=== PATIENT | female | born 1945 | race African-American/Black ===

== ENCOUNTER 2016-07-22 12:26 | Inpatient (IN) | payer MEDICARE ==
[~2016-07-22] VITALS: Ht 160 cm; Wt 68.2 kg
[~2016-07-22 12:26] MED LIST: AMIO200T2 PO; ASPI-482 PO; CARV6.25 PO; CRESTOR10 MG PO; DIGO0.25 PO; FURO-68 PO; FURO80TA72 PO; GABA-585 PO; INSU100V13 SQ; LISI5TAB PO; LOPE1LIQ7 PO; METF10002 PO; POTA20TA84 PO; WARF6TAB PO
[2016-07-22] MEDS ORDERED: FUROSEMIDE 40 MG/4 ML VIAL IVP ONE (15:30)
[2016-07-22] MEDS ORDERED: 0.9 % SODIUM CHLORIDE 10 ML DISP.SYRIN. IV PRN (15:45)
[2016-07-22] MEDS ORDERED: DEXTROSE 50% 25 GM / 50ML DISP.SYRIN. IV PRN (15:45)
[2016-07-22 15:59] LABS: BASO % 1 % (0-3); EOS % 2 % (0-3); HEMATOCRIT 36.2 % (36.0-47.0); HEMOGLOBIN 11.4 g/dL (12.0-15.5); LYMPH % 18 % (24-48); MEAN CORPUSCULAR HEMOGLOBIN 25 pg (25-35); MEAN CORPUSCULAR HGB CONC 31 g/dL (31-37); MEAN CORPUSCULAR VOLUME 80 fL (79-100); MONO % 12 % (0-9); NEUT % 67 % (31-73); PLATELET COUNT 137 x10^3/uL (140-400); RED BLOOD COUNT 4.53 x10^6/uL (3.50-5.40); RED CELL DISTRIBUTION WIDTH 17.2 % (11.5-14.5); WHITE BLOOD COUNT 5.5 x10^3/uL (4.0-11.0)
[2016-07-22] MEDS ORDERED: METO5TAB55 PO (15:59)
[2016-07-22] MEDS ORDERED: COLE1TAB PO (15:59)
[2016-07-22] MEDS ORDERED: AMIO200T7 PO (15:59)
[2016-07-22] MEDS ORDERED: WARF5TAB7 PO (15:59)
[2016-07-22] MEDS ORDERED: INSU100I30 SQ ×2 (15:59→16:07)
[2016-07-22] MEDS ORDERED: ATOR40TA59 PO (15:59)
--- NOTE | 2016-07-22 16:03 | RAD ---
EXAM: Chest one view. HISTORY: Shortness of breath, lower extremity edema. COMPARISON: 06/05/2014. FINDINGS: A frontal view of the chest is obtained. A left-sided pacemaker/defibrillator has its leads in the right atrium, right ventricle and a left cardiac vein. A linear opacity in the left midlung may be mild atelectasis or scarring. A trace right pleural effusion may be present. There is no pneumothorax. The heart is moderately enlarged. IMPRESSION: 1. Moderate cardiomegaly. Possible small right pleural effusion.
[2016-07-22 16:07] LABS: CALCIUM 8.9 mg/dL (8.5-10.1); CREATININE 1.7 mg/dL (0.6-1.0); GFR 35.6; POTASSIUM 4.3 mmol/L (3.5-5.1)
[2016-07-22] MEDS ORDERED: METO10TA81 PO (16:07)
[2016-07-22] MEDS: IPRATRPIUM/ALBUTEROL 0.5/2.5MG 3 ML NEBU. NEB SCH ×2 (16:41→19:39)
[2016-07-22 16:56] VITALS: BP 108/66
[2016-07-22] MEDS ORDERED: METOCLOPRAMIDE 10 MG TABLET PO PRN (17:30)
[2016-07-22 18:14] LABS: PROTHROMBIN TIME PATIENT 40.8 SEC (11.7-14.0)
[2016-07-22 18:17] LABS: INR 4.6 (0.8-1.1)
[2016-07-22] MEDS: POTASSIUM CHLORIDE 20 MEQ TABLET.ER. PO SCH (18:41)
[2016-07-22] MEDS: METFORMIN 1,000 MG TABLET PO SCH (18:42)
[2016-07-22] MEDS: CARVEDILOL 6.25 MG TABLET PO SCH (18:42)
[2016-07-22 19:48] VITALS: BP 139/66
[2016-07-22] MEDS: GABAPENTIN 100 MG CAPSULE. PO SCH (20:48)
[2016-07-22] MEDS: COLESTIPOL HCL 1 GM TABLET PO SCH (20:48)
--- NOTE | 2016-07-22 21:27 | PDOC ---
Provider Note Provider Note Pt seen.H&P dictated. #[id number] AFSHAN SLADE MD Jul 22, 2016 21:27
[2016-07-22 23:00] VITALS: BP 139/66
--- NOTE | 2016-07-23 00:47 | HP ---
ADMIT DATE: 07/22/2016 PATIENT LOCATION: 268. ATTENDING PHYSICIAN: Dr. Garcia. REASON FOR ADMISSION TO THE HOSPITAL: Shortness of breath, swelling of the lower extremities, congestive heart failure, acute on chronic systolic heart failure. HISTORY OF PRESENT ILLNESS: The patient is a 71-year-old female patient known to me. She has a history of cardiomyopathy, dilated and she has an ejection fraction of 20%. She had an AICD and she was complaining of shortness of breath as well as swelling in lower extremities and was found to be in congestive heart failure notoriously worse in last 4-5 days and was admitted to the hospital for congestive heart failure. PAST MEDICAL HISTORY: History of hypertension, diabetes, congestive heart failure, cardiomyopathy, AICD. PAST SURGICAL HISTORY: Tubal , right tube removed, AICD, gallbladder surgery, cardiac catheterization in the past. FAMILY HISTORY: Hypertension, diabetes, heart disease in the family. SOCIAL HISTORY: Denies smoking, alcohol or drug abuse. 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 ALLERGIES: CONTRAST, IVP DYE. MEDICATIONS: She is on Coumadin 5 mg, digoxin 250 mg, Lasix 80 mg twice a day, gabapentin 100 mg 2 tablets 3 times daily, Reglan 5 mg 4 times daily, Levemir she cut down to less than 10 units daily, lisinopril 5 mg daily, Pacerone 200 mg daily, atorvastatin 40 mg daily, Coreg 6.25 twice a day, potassium 20 mEq twice a day, metformin 1000 mg twice a day and Imodium p.r.n. REVIEW OF SYSTEMS: CARDIAC: No chest pain, has some shortness of breath. GASTROINTESTINAL: No nausea or vomiting. NEUROLOGICAL: No weakness. EXTREMITIES: The patient has some swelling in lower extremities. PHYSICAL EXAMINATION: VITAL SIGNS: At the time of admission shows a temperature 98, pulse 63, respirations 16, blood pressure 108/66, 96% on room air. HEENT: Head is atraumatic. Pupils equal. Oral cavity: No congestion. NECK: Supple. Thyroid not enlarged. JVD is elevated. CHEST: Symmetrical, has a pacemaker, AICD, left-sided chest. CARDIOVASCULAR: S1, S2. LUNGS: Few crackles at the bases. ABDOMEN: Soft. No mass palpable. EXTERNAL GENITALIA: No [place]. RECTAL: Deferred. EXTREMITIES: 2+ edema of the dorsum of the feet, 1+ of the lower legs. NEUROLOGIC: Cranial nerves intact. Power 5/5 in all extremities. LABORATORY DATA: White count is 5.5, hemoglobin 11, platelets 137. Electrolytes: Sodium 141, potassium 4.3, chloride 104, bicarbonate 29, BUN 45, creatinine 1.7, glucose 87. BNP 22,673. INR is 4.6. Chest x-ray shows cardiomegaly with right pleural effusion. EKG done, report is pending. FINAL IMPRESSION: 1. Acute on chronic systolic heart failure. 2. Dilated cardiomyopathy. 3. An implantable cardioverter defibrillator present, ejection fraction 20%. 4. Diabetes type 2. 5. Hypertension. 6. Hyperlipidemia. 7. Diabetic gastroparesis. PLAN: At this time, was admitted to the hospital. The patient was admitted to the hospital. RONALDO Leahy. Cardiology consultation, echocardiogram. ADDENDUM: The patient had a pacemaker battery replaced last year at the [place] and we will have Cardiology see the patient. AFSHAN GARCIA MD DR: JALYN/david JOB#: [id number] / [id number]
[2016-07-23 02:30] VITALS: BP 127/57
[2016-07-23 04:50] LABS: BASO % 0 % (0-3); EOS % 4 % (0-3); HEMATOCRIT 33.8 % (36.0-47.0); HEMOGLOBIN 10.8 g/dL (12.0-15.5); LYMPH % 19 % (24-48); MEAN CORPUSCULAR HEMOGLOBIN 25 pg (25-35); MEAN CORPUSCULAR HGB CONC 32 g/dL (31-37); MEAN CORPUSCULAR VOLUME 78 fL (79-100); MONO % 12 % (0-9); NEUT % 66 % (31-73); PLATELET COUNT 128 x10^3/uL (140-400); RED BLOOD COUNT 4.32 x10^6/uL (3.50-5.40); RED CELL DISTRIBUTION WIDTH 17.1 % (11.5-14.5); WHITE BLOOD COUNT 5.3 x10^3/uL (4.0-11.0)
[2016-07-23 04:58] LABS: PROTHROMBIN TIME PATIENT 41.8 SEC (11.7-14.0)
[2016-07-23 05:10] LABS: ALBUMIN 3.2 g/dL (3.4-5.0); ALBUMIN/GLOBULIN RATIO 1.1 (1.0-1.7); CALCIUM 8.7 mg/dL (8.5-10.1); CREATININE 1.5 mg/dL (0.6-1.0); GFR 41.2; POTASSIUM 4.5 mmol/L (3.5-5.1); TOTAL BILIRUBIN 0.5 mg/dL (0.2-1.0); TOTAL PROTEIN 6.2 g/dL (6.4-8.2)
[2016-07-23 05:16] LABS: CHOLESTEROL 93 mg/dL (0-200); HDLC 25 mg/dL (40-60); TRIGLYCERIDES 140 mg/dL (0-150)
[2016-07-23 05:30] LABS: CHOLESTEROL/HDL RATIO 3.7
[2016-07-23 05:39] LABS: INR 4.7 (0.8-1.1)
[2016-07-23 07:00] VITALS: BP 142/40
[2016-07-23] MEDS: IPRATRPIUM/ALBUTEROL 0.5/2.5MG 3 ML NEBU. NEB SCH (07:23)
[2016-07-23] MEDS ORDERED: LISINOPRIL 5 MG TABLET. PO SCH (09:00)
[2016-07-23] MEDS ORDERED: DIGOXIN 250 MCG TABLET PO SCH (09:00)
[2016-07-23] MEDS ORDERED: FUROSEMIDE 40 MG/4 ML VIAL IVP SCH (09:00)
[2016-07-23] MEDS: COLESTIPOL HCL 1 GM TABLET PO SCH ×3 (09:14→20:58)
[2016-07-23] MEDS: CARVEDILOL 6.25 MG TABLET PO SCH ×2 (09:14→17:21)
[2016-07-23] MEDS: ASPIRIN ENTERIC COATED 81 MG TABLET.DR. PO SCH (09:14)
--- NOTE | 2016-07-23 09:14 | EKG ---
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
[2016-07-23] MEDS: METFORMIN 1,000 MG TABLET PO SCH ×2 (09:15→17:22)
[2016-07-23] MEDS: AMIODARONE HCL 200 MG TABLET PO SCH (09:16)
[2016-07-23] MEDS: GABAPENTIN 100 MG CAPSULE. PO SCH ×3 (09:16→20:58)
[2016-07-23] MEDS: FUROSEMIDE 40 MG/4 ML VIAL IVP SCH ×2 (09:17→20:59)
[2016-07-23] MEDS: POTASSIUM CHLORIDE 20 MEQ TABLET.ER. PO SCH ×2 (09:22→17:22)
[2016-07-23 11:00] VITALS: BP 148/70
--- NOTE | 2016-07-23 13:45 | PDOC2 ---
CONSULT Date of Consult Date of Consult DATE: 07/23/16 TIME: 13:38 Reason for Consult Reason for Consult: Acute on chronic systolic heart failure Referring Physician Referring Physician: Dr Garcia Identification/Chief Complaint Chief Complaint Swelling in lower extremities b/l, SOB History of Present Illness Reason for Visit: This is a pleasant 71 year old female who presented with complaints of swelling in lower extremities b/l and shortness of breath. She has a known history of CHF as well as dilated cardiomyopathy and a pacemaker. Swelling was worse at night but she also states that it did not improve much as she slept with her feet elevated. She states that she noticed swelling worsening over the last week , which had become painful, and was the cause for her to visit to Dr Garcia for examination, and he sent her to the hospital. She takes Lasix 80mg BID and denies having missed any doses. After admission, she was given Lasix IV and today she states that the swelling is greatly improved and that she has not felt shortness of breath today and has not done any breathing treatments. She has also received an echo this admission. Current Medications Current Medications Current Medications Furosemide (Lasix) 40 mg BID92 IVP ; Start 07/23/16 at 09:00; Stop 07/23/16 at 09: 00; Status DC Furosemide (Lasix) 40 mg 1X ONCE IVP Last administered on 07/22/16 15:30; Start 07/22/16 at 15:30; Stop 07/22/16 at 15:38; Status DC Albuterol/ Ipratropium (Duoneb) 3 ml RTQID NEB Last administered on 07/23/16 07 :23; Start 07/22/16 at 16:00; Stop 07/23/16 at 07:40; Status DC Albuterol Sulfate (Ventolin Neb Soln) 2.5 mg PRN Q4HRS PRN NEB SOA; Start at 15:45 Dextrose 12.5 gm PRN Q15MIN PRN IV SEE COMMENTS; Start 07/22/16 at 15:45 Sodium Chloride (Normal Saline Flush) 3 ml PRN DAILY PRN IV AFTER MEDS AND BLOOD DRAWS; Start 07/22/16 at 15:45 Amiodarone HCl (Cordarone) 200 mg DAILY PO Last administered on 07/23/16 09:16 ; Start 07/23/16 at 09:00 Aspirin (Ecotrin) 81 mg DAILY PO Last administered on 07/23/16 09:14; Start 07/23/16 at 09:00 Atorvastatin Calcium (Lipitor) 40 mg QHS PO ; Start 07/23/16 at 21:00 Carvedilol (Coreg) 6.25 mg BIDWMEALS PO Last administered on 07/23/16 09:14; Start 07/22/16 at 18:30 Colestipol HCl (Colestid) 1 gm TID PO Last administered on 07/23/16 09:14; Start 07/22/16 at 21:00 Gabapentin (Neurontin) 200 mg TID PO Last administered on 07/23/16 09:16; Start 07/22/16 at 21:00 Lisinopril (Prinivil) 5 mg DAILY PO Last administered on 07/23/16 09:15; Start 07/23/16 at 09:00 Metformin HCl (Glucophage) 1,000 mg BIDWMEALS PO Last administered on 07/23/16 09:15; Start 07/22/16 at 18:30 Metoclopramide HCl (Reglan) 5 mg PRN BID PRN PO NAUSEA; Start 07/22/16 at 17:30 Warfarin Sodium (Coumadin) 5 mg DAILY16 PO ; Start 07/24/16 at 16:00 Digoxin (Lanoxin) 250 mcg DAILY PO Last administered on 07/23/16 09:15; Start 07/23/16 at 09:00 Potassium Chloride (Klor-Con) 20 meq BIDWMEALS PO Last administered on 09:22; Start 07/22/16 at 18:30 Furosemide (Lasix) 80 mg Q12HR IVP Last administered on 07/23/16 09:17; Start 07/23/16 at 09:00 Warfarin Sodium (Coumadin Per Physician) 1 each PRN DAILY PRN MC SEE COMMENTS Last administered on 07/23/16 10:36; Start 07/22/16 at 18:30 Active Scripts Active Prinivil (Lisinopril) 5 Mg Tablet 5 Mg PO DAILY Reported Tresiba Flextouch U-100 (Insulin Degludec) 100 Unit/1 Ml Insuln.pen 100 Unit SQ PRN QHS PRN Reglan (Metoclopramide Hcl) 10 Mg Tablet 5 Mg PO PRN BID PRN Atorvastatin Calcium 40 Mg Tablet 1 Tab PO DAILY Colestid (Colestipol Hcl) 1 Gm Tablet 1 Gm PO TID Pacerone (Amiodarone Hcl) 200 Mg Tablet 200 Mg PO DAILY Warfarin Sodium 5 Mg Tablet 1 Tab PO DAILY Lasix (Furosemide) 80 Mg Tablet 1 Tab PO BID Digoxin 0.25 Mg/5 Ml Solution 0.25 Mg PO DAILY Gabapentin 100 Mg Capsule 2 Cap PO TID Aspir 81 (Aspirin) 81 Mg Tablet.dr 1 Tab PO DAILY Coreg (Carvedilol) 6.25 Mg Tablet 1 Tab PO BID Metformin Hcl 1,000 Mg Tablet 1,000 Mg PO BID K-Tab ER (Potassium Chloride) 20 Meq Tablet.er 20 Meq PO BID Allergies Allergies: Coded Allergies: Iodinated Contrast Media - Oral and (Verified Allergy, Intermediate, ) lactose (Unverified Allergy, Intermediate, 06/10/15) strawberry (Verified Allergy, Intermediate, 06/10/15) Physical Exam General: Alert, Cooperative, No acute distress Lungs: Clear to auscultation, Normal air movement Heart: Regular rate Extremities: Other (Trace edema in R LE) Vitals VITALS Vital Signs Date Time Temp Pulse Resp B/P Pulse Ox O2 Delivery O2 Flow Rate FiO2 07/23/16 11:00 98.0 61 16 148/70 97 Room Air 98.0 Labs Labs Laboratory Tests Test 07/22/16 15:50 07/22/16 17:50 07/22/16 22:57 07/23/16 04:25 White Blood Count 5.5x10^3/uL (4.0-11.0) 5.3x10^3/uL (4.0-11.0) Red Blood Count 4.53x10^6/uL (3.50-5.40) 4.32x10^6/uL (3.50-5.40) Hemoglobin 11.4g/dL (12.0-15.5) 10.8g/dL (12.0-15.5) Hematocrit 36.2% (36.0-47.0) 33.8% (36.0-47.0) Mean Corpuscular Volume 80fL (79-100) 78fL (79-100) Mean Corpuscular Hemoglobin 25pg (25-35) 25pg (25-35) Mean Corpuscular Hemoglobin Concent 31g/dL (31-37) 32g/dL (31-37) Red Cell Distribution Width 17.2% (11.5-14.5) 17.1% (11.5-14.5) Platelet Count 137x10^3/uL (140-400) 128x10^3/uL (140-400) Neutrophils (%) (Auto) 67% (31-73) 66% (31-73) Lymphocytes (%) (Auto) 18% (24-48) 19% (24-48) Monocytes (%) (Auto) 12% (0-9) 12% (0-9) Eosinophils (%) (Auto) 2% (0-3) 4% (0-3) Basophils (%) (Auto) 1% (0-3) 0% (0-3) Neutrophils # (Auto) 3.7x10^3uL (1.8-7.7) 3.5x10^3uL (1.8-7.7) Lymphocytes # (Auto) 1.0x10^3/uL (1.0-4.8) 1.0x10^3/uL (1.0-4.8) Monocytes # (Auto) 0.6x10^3/uL (0.0-1.1) 0.6x10^3/uL (0.0-1.1) Eosinophils # (Auto) 0.1x10^3/uL (0.0-0.7) 0.2x10^3/uL (0.0-0.7) Basophils # (Auto) 0.0x10^3/uL (0.0-0.2) 0.0x10^3/uL (0.0-0.2) Sodium Level 141mmol/L (136-145) 141mmol/L (136-145) Potassium Level 4.3mmol/L (3.5-5.1) 4.5mmol/L (3.5-5.1) Chloride Level 104mmol/L (98-107) 105mmol/L (98-107) Carbon Dioxide Level 29mmol/L (21-32) 26mmol/L (21-32) Anion Gap 8 (6-14) 10 (6-14) Blood Urea Nitrogen 45mg/dL (7-20) 45mg/dL (7-20) Creatinine 1.7mg/dL (0.6-1.0) 1.5mg/dL (0.6-1.0) Estimated GFR (Cockcroft-Gault) 35.6 41.2 Glucose Level 87mg/dL (70-99) 90mg/dL (70-99) Calcium Level 8.9mg/dL (8.5-10.1) 8.7mg/dL (8.5-10.1) VT-Uwr-N-Type Natriuretic Peptide 28576rr/mL (0-124) Prothrombin Time 40.8SEC (11.7-14.0) 41.8SEC (11.7-14.0) Prothromb Time International Ratio 4.6 (0.8-1.1) 4.7 (0.8-1.1) Glucose (Fingerstick) 97mg/dL (70-99) BUN/Creatinine Ratio 30 (6-20) Magnesium Level 1.7mg/dL (1.8-2.4) Total Bilirubin 0.5mg/dL (0.2-1.0) Aspartate Amino Transf (AST/SGOT) 16U/L (15-37) Alanine Aminotransferase (ALT/SGPT) 14U/L (14-59) Alkaline Phosphatase 122U/L (46-116) Total Protein 6.2g/dL (6.4-8.2) Albumin 3.2g/dL (3.4-5.0) Albumin/Globulin Ratio 1.1 (1.0-1.7) Triglycerides Level 140mg/dL (0-150) Cholesterol Level 93mg/dL (0-200) LDL Cholesterol, Calculated 40mg/dL (0-100) VLDL Cholesterol, Calculated 28mg/dL (0-40) HDL Cholesterol 25mg/dL (40-60) Cholesterol/HDL Ratio 3.7 Thyroid Stimulating Hormone (TSH) 2.525uIU/mL (0.358-3.74) Digoxin Level 3.1ng/mL (0.9-2.0) Digoxin Last Dose Date 07/22/16 Digoxin Last Dose Time 0900 Test 07/23/16 09:13 07/23/16 12:07 Glucose (Fingerstick) 91mg/dL (70-99) 116mg/dL (70-99) Laboratory Tests Test 07/22/16 15:50 07/22/16 17:50 07/22/16 22:57 07/23/16 04:25 White Blood Count 5.5x10^3/uL (4.0-11.0) 5.3x10^3/uL (4.0-11.0) Red Blood Count 4.53x10^6/uL (3.50-5.40) 4.32x10^6/uL (3.50-5.40) Hemoglobin 11.4g/dL (12.0-15.5) 10.8g/dL (12.0-15.5) Hematocrit 36.2% (36.0-47.0) 33.8% (36.0-47.0) Mean Corpuscular Volume 80fL (79-100) 78fL (79-100) Mean Corpuscular Hemoglobin 25pg (25-35) 25pg (25-35) Mean Corpuscular Hemoglobin Concent 31g/dL (31-37) 32g/dL (31-37) Red Cell Distribution Width 17.2% (11.5-14.5) 17.1% (11.5-14.5) Platelet Count 137x10^3/uL (140-400) 128x10^3/uL (140-400) Neutrophils (%) (Auto) 67% (31-73) 66% (31-73) Lymphocytes (%) (Auto) 18% (24-48) 19% (24-48) Monocytes (%) (Auto) 12% (0-9) 12% (0-9) Eosinophils (%) (Auto) 2% (0-3) 4% (0-3) Basophils (%) (Auto) 1% (0-3) 0% (0-3) Neutrophils # (Auto) 3.7x10^3uL (1.8-7.7) 3.5x10^3uL (1.8-7.7) Lymphocytes # (Auto) 1.0x10^3/uL (1.0-4.8) 1.0x10^3/uL (1.0-4.8) Monocytes # (Auto) 0.6x10^3/uL (0.0-1.1) 0.6x10^3/uL (0.0-1.1) Eosinophils # (Auto) 0.1x10^3/uL (0.0-0.7) 0.2x10^3/uL (0.0-0.7) Basophils # (Auto) 0.0x10^3/uL (0.0-0.2) 0.0x10^3/uL (0.0-0.2) Sodium Level 141mmol/L (136-145) 141mmol/L (136-145) Potassium Level 4.3mmol/L (3.5-5.1) 4.5mmol/L (3.5-5.1) Chloride Level 104mmol/L (98-107) 105mmol/L (98-107) Carbon Dioxide Level 29mmol/L (21-32) 26mmol/L (21-32) Anion Gap 8 (6-14) 10 (6-14) Blood Urea Nitrogen 45mg/dL (7-20) 45mg/dL (7-20) Creatinine 1.7mg/dL (0.6-1.0) 1.5mg/dL (0.6-1.0) Estimated GFR (Cockcroft-Gault) 35.6 41.2 Glucose Level 87mg/dL (70-99) 90mg/dL (70-99) Calcium Level 8.9mg/dL (8.5-10.1) 8.7mg/dL (8.5-10.1) AV-Foz-V-Type Natriuretic Peptide 68331ql/mL (0-124) Prothrombin Time 40.8SEC (11.7-14.0) 41.8SEC (11.7-14.0) Prothromb Time International Ratio 4.6 (0.8-1.1) 4.7 (0.8-1.1) Glucose (Fingerstick) 97mg/dL (70-99) BUN/Creatinine Ratio 30 (6-20) Magnesium Level 1.7mg/dL (1.8-2.4) Total Bilirubin 0.5mg/dL (0.2-1.0) Aspartate Amino Transf (AST/SGOT) 16U/L (15-37) Alanine Aminotransferase (ALT/SGPT) 14U/L (14-59) Alkaline Phosphatase 122U/L (46-116) Total Protein 6.2g/dL (6.4-8.2) Albumin 3.2g/dL (3.4-5.0) Albumin/Globulin Ratio 1.1 (1.0-1.7) Triglycerides Level 140mg/dL (0-150) Cholesterol Level 93mg/dL (0-200) LDL Cholesterol, Calculated 40mg/dL (0-100) VLDL Cholesterol, Calculated 28mg/dL (0-40) HDL Cholesterol 25mg/dL (40-60) Cholesterol/HDL Ratio 3.7 Thyroid Stimulating Hormone (TSH) 2.525uIU/mL (0.358-3.74) Digoxin Level 3.1ng/mL (0.9-2.0) Digoxin Last Dose Date 07/22/16 Digoxin Last Dose Time 0900 Test 07/23/16 09:13 07/23/16 12:07 Glucose (Fingerstick) 91mg/dL (70-99) 116mg/dL (70-99) Assessment/Plan Assessment/Plan Acute on chronic systolic heart failure Dilated cardiomyopathy with EF of 10% HTN Hyperlipidemia Recommend medical TX with cardiac rehab Discontinue Lisinopril Start Entresto PO daily Thank you very much for allowing me to participate in the care of this patient. HEATHER CHERRY MD Jul 23, 2016 13:45
[2016-07-23] MEDS ORDERED: MAGNESIUM SULFATE 2GM 50 ML IV ONE (14:00)
--- NOTE | 2016-07-23 14:09 | CARD ---
APPROVED REPORT EXAM: Two-dimensional and M-mode echocardiogram with Doppler and color Doppler. Other Information Quality : Average Rhythm : Pacemaker INDICATION Congestive Heart Failure 2D DIMENSIONS RVDd3.4 (2.9-3.5cm)Left Atrium(2D)4.5 (1.6-4.0cm) IVSd1.0 (0.7-1.1cm)Aortic Root(2D)2.7 (2.0-3.7cm) LVDd5.5 (3.9-5.9cm)LVOT Diameter1.9 (1.8-2.4cm) PWd1.0 (0.7-1.1cm)LVDs4.5 (2.5-4.0cm) SV54.5 mlLVEF(%)10.0 (>50%) Aortic Valve AoV Peak Geremias.148.7cm/sAoV VTI24.1cm AO Peak GR.8.8mmHgLVOT VTI 9.72cm AO Mean GR.4mmHg Mitral Valve MV E Uvtdvfje11.2cm/sMV E Peak Gr.82mmHg MV DECEL [id number] E Mean Gr.2mmHg MV [id number] (PHT)5.24cm2 Tricuspid Valve TR P. [id number] [id number] TR Peak Gr.[id number] LEFT VENTRICLE The left ventricle is dilated There is normal left ventricular wall thickness. Left ventricle systoli c function is severely impaired. The Ejection Fraction is 10%. There is global hypokinesis of the lef t ventricle. Apical motion consistent with pacemaker activation. RIGHT VENTRICLE The right ventricle is dilated The right ventricular systolic function is normal. There is a pacemake r lead seen in the RV/RA. ATRIA The left atrium is dilated. The right atrium size is normal. The interatrial septum is intact with no evidence for an atrial septal defect or patent foramen ovale as noted on 2-D or Doppler imaging. AORTIC VALVE The aortic valve is moderately sclerotic. The aortic valve is trileaflet. Doppler and Color Flow reve aled trace aortic regurgitation. There is no significant aortic valvular stenosis. MITRAL VALVE Mitral annular calcification is mild. The mitral valve leaflets are thickened. There is no mitral rosanna ve stenosis. Doppler and Color Flow revealed mild to moderate mitral regurgitation. TRICUSPID VALVE The tricuspid valve is normal in structure. Doppler and Color Flow revealed moderate tricuspid regurg itation. There is moderate pulmonary hypertension. The PA pressure was estimated at 51 mmHg. There is no tricuspid valve stenosis. PULMONIC VALVE The pulmonic valve is not well visualized. Doppler and Color Flow revealed mild pulmonic valvular reg urgitation. There is no pulmonic valvular stenosis. GREAT VESSELS The aortic root is normal in size. The IVC is normal in size and collapses <50% with inspiration. PERICARDIAL EFFUSION There is moderate left pleural effusion. There is no evidence of significant pericardial effusion. Critical Notification Critical Value: No <Conclusion> The left ventricle is dilated Left ventricle systolic function is severely impaired. The Ejection Fraction is 10%. The right ventricle is dilated The left atrium is dilated. The right atrium size is normal. Doppler and Color Flow revealed trace aortic regurgitation. The aortic valve is moderately sclerotic. The aortic valve is trileaflet. Doppler and Color Flow revealed mild to moderate mitral regurgitation. Doppler and Color Flow revealed moderate tricuspid regurgitation. There is moderate pulmonary hypertension. The PA pressure was estimated at 51 mmHg. The pulmonic valve is not well visualized. Doppler and Color Flow revealed mild pulmonic valvular regurgitation. There is no evidence of significant pericardial effusion. There is moderate left pleural effusion.
--- NOTE | 2016-07-23 14:48 | PDOC ---
PROGRESS NOTES Subjective Subjective feels better today, less sob and swelling Objective Objective Vital Signs Date Time Temp Pulse Resp B/P Pulse Ox O2 Delivery O2 Flow Rate FiO2 07/23/16 11:00 98.0 61 16 148/70 97 Room Air 98.0 Intake and Output 07/23/16 07:00 Intake Total 600 ml Output Total 1250 ml Balance -650 ml Intake Oral 600 ml Output Urine Total 1250 ml Physical Exam Abdomen: Normal bowel sounds Heart: Regular rate Extremities: No clubbing, Other (Trace edema in R LE) General: Alert, Cooperative, No acute distress Lungs: Clear to auscultation, Normal air movement MUSCULOSKELETAL: No deformity Skin: No breakdown Assessment Assessment FINAL IMPRESSION: 1. Acute on chronic systolic heart failure. 2. Dilated cardiomyopathy. 3. An implantable cardioverter defibrillator present, ejection fraction 10%. 4. Diabetes type 2. 5. Hypertension. 6. Hyperlipidemia. 7. Diabetic gastroparesis. PLAN: pacemaker check. iv lasix. monitor labs dig 3.0, hold for few days. inr 4.6 hold coumadin, At this time, was admitted to the hospital. The patient was admitted to the hospital. IV Lasix. Cardiology consultation, echocardiogram. ADDENDUM: The patient had a pacemaker battery replaced last year at the [facility] and we will have Cardiology see the patient. Problems: Comment Review of Relevant I have reviewed the following items marquise (where applicable) has been applied. Labs Laboratory Tests Test 07/22/16 15:50 07/22/16 17:50 07/22/16 22:57 07/23/16 04:25 White Blood Count 5.5x10^3/uL (4.0-11.0) 5.3x10^3/uL (4.0-11.0) Red Blood Count 4.53x10^6/uL (3.50-5.40) 4.32x10^6/uL (3.50-5.40) Hemoglobin 11.4g/dL (12.0-15.5) 10.8g/dL (12.0-15.5) Hematocrit 36.2% (36.0-47.0) 33.8% (36.0-47.0) Mean Corpuscular Volume 80fL (79-100) 78fL (79-100) Mean Corpuscular Hemoglobin 25pg (25-35) 25pg (25-35) Mean Corpuscular Hemoglobin Concent 31g/dL (31-37) 32g/dL (31-37) Red Cell Distribution Width 17.2% (11.5-14.5) 17.1% (11.5-14.5) Platelet Count 137x10^3/uL (140-400) 128x10^3/uL (140-400) Neutrophils (%) (Auto) 67% (31-73) 66% (31-73) Lymphocytes (%) (Auto) 18% (24-48) 19% (24-48) Monocytes (%) (Auto) 12% (0-9) 12% (0-9) Eosinophils (%) (Auto) 2% (0-3) 4% (0-3) Basophils (%) (Auto) 1% (0-3) 0% (0-3) Neutrophils # (Auto) 3.7x10^3uL (1.8-7.7) 3.5x10^3uL (1.8-7.7) Lymphocytes # (Auto) 1.0x10^3/uL (1.0-4.8) 1.0x10^3/uL (1.0-4.8) Monocytes # (Auto) 0.6x10^3/uL (0.0-1.1) 0.6x10^3/uL (0.0-1.1) Eosinophils # (Auto) 0.1x10^3/uL (0.0-0.7) 0.2x10^3/uL (0.0-0.7) Basophils # (Auto) 0.0x10^3/uL (0.0-0.2) 0.0x10^3/uL (0.0-0.2) Sodium Level 141mmol/L (136-145) 141mmol/L (136-145) Potassium Level 4.3mmol/L (3.5-5.1) 4.5mmol/L (3.5-5.1) Chloride Level 104mmol/L (98-107) 105mmol/L (98-107) Carbon Dioxide Level 29mmol/L (21-32) 26mmol/L (21-32) Anion Gap 8 (6-14) 10 (6-14) Blood Urea Nitrogen 45mg/dL (7-20) 45mg/dL (7-20) Creatinine 1.7mg/dL (0.6-1.0) 1.5mg/dL (0.6-1.0) Estimated GFR (Cockcroft-Gault) 35.6 41.2 Glucose Level 87mg/dL (70-99) 90mg/dL (70-99) Calcium Level 8.9mg/dL (8.5-10.1) 8.7mg/dL (8.5-10.1) FU-Otv-M-Type Natriuretic Peptide 14219zc/mL (0-124) Prothrombin Time 40.8SEC (11.7-14.0) 41.8SEC (11.7-14.0) Prothromb Time International Ratio 4.6 (0.8-1.1) 4.7 (0.8-1.1) Glucose (Fingerstick) 97mg/dL (70-99) BUN/Creatinine Ratio 30 (6-20) Magnesium Level 1.7mg/dL (1.8-2.4) Total Bilirubin 0.5mg/dL (0.2-1.0) Aspartate Amino Transf (AST/SGOT) 16U/L (15-37) Alanine Aminotransferase (ALT/SGPT) 14U/L (14-59) Alkaline Phosphatase 122U/L (46-116) Total Protein 6.2g/dL (6.4-8.2) Albumin 3.2g/dL (3.4-5.0) Albumin/Globulin Ratio 1.1 (1.0-1.7) Triglycerides Level 140mg/dL (0-150) Cholesterol Level 93mg/dL (0-200) LDL Cholesterol, Calculated 40mg/dL (0-100) VLDL Cholesterol, Calculated 28mg/dL (0-40) HDL Cholesterol 25mg/dL (40-60) Cholesterol/HDL Ratio 3.7 Thyroid Stimulating Hormone (TSH) 2.525uIU/mL (0.358-3.74) Digoxin Level 3.1ng/mL (0.9-2.0) Digoxin Last Dose Date 07/22/16 Digoxin Last Dose Time 0900 Test 07/23/16 09:13 07/23/16 12:07 Glucose (Fingerstick) 91mg/dL (70-99) 116mg/dL (70-99) Medications Current Medications Albuterol Sulfate (Ventolin Neb Soln) 2.5 mg PRN Q4HRS PRN NEB SOA; Start at 15:45 Albuterol/ Ipratropium (Duoneb) 3 ml RTQID NEB Last administered on 07/23/16 07 :23; Start 07/22/16 at 16:00; Stop 07/23/16 at 07:40; Status DC Amiodarone HCl (Cordarone) 200 mg DAILY PO Last administered on 07/23/16 09:16 ; Start 07/23/16 at 09:00 Aspirin (Ecotrin) 81 mg DAILY PO Last administered on 07/23/16 09:14; Start 07/23/16 at 09:00 Atorvastatin Calcium (Lipitor) 40 mg QHS PO ; Start 07/23/16 at 21:00 Carvedilol (Coreg) 6.25 mg BIDWMEALS PO Last administered on 07/23/16 09:14; Start 07/22/16 at 18:30 Colestipol HCl (Colestid) 1 gm TID PO Last administered on 07/23/16 14:16; Start 07/22/16 at 21:00 Dextrose 12.5 gm PRN Q15MIN PRN IV SEE COMMENTS; Start 07/22/16 at 15:45 Digoxin (Lanoxin) 250 mcg DAILY PO Last administered on 07/23/16 09:15; Start 07/23/16 at 09:00; Stop 07/23/16 at 14:44; Status DC Furosemide (Lasix) 40 mg 1X ONCE IVP Last administered on 07/22/16 15:30; Start 07/22/16 at 15:30; Stop 07/22/16 at 15:38; Status DC Furosemide (Lasix) 40 mg BID92 IVP ; Start 07/23/16 at 09:00; Stop 07/23/16 at 09: 00; Status DC Furosemide (Lasix) 80 mg Q12HR IVP Last administered on 07/23/16 09:17; Start 07/23/16 at 09:00 Gabapentin (Neurontin) 200 mg TID PO Last administered on 07/23/16 14:16; Start 07/22/16 at 21:00 Lisinopril (Prinivil) 5 mg DAILY PO Last administered on 07/23/16 09:15; Start 07/23/16 at 09:00; Stop 07/23/16 at 14:22; Status DC Magnesium Sulfate/ Dextrose (Magnesium Sulfate PREMIX 2GM) 50 ml @ 25 mls/hr 1X ONCE IV Last administered on 07/23/16 14:17; Start 07/23/16 at 14:00; Stop 07/23/16 at 15:59 Metformin HCl (Glucophage) 1,000 mg BIDWMEALS PO Last administered on 07/23/16 09:15; Start 07/22/16 at 18:30 Metoclopramide HCl (Reglan) 5 mg PRN BID PRN PO NAUSEA; Start 07/22/16 at 17:30 Potassium Chloride (Klor-Con) 20 meq BIDWMEALS PO Last administered on 09:22; Start 07/22/16 at 18:30 Sacubitril/ Valsartan (Entresto 24 Mg-26 Mg) 1 tab BID PO ; Start 07/23/16 at 21: 00 Sodium Chloride (Normal Saline Flush) 3 ml PRN DAILY PRN IV AFTER MEDS AND BLOOD DRAWS; Start 07/22/16 at 15:45 Warfarin Sodium (Coumadin) 5 mg DAILY16 PO ; Start 07/24/16 at 16:00; Stop 07/24 at 16:00; Status DC Warfarin Sodium 1 each 1 each PRN DAILY PRN MC SEE COMMENTS Last administered on 07/23/16 10:36; Start 07/22/16 at 18:30 Vitals/I & O Vital Sign - Last 24 Hours 07/22/16 07/22/16 07/22/16 07/22/16 16:42 16:56 18:42 19:40 Temp 98.6 98.6 Pulse 63 63 Resp 16 B/P 108/66 108/66 Pulse Ox 96 O2 Delivery Room Air Room Air Room Air 07/22/16 07/22/16 07/22/16 07/23/16 19:48 20:00 23:00 02:30 Temp 98.6 98.6 98.2 98.6 98.6 98.2 Pulse 67 67 60 Resp 22 20 18 B/P 139/66 139/66 127/57 Pulse Ox 100 100 95 O2 Delivery Room Air Room Air Room Air Room Air 07/23/16 07/23/16 07/23/16 07/23/16 07:00 07:23 08:00 09:14 Temp 98.2 98.2 Pulse 60 60 Resp 16 B/P 142/40 142/40 Pulse Ox 96 O2 Delivery Room Air Room Air Room Air 07/23/16 07/23/16 07/23/16 07/23/16 09:15 09:15 09:16 10:17 Pulse 60 60 60 B/P 142/40 142/40 142/40 O2 Delivery Room Air 07/23/16 11:00 Temp 98.0 98.0 Pulse 61 Resp 16 B/P 148/70 Pulse Ox 97 O2 Delivery Room Air Intake and Output 07/22/16 07/22/16 07/23/16 15:00 23:00 07:00 Intake Total 100 ml 500 ml Output Total 250 ml 1000 ml Balance -150 ml -500 ml AFSHAN SLADE MD Jul 23, 2016 14:48
[2016-07-23 15:00] VITALS: BP 129/64
[2016-07-23 19:35] VITALS: BP 128/51
[2016-07-23] MEDS: ATORVASTATIN CALCIUM 40 MG TABLET. PO SCH (20:58)
[2016-07-23 23:05] VITALS: BP 132/61
[2016-07-23] MEDS: ALBUTEROL SULFATE 2.5 MG/3 ML NEBU. NEB PRN (23:14)
[2016-07-24 03:20] VITALS: BP 111/63
[2016-07-24 05:25] LABS: CALCIUM 8.7 mg/dL (8.5-10.1); CREATININE 1.5 mg/dL (0.6-1.0); GFR 41.2; POTASSIUM 4.5 mmol/L (3.5-5.1)
[2016-07-24 07:00] VITALS: BP 110/68
[2016-07-24] MEDS: ALBUTEROL SULFATE 2.5 MG/3 ML NEBU. NEB PRN (07:07)
[2016-07-24] MEDS: POTASSIUM CHLORIDE 20 MEQ TABLET.ER. PO SCH ×2 (09:03→17:37)
[2016-07-24] MEDS: METFORMIN 1,000 MG TABLET PO SCH (09:03)
[2016-07-24] MEDS: ASPIRIN ENTERIC COATED 81 MG TABLET.DR. PO SCH (09:04)
[2016-07-24] MEDS: FUROSEMIDE 40 MG/4 ML VIAL IVP SCH (09:05)
[2016-07-24] MEDS: GABAPENTIN 100 MG CAPSULE. PO SCH ×3 (09:05→20:42)
[2016-07-24] MEDS: COLESTIPOL HCL 1 GM TABLET PO SCH ×3 (09:21→20:42)
[2016-07-24] MEDS: AMIODARONE HCL 200 MG TABLET PO SCH (09:21)
--- NOTE | 2016-07-24 10:39 | PDOC ---
PROGRESS NOTES Subjective Subjective feels better Objective Objective Vital Signs Date Time Temp Pulse Resp B/P Pulse Ox O2 Delivery O2 Flow Rate FiO2 07/24/16 09:21 60 110/68 07/24/16 07:08 97 Room Air 07/24/16 07:00 98.2 18 98.2 Intake and Output 07/24/16 07:00 Intake Total 1030 ml Output Total 2100 ml Balance -1070 ml Intake Oral 980 ml IV Total 50 ml Output Urine Total 2100 ml Physical Exam Abdomen: Normal bowel sounds Heart: Regular rate Extremities: No clubbing, Other (Trace edema in R LE) General: Alert, Cooperative, No acute distress Lungs: Clear to auscultation, Normal air movement MUSCULOSKELETAL: No deformity Skin: No breakdown Assessment Assessment FINAL IMPRESSION: 1. Acute on chronic systolic heart failure. 2. Dilated cardiomyopathy. 3. An implantable cardioverter defibrillator present, ejection fraction 10%. 4. Diabetes type 2. 5. Hypertension. 6. Hyperlipidemia. 7. Diabetic gastroparesis. PLAN: started on entresto pacemaker check done working ok. iv lasix.change to po today monitor labs dig 3.0, hold for few days.restart onlower dose inr 4.6 hold coumadin,restsrt onlower dose from wednesday. home over the weekend At this time, was admitted to the hospital. The patient was admitted to the hospital. IV Lasix. Cardiology consultation, echocardiogram. ADDENDUM: The patient had a pacemaker battery replaced last year at the [facility] and we will have Cardiology see the patient. Problems: Comment Review of Relevant I have reviewed the following items marquise (where applicable) has been applied. Labs Laboratory Tests Test 07/23/16 12:07 07/23/16 21:02 07/24/16 05:00 07/24/16 07:48 Glucose (Fingerstick) 116mg/dL (70-99) 156mg/dL (70-99) 95mg/dL (70-99) Sodium Level 138mmol/L (136-145) Potassium Level 4.5mmol/L (3.5-5.1) Chloride Level 101mmol/L (98-107) Carbon Dioxide Level 27mmol/L (21-32) Anion Gap 10 (6-14) Blood Urea Nitrogen 44mg/dL (7-20) Creatinine 1.5mg/dL (0.6-1.0) Estimated GFR (Cockcroft-Gault) 41.2 Glucose Level 88mg/dL (70-99) Calcium Level 8.7mg/dL (8.5-10.1) Medications Current Medications Atorvastatin Calcium (Lipitor) 40 mg QHS PO Last administered on 07/23/16 20:58 ; Start 07/23/16 at 21:00 Furosemide (Lasix) 80 mg BID92 PO ; Start 07/24/16 at 14:00 Magnesium Sulfate/ Dextrose (Magnesium Sulfate PREMIX 2GM) 50 ml @ 25 mls/hr 1X ONCE IV Last administered on 07/23/16 14:17; Start 07/23/16 at 14:00; Stop 07/23/16 at 15:59; Status DC Sacubitril/ Valsartan (Entresto 24 Mg-26 Mg) 1 tab BID PO ; Start 07/24/16 at 21 :00 Warfarin Sodium 5 mg 5 mg DAILY16 PO ; Start 07/24/16 at 16:00; Stop 07/24/16 at 16:00; Status DC Vitals/I & O Vital Sign - Last 24 Hours 07/23/16 07/23/16 07/23/16 07/23/16 11:00 15:00 17:21 19:35 Temp 98.0 97.5 97.9 98.0 97.5 97.9 Pulse 61 62 62 60 Resp 16 18 18 B/P 148/70 129/64 129/64 128/51 Pulse Ox 97 95 95 O2 Delivery Room Air Room Air Room Air 07/23/16 07/23/16 07/23/16 07/24/16 20:00 23:05 23:14 03:20 Temp 98.8 97.7 98.8 97.7 Pulse 61 59 Resp 18 16 B/P 132/61 111/63 Pulse Ox 94 94 O2 Delivery Room Air Room Air Room Air Room Air 07/24/16 07/24/16 07/24/16 07:00 07:08 09:21 Temp 98.2 98.2 Pulse 60 60 Resp 18 B/P 110/68 110/68 Pulse Ox 94 97 O2 Delivery Room Air Room Air Intake and Output 07/23/16 07/23/16 07/24/16 15:00 23:00 07:00 Intake Total 850 ml 180 ml Output Total 1000 ml 1100 ml Balance -150 ml -920 ml AFSHAN SLADE MD Jul 24, 2016 10:39
[2016-07-24 10:55] LABS: PROTHROMBIN TIME PATIENT 40.4 SEC (11.7-14.0)
[2016-07-24 11:00] VITALS: BP 113/66
[2016-07-24] MEDS: CARVEDILOL 6.25 MG TABLET PO SCH ×2 (11:01→17:38)
[2016-07-24 11:08] LABS: INR 4.5 (0.8-1.1)
--- NOTE | 2016-07-24 14:18 | PDOC ---
PROGRESS NOTES Subjective Subjective Patient s/e at bedside today, doing well. Reports that she felt short of breath and wheezy overnight and asked for breathing treatment, which resolved her symptoms. She has not had any SOB or wheezes today. She also states that after she was up at sink near bedside today for a sponge bath she felt that her feet and legs got some swelling. Denies any other cardiac complaints. Did not get Entresto yesterday, will start tonight. Objective Objective Vital Signs Date Time Temp Pulse Resp B/P Pulse Ox O2 Delivery O2 Flow Rate FiO2 07/24/16 11:01 113 66/60 07/24/16 11:00 98.4 18 95 Room Air 98.4 Intake and Output 07/24/16 07:00 Intake Total 1030 ml Output Total 2100 ml Balance -1070 ml Intake Oral 980 ml IV Total 50 ml Output Urine Total 2100 ml Physical Exam Physical Exam No significant cardiac changes Heart: Regular rate, Other (Murmur) Extremities: No cyanosis, Other (+1 edema b/l LE) General: Alert, Cooperative, No acute distress Lungs: Clear to auscultation, Normal air movement Assessment Assessment Acute on chronic systolic heart failure Dilated cardiomyopathy with EF of 10% HTN Hyperlipidemia Plan Plan of Care Need to start the Entresto that was ordered yesterday to see how the pt tolerates it. Comment Review of Relevant I have reviewed the following items marquise (where applicable) has been applied. Labs Laboratory Tests Test 07/22/16 15:50 07/22/16 17:50 07/22/16 22:57 07/23/16 04:25 White Blood Count 5.5x10^3/uL (4.0-11.0) 5.3x10^3/uL (4.0-11.0) Red Blood Count 4.53x10^6/uL (3.50-5.40) 4.32x10^6/uL (3.50-5.40) Hemoglobin 11.4g/dL (12.0-15.5) 10.8g/dL (12.0-15.5) Hematocrit 36.2% (36.0-47.0) 33.8% (36.0-47.0) Mean Corpuscular Volume 80fL (79-100) 78fL (79-100) Mean Corpuscular Hemoglobin 25pg (25-35) 25pg (25-35) Mean Corpuscular Hemoglobin Concent 31g/dL (31-37) 32g/dL (31-37) Red Cell Distribution Width 17.2% (11.5-14.5) 17.1% (11.5-14.5) Platelet Count 137x10^3/uL (140-400) 128x10^3/uL (140-400) Neutrophils (%) (Auto) 67% (31-73) 66% (31-73) Lymphocytes (%) (Auto) 18% (24-48) 19% (24-48) Monocytes (%) (Auto) 12% (0-9) 12% (0-9) Eosinophils (%) (Auto) 2% (0-3) 4% (0-3) Basophils (%) (Auto) 1% (0-3) 0% (0-3) Neutrophils # (Auto) 3.7x10^3uL (1.8-7.7) 3.5x10^3uL (1.8-7.7) Lymphocytes # (Auto) 1.0x10^3/uL (1.0-4.8) 1.0x10^3/uL (1.0-4.8) Monocytes # (Auto) 0.6x10^3/uL (0.0-1.1) 0.6x10^3/uL (0.0-1.1) Eosinophils # (Auto) 0.1x10^3/uL (0.0-0.7) 0.2x10^3/uL (0.0-0.7) Basophils # (Auto) 0.0x10^3/uL (0.0-0.2) 0.0x10^3/uL (0.0-0.2) Sodium Level 141mmol/L (136-145) 141mmol/L (136-145) Potassium Level 4.3mmol/L (3.5-5.1) 4.5mmol/L (3.5-5.1) Chloride Level 104mmol/L (98-107) 105mmol/L (98-107) Carbon Dioxide Level 29mmol/L (21-32) 26mmol/L (21-32) Anion Gap 8 (6-14) 10 (6-14) Blood Urea Nitrogen 45mg/dL (7-20) 45mg/dL (7-20) Creatinine 1.7mg/dL (0.6-1.0) 1.5mg/dL (0.6-1.0) Estimated GFR (Cockcroft-Gault) 35.6 41.2 Glucose Level 87mg/dL (70-99) 90mg/dL (70-99) Calcium Level 8.9mg/dL (8.5-10.1) 8.7mg/dL (8.5-10.1) AR-Uin-I-Type Natriuretic Peptide 02683nt/mL (0-124) Prothrombin Time 40.8SEC (11.7-14.0) 41.8SEC (11.7-14.0) Prothromb Time International Ratio 4.6 (0.8-1.1) 4.7 (0.8-1.1) Glucose (Fingerstick) 97mg/dL (70-99) BUN/Creatinine Ratio 30 (6-20) Hemoglobin A1c 5.9% (4.8-5.6) Magnesium Level 1.7mg/dL (1.8-2.4) Total Bilirubin 0.5mg/dL (0.2-1.0) Aspartate Amino Transf (AST/SGOT) 16U/L (15-37) Alanine Aminotransferase (ALT/SGPT) 14U/L (14-59) Alkaline Phosphatase 122U/L (46-116) Total Protein 6.2g/dL (6.4-8.2) Albumin 3.2g/dL (3.4-5.0) Albumin/Globulin Ratio 1.1 (1.0-1.7) Triglycerides Level 140mg/dL (0-150) Cholesterol Level 93mg/dL (0-200) LDL Cholesterol, Calculated 40mg/dL (0-100) VLDL Cholesterol, Calculated 28mg/dL (0-40) HDL Cholesterol 25mg/dL (40-60) Cholesterol/HDL Ratio 3.7 Thyroid Stimulating Hormone (TSH) 2.525uIU/mL (0.358-3.74) Digoxin Level 3.1ng/mL (0.9-2.0) Digoxin Last Dose Date 07/22/16 Digoxin Last Dose Time 0900 Test 07/23/16 09:13 07/23/16 12:07 07/23/16 21:02 07/24/16 05:00 Glucose (Fingerstick) 91mg/dL (70-99) 116mg/dL (70-99) 156mg/dL (70-99) Sodium Level 138mmol/L (136-145) Potassium Level 4.5mmol/L (3.5-5.1) Chloride Level 101mmol/L (98-107) Carbon Dioxide Level 27mmol/L (21-32) Anion Gap 10 (6-14) Blood Urea Nitrogen 44mg/dL (7-20) Creatinine 1.5mg/dL (0.6-1.0) Estimated GFR (Cockcroft-Gault) 41.2 Glucose Level 88mg/dL (70-99) Calcium Level 8.7mg/dL (8.5-10.1) Test 07/24/16 07:48 07/24/16 10:20 Glucose (Fingerstick) 95mg/dL (70-99) Prothrombin Time 40.4SEC (11.7-14.0) Prothromb Time International Ratio 4.5 (0.8-1.1) Laboratory Tests Test 07/23/16 21:02 07/24/16 05:00 07/24/16 07:48 07/24/16 10:20 Glucose (Fingerstick) 156mg/dL (70-99) 95mg/dL (70-99) Sodium Level 138mmol/L (136-145) Potassium Level 4.5mmol/L (3.5-5.1) Chloride Level 101mmol/L (98-107) Carbon Dioxide Level 27mmol/L (21-32) Anion Gap 10 (6-14) Blood Urea Nitrogen 44mg/dL (7-20) Creatinine 1.5mg/dL (0.6-1.0) Estimated GFR (Cockcroft-Gault) 41.2 Glucose Level 88mg/dL (70-99) Calcium Level 8.7mg/dL (8.5-10.1) Prothrombin Time 40.4SEC (11.7-14.0) Prothromb Time International Ratio 4.5 (0.8-1.1) Medications Current Medications Furosemide (Lasix) 40 mg BID92 IVP ; Start 07/23/16 at 09:00; Stop 07/23/16 at 09: 00; Status DC Furosemide (Lasix) 40 mg 1X ONCE IVP Last administered on 07/22/16 15:30; Start 07/22/16 at 15:30; Stop 07/22/16 at 15:38; Status DC Albuterol/ Ipratropium (Duoneb) 3 ml RTQID NEB Last administered on 07/23/16 07 :23; Start 07/22/16 at 16:00; Stop 07/23/16 at 07:40; Status DC Albuterol Sulfate (Ventolin Neb Soln) 2.5 mg PRN Q4HRS PRN NEB SOA Last administered on 07/24/16 07:07; Start 07/22/16 at 15:45 Dextrose 12.5 gm PRN Q15MIN PRN IV SEE COMMENTS; Start 07/22/16 at 15:45 Sodium Chloride (Normal Saline Flush) 3 ml PRN DAILY PRN IV AFTER MEDS AND BLOOD DRAWS; Start 07/22/16 at 15:45 Amiodarone HCl (Cordarone) 200 mg DAILY PO Last administered on 07/24/16 09:21 ; Start 07/23/16 at 09:00 Aspirin (Ecotrin) 81 mg DAILY PO Last administered on 07/24/16 09:04; Start at 09:00 Atorvastatin Calcium (Lipitor) 40 mg QHS PO Last administered on 07/23/16 20:58 ; Start 07/23/16 at 21:00 Carvedilol (Coreg) 6.25 mg BIDWMEALS PO Last administered on 07/24/16 11:01; Start 07/22/16 at 18:30 Colestipol HCl (Colestid) 1 gm TID PO Last administered on 07/24/16 09:21; Start 07/22/16 at 21:00 Gabapentin (Neurontin) 200 mg TID PO Last administered on 07/24/16 09:05; Start 07/22/16 at 21:00 Lisinopril (Prinivil) 5 mg DAILY PO Last administered on 07/23/16 09:15; Start 07/23/16 at 09:00; Stop 07/23/16 at 14:22; Status DC Metformin HCl (Glucophage) 1,000 mg BIDWMEALS PO Last administered on 09:03; Start 07/22/16 at 18:30; Stop 07/24/16 at 10:41; Status DC Metoclopramide HCl (Reglan) 5 mg PRN BID PRN PO NAUSEA Last administered on 09:08; Start 07/22/16 at 17:30 Warfarin Sodium (Coumadin) 5 mg DAILY16 PO ; Start 07/24/16 at 16:00; Stop 07/24 at 16:00; Status DC Digoxin (Lanoxin) 250 mcg DAILY PO Last administered on 07/23/16 09:15; Start 07/23/16 at 09:00; Stop 07/23/16 at 14:44; Status DC Potassium Chloride (Klor-Con) 20 meq BIDWMEALS PO Last administered on 09:03; Start 07/22/16 at 18:30 Furosemide (Lasix) 80 mg Q12HR IVP Last administered on 07/24/16 09:05; Start 07/23/16 at 09:00; Stop 07/24/16 at 09:57; Status DC Warfarin Sodium 1 each 1 each PRN DAILY PRN MC SEE COMMENTS Last administered on 07/24/16 12:40; Start 07/22/16 at 18:30 Magnesium Sulfate/ Dextrose (Magnesium Sulfate PREMIX 2GM) 50 ml @ 25 mls/hr 1X ONCE IV Last administered on 07/23/16 14:17; Start 07/23/16 at 14:00; Stop 07/23/16 at 15:59; Status DC Sacubitril/ Valsartan (Entresto 24 Mg-26 Mg) 1 tab BID PO ; Start 07/24/16 at 21 :00 Furosemide (Lasix) 80 mg BID92 PO ; Start 07/24/16 at 14:00 Warfarin Sodium (Coumadin - No Dose Today) 1 each 1X WARF ONCE MC ; Start 07/24 at 16:00; Stop 07/24/16 at 16:01 Warfarin Sodium (Coumadin - No Dose Today) 1 each 1X WARF ONCE MC ; Start 07/25 at 16:00; Stop 07/25/16 at 16:01 Warfarin Sodium (Coumadin - No Dose Today) 1 each 1X WARF ONCE MC ; Start 07/26 at 16:00; Stop 07/26/16 at 16:01 Warfarin Sodium (Coumadin) 2.5 mg DAILY16 PO ; Start 07/27/16 at 16:00 Active Scripts Active Prinivil (Lisinopril) 5 Mg Tablet 5 Mg PO DAILY Reported Tresiba Flextouch U-100 (Insulin Degludec) 100 Unit/1 Ml Insuln.pen 100 Unit SQ PRN QHS PRN Reglan (Metoclopramide Hcl) 10 Mg Tablet 5 Mg PO PRN BID PRN Atorvastatin Calcium 40 Mg Tablet 1 Tab PO DAILY Colestid (Colestipol Hcl) 1 Gm Tablet 1 Gm PO TID Pacerone (Amiodarone Hcl) 200 Mg Tablet 200 Mg PO DAILY Warfarin Sodium 5 Mg Tablet 1 Tab PO DAILY Lasix (Furosemide) 80 Mg Tablet 1 Tab PO BID Digoxin 0.25 Mg/5 Ml Solution 0.25 Mg PO DAILY Gabapentin 100 Mg Capsule 2 Cap PO TID Aspir 81 (Aspirin) 81 Mg Tablet.dr 1 Tab PO DAILY Coreg (Carvedilol) 6.25 Mg Tablet 1 Tab PO BID Metformin Hcl 1,000 Mg Tablet 1,000 Mg PO BID K-Tab ER (Potassium Chloride) 20 Meq Tablet.er 20 Meq PO BID Vitals/I & O Vital Sign - Last 24 Hours 07/23/16 07/23/16 07/23/16 07/23/16 15:00 17:21 19:35 20:00 Temp 97.5 97.9 97.5 97.9 Pulse 62 62 60 Resp 18 18 B/P 129/64 129/64 128/51 Pulse Ox 95 95 O2 Delivery Room Air Room Air Room Air 07/23/16 07/23/16 07/24/16 07/24/16 23:05 23:14 03:20 07:00 Temp 98.8 97.7 98.2 98.8 97.7 98.2 Pulse 61 59 60 Resp 18 16 18 B/P 132/61 111/63 110/68 Pulse Ox 94 94 94 O2 Delivery Room Air Room Air Room Air Room Air 07/24/16 07/24/16 07/24/16 07/24/16 07:08 07:45 09:21 11:00 Temp 98.4 98.4 Pulse 60 60 Resp 18 B/P 110/68 113/66 Pulse Ox 97 95 O2 Delivery Room Air Room Air Room Air 07/24/16 11:01 Pulse 113 B/P 66/60 Intake and Output 07/23/16 07/23/16 07/24/16 15:00 23:00 07:00 Intake Total 850 ml 180 ml Output Total 1000 ml 1100 ml Balance -150 ml -920 ml HEATHER CHERRY MD Jul 24, 2016 14:18
[2016-07-24 15:00] VITALS: BP 113/55
[2016-07-24] MEDS: FUROSEMIDE 80 MG TABLET PO SCH (15:02)
[2016-07-24] MEDS ORDERED: WARFARIN 5 MG TABLET. PO SCH (16:00)
[2016-07-24 19:38] VITALS: BP 113/71
[2016-07-24] MEDS: ATORVASTATIN CALCIUM 40 MG TABLET. PO SCH (20:42)
[2016-07-24] MEDS: SACUBITRIL/VALSARTAN 24/26MG TABLET. PO SCH (20:42)
[2016-07-24 23:32] VITALS: BP 115/69
[2016-07-25 03:21] VITALS: BP 115/67
[2016-07-25 06:17] LABS: CALCIUM 8.7 mg/dL (8.5-10.1); CREATININE 1.6 mg/dL (0.6-1.0); GFR 38.2; POTASSIUM 4.9 mmol/L (3.5-5.1)
--- NOTE | 2016-07-25 07:08 | PDOC ---
LAWSON MONTILLA STEP FINISHER 07/25/16 0708: IM PROGRESS NOTES- Subjective Subjective breathing okay Objective Objective alert appropriate Vitals Vital Signs Date Time Temp Pulse Resp B/P Pulse Ox O2 Delivery O2 Flow Rate FiO2 07/25/16 03:21 98.1 60 18 115/67 95 Room Air 98.1 Input & Output Intake and Output 07/25/16 07:00 Intake Total 1000 ml Output Total 2250 ml Balance -1250 ml Intake Oral 1000 ml Output Urine Total 2250 ml Physical Exam Physical Exam General appearance - alert, chronically ill appearing, and in no distress Mental Status - alert, oriented to person, place, and time, affect appropriate to mood Head - normal Chest - clear to auscultation, no wheezes, rales or rhonchi, symmetric air entry Heart - S1 and S2 normal Abdomen - soft, nontender, nondistended, no masses or organomegaly Neurological - no acute focal neurological deficits Musculoskeletal - no muscular tenderness noted Extremities - no pedal edema Skin - warm and dry Labs Laboratory Tests Test 07/23/16 09:13 07/23/16 12:07 07/23/16 21:02 07/24/16 05:00 Glucose (Fingerstick) 91mg/dL (70-99) 116mg/dL (70-99) 156mg/dL (70-99) Sodium Level 138mmol/L (136-145) Potassium Level 4.5mmol/L (3.5-5.1) Chloride Level 101mmol/L (98-107) Carbon Dioxide Level 27mmol/L (21-32) Anion Gap 10 (6-14) Blood Urea Nitrogen 44mg/dL (7-20) Creatinine 1.5mg/dL (0.6-1.0) Estimated GFR (Cockcroft-Gault) 41.2 Glucose Level 88mg/dL (70-99) Calcium Level 8.7mg/dL (8.5-10.1) Test 07/24/16 07:48 07/24/16 10:20 07/24/16 16:57 07/24/16 20:34 Glucose (Fingerstick) 95mg/dL (70-99) 101mg/dL (70-99) 148mg/dL (70-99) Prothrombin Time 40.4SEC (11.7-14.0) Prothromb Time International Ratio 4.5 (0.8-1.1) Test 07/25/16 05:00 Sodium Level 138mmol/L (136-145) Potassium Level 4.9mmol/L (3.5-5.1) Chloride Level 102mmol/L (98-107) Carbon Dioxide Level 29mmol/L (21-32) Anion Gap 7 (6-14) Blood Urea Nitrogen 48mg/dL (7-20) Creatinine 1.6mg/dL (0.6-1.0) Estimated GFR (Cockcroft-Gault) 38.2 Glucose Level 104mg/dL (70-99) Calcium Level 8.7mg/dL (8.5-10.1) Laboratory Tests Test 07/24/16 07:48 07/24/16 10:20 07/24/16 16:57 07/24/16 20:34 Glucose (Fingerstick) 95mg/dL (70-99) 101mg/dL (70-99) 148mg/dL (70-99) Prothrombin Time 40.4SEC (11.7-14.0) Prothromb Time International Ratio 4.5 (0.8-1.1) Test 07/25/16 05:00 Sodium Level 138mmol/L (136-145) Potassium Level 4.9mmol/L (3.5-5.1) Chloride Level 102mmol/L (98-107) Carbon Dioxide Level 29mmol/L (21-32) Anion Gap 7 (6-14) Blood Urea Nitrogen 48mg/dL (7-20) Creatinine 1.6mg/dL (0.6-1.0) Estimated GFR (Cockcroft-Gault) 38.2 Glucose Level 104mg/dL (70-99) Calcium Level 8.7mg/dL (8.5-10.1) Meds Current Medications Furosemide (Lasix) 80 mg BID92 PO Last administered on 07/24/16 15:02; Start 07/24/16 at 14:00 Sacubitril/ Valsartan (Entresto 24 Mg-26 Mg) 1 tab BID PO Last administered on 07/24/16 20:42; Start 07/24/16 at 21:00 Warfarin Sodium (Coumadin - No Dose Today) 1 each 1X WARF ONCE MC ; Start 07/24 at 16:00; Stop 07/24/16 at 16:01; Status DC Warfarin Sodium (Coumadin - No Dose Today) 1 each 1X WARF ONCE MC ; Start 07/25 at 16:00; Stop 07/25/16 at 16:01 Warfarin Sodium (Coumadin - No Dose Today) 1 each 1X WARF ONCE MC ; Start 07/26 at 16:00; Stop 07/26/16 at 16:01 Warfarin Sodium (Coumadin) 2.5 mg DAILY16 PO ; Start 07/27/16 at 16:00 Warfarin Sodium (Coumadin) 5 mg DAILY16 PO ; Start 07/24/16 at 16:00; Stop 07/24 at 16:00; Status DC Assessment Assessment FINAL IMPRESSION: 1. Acute on chronic systolic heart failure. 2. Dilated cardiomyopathy. 3. An implantable cardioverter defibrillator present, ejection fraction 10%. 4. Diabetes type 2. 5. Hypertension. 6. Hyperlipidemia. 7. Diabetic gastroparesis. PLAN: ICM systolic CHF-stable coagulopathy - INR 4.7 07/24 4.5 07/25 continue to hold coumadin CKD III BUN 48 Cr1.6 stable DM BS 88-148 Discharge initiated. Entresto samples provided for discharge PLAN: started on entresto pacemaker check done working ok. iv lasix.change to po today monitor labs dig 3.0, hold for few days.restart onlower dose inr 4.6 hold coumadin,restsrt onlower dose from wednesday. home over the weekend At this time, was admitted to the hospital. The patient was admitted to the hospital. IV Lasix. Cardiology consultation, echocardiogram. ADDENDUM: The patient had a pacemaker battery replaced last year at the [facility] and we will have Cardiology see the patient. Plan Plan For more details regarding further plans, please refer to the orders. MERON DELATORRE MD 07/25/16 1134: PROGRESS NOTES- Assessment Assessment INR 4.5.Hold coumadin.check Digoxin level- had Digoxin toxicity. The patient was seen and examined by me. Chart reviewed and plan of care formulated. Discussed with, reviewed and agree with GUIDE CHANGER's notes, plan of care and orders with modifications as necessary. For more details regarding further plans, please refer to the orders. LAWSON MONTILLA APRN Jul 25, 2016 07:08 MERON DELATORRE MD Jul 25, 2016 11:34
--- NOTE | 2016-07-25 07:09 | DISCH ---
DISCHARGE CONDITION ON DISCHARGE: Stable HOME HEALTH: Yes PT. HAS FUNCTIONAL LIMITATIONS: Yes FACE TO FACE ENCOUNTER: Yes POST DISCHARGE ORDERS ACTIVITY ORDERS: Activity as tolerated WEIGHT BEARING STATUS: Full weight bearing DIET AFTER DISCHARGE: Cardiac CHECKS AFTER DISCHARGE CHECKS AFTER DISCHARGE: Check blood sugar, ac/hs, Weigh Yourself Daily FOLLOW-UP PHYSICIAN FOLLOW-UP: Dr. Garcia per his instruction LAWSON MONTILLA APRN Jul 25, 2016 07:09
[2016-07-25] MEDS ORDERED: WARF2.5T PO (07:12)
[2016-07-25] MEDS ORDERED: SACU1TAB PO (07:13)
--- NOTE | 2016-07-25 07:16 | DISCH ---
DISCHARGE WITH HOME HEALTH DISCHARGE INFORMATION: Condition on Discharge: Stable HOME HEALTH: Face to Face: I certify this patient is under my care and that I, or a nurse practitioner or physician's library clerical assistant working with me, had a face to face encounter that meets the physician face to face encounter requirements with this patient on 07/25/16. Medical Condition(s): CHF Prison For: Assess/Skilled Observatio Physical Therapy For: Evalulation/Treatment Occupational Therapy For: Evaluation/Treatment Patient meets Homebound Statu: Limited distance walking FOLLOW-UP: Follow up with: Dr. Garcia per his instruction Follow Up With: Dr. Finnegan per his instructions TREATMENT/EQUIPMENT ORDERS Adaptive Equipment Issued: None CERTIFICATION STATEMENT: Certification Statement: Certification Statement: Based on the above finding, I certify that this patient is confined to the home and needs intermittent jail care, physical therapy and/or speech therapy, or continues to need occupational therapy.~ This patient is under my care, and I have initiated the establishment of the plan of care.~ This patient will be followed by myself or a community physician who will periodically review the plan of care. LAWSON MONTILLA APRN Jul 25, 2016 07:16
[2016-07-25 07:46] VITALS: BP 120/69
[2016-07-25] MEDS: GABAPENTIN 100 MG CAPSULE. PO SCH ×3 (09:08→21:20)
[2016-07-25] MEDS: ASPIRIN ENTERIC COATED 81 MG TABLET.DR. PO SCH (09:08)
[2016-07-25] MEDS: FUROSEMIDE 80 MG TABLET PO SCH ×2 (09:08→14:34)
[2016-07-25] MEDS: SACUBITRIL/VALSARTAN 24/26MG TABLET. PO SCH ×2 (09:08→21:21)
[2016-07-25] MEDS: POTASSIUM CHLORIDE 20 MEQ TABLET.ER. PO SCH ×2 (09:09→17:36)
[2016-07-25] MEDS: AMIODARONE HCL 200 MG TABLET PO SCH (09:09)
[2016-07-25] MEDS: CARVEDILOL 6.25 MG TABLET PO SCH ×2 (09:09→17:38)
[2016-07-25] MEDS: COLESTIPOL HCL 1 GM TABLET PO SCH ×3 (10:41→21:20)
[2016-07-25] MEDS ORDERED: BISACODYL 10 MG SUPP.RECT PR PRN (11:00)
[2016-07-25 11:23] VITALS: BP 112/66
[2016-07-25 12:29] LABS: INR 3.3 (0.8-1.1)
--- NOTE | 2016-07-25 13:41 | PDOC ---
PROGRESS NOTES Subjective Subjective No new cardiac complaints. She feels better and no shortness of breath at this time. Objective Objective Vital Signs Date Time Temp Pulse Resp B/P Pulse Ox O2 Delivery O2 Flow Rate FiO2 07/25/16 11:23 97.9 61 19 112/66 91 Room Air 97.9 Intake and Output 07/25/16 07:00 Intake Total 1000 ml Output Total 2250 ml Balance -1250 ml Intake Oral 1000 ml Output Urine Total 2250 ml Physical Exam Physical Exam Neck 1 cm JVD. Lungs moving air better no Rales. Heart no changes. Extremities less edema. Assessment Assessment The patient's CHF seems to be improving. The pacemaker is functioning normally. She started on the Entresto yesterday and seems to be doing okay with that. If she is stable she may be able to go home in the morning. I would like to see her in the office in about 2 weeks. Comment Review of Relevant I have reviewed the following items marquise (where applicable) has been applied. Labs Laboratory Tests Test 07/23/16 21:02 07/24/16 05:00 07/24/16 07:48 07/24/16 10:20 Glucose (Fingerstick) 156mg/dL (70-99) 95mg/dL (70-99) Sodium Level 138mmol/L (136-145) Potassium Level 4.5mmol/L (3.5-5.1) Chloride Level 101mmol/L (98-107) Carbon Dioxide Level 27mmol/L (21-32) Anion Gap 10 (6-14) Blood Urea Nitrogen 44mg/dL (7-20) Creatinine 1.5mg/dL (0.6-1.0) Estimated GFR (Cockcroft-Gault) 41.2 Glucose Level 88mg/dL (70-99) Calcium Level 8.7mg/dL (8.5-10.1) Prothrombin Time 40.4SEC (11.7-14.0) Prothromb Time International Ratio 4.5 (0.8-1.1) Test 07/24/16 11:19 07/24/16 16:57 07/24/16 20:34 07/25/16 05:00 Glucose (Fingerstick) 115mg/dL (70-99) 101mg/dL (70-99) 148mg/dL (70-99) Sodium Level 138mmol/L (136-145) Potassium Level 4.9mmol/L (3.5-5.1) Chloride Level 102mmol/L (98-107) Carbon Dioxide Level 29mmol/L (21-32) Anion Gap 7 (6-14) Blood Urea Nitrogen 48mg/dL (7-20) Creatinine 1.6mg/dL (0.6-1.0) Estimated GFR (Cockcroft-Gault) 38.2 Glucose Level 104mg/dL (70-99) Calcium Level 8.7mg/dL (8.5-10.1) Test 07/25/16 07:50 07/25/16 11:54 07/25/16 11:56 Glucose (Fingerstick) 87mg/dL (70-99) 119mg/dL (70-99) Prothrombin Time 32.0SEC (11.7-14.0) Prothromb Time International Ratio 3.3 (0.8-1.1) Laboratory Tests Test 07/24/16 16:57 07/24/16 20:34 07/25/16 05:00 07/25/16 07:50 Glucose (Fingerstick) 101mg/dL (70-99) 148mg/dL (70-99) 87mg/dL (70-99) Sodium Level 138mmol/L (136-145) Potassium Level 4.9mmol/L (3.5-5.1) Chloride Level 102mmol/L (98-107) Carbon Dioxide Level 29mmol/L (21-32) Anion Gap 7 (6-14) Blood Urea Nitrogen 48mg/dL (7-20) Creatinine 1.6mg/dL (0.6-1.0) Estimated GFR (Cockcroft-Gault) 38.2 Glucose Level 104mg/dL (70-99) Calcium Level 8.7mg/dL (8.5-10.1) Test 07/25/16 11:54 07/25/16 11:56 Glucose (Fingerstick) 119mg/dL (70-99) Prothrombin Time 32.0SEC (11.7-14.0) Prothromb Time International Ratio 3.3 (0.8-1.1) Medications Current Medications Furosemide (Lasix) 40 mg BID92 IVP ; Start 07/23/16 at 09:00; Stop 07/23/16 at 09: 00; Status DC Furosemide (Lasix) 40 mg 1X ONCE IVP Last administered on 07/22/16 15:30; Start 07/22/16 at 15:30; Stop 07/22/16 at 15:38; Status DC Albuterol/ Ipratropium (Duoneb) 3 ml RTQID NEB Last administered on 07/23/16 07 :23; Start 07/22/16 at 16:00; Stop 07/23/16 at 07:40; Status DC Albuterol Sulfate (Ventolin Neb Soln) 2.5 mg PRN Q4HRS PRN NEB SOA Last administered on 07/24/16 07:07; Start 07/22/16 at 15:45 Dextrose 12.5 gm PRN Q15MIN PRN IV SEE COMMENTS; Start 07/22/16 at 15:45 Sodium Chloride (Normal Saline Flush) 3 ml PRN DAILY PRN IV AFTER MEDS AND BLOOD DRAWS; Start 07/22/16 at 15:45 Amiodarone HCl (Cordarone) 200 mg DAILY PO Last administered on 07/25/16 09:09 ; Start 07/23/16 at 09:00 Aspirin (Ecotrin) 81 mg DAILY PO Last administered on 07/25/16 09:08; Start at 09:00 Atorvastatin Calcium (Lipitor) 40 mg QHS PO Last administered on 07/24/16 20: 42; Start 07/23/16 at 21:00 Carvedilol (Coreg) 6.25 mg BIDWMEALS PO Last administered on 07/25/16 09:09; Start 07/22/16 at 18:30 Colestipol HCl (Colestid) 1 gm TID PO Last administered on 07/25/16 10:41; Start 07/22/16 at 21:00 Gabapentin (Neurontin) 200 mg TID PO Last administered on 07/25/16 09:08; Start 07/22/16 at 21:00 Lisinopril (Prinivil) 5 mg DAILY PO Last administered on 07/23/16 09:15; Start 07/23/16 at 09:00; Stop 07/23/16 at 14:22; Status DC Metformin HCl (Glucophage) 1,000 mg BIDWMEALS PO Last administered on 09:03; Start 07/22/16 at 18:30; Stop 07/24/16 at 10:41; Status DC Metoclopramide HCl (Reglan) 5 mg PRN BID PRN PO NAUSEA Last administered on 09:08; Start 07/22/16 at 17:30 Warfarin Sodium (Coumadin) 5 mg DAILY16 PO ; Start 07/24/16 at 16:00; Stop 07/24 at 16:00; Status DC Digoxin (Lanoxin) 250 mcg DAILY PO Last administered on 07/23/16 09:15; Start 07/23/16 at 09:00; Stop 07/23/16 at 14:44; Status DC Potassium Chloride (Klor-Con) 20 meq BIDWMEALS PO Last administered on 09:09; Start 07/22/16 at 18:30 Furosemide (Lasix) 80 mg Q12HR IVP Last administered on 07/24/16 09:05; Start 07/23/16 at 09:00; Stop 07/24/16 at 09:57; Status DC Warfarin Sodium 1 each 1 each PRN DAILY PRN MC SEE COMMENTS Last administered on 07/25/16 12:31; Start 07/22/16 at 18:30 Magnesium Sulfate/ Dextrose (Magnesium Sulfate PREMIX 2GM) 50 ml @ 25 mls/hr 1X ONCE IV Last administered on 07/23/16 14:17; Start 07/23/16 at 14:00; Stop 07/23/16 at 15:59; Status DC Sacubitril/ Valsartan (Entresto 24 Mg-26 Mg) 1 tab BID PO Last administered on 07/25/16 09:08; Start 07/24/16 at 21:00 Furosemide (Lasix) 80 mg BID92 PO Last administered on 07/25/16 09:08; Start 07/24/16 at 14:00 Warfarin Sodium (Coumadin - No Dose Today) 1 each 1X WARF ONCE MC ; Start 07/24 at 16:00; Stop 07/24/16 at 16:01; Status DC Warfarin Sodium (Coumadin - No Dose Today) 1 each 1X WARF ONCE MC ; Start 07/25 at 16:00; Stop 07/25/16 at 16:01 Warfarin Sodium (Coumadin - No Dose Today) 1 each 1X WARF ONCE MC ; Start 07/26 at 16:00; Stop 07/26/16 at 16:01 Warfarin Sodium (Coumadin) 2.5 mg DAILY16 PO ; Start 07/27/16 at 16:00 Bisacodyl (Dulcolax Supp) 10 mg PRN DAILY PRN AL CONSTIPATION; Start 07/25/16 at 11:00 Active Scripts Active Entresto 24 mg-26 mg Tablet (Sacubitril/Valsartan) 1 Each Tablet 1 Tab PO BID Coumadin (Warfarin Sodium) 2.5 Mg Tablet 2.5 Mg PO DAILY16 Reported Reglan (Metoclopramide Hcl) 10 Mg Tablet 5 Mg PO PRN BID PRN Atorvastatin Calcium 40 Mg Tablet 1 Tab PO DAILY Colestid (Colestipol Hcl) 1 Gm Tablet 1 Gm PO TID Pacerone (Amiodarone Hcl) 200 Mg Tablet 200 Mg PO DAILY Lasix (Furosemide) 80 Mg Tablet 1 Tab PO BID Gabapentin 100 Mg Capsule 2 Cap PO TID Aspir 81 (Aspirin) 81 Mg Tablet.dr 1 Tab PO DAILY Coreg (Carvedilol) 6.25 Mg Tablet 1 Tab PO BID K-Tab ER (Potassium Chloride) 20 Meq Tablet.er 20 Meq PO BID Vitals/I & O Vital Sign - Last 24 Hours 07/24/16 07/24/16 07/24/16 07/24/16 15:00 17:38 19:38 20:00 Temp 98.0 98.4 98.0 98.4 Pulse 63 63 59 Resp 18 18 B/P 113/55 113/55 113/71 Pulse Ox 95 95 O2 Delivery Room Air Room Air Room Air 07/24/16 07/24/16 07/25/16 07/25/16 20:42 23:32 03:21 07:46 Temp 98.7 98.1 97.9 98.7 98.1 97.9 Pulse 63 60 60 60 Resp 20 18 18 B/P 113/55 115/69 115/67 120/69 Pulse Ox 95 95 91 O2 Delivery Room Air Room Air Room Air 07/25/16 07/25/16 07/25/16 07/25/16 08:00 09:08 09:09 09:09 Pulse 60 60 60 B/P 120/69 120/69 120/65 O2 Delivery Room Air 07/25/16 11:23 Temp 97.9 97.9 Pulse 61 Resp 19 B/P 112/66 Pulse Ox 91 O2 Delivery Room Air Intake and Output 07/24/16 07/24/16 07/25/16 15:00 23:00 07:00 Intake Total 500 ml 500 ml Output Total 1400 ml 850 ml Balance -900 ml -350 ml HEATHER CHERRY MD Jul 25, 2016 13:40
[2016-07-25 14:18] VITALS: BP 111/67
[2016-07-25] MEDS: ALBUTEROL SULFATE 2.5 MG/3 ML NEBU. NEB PRN (14:39)
[2016-07-25 19:20] VITALS: BP 108/64
[2016-07-25] MEDS: ATORVASTATIN CALCIUM 40 MG TABLET. PO SCH (21:20)
[2016-07-25 23:20] VITALS: BP 99/62
[2016-07-26 03:48] VITALS: BP 107/61
[2016-07-26 06:43] LABS: BASO % 1 % (0-3); EOS % 4 % (0-3); HEMATOCRIT 33.6 % (36.0-47.0); HEMOGLOBIN 10.6 g/dL (12.0-15.5); LYMPH # 1.3 x10^3/uL (1.0-4.8); LYMPH % 23 % (24-48); MEAN CORPUSCULAR HEMOGLOBIN 25 pg (25-35); MEAN CORPUSCULAR HGB CONC 32 g/dL (31-37); MEAN CORPUSCULAR VOLUME 79 fL (79-100); MONO % 13 % (0-9); NEUT % 61 % (31-73); PLATELET COUNT 129 x10^3/uL (140-400); RED BLOOD COUNT 4.27 x10^6/uL (3.50-5.40); RED CELL DISTRIBUTION WIDTH 17.4 % (11.5-14.5); WHITE BLOOD COUNT 5.8 x10^3/uL (4.0-11.0)
[2016-07-26 06:47] LABS: CALCIUM 8.6 mg/dL (8.5-10.1); CREATININE 1.7 mg/dL (0.6-1.0); GFR 35.6; MAGNESIUM 2.2 mg/dL (1.8-2.4); POTASSIUM 4.7 mmol/L (3.5-5.1)
[2016-07-26 07:55] VITALS: BP 116/64
[2016-07-26] MEDS: FUROSEMIDE 80 MG TABLET PO SCH ×2 (08:22→14:30)
[2016-07-26] MEDS: AMIODARONE HCL 200 MG TABLET PO SCH (08:22)
[2016-07-26] MEDS: CARVEDILOL 6.25 MG TABLET PO SCH (08:22)
[2016-07-26] MEDS: GABAPENTIN 100 MG CAPSULE. PO SCH ×2 (08:23→14:30)
[2016-07-26] MEDS: ASPIRIN ENTERIC COATED 81 MG TABLET.DR. PO SCH (08:23)
[2016-07-26] MEDS: SACUBITRIL/VALSARTAN 24/26MG TABLET. PO SCH (08:23)
[2016-07-26] MEDS: POTASSIUM CHLORIDE 20 MEQ TABLET.ER. PO SCH (08:23)
[2016-07-26 09:45] LABS: INR 2.1 (0.8-1.1)
[2016-07-26] MEDS: COLESTIPOL HCL 1 GM TABLET PO SCH ×2 (09:46→14:30)
--- NOTE | 2016-07-26 11:11 | PDOC ---
IM PROGRESS NOTES- Subjective Subjective breathing okay Objective Objective alert appropriate Vitals Vital Signs Date Time Temp Pulse Resp B/P Pulse Ox O2 Delivery O2 Flow Rate FiO2 07/26/16 08:23 60 116/64 07/26/16 08:00 Room Air 2.0 07/26/16 07:55 98.0 18 99 98.0 Input & Output Intake and Output 07/26/16 07:00 Intake Total 1610 ml Output Total 2350 ml Balance -740 ml Intake Oral 1610 ml Output Urine Total 2350 ml # Voids 2 Physical Exam Physical Exam General appearance - alert, chronically ill appearing, and in no distress Mental Status - alert, oriented to person, place, and time, affect appropriate to mood Head - normal Chest - clear to auscultation, no wheezes, rales or rhonchi, symmetric air entry Heart - S1 and S2 normal Abdomen - soft, nontender, nondistended, no masses or organomegaly Neurological - no acute focal neurological deficits Musculoskeletal - no muscular tenderness noted Extremities - no pedal edema Skin - warm and dry Labs Laboratory Tests Test 07/24/16 11:19 07/24/16 16:57 07/24/16 20:34 07/25/16 05:00 Glucose (Fingerstick) 115mg/dL (70-99) 101mg/dL (70-99) 148mg/dL (70-99) Sodium Level 138mmol/L (136-145) Potassium Level 4.9mmol/L (3.5-5.1) Chloride Level 102mmol/L (98-107) Carbon Dioxide Level 29mmol/L (21-32) Anion Gap 7 (6-14) Blood Urea Nitrogen 48mg/dL (7-20) Creatinine 1.6mg/dL (0.6-1.0) Estimated GFR (Cockcroft-Gault) 38.2 Glucose Level 104mg/dL (70-99) Calcium Level 8.7mg/dL (8.5-10.1) Test 07/25/16 07:50 07/25/16 11:54 07/25/16 11:56 07/25/16 16:27 Glucose (Fingerstick) 87mg/dL (70-99) 119mg/dL (70-99) 130mg/dL (70-99) Prothrombin Time 32.0SEC (11.7-14.0) Prothromb Time International Ratio 3.3 (0.8-1.1) Test 07/25/16 20:58 07/26/16 05:00 07/26/16 07:58 07/26/16 08:01 Glucose (Fingerstick) 144mg/dL (70-99) 103mg/dL (70-99) White Blood Count 5.8x10^3/uL (4.0-11.0) Red Blood Count 4.27x10^6/uL (3.50-5.40) Hemoglobin 10.6g/dL (12.0-15.5) Hematocrit 33.6% (36.0-47.0) Mean Corpuscular Volume 79fL (79-100) Mean Corpuscular Hemoglobin 25pg (25-35) Mean Corpuscular Hemoglobin Concent 32g/dL (31-37) Red Cell Distribution Width 17.4% (11.5-14.5) Platelet Count 129x10^3/uL (140-400) Neutrophils (%) (Auto) 61% (31-73) Lymphocytes (%) (Auto) 23% (24-48) Monocytes (%) (Auto) 13% (0-9) Eosinophils (%) (Auto) 4% (0-3) Basophils (%) (Auto) 1% (0-3) Neutrophils # (Auto) 3.5x10^3uL (1.8-7.7) Lymphocytes # (Auto) 1.3x10^3/uL (1.0-4.8) Monocytes # (Auto) 0.7x10^3/uL (0.0-1.1) Eosinophils # (Auto) 0.2x10^3/uL (0.0-0.7) Basophils # (Auto) 0.0x10^3/uL (0.0-0.2) Sodium Level 138mmol/L (136-145) Potassium Level 4.7mmol/L (3.5-5.1) Chloride Level 102mmol/L (98-107) Carbon Dioxide Level 30mmol/L (21-32) Anion Gap 6 (6-14) Blood Urea Nitrogen 50mg/dL (7-20) Creatinine 1.7mg/dL (0.6-1.0) Estimated GFR (Cockcroft-Gault) 35.6 Glucose Level 103mg/dL (70-99) Calcium Level 8.6mg/dL (8.5-10.1) Magnesium Level 2.2mg/dL (1.8-2.4) Digoxin Level 2.2ng/mL (0.9-2.0) Digoxin Last Dose Date Unknown Digoxin Last Dose Time Unknown Prothrombin Time 22.0SEC (11.7-14.0) Prothromb Time International Ratio 2.1 (0.8-1.1) Laboratory Tests Test 07/25/16 11:54 07/25/16 11:56 07/25/16 16:27 07/25/16 20:58 Glucose (Fingerstick) 119mg/dL (70-99) 130mg/dL (70-99) 144mg/dL (70-99) Prothrombin Time 32.0SEC (11.7-14.0) Prothromb Time International Ratio 3.3 (0.8-1.1) Test 07/26/16 05:00 07/26/16 07:58 07/26/16 08:01 White Blood Count 5.8x10^3/uL (4.0-11.0) Red Blood Count 4.27x10^6/uL (3.50-5.40) Hemoglobin 10.6g/dL (12.0-15.5) Hematocrit 33.6% (36.0-47.0) Mean Corpuscular Volume 79fL (79-100) Mean Corpuscular Hemoglobin 25pg (25-35) Mean Corpuscular Hemoglobin Concent 32g/dL (31-37) Red Cell Distribution Width 17.4% (11.5-14.5) Platelet Count 129x10^3/uL (140-400) Neutrophils (%) (Auto) 61% (31-73) Lymphocytes (%) (Auto) 23% (24-48) Monocytes (%) (Auto) 13% (0-9) Eosinophils (%) (Auto) 4% (0-3) Basophils (%) (Auto) 1% (0-3) Neutrophils # (Auto) 3.5x10^3uL (1.8-7.7) Lymphocytes # (Auto) 1.3x10^3/uL (1.0-4.8) Monocytes # (Auto) 0.7x10^3/uL (0.0-1.1) Eosinophils # (Auto) 0.2x10^3/uL (0.0-0.7) Basophils # (Auto) 0.0x10^3/uL (0.0-0.2) Sodium Level 138mmol/L (136-145) Potassium Level 4.7mmol/L (3.5-5.1) Chloride Level 102mmol/L (98-107) Carbon Dioxide Level 30mmol/L (21-32) Anion Gap 6 (6-14) Blood Urea Nitrogen 50mg/dL (7-20) Creatinine 1.7mg/dL (0.6-1.0) Estimated GFR (Cockcroft-Gault) 35.6 Glucose Level 103mg/dL (70-99) Calcium Level 8.6mg/dL (8.5-10.1) Magnesium Level 2.2mg/dL (1.8-2.4) Digoxin Level 2.2ng/mL (0.9-2.0) Digoxin Last Dose Date Unknown Digoxin Last Dose Time Unknown Glucose (Fingerstick) 103mg/dL (70-99) Prothrombin Time 22.0SEC (11.7-14.0) Prothromb Time International Ratio 2.1 (0.8-1.1) Meds Current Medications Warfarin Sodium (Coumadin - No Dose Today) 1 each 1X WARF ONCE MC Last administered on 07/25/16t 16:00; Start 07/25/16 at 16:00; Stop 07/25/16 at 16:01 ; Status DC Warfarin Sodium (Coumadin - No Dose Today) 1 each 1X WARF ONCE MC ; Start 07/26 at 16:00; Stop 07/26/16 at 16:01 Warfarin Sodium (Coumadin) 2.5 mg DAILY16 PO ; Start 07/27/16 at 16:00 Assessment Assessment INR 2.1.Restart coumadin at 2.5 mg daily. check Digoxin level- had Digoxin toxicity.Digoxin level is 2.1.Hold Digoxin. Doing better.Ok to discharge if ok with cardiology. see in 3 days on Wednesday. Discharge Management - 35 minutes. For more details regarding further plans, please refer to the orders. Plan Plan For more details regarding further plans, please refer to the orders. MERON DELATORRE MD Jul 26, 2016 11:10
[2016-07-26 11:43] VITALS: BP 96/58
[2016-07-26 14:32] VITALS: BP 116/65
[2016-07-26] MEDS ORDERED: WARFARIN 2.5 MG TABLET. PO SCH (16:00)
--- NOTE | 2016-07-26 21:38 | PDOC ---
Provider Note Provider Note Discharge summary dictated. #[id number] AFSHAN SLADE MD Jul 26, 2016 21:38
--- NOTE | 2016-07-27 00:41 | DS ---
DATE OF DISCHARGE: 07/26/2016 REASON FOR ADMISSION TO THE HOSPITAL: Congestive heart failure, [id number] systolic heart failure. CONSULTATIONS: Dr. Barajas. PROCEDURES DONE: 1. Echocardiogram. 2. Pacemaker check. COMPLICATIONS NOTED: None. HOSPITAL COURSE: The patient is a 71-year-old female, who was having shortness of breath and swelling in lower extremities and was found to be in congestive heart failure. The patient has dilated cardiomyopathy, ejection fraction 20%, and AICD in the past. She had her AICD battery changed last year. AICD was placed around 8 years ago, and at this time, she was having shortness of breath and was found to have acute congestive heart failure. Echocardiogram showed ejection fraction only 10% and severely dilated ventricles. The patient was seen by Cardiology, and a pacemaker check was done that was functioning well, AICD was functioning well. The patient was started on Entresto for congestive heart failure to see if that will help her. The patient had a routine laboratory data. INR was high at 4.6, Coumadin was on hold and decreased to 3 mg; INR was 2.1 at the time of discharge. Her digoxin was high at 3.2. Digoxin was held and recommended to continue half the dose every day, and check levels periodically. On the whole, the patient's condition improved, was given IV Lasix, changed to oral Lasix, and she was discharged. FINAL DIAGNOSES: 1. Congestive heart failure, [id number] systolic heart failure. 2. Chronic dilated cardiomyopathy, severe; left ventricular dysfunction, ejection fraction 10%. 3. Chronic atrial fibrillation, on Coumadin. 4. Diabetes. 5. Hypertension. 6. Mild renal insufficiency. 7. Protein-calorie malnutrition. 8. Hyperlipidemia. 9.The patient has automatic implantable cardioverter-defibrillator. 10. Increased digoxin levels in toxic range. 10. Coagulopathy secondary to Coumadin. See MRAD for discharge medications. AFSHAN SLADE MD DR: JLAYN/david JOB#: [id number] / [id number] BARTOLO
--- NOTE | 2016-07-27 21:51 | PDOC ---
Provider Note Provider Note Covering for Dr. Barajas. I was called on the morning of 07/26 to inform me that the digoxin level was 2.2 ng/mL. This was despite not taking any digoxin for the last 3 days. Previously it was 3.1 ng/mm. Dr. Campbell wanted this addressed. I went over her chart. She is also on amiodarone. The amiodarone would decrease the clearance of digoxin and thus the higher level. She has been monitored for the last few days and has had no arrhythmias even with a higher level of digoxin. She could thus be discharged and follow-up with Dr. Price . JESUS VILLAFANA MD Jul 27, 2016 21:51
== END 2016-07-26 16:30 | disposition home or self-care (01) | DRG 291 ==
LOC: CVICU 13:31
PROVIDERS: ADMIT Internal Medicine; ATTEND Internal Medicine
DX: I13.0 Hypertensive heart and chronic kidney disease with heart failure and stage 1 through stage 4 chronic kidney disease, or unspecified chronic kidney disease (principal); I50.23 Acute on chronic systolic (congestive) heart failure; E46 Unspecified protein-calorie malnutrition; I42.0 Dilated cardiomyopathy; Z68.26 Body mass index [BMI] 26.0-26.9, adult; E78.5 Hyperlipidemia, unspecified; I48.2 Chronic atrial fibrillation; K31.84 Gastroparesis; E11.43 Type 2 diabetes mellitus with diabetic autonomic (poly)neuropathy; N28.9 Disorder of kidney and ureter, unspecified; R79.1 Abnormal coagulation profile; T45.515A Adverse effect of anticoagulants, initial encounter; Z79.01 Long term (current) use of anticoagulants; Z82.49 Family history of ischemic heart disease and other diseases of the circulatory system; Z83.3 Family history of diabetes mellitus; Z91.041 Radiographic dye allergy status; Z91.011 Allergy to milk products; Z91.018 Allergy to other foods; Z95.810 Presence of automatic (implantable) cardiac defibrillator; Z79.82 Long term (current) use of aspirin; N18.3 Chronic kidney disease, stage 3 (moderate)
CPT/HCPCS: 36415; 71010; 80048; 80053; 80061; 80162; 82947; 83036; 83735; 83880; 84443; 85027; 85610; 93005; 93306; 94250; 94640; 94760; J1940; J7060; J7620; J8597

== ENCOUNTER 2016-08-14 14:40 | Inpatient (IN) | payer MEDICARE ==
[~2016-08-14] VITALS: Ht 160 cm; Wt 82.1 kg
[~2016-08-14 14:40] MED LIST changes: +AMIO200T7 PO; +ATOR40TA59 PO; +COLE1TAB PO; +INSU100I30 SQ; +METF-620 PO; -METF10002 PO; +METO10TA81 PO; +METO5TAB55 PO; +SACU1TAB PO; +WARF2.5T83 PO; +WARF5TAB7 PO; -WARF6TAB PO; +WARF6TAB49 PO
[2016-08-14 16:40] VITALS: BP 108/61
[2016-08-14] MEDS ORDERED: METOCLOPRAMIDE 10 MG TABLET. PO PRN (16:45)
[2016-08-14] MEDS ORDERED: DEXTROSE 50% 25 GM / 50ML DISP.SYRIN. IV PRN (16:45)
--- NOTE | 2016-08-14 17:21 | EKG ---
[facility] [address] [place] [address] Test Date: 2016-08-14 Test Time: 16:13:32 Pat Name: CLAUDIO CORRAL Department: Room: 256 1 Gender: M [employer] Reporter: : 1945 Requested By: AFSHAN SLADE Order Number: [id number] Reading MD: Romulo Cloud Measurements Intervals [place] Rate: 60 P: 180 PA: 0 QRS: -31 QRSD: 124 T: 84 QT: 550 QTc: 550 Interpretive Statements SUSPECT V-PACING RHYTHM Electronically Signed On 09-07-2016 8:52:40 CDT by Romulo Cloud
[2016-08-14] MEDS ORDERED: IV NORMAL SALINE 1000ML BAG 1,000 ML IV SCH (17:30)
[2016-08-14] MEDS: INSULIN ASPART 300 UNITS/3 ML INSULN.PEN SQ SCH (17:30)
[2016-08-14 17:51] LABS: INR 1.5 (0.8-1.1); PROTHROMBIN TIME PATIENT 17.3 SEC (11.7-14.0)
[2016-08-14 17:53] LABS: BASO % 1 % (0-3); EOS % 1 % (0-3); HEMATOCRIT 34.9 % (39.0-53.0); HEMOGLOBIN 10.7 g/dL (13.0-17.5); LYMPH # 0.7 x10^3/uL (1.0-4.8); LYMPH % 15 % (24-48); MEAN CORPUSCULAR HEMOGLOBIN 25 pg (25-35); MEAN CORPUSCULAR HGB CONC 31 g/dL (31-37); MEAN CORPUSCULAR VOLUME 81 fL (79-100); MONO % 10 % (0-9); NEUT % 74 % (31-73); PLATELET COUNT 132 x10^3/uL (140-400); RED CELL DISTRIBUTION WIDTH 19.8 % (11.5-14.5); WHITE BLOOD COUNT 4.6 x10^3/uL (4.0-11.0)
[2016-08-14] MEDS ORDERED: WARFARIN 2.5 MG TABLET. PO SCH (18:00)
[2016-08-14 18:10] LABS: ALBUMIN 3.4 g/dL (3.4-5.0); ALBUMIN/GLOBULIN RATIO 0.9 (1.0-1.7); CALCIUM 9.2 mg/dL (8.5-10.1); CREATININE 3.8 mg/dL (0.7-1.3); TOTAL BILIRUBIN 0.5 mg/dL (0.2-1.0); TOTAL PROTEIN 7.3 g/dL (6.4-8.2)
[2016-08-14 18:13] LABS: POTASSIUM 6.6 mmol/L (3.5-5.1)
[2016-08-14] MEDS ORDERED: SODIUM POLYSTYRENE SULFONATE 15 GM/60 ML ORAL.SUSP. PO ONE (18:30)
[2016-08-14] MEDS: CARVEDILOL 6.25 MG TABLET. PO SCH (18:50)
[2016-08-14 19:26] VITALS: BP 105/44
[2016-08-14] MEDS: SACUBITRIL/VALSARTAN 24/26MG TABLET. PO SCH (21:00)
[2016-08-14] MEDS: ATORVASTATIN CALCIUM 40 MG TABLET. PO SCH (21:12)
[2016-08-14] MEDS: COLESTIPOL HCL 1 GM TABLET PO SCH (21:12)
[2016-08-14 22:37] VITALS: BP 92/54
[2016-08-15] VITALS (15 sets, daily range): BP systolic 85–119; BP diastolic 51–70
[2016-08-15 05:53] LABS: BASO % 1 % (0-3); EOS % 3 % (0-3); HEMATOCRIT 33.5 % (39.0-53.0); HEMOGLOBIN 10.6 g/dL (13.0-17.5); LYMPH # 0.8 x10^3/uL (1.0-4.8); LYMPH % 16 % (24-48); MEAN CORPUSCULAR HEMOGLOBIN 25 pg (25-35); MEAN CORPUSCULAR HGB CONC 32 g/dL (31-37); MEAN CORPUSCULAR VOLUME 79 fL (79-100); MONO % 14 % (0-9); NEUT % 66 % (31-73); PLATELET COUNT 139 x10^3/uL (140-400); RED BLOOD COUNT 4.24 x10^6/uL (4.30-5.70); RED CELL DISTRIBUTION WIDTH 19.5 % (11.5-14.5); WHITE BLOOD COUNT 4.8 x10^3/uL (4.0-11.0)
[2016-08-15 06:12] LABS: CALCIUM 8.9 mg/dL (8.5-10.1); CREATININE 3.6 mg/dL (0.7-1.3); GFR 20.2; POTASSIUM 5.2 mmol/L (3.5-5.1)
[2016-08-15] MEDS: INSULIN ASPART 300 UNITS/3 ML INSULN.PEN SQ SCH ×3 (08:00→17:00)
--- NOTE | 2016-08-15 08:03 | RAD ---
EXAM: Chest, 2 views. HISTORY: Congestion. COMPARISON: 07/22/2016. FINDINGS: Frontal and lateral views of the chest are obtained. There is stable diffuse interstitial prominence likely due to trace congestion. There is no effusion or pneumothorax. There is stable cardiomegaly. There is a cardiac pacemaker defibrillator with leads in expected position. IMPRESSION: Stable suspected trace congestion and stable cardiomegaly.
--- NOTE | 2016-08-15 08:15 | RAD ---
EXAM: Renal sonogram. HISTORY: Renal failure. TECHNIQUE: Graphic imaging of the kidneys and bladder was performed. COMPARISON: 02/16/2010. FINDINGS: The right kidney measures 11.6 cm [id number] and the left kidney measures 9.4 cm [id number]. There are bilateral renal cysts, measuring 1.9 cm within the lateral right mid zone, 3.5 cm within the lateral left mid zone and 1.0 cm within the anterior left mid zone. No solid renal lesion is seen. There is no hydronephrosis. There are elevated renal resistive indices, measuring 0.81 on the right and 0.87 on the left. The bladder is unremarkable. The ureteral jets are not seen to the exam. IMPRESSION: 1. Elevated renal resistive indices, a finding which can be seen with intrinsic renal disease. 2. Bilateral renal cysts, the largest of which measures 3.5 cm on the left. This largest cyst appears simple and is slightly increased compared to the prior study. The smaller left renal cyst is not seen on the prior study and may contain debris. The right renal cyst is not significant changed.
[2016-08-15] MEDS: COLESTIPOL HCL 1 GM TABLET PO SCH ×3 (09:27→20:24)
[2016-08-15] MEDS: AMIODARONE HCL 200 MG TABLET. PO SCH (09:32)
[2016-08-15] MEDS: ASPIRIN ENTERIC COATED 81 MG TABLET.DR. PO SCH (09:33)
[2016-08-15] MEDS: SACUBITRIL/VALSARTAN 24/26MG TABLET. PO SCH ×2 (09:34→20:24)
[2016-08-15] MEDS: CARVEDILOL 6.25 MG TABLET. PO SCH ×2 (09:34→16:33)
--- NOTE | 2016-08-15 10:21 | PDOC1 ---
LAWSON MONTILLA SEEDLING PULLER 08/15/16 1021: HISTORY AND PHYSICAL Chief Complaint Chief Complaint This 71 year old Amercian female has been admitted with a chief complaint of acute renal failure and acute on chronic systolic CHF. She was sent to [facility] from the office. Lab from visit 08/05/16 BUN 110 and K 6.0. Lab after admission: Na 133, K 6.6, BUN 142 and Cr 3.8. Kayexalate was given for the elevated K. IVF NS 40cc/hr. CXR mild acute on chronic CHF. She is on warfarin and INR was 1.2. She has been admitted to the [facility]. Problem List Problems Medical Problems: (1) Acute on chronic renal failure Status: Acute Past Medical History Cardiovascular: CHF (EF 10% ICM, AICD ), HTN, Valve insufficiency (Mild to mod MR), Pulmonary hypertension (mod) Renal/: Chronic renal insuff (CKD IIf2 ) Endocrine: Diabetes (Type II diet control) Past Surgical History Past Surgical History: Pacemaker (AICD ), Cholecystectomy, Other (tubal with one tube removed) Past Family History Family History: Heart Disease, Hypertension Past Social History PSH no h/o ETOH, tobacco, or illicit drug Review of Symptoms Review of Symptoms A 14 point ROS was completed with the following noted as positive: feeling weak , mental clarity decreased Other systems reviewed and negative. Medications Medications reviewed and reconciled Allergy Allergies Coded Allergies Type Severity Reaction Last Updated Verified Iodinated Contrast Media - Oral and Allergy Intermediate 06/10/15 Yes lactose Allergy Intermediate 07/24/16 Yes strawberry Allergy Intermediate 06/10/15 Yes Physical Exam Physical Exam General appearance - alert, chronically appearing, and in no distress Mental Status - alert, oriented to person, place, and time, affect appropriate to mood Head - normal Chest - clear to auscultation, no wheezes, rales or rhonchi, symmetric air entry Heart - S1 and S2 normal Abdomen - soft, nontender, nondistended, no masses or organomegaly Neurological - no acute focal neurological deficits noted Musculoskeletal - no muscular tenderness noted Extremities - +1 pedal edema Skin - warm and dry VTE Prophylaxis Ordered VTE Prophylaxis Devices: Yes VTE Pharmacological Prophylaxi: No Assessment Labs Laboratory Tests Test 08/14/16 17:15 08/14/16 18:09 08/14/16 20:31 08/15/16 05:00 White Blood Count 4.6x10^3/uL (4.0-11.0) 4.8x10^3/uL (4.0-11.0) Red Blood Count 4.30x10^6/uL (4.30-5.70) 4.24x10^6/uL (4.30-5.70) Hemoglobin 10.7g/dL (13.0-17.5) 10.6g/dL (13.0-17.5) Hematocrit 34.9% (39.0-53.0) 33.5% (39.0-53.0) Mean Corpuscular Volume 81fL (79-100) 79fL (79-100) Mean Corpuscular Hemoglobin 25pg (25-35) 25pg (25-35) Mean Corpuscular Hemoglobin Concent 31g/dL (31-37) 32g/dL (31-37) Red Cell Distribution Width 19.8% (11.5-14.5) 19.5% (11.5-14.5) Platelet Count 132x10^3/uL (140-400) 139x10^3/uL (140-400) Neutrophils (%) (Auto) 74% (31-73) 66% (31-73) Lymphocytes (%) (Auto) 15% (24-48) 16% (24-48) Monocytes (%) (Auto) 10% (0-9) 14% (0-9) Eosinophils (%) (Auto) 1% (0-3) 3% (0-3) Basophils (%) (Auto) 1% (0-3) 1% (0-3) Neutrophils # (Auto) 3.4x10^3uL (1.8-7.7) 3.2x10^3uL (1.8-7.7) Lymphocytes # (Auto) 0.7x10^3/uL (1.0-4.8) 0.8x10^3/uL (1.0-4.8) Monocytes # (Auto) 0.4x10^3/uL (0.0-1.1) 0.7x10^3/uL (0.0-1.1) Eosinophils # (Auto) 0.0x10^3/uL (0.0-0.7) 0.1x10^3/uL (0.0-0.7) Basophils # (Auto) 0.0x10^3/uL (0.0-0.2) 0.0x10^3/uL (0.0-0.2) Prothrombin Time 17.3SEC (11.7-14.0) Prothromb Time International Ratio 1.5 (0.8-1.1) Sodium Level 133mmol/L (136-145) 137mmol/L (136-145) Potassium Level 6.6mmol/L (3.5-5.1) 5.2mmol/L (3.5-5.1) Chloride Level 101mmol/L (98-107) 103mmol/L (98-107) Carbon Dioxide Level 16mmol/L (21-32) 18mmol/L (21-32) Anion Gap 16 (6-14) 16 (6-14) Blood Urea Nitrogen 142mg/dL (8-26) 141mg/dL (8-26) Creatinine 3.8mg/dL (0.7-1.3) 3.6mg/dL (0.7-1.3) Estimated GFR (Cockcroft-Gault) 19.0 20.2 BUN/Creatinine Ratio 37 (6-20) Glucose Level 136mg/dL (70-99) 123mg/dL (70-99) Calcium Level 9.2mg/dL (8.5-10.1) 8.9mg/dL (8.5-10.1) Total Bilirubin 0.5mg/dL (0.2-1.0) Aspartate Amino Transf (AST/SGOT) 52U/L (15-37) Alanine Aminotransferase (ALT/SGPT) 55U/L (16-63) Alkaline Phosphatase 111U/L (46-116) Total Protein 7.3g/dL (6.4-8.2) Albumin 3.4g/dL (3.4-5.0) Albumin/Globulin Ratio 0.9 (1.0-1.7) Glucose (Fingerstick) 119mg/dL (70-99) 123mg/dL (70-99) Test 08/15/16 07:53 Glucose (Fingerstick) 135mg/dL (70-99) Laboratory Tests Test 3/31/17 17:15 08/14/16 18:09 08/14/16 20:31 08/15/16 05:00 White Blood Count 4.6x10^3/uL (4.0-11.0) 4.8x10^3/uL (4.0-11.0) Red Blood Count 4.30x10^6/uL (4.30-5.70) 4.24x10^6/uL (4.30-5.70) Hemoglobin 10.7g/dL (13.0-17.5) 10.6g/dL (13.0-17.5) Hematocrit 34.9% (39.0-53.0) 33.5% (39.0-53.0) Mean Corpuscular Volume 81fL (79-100) 79fL (79-100) Mean Corpuscular Hemoglobin 25pg (25-35) 25pg (25-35) Mean Corpuscular Hemoglobin Concent 31g/dL (31-37) 32g/dL (31-37) Red Cell Distribution Width 19.8% (11.5-14.5) 19.5% (11.5-14.5) Platelet Count 132x10^3/uL (140-400) 139x10^3/uL (140-400) Neutrophils (%) (Auto) 74% (31-73) 66% (31-73) Lymphocytes (%) (Auto) 15% (24-48) 16% (24-48) Monocytes (%) (Auto) 10% (0-9) 14% (0-9) Eosinophils (%) (Auto) 1% (0-3) 3% (0-3) Basophils (%) (Auto) 1% (0-3) 1% (0-3) Neutrophils # (Auto) 3.4x10^3uL (1.8-7.7) 3.2x10^3uL (1.8-7.7) Lymphocytes # (Auto) 0.7x10^3/uL (1.0-4.8) 0.8x10^3/uL (1.0-4.8) Monocytes # (Auto) 0.4x10^3/uL (0.0-1.1) 0.7x10^3/uL (0.0-1.1) Eosinophils # (Auto) 0.0x10^3/uL (0.0-0.7) 0.1x10^3/uL (0.0-0.7) Basophils # (Auto) 0.0x10^3/uL (0.0-0.2) 0.0x10^3/uL (0.0-0.2) Prothrombin Time 17.3SEC (11.7-14.0) Prothromb Time International Ratio 1.5 (0.8-1.1) Sodium Level 133mmol/L (136-145) 137mmol/L (136-145) Potassium Level 6.6mmol/L (3.5-5.1) 5.2mmol/L (3.5-5.1) Chloride Level 101mmol/L (98-107) 103mmol/L (98-107) Carbon Dioxide Level 16mmol/L (21-32) 18mmol/L (21-32) Anion Gap 16 (6-14) 16 (6-14) Blood Urea Nitrogen 142mg/dL (8-26) 141mg/dL (8-26) Creatinine 3.8mg/dL (0.7-1.3) 3.6mg/dL (0.7-1.3) Estimated GFR (Cockcroft-Gault) 19.0 20.2 BUN/Creatinine Ratio 37 (6-20) Glucose Level 136mg/dL (70-99) 123mg/dL (70-99) Calcium Level 9.2mg/dL (8.5-10.1) 8.9mg/dL (8.5-10.1) Total Bilirubin 0.5mg/dL (0.2-1.0) Aspartate Amino Transf (AST/SGOT) 52U/L (15-37) Alanine Aminotransferase (ALT/SGPT) 55U/L (16-63) Alkaline Phosphatase 111U/L (46-116) Total Protein 7.3g/dL (6.4-8.2) Albumin 3.4g/dL (3.4-5.0) Albumin/Globulin Ratio 0.9 (1.0-1.7) Glucose (Fingerstick) 119mg/dL (70-99) 123mg/dL (70-99) Test 08/15/16 07:53 Glucose (Fingerstick) 135mg/dL (70-99) Plan Plan 1. ARF with CKD II ATN SONA 2. a/c systolic CHF ICM EF 10% AICD 3. HTN 4. DM II with CKD II diet control 5. hyperlipidemia 6. mild to mod MR 7. moderate pulmonary HTN 8. severe weakness and debility 9. metabolic encephalopathy POA 10. moderate chronic PCL malnutrition PLAN CHF cardiology consult continue enestro Stop lasix/kcl Weight last discharge 150.37 Admit wt 157.5 ARF with CKD renal consult IV NS 40cc/hr lasix and kcl stopped Kayexalate given-K decrease to 5.2 DM II FSBS/low intensity SSI DVT/GI prophylaxis SCD/Yeison warfarin per pharmacy pepcid For more details regarding further plans, please refer to the orders. MERON DELATORRE MD 08/15/16 1045: HISTORY AND PHYSICAL Plan Plan Hyperkalemia- improving. D/w multiple family members. The patient was seen and examined by me. Chart reviewed and plan of care formulated. Discussed with, reviewed and agree with [employer]'s notes, plan of care and orders with modifications as necessary. For more details regarding further plans, please refer to the orders. LAWSON MONTILLA APRN Aug 15, 2016 10:21 MERON DELATORRE MD Aug 15, 2016 10:45
[2016-08-15 11:20] LABS: BILIRUBIN,URINE NEGATIVE (NEG); GLUCOSE,URINE NEGATIVE (NEG); NITRITE,URINE NEGATIVE (NEG); PROTEIN,URINE NEGATIVE (NEG-TRACE); UROBILINOGEN,URINE 0.2 mg/dL (0.2 mg/dL)
[2016-08-15] MEDS: PANTOPRAZOLE 40 MG TABLET.DR. PO SCH (11:38)
[2016-08-15 11:42] LABS: BACTERIA,URINE MANY /HPF (0-FEW); RBC,URINE FOBS /HPF (0-2); SQUAMOUS EPITHELIAL CELL,UR MOD /LPF; WBC,URINE TNTC /HPF (0-4)
[2016-08-15] MEDS ORDERED: ALBUMIN HUMAN 25% 100 ML IV ONE (14:00)
--- NOTE | 2016-08-15 14:33 | PDOC2 ---
CONSULT Date of Consult Date of Consult DATE: 08/15/16 TIME: 14:26 Reason for Consult Reason for Consult: Cardiomyopathy Referring Physician Referring Physician: Dr Garcia Identification/Chief Complaint Chief Complaint Acute renal failure and hyperkalemia History of Present Illness Reason for Visit: This patient is a 71-year-old lady with a known history of an advanced cardiomyopathy that has a global left ventricular ejection fraction of 10% and chronic CHF. She went to see her primary care physician and was then referred for a direct admission. I saw her about 3 weeks ago and from the time that I saw HER-2 now there has been a significant difference in that she now has leg edema and an increased abdominal girth with possible ascites this was not present when I saw her in the office. The patient was found to have an elevated BUN/creatinine and creatinine as well as a potassium level of 6. At this time she denies having any chest pains, no palpitations, no significant dyspnea at rest. She has a known history of hypertension, chronic CHF, diabetes and her level of activity has been dramatically decreasing. Past Medical History Cardiovascular: CHF (EF 10% ICM, AICD ), HTN, Valve insufficiency (Mild to mod MR), Pulmonary hypertension (mod) Renal/: Chronic renal insuff (CKD IIf2 ) Endocrine: Diabetes (Type II diet control) Past Surgical History Past Surgical History: Pacemaker (AICD ), Cholecystectomy, Other (tubal with one tube removed) Family History Family History: Heart Disease, Hypertension Current Problem List Problem List Problems Medical Problems: (1) Acute on chronic renal failure Status: Acute Current Medications Current Medications Current Medications Insulin Aspart (Novolog) 0-5 UNITS TIDWMEALS SQ ; Start 08/14/16 at 17:30 Dextrose 12.5 gm 12.5 gm PRN Q15MIN PRN IV SEE COMMENTS; Start 08/14/16 at 16: 45 Sodium Chloride (Iv Sodium Chloride 0.9% 1000ml Bag) 1,000 ml @ 100 mls/hr Q10H IV Last administered on 08/14/16 18:53; Start 08/14/16 at 17:30; Stop 08/15/16 at 03:29; Status DC Amiodarone HCl (Cordarone) 200 mg DAILY PO Last administered on 08/15/16 09:32 ; Start 08/15/16 at 09:00 Aspirin (Ecotrin) 81 mg DAILY PO Last administered on 08/15/16 09:33; Start 08/15/16 at 09:00 Atorvastatin Calcium (Lipitor) 40 mg QHS PO Last administered on 08/14/16 21: 12; Start 08/14/16 at 21:00 Carvedilol (Coreg) 6.25 mg BIDWMEALS PO Last administered on 08/15/16 09:34; Start 08/14/16 at 17:30 Colestipol HCl (Colestid) 1 gm TID PO Last administered on 08/15/16 09:27; Start 08/14/16 at 21:00 Metoclopramide HCl (Reglan) 5 mg PRN BID PRN PO NAUSEA; Start 08/14/16 at 16:45 Sacubitril/ Valsartan (Entresto 24 Mg-26 Mg) 1 tab BID PO Last administered on 08/15/16 09:34; Start 08/14/16 at 21:00 Warfarin Sodium (Coumadin) 2.5 mg DAILY16 PO Last administered on 08/14/16 18: 50; Start 08/14/16 at 18:00; Stop 08/15/16 at 14:13; Status DC Warfarin Sodium (Coumadin Per Physician) 1 each PRN DAILY PRN MC SEE COMMENTS; Start 08/14/16 at 17:15; Stop 08/15/16 at 09:54; Status DC Sodium Polystyrene Sulfonate (Kayexalate) 60 gm 1X ONCE PO Last administered on 08/14/16 18:51; Start 08/14/16 at 18:30; Stop 08/14/16 at 18:31; Status DC Warfarin Sodium (Coumadin Per Pharmacy) 1 each PRN DAILY PRN MC SEE COMMENTS Last administered on 08/15/16 14:10; Start 08/15/16 at 10:00 Pantoprazole Sodium 40 mg 40 mg DAILYAC PO Last administered on 08/15/16 11:38 ; Start 08/15/16 at 11:30 Dobutamine HCl/ Dextrose 250 ml @ 0 mls/hr CONT PRN IV ; Start 08/15/16 at 14:00 Albumin Human (Albuminar) 100 ml @ 100 mls/hr 1X ONCE IV ; Start 08/15/16 at 14 :00; Stop 4/1/17 at 14:59 Furosemide 40 mg 40 mg 1X ONCE IVP ; Start 08/15/16 at 15:00; Stop 08/15/16 at 15 :01 Albumin Human (Albuminar) 100 ml @ 100 mls/hr 1X ONCE IV ; Start 08/16/16 at 09 :00; Stop 08/16/16 at 09:59 Furosemide (Lasix) 40 mg 1X ONCE IVP ; Start 08/16/16 at 10:00; Stop 08/16/16 at 10:01 Warfarin Sodium (Coumadin) 4 mg 1X WARF ONCE PO ; Start 08/15/16 at 16:00; Stop 08/15/16 at 16:01 Active Scripts Active Entresto 24 mg-26 mg Tablet (Sacubitril/Valsartan) 1 Each Tablet 1 Tab PO BID Coumadin (Warfarin Sodium) 2.5 Mg Tablet 2.5 Mg PO DAILY16 Reported Reglan (Metoclopramide Hcl) 10 Mg Tablet 5 Mg PO PRN BID PRN Atorvastatin Calcium 40 Mg Tablet 1 Tab PO DAILY Colestid (Colestipol Hcl) 1 Gm Tablet 1 Gm PO TID Pacerone (Amiodarone Hcl) 200 Mg Tablet 200 Mg PO DAILY Lasix (Furosemide) 80 Mg Tablet 1 Tab PO BID Gabapentin 100 Mg Capsule 1 Cap PO TID Aspir 81 (Aspirin) 81 Mg Tablet.dr 1 Tab PO DAILY Coreg (Carvedilol) 6.25 Mg Tablet 1 Tab PO BID K-Tab ER (Potassium Chloride) 20 Meq Tablet.er 20 Meq PO BID Allergies Allergies: Coded Allergies: Iodinated Contrast Media - Oral and (Verified Allergy, Intermediate, ) lactose (Verified Allergy, Intermediate, 07/24/16) strawberry (Verified Allergy, Intermediate, 06/10/15) Physical Exam Physical Exam H EENT pupils are reactive, oral mucosa well-hydrated. Neck is supple 2 cm JVD. Lungs breath sounds are decreased, no wheezing, basal rales. Heart regular rate and rhythm S1-S2 1 to 2/6 systolic murmur. Abdomen is distended and there appears to be ascites present. Extremities 2+ pitting edema. Neurological exam is unchanged from 3 weeks ago. Vitals VITALS Vital Signs Date Time Temp Pulse Resp B/P Pulse Ox O2 Delivery O2 Flow Rate FiO2 08/15/16 11:10 98.5 64 18 113/67 88 Room Air 98.5 Labs Labs Laboratory Tests Test 3/31/17 17:15 08/14/16 18:09 08/14/16 20:31 08/15/16 05:00 White Blood Count 4.6x10^3/uL (4.0-11.0) 4.8x10^3/uL (4.0-11.0) Red Blood Count 4.30x10^6/uL (4.30-5.70) 4.24x10^6/uL (4.30-5.70) Hemoglobin 10.7g/dL (13.0-17.5) 10.6g/dL (13.0-17.5) Hematocrit 34.9% (39.0-53.0) 33.5% (39.0-53.0) Mean Corpuscular Volume 81fL (79-100) 79fL (79-100) Mean Corpuscular Hemoglobin 25pg (25-35) 25pg (25-35) Mean Corpuscular Hemoglobin Concent 31g/dL (31-37) 32g/dL (31-37) Red Cell Distribution Width 19.8% (11.5-14.5) 19.5% (11.5-14.5) Platelet Count 132x10^3/uL (140-400) 139x10^3/uL (140-400) Neutrophils (%) (Auto) 74% (31-73) 66% (31-73) Lymphocytes (%) (Auto) 15% (24-48) 16% (24-48) Monocytes (%) (Auto) 10% (0-9) 14% (0-9) Eosinophils (%) (Auto) 1% (0-3) 3% (0-3) Basophils (%) (Auto) 1% (0-3) 1% (0-3) Neutrophils # (Auto) 3.4x10^3uL (1.8-7.7) 3.2x10^3uL (1.8-7.7) Lymphocytes # (Auto) 0.7x10^3/uL (1.0-4.8) 0.8x10^3/uL (1.0-4.8) Monocytes # (Auto) 0.4x10^3/uL (0.0-1.1) 0.7x10^3/uL (0.0-1.1) Eosinophils # (Auto) 0.0x10^3/uL (0.0-0.7) 0.1x10^3/uL (0.0-0.7) Basophils # (Auto) 0.0x10^3/uL (0.0-0.2) 0.0x10^3/uL (0.0-0.2) Prothrombin Time 17.3SEC (11.7-14.0) Prothromb Time International Ratio 1.5 (0.8-1.1) Sodium Level 133mmol/L (136-145) 137mmol/L (136-145) Potassium Level 6.6mmol/L (3.5-5.1) 5.2mmol/L (3.5-5.1) Chloride Level 101mmol/L (98-107) 103mmol/L (98-107) Carbon Dioxide Level 16mmol/L (21-32) 18mmol/L (21-32) Anion Gap 16 (6-14) 16 (6-14) Blood Urea Nitrogen 142mg/dL (8-26) 141mg/dL (8-26) Creatinine 3.8mg/dL (0.7-1.3) 3.6mg/dL (0.7-1.3) Estimated GFR (Cockcroft-Gault) 19.0 20.2 BUN/Creatinine Ratio 37 (6-20) Glucose Level 136mg/dL (70-99) 123mg/dL (70-99) Calcium Level 9.2mg/dL (8.5-10.1) 8.9mg/dL (8.5-10.1) Total Bilirubin 0.5mg/dL (0.2-1.0) Aspartate Amino Transf (AST/SGOT) 52U/L (15-37) Alanine Aminotransferase (ALT/SGPT) 55U/L (16-63) Alkaline Phosphatase 111U/L (46-116) Total Protein 7.3g/dL (6.4-8.2) Albumin 3.4g/dL (3.4-5.0) Albumin/Globulin Ratio 0.9 (1.0-1.7) Glucose (Fingerstick) 119mg/dL (70-99) 123mg/dL (70-99) Test 08/15/16 07:53 08/15/16 11:00 08/15/16 12:18 Glucose (Fingerstick) 135mg/dL (70-99) 128mg/dL (70-99) Urine Collection Type Unknown Urine Color Yellow Urine Clarity Cloudy Urine pH 5.0 Urine Specific [place] 1.015 Urine Protein Negativemg/dL (NEG-TRACE) Urine Glucose (UA) Negativemg/dL (NEG) Urine Ketones (Stick) Negativemg/dL (NEG) Urine Blood Trace (NEG) Urine Nitrite Negative (NEG) Urine Bilirubin Negative (NEG) Urine Urobilinogen Dipstick 0.2mg/dL (0.2 mg/dL) Urine Leukocyte Esterase Large (NEG) Urine RBC Fobs/HPF (0-2) Urine WBC Tntc/HPF (0-4) Urine Squamous Epithelial Cells Mod/LPF Urine Bacteria Many/HPF (0-FEW) Urine Mucus Mod/LPF Laboratory Tests Test 08/14/16 17:15 08/14/16 18:09 08/14/16 20:31 08/15/16 05:00 White Blood Count 4.6x10^3/uL (4.0-11.0) 4.8x10^3/uL (4.0-11.0) Red Blood Count 4.30x10^6/uL (4.30-5.70) 4.24x10^6/uL (4.30-5.70) Hemoglobin 10.7g/dL (13.0-17.5) 10.6g/dL (13.0-17.5) Hematocrit 34.9% (39.0-53.0) 33.5% (39.0-53.0) Mean Corpuscular Volume 81fL (79-100) 79fL (79-100) Mean Corpuscular Hemoglobin 25pg (25-35) 25pg (25-35) Mean Corpuscular Hemoglobin Concent 31g/dL (31-37) 32g/dL (31-37) Red Cell Distribution Width 19.8% (11.5-14.5) 19.5% (11.5-14.5) Platelet Count 132x10^3/uL (140-400) 139x10^3/uL (140-400) Neutrophils (%) (Auto) 74% (31-73) 66% (31-73) Lymphocytes (%) (Auto) 15% (24-48) 16% (24-48) Monocytes (%) (Auto) 10% (0-9) 14% (0-9) Eosinophils (%) (Auto) 1% (0-3) 3% (0-3) Basophils (%) (Auto) 1% (0-3) 1% (0-3) Neutrophils # (Auto) 3.4x10^3uL (1.8-7.7) 3.2x10^3uL (1.8-7.7) Lymphocytes # (Auto) 0.7x10^3/uL (1.0-4.8) 0.8x10^3/uL (1.0-4.8) Monocytes # (Auto) 0.4x10^3/uL (0.0-1.1) 0.7x10^3/uL (0.0-1.1) Eosinophils # (Auto) 0.0x10^3/uL (0.0-0.7) 0.1x10^3/uL (0.0-0.7) Basophils # (Auto) 0.0x10^3/uL (0.0-0.2) 0.0x10^3/uL (0.0-0.2) Prothrombin Time 17.3SEC (11.7-14.0) Prothromb Time International Ratio 1.5 (0.8-1.1) Sodium Level 133mmol/L (136-145) 137mmol/L (136-145) Potassium Level 6.6mmol/L (3.5-5.1) 5.2mmol/L (3.5-5.1) Chloride Level 101mmol/L (98-107) 103mmol/L (98-107) Carbon Dioxide Level 16mmol/L (21-32) 18mmol/L (21-32) Anion Gap 16 (6-14) 16 (6-14) Blood Urea Nitrogen 142mg/dL (8-26) 141mg/dL (8-26) Creatinine 3.8mg/dL (0.7-1.3) 3.6mg/dL (0.7-1.3) Estimated GFR (Cockcroft-Gault) 19.0 20.2 BUN/Creatinine Ratio 37 (6-20) Glucose Level 136mg/dL (70-99) 123mg/dL (70-99) Calcium Level 9.2mg/dL (8.5-10.1) 8.9mg/dL (8.5-10.1) Total Bilirubin 0.5mg/dL (0.2-1.0) Aspartate Amino Transf (AST/SGOT) 52U/L (15-37) Alanine Aminotransferase (ALT/SGPT) 55U/L (16-63) Alkaline Phosphatase 111U/L (46-116) Total Protein 7.3g/dL (6.4-8.2) Albumin 3.4g/dL (3.4-5.0) Albumin/Globulin Ratio 0.9 (1.0-1.7) Glucose (Fingerstick) 119mg/dL (70-99) 123mg/dL (70-99) Test 08/15/16 07:53 08/15/16 11:00 08/15/16 12:18 Glucose (Fingerstick) 135mg/dL (70-99) 128mg/dL (70-99) Urine Collection Type Unknown Urine Color Yellow Urine Clarity Cloudy Urine pH 5.0 Urine Specific [place] 1.015 Urine Protein Negativemg/dL (NEG-TRACE) Urine Glucose (UA) Negativemg/dL (NEG) Urine Ketones (Stick) Negativemg/dL (NEG) Urine Blood Trace (NEG) Urine Nitrite Negative (NEG) Urine Bilirubin Negative (NEG) Urine Urobilinogen Dipstick 0.2mg/dL (0.2 mg/dL) Urine Leukocyte Esterase Large (NEG) Urine RBC Fobs/HPF (0-2) Urine WBC Tntc/HPF (0-4) Urine Squamous Epithelial Cells Mod/LPF Urine Bacteria Many/HPF (0-FEW) Urine Mucus Mod/LPF Assessment/Plan Assessment/Plan This patient comes in with acute on chronic renal failure and hyperkalemia. She has chronic CHF with an end-stage dilated cardiomyopathy and an ejection fraction of 10%. From a cardiac standpoint I would recommend for this patient to be started on a dobutamine drip and in view of the ascites I would like to do some albumin and Lasix this should help with the hyperkalemia as well and I agree with the Kayexalate. Thank you very much for asking me to participate in the care of this patient. HEATHER CHERRY MD Aug 15, 2016 14:33
[2016-08-15] MEDS ORDERED: FUROSEMIDE 40 MG/4 ML VIAL. IVP ONE (15:00)
--- NOTE | 2016-08-15 15:23 | PDOC2 ---
CONSULT Date of Consult Date of Consult DATE: 08/15/16 TIME: 15:15 Reason for Consult Reason for Consult: SONA/ ^K Referring Physician Referring Physician: Dr Garcia Identification/Chief Complaint Chief Complaint SONA on labs Problems: Source Source: Chart review, Patient History of Present Illness Reason for Visit: as dictated Past Medical History Cardiovascular: CHF (EF 10% ICM, AICD ), HTN, Valve insufficiency (Mild to mod MR), Pulmonary hypertension (mod) Renal/: Chronic renal insuff (CKD IIf2 ) Endocrine: Diabetes (Type II diet control) Past Surgical History Past Surgical History: Pacemaker (AICD ), Cholecystectomy, Other (tubal with one tube removed) Family History Family History: Heart Disease, Hypertension Social History No ALCOHOL: none Drugs: None Lives: with Family Current Problem List Problem List Problems Medical Problems: (1) Acute on chronic renal failure Status: Acute Current Medications Current Medications Current Medications Insulin Aspart (Novolog) 0-5 UNITS TIDWMEALS SQ ; Start 08/14/16 at 17:30 Dextrose 12.5 gm 12.5 gm PRN Q15MIN PRN IV SEE COMMENTS; Start 08/14/16 at 16: 45 Sodium Chloride (Iv Sodium Chloride 0.9% 1000ml Bag) 1,000 ml @ 100 mls/hr Q10H IV Last administered on 08/14/16 18:53; Start 08/14/16 at 17:30; Stop 08/15/16 at 03:29; Status DC Amiodarone HCl (Cordarone) 200 mg DAILY PO Last administered on 08/15/16 09:32 ; Start 08/15/16 at 09:00 Aspirin (Ecotrin) 81 mg DAILY PO Last administered on 08/15/16 09:33; Start 08/15/16 at 09:00 Atorvastatin Calcium (Lipitor) 40 mg QHS PO Last administered on 08/14/16 21: 12; Start 08/14/16 at 21:00 Carvedilol (Coreg) 6.25 mg BIDWMEALS PO Last administered on 08/15/16 09:34; Start 08/14/16 at 17:30 Colestipol HCl (Colestid) 1 gm TID PO Last administered on 08/15/16 14:59; Start 08/14/16 at 21:00 Metoclopramide HCl (Reglan) 5 mg PRN BID PRN PO NAUSEA; Start 08/14/16 at 16:45 Sacubitril/ Valsartan (Entresto 24 Mg-26 Mg) 1 tab BID PO Last administered on 08/15/16 09:34; Start 08/14/16 at 21:00 Warfarin Sodium (Coumadin) 2.5 mg DAILY16 PO Last administered on 08/14/16 18: 50; Start 08/14/16 at 18:00; Stop 08/15/16 at 14:13; Status DC Warfarin Sodium (Coumadin Per Physician) 1 each PRN DAILY PRN MC SEE COMMENTS; Start 08/14/16 at 17:15; Stop 08/15/16 at 09:54; Status DC Sodium Polystyrene Sulfonate (Kayexalate) 60 gm 1X ONCE PO Last administered on 08/14/16 18:51; Start 08/14/16 at 18:30; Stop 08/14/16 at 18:31; Status DC Warfarin Sodium (Coumadin Per Pharmacy) 1 each PRN DAILY PRN MC SEE COMMENTS Last administered on 08/15/16 14:10; Start 08/15/16 at 10:00 Pantoprazole Sodium 40 mg 40 mg DAILYAC PO Last administered on 08/15/16 11:38 ; Start 08/15/16 at 11:30 Dobutamine HCl/ Dextrose 250 ml @ 0 mls/hr CONT PRN IV ; Start 08/15/16 at 14:00 ; Stop 08/15/16 at 14:53; Status DC Albumin Human (Albuminar) 100 ml @ 100 mls/hr 1X ONCE IV ; Start 08/15/16 at 14 :00; Stop 08/15/16 at 14:59; Status DC Furosemide 40 mg 40 mg 1X ONCE IVP ; Start 08/15/16 at 15:00; Stop 08/15/16 at 15 :01; Status DC Albumin Human (Albuminar) 100 ml @ 100 mls/hr 1X ONCE IV ; Start 08/16/16 at 09 :00; Stop 08/16/16 at 09:59 Furosemide (Lasix) 40 mg 1X ONCE IVP ; Start 08/16/16 at 10:00; Stop 08/16/16 at 10:01 Warfarin Sodium 4 mg 4 mg 1X WARF ONCE PO ; Start 08/15/16 at 16:00; Stop at 16:01 Dobutamine HCl/ Dextrose 250 ml @ 0 mls/hr CONT PRN PRN IV SEE I/O RECORD Last administered on 08/15/16t 14:59; Start 08/15/16 at 14:53 Active Scripts Active Entresto 24 mg-26 mg Tablet (Sacubitril/Valsartan) 1 Each Tablet 1 Tab PO BID Coumadin (Warfarin Sodium) 2.5 Mg Tablet 2.5 Mg PO DAILY16 Reported Reglan (Metoclopramide Hcl) 10 Mg Tablet 5 Mg PO PRN BID PRN Atorvastatin Calcium 40 Mg Tablet 1 Tab PO DAILY Colestid (Colestipol Hcl) 1 Gm Tablet 1 Gm PO TID Pacerone (Amiodarone Hcl) 200 Mg Tablet 200 Mg PO DAILY Lasix (Furosemide) 80 Mg Tablet 1 Tab PO BID Gabapentin 100 Mg Capsule 1 Cap PO TID Aspir 81 (Aspirin) 81 Mg Tablet.dr 1 Tab PO DAILY Coreg (Carvedilol) 6.25 Mg Tablet 1 Tab PO BID K-Tab ER (Potassium Chloride) 20 Meq Tablet.er 20 Meq PO BID Allergies Allergies: Coded Allergies: Iodinated Contrast Media - Oral and (Verified Allergy, Intermediate, ) lactose (Verified Allergy, Intermediate, 07/24/16) strawberry (Verified Allergy, Intermediate, 06/10/15) ROS Review of System GEN: no Fevers no Chills Weakness and Fatigue EYES: no Visual Complaints ENT: no EN Drainage no Hearing deficiets CVS: no Orthopnea no CP RESP: no SOB no SEGOVIA GI: no Nausea no Vomiting : no Dysuria no Urgency Dec Uo and Dark HEME: no easy bruising no Palp Ly Nodes NEURO no Focal Weakness no Sz PSYCH: no Suicidal Ideation no Depression SKIN: no Rashes ENDO: no Polyuria or Polydipsia no Hot/Cold Intolerance MU SK: occ Arthraigia no Myalgia Physical Exam Physical Exam General Appearance: Awake Alert Oriented x 3 In no Distress Eyes: VIsion Unchanged Conjunctiva Normal EN: No EN Drainage Mucous Memb. moist Neck: no JVD + JVP Supple no Thyromegaly CVS: S1 S2 + Murmur No Gallop No Rub tr Edema Resp: no Rales no Rhonchi no Acc. Muscle use GI: BAS +ve NO Bruit Non Tender Non Distended : no CVA tenderness; no Suprapubic Tenderness SKIN: no Rashes Breast Exam deferred Mu.Sk: Adequate ROM no Muscle Atrophy Heme: Unable to palpate Obvious LAD no palp Splenomegaly NEURO: Good Strength and Tone Cranial Nerves II - XII grossly intact Psych: not Depressed no Active hallucination Vital Signs Vital Signs Date Time Temp Pulse Resp B/P Pulse Ox O2 Delivery O2 Flow Rate FiO2 08/15/16 11:10 98.5 64 18 113/67 88 Room Air 98.5 Assessment & Plan ARF: Current FLuid and E-lyte status does not necessitate emergent need for Dialysis. Will re-evaluate for Dialysis in am; creat is improving. May need HD on Wednesday if no further improvemnt Anemia: check Iron, may need Epogen Transfuse as needed. HTN: Current BP meds reviewed. See orders for changes. Met Acidosis WAGMA - IV BIcarb ^K - IV BICarb Vol dpeeltion - unable to use aggressive IVF due to Sev Bi V CHF BiV Dil Cmyoaphty - ? End stage cardiomyopahty - ? Need for Continuous Dobutamin gtt as OP. Discussed Plan of Care and prognosis etc. at length with family. Labs Labs Laboratory Tests Test 08/14/16 17:15 08/14/16 18:09 08/14/16 20:31 08/15/16 05:00 White Blood Count 4.6x10^3/uL (4.0-11.0) 4.8x10^3/uL (4.0-11.0) Red Blood Count 4.30x10^6/uL (4.30-5.70) 4.24x10^6/uL (4.30-5.70) Hemoglobin 10.7g/dL (13.0-17.5) 10.6g/dL (13.0-17.5) Hematocrit 34.9% (39.0-53.0) 33.5% (39.0-53.0) Mean Corpuscular Volume 81fL (79-100) 79fL (79-100) Mean Corpuscular Hemoglobin 25pg (25-35) 25pg (25-35) Mean Corpuscular Hemoglobin Concent 31g/dL (31-37) 32g/dL (31-37) Red Cell Distribution Width 19.8% (11.5-14.5) 19.5% (11.5-14.5) Platelet Count 132x10^3/uL (140-400) 139x10^3/uL (140-400) Neutrophils (%) (Auto) 74% (31-73) 66% (31-73) Lymphocytes (%) (Auto) 15% (24-48) 16% (24-48) Monocytes (%) (Auto) 10% (0-9) 14% (0-9) Eosinophils (%) (Auto) 1% (0-3) 3% (0-3) Basophils (%) (Auto) 1% (0-3) 1% (0-3) Neutrophils # (Auto) 3.4x10^3uL (1.8-7.7) 3.2x10^3uL (1.8-7.7) Lymphocytes # (Auto) 0.7x10^3/uL (1.0-4.8) 0.8x10^3/uL (1.0-4.8) Monocytes # (Auto) 0.4x10^3/uL (0.0-1.1) 0.7x10^3/uL (0.0-1.1) Eosinophils # (Auto) 0.0x10^3/uL (0.0-0.7) 0.1x10^3/uL (0.0-0.7) Basophils # (Auto) 0.0x10^3/uL (0.0-0.2) 0.0x10^3/uL (0.0-0.2) Prothrombin Time 17.3SEC (11.7-14.0) Prothromb Time International Ratio 1.5 (0.8-1.1) Sodium Level 133mmol/L (136-145) 137mmol/L (136-145) Potassium Level 6.6mmol/L (3.5-5.1) 5.2mmol/L (3.5-5.1) Chloride Level 101mmol/L (98-107) 103mmol/L (98-107) Carbon Dioxide Level 16mmol/L (21-32) 18mmol/L (21-32) Anion Gap 16 (6-14) 16 (6-14) Blood Urea Nitrogen 142mg/dL (8-26) 141mg/dL (8-26) Creatinine 3.8mg/dL (0.7-1.3) 3.6mg/dL (0.7-1.3) Estimated GFR (Cockcroft-Gault) 19.0 20.2 BUN/Creatinine Ratio 37 (6-20) Glucose Level 136mg/dL (70-99) 123mg/dL (70-99) Calcium Level 9.2mg/dL (8.5-10.1) 8.9mg/dL (8.5-10.1) Total Bilirubin 0.5mg/dL (0.2-1.0) Aspartate Amino Transf (AST/SGOT) 52U/L (15-37) Alanine Aminotransferase (ALT/SGPT) 55U/L (16-63) Alkaline Phosphatase 111U/L (46-116) Total Protein 7.3g/dL (6.4-8.2) Albumin 3.4g/dL (3.4-5.0) Albumin/Globulin Ratio 0.9 (1.0-1.7) Glucose (Fingerstick) 119mg/dL (70-99) 123mg/dL (70-99) Test 08/15/16 07:53 08/15/16 11:00 08/15/16 12:18 Glucose (Fingerstick) 135mg/dL (70-99) 128mg/dL (70-99) Urine Collection Type Unknown Urine Color Yellow Urine Clarity Cloudy Urine pH 5.0 Urine Specific [place] 1.015 Urine Protein Negativemg/dL (NEG-TRACE) Urine Glucose (UA) Negativemg/dL (NEG) Urine Ketones (Stick) Negativemg/dL (NEG) Urine Blood Trace (NEG) Urine Nitrite Negative (NEG) Urine Bilirubin Negative (NEG) Urine Urobilinogen Dipstick 0.2mg/dL (0.2 mg/dL) Urine Leukocyte Esterase Large (NEG) Urine RBC Fobs/HPF (0-2) Urine WBC Tntc/HPF (0-4) Urine Squamous Epithelial Cells Mod/LPF Urine Bacteria Many/HPF (0-FEW) Urine Mucus Mod/LPF Laboratory Tests Test 08/14/16 17:15 08/14/16 18:09 08/14/16 20:31 08/15/16 05:00 White Blood Count 4.6x10^3/uL (4.0-11.0) 4.8x10^3/uL (4.0-11.0) Red Blood Count 4.30x10^6/uL (4.30-5.70) 4.24x10^6/uL (4.30-5.70) Hemoglobin 10.7g/dL (13.0-17.5) 10.6g/dL (13.0-17.5) Hematocrit 34.9% (39.0-53.0) 33.5% (39.0-53.0) Mean Corpuscular Volume 81fL (79-100) 79fL (79-100) Mean Corpuscular Hemoglobin 25pg (25-35) 25pg (25-35) Mean Corpuscular Hemoglobin Concent 31g/dL (31-37) 32g/dL (31-37) Red Cell Distribution Width 19.8% (11.5-14.5) 19.5% (11.5-14.5) Platelet Count 132x10^3/uL (140-400) 139x10^3/uL (140-400) Neutrophils (%) (Auto) 74% (31-73) 66% (31-73) Lymphocytes (%) (Auto) 15% (24-48) 16% (24-48) Monocytes (%) (Auto) 10% (0-9) 14% (0-9) Eosinophils (%) (Auto) 1% (0-3) 3% (0-3) Basophils (%) (Auto) 1% (0-3) 1% (0-3) Neutrophils # (Auto) 3.4x10^3uL (1.8-7.7) 3.2x10^3uL (1.8-7.7) Lymphocytes # (Auto) 0.7x10^3/uL (1.0-4.8) 0.8x10^3/uL (1.0-4.8) Monocytes # (Auto) 0.4x10^3/uL (0.0-1.1) 0.7x10^3/uL (0.0-1.1) Eosinophils # (Auto) 0.0x10^3/uL (0.0-0.7) 0.1x10^3/uL (0.0-0.7) Basophils # (Auto) 0.0x10^3/uL (0.0-0.2) 0.0x10^3/uL (0.0-0.2) Prothrombin Time 17.3SEC (11.7-14.0) Prothromb Time International Ratio 1.5 (0.8-1.1) Sodium Level 133mmol/L (136-145) 137mmol/L (136-145) Potassium Level 6.6mmol/L (3.5-5.1) 5.2mmol/L (3.5-5.1) Chloride Level 101mmol/L (98-107) 103mmol/L (98-107) Carbon Dioxide Level 16mmol/L (21-32) 18mmol/L (21-32) Anion Gap 16 (6-14) 16 (6-14) Blood Urea Nitrogen 142mg/dL (8-26) 141mg/dL (8-26) Creatinine 3.8mg/dL (0.7-1.3) 3.6mg/dL (0.7-1.3) Estimated GFR (Cockcroft-Gault) 19.0 20.2 BUN/Creatinine Ratio 37 (6-20) Glucose Level 136mg/dL (70-99) 123mg/dL (70-99) Calcium Level 9.2mg/dL (8.5-10.1) 8.9mg/dL (8.5-10.1) Total Bilirubin 0.5mg/dL (0.2-1.0) Aspartate Amino Transf (AST/SGOT) 52U/L (15-37) Alanine Aminotransferase (ALT/SGPT) 55U/L (16-63) Alkaline Phosphatase 111U/L (46-116) Total Protein 7.3g/dL (6.4-8.2) Albumin 3.4g/dL (3.4-5.0) Albumin/Globulin Ratio 0.9 (1.0-1.7) Glucose (Fingerstick) 119mg/dL (70-99) 123mg/dL (70-99) Test 08/15/16 07:53 08/15/16 11:00 08/15/16 12:18 Glucose (Fingerstick) 135mg/dL (70-99) 128mg/dL (70-99) Urine Collection Type Unknown Urine Color Yellow Urine Clarity Cloudy Urine pH 5.0 Urine Specific [place] 1.015 Urine Protein Negativemg/dL (NEG-TRACE) Urine Glucose (UA) Negativemg/dL (NEG) Urine Ketones (Stick) Negativemg/dL (NEG) Urine Blood Trace (NEG) Urine Nitrite Negative (NEG) Urine Bilirubin Negative (NEG) Urine Urobilinogen Dipstick 0.2mg/dL (0.2 mg/dL) Urine Leukocyte Esterase Large (NEG) Urine RBC Fobs/HPF (0-2) Urine WBC Tntc/HPF (0-4) Urine Squamous Epithelial Cells Mod/LPF Urine Bacteria Many/HPF (0-FEW) Urine Mucus Mod/LPF Images Images 1. Elevated renal resistive indices, a finding which can be seen with intrinsic renal disease. 2. Bilateral renal cysts, the largest of which measures 3.5 cm on the left. This largest cyst appears simple and is slightly increased compared to the prior study. The smaller left renal cyst is not seen on the prior study and may contain debris. The right renal cyst is not significant changed. ALLI SELBY MD Aug 15, 2016 15:23
[2016-08-15] MEDS ORDERED: MAGNESIUM SULFATE 2GM 50 ML IV PRN (15:30)
[2016-08-15] MEDS ORDERED: WARFARIN 4 MG TABLET. PO ONE (16:00)
[2016-08-15] MEDS: SODIUM BICARB ADULT 8.4% 50 MEQ/50 ML DISP.SYRIN. IV SCH ×2 (16:22→18:20)
[2016-08-15] MEDS: ATORVASTATIN CALCIUM 40 MG TABLET. PO SCH (20:24)
[2016-08-16] VITALS (7 sets, daily range): BP systolic 89–115; BP diastolic 54–65
--- NOTE | 2016-08-16 00:39 | CONS ---
DATE OF CONSULTATION: HISTORY OF PRESENT ILLNESS: The patient is a pleasant 71-year-old female somewhat dark skinned is known to have severe dilated biventricular failure with mild to moderate mitral regurg and a PA pressure of 51. She had blood work done for Dr. Garcia at his office, she was noted to be hyperkalemic. She was noted to be in renal failure and she was made a direct admit to the hospital thereafter. Her potassium was noted to be 6.6 on the and on presentation here, her labs were not available at the time when I was consulted. Standing Kayexalate orders were given. BUN is 142, creatinine 3.8. She denies lack of appetite, nausea, vomiting, etc. at this time and is not feeling too bad. She noticed that about a week ago, her urine had turned dark, she was not peeing as much. She has minimal orthostasis otherwise has been feeling okay. In this setting, she was admitted to the hospital. She denies diarrhea. For rest of the details, see electronic records. ALLI SELBY MD DR: BIBI/david JOB#: [id number] / [id number]
--- NOTE | 2016-08-16 07:16 | PDOC ---
SUBJECTIVE ROS SONA doign and feeling ok on gtt CVS: no Orthopnea, no CP RESP: no SOB, no SEGOVIA GI: no Nausea, no Vomiting : no Dysuria, no Urgency OBJECTIVE Vital Signs Vital Signs Date Time Temp Pulse Resp B/P Pulse Ox O2 Delivery O2 Flow Rate FiO2 08/16/16 03:14 74 115/65 98 Nasal Cannula 2.0 08/15/16 23:31 98.2 18 98.2 I & 0 Intake and Output 08/16/16 07:00 Intake Total 2149.7 ml Output Total 1250 ml Balance 899.7 ml Intake Oral 1600 ml IV Total 549.7 ml Output Urine Total 1250 ml PHYSICAL EXAM Physical Exam General Appearance: Awake Alert Oriented x 3 In no Distress Eyes: VIsion Unchanged Conjunctiva Normal EN: No EN Drainage Mucous Memb. moist Neck: no JVD + JVP Supple no Thyromegaly CVS: S1 S2 + Murmur No Gallop No Rub tr Edema Resp: no Rales no Rhonchi no Acc. Muscle use GI: BAS +ve NO Bruit Non Tender Non Distended : no CVA tenderness; no Suprapubic Tenderness Assessment & Plan ARF: Current FLuid and E-lyte status does not necessitate emergent need for Dialysis. Will re-evaluate for Dialysis in am; creat is improving. May need HD on Wednesday if no further improvement. Await labs Anemia: check Iron, may need Epogen Transfuse as needed. HTN: Current BP meds reviewed. See orders for changes. Met Acidosis WAGMA - IV BIcarb done. await labs ^K - IV BICarb Vol dpeeltion - unable to use aggressive IVF due to Sev Bi V CHF, Uo is acceptable BiV Dil Cmyoaphty - ? End stage cardiomyopathy - ? Need for Continuous Dobutamine gtt as OP. Discussed Plan of Care and prognosis etc. at length withpt. COMMENT/RELEVANT DATA Meds Current Medications Medications (Trade) Dose Ordered Sig/Fernando Start Time Stop Time Status Last Admin Dose Admin Albumin Human (Albuminar) 100 ml @ 100 mls/hr 1X ONCE 08/16/16 09:00 08/16/16 09:59 Amiodarone HCl (Cordarone) 200 mg DAILY 08/15/16 09:00 08/15/16 09:32 200 MG Aspirin (Ecotrin) 81 mg DAILY 08/15/16 09:00 08/15/16 09:33 81 MG Atorvastatin Calcium (Lipitor) 40 mg QHS 08/14/16 21:00 08/15/16 20:24 40 MG Carvedilol (Coreg) 6.25 mg BIDWMEALS 08/14/16 17:30 08/15/16 16:33 6.25 MG Colestipol HCl (Colestid) 1 gm TID 08/14/16 21:00 08/15/16 20:24 1 GM Dextrose 12.5 gm 12.5 gm PRN Q15MIN PRN 08/14/16 16:45 Dobutamine HCl/ Dextrose 250 ml @ 0 mls/hr CONT PRN PRN 08/15/16 14:53 08/15/16 14:59 10.7 MLS/HR Furosemide (Lasix) 40 mg 1X ONCE 08/16/16 10:00 08/16/16 10:01 Furosemide 40 mg 40 mg 1X ONCE 08/15/16 15:00 08/15/16 15:01 DC 08/15/16 16:22 40 MG Insulin Aspart (Novolog) 0-5 UNITS TIDWMEALS 08/14/16 17:30 Magnesium Sulfate/ Dextrose (Magnesium Sulfate PREMIX 2GM) 50 ml @ 25 mls/hr PRN DAILY PRN 08/15/16 15:30 Metoclopramide HCl (Reglan) 5 mg PRN BID PRN 08/14/16 16:45 Pantoprazole Sodium (Protonix) 40 mg DAILYAC 08/15/16 11:30 08/15/16 11:38 40 MG Sacubitril/ Valsartan (Entresto 24 Mg-26 Mg) 1 tab BID 08/14/16 21:00 08/15/16 20:24 1 TAB Sodium Bicarbonate 50 meq 50 meq Q2HR 08/15/16 16:00 08/15/16 18:30 DC 08/15/16 18:20 50 MEQ Sodium Polystyrene Sulfonate (Kayexalate) 60 gm 1X ONCE 08/14/16 18:30 08/14/16 18:31 DC 08/14/16 18:51 60 GM Sodium Chloride (Iv Sodium Chloride 0.9% 1000ml Bag) 1,000 ml @ 100 mls/hr Q10H 08/14/16 17:30 08/15/16 03:29 DC 08/14/16 18:53 100 MLS/HR Warfarin Sodium (Coumadin Per Pharmacy) 1 each PRN DAILY PRN 08/15/16 10:00 08/15/16 14:10 1 EACH Warfarin Sodium (Coumadin Per Physician) 1 each PRN DAILY PRN 08/14/16 17:15 08/15/16 09:54 DC Warfarin Sodium (Coumadin) 2.5 mg DAILY16 08/14/16 18:00 08/15/16 14:13 DC 08/14/16 18:50 2.5 MG Warfarin Sodium 4 mg 4 mg 1X WARF ONCE 08/15/16 16:00 08/15/16 16:01 DC 08/15/16 16:33 4 MG Lab Laboratory Tests Test 08/15/16 07:53 08/15/16 11:00 08/15/16 12:18 08/15/16 17:01 Glucose (Fingerstick) 135mg/dL (70-99) 128mg/dL (70-99) 115mg/dL (70-99) Urine Collection Type Unknown Urine Color Yellow Urine Clarity Cloudy Urine pH 5.0 Urine Specific [place] 1.015 Urine Protein Negativemg/dL (NEG-TRACE) Urine Glucose (UA) Negativemg/dL (NEG) Urine Ketones (Stick) Negativemg/dL (NEG) Urine Blood Trace (NEG) Urine Nitrite Negative (NEG) Urine Bilirubin Negative (NEG) Urine Urobilinogen Dipstick 0.2mg/dL (0.2 mg/dL) Urine Leukocyte Esterase Large (NEG) Urine RBC Fobs/HPF (0-2) Urine WBC Tntc/HPF (0-4) Urine Squamous Epithelial Cells Mod/LPF Urine Bacteria Many/HPF (0-FEW) Urine Mucus Mod/LPF ALLI SELBY MD Aug 16, 2016 07:16
[2016-08-16] MEDS: INSULIN ASPART 300 UNITS/3 ML INSULN.PEN SQ SCH ×3 (07:35→17:00)
[2016-08-16] MEDS: CARVEDILOL 6.25 MG TABLET. PO SCH ×2 (07:45→17:28)
[2016-08-16] MEDS: PANTOPRAZOLE 40 MG TABLET.DR. PO SCH (07:45)
[2016-08-16] MEDS: ASPIRIN ENTERIC COATED 81 MG TABLET.DR. PO SCH (08:49)
[2016-08-16] MEDS: COLESTIPOL HCL 1 GM TABLET PO SCH ×3 (08:50→20:49)
[2016-08-16] MEDS: AMIODARONE HCL 200 MG TABLET. PO SCH (08:50)
[2016-08-16] MEDS: SACUBITRIL/VALSARTAN 24/26MG TABLET. PO SCH ×2 (08:50→20:49)
[2016-08-16] MEDS ORDERED: ALBUMIN HUMAN 25% 100 ML IV ONE (09:00)
[2016-08-16] MEDS ORDERED: FUROSEMIDE 40 MG/4 ML VIAL. IVP ONE (10:00)
[2016-08-16 10:14] LABS: BASO % 1 % (0-3); EOS % 3 % (0-3); HEMATOCRIT 30.1 % (39.0-53.0); HEMOGLOBIN 9.6 g/dL (13.0-17.5); LYMPH # 0.7 x10^3/uL (1.0-4.8); LYMPH % 12 % (24-48); MEAN CORPUSCULAR HEMOGLOBIN 25 pg (25-35); MEAN CORPUSCULAR HGB CONC 32 g/dL (31-37); MEAN CORPUSCULAR VOLUME 78 fL (79-100); MONO % 11 % (0-9); NEUT % 74 % (31-73); PLATELET COUNT 115 x10^3/uL (140-400); RED BLOOD COUNT 3.86 x10^6/uL (4.30-5.70); RED CELL DISTRIBUTION WIDTH 18.8 % (11.5-14.5); WHITE BLOOD COUNT 5.4 x10^3/uL (4.0-11.0)
[2016-08-16 10:22] LABS: INR 1.6 (0.8-1.1); PROTHROMBIN TIME PATIENT 18.5 SEC (11.7-14.0)
--- NOTE | 2016-08-16 10:24 | PDOC ---
IM PROGRESS NOTES- Subjective Subjective no dyspnea,chest pain.Feels shaky,weak. Objective Vitals Vital Signs Date Time Temp Pulse Resp B/P Pulse Ox O2 Delivery O2 Flow Rate FiO2 08/16/16 08:50 73 110/64 08/16/16 08:05 Nasal Cannula 2.0 08/16/16 07:06 18 95 08/15/16 23:31 98.2 98.2 Input & Output Intake and Output 08/16/16 06:59 Intake Total 2149.7 ml Output Total 1250 ml Balance 899.7 ml Intake Oral 1600 ml IV Total 549.7 ml Output Urine Total 1250 ml Physical Exam Physical Exam General appearance - alert,well appearing, and in no distress and oriented to person, place, and time Mental Status - alert, oriented to person, place, and time, affect appropriate to mood Head - normal Chest - clear to auscultation, no wheezes, rales or rhonchi, symmetric air entry Heart - S1 and S2 normal Abdomen - soft, nontender, nondistended, no masses or organomegaly Neurological - alert and oriented,tremors+ Musculoskeletal - no muscular tenderness noted Extremities - no pedal edema Skin - warm and dry Labs Laboratory Tests Test 08/14/16 17:15 08/14/16 18:09 08/14/16 20:31 08/15/16 05:00 White Blood Count 4.6x10^3/uL (4.0-11.0) 4.8x10^3/uL (4.0-11.0) Red Blood Count 4.30x10^6/uL (4.30-5.70) 4.24x10^6/uL (4.30-5.70) Hemoglobin 10.7g/dL (13.0-17.5) 10.6g/dL (13.0-17.5) Hematocrit 34.9% (39.0-53.0) 33.5% (39.0-53.0) Mean Corpuscular Volume 81fL (79-100) 79fL (79-100) Mean Corpuscular Hemoglobin 25pg (25-35) 25pg (25-35) Mean Corpuscular Hemoglobin Concent 31g/dL (31-37) 32g/dL (31-37) Red Cell Distribution Width 19.8% (11.5-14.5) 19.5% (11.5-14.5) Platelet Count 132x10^3/uL (140-400) 139x10^3/uL (140-400) Neutrophils (%) (Auto) 74% (31-73) 66% (31-73) Lymphocytes (%) (Auto) 15% (24-48) 16% (24-48) Monocytes (%) (Auto) 10% (0-9) 14% (0-9) Eosinophils (%) (Auto) 1% (0-3) 3% (0-3) Basophils (%) (Auto) 1% (0-3) 1% (0-3) Neutrophils # (Auto) 3.4x10^3uL (1.8-7.7) 3.2x10^3uL (1.8-7.7) Lymphocytes # (Auto) 0.7x10^3/uL (1.0-4.8) 0.8x10^3/uL (1.0-4.8) Monocytes # (Auto) 0.4x10^3/uL (0.0-1.1) 0.7x10^3/uL (0.0-1.1) Eosinophils # (Auto) 0.0x10^3/uL (0.0-0.7) 0.1x10^3/uL (0.0-0.7) Basophils # (Auto) 0.0x10^3/uL (0.0-0.2) 0.0x10^3/uL (0.0-0.2) Prothrombin Time 17.3SEC (11.7-14.0) Prothromb Time International Ratio 1.5 (0.8-1.1) Sodium Level 133mmol/L (136-145) 137mmol/L (136-145) Potassium Level 6.6mmol/L (3.5-5.1) 5.2mmol/L (3.5-5.1) Chloride Level 101mmol/L (98-107) 103mmol/L (98-107) Carbon Dioxide Level 16mmol/L (21-32) 18mmol/L (21-32) Anion Gap 16 (6-14) 16 (6-14) Blood Urea Nitrogen 142mg/dL (8-26) 141mg/dL (8-26) Creatinine 3.8mg/dL (0.7-1.3) 3.6mg/dL (0.7-1.3) Estimated GFR (Cockcroft-Gault) 19.0 20.2 BUN/Creatinine Ratio 37 (6-20) Glucose Level 136mg/dL (70-99) 123mg/dL (70-99) Calcium Level 9.2mg/dL (8.5-10.1) 8.9mg/dL (8.5-10.1) Total Bilirubin 0.5mg/dL (0.2-1.0) Aspartate Amino Transf (AST/SGOT) 52U/L (15-37) Alanine Aminotransferase (ALT/SGPT) 55U/L (16-63) Alkaline Phosphatase 111U/L (46-116) Total Protein 7.3g/dL (6.4-8.2) Albumin 3.4g/dL (3.4-5.0) Albumin/Globulin Ratio 0.9 (1.0-1.7) Glucose (Fingerstick) 119mg/dL (70-99) 123mg/dL (70-99) Test 08/15/16 07:53 08/15/16 11:00 08/15/16 12:18 08/15/16 17:01 Glucose (Fingerstick) 135mg/dL (70-99) 128mg/dL (70-99) 115mg/dL (70-99) Urine Collection Type Unknown Urine Color Yellow Urine Clarity Cloudy Urine pH 5.0 Urine Specific [place] 1.015 Urine Protein Negativemg/dL (NEG-TRACE) Urine Glucose (UA) Negativemg/dL (NEG) Urine Ketones (Stick) Negativemg/dL (NEG) Urine Blood Trace (NEG) Urine Nitrite Negative (NEG) Urine Bilirubin Negative (NEG) Urine Urobilinogen Dipstick 0.2mg/dL (0.2 mg/dL) Urine Leukocyte Esterase Large (NEG) Urine RBC Fobs/HPF (0-2) Urine WBC Tntc/HPF (0-4) Urine Squamous Epithelial Cells Mod/LPF Urine Bacteria Many/HPF (0-FEW) Urine Mucus Mod/LPF Test 08/16/16 07:18 08/16/16 10:00 Glucose (Fingerstick) 86mg/dL (70-99) White Blood Count 5.4x10^3/uL (4.0-11.0) Red Blood Count 3.86x10^6/uL (4.30-5.70) Hemoglobin 9.6g/dL (13.0-17.5) Hematocrit 30.1% (39.0-53.0) Mean Corpuscular Volume 78fL (79-100) Mean Corpuscular Hemoglobin 25pg (25-35) Mean Corpuscular Hemoglobin Concent 32g/dL (31-37) Red Cell Distribution Width 18.8% (11.5-14.5) Platelet Count 115x10^3/uL (140-400) Neutrophils (%) (Auto) 74% (31-73) Lymphocytes (%) (Auto) 12% (24-48) Monocytes (%) (Auto) 11% (0-9) Eosinophils (%) (Auto) 3% (0-3) Basophils (%) (Auto) 1% (0-3) Neutrophils # (Auto) 3.9x10^3uL (1.8-7.7) Lymphocytes # (Auto) 0.7x10^3/uL (1.0-4.8) Monocytes # (Auto) 0.6x10^3/uL (0.0-1.1) Eosinophils # (Auto) 0.1x10^3/uL (0.0-0.7) Basophils # (Auto) 0.0x10^3/uL (0.0-0.2) Laboratory Tests Test 08/15/16 11:00 08/15/16 12:18 08/15/16 17:01 08/16/16 07:18 Urine Collection Type Unknown Urine Color Yellow Urine Clarity Cloudy Urine pH 5.0 Urine Specific [place] 1.015 Urine Protein Negativemg/dL (NEG-TRACE) Urine Glucose (UA) Negativemg/dL (NEG) Urine Ketones (Stick) Negativemg/dL (NEG) Urine Blood Trace (NEG) Urine Nitrite Negative (NEG) Urine Bilirubin Negative (NEG) Urine Urobilinogen Dipstick 0.2mg/dL (0.2 mg/dL) Urine Leukocyte Esterase Large (NEG) Urine RBC Fobs/HPF (0-2) Urine WBC Tntc/HPF (0-4) Urine Squamous Epithelial Cells Mod/LPF Urine Bacteria Many/HPF (0-FEW) Urine Mucus Mod/LPF Glucose (Fingerstick) 128mg/dL (70-99) 115mg/dL (70-99) 86mg/dL (70-99) Test 08/16/16 10:00 White Blood Count 5.4x10^3/uL (4.0-11.0) Red Blood Count 3.86x10^6/uL (4.30-5.70) Hemoglobin 9.6g/dL (13.0-17.5) Hematocrit 30.1% (39.0-53.0) Mean Corpuscular Volume 78fL (79-100) Mean Corpuscular Hemoglobin 25pg (25-35) Mean Corpuscular Hemoglobin Concent 32g/dL (31-37) Red Cell Distribution Width 18.8% (11.5-14.5) Platelet Count 115x10^3/uL (140-400) Neutrophils (%) (Auto) 74% (31-73) Lymphocytes (%) (Auto) 12% (24-48) Monocytes (%) (Auto) 11% (0-9) Eosinophils (%) (Auto) 3% (0-3) Basophils (%) (Auto) 1% (0-3) Neutrophils # (Auto) 3.9x10^3uL (1.8-7.7) Lymphocytes # (Auto) 0.7x10^3/uL (1.0-4.8) Monocytes # (Auto) 0.6x10^3/uL (0.0-1.1) Eosinophils # (Auto) 0.1x10^3/uL (0.0-0.7) Basophils # (Auto) 0.0x10^3/uL (0.0-0.2) Meds Current Medications Albumin Human (Albuminar) 100 ml @ 100 mls/hr 1X ONCE IV Last administered on 08/15/16 15:25; Start 08/15/16 at 14:00; Stop 08/15/16 at 14:59; Status DC Albumin Human (Albuminar) 100 ml @ 100 mls/hr 1X ONCE IV Last administered on 08/16/16 08:41; Start 08/16/16 at 09:00; Stop 08/16/16 at 09:59; Status DC Dobutamine HCl/ Dextrose 250 ml @ 0 mls/hr CONT PRN IV ; Start 08/15/16 at 14:00 ; Stop 08/15/16 at 14:53; Status DC Dobutamine HCl/ Dextrose 250 ml @ 0 mls/hr CONT PRN PRN IV SEE I/O RECORD Last administered on 08/15/16 14:59; Start 08/15/16 at 14:53 Furosemide (Lasix) 40 mg 1X ONCE IVP Last administered on 08/16/16 09:45; Start 08/16/16 at 10:00; Stop 08/16/16 at 10:01; Status DC Furosemide 40 mg 40 mg 1X ONCE IVP Last administered on 08/15/16 16:22; Start 08/15/16 at 15:00; Stop 08/15/16 at 15:01; Status DC Magnesium Sulfate/ Dextrose (Magnesium Sulfate PREMIX 2GM) 50 ml @ 25 mls/hr PRN DAILY PRN IV for Mag < 1.7 on am labs; Start 08/15/16 at 15:30 Pantoprazole Sodium 40 mg 40 mg DAILYAC PO Last administered on 08/16/16 07:45 ; Start 08/15/16 at 11:30 Sodium Bicarbonate 50 meq 50 meq Q2HR IV Last administered on 08/15/16 18:20; Start 08/15/16 at 16:00; Stop 08/15/16 at 18:30; Status DC Warfarin Sodium 4 mg 4 mg 1X WARF ONCE PO Last administered on 08/15/16 16:33 ; Start 08/15/16 at 16:00; Stop 08/15/16 at 16:01; Status DC Assessment Assessment 1. ARF with CKD II ATN SONA 2. a/c systolic CHF ICM EF 10% AICD 3. HTN 4. DM II with CKD II diet control 5. hyperlipidemia 6. mild to mod MR 7. moderate pulmonary HTN 8. severe weakness and debility 9. metabolic encephalopathy POA 10. moderate chronic PCL malnutrition PLAN CHF cardiology consult continue enestro On IV Dobutamine. Weight last discharge 150.37 Admit wt 157.5 ARF with CKD renal consult lasix as needed Labs pending. DM II FSBS/low intensity SSI DVT/GI prophylaxis SCD/Yeison warfarin per pharmacy pepcid Anemia- hb decresed to 9.6. Tremors- off Gabapentin.? due to ARF,CKD. Weakness- PT/OT. Plan Plan Hyperkalemia- improving. D/w multiple family members. The patient was seen and examined by me. Chart reviewed and plan of care formulated. Discussed with, reviewed and agree with WE[employer] OPERATOR's notes, plan of care and orders with modifications as necessary. For more details regarding further plans, please refer to the orders. MERON DELATORRE MD Aug 16, 2016 10:24
[2016-08-16 10:32] LABS: ALBUMIN 3.5 g/dL (3.4-5.0); ALBUMIN/GLOBULIN RATIO 1.1 (1.0-1.7); CALCIUM 8.4 mg/dL (8.5-10.1); CREATININE 3.3 mg/dL (0.7-1.3); GFR 22.3; PHOSPHORUS 5.1 mg/dL (2.6-4.7); POTASSIUM 3.7 mmol/L (3.5-5.1); TOTAL BILIRUBIN 0.7 mg/dL (0.2-1.0); TOTAL PROTEIN 6.7 g/dL (6.4-8.2)
--- NOTE | 2016-08-16 14:55 | PDOC ---
PROGRESS NOTES Subjective Subjective Patient feels better today. Labs slightly better. Objective Objective Vital Signs Date Time Temp Pulse Resp B/P Pulse Ox O2 Delivery O2 Flow Rate FiO2 08/16/16 10:30 98.4 73 16 106/65 98 Nasal Cannula 2.0 98.4 Intake and Output 08/16/16 06:59 Intake Total 2149.7 ml Output Total 1250 ml Balance 899.7 ml Intake Oral 1600 ml IV Total 549.7 ml Output Urine Total 1250 ml Physical Exam Physical Exam Moving air better. Abdomen seems to have calmed down some and is softer, apparently less ascites today. Extremities no edema Assessment Assessment The patient seems to have improved a little. She has an end-stage dilated cardiomyopathy with an ejection fraction of 10% and I think that she may need to continue with dobutamine drip infusions as an outpatient at least twice a week. But before deciding on that we'll need to see how she does as well as what's going to happen with her renal disease. Presently she is tracking sinus rhythm and pacing in the ventricle. The patient appears to be functioning normally. Problems Medical Problems: (1) Acute on chronic renal failure Status: Acute Comment Review of Relevant I have reviewed the following items marquise (where applicable) has been applied. Labs Laboratory Tests Test 08/14/16 17:15 08/14/16 18:09 08/14/16 20:31 08/15/16 05:00 White Blood Count 4.6x10^3/uL (4.0-11.0) 4.8x10^3/uL (4.0-11.0) Red Blood Count 4.30x10^6/uL (4.30-5.70) 4.24x10^6/uL (4.30-5.70) Hemoglobin 10.7g/dL (13.0-17.5) 10.6g/dL (13.0-17.5) Hematocrit 34.9% (39.0-53.0) 33.5% (39.0-53.0) Mean Corpuscular Volume 81fL (79-100) 79fL (79-100) Mean Corpuscular Hemoglobin 25pg (25-35) 25pg (25-35) Mean Corpuscular Hemoglobin Concent 31g/dL (31-37) 32g/dL (31-37) Red Cell Distribution Width 19.8% (11.5-14.5) 19.5% (11.5-14.5) Platelet Count 132x10^3/uL (140-400) 139x10^3/uL (140-400) Neutrophils (%) (Auto) 74% (31-73) 66% (31-73) Lymphocytes (%) (Auto) 15% (24-48) 16% (24-48) Monocytes (%) (Auto) 10% (0-9) 14% (0-9) Eosinophils (%) (Auto) 1% (0-3) 3% (0-3) Basophils (%) (Auto) 1% (0-3) 1% (0-3) Neutrophils # (Auto) 3.4x10^3uL (1.8-7.7) 3.2x10^3uL (1.8-7.7) Lymphocytes # (Auto) 0.7x10^3/uL (1.0-4.8) 0.8x10^3/uL (1.0-4.8) Monocytes # (Auto) 0.4x10^3/uL (0.0-1.1) 0.7x10^3/uL (0.0-1.1) Eosinophils # (Auto) 0.0x10^3/uL (0.0-0.7) 0.1x10^3/uL (0.0-0.7) Basophils # (Auto) 0.0x10^3/uL (0.0-0.2) 0.0x10^3/uL (0.0-0.2) Prothrombin Time 17.3SEC (11.7-14.0) Prothromb Time International Ratio 1.5 (0.8-1.1) Sodium Level 133mmol/L (136-145) 137mmol/L (136-145) Potassium Level 6.6mmol/L (3.5-5.1) 5.2mmol/L (3.5-5.1) Chloride Level 101mmol/L (98-107) 103mmol/L (98-107) Carbon Dioxide Level 16mmol/L (21-32) 18mmol/L (21-32) Anion Gap 16 (6-14) 16 (6-14) Blood Urea Nitrogen 142mg/dL (8-26) 141mg/dL (8-26) Creatinine 3.8mg/dL (0.7-1.3) 3.6mg/dL (0.7-1.3) Estimated GFR (Cockcroft-Gault) 19.0 20.2 BUN/Creatinine Ratio 37 (6-20) Glucose Level 136mg/dL (70-99) 123mg/dL (70-99) Calcium Level 9.2mg/dL (8.5-10.1) 8.9mg/dL (8.5-10.1) Total Bilirubin 0.5mg/dL (0.2-1.0) Aspartate Amino Transf (AST/SGOT) 52U/L (15-37) Alanine Aminotransferase (ALT/SGPT) 55U/L (16-63) Alkaline Phosphatase 111U/L (46-116) Total Protein 7.3g/dL (6.4-8.2) Albumin 3.4g/dL (3.4-5.0) Albumin/Globulin Ratio 0.9 (1.0-1.7) Glucose (Fingerstick) 119mg/dL (70-99) 123mg/dL (70-99) Test 08/15/16 07:53 08/15/16 11:00 08/15/16 12:18 08/15/16 17:01 Glucose (Fingerstick) 135mg/dL (70-99) 128mg/dL (70-99) 115mg/dL (70-99) Urine Collection Type Unknown Urine Color Yellow Urine Clarity Cloudy Urine pH 5.0 Urine Specific [place] 1.015 Urine Protein Negativemg/dL (NEG-TRACE) Urine Glucose (UA) Negativemg/dL (NEG) Urine Ketones (Stick) Negativemg/dL (NEG) Urine Blood Trace (NEG) Urine Nitrite Negative (NEG) Urine Bilirubin Negative (NEG) Urine Urobilinogen Dipstick 0.2mg/dL (0.2 mg/dL) Urine Leukocyte Esterase Large (NEG) Urine RBC Fobs/HPF (0-2) Urine WBC Tntc/HPF (0-4) Urine Squamous Epithelial Cells Mod/LPF Urine Bacteria Many/HPF (0-FEW) Urine Mucus Mod/LPF Test 08/16/16 07:18 08/16/16 10:00 08/16/16 11:49 Glucose (Fingerstick) 86mg/dL (70-99) 127mg/dL (70-99) White Blood Count 5.4x10^3/uL (4.0-11.0) Red Blood Count 3.86x10^6/uL (4.30-5.70) Hemoglobin 9.6g/dL (13.0-17.5) Hematocrit 30.1% (39.0-53.0) Mean Corpuscular Volume 78fL (79-100) Mean Corpuscular Hemoglobin 25pg (25-35) Mean Corpuscular Hemoglobin Concent 32g/dL (31-37) Red Cell Distribution Width 18.8% (11.5-14.5) Platelet Count 115x10^3/uL (140-400) Neutrophils (%) (Auto) 74% (31-73) Lymphocytes (%) (Auto) 12% (24-48) Monocytes (%) (Auto) 11% (0-9) Eosinophils (%) (Auto) 3% (0-3) Basophils (%) (Auto) 1% (0-3) Neutrophils # (Auto) 3.9x10^3uL (1.8-7.7) Lymphocytes # (Auto) 0.7x10^3/uL (1.0-4.8) Monocytes # (Auto) 0.6x10^3/uL (0.0-1.1) Eosinophils # (Auto) 0.1x10^3/uL (0.0-0.7) Basophils # (Auto) 0.0x10^3/uL (0.0-0.2) Prothrombin Time 18.5SEC (11.7-14.0) Prothromb Time International Ratio 1.6 (0.8-1.1) Sodium Level 139mmol/L (136-145) Potassium Level 3.7mmol/L (3.5-5.1) Chloride Level 104mmol/L (98-107) Carbon Dioxide Level 22mmol/L (21-32) Anion Gap 13 (6-14) Blood Urea Nitrogen 127mg/dL (8-26) Creatinine 3.3mg/dL (0.7-1.3) Estimated GFR (Cockcroft-Gault) 22.3 BUN/Creatinine Ratio 38 (6-20) Glucose Level 104mg/dL (70-99) Calcium Level 8.4mg/dL (8.5-10.1) Phosphorus Level 5.1mg/dL (2.6-4.7) Magnesium Level 2.2mg/dL (1.8-2.4) Total Bilirubin 0.7mg/dL (0.2-1.0) Aspartate Amino Transf (AST/SGOT) 36U/L (15-37) Alanine Aminotransferase (ALT/SGPT) 43U/L (16-63) Alkaline Phosphatase 88U/L (46-116) Total Protein 6.7g/dL (6.4-8.2) Albumin 3.5g/dL (3.4-5.0) Albumin/Globulin Ratio 1.1 (1.0-1.7) Laboratory Tests Test 08/15/16 17:01 08/16/16 07:18 08/16/16 10:00 08/16/16 11:49 Glucose (Fingerstick) 115mg/dL (70-99) 86mg/dL (70-99) 127mg/dL (70-99) White Blood Count 5.4x10^3/uL (4.0-11.0) Red Blood Count 3.86x10^6/uL (4.30-5.70) Hemoglobin 9.6g/dL (13.0-17.5) Hematocrit 30.1% (39.0-53.0) Mean Corpuscular Volume 78fL (79-100) Mean Corpuscular Hemoglobin 25pg (25-35) Mean Corpuscular Hemoglobin Concent 32g/dL (31-37) Red Cell Distribution Width 18.8% (11.5-14.5) Platelet Count 115x10^3/uL (140-400) Neutrophils (%) (Auto) 74% (31-73) Lymphocytes (%) (Auto) 12% (24-48) Monocytes (%) (Auto) 11% (0-9) Eosinophils (%) (Auto) 3% (0-3) Basophils (%) (Auto) 1% (0-3) Neutrophils # (Auto) 3.9x10^3uL (1.8-7.7) Lymphocytes # (Auto) 0.7x10^3/uL (1.0-4.8) Monocytes # (Auto) 0.6x10^3/uL (0.0-1.1) Eosinophils # (Auto) 0.1x10^3/uL (0.0-0.7) Basophils # (Auto) 0.0x10^3/uL (0.0-0.2) Prothrombin Time 18.5SEC (11.7-14.0) Prothromb Time International Ratio 1.6 (0.8-1.1) Sodium Level 139mmol/L (136-145) Potassium Level 3.7mmol/L (3.5-5.1) Chloride Level 104mmol/L (98-107) Carbon Dioxide Level 22mmol/L (21-32) Anion Gap 13 (6-14) Blood Urea Nitrogen 127mg/dL (8-26) Creatinine 3.3mg/dL (0.7-1.3) Estimated GFR (Cockcroft-Gault) 22.3 BUN/Creatinine Ratio 38 (6-20) Glucose Level 104mg/dL (70-99) Calcium Level 8.4mg/dL (8.5-10.1) Phosphorus Level 5.1mg/dL (2.6-4.7) Magnesium Level 2.2mg/dL (1.8-2.4) Total Bilirubin 0.7mg/dL (0.2-1.0) Aspartate Amino Transf (AST/SGOT) 36U/L (15-37) Alanine Aminotransferase (ALT/SGPT) 43U/L (16-63) Alkaline Phosphatase 88U/L (46-116) Total Protein 6.7g/dL (6.4-8.2) Albumin 3.5g/dL (3.4-5.0) Albumin/Globulin Ratio 1.1 (1.0-1.7) Microbiology 08/15/16 Urine Culture - Preliminary, Resulted 08/15/16 Urine Culture Result 1 (JV) - Preliminary, Resulted 08/15/16 Urine Culture Result 2 (JV) - Preliminary, Resulted Medications Current Medications Insulin Aspart (Novolog) 0-5 UNITS TIDWMEALS SQ ; Start 08/14/16 at 17:30 Dextrose 12.5 gm 12.5 gm PRN Q15MIN PRN IV SEE COMMENTS; Start 08/14/16 at 16: 45 Sodium Chloride (Iv Sodium Chloride 0.9% 1000ml Bag) 1,000 ml @ 100 mls/hr Q10H IV Last administered on 08/14/16 18:53; Start 08/14/16 at 17:30; Stop 08/15/16 at 03:29; Status DC Amiodarone HCl (Cordarone) 200 mg DAILY PO Last administered on 08/16/16 08:50 ; Start 08/15/16 at 09:00 Aspirin (Ecotrin) 81 mg DAILY PO Last administered on 08/16/16 08:49; Start 08/15/16 at 09:00 Atorvastatin Calcium (Lipitor) 40 mg QHS PO Last administered on 08/15/16 20:24 ; Start 08/14/16 at 21:00 Carvedilol (Coreg) 6.25 mg BIDWMEALS PO Last administered on 08/16/16 07:45; Start 08/14/16 at 17:30 Colestipol HCl (Colestid) 1 gm TID PO Last administered on 08/16/16 14:10; Start 08/14/16 at 21:00 Metoclopramide HCl (Reglan) 5 mg PRN BID PRN PO NAUSEA; Start 08/14/16 at 16:45 ; Stop 08/16/16 at 10:25; Status DC Sacubitril/ Valsartan (Entresto 24 Mg-26 Mg) 1 tab BID PO Last administered on 08/16/16 08:50; Start 08/14/16 at 21:00 Warfarin Sodium (Coumadin) 2.5 mg DAILY16 PO Last administered on 08/14/16 18: 50; Start 08/14/16 at 18:00; Stop 08/15/16 at 14:13; Status DC Warfarin Sodium (Coumadin Per Physician) 1 each PRN DAILY PRN MC SEE COMMENTS; Start 08/14/16 at 17:15; Stop 08/15/16 at 09:54; Status DC Sodium Polystyrene Sulfonate (Kayexalate) 60 gm 1X ONCE PO Last administered on 08/14/16 18:51; Start 08/14/16 at 18:30; Stop 08/14/16 at 18:31; Status DC Warfarin Sodium (Coumadin Per Pharmacy) 1 each PRN DAILY PRN MC SEE COMMENTS Last administered on 08/16/16 12:03; Start 08/15/16 at 10:00 Pantoprazole Sodium 40 mg 40 mg DAILYAC PO Last administered on 08/16/16 07:45 ; Start 08/15/16 at 11:30 Dobutamine HCl/ Dextrose 250 ml @ 0 mls/hr CONT PRN IV ; Start 08/15/16 at 14:00 ; Stop 08/15/16 at 14:53; Status DC Albumin Human (Albuminar) 100 ml @ 100 mls/hr 1X ONCE IV Last administered on 08/15/16 15:25; Start 08/15/16 at 14:00; Stop 08/15/16 at 14:59; Status DC Furosemide 40 mg 40 mg 1X ONCE IVP Last administered on 08/15/16 16:22; Start 08/15/16 at 15:00; Stop 08/15/16 at 15:01; Status DC Albumin Human (Albuminar) 100 ml @ 100 mls/hr 1X ONCE IV Last administered on 08/16/16 08:41; Start 08/16/16 at 09:00; Stop 08/16/16 at 09:59; Status DC Furosemide (Lasix) 40 mg 1X ONCE IVP Last administered on 08/16/16 09:45; Start 08/16/16 at 10:00; Stop 08/16/16 at 10:01; Status DC Warfarin Sodium 4 mg 4 mg 1X WARF ONCE PO Last administered on 08/15/16 16:33 ; Start 08/15/16 at 16:00; Stop 08/15/16 at 16:01; Status DC Dobutamine HCl/ Dextrose 250 ml @ 0 mls/hr CONT PRN PRN IV SEE I/O RECORD Last administered on 08/15/16 14:59; Start 08/15/16 at 14:53 Sodium Bicarbonate 50 meq 50 meq Q2HR IV Last administered on 08/15/16 18:20; Start 08/15/16 at 16:00; Stop 08/15/16 at 18:30; Status DC Magnesium Sulfate/ Dextrose (Magnesium Sulfate PREMIX 2GM) 50 ml @ 25 mls/hr PRN DAILY PRN IV for Mag < 1.7 on am labs; Start 08/15/16 at 15:30 Warfarin Sodium (Coumadin) 4 mg 1X WARF ONCE PO ; Start 08/16/16 at 16:00; Stop 08/16/16 at 16:01 Active Scripts Active Entresto 24 mg-26 mg Tablet (Sacubitril/Valsartan) 1 Each Tablet 1 Tab PO BID Coumadin (Warfarin Sodium) 2.5 Mg Tablet 2.5 Mg PO DAILY16 Reported Reglan (Metoclopramide Hcl) 10 Mg Tablet 5 Mg PO PRN BID PRN Atorvastatin Calcium 40 Mg Tablet 1 Tab PO DAILY Colestid (Colestipol Hcl) 1 Gm Tablet 1 Gm PO TID Pacerone (Amiodarone Hcl) 200 Mg Tablet 200 Mg PO DAILY Lasix (Furosemide) 80 Mg Tablet 1 Tab PO BID Gabapentin 100 Mg Capsule 1 Cap PO TID Aspir 81 (Aspirin) 81 Mg Tablet.dr 1 Tab PO DAILY Coreg (Carvedilol) 6.25 Mg Tablet 1 Tab PO BID K-Tab ER (Potassium Chloride) 20 Meq Tablet.er 20 Meq PO BID Vitals/I & O Vital Sign - Last 24 Hours 08/15/16 08/15/16 08/15/16 08/15/16 15:30 15:59 16:00 16:30 Temp 98.5 98.5 Pulse 74 Resp 20 B/P 114/60 115/66 113/66 109/60 Pulse Ox 98 O2 Delivery Nasal Cannula O2 Flow Rate 2.0 08/15/16 08/15/16 08/15/16 08/15/16 16:33 17:00 17:30 18:00 Pulse 62 B/P 109/60 115/66 112/70 105/64 08/15/16 08/15/16 08/15/16 08/15/16 18:30 18:55 20:00 20:24 Temp 97.5 97.5 Pulse 68 Resp 17 B/P 119/65 115/62 113/65 Pulse Ox 92 O2 Delivery Nasal Cannula Room Air O2 Flow Rate 2.0 2.0 08/15/16 08/16/16 08/16/16 08/16/16 23:31 03:14 07:06 07:45 Temp 98.2 98.2 Pulse 73 74 72 72 Resp 18 18 B/P 114/67 115/65 110/64 110/64 Pulse Ox 97 98 95 O2 Delivery Nasal Cannula Nasal Cannula Nasal Cannula O2 Flow Rate 2.0 2.0 2.0 08/16/16 08/16/16 08/16/16 08/16/16 08:05 08:50 08:50 10:30 Temp 98.4 98.4 Pulse 74 73 73 Resp 16 B/P 110/64 110/64 106/65 Pulse Ox 98 O2 Delivery Nasal Cannula Nasal Cannula O2 Flow Rate 2.0 2.0 Intake and Output 08/15/16 08/15/16 08/16/16 14:59 22:59 06:59 Intake Total 280 ml 738.7 ml 1131 ml Output Total 600 ml 650 ml Balance 280 ml 138.7 ml 481 ml HEATHER CHERRY MD Aug 16, 2016 14:55
[2016-08-16] MEDS ORDERED: WARFARIN 4 MG TABLET. PO ONE (16:00)
[2016-08-16] MEDS: ONDANSETRON PF 4 MG/2 ML VIAL. IV PRN (20:49)
[2016-08-16] MEDS: ATORVASTATIN CALCIUM 40 MG TABLET. PO SCH (20:49)
[2016-08-17 03:00] VITALS: BP 101/55
[2016-08-17 04:32] LABS: BASO % 1 % (0-3); EOS % 3 % (0-3); HEMATOCRIT 30.4 % (39.0-53.0); HEMOGLOBIN 9.5 g/dL (13.0-17.5); LYMPH # 0.8 x10^3/uL (1.0-4.8); LYMPH % 15 % (24-48); MEAN CORPUSCULAR HEMOGLOBIN 25 pg (25-35); MEAN CORPUSCULAR HGB CONC 31 g/dL (31-37); MEAN CORPUSCULAR VOLUME 80 fL (79-100); MONO % 12 % (0-9); NEUT % 69 % (31-73); PLATELET COUNT 118 x10^3/uL (140-400); RED BLOOD COUNT 3.81 x10^6/uL (4.30-5.70); RED CELL DISTRIBUTION WIDTH 18.8 % (11.5-14.5); WHITE BLOOD COUNT 5.1 x10^3/uL (4.0-11.0)
[2016-08-17 04:42] LABS: INR 1.6 (0.8-1.1)
[2016-08-17 04:43] LABS: ALBUMIN 3.1 g/dL (3.4-5.0); CALCIUM 8.3 mg/dL (8.5-10.1); CREATININE 3.1 mg/dL (0.7-1.3); PHOSPHORUS 5.2 mg/dL (2.6-4.7); POTASSIUM 3.5 mmol/L (3.5-5.1)
[2016-08-17 07:00] VITALS: BP 102/65
[2016-08-17] MEDS: INSULIN ASPART 300 UNITS/3 ML INSULN.PEN SQ SCH ×3 (08:00→17:00)
[2016-08-17] MEDS: COLESTIPOL HCL 1 GM TABLET PO SCH ×3 (09:12→20:55)
[2016-08-17] MEDS: PANTOPRAZOLE 40 MG TABLET.DR. PO SCH (09:12)
[2016-08-17] MEDS: CARVEDILOL 6.25 MG TABLET. PO SCH ×2 (09:12→17:18)
[2016-08-17] MEDS: AMIODARONE HCL 200 MG TABLET. PO SCH (09:13)
[2016-08-17] MEDS: ASPIRIN ENTERIC COATED 81 MG TABLET.DR. PO SCH (09:13)
[2016-08-17] MEDS: SACUBITRIL/VALSARTAN 24/26MG TABLET. PO SCH (09:14)
--- NOTE | 2016-08-17 09:32 | PDOC ---
SUBJECTIVE ROS SONA Doign and feeling better today, Has more strenght in her lower ext CVS: no Orthopnea, no CP RESP: no SOB, no SEGOVIA GI: no Nausea, no Vomiting : no Dysuria, no Urgency OBJECTIVE Vital Signs Vital Signs Date Time Temp Pulse Resp B/P Pulse Ox O2 Delivery O2 Flow Rate FiO2 08/17/16 09:14 65 102/65 08/17/16 07:00 98.4 18 91 Nasal Cannula 1.0 98.4 I & 0 Intake and Output 08/17/16 07:00 Intake Total 1357 ml Output Total 1725 ml Balance -368 ml Intake Oral 1150 ml IV Total 207 ml Output Urine Total 1525 ml Emesis 200 ml PHYSICAL EXAM Physical Exam General Appearance: Awake Alert Oriented x 3 In no Distress Eyes: VIsion Unchanged Conjunctiva Normal EN: No EN Drainage Mucous Memb. moist Neck: no JVD + JVP Supple no Thyromegaly CVS: S1 S2 + Murmur No Gallop No Rub tr Edema Resp: no Rales no Rhonchi no Acc. Muscle use GI: BS +ve NO Bruit Non Tender Non Distended, obese with multiple Sking folds : no CVA tenderness; no Suprapubic Tenderness Assessment & Plan ARF: Current FLuid and E-lyte status does not necessitate emergent need for Dialysis. Will re-evaluate for Dialysis in am; creat is improving on Dobutamine gtt. May need HD if Uremic s/s ensue. I feel that she will continue to improve her Renal function as long as adequate Perfusion can be ensured. CKD III with Creat 1.5ish is probably her baseline (based on previous trend) Anemia: check Iron, may need Epogen Transfuse as needed. HTN: Current BP meds reviewed. Ct Entresto for now Vol dpeeltion - presumably resolved; Uo is acceptable BiV Dil Cmyoaphty - End stage dilated cardiomyopathy - Need for Continuous Dobutamine gtt as OP. ? Need for Rrbuz-c-ulec vs Groshong? Discussed Plan of Care and prognosis etc. at length withpt. COMMENT/RELEVANT DATA Meds Current Medications Medications (Trade) Dose Ordered Sig/Fernando Start Time Stop Time Status Last Admin Dose Admin Albumin Human (Albuminar) 100 ml @ 100 mls/hr 1X ONCE 08/16/16 09:00 08/16/16 09:59 DC 08/16/16 08:41 100 MLS/HR Amiodarone HCl (Cordarone) 200 mg DAILY 08/15/16 09:00 08/17/16 09:13 200 MG Aspirin (Ecotrin) 81 mg DAILY 08/15/16 09:00 08/17/16 09:13 81 MG Atorvastatin Calcium (Lipitor) 40 mg QHS 08/14/16 21:00 08/16/16 20:49 40 MG Carvedilol (Coreg) 6.25 mg BIDWMEALS 08/14/16 17:30 08/17/16 09:12 6.25 MG Ceftriaxone Sodium/Sodium Chloride (Rocephin/Iv Sodium Chloride 0.9% 50ml) 50 ml @ 100 mls/hr Q24H 08/17/16 10:00 Colestipol HCl (Colestid) 1 gm TID 08/14/16 21:00 08/17/16 09:12 1 GM Dextrose 12.5 gm 12.5 gm PRN Q15MIN PRN 08/14/16 16:45 Dobutamine HCl/ Dextrose 250 ml @ 0 mls/hr CONT PRN PRN 08/15/16 14:53 08/16/16 18:16 10.7 MLS/HR Furosemide (Lasix) 40 mg 1X ONCE 08/16/16 10:00 08/16/16 10:01 DC 08/16/16 09:45 40 MG Furosemide 40 mg 40 mg 1X ONCE 08/15/16 15:00 08/15/16 15:01 DC 08/15/16 16:22 40 MG Insulin Aspart (Novolog) 0-5 UNITS TIDWMEALS 08/14/16 17:30 Magnesium Sulfate/ Dextrose (Magnesium Sulfate PREMIX 2GM) 50 ml @ 25 mls/hr PRN DAILY PRN 08/15/16 15:30 Metoclopramide HCl (Reglan) 5 mg PRN BID PRN 08/14/16 16:45 08/16/16 10:25 DC Ondansetron HCl 4 mg 4 mg PRN Q6HRS PRN 08/16/16 20:30 08/16/16 20:49 4 MG Pantoprazole Sodium (Protonix) 40 mg DAILYAC 08/15/16 11:30 08/17/16 09:12 40 MG Sacubitril/ Valsartan (Entresto 24 Mg-26 Mg) 1 tab BID 08/14/16 21:00 08/17/16 09:14 1 TAB Sodium Bicarbonate 50 meq 50 meq Q2HR 08/15/16 16:00 08/15/16 18:30 DC 08/15/16 18:20 50 MEQ Sodium Polystyrene Sulfonate (Kayexalate) 60 gm 1X ONCE 08/14/16 18:30 08/14/16 18:31 DC 08/14/16 18:51 60 GM Sodium Chloride (Iv Sodium Chloride 0.9% 1000ml Bag) 1,000 ml @ 100 mls/hr Q10H 08/14/16 17:30 08/15/16 03:29 DC 08/14/16 18:53 100 MLS/HR Warfarin Sodium (Coumadin Per Pharmacy) 1 each PRN DAILY PRN 08/15/16 10:00 08/16/16 12:03 1 EACH Warfarin Sodium (Coumadin Per Physician) 1 each PRN DAILY PRN 08/14/16 17:15 08/15/16 09:54 DC Warfarin Sodium (Coumadin) 4 mg 1X WARF ONCE 08/16/16 16:00 08/16/16 16:01 DC 08/16/16 17:28 4 MG Warfarin Sodium 4 mg 4 mg 1X WARF ONCE 08/15/16 16:00 08/15/16 16:01 DC 08/15/16 16:33 4 MG Lab Laboratory Tests Test 08/16/16 10:00 08/16/16 11:49 08/16/16 17:27 08/16/16 20:48 White Blood Count 5.4x10^3/uL (4.0-11.0) Red Blood Count 3.86x10^6/uL (4.30-5.70) Hemoglobin 9.6g/dL (13.0-17.5) Hematocrit 30.1% (39.0-53.0) Mean Corpuscular Volume 78fL (79-100) Mean Corpuscular Hemoglobin 25pg (25-35) Mean Corpuscular Hemoglobin Concent 32g/dL (31-37) Red Cell Distribution Width 18.8% (11.5-14.5) Platelet Count 115x10^3/uL (140-400) Neutrophils (%) (Auto) 74% (31-73) Lymphocytes (%) (Auto) 12% (24-48) Monocytes (%) (Auto) 11% (0-9) Eosinophils (%) (Auto) 3% (0-3) Basophils (%) (Auto) 1% (0-3) Neutrophils # (Auto) 3.9x10^3uL (1.8-7.7) Lymphocytes # (Auto) 0.7x10^3/uL (1.0-4.8) Monocytes # (Auto) 0.6x10^3/uL (0.0-1.1) Eosinophils # (Auto) 0.1x10^3/uL (0.0-0.7) Basophils # (Auto) 0.0x10^3/uL (0.0-0.2) Prothrombin Time 18.5SEC (11.7-14.0) Prothromb Time International Ratio 1.6 (0.8-1.1) Sodium Level 139mmol/L (136-145) Potassium Level 3.7mmol/L (3.5-5.1) Chloride Level 104mmol/L (98-107) Carbon Dioxide Level 22mmol/L (21-32) Anion Gap 13 (6-14) Blood Urea Nitrogen 127mg/dL (8-26) Creatinine 3.3mg/dL (0.7-1.3) Estimated GFR (Cockcroft-Gault) 22.3 BUN/Creatinine Ratio 38 (6-20) Glucose Level 104mg/dL (70-99) Calcium Level 8.4mg/dL (8.5-10.1) Phosphorus Level 5.1mg/dL (2.6-4.7) Magnesium Level 2.2mg/dL (1.8-2.4) Total Bilirubin 0.7mg/dL (0.2-1.0) Aspartate Amino Transf (AST/SGOT) 36U/L (15-37) Alanine Aminotransferase (ALT/SGPT) 43U/L (16-63) Alkaline Phosphatase 88U/L (46-116) Total Protein 6.7g/dL (6.4-8.2) Albumin 3.5g/dL (3.4-5.0) Albumin/Globulin Ratio 1.1 (1.0-1.7) Glucose (Fingerstick) 127mg/dL (70-99) 137mg/dL (70-99) 125mg/dL (70-99) Test 08/17/16 03:50 08/17/16 08:05 White Blood Count 5.1x10^3/uL (4.0-11.0) Red Blood Count 3.81x10^6/uL (4.30-5.70) Hemoglobin 9.5g/dL (13.0-17.5) Hematocrit 30.4% (39.0-53.0) Mean Corpuscular Volume 80fL (79-100) Mean Corpuscular Hemoglobin 25pg (25-35) Mean Corpuscular Hemoglobin Concent 31g/dL (31-37) Red Cell Distribution Width 18.8% (11.5-14.5) Platelet Count 118x10^3/uL (140-400) Neutrophils (%) (Auto) 69% (31-73) Lymphocytes (%) (Auto) 15% (24-48) Monocytes (%) (Auto) 12% (0-9) Eosinophils (%) (Auto) 3% (0-3) Basophils (%) (Auto) 1% (0-3) Neutrophils # (Auto) 3.5x10^3uL (1.8-7.7) Lymphocytes # (Auto) 0.8x10^3/uL (1.0-4.8) Monocytes # (Auto) 0.6x10^3/uL (0.0-1.1) Eosinophils # (Auto) 0.1x10^3/uL (0.0-0.7) Basophils # (Auto) 0.0x10^3/uL (0.0-0.2) Prothrombin Time 18.0SEC (11.7-14.0) Prothromb Time International Ratio 1.6 (0.8-1.1) Sodium Level 138mmol/L (136-145) Potassium Level 3.5mmol/L (3.5-5.1) Chloride Level 103mmol/L (98-107) Carbon Dioxide Level 20mmol/L (21-32) Anion Gap 15 (6-14) Blood Urea Nitrogen 120mg/dL (8-26) Creatinine 3.1mg/dL (0.7-1.3) Estimated GFR (Cockcroft-Gault) 24.0 Glucose Level 96mg/dL (70-99) Calcium Level 8.3mg/dL (8.5-10.1) Phosphorus Level 5.2mg/dL (2.6-4.7) Albumin 3.1g/dL (3.4-5.0) Glucose (Fingerstick) 95mg/dL (70-99) Other 1. Elevated renal resistive indices, a finding which can be seen with intrinsic renal disease. 2. Bilateral renal cysts, the largest of which measures 3.5 cm on the left. This largest cyst appears simple and is slightly increased compared to the prior study. The smaller left renal cyst is not seen on the prior study and may contain debris. The right renal cyst is not significant changed. ALLI SELBY MD Aug 17, 2016 09:32
[2016-08-17 10:01] LABS: % SAT IRON 5 % (15-34); IRON,SERUM 15 ug/dL (65-175)
--- NOTE | 2016-08-17 10:16 | PDOC ---
PROGRESS NOTES Subjective Subjective feels week Objective Objective Vital Signs Date Time Temp Pulse Resp B/P Pulse Ox O2 Delivery O2 Flow Rate FiO2 08/17/16 09:14 65 102/65 08/17/16 07:00 98.4 18 91 Nasal Cannula 1.0 98.4 Intake and Output 08/17/16 07:00 Intake Total 1357 ml Output Total 1725 ml Balance -368 ml Intake Oral 1150 ml IV Total 207 ml Output Urine Total 1525 ml Emesis 200 ml Physical Exam Abdomen: Normal bowel sounds, Soft Heart: Regular rate, Normal S1 Extremities: No clubbing General: Alert HEENT: Atraumatic Lungs: Clear to auscultation MUSCULOSKELETAL: No deformity Neck: Supple Neuro: Normal speech Psych/Mental Status: Mood NL COMMENT billy present Diagnosis Problem List Problems Medical Problems: (1) Acute on chronic renal failure Status: Acute Assessment Assessment 1. ARF with CKD II ATN SONA 2. a/c systolic CHF ICM EF 10% AICD 3. HTN 4. DM II with CKD II diet control 5. hyperlipidemia 6. mild to mod MR 7. moderate pulmonary HTN 8. severe weakness and debility 9. metabolic encephalopathy POA 10. moderate chronic PCL malnutrition PLAN: cautious hydrate with IV fluids, monitor kidney function. CHF on dobutamine cardiology consult d/c enestro On IV Dobutamine. Weight last discharge 150.37 Admit wt 157.5 ARF with CKD renal consult lasix as needed Labs pending. DM II FSBS/low intensity SSI DVT/GI prophylaxis SCD/Yeison warfarin per pharmacy pepcid Anemia- hb decresed to 9.6. Tremors- off Gabapentin.? due to ARF,CKD. Weakness- PT/OT. Problems: Plan Plan of Care Problems Medical Problems: (1) Acute on chronic renal failure Status: Acute Comment Review of Relevant I have reviewed the following items marquise (where applicable) has been applied. Labs Laboratory Tests Test 08/16/16 11:49 08/16/16 17:27 08/16/16 20:48 08/17/16 03:50 Glucose (Fingerstick) 127mg/dL (70-99) 137mg/dL (70-99) 125mg/dL (70-99) White Blood Count 5.1x10^3/uL (4.0-11.0) Red Blood Count 3.81x10^6/uL (4.30-5.70) Hemoglobin 9.5g/dL (13.0-17.5) Hematocrit 30.4% (39.0-53.0) Mean Corpuscular Volume 80fL (79-100) Mean Corpuscular Hemoglobin 25pg (25-35) Mean Corpuscular Hemoglobin Concent 31g/dL (31-37) Red Cell Distribution Width 18.8% (11.5-14.5) Platelet Count 118x10^3/uL (140-400) Neutrophils (%) (Auto) 69% (31-73) Lymphocytes (%) (Auto) 15% (24-48) Monocytes (%) (Auto) 12% (0-9) Eosinophils (%) (Auto) 3% (0-3) Basophils (%) (Auto) 1% (0-3) Neutrophils # (Auto) 3.5x10^3uL (1.8-7.7) Lymphocytes # (Auto) 0.8x10^3/uL (1.0-4.8) Monocytes # (Auto) 0.6x10^3/uL (0.0-1.1) Eosinophils # (Auto) 0.1x10^3/uL (0.0-0.7) Basophils # (Auto) 0.0x10^3/uL (0.0-0.2) Reticulocyte Count (auto) 1.1% (0.5-2.5) Prothrombin Time 18.0SEC (11.7-14.0) Prothromb Time International Ratio 1.6 (0.8-1.1) Sodium Level 138mmol/L (136-145) Potassium Level 3.5mmol/L (3.5-5.1) Chloride Level 103mmol/L (98-107) Carbon Dioxide Level 20mmol/L (21-32) Anion Gap 15 (6-14) Blood Urea Nitrogen 120mg/dL (8-26) Creatinine 3.1mg/dL (0.7-1.3) Estimated GFR (Cockcroft-Gault) 24.0 Glucose Level 96mg/dL (70-99) Calcium Level 8.3mg/dL (8.5-10.1) Phosphorus Level 5.2mg/dL (2.6-4.7) Iron Level 15ug/dL (65-175) Total Iron Binding Capacity 295ug/dL (250-450) Iron Saturation 5% (15-34) Albumin 3.1g/dL (3.4-5.0) Test 08/17/16 08:05 Glucose (Fingerstick) 95mg/dL (70-99) Microbiology 08/15/16 Urine Culture - Preliminary, Resulted 08/15/16 Urine Culture Result 1 (JV) - Preliminary, Resulted 08/15/16 Urine Culture Result 2 (JV) - Preliminary, Resulted Medications Current Medications Ceftriaxone Sodium/Sodium Chloride (Rocephin/Iv Sodium Chloride 0.9% 50ml) 50 ml @ 100 mls/hr Q24H IV ; Start 08/17/16 at 10:00 Ondansetron HCl 4 mg 4 mg PRN Q6HRS PRN IV nausea Last administered on 20:49; Start 08/16/16 at 20:30 Warfarin Sodium (Coumadin) 4 mg 1X WARF ONCE PO Last administered on 08/16/16 17:28; Start 08/16/16 at 16:00; Stop 08/16/16 at 16:01; Status DC Vitals/I & O Vital Sign - Last 24 Hours 08/16/16 08/16/16 08/16/16 08/16/16 10:30 15:30 15:43 17:28 Temp 98.4 98.1 98.4 98.1 Pulse 73 67 67 Resp 16 16 B/P 106/65 89/54 112/58 113/66 Pulse Ox 98 96 O2 Delivery Nasal Cannula Nasal Cannula O2 Flow Rate 2.0 1.0 08/16/16 08/16/16 08/16/16 08/16/16 19:00 20:00 20:49 23:10 Temp 97.7 98.1 97.7 98.1 Pulse 66 65 64 Resp 20 18 B/P 107/59 102/55 Pulse Ox 95 91 O2 Delivery Nasal Cannula Nasal Cannula Nasal Cannula O2 Flow Rate 1.0 1.0 1.0 08/17/16 08/17/16 08/17/16 08/17/16 03:00 07:00 09:12 09:13 Temp 98.2 98.4 98.2 98.4 Pulse 65 65 65 Resp 22 18 B/P 101/55 102/65 102/65 102/65 Pulse Ox 92 91 O2 Delivery Nasal Cannula Nasal Cannula O2 Flow Rate 1.0 1.0 08/17/16 09:14 Pulse 65 B/P 102/65 Intake and Output 08/16/16 08/16/16 08/17/16 15:00 23:00 07:00 Intake Total 100 ml 1007 ml 250 ml Output Total 1050 ml 675 ml Balance 100 ml -43 ml -425 ml AFSHAN SLADE MD Aug 17, 2016 10:16
[2016-08-17] MEDS: IV NORMAL SALINE 1000ML BAG 1,000 ML IV SCH ×2 (11:02→23:42)
[2016-08-17 11:21] VITALS: BP 102/51
--- NOTE | 2016-08-17 13:25 | PDOC ---
PROGRESS NOTES Subjective Subjective Overnight, patient experienced nausea and vomited one time. Pt denies seeing any blood or dark tinged in the vomit. She reports it looked just like food. Pt denies having any chest pain or SOB. Pt reports feeling she is getting enough air in when she is breathing. Objective Objective Vital Signs Date Time Temp Pulse Resp B/P Pulse Ox O2 Delivery O2 Flow Rate FiO2 08/17/16 11:21 98.5 70 22 102/51 91 Nasal Cannula 2.0 98.5 Intake and Output 08/17/16 07:00 Intake Total 1357 ml Output Total 1725 ml Balance -368 ml Intake Oral 1150 ml IV Total 207 ml Output Urine Total 1525 ml Emesis 200 ml Physical Exam Abdomen: No tenderness, Other (Pt is still distended but soft. ) Heart: Regular rate, Normal S1, Normal S2, Other (2/6 systolic murmur) Extremities: Other (+2 pitting edema) General: Alert, Oriented X3, Cooperative, No acute distress HEENT: Atraumatic, PERRLA Lungs: Clear to auscultation, Normal air movement MUSCULOSKELETAL: No joint tenderness, No deformity, No muscular tenderness noted Neck: Supple Neuro: Normal speech, Normal tone, Sensation intact Psych/Mental Status: Mental status NL, Mood NL Skin: No rashes, No significant lesion Assessment Assessment Problems Medical Problems: (1) Acute on chronic renal failure Status: Acute 1. End-stage dilated cardiomyopathy with ejection fraction of 10%; systolic CHF ICM with AICD placed 2. ARF with CKD II ATN SONA 3. HTN 4. DM II with CKD II diet control 5. hyperlipidemia 6. mild to mod MR 7. moderate pulmonary HTN 8. severe weakness and debility 9. metabolic encephalopathy POA 10. moderate chronic PCL malnutrition Plan Plan of Care 1. Consult IR for insertion of port for dobutamine infusions 2. Recommend patient to receive dobutamine infusions twice a week for the remainder of her lifetime for the CHF. Comment Review of Relevant I have reviewed the following items marquise (where applicable) has been applied. Labs Laboratory Tests Test 08/15/16 17:01 08/16/16 07:18 08/16/16 10:00 08/16/16 11:49 Glucose (Fingerstick) 115mg/dL (70-99) 86mg/dL (70-99) 127mg/dL (70-99) White Blood Count 5.4x10^3/uL (4.0-11.0) Red Blood Count 3.86x10^6/uL (4.30-5.70) Hemoglobin 9.6g/dL (13.0-17.5) Hematocrit 30.1% (39.0-53.0) Mean Corpuscular Volume 78fL (79-100) Mean Corpuscular Hemoglobin 25pg (25-35) Mean Corpuscular Hemoglobin Concent 32g/dL (31-37) Red Cell Distribution Width 18.8% (11.5-14.5) Platelet Count 115x10^3/uL (140-400) Neutrophils (%) (Auto) 74% (31-73) Lymphocytes (%) (Auto) 12% (24-48) Monocytes (%) (Auto) 11% (0-9) Eosinophils (%) (Auto) 3% (0-3) Basophils (%) (Auto) 1% (0-3) Neutrophils # (Auto) 3.9x10^3uL (1.8-7.7) Lymphocytes # (Auto) 0.7x10^3/uL (1.0-4.8) Monocytes # (Auto) 0.6x10^3/uL (0.0-1.1) Eosinophils # (Auto) 0.1x10^3/uL (0.0-0.7) Basophils # (Auto) 0.0x10^3/uL (0.0-0.2) Prothrombin Time 18.5SEC (11.7-14.0) Prothromb Time International Ratio 1.6 (0.8-1.1) Sodium Level 139mmol/L (136-145) Potassium Level 3.7mmol/L (3.5-5.1) Chloride Level 104mmol/L (98-107) Carbon Dioxide Level 22mmol/L (21-32) Anion Gap 13 (6-14) Blood Urea Nitrogen 127mg/dL (8-26) Creatinine 3.3mg/dL (0.7-1.3) Estimated GFR (Cockcroft-Gault) 22.3 BUN/Creatinine Ratio 38 (6-20) Glucose Level 104mg/dL (70-99) Calcium Level 8.4mg/dL (8.5-10.1) Phosphorus Level 5.1mg/dL (2.6-4.7) Magnesium Level 2.2mg/dL (1.8-2.4) Total Bilirubin 0.7mg/dL (0.2-1.0) Aspartate Amino Transf (AST/SGOT) 36U/L (15-37) Alanine Aminotransferase (ALT/SGPT) 43U/L (16-63) Alkaline Phosphatase 88U/L (46-116) Total Protein 6.7g/dL (6.4-8.2) Albumin 3.5g/dL (3.4-5.0) Albumin/Globulin Ratio 1.1 (1.0-1.7) Test 08/16/16 17:27 08/16/16 20:48 08/17/16 03:50 08/17/16 08:05 Glucose (Fingerstick) 137mg/dL (70-99) 125mg/dL (70-99) 95mg/dL (70-99) White Blood Count 5.1x10^3/uL (4.0-11.0) Red Blood Count 3.81x10^6/uL (4.30-5.70) Hemoglobin 9.5g/dL (13.0-17.5) Hematocrit 30.4% (39.0-53.0) Mean Corpuscular Volume 80fL (79-100) Mean Corpuscular Hemoglobin 25pg (25-35) Mean Corpuscular Hemoglobin Concent 31g/dL (31-37) Red Cell Distribution Width 18.8% (11.5-14.5) Platelet Count 118x10^3/uL (140-400) Neutrophils (%) (Auto) 69% (31-73) Lymphocytes (%) (Auto) 15% (24-48) Monocytes (%) (Auto) 12% (0-9) Eosinophils (%) (Auto) 3% (0-3) Basophils (%) (Auto) 1% (0-3) Neutrophils # (Auto) 3.5x10^3uL (1.8-7.7) Lymphocytes # (Auto) 0.8x10^3/uL (1.0-4.8) Monocytes # (Auto) 0.6x10^3/uL (0.0-1.1) Eosinophils # (Auto) 0.1x10^3/uL (0.0-0.7) Basophils # (Auto) 0.0x10^3/uL (0.0-0.2) Reticulocyte Count (auto) 1.1% (0.5-2.5) Prothrombin Time 18.0SEC (11.7-14.0) Prothromb Time International Ratio 1.6 (0.8-1.1) Sodium Level 138mmol/L (136-145) Potassium Level 3.5mmol/L (3.5-5.1) Chloride Level 103mmol/L (98-107) Carbon Dioxide Level 20mmol/L (21-32) Anion Gap 15 (6-14) Blood Urea Nitrogen 120mg/dL (8-26) Creatinine 3.1mg/dL (0.7-1.3) Estimated GFR (Cockcroft-Gault) 24.0 Glucose Level 96mg/dL (70-99) Calcium Level 8.3mg/dL (8.5-10.1) Phosphorus Level 5.2mg/dL (2.6-4.7) Iron Level 15ug/dL (65-175) Total Iron Binding Capacity 295ug/dL (250-450) Iron Saturation 5% (15-34) Ferritin 77ng/mL (26-388) Albumin 3.1g/dL (3.4-5.0) Test 08/17/16 11:34 Glucose (Fingerstick) 104mg/dL (70-99) Laboratory Tests Test 08/16/16 17:27 08/16/16 20:48 08/17/16 03:50 08/17/16 08:05 Glucose (Fingerstick) 137mg/dL (70-99) 125mg/dL (70-99) 95mg/dL (70-99) White Blood Count 5.1x10^3/uL (4.0-11.0) Red Blood Count 3.81x10^6/uL (4.30-5.70) Hemoglobin 9.5g/dL (13.0-17.5) Hematocrit 30.4% (39.0-53.0) Mean Corpuscular Volume 80fL (79-100) Mean Corpuscular Hemoglobin 25pg (25-35) Mean Corpuscular Hemoglobin Concent 31g/dL (31-37) Red Cell Distribution Width 18.8% (11.5-14.5) Platelet Count 118x10^3/uL (140-400) Neutrophils (%) (Auto) 69% (31-73) Lymphocytes (%) (Auto) 15% (24-48) Monocytes (%) (Auto) 12% (0-9) Eosinophils (%) (Auto) 3% (0-3) Basophils (%) (Auto) 1% (0-3) Neutrophils # (Auto) 3.5x10^3uL (1.8-7.7) Lymphocytes # (Auto) 0.8x10^3/uL (1.0-4.8) Monocytes # (Auto) 0.6x10^3/uL (0.0-1.1) Eosinophils # (Auto) 0.1x10^3/uL (0.0-0.7) Basophils # (Auto) 0.0x10^3/uL (0.0-0.2) Reticulocyte Count (auto) 1.1% (0.5-2.5) Prothrombin Time 18.0SEC (11.7-14.0) Prothromb Time International Ratio 1.6 (0.8-1.1) Sodium Level 138mmol/L (136-145) Potassium Level 3.5mmol/L (3.5-5.1) Chloride Level 103mmol/L (98-107) Carbon Dioxide Level 20mmol/L (21-32) Anion Gap 15 (6-14) Blood Urea Nitrogen 120mg/dL (8-26) Creatinine 3.1mg/dL (0.7-1.3) Estimated GFR (Cockcroft-Gault) 24.0 Glucose Level 96mg/dL (70-99) Calcium Level 8.3mg/dL (8.5-10.1) Phosphorus Level 5.2mg/dL (2.6-4.7) Iron Level 15ug/dL (65-175) Total Iron Binding Capacity 295ug/dL (250-450) Iron Saturation 5% (15-34) Ferritin 77ng/mL (26-388) Albumin 3.1g/dL (3.4-5.0) Test 08/17/16 11:34 Glucose (Fingerstick) 104mg/dL (70-99) Microbiology 08/15/16 Urine Culture - Preliminary, Resulted 08/15/16 Urine Culture Result 1 (JV) - Preliminary, Resulted 08/15/16 Urine Culture Result 2 (JV) - Preliminary, Resulted Medications Current Medications Insulin Aspart (Novolog) 0-5 UNITS TIDWMEALS SQ ; Start 08/14/16 at 17:30 Dextrose 12.5 gm 12.5 gm PRN Q15MIN PRN IV SEE COMMENTS; Start 08/14/16 at 16: 45 Sodium Chloride (Iv Sodium Chloride 0.9% 1000ml Bag) 1,000 ml @ 100 mls/hr Q10H IV Last administered on 08/14/16 18:53; Start 08/14/16 at 17:30; Stop 08/15/16 at 03:29; Status DC Amiodarone HCl (Cordarone) 200 mg DAILY PO Last administered on 08/17/16 09:13 ; Start 08/15/16 at 09:00 Aspirin (Ecotrin) 81 mg DAILY PO Last administered on 08/17/16 09:13; Start 08/15/16 at 09:00 Atorvastatin Calcium (Lipitor) 40 mg QHS PO Last administered on 08/16/16 20:49 ; Start 08/14/16 at 21:00 Carvedilol (Coreg) 6.25 mg BIDWMEALS PO Last administered on 08/17/16 09:12; Start 08/14/16 at 17:30 Colestipol HCl (Colestid) 1 gm TID PO Last administered on 08/17/16 09:12; Start 08/14/16 at 21:00 Metoclopramide HCl (Reglan) 5 mg PRN BID PRN PO NAUSEA; Start 08/14/16 at 16:45 ; Stop 08/16/16 at 10:25; Status DC Sacubitril/ Valsartan (Entresto 24 Mg-26 Mg) 1 tab BID PO Last administered on 08/17/16 09:14; Start 08/14/16 at 21:00; Stop 08/17/16 at 10:16; Status DC Warfarin Sodium (Coumadin) 2.5 mg DAILY16 PO Last administered on 08/14/16 18: 50; Start 08/14/16 at 18:00; Stop 08/15/16 at 14:13; Status DC Warfarin Sodium (Coumadin Per Physician) 1 each PRN DAILY PRN MC SEE COMMENTS; Start 08/14/16 at 17:15; Stop 08/15/16 at 09:54; Status DC Sodium Polystyrene Sulfonate (Kayexalate) 60 gm 1X ONCE PO Last administered on 08/14/16 18:51; Start 08/14/16 at 18:30; Stop 08/14/16 at 18:31; Status DC Warfarin Sodium (Coumadin Per Pharmacy) 1 each PRN DAILY PRN MC SEE COMMENTS Last administered on 08/16/16 12:03; Start 08/15/16 at 10:00 Pantoprazole Sodium 40 mg 40 mg DAILYAC PO Last administered on 08/17/16 09:12 ; Start 08/15/16 at 11:30 Dobutamine HCl/ Dextrose 250 ml @ 0 mls/hr CONT PRN IV ; Start 08/15/16 at 14:00 ; Stop 08/15/16 at 14:53; Status DC Albumin Human (Albuminar) 100 ml @ 100 mls/hr 1X ONCE IV Last administered on 08/15/16 15:25; Start 08/15/16 at 14:00; Stop 08/15/16 at 14:59; Status DC Furosemide 40 mg 40 mg 1X ONCE IVP Last administered on 08/15/16 16:22; Start 08/15/16 at 15:00; Stop 08/15/16 at 15:01; Status DC Albumin Human (Albuminar) 100 ml @ 100 mls/hr 1X ONCE IV Last administered on 08/16/16 08:41; Start 08/16/16 at 09:00; Stop 08/16/16 at 09:59; Status DC Furosemide (Lasix) 40 mg 1X ONCE IVP Last administered on 08/16/16 09:45; Start 08/16/16 at 10:00; Stop 08/16/16 at 10:01; Status DC Warfarin Sodium 4 mg 4 mg 1X WARF ONCE PO Last administered on 08/15/16 16:33 ; Start 08/15/16 at 16:00; Stop 08/15/16 at 16:01; Status DC Dobutamine HCl/ Dextrose 250 ml @ 0 mls/hr CONT PRN PRN IV SEE I/O RECORD Last administered on 08/16/16 18:16; Start 08/15/16 at 14:53 Sodium Bicarbonate 50 meq 50 meq Q2HR IV Last administered on 08/15/16 18:20; Start 08/15/16 at 16:00; Stop 08/15/16 at 18:30; Status DC Magnesium Sulfate/ Dextrose (Magnesium Sulfate PREMIX 2GM) 50 ml @ 25 mls/hr PRN DAILY PRN IV for Mag < 1.7 on am labs; Start 08/15/16 at 15:30 Warfarin Sodium (Coumadin) 4 mg 1X WARF ONCE PO Last administered on 08/16/16 17:28; Start 08/16/16 at 16:00; Stop 08/16/16 at 16:01; Status DC Ondansetron HCl 4 mg 4 mg PRN Q6HRS PRN IV nausea Last administered on 20:49; Start 08/16/16 at 20:30 Ceftriaxone Sodium 1 gm/ Sodium Chloride 50 ml @ 100 mls/hr Q24H IV Last administered on 08/17/16 11:02; Start 08/17/16 at 10:00 Sodium Chloride (Iv Sodium Chloride 0.9% 1000ml Bag) 1,000 ml @ 75 mls/hr [id number] IV Last administered on 08/17/16 11:02; Start 08/17/16 at 10:15 Active Scripts Active Entresto 24 mg-26 mg Tablet (Sacubitril/Valsartan) 1 Each Tablet 1 Tab PO BID Coumadin (Warfarin Sodium) 2.5 Mg Tablet 2.5 Mg PO DAILY16 Reported Reglan (Metoclopramide Hcl) 10 Mg Tablet 5 Mg PO PRN BID PRN Atorvastatin Calcium 40 Mg Tablet 1 Tab PO DAILY Colestid (Colestipol Hcl) 1 Gm Tablet 1 Gm PO TID Pacerone (Amiodarone Hcl) 200 Mg Tablet 200 Mg PO DAILY Lasix (Furosemide) 80 Mg Tablet 1 Tab PO BID Gabapentin 100 Mg Capsule 1 Cap PO TID Aspir 81 (Aspirin) 81 Mg Tablet.dr 1 Tab PO DAILY Coreg (Carvedilol) 6.25 Mg Tablet 1 Tab PO BID K-Tab ER (Potassium Chloride) 20 Meq Tablet.er 20 Meq PO BID Vitals/I & O Vital Sign - Last 24 Hours 08/16/16 08/16/16 08/16/16 08/16/16 15:30 15:43 17:28 19:00 Temp 98.1 97.7 98.1 97.7 Pulse 67 67 66 Resp 16 20 B/P 89/54 112/58 113/66 107/59 Pulse Ox 96 95 O2 Delivery Nasal Cannula Nasal Cannula O2 Flow Rate 1.0 1.0 08/16/16 08/16/16 08/16/16 08/17/16 20:00 20:49 23:10 03:00 Temp 98.1 98.2 98.1 98.2 Pulse 65 64 65 Resp 18 22 B/P 102/55 101/55 Pulse Ox 91 92 O2 Delivery Nasal Cannula Nasal Cannula Nasal Cannula O2 Flow Rate 1.0 1.0 1.0 08/17/16 08/17/16 08/17/16 08/17/16 07:00 08:00 09:12 09:13 Temp 98.4 98.4 Pulse 65 65 Resp 18 B/P 102/65 102/65 102/65 Pulse Ox 91 O2 Delivery Nasal Cannula Nasal Cannula O2 Flow Rate 1.0 1.0 08/17/16 08/17/16 09:14 11:21 Temp 98.5 98.5 Pulse 65 70 Resp 22 B/P 102/65 102/51 Pulse Ox 91 O2 Delivery Nasal Cannula O2 Flow Rate 2.0 Intake and Output 08/16/16 08/16/16 08/17/16 15:00 23:00 07:00 Intake Total 100 ml 1007 ml 250 ml Output Total 1050 ml 675 ml Balance 100 ml -43 ml -425 ml HEATHER CHERRY MD Aug 17, 2016 13:25
[2016-08-17 15:04] VITALS: BP 104/56
[2016-08-17] MEDS ORDERED: WARFARIN 5 MG TABLET. PO ONE (16:00)
[2016-08-17] MEDS: ONDANSETRON PF 4 MG/2 ML VIAL. IV PRN (17:19)
[2016-08-17 19:00] VITALS: BP 104/57
[2016-08-17] MEDS: ATORVASTATIN CALCIUM 40 MG TABLET. PO SCH (20:55)
[2016-08-17 23:04] VITALS: BP 108/61
[2016-08-18] VITALS (17 sets, daily range): BP systolic 93–112; BP diastolic 50–69
[2016-08-18 04:30] LABS: BASO % 0 % (0-3); EOS % 1 % (0-3); HEMATOCRIT 31.4 % (39.0-53.0); HEMOGLOBIN 9.8 g/dL (13.0-17.5); LYMPH # 0.7 x10^3/uL (1.0-4.8); LYMPH % 12 % (24-48); MEAN CORPUSCULAR HEMOGLOBIN 25 pg (25-35); MEAN CORPUSCULAR HGB CONC 31 g/dL (31-37); MEAN CORPUSCULAR VOLUME 80 fL (79-100); MONO % 11 % (0-9); NEUT % 75 % (31-73); PLATELET COUNT 103 x10^3/uL (140-400); RED BLOOD COUNT 3.94 x10^6/uL (4.30-5.70); RED CELL DISTRIBUTION WIDTH 19.4 % (11.5-14.5)
[2016-08-18 04:38] LABS: ALBUMIN 2.9 g/dL (3.4-5.0); CALCIUM 8.5 mg/dL (8.5-10.1); CREATININE 2.8 mg/dL (0.7-1.3); PHOSPHORUS 5.1 mg/dL (2.6-4.7); POTASSIUM 3.7 mmol/L (3.5-5.1)
[2016-08-18 04:51] LABS: INR 1.9 (0.8-1.1)
[2016-08-18] MEDS: INSULIN ASPART 300 UNITS/3 ML INSULN.PEN SQ SCH ×3 (08:00→17:00)
[2016-08-18] MEDS ORDERED: HEPARIN PF 500 UNIT/5 ML DISP.SYRIN. IV ONE ×2 (09:29→11:30)
[2016-08-18] MEDS ORDERED: VANCOMYCIN 1GM IVPB FOR OMNI 250 ML ONE (09:29)
[2016-08-18] MEDS ORDERED: LIDOCAINE 2%/EPI 1:100,000 20 ML VIAL. ONE (09:29)
[2016-08-18] MEDS: PANTOPRAZOLE 40 MG TABLET.DR. PO SCH (09:44)
[2016-08-18] MEDS: ONDANSETRON PF 4 MG/2 ML VIAL. IV PRN (09:44)
[2016-08-18] MEDS: ASPIRIN ENTERIC COATED 81 MG TABLET.DR. PO SCH (09:46)
[2016-08-18] MEDS: CARVEDILOL 6.25 MG TABLET. PO SCH ×2 (09:46→17:56)
[2016-08-18] MEDS: AMIODARONE HCL 200 MG TABLET. PO SCH (09:46)
--- NOTE | 2016-08-18 10:09 | PDOC ---
PROGRESS NOTES Subjective Subjective feels week in legs Objective Objective Vital Signs Date Time Temp Pulse Resp B/P Pulse Ox O2 Delivery O2 Flow Rate FiO2 08/18/16 09:46 71 110/61 08/18/16 07:00 98.6 16 Nasal Cannula 1.0 98.6 08/18/16 03:25 96 Intake and Output 08/18/16 07:00 Intake Total 1208 ml Output Total 1075 ml Balance 133 ml Intake Oral 580 ml IV Total 628 ml Output Urine Total 1075 ml Physical Exam Abdomen: Normal bowel sounds, Soft Heart: Regular rate, Normal S1 Extremities: No clubbing General: Alert HEENT: Atraumatic Lungs: Clear to auscultation MUSCULOSKELETAL: No joint tenderness, No deformity, No muscular tenderness noted Neck: Supple Neuro: Normal speech Psych/Mental Status: Mood NL Skin: No rashes, No significant lesion COMMENT billy present Diagnosis Problem List Problems Medical Problems: (1) Acute on chronic renal failure Status: Acute Assessment Assessment 1. ARF with CKD II ATN SONA 2. a/c systolic CHF ICM EF 10% AICD 3. HTN 4. DM II with CKD II diet control 5. hyperlipidemia 6. mild to mod MR 7. moderate pulmonary HTN 8. severe weakness and debility 9. metabolic encephalopathy POA 10. moderate chronic PCL malnutrition PLAN: Rocephin for UTI,E Coli olive cath placement today. cautious hydrate with IV fluids, monitor kidney function.cr 2.9 down from 3.9 CHF on dobutamine cardiology consult appreciated d/c enestro On IV Dobutamine. Weight last discharge 150.37 Admit wt 157.5 ARF with CKD renal consult lasix as needed Labs pending. DM II FSBS/low intensity SSI DVT/GI prophylaxis SCD/Yeison warfarin per pharmacy pepcid Anemia- hb decresed to 9.6. Tremors- off Gabapentin.? due to ARF,CKD. Weakness- PT/OT. Problems: Plan Plan of Care Problems Medical Problems: (1) Acute on chronic renal failure Status: Acute Comment Review of Relevant I have reviewed the following items marquise (where applicable) has been applied. Labs Laboratory Tests Test 08/17/16 11:34 08/17/16 17:13 08/18/16 03:00 08/18/16 09:13 Glucose (Fingerstick) 104mg/dL (70-99) 123mg/dL (70-99) 93mg/dL (70-99) White Blood Count 6.0x10^3/uL (4.0-11.0) Red Blood Count 3.94x10^6/uL (4.30-5.70) Hemoglobin 9.8g/dL (13.0-17.5) Hematocrit 31.4% (39.0-53.0) Mean Corpuscular Volume 80fL (79-100) Mean Corpuscular Hemoglobin 25pg (25-35) Mean Corpuscular Hemoglobin Concent 31g/dL (31-37) Red Cell Distribution Width 19.4% (11.5-14.5) Platelet Count 103x10^3/uL (140-400) Neutrophils (%) (Auto) 75% (31-73) Lymphocytes (%) (Auto) 12% (24-48) Monocytes (%) (Auto) 11% (0-9) Eosinophils (%) (Auto) 1% (0-3) Basophils (%) (Auto) 0% (0-3) Neutrophils # (Auto) 4.5x10^3uL (1.8-7.7) Lymphocytes # (Auto) 0.7x10^3/uL (1.0-4.8) Monocytes # (Auto) 0.7x10^3/uL (0.0-1.1) Eosinophils # (Auto) 0.1x10^3/uL (0.0-0.7) Basophils # (Auto) 0.0x10^3/uL (0.0-0.2) Prothrombin Time 21.0SEC (11.7-14.0) Prothromb Time International Ratio 1.9 (0.8-1.1) Sodium Level 138mmol/L (136-145) Potassium Level 3.7mmol/L (3.5-5.1) Chloride Level 105mmol/L (98-107) Carbon Dioxide Level 20mmol/L (21-32) Anion Gap 13 (6-14) Blood Urea Nitrogen 110mg/dL (8-26) Creatinine 2.8mg/dL (0.7-1.3) Estimated GFR (Cockcroft-Gault) 27.0 Glucose Level 102mg/dL (70-99) Calcium Level 8.5mg/dL (8.5-10.1) Phosphorus Level 5.1mg/dL (2.6-4.7) Albumin 2.9g/dL (3.4-5.0) Microbiology 08/15/16 Urine Culture - Final, Complete 08/15/16 Urine Culture Result 1 (JV) - Final, Complete 08/15/16 Urine Culture Result 2 (JV) - Final, Complete 08/15/16 Antimicrobic Susceptibility - Final, Complete Medications Current Medications Sodium Chloride (Iv Sodium Chloride 0.9% 1000ml Bag) 1,000 ml @ 75 mls/hr [id number] IV Last administered on 08/17/16t 23:42; Start 08/17/16 at 10:15 Warfarin Sodium (Coumadin) 5 mg 1X WARF ONCE PO ; Start 08/17/16 at 16:00; Stop 08/17/16 at 16:01; Status DC Vitals/I & O Vital Sign - Last 24 Hours 08/17/16 08/17/16 08/17/16 08/17/16 11:21 15:04 17:18 19:00 Temp 98.5 98.1 97.6 98.5 98.1 97.6 Pulse 70 72 72 66 Resp 22 16 22 B/P 102/51 104/56 104/56 104/57 Pulse Ox 91 95 93 O2 Delivery Nasal Cannula Nasal Cannula Nasal Cannula O2 Flow Rate 2.0 1.0 1.0 08/17/16 08/17/16 08/18/16 08/18/16 20:10 23:04 03:25 07:00 Temp 97.9 98.1 98.6 97.9 98.1 98.6 Pulse 65 68 71 Resp 16 18 16 B/P 108/61 112/56 110/61 Pulse Ox 94 96 O2 Delivery Nasal Cannula Nasal Cannula Nasal Cannula Nasal Cannula O2 Flow Rate 1.0 1.0 1.0 1.0 08/18/16 08/18/16 09:46 09:46 Pulse 71 71 B/P 110/61 110/61 Intake and Output 08/17/16 08/17/16 08/18/16 15:00 23:00 07:00 Intake Total 200 ml 1008 ml 0 ml Output Total 425 ml 650 ml Balance 200 ml 583 ml -650 ml AFSHAN SLADE MD Aug 18, 2016 10:09
[2016-08-18] MEDS ORDERED: fentaNYL PF VIAL 100 MCG/2 ML VIAL ONE (10:29)
[2016-08-18] MEDS ORDERED: MIDAZOLAM HCL/PF 2 MG/2 ML VIAL. ONE (10:30)
[2016-08-18] MEDS ORDERED: VANCOMYCIN 1GM IVPB FOR OMNI 250 ML IRR ONE (11:30)
[2016-08-18] MEDS ORDERED: LIDOCAINE 2%/EPI 1:100,000 20 ML VIAL. IJ ONE (11:30)
[2016-08-18] MEDS ORDERED: fentaNYL PF VIAL 100 MCG/2 ML VIAL IV ONE (11:30)
[2016-08-18] MEDS ORDERED: MIDAZOLAM HCL/PF 2 MG/2 ML VIAL. IV ONE (11:30)
--- NOTE | 2016-08-18 11:40 | PDOC ---
MODERATE SEDATION ASSESSMENT RISKS/ALTERNATIVES Risks/Alternatives Risks and alternatives of this type of sedation and procedure discussed with: RISK/ALTERNATIVES: Patient H & P ON CHART H & P H & P on chart and reviewed for co-morbid conditions and appropriate labs. H&P ON CHART: Yes STATUS PREG STATUS ASSESSED: N/A MEDS/ALLERGIES REVIEWED Meds/Allergies Reviewed Medications and Allergies including time and route of recently administered narcotics and sedatives. MEDS/ALLERGIES REVIEWED: Yes ASA RATING ASA RATING: II AIRWAY ASSESSMENT Airway Assessment Airway patency, oral function limitations, presence of caps, crowns, dentures, partials, and ability to extend neck assessed. AIRWAY ASSESSMENT: Yes MALLAMPATI SCORE MALLAMPATI SCORE: II PRE-SEDATION ASSESSMENT PRE-SEDATION ASSESSMENT: Yes MORE LIPSCOMB MD Aug 18, 2016 11:40
--- NOTE | 2016-08-18 11:43 | PDOC ---
Exam Professor Of Communication Arts Professor Of Communication Arts Tim Staff Physical Therapist Staff Physical Therapist Cathy Royal Pre-Procedure Diagnosis Pre-Procedure Diagnosis 71 YO female with CHF---End stage dilated cardiomyopathy---Port requested for frequent dobutamine infusions. Post-Procedure Diagnosis Post-Procedure Diagnosis Same Procedure Performed Procedure Performed Sono/fluoro guided Power Port insertion Type of Anesthesia Type of Anesthesia Local + Mod sedation Estimated Blood Loss EBL: Minimal Drain/Tubes Drains/Tubes Rt IJ 8F tunneled Power Port Condition of Patient Condition of Patient Stable. No apparent complication. Disposition Disposition From IR to 256 for recovery. F/u with Dr Barajas. OK to use Power Port. Full report to follow. MORE LIPSCOMB MD Aug 18, 2016 11:43
--- NOTE | 2016-08-18 11:59 | PDOC ---
SUBJECTIVE ROS SONA/ ? ATN Just back from IR after infusaport placment CVS: no Orthopnea, no CP RESP: no SOB, no SEGOVIA GI: min Nausea, no Vomiting : no Dysuria, no Urgency OBJECTIVE Vital Signs Vital Signs Date Time Temp Pulse Resp B/P Pulse Ox O2 Delivery O2 Flow Rate FiO2 08/18/16 11:47 77 14 97 Nasal Cannula 2.0 08/18/16 09:46 110/61 08/18/16 07:00 98.6 98.6 I & 0 Intake and Output 08/18/16 07:00 Intake Total 1208 ml Output Total 1075 ml Balance 133 ml Intake Oral 580 ml IV Total 628 ml Output Urine Total 1075 ml PHYSICAL EXAM Physical Exam General Appearance: Awake Alert Oriented x 3 In no Distress Eyes: VIsion Unchanged Conjunctiva Normal EN: No EN Drainage Mucous Memb. moist Neck: no JVD + JVP Supple no Thyromegaly CVS: S1 S2 + Murmur No Gallop No Rub tr Edema Resp: no Rales no Rhonchi no Acc. Muscle use GI: BS +ve NO Bruit Non Tender Non Distended, obese with multiple Skin folds : no CVA tenderness; no Suprapubic Tenderness Assessment & Plan ARF: Current FLuid and E-lyte status does not necessitate emergent need for Dialysis. Will re-evaluate for Dialysis in am; creat is improving on Dobutamine gtt. May need HD if Uremic s/s ensue. I feel that she will continue to improve her Renal function as long as adequate Perfusion can be ensured. Mild Met Acidosis - watch trend. Do not want to use NaHCo3 currently due to sev CHF CKD III with Creat 1.5ish is probably her baseline (based on previous trend) Anemia:(Fe def) IV Iron, may need Epogen Transfuse as needed. HTN: Current BP meds reviewed. Ct Entresto for now BiV Dil Cmyoaphty - End stage dilated cardiomyopathy - Needs Dobutamine gtt as OPas discussed with Dr Queen Discussed Plan of Care and prognosis etc. at length withpt. COMMENT/RELEVANT DATA Meds Current Medications Medications (Trade) Dose Ordered Sig/Fernando Start Time Stop Time Status Last Admin Dose Admin Albumin Human (Albuminar) 100 ml @ 100 mls/hr 1X ONCE 08/16/16 09:00 08/16/16 09:59 DC 08/16/16 08:41 100 MLS/HR Amiodarone HCl (Cordarone) 200 mg DAILY 08/15/16 09:00 08/18/16 09:46 200 MG Aspirin (Ecotrin) 81 mg DAILY 08/15/16 09:00 08/18/16 09:46 81 MG Atorvastatin Calcium (Lipitor) 40 mg QHS 08/14/16 21:00 08/17/16 20:55 40 MG Carvedilol (Coreg) 6.25 mg BIDWMEALS 08/14/16 17:30 08/18/16 09:46 6.25 MG Ceftriaxone Sodium 1 gm/ Sodium Chloride 50 ml @ 100 mls/hr Q24H 08/17/16 10:00 08/18/16 09:47 100 MLS/HR Colestipol HCl (Colestid) 1 gm TID 08/14/16 21:00 08/18/16 10:08 DC 08/17/16 20:55 1 GM Dextrose (Dextrose 50%-Water Syringe) 12.5 gm PRN Q15MIN PRN 08/14/16 16:45 Dobutamine HCl/ Dextrose 250 ml @ 0 mls/hr CONT PRN PRN 08/15/16 14:53 08/17/16 23:42 0 MLS/HR Fentanyl Citrate (Fentanyl 2ml Vial) 100 mcg STK-MED ONCE 08/18/16 10:29 08/18/16 11:43 DC Furosemide (Lasix) 40 mg 1X ONCE 08/16/16 10:00 08/16/16 10:01 DC 08/16/16 09:45 40 MG Furosemide 40 mg 40 mg 1X ONCE 08/15/16 15:00 08/15/16 15:01 DC 08/15/16 16:22 40 MG Heparin Sodium (Porcine) (Hep Lock Adult) 500 unit STK-MED ONCE 08/18/16 09:29 08/18/16 11:42 DC Heparin Sodium/ Sodium Chloride 500 ml @ As Directed STK-MED ONCE 08/18/16 09:29 08/18/16 11:42 DC Insulin Aspart (Novolog) 0-5 UNITS TIDWMEALS 08/14/16 17:30 Lidocaine/ Epinephrine (Xylocaine 2%-Epi 1:100,000) 15 ml 1X ONCE 08/18/16 11:30 4/4/17 11:31 DC 08/18/16 11:44 15 ML Lidocaine/ Epinephrine 20 ml 20 ml STK-MED ONCE 08/18/16 09:29 08/18/16 11:42 DC Magnesium Sulfate/ Dextrose (Magnesium Sulfate PREMIX 2GM) 50 ml @ 25 mls/hr PRN DAILY PRN 08/15/16 15:30 Metoclopramide HCl (Reglan) 5 mg PRN BID PRN 08/14/16 16:45 08/16/16 10:25 DC Midazolam HCl (Versed) 2 mg STK-MED ONCE 08/18/16 10:30 08/18/16 11:43 DC Ondansetron HCl 4 mg 4 mg PRN Q6HRS PRN 08/16/16 20:30 08/18/16 09:44 4 MG Pantoprazole Sodium (Protonix) 40 mg DAILYAC 08/15/16 11:30 08/18/16 09:44 40 MG Sacubitril/ Valsartan (Entresto 24 Mg-26 Mg) 1 tab BID 08/14/16 21:00 08/17/16 10:16 DC 08/17/16 09:14 1 TAB Sodium Bicarbonate 50 meq 50 meq Q2HR 08/15/16 16:00 08/15/16 18:30 DC 08/15/16 18:20 50 MEQ Sodium Polystyrene Sulfonate (Kayexalate) 60 gm 1X ONCE 08/14/16 18:30 08/14/16 18:31 DC 08/14/16 18:51 60 GM Sodium Chloride (Iv Sodium Chloride 0.9% 1000ml Bag) 1,000 ml @ 75 mls/hr [id number] 08/17/16 10:15 08/17/16 23:42 75 MLS/HR Vancomycin HCl 250 ml @ As Directed STK-MED ONCE 08/18/16 09:29 08/18/16 11:42 DC Warfarin Sodium (Coumadin Per Pharmacy) 1 each PRN DAILY PRN 08/15/16 10:00 08/17/16 14:00 1 EACH Warfarin Sodium (Coumadin Per Physician) 1 each PRN DAILY PRN 08/14/16 17:15 08/15/16 09:54 DC Warfarin Sodium (Coumadin) 5 mg 1X WARF ONCE 08/17/16 16:00 08/17/16 16:01 DC Warfarin Sodium 4 mg 4 mg 1X WARF ONCE 08/15/16 16:00 08/15/16 16:01 DC 08/15/16 16:33 4 MG Lab Laboratory Tests Test 08/17/16 17:13 08/18/16 03:00 08/18/16 09:13 Glucose (Fingerstick) 123mg/dL (70-99) 93mg/dL (70-99) White Blood Count 6.0x10^3/uL (4.0-11.0) Red Blood Count 3.94x10^6/uL (4.30-5.70) Hemoglobin 9.8g/dL (13.0-17.5) Hematocrit 31.4% (39.0-53.0) Mean Corpuscular Volume 80fL (79-100) Mean Corpuscular Hemoglobin 25pg (25-35) Mean Corpuscular Hemoglobin Concent 31g/dL (31-37) Red Cell Distribution Width 19.4% (11.5-14.5) Platelet Count 103x10^3/uL (140-400) Neutrophils (%) (Auto) 75% (31-73) Lymphocytes (%) (Auto) 12% (24-48) Monocytes (%) (Auto) 11% (0-9) Eosinophils (%) (Auto) 1% (0-3) Basophils (%) (Auto) 0% (0-3) Neutrophils # (Auto) 4.5x10^3uL (1.8-7.7) Lymphocytes # (Auto) 0.7x10^3/uL (1.0-4.8) Monocytes # (Auto) 0.7x10^3/uL (0.0-1.1) Eosinophils # (Auto) 0.1x10^3/uL (0.0-0.7) Basophils # (Auto) 0.0x10^3/uL (0.0-0.2) Prothrombin Time 21.0SEC (11.7-14.0) Prothromb Time International Ratio 1.9 (0.8-1.1) Sodium Level 138mmol/L (136-145) Potassium Level 3.7mmol/L (3.5-5.1) Chloride Level 105mmol/L (98-107) Carbon Dioxide Level 20mmol/L (21-32) Anion Gap 13 (6-14) Blood Urea Nitrogen 110mg/dL (8-26) Creatinine 2.8mg/dL (0.7-1.3) Estimated GFR (Cockcroft-Gault) 27.0 Glucose Level 102mg/dL (70-99) Calcium Level 8.5mg/dL (8.5-10.1) Phosphorus Level 5.1mg/dL (2.6-4.7) Albumin 2.9g/dL (3.4-5.0) ALLI SELBY MD Aug 18, 2016 11:59
--- NOTE | 2016-08-18 13:41 | PDOC ---
PROGRESS NOTES Subjective Subjective Patient had catheter placed this morning and tolerated procedure well. She still complains of some nausea but no vomiting today. Also reports that she still feels very weak in the legs and has not walked, but otherwise denies any chest pain or shortness of breath. Objective Objective Vital Signs Date Time Temp Pulse Resp B/P Pulse Ox O2 Delivery O2 Flow Rate FiO2 08/18/16 11:47 77 14 97 Nasal Cannula 2.0 08/18/16 11:00 98.0 105/57 98.0 Intake and Output 08/18/16 07:00 Intake Total 1208 ml Output Total 1075 ml Balance 133 ml Intake Oral 580 ml IV Total 628 ml Output Urine Total 1075 ml Physical Exam Physical Exam GENERAL: resting comfortably in bed, no acute distress HEART: regular rate, systolic murmur noted CHEST: dressing on catheter place c/d/i Assessment Assessment No active symptoms at this time besides weakness and nausea. Problems Medical Problems: (1) Acute on chronic renal failure Status: Acute Plan Plan of Care Continue dobutamine drip for at least 24 hrs more. Will follow up with clinical social work therapist to set up at home infusions. Comment Review of Relevant I have reviewed the following items marquise (where applicable) has been applied. Labs Laboratory Tests Test 08/16/16 17:27 08/16/16 20:48 08/17/16 03:50 08/17/16 08:05 Glucose (Fingerstick) 137mg/dL (70-99) 125mg/dL (70-99) 95mg/dL (70-99) White Blood Count 5.1x10^3/uL (4.0-11.0) Red Blood Count 3.81x10^6/uL (4.30-5.70) Hemoglobin 9.5g/dL (13.0-17.5) Hematocrit 30.4% (39.0-53.0) Mean Corpuscular Volume 80fL (79-100) Mean Corpuscular Hemoglobin 25pg (25-35) Mean Corpuscular Hemoglobin Concent 31g/dL (31-37) Red Cell Distribution Width 18.8% (11.5-14.5) Platelet Count 118x10^3/uL (140-400) Neutrophils (%) (Auto) 69% (31-73) Lymphocytes (%) (Auto) 15% (24-48) Monocytes (%) (Auto) 12% (0-9) Eosinophils (%) (Auto) 3% (0-3) Basophils (%) (Auto) 1% (0-3) Neutrophils # (Auto) 3.5x10^3uL (1.8-7.7) Lymphocytes # (Auto) 0.8x10^3/uL (1.0-4.8) Monocytes # (Auto) 0.6x10^3/uL (0.0-1.1) Eosinophils # (Auto) 0.1x10^3/uL (0.0-0.7) Basophils # (Auto) 0.0x10^3/uL (0.0-0.2) Reticulocyte Count (auto) 1.1% (0.5-2.5) Prothrombin Time 18.0SEC (11.7-14.0) Prothromb Time International Ratio 1.6 (0.8-1.1) Sodium Level 138mmol/L (136-145) Potassium Level 3.5mmol/L (3.5-5.1) Chloride Level 103mmol/L (98-107) Carbon Dioxide Level 20mmol/L (21-32) Anion Gap 15 (6-14) Blood Urea Nitrogen 120mg/dL (8-26) Creatinine 3.1mg/dL (0.7-1.3) Estimated GFR (Cockcroft-Gault) 24.0 Glucose Level 96mg/dL (70-99) Calcium Level 8.3mg/dL (8.5-10.1) Phosphorus Level 5.2mg/dL (2.6-4.7) Iron Level 15ug/dL (65-175) Total Iron Binding Capacity 295ug/dL (250-450) Iron Saturation 5% (15-34) Ferritin 77ng/mL (26-388) Albumin 3.1g/dL (3.4-5.0) Test 08/17/16 11:34 08/17/16 17:13 08/18/16 03:00 08/18/16 09:13 Glucose (Fingerstick) 104mg/dL (70-99) 123mg/dL (70-99) 93mg/dL (70-99) White Blood Count 6.0x10^3/uL (4.0-11.0) Red Blood Count 3.94x10^6/uL (4.30-5.70) Hemoglobin 9.8g/dL (13.0-17.5) Hematocrit 31.4% (39.0-53.0) Mean Corpuscular Volume 80fL (79-100) Mean Corpuscular Hemoglobin 25pg (25-35) Mean Corpuscular Hemoglobin Concent 31g/dL (31-37) Red Cell Distribution Width 19.4% (11.5-14.5) Platelet Count 103x10^3/uL (140-400) Neutrophils (%) (Auto) 75% (31-73) Lymphocytes (%) (Auto) 12% (24-48) Monocytes (%) (Auto) 11% (0-9) Eosinophils (%) (Auto) 1% (0-3) Basophils (%) (Auto) 0% (0-3) Neutrophils # (Auto) 4.5x10^3uL (1.8-7.7) Lymphocytes # (Auto) 0.7x10^3/uL (1.0-4.8) Monocytes # (Auto) 0.7x10^3/uL (0.0-1.1) Eosinophils # (Auto) 0.1x10^3/uL (0.0-0.7) Basophils # (Auto) 0.0x10^3/uL (0.0-0.2) Prothrombin Time 21.0SEC (11.7-14.0) Prothromb Time International Ratio 1.9 (0.8-1.1) Sodium Level 138mmol/L (136-145) Potassium Level 3.7mmol/L (3.5-5.1) Chloride Level 105mmol/L (98-107) Carbon Dioxide Level 20mmol/L (21-32) Anion Gap 13 (6-14) Blood Urea Nitrogen 110mg/dL (8-26) Creatinine 2.8mg/dL (0.7-1.3) Estimated GFR (Cockcroft-Gault) 27.0 Glucose Level 102mg/dL (70-99) Calcium Level 8.5mg/dL (8.5-10.1) Phosphorus Level 5.1mg/dL (2.6-4.7) Albumin 2.9g/dL (3.4-5.0) Test 08/18/16 11:58 Glucose (Fingerstick) 101mg/dL (70-99) Laboratory Tests Test 08/17/16 17:13 08/18/16 03:00 08/18/16 09:13 08/18/16 11:58 Glucose (Fingerstick) 123mg/dL (70-99) 93mg/dL (70-99) 101mg/dL (70-99) White Blood Count 6.0x10^3/uL (4.0-11.0) Red Blood Count 3.94x10^6/uL (4.30-5.70) Hemoglobin 9.8g/dL (13.0-17.5) Hematocrit 31.4% (39.0-53.0) Mean Corpuscular Volume 80fL (79-100) Mean Corpuscular Hemoglobin 25pg (25-35) Mean Corpuscular Hemoglobin Concent 31g/dL (31-37) Red Cell Distribution Width 19.4% (11.5-14.5) Platelet Count 103x10^3/uL (140-400) Neutrophils (%) (Auto) 75% (31-73) Lymphocytes (%) (Auto) 12% (24-48) Monocytes (%) (Auto) 11% (0-9) Eosinophils (%) (Auto) 1% (0-3) Basophils (%) (Auto) 0% (0-3) Neutrophils # (Auto) 4.5x10^3uL (1.8-7.7) Lymphocytes # (Auto) 0.7x10^3/uL (1.0-4.8) Monocytes # (Auto) 0.7x10^3/uL (0.0-1.1) Eosinophils # (Auto) 0.1x10^3/uL (0.0-0.7) Basophils # (Auto) 0.0x10^3/uL (0.0-0.2) Prothrombin Time 21.0SEC (11.7-14.0) Prothromb Time International Ratio 1.9 (0.8-1.1) Sodium Level 138mmol/L (136-145) Potassium Level 3.7mmol/L (3.5-5.1) Chloride Level 105mmol/L (98-107) Carbon Dioxide Level 20mmol/L (21-32) Anion Gap 13 (6-14) Blood Urea Nitrogen 110mg/dL (8-26) Creatinine 2.8mg/dL (0.7-1.3) Estimated GFR (Cockcroft-Gault) 27.0 Glucose Level 102mg/dL (70-99) Calcium Level 8.5mg/dL (8.5-10.1) Phosphorus Level 5.1mg/dL (2.6-4.7) Albumin 2.9g/dL (3.4-5.0) Microbiology 08/15/16 Urine Culture - Final, Complete 08/15/16 Urine Culture Result 1 (JV) - Final, Complete 08/15/16 Urine Culture Result 2 (JV) - Final, Complete 08/15/16 Antimicrobic Susceptibility - Final, Complete Medications Current Medications Insulin Aspart (Novolog) 0-5 UNITS TIDWMEALS SQ ; Start 08/14/16 at 17:30 Dextrose 12.5 gm 12.5 gm PRN Q15MIN PRN IV SEE COMMENTS; Start 08/14/16 at 16: 45 Sodium Chloride (Iv Sodium Chloride 0.9% 1000ml Bag) 1,000 ml @ 100 mls/hr Q10H IV Last administered on 08/14/16 18:53; Start 08/14/16 at 17:30; Stop 08/15/16 at 03:29; Status DC Amiodarone HCl (Cordarone) 200 mg DAILY PO Last administered on 08/18/16 09:46 ; Start 08/15/16 at 09:00 Aspirin (Ecotrin) 81 mg DAILY PO Last administered on 08/18/16 09:46; Start 08/15/16 at 09:00 Atorvastatin Calcium (Lipitor) 40 mg QHS PO Last administered on 08/17/16 20:55 ; Start 08/14/16 at 21:00 Carvedilol (Coreg) 6.25 mg BIDWMEALS PO Last administered on 08/18/16 09:46; Start 08/14/16 at 17:30 Colestipol HCl (Colestid) 1 gm TID PO Last administered on 08/17/16 20:55; Start 08/14/16 at 21:00; Stop 08/18/16 at 10:08; Status DC Metoclopramide HCl (Reglan) 5 mg PRN BID PRN PO NAUSEA; Start 08/14/16 at 16:45 ; Stop 08/16/16 at 10:25; Status DC Sacubitril/ Valsartan (Entresto 24 Mg-26 Mg) 1 tab BID PO Last administered on 08/17/16 09:14; Start 08/14/16 at 21:00; Stop 08/17/16 at 10:16; Status DC Warfarin Sodium (Coumadin) 2.5 mg DAILY16 PO Last administered on 08/14/16 18: 50; Start 08/14/16 at 18:00; Stop 08/15/16 at 14:13; Status DC Warfarin Sodium (Coumadin Per Physician) 1 each PRN DAILY PRN MC SEE COMMENTS; Start 08/14/16 at 17:15; Stop 08/15/16 at 09:54; Status DC Sodium Polystyrene Sulfonate (Kayexalate) 60 gm 1X ONCE PO Last administered on 08/14/16 18:51; Start 08/14/16 at 18:30; Stop 08/14/16 at 18:31; Status DC Warfarin Sodium (Coumadin Per Pharmacy) 1 each PRN DAILY PRN MC SEE COMMENTS Last administered on 08/17/16 14:00; Start 08/15/16 at 10:00 Pantoprazole Sodium 40 mg 40 mg DAILYAC PO Last administered on 08/18/16 09:44 ; Start 08/15/16 at 11:30 Dobutamine HCl/ Dextrose 250 ml @ 0 mls/hr CONT PRN IV ; Start 08/15/16 at 14:00 ; Stop 08/15/16 at 14:53; Status DC Albumin Human (Albuminar) 100 ml @ 100 mls/hr 1X ONCE IV Last administered on 08/15/16 15:25; Start 08/15/16 at 14:00; Stop 08/15/16 at 14:59; Status DC Furosemide 40 mg 40 mg 1X ONCE IVP Last administered on 08/15/16 16:22; Start 08/15/16 at 15:00; Stop 08/15/16 at 15:01; Status DC Albumin Human (Albuminar) 100 ml @ 100 mls/hr 1X ONCE IV Last administered on 08/16/16 08:41; Start 08/16/16 at 09:00; Stop 08/16/16 at 09:59; Status DC Furosemide (Lasix) 40 mg 1X ONCE IVP Last administered on 08/16/16 09:45; Start 08/16/16 at 10:00; Stop 08/16/16 at 10:01; Status DC Warfarin Sodium 4 mg 4 mg 1X WARF ONCE PO Last administered on 08/15/16 16:33 ; Start 08/15/16 at 16:00; Stop 08/15/16 at 16:01; Status DC Dobutamine HCl/ Dextrose 250 ml @ 0 mls/hr CONT PRN PRN IV SEE I/O RECORD Last administered on 08/17/16 23:42; Start 08/15/16 at 14:53 Sodium Bicarbonate 50 meq 50 meq Q2HR IV Last administered on 08/15/16 18:20; Start 08/15/16 at 16:00; Stop 08/15/16 at 18:30; Status DC Magnesium Sulfate/ Dextrose (Magnesium Sulfate PREMIX 2GM) 50 ml @ 25 mls/hr PRN DAILY PRN IV for Mag < 1.7 on am labs; Start 08/15/16 at 15:30 Warfarin Sodium (Coumadin) 4 mg 1X WARF ONCE PO Last administered on 08/16/16 17:28; Start 08/16/16 at 16:00; Stop 08/16/16 at 16:01; Status DC Ondansetron HCl 4 mg 4 mg PRN Q6HRS PRN IV nausea Last administered on 09:44; Start 08/16/16 at 20:30 Ceftriaxone Sodium 1 gm/ Sodium Chloride 50 ml @ 100 mls/hr Q24H IV Last administered on 08/18/16 09:47; Start 08/17/16 at 10:00 Sodium Chloride (Iv Sodium Chloride 0.9% 1000ml Bag) 1,000 ml @ 75 mls/hr [id number] IV Last administered on 08/17/16 23:42; Start 08/17/16 at 10:15 Warfarin Sodium (Coumadin) 5 mg 1X WARF ONCE PO ; Start 08/17/16 at 16:00; Stop 08/17/16 at 16:01; Status DC Heparin Sodium/ Sodium Chloride 1,000 unit 1X ONCE IART Last administered on 11:45; Start 08/18/16 at 11:30; Stop 08/18/16 at 11:31; Status DC Midazolam HCl (Versed) 2 mg 1X ONCE IV Last administered on 08/18/16 11:46; Start 08/18/16 at 11:30; Stop 08/18/16 at 11:31; Status DC Fentanyl Citrate (Fentanyl 2ml Vial) 100 mcg 1X ONCE IV Last administered on 11:47; Start 08/18/16 at 11:30; Stop 08/18/16 at 11:31; Status DC Lidocaine/ Epinephrine 15 ml 15 ml 1X ONCE IJ Last administered on 08/18/16 11 :44; Start 08/18/16 at 11:30; Stop 08/18/16 at 11:31; Status DC Vancomycin HCl 250 ml @ 250 mls/hr 1X ONCE IRR Last administered on 08/18/16 11:45; Start 08/18/16 at 11:30; Stop 08/18/16 at 12:29; Status DC Heparin Sodium (Porcine) (Hep Lock Adult) 500 unit 1X ONCE IV Last administered on 08/18/16 11:46; Start 08/18/16 at 11:30; Stop 08/18/16 at 11:31; Status DC Heparin Sodium (Porcine) (Hep Lock Adult) 500 unit STK-MED ONCE IV ; Start at 09:29; Stop 08/18/16 at 11:42; Status DC Lidocaine/ Epinephrine 20 ml 20 ml STK-MED ONCE .ROUTE ; Start 08/18/16 at 09:29 ; Stop 08/18/16 at 11:42; Status DC Heparin Sodium/ Sodium Chloride 500 ml @ As Directed STK-MED ONCE .ROUTE ; Start 08/18/16 at 09:29; Stop 08/18/16 at 11:42; Status DC Vancomycin HCl 250 ml @ As Directed STK-MED ONCE .ROUTE ; Start 08/18/16 at 09: 29; Stop 08/18/16 at 11:42; Status DC Fentanyl Citrate (Fentanyl 2ml Vial) 100 mcg STK-MED ONCE .ROUTE ; Start at 10:29; Stop 08/18/16 at 11:43; Status DC Midazolam HCl 2 mg 2 mg STK-MED ONCE .ROUTE ; Start 08/18/16 at 10:30; Stop at 11:43; Status DC Iron Sucrose/ Sodium Chloride (Venofer/Iv Sodium Chloride 0.9% 100ml) 110 ml @ 55 mls/hr 3X/WEEK IV ; Start 08/19/16 at 09:00; Stop 08/28/16 at 10:59 Active Scripts Active Entresto 24 mg-26 mg Tablet (Sacubitril/Valsartan) 1 Each Tablet 1 Tab PO BID Coumadin (Warfarin Sodium) 2.5 Mg Tablet 2.5 Mg PO DAILY16 Reported Reglan (Metoclopramide Hcl) 10 Mg Tablet 5 Mg PO PRN BID PRN Atorvastatin Calcium 40 Mg Tablet 1 Tab PO DAILY Colestid (Colestipol Hcl) 1 Gm Tablet 1 Gm PO TID Pacerone (Amiodarone Hcl) 200 Mg Tablet 200 Mg PO DAILY Lasix (Furosemide) 80 Mg Tablet 1 Tab PO BID Gabapentin 100 Mg Capsule 1 Cap PO TID Aspir 81 (Aspirin) 81 Mg Tablet.dr 1 Tab PO DAILY Coreg (Carvedilol) 6.25 Mg Tablet 1 Tab PO BID K-Tab ER (Potassium Chloride) 20 Meq Tablet.er 20 Meq PO BID Vitals/I & O Vital Sign - Last 24 Hours 08/17/16 08/17/16 08/17/16 08/17/16 15:04 17:18 19:00 20:10 Temp 98.1 97.6 98.1 97.6 Pulse 72 72 66 Resp 16 22 B/P 104/56 104/56 104/57 Pulse Ox 95 93 O2 Delivery Nasal Cannula Nasal Cannula Nasal Cannula O2 Flow Rate 1.0 1.0 1.0 08/17/16 08/18/16 08/18/16 08/18/16 23:04 03:25 07:00 08:00 Temp 97.9 98.1 98.6 97.9 98.1 98.6 Pulse 65 68 71 Resp 16 18 16 B/P 108/61 112/56 110/61 Pulse Ox 94 96 O2 Delivery Nasal Cannula Nasal Cannula Nasal Cannula Nasal Cannula O2 Flow Rate 1.0 1.0 1.0 1.0 08/18/16 08/18/16 08/18/16 08/18/16 09:46 09:46 11:00 11:47 Temp 98.0 98.0 Pulse 71 71 70 Resp 16 14 B/P 110/61 110/61 105/57 Pulse Ox 88 99 O2 Delivery Nasal Cannula O2 Flow Rate 2.0 08/18/16 11:47 Pulse 77 Resp 14 Pulse Ox 97 O2 Delivery Nasal Cannula O2 Flow Rate 2.0 Intake and Output 08/17/16 08/17/16 08/18/16 15:00 23:00 07:00 Intake Total 200 ml 1008 ml 0 ml Output Total 425 ml 650 ml Balance 200 ml 583 ml -650 ml HEATHER CHERRY MD Aug 18, 2016 13:41
[2016-08-18] MEDS: IV NORMAL SALINE 1000ML BAG 1,000 ML IV SCH (13:56)
[2016-08-18] MEDS ORDERED: WARFARIN 5 MG TABLET. PO ONE (16:00)
[2016-08-18] MEDS: ATORVASTATIN CALCIUM 40 MG TABLET. PO SCH (21:35)
[2016-08-19] MEDS: IV NORMAL SALINE 1000ML BAG 1,000 ML IV SCH ×2 (01:06→16:58)
[2016-08-19 03:26] VITALS: BP 106/56
[2016-08-19 05:10] LABS: BASO % 0 % (0-3); EOS % 2 % (0-3); HEMOGLOBIN 9.4 g/dL (13.0-17.5); LYMPH # 0.6 x10^3/uL (1.0-4.8); LYMPH % 9 % (24-48); MEAN CORPUSCULAR HEMOGLOBIN 25 pg (25-35); MEAN CORPUSCULAR HGB CONC 31 g/dL (31-37); MEAN CORPUSCULAR VOLUME 80 fL (79-100); MONO % 10 % (0-9); NEUT % 80 % (31-73); PLATELET COUNT 111 x10^3/uL (140-400); RED BLOOD COUNT 3.77 x10^6/uL (4.30-5.70); RED CELL DISTRIBUTION WIDTH 19.5 % (11.5-14.5); WHITE BLOOD COUNT 6.7 x10^3/uL (4.0-11.0)
[2016-08-19 05:21] LABS: INR 2.5 (0.8-1.1); PROTHROMBIN TIME PATIENT 25.9 SEC (11.7-14.0)
[2016-08-19 05:24] LABS: ALBUMIN 2.6 g/dL (3.4-5.0); CALCIUM 8.3 mg/dL (8.5-10.1); CREATININE 2.8 mg/dL (0.7-1.3); POTASSIUM 3.9 mmol/L (3.5-5.1)
[2016-08-19 06:58] VITALS: BP 100/59
--- NOTE | 2016-08-19 07:30 | RAD ---
Ultrasound and fluoroscopy guided right IJ power port insertion Indication: 71-year-old female with congestive heart failure with end-stage dilated cardiomyopathy. Power port insertion has been requested by cardiology frequent dobutamine infusions. Fluoroscopy time: 1.3 minutes Kerma-area product: 3 Gycm2 Moderate sedation: 55 minutes moderate sedation was provided utilizing a total of 2 mg Versed and 100 mcg fentanyl, IV. The patient was appropriately monitored by a qualified independent observer throughout the course of moderate sedation. Antibiotic: The patient was receiving scheduled Rocephin at the procedure start time. No additional prophylactic antibiotic was considered indicated. Consent: The procedure was explained in its entirety to the patient and/or the patient's designated abrasives sales representative by a member of the treatment team. This included a discussion of risks and benefits and commonly accepted alternatives to the procedure, as well as expected consequences of no treatment at all. Discussion of risks included, but was not limited to, those that are most frequent and those that are rare, but possibly severe or life-threatening, as well as the possibility of unforeseen complications. Sterility: All elements of maximal sterile barrier technique, including the use of a cap, mask, sterile gown, sterile gloves, large sterile sheet, appropriate hand hygiene, and 2% chlorhexidine for cutaneous antisepsis (or acceptable alternative antiseptic per current guidelines) were utilized. Procedure: Informed consent was obtained from the patient. He was placed supine on the angiography table. Preliminary ultrasound examination of right neck revealed wide patency of right internal jugular vein, which was documented with a single hard copy ultrasound image. Right neck and upper chest were then prepped and draped in the usual sterile fashion, utilizing all elements of maximal sterile barrier technique, as described above. Moderate sedation was provided with IV Versed and fentanyl. 1 g Ancef was given IV, prophylactically. Using aseptic technique and local anesthesia, a small skin incision was made lateral to right internal jugular vein, just above clavicle. Using aseptic technique, local anesthesia, direct ultrasound guidance, and the micropuncture system, successful percutaneous entry was achieved into right internal jugular vein. The right IJ venostomy tract was then dilated and the 8 [place] catheter from a [employer] power port system was easily advanced centrally through an 8.5 [place] peel-away sheath, and was positioned with this tip at the level of upper right atrium utilizing fluoroscopic guidance. A skin site suitable for placement of the power port body was then selected and marked along upper anterior aspect of right chest, overlying anterior aspect of right second rib. Using aseptic technique and local anesthesia, a horizontally oriented skin incision was made in this location. A subcutaneous chest wall pocket was then created and was packed with vancomycin soaked gauze. A subcutaneous tunnel was then fashioned between the chest wall pocket and the initial supraclavicular incision. The 8 [place] power port catheter was then pulled through the subcutaneous tunnel from superior to inferior, utilizing the tunneling device provided. The catheter was then trimmed to an appropriate length and was connected to the power port body, which had been previously flushed with, and soaked in, vancomycin solution. The vancomycin soaked gauze was then removed from the chest wall pocket, which was then copiously irrigated with vancomycin solution. The power port body was then easily introduced into the chest wall pocket and was secured in place utilizing two 2-0 Vicryl sutures. The power port was then accessed utilizing a Wills needle, was documented to flush and aspirate normally, and was packed with heparinized saline. The chest incision was then closed with 2-0 Vicryl, 4-0 Vicryl, Steri-Strips, and sterile dressing. The small supraclavicular incision was closed with 4-0 Vicryl, Steri-Strips, and sterile dressing. Patient tolerated the procedure well without apparent complication. Satisfactory position of the power port was confirmed with a single fluoroscopic spot image. Impression: Successful, uneventful ultrasound and fluoroscopy guided placement of right IJ 8 [place] tunneled power port, as described.
[2016-08-19] MEDS: INSULIN ASPART 300 UNITS/3 ML INSULN.PEN SQ SCH ×3 (08:00→17:00)
[2016-08-19] MEDS: CARVEDILOL 6.25 MG TABLET. PO SCH ×2 (08:15→17:00)
[2016-08-19] MEDS: PANTOPRAZOLE 40 MG TABLET.DR. PO SCH (08:15)
[2016-08-19] MEDS: ASPIRIN ENTERIC COATED 81 MG TABLET.DR. PO SCH (08:15)
[2016-08-19] MEDS: AMIODARONE HCL 200 MG TABLET. PO SCH (08:15)
[2016-08-19] MEDS: IRON SUCROSE COMPLEX 200 MG in IV NORMAL SALINE 100ML 100 ML IV SCH ×2 (08:16→14:35)
[2016-08-19] MEDS: ONDANSETRON PF 4 MG/2 ML VIAL. IV PRN (08:25)
--- NOTE | 2016-08-19 08:53 | CONS ---
DATE OF CONSULTATION: 08/18/2016 ATTENDING PHYSICIAN: Dr. Garcia. The patient was seen at the request of Dr. Garcia for rehab evaluation. HISTORY OF PRESENT ILLNESS: This is a 71-year-old right-handed female patient, who was admitted on 08/15/2016 with acute renal failure and qucyt-hc-[id number] systolic congestive heart failure. She was sent to the hospital from office, labs were done on 08/05/2016 revealed BUN of 110 and creatinine 6. Labs after admission, sodium 133, potassium 6.6, BUN 142, creatinine 3.8. The patient was given Kayexalate for elevated potassium, started on IV fluids. She is on Coumadin and her INR is 1.2. Chest x-ray revealed mild [id number] congestive heart failure. The patient since admission is being treated for acute renal failure superimposed on a chronic renal insufficiency, chronic kidney disease stage ____, also history of congestive heart failure with ejection fraction of 10%. ICM with AICD placement, hypertension, valve insufficiency, [id number] mitral regurgitation, moderate pulmonary hypertension, diabetes mellitus type 2, diet control, status post permanent pacemaker placement, cholecystectomy, also had tubal with 1 tube removed. FAMILY HISTORY: Heart disease and hypertension. SOCIAL HISTORY: The patient lives with her grandson, who had cerebral palsy, in [facility] and she had 1 step entry. Prior to the present hospitalization, she is not using an assistive devices, she had a quad cane in her car, but does not use it. She also had a roller walker at home, but does not use it. The patient admits hip area pain. The patient is being followed by Physical Therapy and Occupational therapies. She did walk for about 40 feet using a roller walker with physical therapy this afternoon. PHYSICAL EXAMINATION: Today revealed an elderly female, she is alert, oriented to time, place, person and circumstance and follows commands appropriately, moves all 4 extremities voluntarily where she had generalized muscle weakness, more so up hand intrinsic muscles. Deep tendon reflexes are decreased overall with absent ankle jerks. She had equal perception of touch and pinprick sensation bilaterally. She had crepitus on range of motion of both knee joints without any obvious knee joint effusion. She had limitation of right hip joint external rotation. No tenderness to palpation over lumbar spine area or trochanteric bursa area noted. She requires help with bed mobility. I have not tested her transfers or ambulation skills at present time. ASSESSMENT: An elderly female with 1. Igdod-ia-xyckzoo congestive heart failure. 2. Acute kidney failure superimposed on chronic kidney disease, stage ____. 3. Diabetes mellitus with peripheral neuropathy. 4. Hypertension. 5. Valve insufficiency. 6. Pulmonary hypertension. 7. Cardiac ejection fraction of only 10%. 8. Ischemic cardiomyopathy and AICD placement in the past. 9. Degenerative joint disease of right hip. 10. Degenerative joint disease of both knee joints without any pain in her knee joints. RECOMMENDATION: To obtain x-rays of her pelvis and right hip to determine the extents of her degenerative changes in the hip. Agree with the plan for a physical therapy and occupational therapy to consider transfer to rehab or [facility] care unit for continued care if needed when she is medically stable. Dr. Garcia, I appreciate asking me to participate in the care of this interesting patient. I will be glad to follow her with you as needed for her rehabilitation. MADDIE AMBROSE MD DR: SHANIQUA/david JOB#: [id number] / [id number]
--- NOTE | 2016-08-19 10:36 | PDOC ---
PROGRESS NOTES Subjective Subjective Olive cath placed yesterday. Objective Objective Vital Signs Date Time Temp Pulse Resp B/P Pulse Ox O2 Delivery O2 Flow Rate FiO2 08/19/16 08:15 67 100/59 08/19/16 06:58 98.1 18 92 Room Air 98.1 08/18/16 19:21 2.0 Intake and Output 08/19/16 07:00 Intake Total 1300 ml Output Total 450 ml Balance 850 ml Intake Oral 650 ml IV Total 650 ml Output Urine Total 450 ml Physical Exam Abdomen: Normal bowel sounds, Soft Heart: Regular rate, Normal S1 Extremities: No clubbing General: Alert HEENT: Atraumatic Lungs: Clear to auscultation MUSCULOSKELETAL: No joint tenderness, No deformity, No muscular tenderness noted Neck: Supple Neuro: Normal speech Psych/Mental Status: Mood NL Skin: No rashes, No significant lesion COMMENT cervantes removed Diagnosis Problem List Problems Medical Problems: (1) Acute on chronic renal failure Status: Acute Assessment Assessment 1. ARF with CKD II ATN SONA ,cr 2.8 no change from yesterday 2. a/c systolic CHF ICM EF 10% AICD 3. HTN 4. DM II with CKD II diet control 5. hyperlipidemia 6. mild to mod MR 7. moderate pulmonary HTN 8. severe weakness and debility 9. metabolic encephalopathy POA 10. moderate chronic PCL malnutrition PLAN: Home or SNU next 1-2 days spoke with cardiology today. Rocephin for UTI,E Coli olive cath placement yesterday cautious hydrate with IV fluids, monitor kidney function.cr 2.9 down from 3.9 CHF on dobutamine cardiology consult appreciated d/c enestro On IV Dobutamine. Weight last discharge 150.37 Admit wt 157.5 ARF with CKD renal consult lasix as needed Labs pending. DM II FSBS/low intensity SSI DVT/GI prophylaxis SCD/Yeison warfarin per pharmacy pepcid Anemia- hb decresed to 9.6. Tremors- off Gabapentin.? due to ARF,CKD. Weakness- PT/OT. Problems: Plan Plan of Care Problems Medical Problems: (1) Acute on chronic renal failure Status: Acute Comment Review of Relevant I have reviewed the following items marquise (where applicable) has been applied. Labs Laboratory Tests Test 08/18/16 11:58 08/18/16 16:31 08/18/16 21:02 08/19/16 05:00 Glucose (Fingerstick) 101mg/dL (70-99) 126mg/dL (70-99) 141mg/dL (70-99) White Blood Count 6.7x10^3/uL (4.0-11.0) Red Blood Count 3.77x10^6/uL (4.30-5.70) Hemoglobin 9.4g/dL (13.0-17.5) Hematocrit 30.0% (39.0-53.0) Mean Corpuscular Volume 80fL (79-100) Mean Corpuscular Hemoglobin 25pg (25-35) Mean Corpuscular Hemoglobin Concent 31g/dL (31-37) Red Cell Distribution Width 19.5% (11.5-14.5) Platelet Count 111x10^3/uL (140-400) Neutrophils (%) (Auto) 80% (31-73) Lymphocytes (%) (Auto) 9% (24-48) Monocytes (%) (Auto) 10% (0-9) Eosinophils (%) (Auto) 2% (0-3) Basophils (%) (Auto) 0% (0-3) Neutrophils # (Auto) 5.4x10^3uL (1.8-7.7) Lymphocytes # (Auto) 0.6x10^3/uL (1.0-4.8) Monocytes # (Auto) 0.6x10^3/uL (0.0-1.1) Eosinophils # (Auto) 0.1x10^3/uL (0.0-0.7) Basophils # (Auto) 0.0x10^3/uL (0.0-0.2) Prothrombin Time 25.9SEC (11.7-14.0) Prothromb Time International Ratio 2.5 (0.8-1.1) Sodium Level 137mmol/L (136-145) Potassium Level 3.9mmol/L (3.5-5.1) Chloride Level 103mmol/L (98-107) Carbon Dioxide Level 20mmol/L (21-32) Anion Gap 14 (6-14) Blood Urea Nitrogen 105mg/dL (8-26) Creatinine 2.8mg/dL (0.7-1.3) Estimated GFR (Cockcroft-Gault) 27.0 Glucose Level 103mg/dL (70-99) Calcium Level 8.3mg/dL (8.5-10.1) Phosphorus Level 5.0mg/dL (2.6-4.7) Albumin 2.6g/dL (3.4-5.0) Microbiology 08/15/16 Urine Culture - Final, Complete 08/15/16 Urine Culture Result 1 (JV) - Final, Complete 08/15/16 Urine Culture Result 2 (JV) - Final, Complete 08/15/16 Antimicrobic Susceptibility - Final, Complete Medications Current Medications Fentanyl Citrate (Fentanyl 2ml Vial) 100 mcg 1X ONCE IV Last administered on 11:47; Start 08/18/16 at 11:30; Stop 08/18/16 at 11:31; Status DC Heparin Sodium (Porcine) 500 unit 500 unit 1X ONCE IV Last administered on 08/18 11:46; Start 08/18/16 at 11:30; Stop 08/18/16 at 11:31; Status DC Heparin Sodium/ Sodium Chloride 1,000 unit 1X ONCE IART Last administered on 11:45; Start 08/18/16 at 11:30; Stop 08/18/16 at 11:31; Status DC Iron Sucrose/ Sodium Chloride (Venofer/Iv Sodium Chloride 0.9% 100ml) 110 ml @ 55 mls/hr 3X/WEEK IV ; Start 08/19/16 at 09:00; Stop 08/28/16 at 10:59 Lidocaine/ Epinephrine 15 ml 15 ml 1X ONCE IJ Last administered on 08/18/16 11 :44; Start 08/18/16 at 11:30; Stop 08/18/16 at 11:31; Status DC Midazolam HCl (Versed) 2 mg 1X ONCE IV Last administered on 08/18/16 11:46; Start 08/18/16 at 11:30; Stop 08/18/16 at 11:31; Status DC Vancomycin HCl 250 ml @ 250 mls/hr 1X ONCE IRR Last administered on 08/18/16 11:45; Start 08/18/16 at 11:30; Stop 08/18/16 at 12:29; Status DC Warfarin Sodium (Coumadin) 5 mg 1X WARF ONCE PO Last administered on 08/18/16 17:56; Start 08/18/16 at 16:00; Stop 08/18/16 at 16:01; Status DC Vitals/I & O Vital Sign - Last 24 Hours 08/18/16 08/18/16 08/18/16 08/18/16 11:00 11:47 11:47 12:00 Temp 98.0 98.0 Pulse 70 77 65 Resp 16 14 14 B/P 105/57 105/57 Pulse Ox 88 99 97 O2 Delivery Nasal Cannula Nasal Cannula O2 Flow Rate 2.0 2.0 08/18/16 08/18/16 08/18/16 08/18/16 12:15 12:30 12:45 13:00 Pulse 66 59 71 66 B/P 106/58 104/59 97/59 106/60 08/18/16 08/18/16 08/18/16 08/18/16 13:30 14:00 15:00 15:06 Temp 97.7 97.7 Pulse 77 68 66 69 Resp 20 B/P 111/56 111/64 105/58 104/59 Pulse Ox 90 O2 Delivery Room Air 08/18/16 08/18/16 08/18/16 08/18/16 16:00 17:00 17:56 19:20 Temp 97.5 97.5 Pulse 74 64 69 64 Resp 16 B/P 99/50 93/53 104/59 100/60 Pulse Ox 96 O2 Delivery Room Air 08/18/16 08/18/16 08/19/16 08/19/16 19:21 23:03 03:26 06:58 Temp 97.9 97.6 98.1 97.9 97.6 98.1 Pulse 61 65 67 Resp 18 18 18 B/P 97/50 106/56 100/59 Pulse Ox 94 94 92 O2 Delivery Nasal Cannula Room Air Room Air Room Air O2 Flow Rate 2.0 08/19/16 08/19/16 08:15 08:15 Pulse 67 67 B/P 100/59 100/59 Intake and Output 08/18/16 08/18/16 08/19/16 15:00 23:00 07:00 Intake Total 650 ml 650 ml Output Total 350 ml 100 ml Balance 300 ml 550 ml AFSHAN SLADE MD Aug 19, 2016 10:36
[2016-08-19 11:00] VITALS: BP 87/53
--- NOTE | 2016-08-19 11:17 | PDOC ---
SUBJECTIVE ROS SONA/ ? CKD III Feeling OK, feels stronger on her feet but does not think she is ready to go home yet CVS: no Orthopnea, no CP RESP: no SOB, no SEGOVIA GI: no Nausea, n Vomiting : on Dysuria, no Urgency OBJECTIVE Vital Signs Vital Signs Date Time Temp Pulse Resp B/P Pulse Ox O2 Delivery O2 Flow Rate FiO2 08/19/16 08:15 67 100/59 08/19/16 06:58 98.1 18 92 Room Air 98.1 08/18/16 19:21 2.0 I & 0 Intake and Output 08/19/16 07:00 Intake Total 1300 ml Output Total 450 ml Balance 850 ml Intake Oral 650 ml IV Total 650 ml Output Urine Total 450 ml PHYSICAL EXAM Physical Exam General Appearance: Awake Alert Oriented x 3 In no Distress Eyes: VIsion Unchanged Conjunctiva Normal EN: No EN Drainage Mucous Memb. moist Neck: no JVD + JVP Supple no Thyromegaly CVS: S1 S2 + Murmur No Gallop No Rub tr Edema Resp: no Rales no Rhonchi no Acc. Muscle use GI: BS +ve NO Bruit Non Tender Non Distended, obese with multiple Skin folds : no CVA tenderness; no Suprapubic Tenderness Assessment & Plan ARF: VMN from ES CMyoapathy. Element of ATN cannot be ruled out. Current FLuid and E-lyte status does not necessitate emergent need for Dialysis. Will re- evaluate for Dialysis in am; creat is improving on Dobutamine gtt. I feel that she will continue to improve her Renal function as long as adequate Perfusion can be ensured, with Ionotropic support. Not sure that she will do great on HD either UO is poor - billy was d/jeromy - Bl Scan later today. Laxative regimen and reval. Ct Dobutamine and IVF for now. may need small IVF Boluses if she remains oliguric, resp status is acceptable. Mild Met Acidosis - watch trend. Do not want to use NaHCo3 currently due to sev Cmyopahty CKD III with Creat 1.5ish or worse (after CHF) is probably her baseline (based on previous trend) Anemia:(Fe def) IV Iron, may need Epogen Transfuse as needed. HTN: Current BP meds reviewed. Ct Entresto as long as BP can tolerate BiV Dil Cmyoaphty - End stage dilated cardiomyopathy - felt to Need Dobutamine gtt as OP as discussed with Dr Barajas Discussed Plan of Care and prognosis etc. at length with pt. Prognosis is highly guarded COMMENT/RELEVANT DATA Meds Current Medications Medications (Trade) Dose Ordered Sig/Fernando Start Time Stop Time Status Last Admin Dose Admin Albumin Human (Albuminar) 100 ml @ 100 mls/hr 1X ONCE 08/16/16 09:00 08/16/16 09:59 DC 08/16/16 08:41 100 MLS/HR Amiodarone HCl (Cordarone) 200 mg DAILY 08/15/16 09:00 08/19/16 08:15 200 MG Aspirin (Ecotrin) 81 mg DAILY 08/15/16 09:00 08/19/16 08:15 81 MG Atorvastatin Calcium (Lipitor) 40 mg QHS 08/14/16 21:00 08/18/16 21:35 40 MG Carvedilol (Coreg) 6.25 mg BIDWMEALS 08/14/16 17:30 08/19/16 08:15 6.25 MG Ceftriaxone Sodium 1 gm/ Sodium Chloride 50 ml @ 100 mls/hr Q24H 08/17/16 10:00 08/18/16 09:47 100 MLS/HR Colestipol HCl (Colestid) 1 gm TID 08/14/16 21:00 08/18/16 10:08 DC 08/17/16 20:55 1 GM Dextrose (Dextrose 50%-Water Syringe) 12.5 gm PRN Q15MIN PRN 08/14/16 16:45 Dobutamine HCl/ Dextrose 250 ml @ 0 mls/hr CONT PRN PRN 08/15/16 14:53 08/19/16 08:29 10.7 MLS/HR Fentanyl Citrate (Fentanyl 2ml Vial) 100 mcg STK-MED ONCE 08/18/16 10:29 08/18/16 11:43 DC Furosemide (Lasix) 40 mg 1X ONCE 08/16/16 10:00 08/16/16 10:01 DC 08/16/16 09:45 40 MG Furosemide 40 mg 40 mg 1X ONCE 08/15/16 15:00 08/15/16 15:01 DC 08/15/16 16:22 40 MG Heparin Sodium (Porcine) (Hep Lock Adult) 500 unit STK-MED ONCE 08/18/16 09:29 08/18/16 11:42 DC Heparin Sodium/ Sodium Chloride 500 ml @ As Directed STK-MED ONCE 08/18/16 09:29 08/18/16 11:42 DC Insulin Aspart (Novolog) 0-5 UNITS TIDWMEALS 08/14/16 17:30 Iron Sucrose/ Sodium Chloride (Venofer/Iv Sodium Chloride 0.9% 100ml) 110 ml @ 55 mls/hr 3X/WEEK 08/19/16 09:00 08/28/16 10:59 Lidocaine/ Epinephrine (Xylocaine 2%-Epi 1:100,000) 15 ml 1X ONCE 08/18/16 11:30 08/18/16 11:31 DC 08/18/16 11:44 15 ML Lidocaine/ Epinephrine 20 ml 20 ml STK-MED ONCE 08/18/16 09:29 08/18/16 11:42 DC Magnesium Sulfate/ Dextrose (Magnesium Sulfate PREMIX 2GM) 50 ml @ 25 mls/hr PRN DAILY PRN 08/15/16 15:30 Metoclopramide HCl (Reglan) 5 mg PRN BID PRN 08/14/16 16:45 08/16/16 10:25 DC Midazolam HCl (Versed) 2 mg 1X ONCE 08/18/16 11:30 08/18/16 11:31 DC 08/18/16 11:46 2 MG Midazolam HCl 2 mg 2 mg STK-MED ONCE 08/18/16 10:30 08/18/16 11:43 DC Ondansetron HCl 4 mg 4 mg PRN Q6HRS PRN 08/16/16 20:30 08/19/16 08:25 4 MG Pantoprazole Sodium (Protonix) 40 mg DAILYAC 08/15/16 11:30 08/19/16 08:15 40 MG Sacubitril/ Valsartan (Entresto 24 Mg-26 Mg) 1 tab BID 08/14/16 21:00 08/17/16 10:16 DC 08/17/16 09:14 1 TAB Sodium Bicarbonate 50 meq 50 meq Q2HR 08/15/16 16:00 08/15/16 18:30 DC 08/15/16 18:20 50 MEQ Sodium Polystyrene Sulfonate (Kayexalate) 60 gm 1X ONCE 08/14/16 18:30 08/14/16 18:31 DC 08/14/16 18:51 60 GM Sodium Chloride (Iv Sodium Chloride 0.9% 1000ml Bag) 1,000 ml @ 75 mls/hr [id number] 08/17/16 10:15 08/19/16 01:06 75 MLS/HR Vancomycin HCl 250 ml @ As Directed STK-MED ONCE 08/18/16 09:29 08/18/16 11:42 DC Warfarin Sodium (Coumadin Per Pharmacy) 1 each PRN DAILY PRN 08/15/16 10:00 08/18/16 15:31 1 EACH Warfarin Sodium (Coumadin Per Physician) 1 each PRN DAILY PRN 08/14/16 17:15 08/15/16 09:54 DC Warfarin Sodium (Coumadin) 5 mg 1X WARF ONCE 08/18/16 16:00 08/18/16 16:01 DC 08/18/16 17:56 5 MG Warfarin Sodium 4 mg 4 mg 1X WARF ONCE 08/15/16 16:00 08/15/16 16:01 DC 08/15/16 16:33 4 MG Lab Laboratory Tests Test 08/18/16 11:58 08/18/16 16:31 08/18/16 21:02 08/19/16 05:00 Glucose (Fingerstick) 101mg/dL (70-99) 126mg/dL (70-99) 141mg/dL (70-99) White Blood Count 6.7x10^3/uL (4.0-11.0) Red Blood Count 3.77x10^6/uL (4.30-5.70) Hemoglobin 9.4g/dL (13.0-17.5) Hematocrit 30.0% (39.0-53.0) Mean Corpuscular Volume 80fL (79-100) Mean Corpuscular Hemoglobin 25pg (25-35) Mean Corpuscular Hemoglobin Concent 31g/dL (31-37) Red Cell Distribution Width 19.5% (11.5-14.5) Platelet Count 111x10^3/uL (140-400) Neutrophils (%) (Auto) 80% (31-73) Lymphocytes (%) (Auto) 9% (24-48) Monocytes (%) (Auto) 10% (0-9) Eosinophils (%) (Auto) 2% (0-3) Basophils (%) (Auto) 0% (0-3) Neutrophils # (Auto) 5.4x10^3uL (1.8-7.7) Lymphocytes # (Auto) 0.6x10^3/uL (1.0-4.8) Monocytes # (Auto) 0.6x10^3/uL (0.0-1.1) Eosinophils # (Auto) 0.1x10^3/uL (0.0-0.7) Basophils # (Auto) 0.0x10^3/uL (0.0-0.2) Prothrombin Time 25.9SEC (11.7-14.0) Prothromb Time International Ratio 2.5 (0.8-1.1) Sodium Level 137mmol/L (136-145) Potassium Level 3.9mmol/L (3.5-5.1) Chloride Level 103mmol/L (98-107) Carbon Dioxide Level 20mmol/L (21-32) Anion Gap 14 (6-14) Blood Urea Nitrogen 105mg/dL (8-26) Creatinine 2.8mg/dL (0.7-1.3) Estimated GFR (Cockcroft-Gault) 27.0 Glucose Level 103mg/dL (70-99) Calcium Level 8.3mg/dL (8.5-10.1) Phosphorus Level 5.0mg/dL (2.6-4.7) Albumin 2.6g/dL (3.4-5.0) ALLI SELBY MD Aug 19, 2016 11:17
[2016-08-19] MEDS ORDERED: IV NORMAL SALINE 500ML BAG 250 ML IV ONE (13:45)
--- NOTE | 2016-08-19 14:17 | PDOC ---
PROGRESS NOTES Subjective Subjective Per nurse, the patient's BP's started to dip into the 70/40s. Pt was sitting up in her chair today in no acute distress. Pt reports feeling better today and not as weak as she was. Objective Objective Vital Signs Date Time Temp Pulse Resp B/P Pulse Ox O2 Delivery O2 Flow Rate FiO2 08/19/16 11:00 97.3 64 16 87/53 91 Room Air 97.3 08/18/16 19:21 2.0 Intake and Output 08/19/16 06:59 Intake Total 1300 ml Output Total 450 ml Balance 850 ml Intake Oral 650 ml IV Total 650 ml Output Urine Total 450 ml Physical Exam Abdomen: Normal bowel sounds, Soft, No tenderness Heart: Regular rate, Normal S1, Normal S2, Other (Systolic Murmur) Extremities: No clubbing, No cyanosis, No edema General: Alert, Oriented X3, Cooperative, No acute distress HEENT: Atraumatic, PERRLA Lungs: Clear to auscultation Neck: Other (RIJ placed with dressing over it. Dressing was c/d/i) Assessment Assessment Problems Medical Problems: (1) Acute on chronic renal failure Status: Acute Assessment - Acute on chronic systolic CHF ICM EF 10% AICD - ARF with CKD II, ATN, SONA - HTN - Severe weakness and debility - moderate pulmonary HTN - mild to mod MR - HLD - DM II Plan Plan of Care - Since patient had multiple low systolic blood pressures in the 70's, will start to wean the dobutamine drip. Will lower the dose to 2.5 mcg. - Will follow up on setting up home health for the dobutamine infusions twice a weak - Neuro consulted for patient's new weakness. Recommendations are appreciated. - Possible discharge this weekend from a cardiology standpoint if the patient is able to stand and ambulate alone to take care of herself. Comment Review of Relevant I have reviewed the following items marquise (where applicable) has been applied. Labs Laboratory Tests Test 08/17/16 17:13 08/18/16 03:00 08/18/16 09:13 08/18/16 11:58 Glucose (Fingerstick) 123mg/dL (70-99) 93mg/dL (70-99) 101mg/dL (70-99) White Blood Count 6.0x10^3/uL (4.0-11.0) Red Blood Count 3.94x10^6/uL (4.30-5.70) Hemoglobin 9.8g/dL (13.0-17.5) Hematocrit 31.4% (39.0-53.0) Mean Corpuscular Volume 80fL (79-100) Mean Corpuscular Hemoglobin 25pg (25-35) Mean Corpuscular Hemoglobin Concent 31g/dL (31-37) Red Cell Distribution Width 19.4% (11.5-14.5) Platelet Count 103x10^3/uL (140-400) Neutrophils (%) (Auto) 75% (31-73) Lymphocytes (%) (Auto) 12% (24-48) Monocytes (%) (Auto) 11% (0-9) Eosinophils (%) (Auto) 1% (0-3) Basophils (%) (Auto) 0% (0-3) Neutrophils # (Auto) 4.5x10^3uL (1.8-7.7) Lymphocytes # (Auto) 0.7x10^3/uL (1.0-4.8) Monocytes # (Auto) 0.7x10^3/uL (0.0-1.1) Eosinophils # (Auto) 0.1x10^3/uL (0.0-0.7) Basophils # (Auto) 0.0x10^3/uL (0.0-0.2) Prothrombin Time 21.0SEC (11.7-14.0) Prothromb Time International Ratio 1.9 (0.8-1.1) Sodium Level 138mmol/L (136-145) Potassium Level 3.7mmol/L (3.5-5.1) Chloride Level 105mmol/L (98-107) Carbon Dioxide Level 20mmol/L (21-32) Anion Gap 13 (6-14) Blood Urea Nitrogen 110mg/dL (8-26) Creatinine 2.8mg/dL (0.7-1.3) Estimated GFR (Cockcroft-Gault) 27.0 Glucose Level 102mg/dL (70-99) Calcium Level 8.5mg/dL (8.5-10.1) Phosphorus Level 5.1mg/dL (2.6-4.7) Albumin 2.9g/dL (3.4-5.0) Test 08/18/16 16:31 08/18/16 21:02 08/19/16 05:00 08/19/16 12:29 Glucose (Fingerstick) 126mg/dL (70-99) 141mg/dL (70-99) 134mg/dL (70-99) White Blood Count 6.7x10^3/uL (4.0-11.0) Red Blood Count 3.77x10^6/uL (4.30-5.70) Hemoglobin 9.4g/dL (13.0-17.5) Hematocrit 30.0% (39.0-53.0) Mean Corpuscular Volume 80fL (79-100) Mean Corpuscular Hemoglobin 25pg (25-35) Mean Corpuscular Hemoglobin Concent 31g/dL (31-37) Red Cell Distribution Width 19.5% (11.5-14.5) Platelet Count 111x10^3/uL (140-400) Neutrophils (%) (Auto) 80% (31-73) Lymphocytes (%) (Auto) 9% (24-48) Monocytes (%) (Auto) 10% (0-9) Eosinophils (%) (Auto) 2% (0-3) Basophils (%) (Auto) 0% (0-3) Neutrophils # (Auto) 5.4x10^3uL (1.8-7.7) Lymphocytes # (Auto) 0.6x10^3/uL (1.0-4.8) Monocytes # (Auto) 0.6x10^3/uL (0.0-1.1) Eosinophils # (Auto) 0.1x10^3/uL (0.0-0.7) Basophils # (Auto) 0.0x10^3/uL (0.0-0.2) Prothrombin Time 25.9SEC (11.7-14.0) Prothromb Time International Ratio 2.5 (0.8-1.1) Sodium Level 137mmol/L (136-145) Potassium Level 3.9mmol/L (3.5-5.1) Chloride Level 103mmol/L (98-107) Carbon Dioxide Level 20mmol/L (21-32) Anion Gap 14 (6-14) Blood Urea Nitrogen 105mg/dL (8-26) Creatinine 2.8mg/dL (0.7-1.3) Estimated GFR (Cockcroft-Gault) 27.0 Glucose Level 103mg/dL (70-99) Calcium Level 8.3mg/dL (8.5-10.1) Phosphorus Level 5.0mg/dL (2.6-4.7) Albumin 2.6g/dL (3.4-5.0) Laboratory Tests Test 08/18/16 16:31 08/18/16 21:02 08/19/16 05:00 08/19/16 12:29 Glucose (Fingerstick) 126mg/dL (70-99) 141mg/dL (70-99) 134mg/dL (70-99) White Blood Count 6.7x10^3/uL (4.0-11.0) Red Blood Count 3.77x10^6/uL (4.30-5.70) Hemoglobin 9.4g/dL (13.0-17.5) Hematocrit 30.0% (39.0-53.0) Mean Corpuscular Volume 80fL (79-100) Mean Corpuscular Hemoglobin 25pg (25-35) Mean Corpuscular Hemoglobin Concent 31g/dL (31-37) Red Cell Distribution Width 19.5% (11.5-14.5) Platelet Count 111x10^3/uL (140-400) Neutrophils (%) (Auto) 80% (31-73) Lymphocytes (%) (Auto) 9% (24-48) Monocytes (%) (Auto) 10% (0-9) Eosinophils (%) (Auto) 2% (0-3) Basophils (%) (Auto) 0% (0-3) Neutrophils # (Auto) 5.4x10^3uL (1.8-7.7) Lymphocytes # (Auto) 0.6x10^3/uL (1.0-4.8) Monocytes # (Auto) 0.6x10^3/uL (0.0-1.1) Eosinophils # (Auto) 0.1x10^3/uL (0.0-0.7) Basophils # (Auto) 0.0x10^3/uL (0.0-0.2) Prothrombin Time 25.9SEC (11.7-14.0) Prothromb Time International Ratio 2.5 (0.8-1.1) Sodium Level 137mmol/L (136-145) Potassium Level 3.9mmol/L (3.5-5.1) Chloride Level 103mmol/L (98-107) Carbon Dioxide Level 20mmol/L (21-32) Anion Gap 14 (6-14) Blood Urea Nitrogen 105mg/dL (8-26) Creatinine 2.8mg/dL (0.7-1.3) Estimated GFR (Cockcroft-Gault) 27.0 Glucose Level 103mg/dL (70-99) Calcium Level 8.3mg/dL (8.5-10.1) Phosphorus Level 5.0mg/dL (2.6-4.7) Albumin 2.6g/dL (3.4-5.0) Microbiology 08/15/16 Urine Culture - Final, Complete 08/15/16 Urine Culture Result 1 (JV) - Final, Complete 08/15/16 Urine Culture Result 2 (JV) - Final, Complete 08/15/16 Antimicrobic Susceptibility - Final, Complete Medications Current Medications Insulin Aspart (Novolog) 0-5 UNITS TIDWMEALS SQ ; Start 08/14/16 at 17:30 Dextrose 12.5 gm 12.5 gm PRN Q15MIN PRN IV SEE COMMENTS; Start 08/14/16 at 16: 45 Sodium Chloride (Iv Sodium Chloride 0.9% 1000ml Bag) 1,000 ml @ 100 mls/hr Q10H IV Last administered on 08/14/16 18:53; Start 08/14/16 at 17:30; Stop 08/15/16 at 03:29; Status DC Amiodarone HCl (Cordarone) 200 mg DAILY PO Last administered on 08/19/16 08:15 ; Start 08/15/16 at 09:00 Aspirin (Ecotrin) 81 mg DAILY PO Last administered on 08/19/16 08:15; Start 08/15/16 at 09:00 Atorvastatin Calcium (Lipitor) 40 mg QHS PO Last administered on 08/18/16 21:35 ; Start 08/14/16 at 21:00 Carvedilol (Coreg) 6.25 mg BIDWMEALS PO Last administered on 08/19/16 08:15; Start 08/14/16 at 17:30 Colestipol HCl (Colestid) 1 gm TID PO Last administered on 08/17/16 20:55; Start 08/14/16 at 21:00; Stop 08/18/16 at 10:08; Status DC Metoclopramide HCl (Reglan) 5 mg PRN BID PRN PO NAUSEA; Start 08/14/16 at 16:45 ; Stop 08/16/16 at 10:25; Status DC Sacubitril/ Valsartan (Entresto 24 Mg-26 Mg) 1 tab BID PO Last administered on 08/17/16 09:14; Start 08/14/16 at 21:00; Stop 08/17/16 at 10:16; Status DC Warfarin Sodium (Coumadin) 2.5 mg DAILY16 PO Last administered on 08/14/16 18: 50; Start 08/14/16 at 18:00; Stop 08/15/16 at 14:13; Status DC Warfarin Sodium (Coumadin Per Physician) 1 each PRN DAILY PRN MC SEE COMMENTS; Start 08/14/16 at 17:15; Stop 08/15/16 at 09:54; Status DC Sodium Polystyrene Sulfonate (Kayexalate) 60 gm 1X ONCE PO Last administered on 08/14/16 18:51; Start 08/14/16 at 18:30; Stop 08/14/16 at 18:31; Status DC Warfarin Sodium (Coumadin Per Pharmacy) 1 each PRN DAILY PRN MC SEE COMMENTS Last administered on 08/19/16 13:01; Start 08/15/16 at 10:00 Pantoprazole Sodium 40 mg 40 mg DAILYAC PO Last administered on 08/19/16 08:15 ; Start 08/15/16 at 11:30 Dobutamine HCl/ Dextrose 250 ml @ 0 mls/hr CONT PRN IV ; Start 08/15/16 at 14:00 ; Stop 08/15/16 at 14:53; Status DC Albumin Human (Albuminar) 100 ml @ 100 mls/hr 1X ONCE IV Last administered on 08/15/16 15:25; Start 08/15/16 at 14:00; Stop 08/15/16 at 14:59; Status DC Furosemide 40 mg 40 mg 1X ONCE IVP Last administered on 08/15/16 16:22; Start 08/15/16 at 15:00; Stop 08/15/16 at 15:01; Status DC Albumin Human (Albuminar) 100 ml @ 100 mls/hr 1X ONCE IV Last administered on 08/16/16 08:41; Start 08/16/16 at 09:00; Stop 08/16/16 at 09:59; Status DC Furosemide (Lasix) 40 mg 1X ONCE IVP Last administered on 08/16/16 09:45; Start 08/16/16 at 10:00; Stop 08/16/16 at 10:01; Status DC Warfarin Sodium 4 mg 4 mg 1X WARF ONCE PO Last administered on 08/15/16 16:33 ; Start 08/15/16 at 16:00; Stop 08/15/16 at 16:01; Status DC Dobutamine HCl/ Dextrose 250 ml @ 0 mls/hr CONT PRN PRN IV SEE I/O RECORD Last administered on 08/19/16 08:29; Start 08/15/16 at 14:53 Sodium Bicarbonate 50 meq 50 meq Q2HR IV Last administered on 08/15/16 18:20; Start 08/15/16 at 16:00; Stop 08/15/16 at 18:30; Status DC Magnesium Sulfate/ Dextrose (Magnesium Sulfate PREMIX 2GM) 50 ml @ 25 mls/hr PRN DAILY PRN IV for Mag < 1.7 on am labs; Start 08/15/16 at 15:30 Warfarin Sodium (Coumadin) 4 mg 1X WARF ONCE PO Last administered on 08/16/16 17:28; Start 08/16/16 at 16:00; Stop 08/16/16 at 16:01; Status DC Ondansetron HCl 4 mg 4 mg PRN Q6HRS PRN IV nausea Last administered on 08:25; Start 08/16/16 at 20:30 Ceftriaxone Sodium 1 gm/ Sodium Chloride 50 ml @ 100 mls/hr Q24H IV Last administered on 08/18/16 09:47; Start 08/17/16 at 10:00; Stop 08/19/16 at 12:56; Status DC Sodium Chloride (Iv Sodium Chloride 0.9% 1000ml Bag) 1,000 ml @ 75 mls/hr [id number] IV Last administered on 08/19/16 01:06; Start 08/17/16 at 10:15 Warfarin Sodium (Coumadin) 5 mg 1X WARF ONCE PO ; Start 08/17/16 at 16:00; Stop 08/17/16 at 16:01; Status DC Heparin Sodium/ Sodium Chloride 1,000 unit 1X ONCE IART Last administered on 11:45; Start 08/18/16 at 11:30; Stop 08/18/16 at 11:31; Status DC Midazolam HCl (Versed) 2 mg 1X ONCE IV Last administered on 08/18/16 11:46; Start 08/18/16 at 11:30; Stop 08/18/16 at 11:31; Status DC Fentanyl Citrate (Fentanyl 2ml Vial) 100 mcg 1X ONCE IV Last administered on 11:47; Start 08/18/16 at 11:30; Stop 08/18/16 at 11:31; Status DC Lidocaine/ Epinephrine 15 ml 15 ml 1X ONCE IJ Last administered on 08/18/16 11 :44; Start 08/18/16 at 11:30; Stop 08/18/16 at 11:31; Status DC Vancomycin HCl 250 ml @ 250 mls/hr 1X ONCE IRR Last administered on 08/18/16 11:45; Start 08/18/16 at 11:30; Stop 08/18/16 at 12:29; Status DC Heparin Sodium (Porcine) (Hep Lock Adult) 500 unit 1X ONCE IV Last administered on 08/18/16 11:46; Start 08/18/16 at 11:30; Stop 08/18/16 at 11:31; Status DC Heparin Sodium (Porcine) (Hep Lock Adult) 500 unit STK-MED ONCE IV ; Start at 09:29; Stop 08/18/16 at 11:42; Status DC Lidocaine/ Epinephrine 20 ml 20 ml STK-MED ONCE .ROUTE ; Start 08/18/16 at 09:29 ; Stop 08/18/16 at 11:42; Status DC Heparin Sodium/ Sodium Chloride 500 ml @ As Directed STK-MED ONCE .ROUTE ; Start 08/18/16 at 09:29; Stop 08/18/16 at 11:42; Status DC Vancomycin HCl 250 ml @ As Directed STK-MED ONCE .ROUTE ; Start 08/18/16 at 09: 29; Stop 08/18/16 at 11:42; Status DC Fentanyl Citrate (Fentanyl 2ml Vial) 100 mcg STK-MED ONCE .ROUTE ; Start at 10:29; Stop 08/18/16 at 11:43; Status DC Midazolam HCl 2 mg 2 mg STK-MED ONCE .ROUTE ; Start 08/18/16 at 10:30; Stop at 11:43; Status DC Iron Sucrose/ Sodium Chloride (Venofer/Iv Sodium Chloride 0.9% 100ml) 110 ml @ 55 mls/hr 3X/WEEK IV ; Start 08/19/16 at 09:00; Stop 08/28/16 at 10:59 Warfarin Sodium (Coumadin) 5 mg 1X WARF ONCE PO Last administered on 08/18/16t 17:56; Start 08/18/16 at 16:00; Stop 08/18/16 at 16:01; Status DC Warfarin Sodium (Coumadin) 3 mg 1X WARF ONCE PO ; Start 08/19/16 at 16:00; Stop 08/19/16 at 16:01; Status Cancel Cefpodoxime Proxetil (Vantin) 100 mg BID PO ; Start 08/19/16 at 21:00 Warfarin Sodium (Coumadin) 2.5 mg 1X WARF ONCE PO ; Start 08/19/16 at 16:00; Stop 08/19/16 at 16:01 Senna/Docusate Sodium 1 tab 1 tab PRN BID PRN PO CONSTIPATION; Start 08/19/16 at 13:30 Sodium Chloride 250 ml @ 0 mls/hr 1X ONCE IV ; Start 08/19/16 at 13:45; Stop 08/19/16 at 13:53; Status DC Sodium Chloride (Iv Sodium Chloride 0.9% 500ml Bag) 500 ml @ 0 mls/hr 1X ONCE IV ; Start 08/19/16 at 16:00; Stop 08/19/16 at 16:01 Active Scripts Active Entresto 24 mg-26 mg Tablet (Sacubitril/Valsartan) 1 Each Tablet 1 Tab PO BID Coumadin (Warfarin Sodium) 2.5 Mg Tablet 2.5 Mg PO DAILY16 Reported Reglan (Metoclopramide Hcl) 10 Mg Tablet 5 Mg PO PRN BID PRN Atorvastatin Calcium 40 Mg Tablet 1 Tab PO DAILY Colestid (Colestipol Hcl) 1 Gm Tablet 1 Gm PO TID Pacerone (Amiodarone Hcl) 200 Mg Tablet 200 Mg PO DAILY Lasix (Furosemide) 80 Mg Tablet 1 Tab PO BID Gabapentin 100 Mg Capsule 1 Cap PO TID Aspir 81 (Aspirin) 81 Mg Tablet.dr 1 Tab PO DAILY Coreg (Carvedilol) 6.25 Mg Tablet 1 Tab PO BID K-Tab ER (Potassium Chloride) 20 Meq Tablet.er 20 Meq PO BID Vitals/I & O Vital Sign - Last 24 Hours 08/18/16 08/18/16 08/18/16 08/18/16 15:00 15:06 16:00 17:00 Temp 97.7 97.7 Pulse 66 69 74 64 Resp 20 B/P 105/58 104/59 99/50 93/53 Pulse Ox 90 O2 Delivery Room Air 08/18/16 08/18/16 08/18/16 08/18/16 17:56 19:20 19:21 23:03 Temp 97.5 97.9 97.5 97.9 Pulse 69 64 61 Resp 16 18 B/P 104/59 100/60 97/50 Pulse Ox 96 94 O2 Delivery Room Air Nasal Cannula Room Air O2 Flow Rate 2.0 08/19/16 08/19/16 08/19/16 08/19/16 03:26 06:58 08:00 08:15 Temp 97.6 98.1 97.6 98.1 Pulse 65 67 67 Resp 18 18 B/P 106/56 100/59 100/59 Pulse Ox 94 92 O2 Delivery Room Air Room Air Nasal Cannula 08/19/16 08/19/16 08:15 11:00 Temp 97.3 97.3 Pulse 67 64 Resp 16 B/P 100/59 87/53 Pulse Ox 91 O2 Delivery Room Air Intake and Output 08/18/16 08/18/16 08/19/16 14:59 22:59 06:59 Intake Total 650 ml 650 ml Output Total 350 ml 100 ml Balance 300 ml 550 ml HEATHER CHERRY MD Aug 19, 2016 14:17
[2016-08-19 15:00] VITALS: BP 111/64
--- NOTE | 2016-08-19 15:42 | RAD ---
Pelvis with right hip, 3 views, 08/19/2016: History: Pain and stiffness in both hips No fracture or dislocation is identified. There is severe narrowing of the right hip joint with marginal spurring. There is mild spurring at the left hip joint. Extensive arterial calcifications are present bilaterally. There are coarse pelvic calcifications, compatible with uterine fibroids. Degenerative changes are noted in the lower lumbar spine. IMPRESSION: 1. Moderately severe right osteoarthritis. 2. Mild spurring at the left hip joint. 3. Calcified uterine fibroids.
[2016-08-19] MEDS ORDERED: IV NORMAL SALINE 500ML BAG 500 ML IV ONE (16:00)
[2016-08-19] MEDS ORDERED: WARFARIN 2.5 MG TABLET. PO ONE (16:00)
[2016-08-19] MEDS ORDERED: WARFARIN 3 MG TABLET. PO ONE (16:00)
--- NOTE | 2016-08-19 18:22 | PDOC ---
PROGRESS NOTES Subjective Subjective She c/o continued hip pain and also pain in her heels. 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 Assessment Assessment Problems Medical Problems: (1) Acute on chronic renal failure Status: Acute Plan Plan of Care To get her PRAFO boots to keep pressure off heels and to ask wound care nurse to se her and to consider hip joint injection under flouroscopy when medically stable to help ease her hip pain. Comment Review of Relevant I have reviewed the following items marquise (where applicable) has been applied. Labs Laboratory Tests Test 08/18/16 03:00 08/18/16 09:13 08/18/16 11:58 08/18/16 16:31 White Blood Count 6.0x10^3/uL (4.0-11.0) Red Blood Count 3.94x10^6/uL (4.30-5.70) Hemoglobin 9.8g/dL (13.0-17.5) Hematocrit 31.4% (39.0-53.0) Mean Corpuscular Volume 80fL (79-100) Mean Corpuscular Hemoglobin 25pg (25-35) Mean Corpuscular Hemoglobin Concent 31g/dL (31-37) Red Cell Distribution Width 19.4% (11.5-14.5) Platelet Count 103x10^3/uL (140-400) Neutrophils (%) (Auto) 75% (31-73) Lymphocytes (%) (Auto) 12% (24-48) Monocytes (%) (Auto) 11% (0-9) Eosinophils (%) (Auto) 1% (0-3) Basophils (%) (Auto) 0% (0-3) Neutrophils # (Auto) 4.5x10^3uL (1.8-7.7) Lymphocytes # (Auto) 0.7x10^3/uL (1.0-4.8) Monocytes # (Auto) 0.7x10^3/uL (0.0-1.1) Eosinophils # (Auto) 0.1x10^3/uL (0.0-0.7) Basophils # (Auto) 0.0x10^3/uL (0.0-0.2) Prothrombin Time 21.0SEC (11.7-14.0) Prothromb Time International Ratio 1.9 (0.8-1.1) Sodium Level 138mmol/L (136-145) Potassium Level 3.7mmol/L (3.5-5.1) Chloride Level 105mmol/L (98-107) Carbon Dioxide Level 20mmol/L (21-32) Anion Gap 13 (6-14) Blood Urea Nitrogen 110mg/dL (8-26) Creatinine 2.8mg/dL (0.7-1.3) Estimated GFR (Cockcroft-Gault) 27.0 Glucose Level 102mg/dL (70-99) Calcium Level 8.5mg/dL (8.5-10.1) Phosphorus Level 5.1mg/dL (2.6-4.7) Albumin 2.9g/dL (3.4-5.0) Glucose (Fingerstick) 93mg/dL (70-99) 101mg/dL (70-99) 126mg/dL (70-99) Test 08/18/16 21:02 08/19/16 05:00 08/19/16 12:29 08/19/16 17:49 Glucose (Fingerstick) 141mg/dL (70-99) 134mg/dL (70-99) 104mg/dL (70-99) White Blood Count 6.7x10^3/uL (4.0-11.0) Red Blood Count 3.77x10^6/uL (4.30-5.70) Hemoglobin 9.4g/dL (13.0-17.5) Hematocrit 30.0% (39.0-53.0) Mean Corpuscular Volume 80fL (79-100) Mean Corpuscular Hemoglobin 25pg (25-35) Mean Corpuscular Hemoglobin Concent 31g/dL (31-37) Red Cell Distribution Width 19.5% (11.5-14.5) Platelet Count 111x10^3/uL (140-400) Neutrophils (%) (Auto) 80% (31-73) Lymphocytes (%) (Auto) 9% (24-48) Monocytes (%) (Auto) 10% (0-9) Eosinophils (%) (Auto) 2% (0-3) Basophils (%) (Auto) 0% (0-3) Neutrophils # (Auto) 5.4x10^3uL (1.8-7.7) Lymphocytes # (Auto) 0.6x10^3/uL (1.0-4.8) Monocytes # (Auto) 0.6x10^3/uL (0.0-1.1) Eosinophils # (Auto) 0.1x10^3/uL (0.0-0.7) Basophils # (Auto) 0.0x10^3/uL (0.0-0.2) Prothrombin Time 25.9SEC (11.7-14.0) Prothromb Time International Ratio 2.5 (0.8-1.1) Sodium Level 137mmol/L (136-145) Potassium Level 3.9mmol/L (3.5-5.1) Chloride Level 103mmol/L (98-107) Carbon Dioxide Level 20mmol/L (21-32) Anion Gap 14 (6-14) Blood Urea Nitrogen 105mg/dL (8-26) Creatinine 2.8mg/dL (0.7-1.3) Estimated GFR (Cockcroft-Gault) 27.0 Glucose Level 103mg/dL (70-99) Calcium Level 8.3mg/dL (8.5-10.1) Phosphorus Level 5.0mg/dL (2.6-4.7) Albumin 2.6g/dL (3.4-5.0) Laboratory Tests Test 08/18/16 21:02 08/19/16 05:00 08/19/16 12:29 08/19/16 17:49 Glucose (Fingerstick) 141mg/dL (70-99) 134mg/dL (70-99) 104mg/dL (70-99) White Blood Count 6.7x10^3/uL (4.0-11.0) Red Blood Count 3.77x10^6/uL (4.30-5.70) Hemoglobin 9.4g/dL (13.0-17.5) Hematocrit 30.0% (39.0-53.0) Mean Corpuscular Volume 80fL (79-100) Mean Corpuscular Hemoglobin 25pg (25-35) Mean Corpuscular Hemoglobin Concent 31g/dL (31-37) Red Cell Distribution Width 19.5% (11.5-14.5) Platelet Count 111x10^3/uL (140-400) Neutrophils (%) (Auto) 80% (31-73) Lymphocytes (%) (Auto) 9% (24-48) Monocytes (%) (Auto) 10% (0-9) Eosinophils (%) (Auto) 2% (0-3) Basophils (%) (Auto) 0% (0-3) Neutrophils # (Auto) 5.4x10^3uL (1.8-7.7) Lymphocytes # (Auto) 0.6x10^3/uL (1.0-4.8) Monocytes # (Auto) 0.6x10^3/uL (0.0-1.1) Eosinophils # (Auto) 0.1x10^3/uL (0.0-0.7) Basophils # (Auto) 0.0x10^3/uL (0.0-0.2) Prothrombin Time 25.9SEC (11.7-14.0) Prothromb Time International Ratio 2.5 (0.8-1.1) Sodium Level 137mmol/L (136-145) Potassium Level 3.9mmol/L (3.5-5.1) Chloride Level 103mmol/L (98-107) Carbon Dioxide Level 20mmol/L (21-32) Anion Gap 14 (6-14) Blood Urea Nitrogen 105mg/dL (8-26) Creatinine 2.8mg/dL (0.7-1.3) Estimated GFR (Cockcroft-Gault) 27.0 Glucose Level 103mg/dL (70-99) Calcium Level 8.3mg/dL (8.5-10.1) Phosphorus Level 5.0mg/dL (2.6-4.7) Albumin 2.6g/dL (3.4-5.0) Microbiology 08/15/16 Urine Culture - Final, Complete 08/15/16 Urine Culture Result 1 (JV) - Final, Complete 08/15/16 Urine Culture Result 2 (JV) - Final, Complete 08/15/16 Antimicrobic Susceptibility - Final, Complete Medications Current Medications Insulin Aspart (Novolog) 0-5 UNITS TIDWMEALS SQ ; Start 08/14/16 at 17:30 Dextrose 12.5 gm 12.5 gm PRN Q15MIN PRN IV SEE COMMENTS; Start 08/14/16 at 16: 45 Sodium Chloride (Iv Sodium Chloride 0.9% 1000ml Bag) 1,000 ml @ 100 mls/hr Q10H IV Last administered on 08/14/16 18:53; Start 08/14/16 at 17:30; Stop 08/15/16 at 03:29; Status DC Amiodarone HCl (Cordarone) 200 mg DAILY PO Last administered on 08/19/16 08:15 ; Start 08/15/16 at 09:00 Aspirin (Ecotrin) 81 mg DAILY PO Last administered on 08/19/16 08:15; Start 08/15/16 at 09:00 Atorvastatin Calcium (Lipitor) 40 mg QHS PO Last administered on 08/18/16 21:35 ; Start 08/14/16 at 21:00 Carvedilol (Coreg) 6.25 mg BIDWMEALS PO Last administered on 08/19/16 17:00; Start 08/14/16 at 17:30 Colestipol HCl (Colestid) 1 gm TID PO Last administered on 08/17/16 20:55; Start 08/14/16 at 21:00; Stop 08/18/16 at 10:08; Status DC Metoclopramide HCl (Reglan) 5 mg PRN BID PRN PO NAUSEA; Start 08/14/16 at 16:45 ; Stop 08/16/16 at 10:25; Status DC Sacubitril/ Valsartan (Entresto 24 Mg-26 Mg) 1 tab BID PO Last administered on 08/17/16 09:14; Start 08/14/16 at 21:00; Stop 08/17/16 at 10:16; Status DC Warfarin Sodium (Coumadin) 2.5 mg DAILY16 PO Last administered on 08/14/16 18: 50; Start 08/14/16 at 18:00; Stop 08/15/16 at 14:13; Status DC Warfarin Sodium (Coumadin Per Physician) 1 each PRN DAILY PRN MC SEE COMMENTS; Start 08/14/16 at 17:15; Stop 08/15/16 at 09:54; Status DC Sodium Polystyrene Sulfonate (Kayexalate) 60 gm 1X ONCE PO Last administered on 08/14/16 18:51; Start 08/14/16 at 18:30; Stop 08/14/16 at 18:31; Status DC Warfarin Sodium (Coumadin Per Pharmacy) 1 each PRN DAILY PRN MC SEE COMMENTS Last administered on 08/19/16 13:01; Start 08/15/16 at 10:00 Pantoprazole Sodium 40 mg 40 mg DAILYAC PO Last administered on 08/19/16 08:15 ; Start 08/15/16 at 11:30 Dobutamine HCl/ Dextrose 250 ml @ 0 mls/hr CONT PRN IV ; Start 08/15/16 at 14:00 ; Stop 08/15/16 at 14:53; Status DC Albumin Human (Albuminar) 100 ml @ 100 mls/hr 1X ONCE IV Last administered on 08/15/16 15:25; Start 08/15/16 at 14:00; Stop 08/15/16 at 14:59; Status DC Furosemide 40 mg 40 mg 1X ONCE IVP Last administered on 08/15/16 16:22; Start 08/15/16 at 15:00; Stop 08/15/16 at 15:01; Status DC Albumin Human (Albuminar) 100 ml @ 100 mls/hr 1X ONCE IV Last administered on 08/16/16 08:41; Start 08/16/16 at 09:00; Stop 08/16/16 at 09:59; Status DC Furosemide (Lasix) 40 mg 1X ONCE IVP Last administered on 08/16/16 09:45; Start 08/16/16 at 10:00; Stop 08/16/16 at 10:01; Status DC Warfarin Sodium 4 mg 4 mg 1X WARF ONCE PO Last administered on 08/15/16 16:33 ; Start 08/15/16 at 16:00; Stop 08/15/16 at 16:01; Status DC Dobutamine HCl/ Dextrose 250 ml @ 0 mls/hr CONT PRN PRN IV SEE I/O RECORD Last administered on 08/19/16 08:29; Start 08/15/16 at 14:53 Sodium Bicarbonate 50 meq 50 meq Q2HR IV Last administered on 08/15/16 18:20; Start 08/15/16 at 16:00; Stop 08/15/16 at 18:30; Status DC Magnesium Sulfate/ Dextrose (Magnesium Sulfate PREMIX 2GM) 50 ml @ 25 mls/hr PRN DAILY PRN IV for Mag < 1.7 on am labs; Start 08/15/16 at 15:30 Warfarin Sodium (Coumadin) 4 mg 1X WARF ONCE PO Last administered on 08/16/16 17:28; Start 08/16/16 at 16:00; Stop 08/16/16 at 16:01; Status DC Ondansetron HCl 4 mg 4 mg PRN Q6HRS PRN IV nausea Last administered on 08:25; Start 08/16/16 at 20:30 Ceftriaxone Sodium 1 gm/ Sodium Chloride 50 ml @ 100 mls/hr Q24H IV Last administered on 08/19/16 10:00; Start 08/17/16 at 10:00; Stop 08/19/16 at 12:56; Status DC Sodium Chloride (Iv Sodium Chloride 0.9% 1000ml Bag) 1,000 ml @ 75 mls/hr [id number] IV Last administered on 08/19/16 16:58; Start 08/17/16 at 10:15 Warfarin Sodium (Coumadin) 5 mg 1X WARF ONCE PO ; Start 08/17/16 at 16:00; Stop 08/17/16 at 16:01; Status DC Heparin Sodium/ Sodium Chloride 1,000 unit 1X ONCE IART Last administered on 11:45; Start 08/18/16 at 11:30; Stop 08/18/16 at 11:31; Status DC Midazolam HCl (Versed) 2 mg 1X ONCE IV Last administered on 08/18/16 11:46; Start 08/18/16 at 11:30; Stop 08/18/16 at 11:31; Status DC Fentanyl Citrate (Fentanyl 2ml Vial) 100 mcg 1X ONCE IV Last administered on 11:47; Start 08/18/16 at 11:30; Stop 08/18/16 at 11:31; Status DC Lidocaine/ Epinephrine 15 ml 15 ml 1X ONCE IJ Last administered on 08/18/16 11 :44; Start 08/18/16 at 11:30; Stop 08/18/16 at 11:31; Status DC Vancomycin HCl 250 ml @ 250 mls/hr 1X ONCE IRR Last administered on 08/18/16 11:45; Start 08/18/16 at 11:30; Stop 08/18/16 at 12:29; Status DC Heparin Sodium (Porcine) (Hep Lock Adult) 500 unit 1X ONCE IV Last administered on 08/18/16 11:46; Start 08/18/16 at 11:30; Stop 08/18/16 at 11:31; Status DC Heparin Sodium (Porcine) (Hep Lock Adult) 500 unit STK-MED ONCE IV ; Start at 09:29; Stop 08/18/16 at 11:42; Status DC Lidocaine/ Epinephrine 20 ml 20 ml STK-MED ONCE .ROUTE ; Start 08/18/16 at 09:29 ; Stop 08/18/16 at 11:42; Status DC Heparin Sodium/ Sodium Chloride 500 ml @ As Directed STK-MED ONCE .ROUTE ; Start 08/18/16 at 09:29; Stop 08/18/16 at 11:42; Status DC Vancomycin HCl 250 ml @ As Directed STK-MED ONCE .ROUTE ; Start 08/18/16 at 09: 29; Stop 08/18/16 at 11:42; Status DC Fentanyl Citrate (Fentanyl 2ml Vial) 100 mcg STK-MED ONCE .ROUTE ; Start at 10:29; Stop 08/18/16 at 11:43; Status DC Midazolam HCl 2 mg 2 mg STK-MED ONCE .ROUTE ; Start 08/18/16 at 10:30; Stop at 11:43; Status DC Iron Sucrose/ Sodium Chloride (Venofer/Iv Sodium Chloride 0.9% 100ml) 110 ml @ 55 mls/hr 3X/WEEK IV Last administered on 08/19/16 14:35; Start 08/19/16 at 09: 00; Stop 08/28/16 at 10:59 Warfarin Sodium (Coumadin) 5 mg 1X WARF ONCE PO Last administered on 08/18/16 17:56; Start 08/18/16 at 16:00; Stop 08/18/16 at 16:01; Status DC Warfarin Sodium (Coumadin) 3 mg 1X WARF ONCE PO ; Start 08/19/16 at 16:00; Stop 08/19/16 at 16:01; Status Cancel Cefpodoxime Proxetil (Vantin) 100 mg BID PO ; Start 08/19/16 at 21:00 Warfarin Sodium (Coumadin) 2.5 mg 1X WARF ONCE PO Last administered on 16:59; Start 08/19/16 at 16:00; Stop 08/19/16 at 16:01; Status DC Senna/Docusate Sodium 1 tab 1 tab PRN BID PRN PO CONSTIPATION; Start 08/19/16 at 13:30 Sodium Chloride 250 ml @ 0 mls/hr 1X ONCE IV Last administered on 08/19/16 14: 33; Start 08/19/16 at 13:45; Stop 08/19/16 at 13:53; Status DC Sodium Chloride (Iv Sodium Chloride 0.9% 500ml Bag) 500 ml @ 0 mls/hr 1X ONCE IV Last administered on 08/19/16 16:58; Start 08/19/16 at 16:00; Stop 08/19/16 at 16:01; Status DC Active Scripts Active Entresto 24 mg-26 mg Tablet (Sacubitril/Valsartan) 1 Each Tablet 1 Tab PO BID Coumadin (Warfarin Sodium) 2.5 Mg Tablet 2.5 Mg PO DAILY16 Reported Reglan (Metoclopramide Hcl) 10 Mg Tablet 5 Mg PO PRN BID PRN Atorvastatin Calcium 40 Mg Tablet 1 Tab PO DAILY Colestid (Colestipol Hcl) 1 Gm Tablet 1 Gm PO TID Pacerone (Amiodarone Hcl) 200 Mg Tablet 200 Mg PO DAILY Lasix (Furosemide) 80 Mg Tablet 1 Tab PO BID Gabapentin 100 Mg Capsule 1 Cap PO TID Aspir 81 (Aspirin) 81 Mg Tablet.dr 1 Tab PO DAILY Coreg (Carvedilol) 6.25 Mg Tablet 1 Tab PO BID K-Tab ER (Potassium Chloride) 20 Meq Tablet.er 20 Meq PO BID Vitals/I & O Vital Sign - Last 24 Hours 08/18/16 08/18/16 08/18/1617 19:20 19:21 23:03 03:26 Temp 97.5 97.9 97.6 97.5 97.9 97.6 Pulse 64 61 65 Resp 16 18 18 B/P 100/60 97/50 106/56 Pulse Ox 96 94 94 O2 Delivery Room Air Nasal Cannula Room Air Room Air O2 Flow Rate 2.0 08/19/16 08/19/16 08/19/16 08/19/16 06:58 08:00 08:15 08:15 Temp 98.1 98.1 Pulse 67 67 67 Resp 18 B/P 100/59 100/59 100/59 Pulse Ox 92 O2 Delivery Room Air Nasal Cannula 08/19/16 08/19/16 08/19/16 11:00 15:00 17:00 Temp 97.3 97.3 Pulse 64 60 61 Resp 16 14 B/P 87/53 111/64 111/64 Pulse Ox 91 91 O2 Delivery Room Air Room Air Intake and Output 08/18/16 08/18/16 08/19/16 15:00 23:00 07:00 Intake Total 650 ml 650 ml Output Total 350 ml 100 ml Balance 300 ml 550 ml MADDIE AMBROSE MD Aug 19, 2016 18:22
[2016-08-19 19:25] VITALS: BP 84/52
[2016-08-19] MEDS: SENNOSIDES/DOCUSATE 8.6/50MG TABLET. PO PRN (21:19)
[2016-08-19] MEDS: CEFPODOXIME PROXETIL 100 MG TABLET. PO SCH (21:20)
[2016-08-19] MEDS: ATORVASTATIN CALCIUM 40 MG TABLET. PO SCH (21:20)
[2016-08-19 23:20] VITALS: BP 97/55
[2016-08-20] MEDS: ONDANSETRON PF 4 MG/2 ML VIAL. IV PRN (02:33)
[2016-08-20 03:25] VITALS: BP 99/54
[2016-08-20 03:54] LABS: BASO % 1 % (0-3); EOS % 1 % (0-3); HEMATOCRIT 30.2 % (39.0-53.0); HEMOGLOBIN 9.5 g/dL (13.0-17.5); LYMPH # 0.6 x10^3/uL (1.0-4.8); LYMPH % 11 % (24-48); MEAN CORPUSCULAR HEMOGLOBIN 25 pg (25-35); MEAN CORPUSCULAR HGB CONC 32 g/dL (31-37); MEAN CORPUSCULAR VOLUME 80 fL (79-100); MONO % 10 % (0-9); NEUT % 78 % (31-73); PLATELET COUNT 100 x10^3/uL (140-400); RED BLOOD COUNT 3.78 x10^6/uL (4.30-5.70); RED CELL DISTRIBUTION WIDTH 19.7 % (11.5-14.5); WHITE BLOOD COUNT 6.1 x10^3/uL (4.0-11.0)
[2016-08-20 04:03] LABS: INR 2.9 (0.8-1.1); PROTHROMBIN TIME PATIENT 28.8 SEC (11.7-14.0)
[2016-08-20 04:23] LABS: ALBUMIN 2.7 g/dL (3.4-5.0); GFR 24.9; POTASSIUM 4.1 mmol/L (3.5-5.1)
[2016-08-20] MEDS: IV NORMAL SALINE 1000ML BAG 1,000 ML IV SCH (04:55)
[2016-08-20 07:00] VITALS: BP 97/56
[2016-08-20] MEDS: INSULIN ASPART 300 UNITS/3 ML INSULN.PEN SQ SCH ×3 (08:00→16:50)
[2016-08-20] MEDS: CEFPODOXIME PROXETIL 100 MG TABLET. PO SCH ×2 (09:24→20:36)
[2016-08-20] MEDS: ASPIRIN ENTERIC COATED 81 MG TABLET.DR. PO SCH (09:25)
[2016-08-20] MEDS: PANTOPRAZOLE 40 MG TABLET.DR. PO SCH (09:25)
--- NOTE | 2016-08-20 10:00 | PDOC ---
SUBJECTIVE ROS SONA working with PT on ambulation; needed cervantes placed back and got 650ccs CVS: no Orthopnea, no CP RESP: no SOB, no SEGOVIA GI: no Nausea, no Vomiting : no Dysuria, no Urgency OBJECTIVE Vital Signs Vital Signs Date Time Temp Pulse Resp B/P Pulse Ox O2 Delivery O2 Flow Rate FiO2 08/20/16 08:33 Nasal Cannula 08/20/16 07:00 98.0 62 19 97/56 91 98.0 I & 0 Intake and Output 08/20/16 07:00 Intake Total 1704 ml Output Total 1000 ml Balance 704 ml Intake Oral 1154 ml IV Total 550 ml Output Urine Total 1000 ml PHYSICAL EXAM Physical Exam General Appearance: Awake Alert Oriented x 3 In no Distress Eyes: VIsion Unchanged Conjunctiva Normal EN: No EN Drainage Mucous Memb. moist Neck: no JVD + JVP Supple no Thyromegaly CVS: S1 S2 + Murmur No Gallop No Rub tr Edema Resp: no Rales no Rhonchi no Acc. 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 Element of ATN cannot be ruled out. Current FLuid and E-lyte status does not necessitate emergent need for Dialysis. Will re-evaluate for Dialysis in am; creat was improving on Dobutamine gtt. watch trend of Creat now that improvement has stalled. Not sure that she will do great on HD either but she wants us to do everything to keep her going. UO is poor - cervantes was d/jeromy - Bl Scan revealed significant Urinary retention. try Laxative regimen and reval ability to void. Ct Dobutamine for now.watch off of IVF Mild Met Acidosis - watch trend. Do not want to use NaHCo3 currently due to sev Cmyopahty CKD III with Creat 1.5ish or worse (after CHF) is probably her baseline (based on previous trend) Anemia:(Fe def) IV Iron, may need Epogen Transfuse as needed. HTN: Current BP meds reviewed. Ct Entresto as long as BP can tolerate BiV Dil Cmyoaphty - End stage dilated cardiomyopathy - felt to Need Dobutamine gtt as OP as discussed with Dr Barajas Discussed Plan of Care and prognosis etc. at length with pt. Prognosis is highly guarded; Dw Dr Garcia at length COMMENT/RELEVANT DATA Meds Current Medications Medications (Trade) Dose Ordered Sig/Fernando Start Time Stop Time Status Last Admin Dose Admin Albumin Human (Albuminar) 100 ml @ 100 mls/hr 1X ONCE 08/16/16 09:00 08/16/16 09:59 DC 08/16/16 08:41 100 MLS/HR Amiodarone HCl (Cordarone) 200 mg DAILY 08/15/16 09:00 08/19/16 08:15 200 MG Aspirin (Ecotrin) 81 mg DAILY 08/15/16 09:00 08/20/16 09:25 81 MG Atorvastatin Calcium (Lipitor) 40 mg QHS 08/14/16 21:00 08/19/16 21:20 40 MG Carvedilol (Coreg) 6.25 mg BIDWMEALS 08/14/16 17:30 08/19/16 17:00 6.25 MG Cefpodoxime Proxetil (Vantin) 100 mg BID 08/19/16 21:00 08/20/16 09:24 100 MG Ceftriaxone Sodium 1 gm/ Sodium Chloride 50 ml @ 100 mls/hr Q24H 08/17/16 10:00 08/19/16 12:56 DC 08/19/16 10:00 100 MLS/HR Colestipol HCl (Colestid) 1 gm TID 08/14/16 21:00 08/18/16 10:08 DC 08/17/16 20:55 1 GM Dextrose (Dextrose 50%-Water Syringe) 12.5 gm PRN Q15MIN PRN 08/14/16 16:45 Dobutamine HCl/ Dextrose 250 ml @ 0 mls/hr CONT PRN PRN 08/15/16 14:53 08/19/16 08:29 10.7 MLS/HR Fentanyl Citrate (Fentanyl 2ml Vial) 100 mcg STK-MED ONCE 08/18/16 10:29 08/18/16 11:43 DC Furosemide (Lasix) 40 mg 1X ONCE 08/16/16 10:00 08/16/16 10:01 DC 08/16/16 09:45 40 MG Furosemide 40 mg 40 mg 1X ONCE 08/15/16 15:00 08/15/16 15:01 DC 08/15/16 16:22 40 MG Heparin Sodium (Porcine) (Hep Lock Adult) 500 unit STK-MED ONCE 08/18/16 09:29 08/18/16 11:42 DC Heparin Sodium/ Sodium Chloride 500 ml @ As Directed STK-MED ONCE 08/18/16 09:29 08/18/16 11:42 DC Insulin Aspart (Novolog) 0-5 UNITS TIDWMEALS 08/14/16 17:30 Iron Sucrose/ Sodium Chloride (Venofer/Iv Sodium Chloride 0.9% 100ml) 110 ml @ 55 mls/hr 3X/WEEK 08/19/16 09:00 08/28/16 10:59 08/19/16 14:35 55 MLS/HR Lidocaine/ Epinephrine (Xylocaine 2%-Epi 1:100,000) 15 ml 1X ONCE 08/18/16 11:30 08/18/16 11:31 DC 08/18/16 11:44 15 ML Lidocaine/ Epinephrine 20 ml 20 ml STK-MED ONCE 08/18/16 09:29 08/18/16 11:42 DC Magnesium Sulfate/ Dextrose (Magnesium Sulfate PREMIX 2GM) 50 ml @ 25 mls/hr PRN DAILY PRN 08/15/16 15:30 Metoclopramide HCl (Reglan) 5 mg PRN BID PRN 08/14/16 16:45 08/16/16 10:25 DC Midazolam HCl (Versed) 2 mg 1X ONCE 08/18/16 11:30 08/18/16 11:31 DC 08/18/16 11:46 2 MG Midazolam HCl 2 mg 2 mg STK-MED ONCE 08/18/16 10:30 08/18/16 11:43 DC Ondansetron HCl 4 mg 4 mg PRN Q6HRS PRN 08/16/16 20:30 08/20/16 02:33 4 MG Pantoprazole Sodium (Protonix) 40 mg DAILYAC 08/15/16 11:30 08/20/16 09:25 40 MG Sacubitril/ Valsartan (Entresto 24 Mg-26 Mg) 1 tab BID 08/14/16 21:00 08/17/16 10:16 DC 08/17/16 09:14 1 TAB Senna/Docusate Sodium 1 tab 1 tab PRN BID PRN 08/19/16 13:30 08/19/16 21:19 1 TAB Sodium Bicarbonate 50 meq 50 meq Q2HR 08/15/16 16:00 08/15/16 18:30 DC 08/15/16 18:20 50 MEQ Sodium Polystyrene Sulfonate (Kayexalate) 60 gm 1X ONCE 08/14/16 18:30 08/14/16 18:31 DC 08/14/16 18:51 60 GM Sodium Chloride (Iv Sodium Chloride 0.9% 500ml Bag) 500 ml @ 0 mls/hr 1X ONCE 08/19/16 16:00 08/19/16 16:01 DC 08/19/16 16:58 999 MLS/HR Sodium Chloride (Iv Sodium Chloride 0.9% 1000ml Bag) 1,000 ml @ 75 mls/hr [id number] 08/17/16 10:15 08/20/16 09:27 DC 08/19/16 16:58 75 MLS/HR Vancomycin HCl 250 ml @ As Directed STK-MED ONCE 08/18/16 09:29 08/18/16 11:42 DC Warfarin Sodium (Coumadin Per Pharmacy) 1 each PRN DAILY PRN 08/15/16 10:00 08/19/16 13:01 1 EACH Warfarin Sodium (Coumadin Per Physician) 1 each PRN DAILY PRN 08/14/16 17:15 08/15/16 09:54 DC Warfarin Sodium (Coumadin) 2.5 mg 1X WARF ONCE 08/19/16 16:00 08/19/16 16:01 DC 08/19/16 16:59 2.5 MG Warfarin Sodium 4 mg 4 mg 1X WARF ONCE 08/15/16 16:00 08/15/16 16:01 DC 08/15/16 16:33 4 MG Lab Laboratory Tests Test 08/19/16 12:29 08/19/16 17:49 08/19/16 19:42 08/20/16 03:45 Glucose (Fingerstick) 134mg/dL (70-99) 104mg/dL (70-99) 104mg/dL (70-99) White Blood Count 6.1x10^3/uL (4.0-11.0) Red Blood Count 3.78x10^6/uL (4.30-5.70) Hemoglobin 9.5g/dL (13.0-17.5) Hematocrit 30.2% (39.0-53.0) Mean Corpuscular Volume 80fL (79-100) Mean Corpuscular Hemoglobin 25pg (25-35) Mean Corpuscular Hemoglobin Concent 32g/dL (31-37) Red Cell Distribution Width 19.7% (11.5-14.5) Platelet Count 100x10^3/uL (140-400) Neutrophils (%) (Auto) 78% (31-73) Lymphocytes (%) (Auto) 11% (24-48) Monocytes (%) (Auto) 10% (0-9) Eosinophils (%) (Auto) 1% (0-3) Basophils (%) (Auto) 1% (0-3) Neutrophils # (Auto) 4.7x10^3uL (1.8-7.7) Lymphocytes # (Auto) 0.6x10^3/uL (1.0-4.8) Monocytes # (Auto) 0.6x10^3/uL (0.0-1.1) Eosinophils # (Auto) 0.0x10^3/uL (0.0-0.7) Basophils # (Auto) 0.0x10^3/uL (0.0-0.2) Prothrombin Time 28.8SEC (11.7-14.0) Prothromb Time International Ratio 2.9 (0.8-1.1) Sodium Level 135mmol/L (136-145) Potassium Level 4.1mmol/L (3.5-5.1) Chloride Level 104mmol/L (98-107) Carbon Dioxide Level 20mmol/L (21-32) Anion Gap 11 (6-14) Blood Urea Nitrogen 104mg/dL (8-26) Creatinine 3.0mg/dL (0.7-1.3) Estimated GFR (Cockcroft-Gault) 24.9 Glucose Level 105mg/dL (70-99) Calcium Level 8.0mg/dL (8.5-10.1) Phosphorus Level 5.0mg/dL (2.6-4.7) Albumin 2.7g/dL (3.4-5.0) Test 08/20/16 07:40 Glucose (Fingerstick) 92mg/dL (70-99) ALLI SELBY MD Aug 20, 2016 10:00
--- NOTE | 2016-08-20 10:04 | PDOC ---
PROGRESS NOTES Subjective Subjective had hard time urinating,cervantes placed Objective Objective Vital Signs Date Time Temp Pulse Resp B/P Pulse Ox O2 Delivery O2 Flow Rate FiO2 08/20/16 08:33 Nasal Cannula 08/20/16 07:00 98.0 62 19 97/56 91 98.0 Intake and Output 08/20/16 07:00 Intake Total 1704 ml Output Total 1000 ml Balance 704 ml Intake Oral 1154 ml IV Total 550 ml Output Urine Total 1000 ml Physical Exam Abdomen: Normal bowel sounds, Soft, No tenderness Heart: Regular rate, Normal S1, Normal S2, Other (Systolic Murmur) Extremities: No clubbing, No cyanosis, No edema General: Alert, Oriented X3, Cooperative, No acute distress HEENT: Atraumatic, PERRLA Lungs: Clear to auscultation MUSCULOSKELETAL: No joint tenderness, No deformity, No muscular tenderness noted Neck: Other (RIJ placed with dressing over it. Dressing was c/d/i) Neuro: Normal speech Psych/Mental Status: Mood NL Skin: No rashes, No significant lesion COMMENT cervantes placed Diagnosis Problem List Problems Medical Problems: (1) Acute on chronic renal failure Status: Acute Assessment Assessment urinary retention 1. ARF with CKD II ATN SONA ,cr 2.8 no change from yesterday 2. a/c systolic CHF ICM EF 10% AICD 3. HTN 4. DM II with CKD II diet control 5. hyperlipidemia 6. mild to mod MR 7. moderate pulmonary HTN 8. severe weakness and debility 9. metabolic encephalopathy POA 10. moderate chronic PCL malnutrition PLAN: cervantes placed for bladder retention. pt may need dialysis, cr 3.0 spoke with renal. Home with home health or SNU next week spoke with rehab today. Kiran for UTI,E Coli olive cath placement yesterday d/c iv fluids ,no improvement CHF on dobutamine cardiology consult appreciated d/c enestro On IV Dobutamine. dec pulses on feet ,arterial doppler Problems: Plan Plan of Care Problems Medical Problems: (1) Acute on chronic renal failure Status: Acute Comment Review of Relevant I have reviewed the following items marquise (where applicable) has been applied. Labs Laboratory Tests Test 08/19/16 12:29 08/19/16 17:49 08/19/16 19:42 08/20/16 03:45 Glucose (Fingerstick) 134mg/dL (70-99) 104mg/dL (70-99) 104mg/dL (70-99) White Blood Count 6.1x10^3/uL (4.0-11.0) Red Blood Count 3.78x10^6/uL (4.30-5.70) Hemoglobin 9.5g/dL (13.0-17.5) Hematocrit 30.2% (39.0-53.0) Mean Corpuscular Volume 80fL (79-100) Mean Corpuscular Hemoglobin 25pg (25-35) Mean Corpuscular Hemoglobin Concent 32g/dL (31-37) Red Cell Distribution Width 19.7% (11.5-14.5) Platelet Count 100x10^3/uL (140-400) Neutrophils (%) (Auto) 78% (31-73) Lymphocytes (%) (Auto) 11% (24-48) Monocytes (%) (Auto) 10% (0-9) Eosinophils (%) (Auto) 1% (0-3) Basophils (%) (Auto) 1% (0-3) Neutrophils # (Auto) 4.7x10^3uL (1.8-7.7) Lymphocytes # (Auto) 0.6x10^3/uL (1.0-4.8) Monocytes # (Auto) 0.6x10^3/uL (0.0-1.1) Eosinophils # (Auto) 0.0x10^3/uL (0.0-0.7) Basophils # (Auto) 0.0x10^3/uL (0.0-0.2) Prothrombin Time 28.8SEC (11.7-14.0) Prothromb Time International Ratio 2.9 (0.8-1.1) Sodium Level 135mmol/L (136-145) Potassium Level 4.1mmol/L (3.5-5.1) Chloride Level 104mmol/L (98-107) Carbon Dioxide Level 20mmol/L (21-32) Anion Gap 11 (6-14) Blood Urea Nitrogen 104mg/dL (8-26) Creatinine 3.0mg/dL (0.7-1.3) Estimated GFR (Cockcroft-Gault) 24.9 Glucose Level 105mg/dL (70-99) Calcium Level 8.0mg/dL (8.5-10.1) Phosphorus Level 5.0mg/dL (2.6-4.7) Albumin 2.7g/dL (3.4-5.0) Test 08/20/16 07:40 Glucose (Fingerstick) 92mg/dL (70-99) Microbiology 08/15/16 Urine Culture - Final, Complete 08/15/16 Urine Culture Result 1 (JV) - Final, Complete 08/15/16 Urine Culture Result 2 (JV) - Final, Complete 08/15/16 Antimicrobic Susceptibility - Final, Complete Medications Current Medications Cefpodoxime Proxetil (Vantin) 100 mg BID PO Last administered on 08/20/16 09:24 ; Start 08/19/16 at 21:00 Senna/Docusate Sodium 1 tab 1 tab PRN BID PRN PO CONSTIPATION Last administered on 08/19/16 21:19; Start 08/19/16 at 13:30 Sodium Chloride 250 ml @ 0 mls/hr 1X ONCE IV Last administered on 08/19/16 14: 33; Start 08/19/16 at 13:45; Stop 08/19/16 at 13:53; Status DC Sodium Chloride (Iv Sodium Chloride 0.9% 500ml Bag) 500 ml @ 0 mls/hr 1X ONCE IV Last administered on 08/19/16 16:58; Start 08/19/16 at 16:00; Stop 08/19/16 at 16:01; Status DC Warfarin Sodium (Coumadin) 2.5 mg 1X WARF ONCE PO Last administered on 16:59; Start 08/19/16 at 16:00; Stop 08/19/16 at 16:01; Status DC Warfarin Sodium (Coumadin) 3 mg 1X WARF ONCE PO ; Start 08/19/16 at 16:00; Stop 08/19/16 at 16:01; Status Cancel Vitals/I & O Vital Sign - Last 24 Hours 08/19/16 08/19/16 08/19/16 08/19/16 11:00 15:00 17:00 19:25 Temp 97.3 98.5 97.3 98.5 Pulse 64 60 61 59 Resp 16 14 20 B/P 87/53 111/64 111/64 84/52 Pulse Ox 91 91 100 O2 Delivery Room Air Room Air Room Air 08/19/16 08/19/16 08/20/16 08/20/16 20:00 23:20 03:25 07:00 Temp 98.4 97.9 98.0 98.4 97.9 98.0 Pulse 61 64 62 Resp 20 18 19 B/P 97/55 99/54 97/56 Pulse Ox 98 96 91 O2 Delivery Nasal Cannula Room Air Room Air Room Air 08/20/16 08:33 O2 Delivery Nasal Cannula Intake and Output 08/19/16 08/19/16 08/20/16 15:00 23:00 07:00 Intake Total 536 ml 868 ml 300 ml Output Total 0 ml 1000 ml Balance 536 ml 868 ml -700 ml AFSHAN SLADE MD Aug 20, 2016 10:04
--- NOTE | 2016-08-20 10:19 | PDOC ---
PROGRESS NOTES Subjective Subjective No new complaints. Objective Objective Vital Signs Date Time Temp Pulse Resp B/P Pulse Ox O2 Delivery O2 Flow Rate FiO2 08/20/16 08:33 Nasal Cannula 08/20/16 07:00 98.0 62 19 97/56 91 98.0 08/18/16 19:21 2.0 Intake and Output 08/20/16 07:00 Intake Total 1704 ml Output Total 1000 ml Balance 704 ml Intake Oral 1154 ml IV Total 550 ml Output Urine Total 1000 ml Physical Exam Physical Exam She is supine in bed and continues with painfully limited right hip external rotation and blister right heel. Assessment Assessment Problems Medical Problems: (1) Acute on chronic renal failure Status: Acute Plan Plan of Care To continue present physical and occupational therapy follow up as tolerated. Comment Review of Relevant I have reviewed the following items marquise (where applicable) has been applied. Labs Laboratory Tests Test 08/18/16 11:58 08/18/16 16:31 08/18/16 21:02 08/19/16 05:00 Glucose (Fingerstick) 101mg/dL (70-99) 126mg/dL (70-99) 141mg/dL (70-99) White Blood Count 6.7x10^3/uL (4.0-11.0) Red Blood Count 3.77x10^6/uL (4.30-5.70) Hemoglobin 9.4g/dL (13.0-17.5) Hematocrit 30.0% (39.0-53.0) Mean Corpuscular Volume 80fL (79-100) Mean Corpuscular Hemoglobin 25pg (25-35) Mean Corpuscular Hemoglobin Concent 31g/dL (31-37) Red Cell Distribution Width 19.5% (11.5-14.5) Platelet Count 111x10^3/uL (140-400) Neutrophils (%) (Auto) 80% (31-73) Lymphocytes (%) (Auto) 9% (24-48) Monocytes (%) (Auto) 10% (0-9) Eosinophils (%) (Auto) 2% (0-3) Basophils (%) (Auto) 0% (0-3) Neutrophils # (Auto) 5.4x10^3uL (1.8-7.7) Lymphocytes # (Auto) 0.6x10^3/uL (1.0-4.8) Monocytes # (Auto) 0.6x10^3/uL (0.0-1.1) Eosinophils # (Auto) 0.1x10^3/uL (0.0-0.7) Basophils # (Auto) 0.0x10^3/uL (0.0-0.2) Prothrombin Time 25.9SEC (11.7-14.0) Prothromb Time International Ratio 2.5 (0.8-1.1) Sodium Level 137mmol/L (136-145) Potassium Level 3.9mmol/L (3.5-5.1) Chloride Level 103mmol/L (98-107) Carbon Dioxide Level 20mmol/L (21-32) Anion Gap 14 (6-14) Blood Urea Nitrogen 105mg/dL (8-26) Creatinine 2.8mg/dL (0.7-1.3) Estimated GFR (Cockcroft-Gault) 27.0 Glucose Level 103mg/dL (70-99) Calcium Level 8.3mg/dL (8.5-10.1) Phosphorus Level 5.0mg/dL (2.6-4.7) Albumin 2.6g/dL (3.4-5.0) Test 08/19/16 12:29 08/19/16 17:49 08/19/16 19:42 08/20/16 03:45 Glucose (Fingerstick) 134mg/dL (70-99) 104mg/dL (70-99) 104mg/dL (70-99) White Blood Count 6.1x10^3/uL (4.0-11.0) Red Blood Count 3.78x10^6/uL (4.30-5.70) Hemoglobin 9.5g/dL (13.0-17.5) Hematocrit 30.2% (39.0-53.0) Mean Corpuscular Volume 80fL (79-100) Mean Corpuscular Hemoglobin 25pg (25-35) Mean Corpuscular Hemoglobin Concent 32g/dL (31-37) Red Cell Distribution Width 19.7% (11.5-14.5) Platelet Count 100x10^3/uL (140-400) Neutrophils (%) (Auto) 78% (31-73) Lymphocytes (%) (Auto) 11% (24-48) Monocytes (%) (Auto) 10% (0-9) Eosinophils (%) (Auto) 1% (0-3) Basophils (%) (Auto) 1% (0-3) Neutrophils # (Auto) 4.7x10^3uL (1.8-7.7) Lymphocytes # (Auto) 0.6x10^3/uL (1.0-4.8) Monocytes # (Auto) 0.6x10^3/uL (0.0-1.1) Eosinophils # (Auto) 0.0x10^3/uL (0.0-0.7) Basophils # (Auto) 0.0x10^3/uL (0.0-0.2) Prothrombin Time 28.8SEC (11.7-14.0) Prothromb Time International Ratio 2.9 (0.8-1.1) Sodium Level 135mmol/L (136-145) Potassium Level 4.1mmol/L (3.5-5.1) Chloride Level 104mmol/L (98-107) Carbon Dioxide Level 20mmol/L (21-32) Anion Gap 11 (6-14) Blood Urea Nitrogen 104mg/dL (8-26) Creatinine 3.0mg/dL (0.7-1.3) Estimated GFR (Cockcroft-Gault) 24.9 Glucose Level 105mg/dL (70-99) Calcium Level 8.0mg/dL (8.5-10.1) Phosphorus Level 5.0mg/dL (2.6-4.7) Albumin 2.7g/dL (3.4-5.0) Test 08/20/16 07:40 Glucose (Fingerstick) 92mg/dL (70-99) Laboratory Tests Test 08/19/16 12:29 08/19/16 17:49 08/19/16 19:42 08/20/16 03:45 Glucose (Fingerstick) 134mg/dL (70-99) 104mg/dL (70-99) 104mg/dL (70-99) White Blood Count 6.1x10^3/uL (4.0-11.0) Red Blood Count 3.78x10^6/uL (4.30-5.70) Hemoglobin 9.5g/dL (13.0-17.5) Hematocrit 30.2% (39.0-53.0) Mean Corpuscular Volume 80fL (79-100) Mean Corpuscular Hemoglobin 25pg (25-35) Mean Corpuscular Hemoglobin Concent 32g/dL (31-37) Red Cell Distribution Width 19.7% (11.5-14.5) Platelet Count 100x10^3/uL (140-400) Neutrophils (%) (Auto) 78% (31-73) Lymphocytes (%) (Auto) 11% (24-48) Monocytes (%) (Auto) 10% (0-9) Eosinophils (%) (Auto) 1% (0-3) Basophils (%) (Auto) 1% (0-3) Neutrophils # (Auto) 4.7x10^3uL (1.8-7.7) Lymphocytes # (Auto) 0.6x10^3/uL (1.0-4.8) Monocytes # (Auto) 0.6x10^3/uL (0.0-1.1) Eosinophils # (Auto) 0.0x10^3/uL (0.0-0.7) Basophils # (Auto) 0.0x10^3/uL (0.0-0.2) Prothrombin Time 28.8SEC (11.7-14.0) Prothromb Time International Ratio 2.9 (0.8-1.1) Sodium Level 135mmol/L (136-145) Potassium Level 4.1mmol/L (3.5-5.1) Chloride Level 104mmol/L (98-107) Carbon Dioxide Level 20mmol/L (21-32) Anion Gap 11 (6-14) Blood Urea Nitrogen 104mg/dL (8-26) Creatinine 3.0mg/dL (0.7-1.3) Estimated GFR (Cockcroft-Gault) 24.9 Glucose Level 105mg/dL (70-99) Calcium Level 8.0mg/dL (8.5-10.1) Phosphorus Level 5.0mg/dL (2.6-4.7) Albumin 2.7g/dL (3.4-5.0) Test 08/20/16 07:40 Glucose (Fingerstick) 92mg/dL (70-99) Microbiology 08/15/16 Urine Culture - Final, Complete 08/15/16 Urine Culture Result 1 (JV) - Final, Complete 08/15/16 Urine Culture Result 2 (JV) - Final, Complete 08/15/16 Antimicrobic Susceptibility - Final, Complete Medications Current Medications Insulin Aspart (Novolog) 0-5 UNITS TIDWMEALS SQ ; Start 08/14/16 at 17:30 Dextrose 12.5 gm 12.5 gm PRN Q15MIN PRN IV SEE COMMENTS; Start 08/14/16 at 16: 45 Sodium Chloride (Iv Sodium Chloride 0.9% 1000ml Bag) 1,000 ml @ 100 mls/hr Q10H IV Last administered on 08/14/16 18:53; Start 08/14/16 at 17:30; Stop 08/15/16 at 03:29; Status DC Amiodarone HCl (Cordarone) 200 mg DAILY PO Last administered on 08/19/16 08:15 ; Start 08/15/16 at 09:00 Aspirin (Ecotrin) 81 mg DAILY PO Last administered on 08/20/16 09:25; Start 08/15/16 at 09:00 Atorvastatin Calcium (Lipitor) 40 mg QHS PO Last administered on 08/19/16 21:20 ; Start 08/14/16 at 21:00 Carvedilol (Coreg) 6.25 mg BIDWMEALS PO Last administered on 08/19/16 17:00; Start 08/14/16 at 17:30 Colestipol HCl (Colestid) 1 gm TID PO Last administered on 08/17/16 20:55; Start 08/14/16 at 21:00; Stop 08/18/16 at 10:08; Status DC Metoclopramide HCl (Reglan) 5 mg PRN BID PRN PO NAUSEA; Start 08/14/16 at 16:45 ; Stop 08/16/16 at 10:25; Status DC Sacubitril/ Valsartan (Entresto 24 Mg-26 Mg) 1 tab BID PO Last administered on 08/17/16 09:14; Start 08/14/16 at 21:00; Stop 08/17/16 at 10:16; Status DC Warfarin Sodium (Coumadin) 2.5 mg DAILY16 PO Last administered on 08/14/16 18: 50; Start 08/14/16 at 18:00; Stop 08/15/16 at 14:13; Status DC Warfarin Sodium (Coumadin Per Physician) 1 each PRN DAILY PRN MC SEE COMMENTS; Start 08/14/16 at 17:15; Stop 08/15/16 at 09:54; Status DC Sodium Polystyrene Sulfonate (Kayexalate) 60 gm 1X ONCE PO Last administered on 08/14/16 18:51; Start 08/14/16 at 18:30; Stop 08/14/16 at 18:31; Status DC Warfarin Sodium (Coumadin Per Pharmacy) 1 each PRN DAILY PRN MC SEE COMMENTS Last administered on 08/19/16 13:01; Start 08/15/16 at 10:00 Pantoprazole Sodium 40 mg 40 mg DAILYAC PO Last administered on 08/20/16 09:25 ; Start 08/15/16 at 11:30 Dobutamine HCl/ Dextrose 250 ml @ 0 mls/hr CONT PRN IV ; Start 08/15/16 at 14:00 ; Stop 08/15/16 at 14:53; Status DC Albumin Human (Albuminar) 100 ml @ 100 mls/hr 1X ONCE IV Last administered on 08/15/16 15:25; Start 08/15/16 at 14:00; Stop 08/15/16 at 14:59; Status DC Furosemide 40 mg 40 mg 1X ONCE IVP Last administered on 08/15/16 16:22; Start 08/15/16 at 15:00; Stop 08/15/16 at 15:01; Status DC Albumin Human (Albuminar) 100 ml @ 100 mls/hr 1X ONCE IV Last administered on 08/16/16 08:41; Start 08/16/16 at 09:00; Stop 08/16/16 at 09:59; Status DC Furosemide (Lasix) 40 mg 1X ONCE IVP Last administered on 08/16/16 09:45; Start 08/16/16 at 10:00; Stop 08/16/16 at 10:01; Status DC Warfarin Sodium 4 mg 4 mg 1X WARF ONCE PO Last administered on 08/15/16 16:33 ; Start 08/15/16 at 16:00; Stop 08/15/16 at 16:01; Status DC Dobutamine HCl/ Dextrose 250 ml @ 0 mls/hr CONT PRN PRN IV SEE I/O RECORD Last administered on 08/19/16 08:29; Start 08/15/16 at 14:53 Sodium Bicarbonate 50 meq 50 meq Q2HR IV Last administered on 08/15/16 18:20; Start 08/15/16 at 16:00; Stop 08/15/16 at 18:30; Status DC Magnesium Sulfate/ Dextrose (Magnesium Sulfate PREMIX 2GM) 50 ml @ 25 mls/hr PRN DAILY PRN IV for Mag < 1.7 on am labs; Start 08/15/16 at 15:30 Warfarin Sodium (Coumadin) 4 mg 1X WARF ONCE PO Last administered on 08/16/16 17:28; Start 08/16/16 at 16:00; Stop 08/16/16 at 16:01; Status DC Ondansetron HCl 4 mg 4 mg PRN Q6HRS PRN IV nausea Last administered on 02:33; Start 08/16/16 at 20:30 Ceftriaxone Sodium 1 gm/ Sodium Chloride 50 ml @ 100 mls/hr Q24H IV Last administered on 08/19/16 10:00; Start 08/17/16 at 10:00; Stop 08/19/16 at 12:56; Status DC Sodium Chloride (Iv Sodium Chloride 0.9% 1000ml Bag) 1,000 ml @ 75 mls/hr [id number] IV Last administered on 08/19/16 16:58; Start 08/17/16 at 10:15; Stop at 09:27; Status DC Warfarin Sodium (Coumadin) 5 mg 1X WARF ONCE PO ; Start 08/17/16 at 16:00; Stop 08/17/16 at 16:01; Status DC Heparin Sodium/ Sodium Chloride 1,000 unit 1X ONCE IART Last administered on 11:45; Start 08/18/16 at 11:30; Stop 08/18/16 at 11:31; Status DC Midazolam HCl (Versed) 2 mg 1X ONCE IV Last administered on 08/18/16 11:46; Start 08/18/16 at 11:30; Stop 08/18/16 at 11:31; Status DC Fentanyl Citrate (Fentanyl 2ml Vial) 100 mcg 1X ONCE IV Last administered on 11:47; Start 08/18/16 at 11:30; Stop 08/18/16 at 11:31; Status DC Lidocaine/ Epinephrine 15 ml 15 ml 1X ONCE IJ Last administered on 08/18/16 11 :44; Start 08/18/16 at 11:30; Stop 08/18/16 at 11:31; Status DC Vancomycin HCl 250 ml @ 250 mls/hr 1X ONCE IRR Last administered on 08/18/16 11:45; Start 08/18/16 at 11:30; Stop 08/18/16 at 12:29; Status DC Heparin Sodium (Porcine) (Hep Lock Adult) 500 unit 1X ONCE IV Last administered on 08/18/16 11:46; Start 08/18/16 at 11:30; Stop 08/18/16 at 11:31; Status DC Heparin Sodium (Porcine) (Hep Lock Adult) 500 unit STK-MED ONCE IV ; Start at 09:29; Stop 08/18/16 at 11:42; Status DC Lidocaine/ Epinephrine 20 ml 20 ml STK-MED ONCE .ROUTE ; Start 08/18/16 at 09:29 ; Stop 08/18/16 at 11:42; Status DC Heparin Sodium/ Sodium Chloride 500 ml @ As Directed STK-MED ONCE .ROUTE ; Start 08/18/16 at 09:29; Stop 08/18/16 at 11:42; Status DC Vancomycin HCl 250 ml @ As Directed STK-MED ONCE .ROUTE ; Start 08/18/16 at 09: 29; Stop 08/18/16 at 11:42; Status DC Fentanyl Citrate (Fentanyl 2ml Vial) 100 mcg STK-MED ONCE .ROUTE ; Start at 10:29; Stop 08/18/16 at 11:43; Status DC Midazolam HCl 2 mg 2 mg STK-MED ONCE .ROUTE ; Start 08/18/16 at 10:30; Stop at 11:43; Status DC Iron Sucrose/ Sodium Chloride (Venofer/Iv Sodium Chloride 0.9% 100ml) 110 ml @ 55 mls/hr 3X/WEEK IV Last administered on 08/19/16 14:35; Start 08/19/16 at 09: 00; Stop 08/28/16 at 10:59 Warfarin Sodium (Coumadin) 5 mg 1X WARF ONCE PO Last administered on 08/18/16 17:56; Start 08/18/16 at 16:00; Stop 08/18/16 at 16:01; Status DC Warfarin Sodium (Coumadin) 3 mg 1X WARF ONCE PO ; Start 08/19/16 at 16:00; Stop 08/19/16 at 16:01; Status Cancel Cefpodoxime Proxetil (Vantin) 100 mg BID PO Last administered on 08/20/16 09:24 ; Start 08/19/16 at 21:00 Warfarin Sodium (Coumadin) 2.5 mg 1X WARF ONCE PO Last administered on 16:59; Start 08/19/16 at 16:00; Stop 08/19/16 at 16:01; Status DC Senna/Docusate Sodium 1 tab 1 tab PRN BID PRN PO CONSTIPATION Last administered on 08/19/16 21:19; Start 08/19/16 at 13:30 Sodium Chloride 250 ml @ 0 mls/hr 1X ONCE IV Last administered on 08/19/16 14: 33; Start 08/19/16 at 13:45; Stop 08/19/16 at 13:53; Status DC Sodium Chloride (Iv Sodium Chloride 0.9% 500ml Bag) 500 ml @ 0 mls/hr 1X ONCE IV Last administered on 08/19/16 16:58; Start 08/19/16 at 16:00; Stop 08/19/16 at 16:01; Status DC Senna/Docusate Sodium (Senna Plus) 1 tab PRN BID PRN PO CONSTIPATION; Start 08/20/16 at 10:00 Active Scripts Active Entresto 24 mg-26 mg Tablet (Sacubitril/Valsartan) 1 Each Tablet 1 Tab PO BID Coumadin (Warfarin Sodium) 2.5 Mg Tablet 2.5 Mg PO DAILY16 Reported Reglan (Metoclopramide Hcl) 10 Mg Tablet 5 Mg PO PRN BID PRN Atorvastatin Calcium 40 Mg Tablet 1 Tab PO DAILY Colestid (Colestipol Hcl) 1 Gm Tablet 1 Gm PO TID Pacerone (Amiodarone Hcl) 200 Mg Tablet 200 Mg PO DAILY Lasix (Furosemide) 80 Mg Tablet 1 Tab PO BID Gabapentin 100 Mg Capsule 1 Cap PO TID Aspir 81 (Aspirin) 81 Mg Tablet.dr 1 Tab PO DAILY Coreg (Carvedilol) 6.25 Mg Tablet 1 Tab PO BID K-Tab ER (Potassium Chloride) 20 Meq Tablet.er 20 Meq PO BID Vitals/I & O Vital Sign - Last 24 Hours 08/19/16 08/19/16 08/19/16 08/19/16 11:00 15:00 17:00 19:25 Temp 97.3 98.5 97.3 98.5 Pulse 64 60 61 59 Resp 16 14 20 B/P 87/53 111/64 111/64 84/52 Pulse Ox 91 91 100 O2 Delivery Room Air Room Air Room Air 08/19/16 08/19/16 08/20/16 08/20/16 20:00 23:20 03:25 07:00 Temp 98.4 97.9 98.0 98.4 97.9 98.0 Pulse 61 64 62 Resp 20 18 19 B/P 97/55 99/54 97/56 Pulse Ox 98 96 91 O2 Delivery Nasal Cannula Room Air Room Air Room Air 08/20/16 08:33 O2 Delivery Nasal Cannula Intake and Output 08/19/16 08/19/16 08/20/16 15:00 23:00 07:00 Intake Total 536 ml 868 ml 300 ml Output Total 0 ml 1000 ml Balance 536 ml 868 ml -700 ml MADDIE AMBROSE MD Aug 20, 2016 10:19
[2016-08-20] MEDS ORDERED: BISACODYL 10 MG SUPP.RECT. PR ONE ×2 (11:00→14:30)
[2016-08-20 11:11] VITALS: BP 96/52
[2016-08-20] MEDS: CARVEDILOL 6.25 MG TABLET. PO SCH ×2 (12:05→16:49)
[2016-08-20] MEDS: AMIODARONE HCL 200 MG TABLET. PO SCH (12:06)
[2016-08-20] MEDS: SENNOSIDES/DOCUSATE 8.6/50MG TABLET. PO PRN (14:18)
[2016-08-20 14:44] VITALS: BP 101/58
[2016-08-20] MEDS ORDERED: WARFARIN 2 MG TABLET. PO ONE (16:00)
--- NOTE | 2016-08-20 16:41 | PDOC ---
PROGRESS NOTES Subjective Subjective Pt complains of constipation and some nausea No cardiac complaints Objective Objective Vital Signs Date Time Temp Pulse Resp B/P Pulse Ox O2 Delivery O2 Flow Rate FiO2 08/20/16 14:44 98.0 63 18 101/58 93 Room Air 98.0 08/18/16 19:21 2.0 Intake and Output 08/20/16 07:00 Intake Total 1704 ml Output Total 1000 ml Balance 704 ml Intake Oral 1154 ml IV Total 550 ml Output Urine Total 1000 ml Physical Exam Physical Exam Neck 1cm JVD Lungs moving air better Heart no changes Assessment Assessment Pt having problems with constipation and urinary retention. I agree with present plan. Continue dobutamine drip. Problems Medical Problems: (1) Acute on chronic renal failure Status: Acute Comment Review of Relevant I have reviewed the following items marquise (where applicable) has been applied. Labs Laboratory Tests Test 08/18/16 21:02 08/19/16 05:00 08/19/16 12:29 08/19/16 17:49 Glucose (Fingerstick) 141mg/dL (70-99) 134mg/dL (70-99) 104mg/dL (70-99) White Blood Count 6.7x10^3/uL (4.0-11.0) Red Blood Count 3.77x10^6/uL (4.30-5.70) Hemoglobin 9.4g/dL (13.0-17.5) Hematocrit 30.0% (39.0-53.0) Mean Corpuscular Volume 80fL (79-100) Mean Corpuscular Hemoglobin 25pg (25-35) Mean Corpuscular Hemoglobin Concent 31g/dL (31-37) Red Cell Distribution Width 19.5% (11.5-14.5) Platelet Count 111x10^3/uL (140-400) Neutrophils (%) (Auto) 80% (31-73) Lymphocytes (%) (Auto) 9% (24-48) Monocytes (%) (Auto) 10% (0-9) Eosinophils (%) (Auto) 2% (0-3) Basophils (%) (Auto) 0% (0-3) Neutrophils # (Auto) 5.4x10^3uL (1.8-7.7) Lymphocytes # (Auto) 0.6x10^3/uL (1.0-4.8) Monocytes # (Auto) 0.6x10^3/uL (0.0-1.1) Eosinophils # (Auto) 0.1x10^3/uL (0.0-0.7) Basophils # (Auto) 0.0x10^3/uL (0.0-0.2) Prothrombin Time 25.9SEC (11.7-14.0) Prothromb Time International Ratio 2.5 (0.8-1.1) Sodium Level 137mmol/L (136-145) Potassium Level 3.9mmol/L (3.5-5.1) Chloride Level 103mmol/L (98-107) Carbon Dioxide Level 20mmol/L (21-32) Anion Gap 14 (6-14) Blood Urea Nitrogen 105mg/dL (8-26) Creatinine 2.8mg/dL (0.7-1.3) Estimated GFR (Cockcroft-Gault) 27.0 Glucose Level 103mg/dL (70-99) Calcium Level 8.3mg/dL (8.5-10.1) Phosphorus Level 5.0mg/dL (2.6-4.7) Albumin 2.6g/dL (3.4-5.0) Test 08/19/16 19:42 08/20/16 03:45 08/20/16 07:40 08/20/16 10:58 Glucose (Fingerstick) 104mg/dL (70-99) 92mg/dL (70-99) 111mg/dL (70-99) White Blood Count 6.1x10^3/uL (4.0-11.0) Red Blood Count 3.78x10^6/uL (4.30-5.70) Hemoglobin 9.5g/dL (13.0-17.5) Hematocrit 30.2% (39.0-53.0) Mean Corpuscular Volume 80fL (79-100) Mean Corpuscular Hemoglobin 25pg (25-35) Mean Corpuscular Hemoglobin Concent 32g/dL (31-37) Red Cell Distribution Width 19.7% (11.5-14.5) Platelet Count 100x10^3/uL (140-400) Neutrophils (%) (Auto) 78% (31-73) Lymphocytes (%) (Auto) 11% (24-48) Monocytes (%) (Auto) 10% (0-9) Eosinophils (%) (Auto) 1% (0-3) Basophils (%) (Auto) 1% (0-3) Neutrophils # (Auto) 4.7x10^3uL (1.8-7.7) Lymphocytes # (Auto) 0.6x10^3/uL (1.0-4.8) Monocytes # (Auto) 0.6x10^3/uL (0.0-1.1) Eosinophils # (Auto) 0.0x10^3/uL (0.0-0.7) Basophils # (Auto) 0.0x10^3/uL (0.0-0.2) Prothrombin Time 28.8SEC (11.7-14.0) Prothromb Time International Ratio 2.9 (0.8-1.1) Sodium Level 135mmol/L (136-145) Potassium Level 4.1mmol/L (3.5-5.1) Chloride Level 104mmol/L (98-107) Carbon Dioxide Level 20mmol/L (21-32) Anion Gap 11 (6-14) Blood Urea Nitrogen 104mg/dL (8-26) Creatinine 3.0mg/dL (0.7-1.3) Estimated GFR (Cockcroft-Gault) 24.9 Glucose Level 105mg/dL (70-99) Calcium Level 8.0mg/dL (8.5-10.1) Phosphorus Level 5.0mg/dL (2.6-4.7) Albumin 2.7g/dL (3.4-5.0) Laboratory Tests Test 08/19/16 17:49 08/19/16 19:42 08/20/16 03:45 08/20/16 07:40 Glucose (Fingerstick) 104mg/dL (70-99) 104mg/dL (70-99) 92mg/dL (70-99) White Blood Count 6.1x10^3/uL (4.0-11.0) Red Blood Count 3.78x10^6/uL (4.30-5.70) Hemoglobin 9.5g/dL (13.0-17.5) Hematocrit 30.2% (39.0-53.0) Mean Corpuscular Volume 80fL (79-100) Mean Corpuscular Hemoglobin 25pg (25-35) Mean Corpuscular Hemoglobin Concent 32g/dL (31-37) Red Cell Distribution Width 19.7% (11.5-14.5) Platelet Count 100x10^3/uL (140-400) Neutrophils (%) (Auto) 78% (31-73) Lymphocytes (%) (Auto) 11% (24-48) Monocytes (%) (Auto) 10% (0-9) Eosinophils (%) (Auto) 1% (0-3) Basophils (%) (Auto) 1% (0-3) Neutrophils # (Auto) 4.7x10^3uL (1.8-7.7) Lymphocytes # (Auto) 0.6x10^3/uL (1.0-4.8) Monocytes # (Auto) 0.6x10^3/uL (0.0-1.1) Eosinophils # (Auto) 0.0x10^3/uL (0.0-0.7) Basophils # (Auto) 0.0x10^3/uL (0.0-0.2) Prothrombin Time 28.8SEC (11.7-14.0) Prothromb Time International Ratio 2.9 (0.8-1.1) Sodium Level 135mmol/L (136-145) Potassium Level 4.1mmol/L (3.5-5.1) Chloride Level 104mmol/L (98-107) Carbon Dioxide Level 20mmol/L (21-32) Anion Gap 11 (6-14) Blood Urea Nitrogen 104mg/dL (8-26) Creatinine 3.0mg/dL (0.7-1.3) Estimated GFR (Cockcroft-Gault) 24.9 Glucose Level 105mg/dL (70-99) Calcium Level 8.0mg/dL (8.5-10.1) Phosphorus Level 5.0mg/dL (2.6-4.7) Albumin 2.7g/dL (3.4-5.0) Test 08/20/16 10:58 Glucose (Fingerstick) 111mg/dL (70-99) Microbiology 08/15/16 Urine Culture - Final, Complete 08/15/16 Urine Culture Result 1 (JV) - Final, Complete 08/15/16 Urine Culture Result 2 (JV) - Final, Complete 08/15/16 Antimicrobic Susceptibility - Final, Complete Medications Current Medications Insulin Aspart (Novolog) 0-5 UNITS TIDWMEALS SQ ; Start 08/14/16 at 17:30 Dextrose 12.5 gm 12.5 gm PRN Q15MIN PRN IV SEE COMMENTS; Start 08/14/16 at 16: 45 Sodium Chloride (Iv Sodium Chloride 0.9% 1000ml Bag) 1,000 ml @ 100 mls/hr Q10H IV Last administered on 08/14/16 18:53; Start 08/14/16 at 17:30; Stop 08/15/16 at 03:29; Status DC Amiodarone HCl (Cordarone) 200 mg DAILY PO Last administered on 08/20/16 12:06 ; Start 08/15/16 at 09:00 Aspirin (Ecotrin) 81 mg DAILY PO Last administered on 08/20/16 09:25; Start 08/15/16 at 09:00 Atorvastatin Calcium (Lipitor) 40 mg QHS PO Last administered on 08/19/16 21:20 ; Start 08/14/16 at 21:00 Carvedilol (Coreg) 6.25 mg BIDWMEALS PO Last administered on 08/20/16 12:05; Start 08/14/16 at 17:30 Colestipol HCl (Colestid) 1 gm TID PO Last administered on 08/17/16 20:55; Start 08/14/16 at 21:00; Stop 08/18/16 at 10:08; Status DC Metoclopramide HCl (Reglan) 5 mg PRN BID PRN PO NAUSEA; Start 08/14/16 at 16:45 ; Stop 08/16/16 at 10:25; Status DC Sacubitril/ Valsartan (Entresto 24 Mg-26 Mg) 1 tab BID PO Last administered on 08/17/16 09:14; Start 08/14/16 at 21:00; Stop 08/17/16 at 10:16; Status DC Warfarin Sodium (Coumadin) 2.5 mg DAILY16 PO Last administered on 08/14/16 18: 50; Start 08/14/16 at 18:00; Stop 08/15/16 at 14:13; Status DC Warfarin Sodium (Coumadin Per Physician) 1 each PRN DAILY PRN MC SEE COMMENTS; Start 08/14/16 at 17:15; Stop 08/15/16 at 09:54; Status DC Sodium Polystyrene Sulfonate (Kayexalate) 60 gm 1X ONCE PO Last administered on 08/14/16 18:51; Start 08/14/16 at 18:30; Stop 08/14/16 at 18:31; Status DC Warfarin Sodium (Coumadin Per Pharmacy) 1 each PRN DAILY PRN MC SEE COMMENTS Last administered on 08/20/16 14:44; Start 08/15/16 at 10:00 Pantoprazole Sodium 40 mg 40 mg DAILYAC PO Last administered on 08/20/16 09:25 ; Start 08/15/16 at 11:30 Dobutamine HCl/ Dextrose 250 ml @ 0 mls/hr CONT PRN IV ; Start 08/15/16 at 14:00 ; Stop 08/15/16 at 14:53; Status DC Albumin Human (Albuminar) 100 ml @ 100 mls/hr 1X ONCE IV Last administered on 08/15/16 15:25; Start 08/15/16 at 14:00; Stop 08/15/16 at 14:59; Status DC Furosemide 40 mg 40 mg 1X ONCE IVP Last administered on 08/15/16 16:22; Start 08/15/16 at 15:00; Stop 08/15/16 at 15:01; Status DC Albumin Human (Albuminar) 100 ml @ 100 mls/hr 1X ONCE IV Last administered on 08/16/16 08:41; Start 08/16/16 at 09:00; Stop 08/16/16 at 09:59; Status DC Furosemide (Lasix) 40 mg 1X ONCE IVP Last administered on 08/16/16 09:45; Start 08/16/16 at 10:00; Stop 08/16/16 at 10:01; Status DC Warfarin Sodium 4 mg 4 mg 1X WARF ONCE PO Last administered on 08/15/16 16:33 ; Start 08/15/16 at 16:00; Stop 08/15/16 at 16:01; Status DC Dobutamine HCl/ Dextrose 250 ml @ 0 mls/hr CONT PRN PRN IV SEE I/O RECORD Last administered on 08/19/16 08:29; Start 08/15/16 at 14:53 Sodium Bicarbonate 50 meq 50 meq Q2HR IV Last administered on 08/15/16 18:20; Start 08/15/16 at 16:00; Stop 08/15/16 at 18:30; Status DC Magnesium Sulfate/ Dextrose (Magnesium Sulfate PREMIX 2GM) 50 ml @ 25 mls/hr PRN DAILY PRN IV for Mag < 1.7 on am labs; Start 08/15/16 at 15:30 Warfarin Sodium (Coumadin) 4 mg 1X WARF ONCE PO Last administered on 08/16/16 17:28; Start 08/16/16 at 16:00; Stop 08/16/16 at 16:01; Status DC Ondansetron HCl 4 mg 4 mg PRN Q6HRS PRN IV nausea Last administered on 02:33; Start 08/16/16 at 20:30 Ceftriaxone Sodium 1 gm/ Sodium Chloride 50 ml @ 100 mls/hr Q24H IV Last administered on 08/19/16 10:00; Start 08/17/16 at 10:00; Stop 08/19/16 at 12:56; Status DC Sodium Chloride (Iv Sodium Chloride 0.9% 1000ml Bag) 1,000 ml @ 75 mls/hr [id number] IV Last administered on 08/19/16 16:58; Start 08/17/16 at 10:15; Stop at 09:27; Status DC Warfarin Sodium (Coumadin) 5 mg 1X WARF ONCE PO ; Start 08/17/16 at 16:00; Stop 08/17/16 at 16:01; Status DC Heparin Sodium/ Sodium Chloride 1,000 unit 1X ONCE IART Last administered on 11:45; Start 08/18/16 at 11:30; Stop 08/18/16 at 11:31; Status DC Midazolam HCl (Versed) 2 mg 1X ONCE IV Last administered on 08/18/16 11:46; Start 08/18/16 at 11:30; Stop 08/18/16 at 11:31; Status DC Fentanyl Citrate (Fentanyl 2ml Vial) 100 mcg 1X ONCE IV Last administered on 11:47; Start 08/18/16 at 11:30; Stop 08/18/16 at 11:31; Status DC Lidocaine/ Epinephrine 15 ml 15 ml 1X ONCE IJ Last administered on 08/18/16 11 :44; Start 08/18/16 at 11:30; Stop 08/18/16 at 11:31; Status DC Vancomycin HCl 250 ml @ 250 mls/hr 1X ONCE IRR Last administered on 08/18/16 11:45; Start 08/18/16 at 11:30; Stop 08/18/16 at 12:29; Status DC Heparin Sodium (Porcine) (Hep Lock Adult) 500 unit 1X ONCE IV Last administered on 08/18/16 11:46; Start 08/18/16 at 11:30; Stop 08/18/16 at 11:31; Status DC Heparin Sodium (Porcine) (Hep Lock Adult) 500 unit STK-MED ONCE IV ; Start at 09:29; Stop 08/18/16 at 11:42; Status DC Lidocaine/ Epinephrine 20 ml 20 ml STK-MED ONCE .ROUTE ; Start 08/18/16 at 09:29 ; Stop 08/18/16 at 11:42; Status DC Heparin Sodium/ Sodium Chloride 500 ml @ As Directed STK-MED ONCE .ROUTE ; Start 08/18/16 at 09:29; Stop 08/18/16 at 11:42; Status DC Vancomycin HCl 250 ml @ As Directed STK-MED ONCE .ROUTE ; Start 08/18/16 at 09: 29; Stop 08/18/16 at 11:42; Status DC Fentanyl Citrate (Fentanyl 2ml Vial) 100 mcg STK-MED ONCE .ROUTE ; Start at 10:29; Stop 08/18/16 at 11:43; Status DC Midazolam HCl 2 mg 2 mg STK-MED ONCE .ROUTE ; Start 08/18/16 at 10:30; Stop at 11:43; Status DC Iron Sucrose/ Sodium Chloride (Venofer/Iv Sodium Chloride 0.9% 100ml) 110 ml @ 55 mls/hr 3X/WEEK IV Last administered on 08/19/16 14:35; Start 08/19/16 at 09: 00; Stop 08/28/16 at 10:59 Warfarin Sodium (Coumadin) 5 mg 1X WARF ONCE PO Last administered on 08/18/16 17:56; Start 08/18/16 at 16:00; Stop 08/18/16 at 16:01; Status DC Warfarin Sodium (Coumadin) 3 mg 1X WARF ONCE PO ; Start 08/19/16 at 16:00; Stop 08/19/16 at 16:01; Status Cancel Cefpodoxime Proxetil (Vantin) 100 mg BID PO Last administered on 08/20/16 09:24 ; Start 08/19/16 at 21:00 Warfarin Sodium (Coumadin) 2.5 mg 1X WARF ONCE PO Last administered on 16:59; Start 08/19/16 at 16:00; Stop 08/19/16 at 16:01; Status DC Senna/Docusate Sodium 1 tab 1 tab PRN BID PRN PO CONSTIPATION Last administered on 08/20/16 14:18; Start 08/19/16 at 13:30; Stop 08/20/16 at 14:43; Status DC Sodium Chloride 250 ml @ 0 mls/hr 1X ONCE IV Last administered on 08/19/16 14: 33; Start 08/19/16 at 13:45; Stop 08/19/16 at 13:53; Status DC Sodium Chloride (Iv Sodium Chloride 0.9% 500ml Bag) 500 ml @ 0 mls/hr 1X ONCE IV Last administered on 08/19/16 16:58; Start 08/19/16 at 16:00; Stop 08/19/16 at 16:01; Status DC Senna/Docusate Sodium (Senna Plus) 1 tab PRN BID PRN PO CONSTIPATION; Start 08/20/16 at 10:00 Bisacodyl (Dulcolax Supp) 10 mg 1X ONCE [place] ; Start 08/20/16 at 11:00; Stop at 11:00; Status DC Bisacodyl (Dulcolax Supp) 10 mg 1X ONCE [place] ; Start 08/20/16 at 14:30; Stop at 14:31; Status DC Warfarin Sodium (Coumadin) 2 mg 1X WARF ONCE PO ; Start 08/20/16 at 16:00; Stop 08/20/16 at 16:01; Status DC Active Scripts Active Entresto 24 mg-26 mg Tablet (Sacubitril/Valsartan) 1 Each Tablet 1 Tab PO BID Coumadin (Warfarin Sodium) 2.5 Mg Tablet 2.5 Mg PO DAILY16 Reported Reglan (Metoclopramide Hcl) 10 Mg Tablet 5 Mg PO PRN BID PRN Atorvastatin Calcium 40 Mg Tablet 1 Tab PO DAILY Colestid (Colestipol Hcl) 1 Gm Tablet 1 Gm PO TID Pacerone (Amiodarone Hcl) 200 Mg Tablet 200 Mg PO DAILY Lasix (Furosemide) 80 Mg Tablet 1 Tab PO BID Gabapentin 100 Mg Capsule 1 Cap PO TID Aspir 81 (Aspirin) 81 Mg Tablet.dr 1 Tab PO DAILY Coreg (Carvedilol) 6.25 Mg Tablet 1 Tab PO BID K-Tab ER (Potassium Chloride) 20 Meq Tablet.er 20 Meq PO BID Vitals/I & O Vital Sign - Last 24 Hours 08/19/16 08/19/16 08/19/16 08/19/16 17:00 19:25 20:00 23:20 Temp 98.5 98.4 98.5 98.4 Pulse 61 59 61 Resp 20 20 B/P 111/64 84/52 97/55 Pulse Ox 100 98 O2 Delivery Room Air Nasal Cannula Room Air 08/20/16 08/20/16 08/20/16 08/20/16 03:25 07:00 08:33 11:11 Temp 97.9 98.0 98.1 97.9 98.0 98.1 Pulse 64 62 62 Resp 18 19 18 B/P 99/54 97/56 96/52 Pulse Ox 96 91 97 O2 Delivery Room Air Room Air Nasal Cannula Room Air 08/20/16 08/20/16 08/20/16 12:05 12:06 14:44 Temp 98.0 98.0 Pulse 62 62 63 Resp 18 B/P 96/52 96/52 101/58 Pulse Ox 93 O2 Delivery Room Air Intake and Output 08/19/16 08/19/16 08/20/16 15:00 23:00 07:00 Intake Total 536 ml 868 ml 300 ml Output Total 0 ml 1000 ml Balance 536 ml 868 ml -700 ml HEATHER CHERRY MD Aug 20, 2016 16:41
--- NOTE | 2016-08-20 16:46 | RAD ---
Bilateral lower extremity arterial ultrasound, 09/19/2016: History: Peripheral vascular disease, diabetes There are moderate arterial calcific plaquing bilaterally. The left common femoral artery demonstrates a triphasic Doppler waveform. The profunda femoris Doppler waveform is monophasic. The Doppler waveforms become monophasic in the left superficial femoral and popliteal arteries. No significant focal velocity elevation is seen to suggest high-grade focal stenosis. Patent posterior tibial, peroneal and anterior tibial arteries are identified in the left lower leg demonstrating monophasic Doppler waveforms. Blood flow could not be identified in the left dorsalis pedis artery. On the right, the common femoral Doppler waveform is monophasic. The profunda femoris waveform is triphasic. The right superficial femoral and popliteal Doppler waveforms are monophasic. A mild velocity elevation was identified in the right popliteal artery up to 115 cm/s. A patent posterior tibial artery was evident proximally in the right lower leg demonstrating a monophasic Doppler waveform. A patent posterior tibial artery could not be delineated at the ankle level. Patent peroneal and anterior tibial arteries could not be visualized in the right lower leg. No significant blood flow is evident in the right dorsalis pedis artery. IMPRESSION: 1. Moderate calcific plaquing in both lower extremities. 2. Degradation of the Doppler waveforms at and distal to the superficial femoral artery levels bilaterally. 3. Probable occlusions of the peroneal, anterior tibial, distal posterior tibial and dorsalis pedis arteries on the right. 4. Occlusion of the left dorsalis pedis artery.
[2016-08-20 19:25] VITALS: BP_SYST 108; BP_SYST 95; BP_DIAS 56; BP_DIAS 65
[2016-08-20] MEDS: ATORVASTATIN CALCIUM 40 MG TABLET. PO SCH (20:36)
[2016-08-20 23:30] VITALS: BP 82/40
[2016-08-21] MEDS: ONDANSETRON PF 4 MG/2 ML VIAL. IV PRN ×3 (01:27→17:21)
[2016-08-21 03:30] VITALS: BP 103/55
[2016-08-21 06:53] LABS: BASO % 1 % (0-3); EOS % 1 % (0-3); HEMATOCRIT 28.9 % (39.0-53.0); LYMPH # 0.6 x10^3/uL (1.0-4.8); LYMPH % 11 % (24-48); MEAN CORPUSCULAR HEMOGLOBIN 25 pg (25-35); MEAN CORPUSCULAR HGB CONC 31 g/dL (31-37); MEAN CORPUSCULAR VOLUME 80 fL (79-100); MONO % 9 % (0-9); NEUT % 79 % (31-73); PLATELET COUNT 100 x10^3/uL (140-400); RED BLOOD COUNT 3.61 x10^6/uL (4.30-5.70); RED CELL DISTRIBUTION WIDTH 19.7 % (11.5-14.5)
[2016-08-21 07:00] VITALS: BP 104/58
[2016-08-21 07:02] LABS: PROTHROMBIN TIME PATIENT 21.6 SEC (11.7-14.0)
[2016-08-21 07:07] LABS: ALBUMIN 2.5 g/dL (3.4-5.0); CALCIUM 8.1 mg/dL (8.5-10.1); CREATININE 2.9 mg/dL (0.7-1.3); GFR 25.9; PHOSPHORUS 4.9 mg/dL (2.6-4.7); POTASSIUM 3.7 mmol/L (3.5-5.1)
--- NOTE | 2016-08-21 07:57 | CONS ---
DATE OF CONSULTATION: 08/20/2016 CHIEF COMPLAINT: Urinary retention, acute renal failure. HISTORY OF PRESENT ILLNESS: This is a 71-year-old female that was admitted to the hospital due to acute renal failure on top of chronic kidney disease. At the time of admission, her potassium was 6.0, her BUN is 142 and her creatinine is 3.8. The patient underwent a bladder scan and was found to have greater than 500 mL of urine in the bladder. A Whiteside catheter was placed and they received 600 mL of urine. The patient states that she had no symptoms, she did not feel full, the bladder did not hurt. The patient has a history of chronic kidney disease, but her elevated creatinine and BUN much greater than what she normally experiences. PAST MEDICAL HISTORY: The patient is a type 2 diabetic, history of chronic kidney disease, congestive heart failure, hypertension, pulmonary hypertension. PAST SURGICAL HISTORY: The patient has had a cholecystectomy, pacemaker placed. She states that she is 4, para 3 and had 3 vaginal deliveries. REVIEW OF SYSTEMS: A 14-point review of systems performed, most significant was her chief complaint. ALLERGIES: THE PATIENT IS ALLERGIC TO IV CONTRAST, STRAWBERRIES. PHYSICAL EXAMINATION: GENERAL DESCRIPTION: A 71-year-old female, moderately obese, resting comfortably in bed. She denies any acute pain or discomfort. She is alert and oriented. ABDOMEN: Moderately obese. She denies flank pain to palpation. There are no palpable abdominal masses. She denies suprapubic tenderness. GENITALIA: The patient has an indwelling Whiteside catheter draining desiree-colored urine. EXTREMITIES: Negative for cyanosis, mild edema. LABORATORY STUDIES: The patient's hemoglobin is 9.5, hematocrit is 30.2, platelet count 100,000. Chemistries: The patient's potassium now is 4.1. Her current BUN is 104, creatinine is 3.0, which is improved after Whiteside catheter drainage. X-RAY STUDIES: Ultrasound of the abdomen and renal system performed. She has bilateral renal cysts. There is no evidence of hydronephrosis, no evidence of kidney stones or obstruction. IMPRESSION: 1. Urinary retention (600 mL). 2. 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 3. Acute renal failure on top of chronic kidney disease. 4. Diabetes. PLANS: 1. I will continue Whiteside catheter until the patient reaches her baseline creatinine level. 2. Start Flomax 1 tablet p.o. at bedtime prior to discontinuing her Whiteside catheter. 3. Follow her postvoid residual urine volumes with bladder scan after the catheter has been removed. 4. The patient may need cystoscopy in the future. 5. If she does have a hypotonic flaccid bladder, then it may be necessary to teach herself intermittent catheterization. Thank you for the opportunity to participate in evaluation of this patient. MARLON HU DO DR: ARIA/david JOB#: [id number] / [id number]
[2016-08-21] MEDS: INSULIN ASPART 300 UNITS/3 ML INSULN.PEN SQ SCH ×3 (08:00→17:00)
--- NOTE | 2016-08-21 09:42 | PDOC ---
PROGRESS NOTES Subjective Subjective She admits continued hip pain. Objective Objective Vital Signs Date Time Temp Pulse Resp B/P Pulse Ox O2 Delivery O2 Flow Rate FiO2 08/21/16 08:33 Nasal Cannula 1.0 08/21/16 07:00 98.2 62 19 104/58 92 98.2 Intake and Output 08/21/16 07:00 Intake Total 1996.15 ml Output Total 1100 ml Balance 896.15 ml Intake Oral 1040 ml IV Total 956.15 ml Output Urine Total 1100 ml Physical Exam Physical Exam She is sitting up in bedside chair and seems comfortable.She had peripheral vascular disease of bot lower extremities,right >left.I am not sure she is a candidate for surgery but will ask for vascular surgical advise. Assessment Assessment Problems Medical Problems: (1) Acute on chronic renal failure Status: Acute Plan Plan of Care To ask for radiology to inject painful right hip joint under flouroscopy. Comment Review of Relevant I have reviewed the following items marquise (where applicable) has been applied. Labs Laboratory Tests Test 08/19/16 12:29 08/19/16 17:49 08/19/16 19:42 08/20/16 03:45 Glucose (Fingerstick) 134mg/dL (70-99) 104mg/dL (70-99) 104mg/dL (70-99) White Blood Count 6.1x10^3/uL (4.0-11.0) Red Blood Count 3.78x10^6/uL (4.30-5.70) Hemoglobin 9.5g/dL (13.0-17.5) Hematocrit 30.2% (39.0-53.0) Mean Corpuscular Volume 80fL (79-100) Mean Corpuscular Hemoglobin 25pg (25-35) Mean Corpuscular Hemoglobin Concent 32g/dL (31-37) Red Cell Distribution Width 19.7% (11.5-14.5) Platelet Count 100x10^3/uL (140-400) Neutrophils (%) (Auto) 78% (31-73) Lymphocytes (%) (Auto) 11% (24-48) Monocytes (%) (Auto) 10% (0-9) Eosinophils (%) (Auto) 1% (0-3) Basophils (%) (Auto) 1% (0-3) Neutrophils # (Auto) 4.7x10^3uL (1.8-7.7) Lymphocytes # (Auto) 0.6x10^3/uL (1.0-4.8) Monocytes # (Auto) 0.6x10^3/uL (0.0-1.1) Eosinophils # (Auto) 0.0x10^3/uL (0.0-0.7) Basophils # (Auto) 0.0x10^3/uL (0.0-0.2) Prothrombin Time 28.8SEC (11.7-14.0) Prothromb Time International Ratio 2.9 (0.8-1.1) Sodium Level 135mmol/L (136-145) Potassium Level 4.1mmol/L (3.5-5.1) Chloride Level 104mmol/L (98-107) Carbon Dioxide Level 20mmol/L (21-32) Anion Gap 11 (6-14) Blood Urea Nitrogen 104mg/dL (8-26) Creatinine 3.0mg/dL (0.7-1.3) Estimated GFR (Cockcroft-Gault) 24.9 Glucose Level 105mg/dL (70-99) Calcium Level 8.0mg/dL (8.5-10.1) Phosphorus Level 5.0mg/dL (2.6-4.7) Albumin 2.7g/dL (3.4-5.0) Test 08/20/16 07:40 08/20/16 10:58 08/20/16 16:23 08/20/16 20:35 Glucose (Fingerstick) 92mg/dL (70-99) 111mg/dL (70-99) 102mg/dL (70-99) 99mg/dL (70-99) Test 08/21/16 06:20 08/21/16 07:41 White Blood Count 6.0x10^3/uL (4.0-11.0) Red Blood Count 3.61x10^6/uL (4.30-5.70) Hemoglobin 9.0g/dL (13.0-17.5) Hematocrit 28.9% (39.0-53.0) Mean Corpuscular Volume 80fL (79-100) Mean Corpuscular Hemoglobin 25pg (25-35) Mean Corpuscular Hemoglobin Concent 31g/dL (31-37) Red Cell Distribution Width 19.7% (11.5-14.5) Platelet Count 100x10^3/uL (140-400) Neutrophils (%) (Auto) 79% (31-73) Lymphocytes (%) (Auto) 11% (24-48) Monocytes (%) (Auto) 9% (0-9) Eosinophils (%) (Auto) 1% (0-3) Basophils (%) (Auto) 1% (0-3) Neutrophils # (Auto) 4.8x10^3uL (1.8-7.7) Lymphocytes # (Auto) 0.6x10^3/uL (1.0-4.8) Monocytes # (Auto) 0.6x10^3/uL (0.0-1.1) Eosinophils # (Auto) 0.0x10^3/uL (0.0-0.7) Basophils # (Auto) 0.0x10^3/uL (0.0-0.2) Prothrombin Time 21.6SEC (11.7-14.0) Prothromb Time International Ratio 2.0 (0.8-1.1) Sodium Level 132mmol/L (136-145) Potassium Level 3.7mmol/L (3.5-5.1) Chloride Level 101mmol/L (98-107) Carbon Dioxide Level 18mmol/L (21-32) Anion Gap 13 (6-14) Blood Urea Nitrogen 101mg/dL (8-26) Creatinine 2.9mg/dL (0.7-1.3) Estimated GFR (Cockcroft-Gault) 25.9 Glucose Level 220mg/dL (70-99) Calcium Level 8.1mg/dL (8.5-10.1) Phosphorus Level 4.9mg/dL (2.6-4.7) Albumin 2.5g/dL (3.4-5.0) Glucose (Fingerstick) 98mg/dL (70-99) Laboratory Tests Test 08/20/16 10:58 08/20/16 16:23 08/20/16 20:35 08/21/16 06:20 Glucose (Fingerstick) 111mg/dL (70-99) 102mg/dL (70-99) 99mg/dL (70-99) White Blood Count 6.0x10^3/uL (4.0-11.0) Red Blood Count 3.61x10^6/uL (4.30-5.70) Hemoglobin 9.0g/dL (13.0-17.5) Hematocrit 28.9% (39.0-53.0) Mean Corpuscular Volume 80fL (79-100) Mean Corpuscular Hemoglobin 25pg (25-35) Mean Corpuscular Hemoglobin Concent 31g/dL (31-37) Red Cell Distribution Width 19.7% (11.5-14.5) Platelet Count 100x10^3/uL (140-400) Neutrophils (%) (Auto) 79% (31-73) Lymphocytes (%) (Auto) 11% (24-48) Monocytes (%) (Auto) 9% (0-9) Eosinophils (%) (Auto) 1% (0-3) Basophils (%) (Auto) 1% (0-3) Neutrophils # (Auto) 4.8x10^3uL (1.8-7.7) Lymphocytes # (Auto) 0.6x10^3/uL (1.0-4.8) Monocytes # (Auto) 0.6x10^3/uL (0.0-1.1) Eosinophils # (Auto) 0.0x10^3/uL (0.0-0.7) Basophils # (Auto) 0.0x10^3/uL (0.0-0.2) Prothrombin Time 21.6SEC (11.7-14.0) Prothromb Time International Ratio 2.0 (0.8-1.1) Sodium Level 132mmol/L (136-145) Potassium Level 3.7mmol/L (3.5-5.1) Chloride Level 101mmol/L (98-107) Carbon Dioxide Level 18mmol/L (21-32) Anion Gap 13 (6-14) Blood Urea Nitrogen 101mg/dL (8-26) Creatinine 2.9mg/dL (0.7-1.3) Estimated GFR (Cockcroft-Gault) 25.9 Glucose Level 220mg/dL (70-99) Calcium Level 8.1mg/dL (8.5-10.1) Phosphorus Level 4.9mg/dL (2.6-4.7) Albumin 2.5g/dL (3.4-5.0) Test 08/21/16 07:41 Glucose (Fingerstick) 98mg/dL (70-99) Microbiology 08/15/16 Urine Culture - Final, Complete 08/15/16 Urine Culture Result 1 (JV) - Final, Complete 08/15/16 Urine Culture Result 2 (JV) - Final, Complete 08/15/16 Antimicrobic Susceptibility - Final, Complete Medications Current Medications Insulin Aspart (Novolog) 0-5 UNITS TIDWMEALS SQ ; Start 08/14/16 at 17:30 Dextrose 12.5 gm 12.5 gm PRN Q15MIN PRN IV SEE COMMENTS; Start 08/14/16 at 16: 45 Sodium Chloride (Iv Sodium Chloride 0.9% 1000ml Bag) 1,000 ml @ 100 mls/hr Q10H IV Last administered on 08/14/16 18:53; Start 08/14/16 at 17:30; Stop 08/15/16 at 03:29; Status DC Amiodarone HCl (Cordarone) 200 mg DAILY PO Last administered on 08/20/16 12:06 ; Start 08/15/16 at 09:00 Aspirin (Ecotrin) 81 mg DAILY PO Last administered on 08/20/16 09:25; Start 08/15/16 at 09:00 Atorvastatin Calcium (Lipitor) 40 mg QHS PO Last administered on 08/20/16 20:36 ; Start 08/14/16 at 21:00 Carvedilol (Coreg) 6.25 mg BIDWMEALS PO Last administered on 08/20/16 16:49; Start 08/14/16 at 17:30 Colestipol HCl (Colestid) 1 gm TID PO Last administered on 08/17/16 20:55; Start 08/14/16 at 21:00; Stop 08/18/16 at 10:08; Status DC Metoclopramide HCl (Reglan) 5 mg PRN BID PRN PO NAUSEA; Start 08/14/16 at 16:45 ; Stop 08/16/16 at 10:25; Status DC Sacubitril/ Valsartan (Entresto 24 Mg-26 Mg) 1 tab BID PO Last administered on 08/17/16 09:14; Start 08/14/16 at 21:00; Stop 08/17/16 at 10:16; Status DC Warfarin Sodium (Coumadin) 2.5 mg DAILY16 PO Last administered on 08/14/16 18: 50; Start 08/14/16 at 18:00; Stop 08/15/16 at 14:13; Status DC Warfarin Sodium (Coumadin Per Physician) 1 each PRN DAILY PRN MC SEE COMMENTS; Start 08/14/16 at 17:15; Stop 08/15/16 at 09:54; Status DC Sodium Polystyrene Sulfonate (Kayexalate) 60 gm 1X ONCE PO Last administered on 08/14/16 18:51; Start 08/14/16 at 18:30; Stop 08/14/16 at 18:31; Status DC Warfarin Sodium (Coumadin Per Pharmacy) 1 each PRN DAILY PRN MC SEE COMMENTS Last administered on 08/20/16 14:44; Start 08/15/16 at 10:00 Pantoprazole Sodium 40 mg 40 mg DAILYAC PO Last administered on 08/20/16 09:25 ; Start 08/15/16 at 11:30 Dobutamine HCl/ Dextrose 250 ml @ 0 mls/hr CONT PRN IV ; Start 08/15/16 at 14:00 ; Stop 08/15/16 at 14:53; Status DC Albumin Human (Albuminar) 100 ml @ 100 mls/hr 1X ONCE IV Last administered on 08/15/16 15:25; Start 08/15/16 at 14:00; Stop 08/15/16 at 14:59; Status DC Furosemide 40 mg 40 mg 1X ONCE IVP Last administered on 08/15/16 16:22; Start 08/15/16 at 15:00; Stop 08/15/16 at 15:01; Status DC Albumin Human (Albuminar) 100 ml @ 100 mls/hr 1X ONCE IV Last administered on 08/16/16 08:41; Start 08/16/16 at 09:00; Stop 08/16/16 at 09:59; Status DC Furosemide (Lasix) 40 mg 1X ONCE IVP Last administered on 08/16/16 09:45; Start 08/16/16 at 10:00; Stop 08/16/16 at 10:01; Status DC Warfarin Sodium 4 mg 4 mg 1X WARF ONCE PO Last administered on 08/15/16 16:33 ; Start 08/15/16 at 16:00; Stop 08/15/16 at 16:01; Status DC Dobutamine HCl/ Dextrose 250 ml @ 0 mls/hr CONT PRN PRN IV SEE I/O RECORD Last administered on 08/19/16 08:29; Start 08/15/16 at 14:53 Sodium Bicarbonate 50 meq 50 meq Q2HR IV Last administered on 08/15/16 18:20; Start 08/15/16 at 16:00; Stop 08/15/16 at 18:30; Status DC Magnesium Sulfate/ Dextrose (Magnesium Sulfate PREMIX 2GM) 50 ml @ 25 mls/hr PRN DAILY PRN IV for Mag < 1.7 on am labs; Start 08/15/16 at 15:30 Warfarin Sodium (Coumadin) 4 mg 1X WARF ONCE PO Last administered on 08/16/16 17:28; Start 08/16/16 at 16:00; Stop 08/16/16 at 16:01; Status DC Ondansetron HCl 4 mg 4 mg PRN Q6HRS PRN IV nausea Last administered on 01:27; Start 08/16/16 at 20:30 Ceftriaxone Sodium 1 gm/ Sodium Chloride 50 ml @ 100 mls/hr Q24H IV Last administered on 08/19/16 10:00; Start 08/17/16 at 10:00; Stop 08/19/16 at 12:56; Status DC Sodium Chloride (Iv Sodium Chloride 0.9% 1000ml Bag) 1,000 ml @ 75 mls/hr [id number] IV Last administered on 08/19/16 16:58; Start 08/17/16 at 10:15; Stop at 09:27; Status DC Warfarin Sodium (Coumadin) 5 mg 1X WARF ONCE PO ; Start 08/17/16 at 16:00; Stop 08/17/16 at 16:01; Status DC Heparin Sodium/ Sodium Chloride 1,000 unit 1X ONCE IART Last administered on 11:45; Start 08/18/16 at 11:30; Stop 08/18/16 at 11:31; Status DC Midazolam HCl (Versed) 2 mg 1X ONCE IV Last administered on 08/18/16 11:46; Start 08/18/16 at 11:30; Stop 08/18/16 at 11:31; Status DC Fentanyl Citrate (Fentanyl 2ml Vial) 100 mcg 1X ONCE IV Last administered on 11:47; Start 08/18/16 at 11:30; Stop 08/18/16 at 11:31; Status DC Lidocaine/ Epinephrine 15 ml 15 ml 1X ONCE IJ Last administered on 08/18/16 11 :44; Start 08/18/16 at 11:30; Stop 08/18/16 at 11:31; Status DC Vancomycin HCl 250 ml @ 250 mls/hr 1X ONCE IRR Last administered on 08/18/16 11:45; Start 08/18/16 at 11:30; Stop 08/18/16 at 12:29; Status DC Heparin Sodium (Porcine) (Hep Lock Adult) 500 unit 1X ONCE IV Last administered on 08/18/16 11:46; Start 08/18/16 at 11:30; Stop 08/18/16 at 11:31; Status DC Heparin Sodium (Porcine) (Hep Lock Adult) 500 unit STK-MED ONCE IV ; Start at 09:29; Stop 08/18/16 at 11:42; Status DC Lidocaine/ Epinephrine 20 ml 20 ml STK-MED ONCE .ROUTE ; Start 08/18/16 at 09:29 ; Stop 08/18/16 at 11:42; Status DC Heparin Sodium/ Sodium Chloride 500 ml @ As Directed STK-MED ONCE .ROUTE ; Start 08/18/16 at 09:29; Stop 08/18/16 at 11:42; Status DC Vancomycin HCl 250 ml @ As Directed STK-MED ONCE .ROUTE ; Start 08/18/16 at 09: 29; Stop 08/18/16 at 11:42; Status DC Fentanyl Citrate (Fentanyl 2ml Vial) 100 mcg STK-MED ONCE .ROUTE ; Start at 10:29; Stop 08/18/16 at 11:43; Status DC Midazolam HCl 2 mg 2 mg STK-MED ONCE .ROUTE ; Start 08/18/16 at 10:30; Stop at 11:43; Status DC Iron Sucrose/ Sodium Chloride (Venofer/Iv Sodium Chloride 0.9% 100ml) 110 ml @ 55 mls/hr 3X/WEEK IV Last administered on 08/19/16 14:35; Start 08/19/16 at 09: 00; Stop 08/28/16 at 10:59 Warfarin Sodium (Coumadin) 5 mg 1X WARF ONCE PO Last administered on 08/18/16 17:56; Start 08/18/16 at 16:00; Stop 08/18/16 at 16:01; Status DC Warfarin Sodium (Coumadin) 3 mg 1X WARF ONCE PO ; Start 08/19/16 at 16:00; Stop 08/19/16 at 16:01; Status Cancel Cefpodoxime Proxetil (Vantin) 100 mg BID PO Last administered on 08/20/16 20:36 ; Start 08/19/16 at 21:00 Warfarin Sodium (Coumadin) 2.5 mg 1X WARF ONCE PO Last administered on 16:59; Start 08/19/16 at 16:00; Stop 08/19/16 at 16:01; Status DC Senna/Docusate Sodium 1 tab 1 tab PRN BID PRN PO CONSTIPATION Last administered on 08/20/16 14:18; Start 08/19/16 at 13:30; Stop 08/20/16 at 14:43; Status DC Sodium Chloride 250 ml @ 0 mls/hr 1X ONCE IV Last administered on 08/19/16 14: 33; Start 08/19/16 at 13:45; Stop 08/19/16 at 13:53; Status DC Sodium Chloride (Iv Sodium Chloride 0.9% 500ml Bag) 500 ml @ 0 mls/hr 1X ONCE IV Last administered on 08/19/16 16:58; Start 08/19/16 at 16:00; Stop 08/19/16 at 16:01; Status DC Senna/Docusate Sodium (Senna Plus) 1 tab PRN BID PRN PO CONSTIPATION; Start 08/20/16 at 10:00 Bisacodyl (Dulcolax Supp) 10 mg 1X ONCE VA ; Start 08/20/16 at 11:00; Stop at 11:00; Status DC Bisacodyl (Dulcolax Supp) 10 mg 1X ONCE VA Last administered on 08/20/16 16:49 ; Start 08/20/16 at 14:30; Stop 08/20/16 at 14:31; Status DC Warfarin Sodium (Coumadin) 2 mg 1X WARF ONCE PO Last administered on 08/20/16t 16:48; Start 08/20/16 at 16:00; Stop 08/20/16 at 16:01; Status DC Active Scripts Active Entresto 24 mg-26 mg Tablet (Sacubitril/Valsartan) 1 Each Tablet 1 Tab PO BID Coumadin (Warfarin Sodium) 2.5 Mg Tablet 2.5 Mg PO DAILY16 Reported Reglan (Metoclopramide Hcl) 10 Mg Tablet 5 Mg PO PRN BID PRN Atorvastatin Calcium 40 Mg Tablet 1 Tab PO DAILY Colestid (Colestipol Hcl) 1 Gm Tablet 1 Gm PO TID Pacerone (Amiodarone Hcl) 200 Mg Tablet 200 Mg PO DAILY Lasix (Furosemide) 80 Mg Tablet 1 Tab PO BID Gabapentin 100 Mg Capsule 1 Cap PO TID Aspir 81 (Aspirin) 81 Mg Tablet.dr 1 Tab PO DAILY Coreg (Carvedilol) 6.25 Mg Tablet 1 Tab PO BID K-Tab ER (Potassium Chloride) 20 Meq Tablet.er 20 Meq PO BID Vitals/I & O Vital Sign - Last 24 Hours 08/20/16 08/20/16 08/20/16 08/20/16 11:11 12:05 12:06 14:44 Temp 98.1 98.0 98.1 98.0 Pulse 62 62 62 63 Resp 18 18 B/P 96/52 96/52 96/52 101/58 Pulse Ox 97 93 O2 Delivery Room Air Room Air 08/20/16 08/20/16 08/20/16 08/20/16 16:49 19:25 20:30 23:30 Temp 97.7 97.4 97.7 97.4 Pulse 63 65 59 Resp 18 18 B/P 101/58 95/56 82/40 Pulse Ox 98 98 O2 Delivery Room Air Nasal Cannula O2 Flow Rate 1.0 08/21/16 08/21/16 08/21/16 03:30 07:00 08:33 Temp 98.4 98.2 98.4 98.2 Pulse 60 62 Resp 16 19 B/P 103/55 104/58 Pulse Ox 97 92 O2 Delivery Room Air Room Air Nasal Cannula O2 Flow Rate 1.0 Intake and Output 08/20/16 08/20/16 08/21/16 15:00 23:00 07:00 Intake Total 1071 ml 565.15 ml 360 ml Output Total 500 ml 600 ml Balance 1071 ml 65.15 ml -240 ml MADDIE AMBROSE MD Aug 21, 2016 09:42
[2016-08-21] MEDS: AMIODARONE HCL 200 MG TABLET. PO SCH (10:27)
[2016-08-21] MEDS: ASPIRIN ENTERIC COATED 81 MG TABLET.DR. PO SCH (10:27)
[2016-08-21] MEDS: PANTOPRAZOLE 40 MG TABLET.DR. PO SCH (10:27)
[2016-08-21] MEDS: CEFPODOXIME PROXETIL 100 MG TABLET. PO SCH ×2 (10:27→20:49)
[2016-08-21] MEDS: CARVEDILOL 6.25 MG TABLET. PO SCH ×2 (10:27→16:17)
[2016-08-21] MEDS: IRON SUCROSE COMPLEX 200 MG in IV NORMAL SALINE 100ML 100 ML IV SCH (10:28)
[2016-08-21 11:30] VITALS: BP 103/56
--- NOTE | 2016-08-21 12:03 | PDOC ---
PROGRESS NOTES Subjective Subjective Pt reports she had 1 episode of emesis yesterday. Pt reports still feeling nauseous. Pt denies having a BM yesterday. Pt reports still feeling bloated. Pt denies any abdominal pain. Per nurse, pt received 2 doses of senna and a suppository to help alleviate the constipation. Reports the pt is able to pass gas and has the urge to go but has not had a BM yet. Objective Objective Vital Signs Date Time Temp Pulse Resp B/P Pulse Ox O2 Delivery O2 Flow Rate FiO2 08/21/16 11:30 98.0 68 20 103/56 91 Room Air 98.0 08/21/16 08:33 1.0 Intake and Output 08/21/16 07:00 Intake Total 1996.15 ml Output Total 1100 ml Balance 896.15 ml Intake Oral 1040 ml IV Total 956.15 ml Output Urine Total 1100 ml Physical Exam Abdomen: Soft, No tenderness Heart: Regular rate, Normal S1, Normal S2 Extremities: No clubbing, No edema General: Alert, Oriented X3, Cooperative HEENT: Atraumatic, PERRLA Lungs: Clear to auscultation Neck: Supple, Other (Right IJ cath placed. dressing is c/d/i) Assessment Assessment Problems Medical Problems: (1) Acute on chronic renal failure Status: Acute - Acute on chronic systolic CHF ICM EF 10% AICD - New onset of constipation. Now BM since 08/15/16 - ARF with CKD II, ATN, SONA - HTN - Severe weakness and debility - moderate pulmonary HTN - mild to mod MR - HLD - DM II Plan Plan of Care - Constipation- - Order 2 oz of mineral oil to be given now - Order 2 more ounces to be given 2 hours after 1st dose - Order a fleet enema to be done 2-3 hours after last mineral oil dose - Continue on current dobutamine drip - Continue to monitor her - SW has been able to set up for her dobutamine infusions once she is discharged. Thank you for your consultation. Comment Review of Relevant I have reviewed the following items marquise (where applicable) has been applied. Labs Laboratory Tests Test 08/19/16 12:29 08/19/16 17:49 08/19/16 19:42 08/20/16 03:45 Glucose (Fingerstick) 134mg/dL (70-99) 104mg/dL (70-99) 104mg/dL (70-99) White Blood Count 6.1x10^3/uL (4.0-11.0) Red Blood Count 3.78x10^6/uL (4.30-5.70) Hemoglobin 9.5g/dL (13.0-17.5) Hematocrit 30.2% (39.0-53.0) Mean Corpuscular Volume 80fL (79-100) Mean Corpuscular Hemoglobin 25pg (25-35) Mean Corpuscular Hemoglobin Concent 32g/dL (31-37) Red Cell Distribution Width 19.7% (11.5-14.5) Platelet Count 100x10^3/uL (140-400) Neutrophils (%) (Auto) 78% (31-73) Lymphocytes (%) (Auto) 11% (24-48) Monocytes (%) (Auto) 10% (0-9) Eosinophils (%) (Auto) 1% (0-3) Basophils (%) (Auto) 1% (0-3) Neutrophils # (Auto) 4.7x10^3uL (1.8-7.7) Lymphocytes # (Auto) 0.6x10^3/uL (1.0-4.8) Monocytes # (Auto) 0.6x10^3/uL (0.0-1.1) Eosinophils # (Auto) 0.0x10^3/uL (0.0-0.7) Basophils # (Auto) 0.0x10^3/uL (0.0-0.2) Prothrombin Time 28.8SEC (11.7-14.0) Prothromb Time International Ratio 2.9 (0.8-1.1) Sodium Level 135mmol/L (136-145) Potassium Level 4.1mmol/L (3.5-5.1) Chloride Level 104mmol/L (98-107) Carbon Dioxide Level 20mmol/L (21-32) Anion Gap 11 (6-14) Blood Urea Nitrogen 104mg/dL (8-26) Creatinine 3.0mg/dL (0.7-1.3) Estimated GFR (Cockcroft-Gault) 24.9 Glucose Level 105mg/dL (70-99) Calcium Level 8.0mg/dL (8.5-10.1) Phosphorus Level 5.0mg/dL (2.6-4.7) Albumin 2.7g/dL (3.4-5.0) Test 08/20/16 07:40 08/20/16 10:58 08/20/16 16:23 08/20/16 20:35 Glucose (Fingerstick) 92mg/dL (70-99) 111mg/dL (70-99) 102mg/dL (70-99) 99mg/dL (70-99) Test 08/21/16 06:20 08/21/16 07:41 08/21/16 11:19 White Blood Count 6.0x10^3/uL (4.0-11.0) Red Blood Count 3.61x10^6/uL (4.30-5.70) Hemoglobin 9.0g/dL (13.0-17.5) Hematocrit 28.9% (39.0-53.0) Mean Corpuscular Volume 80fL (79-100) Mean Corpuscular Hemoglobin 25pg (25-35) Mean Corpuscular Hemoglobin Concent 31g/dL (31-37) Red Cell Distribution Width 19.7% (11.5-14.5) Platelet Count 100x10^3/uL (140-400) Neutrophils (%) (Auto) 79% (31-73) Lymphocytes (%) (Auto) 11% (24-48) Monocytes (%) (Auto) 9% (0-9) Eosinophils (%) (Auto) 1% (0-3) Basophils (%) (Auto) 1% (0-3) Neutrophils # (Auto) 4.8x10^3uL (1.8-7.7) Lymphocytes # (Auto) 0.6x10^3/uL (1.0-4.8) Monocytes # (Auto) 0.6x10^3/uL (0.0-1.1) Eosinophils # (Auto) 0.0x10^3/uL (0.0-0.7) Basophils # (Auto) 0.0x10^3/uL (0.0-0.2) Prothrombin Time 21.6SEC (11.7-14.0) Prothromb Time International Ratio 2.0 (0.8-1.1) Sodium Level 132mmol/L (136-145) Potassium Level 3.7mmol/L (3.5-5.1) Chloride Level 101mmol/L (98-107) Carbon Dioxide Level 18mmol/L (21-32) Anion Gap 13 (6-14) Blood Urea Nitrogen 101mg/dL (8-26) Creatinine 2.9mg/dL (0.7-1.3) Estimated GFR (Cockcroft-Gault) 25.9 Glucose Level 220mg/dL (70-99) Calcium Level 8.1mg/dL (8.5-10.1) Phosphorus Level 4.9mg/dL (2.6-4.7) Albumin 2.5g/dL (3.4-5.0) Glucose (Fingerstick) 98mg/dL (70-99) 107mg/dL (70-99) Laboratory Tests Test 08/20/16 16:23 08/20/16 20:35 08/21/16 06:20 08/21/16 07:41 Glucose (Fingerstick) 102mg/dL (70-99) 99mg/dL (70-99) 98mg/dL (70-99) White Blood Count 6.0x10^3/uL (4.0-11.0) Red Blood Count 3.61x10^6/uL (4.30-5.70) Hemoglobin 9.0g/dL (13.0-17.5) Hematocrit 28.9% (39.0-53.0) Mean Corpuscular Volume 80fL (79-100) Mean Corpuscular Hemoglobin 25pg (25-35) Mean Corpuscular Hemoglobin Concent 31g/dL (31-37) Red Cell Distribution Width 19.7% (11.5-14.5) Platelet Count 100x10^3/uL (140-400) Neutrophils (%) (Auto) 79% (31-73) Lymphocytes (%) (Auto) 11% (24-48) Monocytes (%) (Auto) 9% (0-9) Eosinophils (%) (Auto) 1% (0-3) Basophils (%) (Auto) 1% (0-3) Neutrophils # (Auto) 4.8x10^3uL (1.8-7.7) Lymphocytes # (Auto) 0.6x10^3/uL (1.0-4.8) Monocytes # (Auto) 0.6x10^3/uL (0.0-1.1) Eosinophils # (Auto) 0.0x10^3/uL (0.0-0.7) Basophils # (Auto) 0.0x10^3/uL (0.0-0.2) Prothrombin Time 21.6SEC (11.7-14.0) Prothromb Time International Ratio 2.0 (0.8-1.1) Sodium Level 132mmol/L (136-145) Potassium Level 3.7mmol/L (3.5-5.1) Chloride Level 101mmol/L (98-107) Carbon Dioxide Level 18mmol/L (21-32) Anion Gap 13 (6-14) Blood Urea Nitrogen 101mg/dL (8-26) Creatinine 2.9mg/dL (0.7-1.3) Estimated GFR (Cockcroft-Gault) 25.9 Glucose Level 220mg/dL (70-99) Calcium Level 8.1mg/dL (8.5-10.1) Phosphorus Level 4.9mg/dL (2.6-4.7) Albumin 2.5g/dL (3.4-5.0) Test 08/21/16 11:19 Glucose (Fingerstick) 107mg/dL (70-99) Microbiology 08/15/16 Urine Culture - Final, Complete 08/15/16 Urine Culture Result 1 (JV) - Final, Complete 08/15/16 Urine Culture Result 2 (JV) - Final, Complete 08/15/16 Antimicrobic Susceptibility - Final, Complete Medications Current Medications Insulin Aspart (Novolog) 0-5 UNITS TIDWMEALS SQ ; Start 08/14/16 at 17:30 Dextrose 12.5 gm 12.5 gm PRN Q15MIN PRN IV SEE COMMENTS; Start 08/14/16 at 16: 45 Sodium Chloride (Iv Sodium Chloride 0.9% 1000ml Bag) 1,000 ml @ 100 mls/hr Q10H IV Last administered on 08/14/16t 18:53; Start 08/14/16 at 17:30; Stop 08/15/16 at 03:29; Status DC Amiodarone HCl (Cordarone) 200 mg DAILY PO Last administered on 08/21/16 10:27 ; Start 08/15/16 at 09:00 Aspirin (Ecotrin) 81 mg DAILY PO Last administered on 08/21/16 10:27; Start 08/15/16 at 09:00 Atorvastatin Calcium (Lipitor) 40 mg QHS PO Last administered on 08/20/16 20:36 ; Start 08/14/16 at 21:00 Carvedilol (Coreg) 6.25 mg BIDWMEALS PO Last administered on 08/21/16 10:27; Start 08/14/16 at 17:30 Colestipol HCl (Colestid) 1 gm TID PO Last administered on 08/17/16 20:55; Start 08/14/16 at 21:00; Stop 08/18/16 at 10:08; Status DC Metoclopramide HCl (Reglan) 5 mg PRN BID PRN PO NAUSEA; Start 08/14/16 at 16:45 ; Stop 08/16/16 at 10:25; Status DC Sacubitril/ Valsartan (Entresto 24 Mg-26 Mg) 1 tab BID PO Last administered on 08/17/16 09:14; Start 08/14/16 at 21:00; Stop 08/17/16 at 10:16; Status DC Warfarin Sodium (Coumadin) 2.5 mg DAILY16 PO Last administered on 08/14/16 18: 50; Start 08/14/16 at 18:00; Stop 08/15/16 at 14:13; Status DC Warfarin Sodium (Coumadin Per Physician) 1 each PRN DAILY PRN MC SEE COMMENTS; Start 08/14/16 at 17:15; Stop 08/15/16 at 09:54; Status DC Sodium Polystyrene Sulfonate (Kayexalate) 60 gm 1X ONCE PO Last administered on 08/14/16 18:51; Start 08/14/16 at 18:30; Stop 08/14/16 at 18:31; Status DC Warfarin Sodium (Coumadin Per Pharmacy) 1 each PRN DAILY PRN MC SEE COMMENTS Last administered on 08/20/16 14:44; Start 08/15/16 at 10:00 Pantoprazole Sodium 40 mg 40 mg DAILYAC PO Last administered on 08/21/16 10:27 ; Start 08/15/16 at 11:30 Dobutamine HCl/ Dextrose 250 ml @ 0 mls/hr CONT PRN IV ; Start 08/15/16 at 14:00 ; Stop 08/15/16 at 14:53; Status DC Albumin Human (Albuminar) 100 ml @ 100 mls/hr 1X ONCE IV Last administered on 08/15/16 15:25; Start 08/15/16 at 14:00; Stop 08/15/16 at 14:59; Status DC Furosemide 40 mg 40 mg 1X ONCE IVP Last administered on 08/15/16 16:22; Start 08/15/16 at 15:00; Stop 08/15/16 at 15:01; Status DC Albumin Human (Albuminar) 100 ml @ 100 mls/hr 1X ONCE IV Last administered on 08/16/16 08:41; Start 08/16/16 at 09:00; Stop 08/16/16 at 09:59; Status DC Furosemide (Lasix) 40 mg 1X ONCE IVP Last administered on 08/16/16 09:45; Start 08/16/16 at 10:00; Stop 08/16/16 at 10:01; Status DC Warfarin Sodium 4 mg 4 mg 1X WARF ONCE PO Last administered on 08/15/16 16:33 ; Start 08/15/16 at 16:00; Stop 08/15/16 at 16:01; Status DC Dobutamine HCl/ Dextrose 250 ml @ 0 mls/hr CONT PRN PRN IV SEE I/O RECORD Last administered on 08/19/16 08:29; Start 08/15/16 at 14:53 Sodium Bicarbonate 50 meq 50 meq Q2HR IV Last administered on 08/15/16 18:20; Start 08/15/16 at 16:00; Stop 08/15/16 at 18:30; Status DC Magnesium Sulfate/ Dextrose (Magnesium Sulfate PREMIX 2GM) 50 ml @ 25 mls/hr PRN DAILY PRN IV for Mag < 1.7 on am labs; Start 08/15/16 at 15:30 Warfarin Sodium (Coumadin) 4 mg 1X WARF ONCE PO Last administered on 08/16/16 17:28; Start 08/16/16 at 16:00; Stop 08/16/16 at 16:01; Status DC Ondansetron HCl 4 mg 4 mg PRN Q6HRS PRN IV nausea Last administered on 10:40; Start 08/16/16 at 20:30 Ceftriaxone Sodium 1 gm/ Sodium Chloride 50 ml @ 100 mls/hr Q24H IV Last administered on 08/19/16 10:00; Start 08/17/16 at 10:00; Stop 08/19/16 at 12:56; Status DC Sodium Chloride (Iv Sodium Chloride 0.9% 1000ml Bag) 1,000 ml @ 75 mls/hr [id number] IV Last administered on 08/19/16 16:58; Start 08/17/16 at 10:15; Stop at 09:27; Status DC Warfarin Sodium (Coumadin) 5 mg 1X WARF ONCE PO ; Start 08/17/16 at 16:00; Stop 08/17/16 at 16:01; Status DC Heparin Sodium/ Sodium Chloride 1,000 unit 1X ONCE IART Last administered on 11:45; Start 08/18/16 at 11:30; Stop 08/18/16 at 11:31; Status DC Midazolam HCl (Versed) 2 mg 1X ONCE IV Last administered on 08/18/16 11:46; Start 08/18/16 at 11:30; Stop 08/18/16 at 11:31; Status DC Fentanyl Citrate (Fentanyl 2ml Vial) 100 mcg 1X ONCE IV Last administered on 11:47; Start 08/18/16 at 11:30; Stop 08/18/16 at 11:31; Status DC Lidocaine/ Epinephrine 15 ml 15 ml 1X ONCE IJ Last administered on 08/18/16 11 :44; Start 08/18/16 at 11:30; Stop 08/18/16 at 11:31; Status DC Vancomycin HCl 250 ml @ 250 mls/hr 1X ONCE IRR Last administered on 08/18/16 11:45; Start 08/18/16 at 11:30; Stop 08/18/16 at 12:29; Status DC Heparin Sodium (Porcine) (Hep Lock Adult) 500 unit 1X ONCE IV Last administered on 08/18/16 11:46; Start 08/18/16 at 11:30; Stop 08/18/16 at 11:31; Status DC Heparin Sodium (Porcine) (Hep Lock Adult) 500 unit STK-MED ONCE IV ; Start at 09:29; Stop 08/18/16 at 11:42; Status DC Lidocaine/ Epinephrine 20 ml 20 ml STK-MED ONCE .ROUTE ; Start 08/18/16 at 09:29 ; Stop 08/18/16 at 11:42; Status DC Heparin Sodium/ Sodium Chloride 500 ml @ As Directed STK-MED ONCE .ROUTE ; Start 08/18/16 at 09:29; Stop 08/18/16 at 11:42; Status DC Vancomycin HCl 250 ml @ As Directed STK-MED ONCE .ROUTE ; Start 08/18/16 at 09: 29; Stop 08/18/16 at 11:42; Status DC Fentanyl Citrate (Fentanyl 2ml Vial) 100 mcg STK-MED ONCE .ROUTE ; Start at 10:29; Stop 08/18/16 at 11:43; Status DC Midazolam HCl 2 mg 2 mg STK-MED ONCE .ROUTE ; Start 08/18/16 at 10:30; Stop at 11:43; Status DC Iron Sucrose/ Sodium Chloride (Venofer/Iv Sodium Chloride 0.9% 100ml) 110 ml @ 55 mls/hr 3X/WEEK IV Last administered on 08/21/16 10:28; Start 08/19/16 at 09: 00; Stop 08/28/16 at 10:59 Warfarin Sodium (Coumadin) 5 mg 1X WARF ONCE PO Last administered on 08/18/16 17:56; Start 08/18/16 at 16:00; Stop 08/18/16 at 16:01; Status DC Warfarin Sodium (Coumadin) 3 mg 1X WARF ONCE PO ; Start 08/19/16 at 16:00; Stop 08/19/16 at 16:01; Status Cancel Cefpodoxime Proxetil (Vantin) 100 mg BID PO Last administered on 08/21/16 10:27 ; Start 08/19/16 at 21:00 Warfarin Sodium (Coumadin) 2.5 mg 1X WARF ONCE PO Last administered on 16:59; Start 08/19/16 at 16:00; Stop 08/19/16 at 16:01; Status DC Senna/Docusate Sodium 1 tab 1 tab PRN BID PRN PO CONSTIPATION Last administered on 08/20/16 14:18; Start 08/19/16 at 13:30; Stop 08/20/16 at 14:43; Status DC Sodium Chloride 250 ml @ 0 mls/hr 1X ONCE IV Last administered on 08/19/16 14: 33; Start 08/19/16 at 13:45; Stop 08/19/16 at 13:53; Status DC Sodium Chloride (Iv Sodium Chloride 0.9% 500ml Bag) 500 ml @ 0 mls/hr 1X ONCE IV Last administered on 08/19/16 16:58; Start 08/19/16 at 16:00; Stop 08/19/16 at 16:01; Status DC Senna/Docusate Sodium (Senna Plus) 1 tab PRN BID PRN PO CONSTIPATION; Start 08/20/16 at 10:00 Bisacodyl (Dulcolax Supp) 10 mg 1X ONCE MN ; Start 08/20/16 at 11:00; Stop at 11:00; Status DC Bisacodyl (Dulcolax Supp) 10 mg 1X ONCE MN Last administered on 08/20/16 16:49 ; Start 08/20/16 at 14:30; Stop 08/20/16 at 14:31; Status DC Warfarin Sodium (Coumadin) 2 mg 1X WARF ONCE PO Last administered on 08/20/16 16:48; Start 08/20/16 at 16:00; Stop 08/20/16 at 16:01; Status DC Mineral Oil (Fleet Mineral Oil) 133 ml 1X ONCE MN ; Start 08/21/16 at 20:00; Stop 08/21/16 at 20:01 Non-Formulary Medication 1 ea Q4H PO ; Start 08/21/16 at 12:00; Stop 08/21/16 at 16:01 Active Scripts Active Entresto 24 mg-26 mg Tablet (Sacubitril/Valsartan) 1 Each Tablet 1 Tab PO BID Coumadin (Warfarin Sodium) 2.5 Mg Tablet 2.5 Mg PO DAILY16 Reported Reglan (Metoclopramide Hcl) 10 Mg Tablet 5 Mg PO PRN BID PRN Atorvastatin Calcium 40 Mg Tablet 1 Tab PO DAILY Colestid (Colestipol Hcl) 1 Gm Tablet 1 Gm PO TID Pacerone (Amiodarone Hcl) 200 Mg Tablet 200 Mg PO DAILY Lasix (Furosemide) 80 Mg Tablet 1 Tab PO BID Gabapentin 100 Mg Capsule 1 Cap PO TID Aspir 81 (Aspirin) 81 Mg Tablet. 1 Tab PO DAILY Coreg (Carvedilol) 6.25 Mg Tablet 1 Tab PO BID K-Tab ER (Potassium Chloride) 20 Meq Tablet.er 20 Meq PO BID Vitals/I & O Vital Sign - Last 24 Hours 08/20/16 08/20/16 08/20/16 08/20/16 12:05 12:06 14:44 16:49 Temp 98.0 98.0 Pulse 62 62 63 63 Resp 18 B/P 96/52 96/52 101/58 101/58 Pulse Ox 93 O2 Delivery Room Air 08/20/16 08/20/16 08/20/16 08/21/16 19:25 20:30 23:30 03:30 Temp 97.7 97.4 98.4 97.7 97.4 98.4 Pulse 65 59 60 Resp 18 18 16 B/P 95/56 82/40 103/55 Pulse Ox 98 98 97 O2 Delivery Room Air Nasal Cannula Room Air O2 Flow Rate 1.0 08/21/16 08/21/16 08/21/16 08/21/16 07:00 08:33 10:27 10:27 Temp 98.2 98.2 Pulse 62 62 62 Resp 19 B/P 104/58 104/58 104/58 Pulse Ox 92 O2 Delivery Room Air Nasal Cannula O2 Flow Rate 1.0 08/21/16 11:30 Temp 98.0 98.0 Pulse 68 Resp 20 B/P 103/56 Pulse Ox 91 O2 Delivery Room Air Intake and Output 08/20/16 08/20/16 08/21/16 15:00 23:00 07:00 Intake Total 1071 ml 565.15 ml 360 ml Output Total 500 ml 600 ml Balance 1071 ml 65.15 ml -240 ml HEATHER CHERRY MD Aug 21, 2016 12:03
[2016-08-21] MEDS: NON FORMULARY ITEM PO SCH ×2 (12:43→16:18)
--- NOTE | 2016-08-21 13:37 | PDOC ---
SUBJECTIVE ROS SONA/ ?ATN in ES CHF doing and feeling oK overall CVS: no Orthopnea, no CP RESP: no SOB, no SEGOVIA GI: + Nausea, + Vomiting x 1 yest : no Dysuria, no Urgency OBJECTIVE Vital Signs Vital Signs Date Time Temp Pulse Resp B/P Pulse Ox O2 Delivery O2 Flow Rate FiO2 08/21/16 11:30 98.0 68 20 103/56 91 Room Air 98.0 08/21/16 08:33 1.0 I & 0 Intake and Output 08/21/16 07:00 Intake Total 1996.15 ml Output Total 1100 ml Balance 896.15 ml Intake Oral 1040 ml IV Total 956.15 ml Output Urine Total 1100 ml PHYSICAL EXAM Physical Exam General Appearance: Awake Alert Oriented x 3 In no Distress Eyes: VIsion Unchanged Conjunctiva Normal EN: No EN Drainage Mucous Memb. moist Neck: no JVD + JVP Supple no Thyromegaly CVS: S1 S2 + Murmur No Gallop No Rub tr Edema Resp: no Rales no Rhonchi no Acc. 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 Element of ATN cannot be ruled out. Current FLuid and E-lyte status does not necessitate emergent need for Dialysis. Will re-evaluate for Dialysis in am; Not sure that she will do great on HD either but she wants us to do everything to keep her going. Watch off of entresto UO is picking up after cervantes was replaced - Bl Scan revealed significant Urinary retention for wchihc she has been seen by Dr Butterfield. Mild Met Acidosis - IV NaHCo3 x 2 amps CKD III with Creat 1.5ish or worse (after CHF) is probably her baseline (based on previous trend) - not sure taht she can get back to that level Anemia:(Fe def) IV Iron, may need Epogen Transfuse as needed. HTN: Current BP meds reviewed. BiV Dil Cmyoaphty - End stage dilated cardiomyopathy - felt to Need Dobutamine gtt as OP Discussed Plan of Care and prognosis etc. at length with pt. Prognosis is highly guarded; Dw Dr Garcia COMMENT/RELEVANT DATA Meds Current Medications Medications (Trade) Dose Ordered Sig/Fernando Start Time Stop Time Status Last Admin Dose Admin Albumin Human (Albuminar) 100 ml @ 100 mls/hr 1X ONCE 08/16/16 09:00 08/16/16 09:59 DC 08/16/16 08:41 100 MLS/HR Amiodarone HCl (Cordarone) 200 mg DAILY 08/15/16 09:00 08/21/16 10:27 200 MG Aspirin (Ecotrin) 81 mg DAILY 08/15/16 09:00 08/21/16 10:27 81 MG Atorvastatin Calcium (Lipitor) 40 mg QHS 08/14/16 21:00 08/20/16 20:36 40 MG Bisacodyl (Dulcolax Supp) 10 mg 1X ONCE 08/20/16 14:30 08/20/16 14:31 DC 08/20/16 16:49 10 MG Carvedilol (Coreg) 6.25 mg BIDWMEALS 08/14/16 17:30 08/21/16 10:27 6.25 MG Cefpodoxime Proxetil (Vantin) 100 mg BID 08/19/16 21:00 08/21/16 10:27 100 MG Ceftriaxone Sodium 1 gm/ Sodium Chloride 50 ml @ 100 mls/hr Q24H 08/17/16 10:00 08/19/16 12:56 DC 08/19/16 10:00 100 MLS/HR Colestipol HCl (Colestid) 1 gm TID 08/14/16 21:00 08/18/16 10:08 DC 08/17/16 20:55 1 GM Dextrose (Dextrose 50%-Water Syringe) 12.5 gm PRN Q15MIN PRN 08/14/16 16:45 Dobutamine HCl/ Dextrose 250 ml @ 0 mls/hr CONT PRN PRN 08/15/16 14:53 08/19/16 08:29 10.7 MLS/HR Fentanyl Citrate (Fentanyl 2ml Vial) 100 mcg STK-MED ONCE 08/18/16 10:29 08/18/16 11:43 DC Furosemide (Lasix) 40 mg 1X ONCE 08/16/16 10:00 08/16/16 10:01 DC 08/16/16 09:45 40 MG Furosemide 40 mg 40 mg 1X ONCE 08/15/16 15:00 08/15/16 15:01 DC 08/15/16 16:22 40 MG Heparin Sodium (Porcine) (Hep Lock Adult) 500 unit STK-MED ONCE 08/18/16 09:29 08/18/16 11:42 DC Heparin Sodium/ Sodium Chloride 500 ml @ As Directed STK-MED ONCE 08/18/16 09:29 08/18/16 11:42 DC Insulin Aspart (Novolog) 0-5 UNITS TIDWMEALS 08/14/16 17:30 Iron Sucrose/ Sodium Chloride (Venofer/Iv Sodium Chloride 0.9% 100ml) 110 ml @ 55 mls/hr 3X/WEEK 08/19/16 09:00 08/28/16 10:59 08/21/16 10:28 55 MLS/HR Lidocaine/ Epinephrine (Xylocaine 2%-Epi 1:100,000) 15 ml 1X ONCE 08/18/16 11:30 08/18/16 11:31 DC 08/18/16 11:44 15 ML Lidocaine/ Epinephrine 20 ml 20 ml STK-MED ONCE 08/18/16 09:29 08/18/16 11:42 DC Magnesium Sulfate/ Dextrose (Magnesium Sulfate PREMIX 2GM) 50 ml @ 25 mls/hr PRN DAILY PRN 08/15/16 15:30 Metoclopramide HCl (Reglan) 5 mg PRN BID PRN 08/14/16 16:45 08/16/16 10:25 DC Midazolam HCl (Versed) 2 mg 1X ONCE 08/18/16 11:30 08/18/16 11:31 DC 08/18/16 11:46 2 MG Midazolam HCl 2 mg 2 mg STK-MED ONCE 08/18/16 10:30 08/18/16 11:43 DC Mineral Oil (Fleet Mineral Oil) 133 ml 1X ONCE 08/21/16 20:00 08/21/16 20:01 Non-Formulary Medication 1 ea Q4H 08/21/16 12:00 08/21/16 16:01 08/21/16 12:43 1 EA Ondansetron HCl 4 mg 4 mg PRN Q6HRS PRN 08/16/16 20:30 08/21/16 10:40 4 MG Pantoprazole Sodium (Protonix) 40 mg DAILYAC 08/15/16 11:30 08/21/16 10:27 40 MG Sacubitril/ Valsartan (Entresto 24 Mg-26 Mg) 1 tab BID 08/14/16 21:00 08/17/16 10:16 DC 08/17/16 09:14 1 TAB Senna/Docusate Sodium (Senna Plus) 1 tab PRN BID PRN 08/20/16 10:00 Senna/Docusate Sodium 1 tab 1 tab PRN BID PRN 08/19/16 13:30 08/20/16 14:43 DC 08/20/16 14:18 1 TAB Sodium Bicarbonate 50 meq 50 meq Q2HR 08/15/16 16:00 08/15/16 18:30 DC 08/15/16 18:20 50 MEQ Sodium Polystyrene Sulfonate (Kayexalate) 60 gm 1X ONCE 08/14/16 18:30 08/14/16 18:31 DC 08/14/16 18:51 60 GM Sodium Chloride (Iv Sodium Chloride 0.9% 500ml Bag) 500 ml @ 0 mls/hr 1X ONCE 08/19/16 16:00 08/19/16 16:01 DC 08/19/16 16:58 999 MLS/HR Sodium Chloride (Iv Sodium Chloride 0.9% 1000ml Bag) 1,000 ml @ 75 mls/hr [id number] 08/17/16 10:15 08/20/16 09:27 DC 08/19/16 16:58 75 MLS/HR Vancomycin HCl 250 ml @ As Directed STK-MED ONCE 08/18/16 09:29 08/18/16 11:42 DC Warfarin Sodium (Coumadin Per Pharmacy) 1 each PRN DAILY PRN 08/15/16 10:00 08/20/16 14:44 1 EACH Warfarin Sodium (Coumadin Per Physician) 1 each PRN DAILY PRN 08/14/16 17:15 08/15/16 09:54 DC Warfarin Sodium (Coumadin) 2 mg 1X WARF ONCE 08/20/16 16:00 08/20/16 16:01 DC 08/20/16 16:48 2 MG Warfarin Sodium 4 mg 4 mg 1X WARF ONCE 08/15/16 16:00 08/15/16 16:01 DC 08/15/16 16:33 4 MG Lab Laboratory Tests Test 08/20/16 16:23 08/20/16 20:35 08/21/16 06:20 08/21/16 07:41 Glucose (Fingerstick) 102mg/dL (70-99) 99mg/dL (70-99) 98mg/dL (70-99) White Blood Count 6.0x10^3/uL (4.0-11.0) Red Blood Count 3.61x10^6/uL (4.30-5.70) Hemoglobin 9.0g/dL (13.0-17.5) Hematocrit 28.9% (39.0-53.0) Mean Corpuscular Volume 80fL (79-100) Mean Corpuscular Hemoglobin 25pg (25-35) Mean Corpuscular Hemoglobin Concent 31g/dL (31-37) Red Cell Distribution Width 19.7% (11.5-14.5) Platelet Count 100x10^3/uL (140-400) Neutrophils (%) (Auto) 79% (31-73) Lymphocytes (%) (Auto) 11% (24-48) Monocytes (%) (Auto) 9% (0-9) Eosinophils (%) (Auto) 1% (0-3) Basophils (%) (Auto) 1% (0-3) Neutrophils # (Auto) 4.8x10^3uL (1.8-7.7) Lymphocytes # (Auto) 0.6x10^3/uL (1.0-4.8) Monocytes # (Auto) 0.6x10^3/uL (0.0-1.1) Eosinophils # (Auto) 0.0x10^3/uL (0.0-0.7) Basophils # (Auto) 0.0x10^3/uL (0.0-0.2) Prothrombin Time 21.6SEC (11.7-14.0) Prothromb Time International Ratio 2.0 (0.8-1.1) Sodium Level 132mmol/L (136-145) Potassium Level 3.7mmol/L (3.5-5.1) Chloride Level 101mmol/L (98-107) Carbon Dioxide Level 18mmol/L (21-32) Anion Gap 13 (6-14) Blood Urea Nitrogen 101mg/dL (8-26) Creatinine 2.9mg/dL (0.7-1.3) Estimated GFR (Cockcroft-Gault) 25.9 Glucose Level 220mg/dL (70-99) Calcium Level 8.1mg/dL (8.5-10.1) Phosphorus Level 4.9mg/dL (2.6-4.7) Albumin 2.5g/dL (3.4-5.0) Test 08/21/16 11:19 Glucose (Fingerstick) 107mg/dL (70-99) ALLI SELBY MD Aug 21, 2016 13:37
[2016-08-21] MEDS: SODIUM BICARB ADULT 8.4% 50 MEQ/50 ML DISP.SYRIN. IV SCH ×2 (14:47→20:16)
[2016-08-21 14:56] VITALS: BP 116/58
--- NOTE | 2016-08-21 15:50 | PDOC ---
PROGRESS NOTES Subjective Subjective no improvement in kidney function Objective Objective Vital Signs Date Time Temp Pulse Resp B/P Pulse Ox O2 Delivery O2 Flow Rate FiO2 08/21/16 14:56 98.5 63 18 116/58 90 Room Air 98.5 08/21/16 08:33 1.0 Intake and Output 08/21/16 07:00 Intake Total 1996.15 ml Output Total 1100 ml Balance 896.15 ml Intake Oral 1040 ml IV Total 956.15 ml Output Urine Total 1100 ml Physical Exam Abdomen: Soft, No tenderness Heart: Regular rate, Normal S1, Normal S2 Extremities: No clubbing, No edema General: Alert, Oriented X3, Cooperative HEENT: Atraumatic, PERRLA Lungs: Clear to auscultation MUSCULOSKELETAL: No joint tenderness, No deformity, No muscular tenderness noted Neck: Supple, Other (Right IJ cath placed. dressing is c/d/i) Neuro: Normal speech Psych/Mental Status: Mood NL Skin: No rashes, No significant lesion COMMENT cervantes placed Diagnosis Problem List Problems Medical Problems: (1) Acute on chronic renal failure Status: Acute Assessment Assessment * urinary retention 1. ARF with CKD II ATN SONA ,cr 2.8 no change from yesterday 2. a/c systolic CHF ICM EF 10% AICD 3. HTN 4. DM II with CKD II diet control 5. hyperlipidemia 6. mild to mod MR 7. moderate pulmonary HTN 8. severe weakness and debility 9. metabolic encephalopathy POA 10. moderate chronic PCL malnutrition PLAN: vascular consult, dec circulation to feet both side worse on rt side cervantes placed for bladder retention. pt may need dialysis, cr 3.0 spoke with renal. Home with home health or SNU next week spoke with renal+rehab today today. Kiran for UTI,E Coli olive cath placement . d/c iv fluids ,no improvement CHF on dobutamine cardiology consult appreciated d/c enestro On IV Dobutamine. dec pulses on feet ,arterial doppler Problems: Plan Plan of Care Problems Medical Problems: (1) Acute on chronic renal failure Status: Acute Comment Review of Relevant I have reviewed the following items marquise (where applicable) has been applied. Labs Laboratory Tests Test 08/20/16 16:23 08/20/16 20:35 08/21/16 06:20 08/21/16 07:41 Glucose (Fingerstick) 102mg/dL (70-99) 99mg/dL (70-99) 98mg/dL (70-99) White Blood Count 6.0x10^3/uL (4.0-11.0) Red Blood Count 3.61x10^6/uL (4.30-5.70) Hemoglobin 9.0g/dL (13.0-17.5) Hematocrit 28.9% (39.0-53.0) Mean Corpuscular Volume 80fL (79-100) Mean Corpuscular Hemoglobin 25pg (25-35) Mean Corpuscular Hemoglobin Concent 31g/dL (31-37) Red Cell Distribution Width 19.7% (11.5-14.5) Platelet Count 100x10^3/uL (140-400) Neutrophils (%) (Auto) 79% (31-73) Lymphocytes (%) (Auto) 11% (24-48) Monocytes (%) (Auto) 9% (0-9) Eosinophils (%) (Auto) 1% (0-3) Basophils (%) (Auto) 1% (0-3) Neutrophils # (Auto) 4.8x10^3uL (1.8-7.7) Lymphocytes # (Auto) 0.6x10^3/uL (1.0-4.8) Monocytes # (Auto) 0.6x10^3/uL (0.0-1.1) Eosinophils # (Auto) 0.0x10^3/uL (0.0-0.7) Basophils # (Auto) 0.0x10^3/uL (0.0-0.2) Prothrombin Time 21.6SEC (11.7-14.0) Prothromb Time International Ratio 2.0 (0.8-1.1) Sodium Level 132mmol/L (136-145) Potassium Level 3.7mmol/L (3.5-5.1) Chloride Level 101mmol/L (98-107) Carbon Dioxide Level 18mmol/L (21-32) Anion Gap 13 (6-14) Blood Urea Nitrogen 101mg/dL (8-26) Creatinine 2.9mg/dL (0.7-1.3) Estimated GFR (Cockcroft-Gault) 25.9 Glucose Level 220mg/dL (70-99) Calcium Level 8.1mg/dL (8.5-10.1) Phosphorus Level 4.9mg/dL (2.6-4.7) Albumin 2.5g/dL (3.4-5.0) Test 08/21/16 11:19 Glucose (Fingerstick) 107mg/dL (70-99) Microbiology 08/15/16 Urine Culture - Final, Complete 08/15/16 Urine Culture Result 1 (VJ) - Final, Complete 08/15/16 Urine Culture Result 2 (JV) - Final, Complete 08/15/16 Antimicrobic Susceptibility - Final, Complete Medications Current Medications Mineral Oil (Fleet Mineral Oil) 133 ml 1X ONCE RI ; Start 08/21/16 at 20:00; Stop 08/21/16 at 20:01 Non-Formulary Medication 1 ea Q4H PO Last administered on 08/21/16 12:43; Start 08/21/16 at 12:00; Stop 08/21/16 at 16:01 Sodium Bicarbonate 50 meq Q6H IV Last administered on 08/21/16 14:47; Start 08/21/16 at 14:00; Stop 08/21/16 at 20:01 Warfarin Sodium (Coumadin) 2 mg 1X WARF ONCE PO Last administered on 08/20/16 16:48; Start 08/20/16 at 16:00; Stop 08/20/16 at 16:01; Status DC Vitals/I & O Vital Sign - Last 24 Hours 08/20/16 08/20/16 08/20/16 08/20/16 16:49 19:25 20:30 23:30 Temp 97.7 97.4 97.7 97.4 Pulse 63 65 59 Resp 18 18 B/P 101/58 95/56 82/40 Pulse Ox 98 98 O2 Delivery Room Air Nasal Cannula O2 Flow Rate 1.0 08/21/16 08/21/16 08/21/16 08/21/16 03:30 07:00 08:33 10:27 Temp 98.4 98.2 98.4 98.2 Pulse 60 62 62 Resp 16 19 B/P 103/55 104/58 104/58 Pulse Ox 97 92 O2 Delivery Room Air Room Air Nasal Cannula O2 Flow Rate 1.0 4/7/17 4/7/17 4/7/17 10:27 11:30 14:56 Temp 98.0 98.5 98.0 98.5 Pulse 62 68 63 Resp 20 18 B/P 104/58 103/56 116/58 Pulse Ox 91 90 O2 Delivery Room Air Room Air Intake and Output 08/20/16 08/20/16 08/21/16 15:00 23:00 07:00 Intake Total 1071 ml 565.15 ml 360 ml Output Total 500 ml 600 ml Balance 1071 ml 65.15 ml -240 ml AFSHAN SLADE MD Aug 21, 2016 15:50
[2016-08-21] MEDS ORDERED: WARFARIN 3 MG TABLET. PO ONE (16:00)
--- NOTE | 2016-08-21 18:17 | PDOC ---
Provider Note Provider Note Vascular Consult dictated Imp; Ischemic rt heel ulcer, pressure type Severe distal daibetic PVD ( occluded all 3 tibial vessels by U/S 0 Severe renal insufficiency Plan: Will eventually need an angiogram , probably a CO2 with a limited amt. of dye in lower rt. leg. Will order early next week if creat. improves PIERRE MENDES MD Aug 21, 2016 18:17
[2016-08-21 19:22] VITALS: BP 98/50
[2016-08-21] MEDS ORDERED: MINERAL OIL 133 ML ENEMA. PR ONE (20:00)
[2016-08-21] MEDS: ATORVASTATIN CALCIUM 40 MG TABLET. PO SCH (20:50)
[2016-08-21 23:05] VITALS: BP 93/50
[2016-08-22 03:27] VITALS: BP 97/56
[2016-08-22 07:03] LABS: ALBUMIN 2.6 g/dL (3.4-5.0); CALCIUM 8.3 mg/dL (8.5-10.1); GFR 24.9; PHOSPHORUS 4.4 mg/dL (2.6-4.7); POTASSIUM 3.6 mmol/L (3.5-5.1)
[2016-08-22 07:33] LABS: INR 2.4 (0.8-1.1); PROTHROMBIN TIME PATIENT 24.4 SEC (11.7-14.0)
[2016-08-22 07:44] VITALS: BP 103/55
[2016-08-22] MEDS: INSULIN ASPART 300 UNITS/3 ML INSULN.PEN SQ SCH ×3 (08:00→17:00)
[2016-08-22 10:01] VITALS: BP 98/59
[2016-08-22] MEDS: PANTOPRAZOLE 40 MG TABLET.DR. PO SCH (10:01)
[2016-08-22] MEDS: SENNOSIDES/DOCUSATE 8.6/50MG TABLET. PO PRN (10:01)
[2016-08-22] MEDS: AMIODARONE HCL 200 MG TABLET. PO SCH (10:01)
[2016-08-22] MEDS: CEFPODOXIME PROXETIL 100 MG TABLET. PO SCH ×2 (10:01→21:06)
[2016-08-22] MEDS: CARVEDILOL 6.25 MG TABLET. PO SCH ×2 (10:02→17:00)
[2016-08-22] MEDS: ASPIRIN ENTERIC COATED 81 MG TABLET.DR. PO SCH (10:02)
--- NOTE | 2016-08-22 11:51 | PDOC ---
PROGRESS NOTES Subjective Subjective No new complaints. Objective Objective Vital Signs Date Time Temp Pulse Resp B/P Pulse Ox O2 Delivery O2 Flow Rate FiO2 08/22/16 10:02 68 98/59 08/22/16 10:01 97.6 20 96 Room Air 97.6 08/21/16 20:00 1.0 Intake and Output 08/22/16 07:00 Intake Total 558.75 ml Output Total 550 ml Balance 8.75 ml Intake Oral 420 ml IV Total 138.75 ml Output Urine Total 550 ml Physical Exam Physical Exam She is comfortable supine in bed and had PRAFO boots in place to both ankles.I spoke to her daughter at bedside and she plans to take her to [place] to her home when medically stable. Assessment Assessment Problems Medical Problems: (1) Acute on chronic renal failure Status: Acute Plan Plan of Care Agree with plans. Comment Review of Relevant I have reviewed the following items marquise (where applicable) has been applied. Labs Laboratory Tests Test 08/20/16 16:23 08/20/16 20:35 08/21/16 06:20 08/21/16 07:41 Glucose (Fingerstick) 102mg/dL (70-99) 99mg/dL (70-99) 98mg/dL (70-99) White Blood Count 6.0x10^3/uL (4.0-11.0) Red Blood Count 3.61x10^6/uL (4.30-5.70) Hemoglobin 9.0g/dL (13.0-17.5) Hematocrit 28.9% (39.0-53.0) Mean Corpuscular Volume 80fL (79-100) Mean Corpuscular Hemoglobin 25pg (25-35) Mean Corpuscular Hemoglobin Concent 31g/dL (31-37) Red Cell Distribution Width 19.7% (11.5-14.5) Platelet Count 100x10^3/uL (140-400) Neutrophils (%) (Auto) 79% (31-73) Lymphocytes (%) (Auto) 11% (24-48) Monocytes (%) (Auto) 9% (0-9) Eosinophils (%) (Auto) 1% (0-3) Basophils (%) (Auto) 1% (0-3) Neutrophils # (Auto) 4.8x10^3uL (1.8-7.7) Lymphocytes # (Auto) 0.6x10^3/uL (1.0-4.8) Monocytes # (Auto) 0.6x10^3/uL (0.0-1.1) Eosinophils # (Auto) 0.0x10^3/uL (0.0-0.7) Basophils # (Auto) 0.0x10^3/uL (0.0-0.2) Prothrombin Time 21.6SEC (11.7-14.0) Prothromb Time International Ratio 2.0 (0.8-1.1) Sodium Level 132mmol/L (136-145) Potassium Level 3.7mmol/L (3.5-5.1) Chloride Level 101mmol/L (98-107) Carbon Dioxide Level 18mmol/L (21-32) Anion Gap 13 (6-14) Blood Urea Nitrogen 101mg/dL (8-26) Creatinine 2.9mg/dL (0.7-1.3) Estimated GFR (Cockcroft-Gault) 25.9 Glucose Level 220mg/dL (70-99) Calcium Level 8.1mg/dL (8.5-10.1) Phosphorus Level 4.9mg/dL (2.6-4.7) Albumin 2.5g/dL (3.4-5.0) Test 08/21/16 11:19 08/21/16 17:23 08/21/16 20:35 08/22/16 06:35 Glucose (Fingerstick) 107mg/dL (70-99) 114mg/dL (70-99) 108mg/dL (70-99) Prothrombin Time 24.4SEC (11.7-14.0) Prothromb Time International Ratio 2.4 (0.8-1.1) Sodium Level 133mmol/L (136-145) Potassium Level 3.6mmol/L (3.5-5.1) Chloride Level 101mmol/L (98-107) Carbon Dioxide Level 20mmol/L (21-32) Anion Gap 12 (6-14) Blood Urea Nitrogen 105mg/dL (8-26) Creatinine 3.0mg/dL (0.7-1.3) Estimated GFR (Cockcroft-Gault) 24.9 Glucose Level 146mg/dL (70-99) Calcium Level 8.3mg/dL (8.5-10.1) Phosphorus Level 4.4mg/dL (2.6-4.7) Albumin 2.6g/dL (3.4-5.0) Test 08/22/16 08:09 08/22/16 11:10 Glucose (Fingerstick) 90mg/dL (70-99) 104mg/dL (70-99) Laboratory Tests Test 08/21/16 17:23 08/21/16 20:35 08/22/16 06:35 08/22/16 08:09 Glucose (Fingerstick) 114mg/dL (70-99) 108mg/dL (70-99) 90mg/dL (70-99) Prothrombin Time 24.4SEC (11.7-14.0) Prothromb Time International Ratio 2.4 (0.8-1.1) Sodium Level 133mmol/L (136-145) Potassium Level 3.6mmol/L (3.5-5.1) Chloride Level 101mmol/L (98-107) Carbon Dioxide Level 20mmol/L (21-32) Anion Gap 12 (6-14) Blood Urea Nitrogen 105mg/dL (8-26) Creatinine 3.0mg/dL (0.7-1.3) Estimated GFR (Cockcroft-Gault) 24.9 Glucose Level 146mg/dL (70-99) Calcium Level 8.3mg/dL (8.5-10.1) Phosphorus Level 4.4mg/dL (2.6-4.7) Albumin 2.6g/dL (3.4-5.0) Test 08/22/16 11:10 Glucose (Fingerstick) 104mg/dL (70-99) Microbiology 08/15/16 Urine Culture - Final, Complete 08/15/16 Urine Culture Result 1 (JV) - Final, Complete 08/15/16 Urine Culture Result 2 (JV) - Final, Complete 08/15/16 Antimicrobic Susceptibility - Final, Complete Medications Current Medications Insulin Aspart (Novolog) 0-5 UNITS TIDWMEALS SQ ; Start 08/14/16 at 17:30 Dextrose 12.5 gm 12.5 gm PRN Q15MIN PRN IV SEE COMMENTS; Start 08/14/16 at 16: 45 Sodium Chloride (Iv Sodium Chloride 0.9% 1000ml Bag) 1,000 ml @ 100 mls/hr Q10H IV Last administered on 08/14/16 18:53; Start 08/14/16 at 17:30; Stop 08/15/16 at 03:29; Status DC Amiodarone HCl (Cordarone) 200 mg DAILY PO Last administered on 08/22/16 10:01 ; Start 08/15/16 at 09:00 Aspirin (Ecotrin) 81 mg DAILY PO Last administered on 08/22/16 10:02; Start 08/15/16 at 09:00 Atorvastatin Calcium (Lipitor) 40 mg QHS PO Last administered on 08/21/16 20:50 ; Start 08/14/16 at 21:00 Carvedilol (Coreg) 6.25 mg BIDWMEALS PO Last administered on 08/22/16 10:02; Start 08/14/16 at 17:30 Colestipol HCl (Colestid) 1 gm TID PO Last administered on 08/17/16 20:55; Start 08/14/16 at 21:00; Stop 08/18/16 at 10:08; Status DC Metoclopramide HCl (Reglan) 5 mg PRN BID PRN PO NAUSEA; Start 08/14/16 at 16:45 ; Stop 08/16/16 at 10:25; Status DC Sacubitril/ Valsartan (Entresto 24 Mg-26 Mg) 1 tab BID PO Last administered on 08/17/16 09:14; Start 08/14/16 at 21:00; Stop 08/17/16 at 10:16; Status DC Warfarin Sodium (Coumadin) 2.5 mg DAILY16 PO Last administered on 08/14/16 18: 50; Start 08/14/16 at 18:00; Stop 08/15/16 at 14:13; Status DC Warfarin Sodium (Coumadin Per Physician) 1 each PRN DAILY PRN MC SEE COMMENTS; Start 08/14/16 at 17:15; Stop 08/15/16 at 09:54; Status DC Sodium Polystyrene Sulfonate (Kayexalate) 60 gm 1X ONCE PO Last administered on 08/14/16 18:51; Start 08/14/16 at 18:30; Stop 08/14/16 at 18:31; Status DC Warfarin Sodium (Coumadin Per Pharmacy) 1 each PRN DAILY PRN MC SEE COMMENTS Last administered on 08/21/16 15:48; Start 08/15/16 at 10:00 Pantoprazole Sodium 40 mg 40 mg DAILYAC PO Last administered on 08/22/16 10:01 ; Start 08/15/16 at 11:30 Dobutamine HCl/ Dextrose 250 ml @ 0 mls/hr CONT PRN IV ; Start 08/15/16 at 14:00 ; Stop 08/15/16 at 14:53; Status DC Albumin Human (Albuminar) 100 ml @ 100 mls/hr 1X ONCE IV Last administered on 08/15/16 15:25; Start 08/15/16 at 14:00; Stop 08/15/16 at 14:59; Status DC Furosemide 40 mg 40 mg 1X ONCE IVP Last administered on 08/15/16 16:22; Start 08/15/16 at 15:00; Stop 08/15/16 at 15:01; Status DC Albumin Human (Albuminar) 100 ml @ 100 mls/hr 1X ONCE IV Last administered on 08/16/16 08:41; Start 08/16/16 at 09:00; Stop 08/16/16 at 09:59; Status DC Furosemide (Lasix) 40 mg 1X ONCE IVP Last administered on 08/16/16 09:45; Start 08/16/16 at 10:00; Stop 08/16/16 at 10:01; Status DC Warfarin Sodium 4 mg 4 mg 1X WARF ONCE PO Last administered on 08/15/16 16:33 ; Start 08/15/16 at 16:00; Stop 08/15/16 at 16:01; Status DC Dobutamine HCl/ Dextrose 250 ml @ 0 mls/hr CONT PRN PRN IV SEE I/O RECORD Last administered on 08/21/16 14:47; Start 08/15/16 at 14:53 Sodium Bicarbonate 50 meq 50 meq Q2HR IV Last administered on 08/15/16 18:20; Start 08/15/16 at 16:00; Stop 08/15/16 at 18:30; Status DC Magnesium Sulfate/ Dextrose (Magnesium Sulfate PREMIX 2GM) 50 ml @ 25 mls/hr PRN DAILY PRN IV for Mag < 1.7 on am labs; Start 08/15/16 at 15:30 Warfarin Sodium (Coumadin) 4 mg 1X WARF ONCE PO Last administered on 08/16/16 17:28; Start 08/16/16 at 16:00; Stop 08/16/16 at 16:01; Status DC Ondansetron HCl 4 mg 4 mg PRN Q6HRS PRN IV nausea Last administered on 17:21; Start 08/16/16 at 20:30 Ceftriaxone Sodium 1 gm/ Sodium Chloride 50 ml @ 100 mls/hr Q24H IV Last administered on 08/19/16 10:00; Start 08/17/16 at 10:00; Stop 08/19/16 at 12:56; Status DC Sodium Chloride (Iv Sodium Chloride 0.9% 1000ml Bag) 1,000 ml @ 75 mls/hr [id number] IV Last administered on 08/19/16 16:58; Start 08/17/16 at 10:15; Stop at 09:27; Status DC Warfarin Sodium (Coumadin) 5 mg 1X WARF ONCE PO ; Start 08/17/16 at 16:00; Stop 08/17/16 at 16:01; Status DC Heparin Sodium/ Sodium Chloride 1,000 unit 1X ONCE IART Last administered on 11:45; Start 08/18/16 at 11:30; Stop 08/18/16 at 11:31; Status DC Midazolam HCl (Versed) 2 mg 1X ONCE IV Last administered on 08/18/16 11:46; Start 08/18/16 at 11:30; Stop 08/18/16 at 11:31; Status DC Fentanyl Citrate (Fentanyl 2ml Vial) 100 mcg 1X ONCE IV Last administered on 11:47; Start 08/18/16 at 11:30; Stop 08/18/16 at 11:31; Status DC Lidocaine/ Epinephrine 15 ml 15 ml 1X ONCE IJ Last administered on 08/18/16 11 :44; Start 08/18/16 at 11:30; Stop 08/18/16 at 11:31; Status DC Vancomycin HCl 250 ml @ 250 mls/hr 1X ONCE IRR Last administered on 08/18/16 11:45; Start 08/18/16 at 11:30; Stop 08/18/16 at 12:29; Status DC Heparin Sodium (Porcine) (Hep Lock Adult) 500 unit 1X ONCE IV Last administered on 08/18/16 11:46; Start 08/18/16 at 11:30; Stop 08/18/16 at 11:31; Status DC Heparin Sodium (Porcine) (Hep Lock Adult) 500 unit STK-MED ONCE IV ; Start at 09:29; Stop 08/18/16 at 11:42; Status DC Lidocaine/ Epinephrine 20 ml 20 ml STK-MED ONCE .ROUTE ; Start 08/18/16 at 09:29 ; Stop 08/18/16 at 11:42; Status DC Heparin Sodium/ Sodium Chloride 500 ml @ As Directed STK-MED ONCE .ROUTE ; Start 08/18/16 at 09:29; Stop 08/18/16 at 11:42; Status DC Vancomycin HCl 250 ml @ As Directed STK-MED ONCE .ROUTE ; Start 08/18/16 at 09: 29; Stop 08/18/16 at 11:42; Status DC Fentanyl Citrate (Fentanyl 2ml Vial) 100 mcg STK-MED ONCE .ROUTE ; Start at 10:29; Stop 08/18/16 at 11:43; Status DC Midazolam HCl 2 mg 2 mg STK-MED ONCE .ROUTE ; Start 08/18/16 at 10:30; Stop at 11:43; Status DC Iron Sucrose/ Sodium Chloride (Venofer/Iv Sodium Chloride 0.9% 100ml) 110 ml @ 55 mls/hr 3X/WEEK IV Last administered on 08/21/16 10:28; Start 08/19/16 at 09: 00; Stop 08/28/16 at 10:59 Warfarin Sodium (Coumadin) 5 mg 1X WARF ONCE PO Last administered on 08/18/16 17:56; Start 08/18/16 at 16:00; Stop 08/18/16 at 16:01; Status DC Warfarin Sodium (Coumadin) 3 mg 1X WARF ONCE PO ; Start 08/19/16 at 16:00; Stop 08/19/16 at 16:01; Status Cancel Cefpodoxime Proxetil (Vantin) 100 mg BID PO Last administered on 08/22/16 10:01 ; Start 08/19/16 at 21:00 Warfarin Sodium (Coumadin) 2.5 mg 1X WARF ONCE PO Last administered on 16:59; Start 08/19/16 at 16:00; Stop 08/19/16 at 16:01; Status DC Senna/Docusate Sodium 1 tab 1 tab PRN BID PRN PO CONSTIPATION Last administered on 08/20/16 14:18; Start 08/19/16 at 13:30; Stop 08/20/16 at 14:43; Status DC Sodium Chloride 250 ml @ 0 mls/hr 1X ONCE IV Last administered on 08/19/16 14: 33; Start 08/19/16 at 13:45; Stop 08/19/16 at 13:53; Status DC Sodium Chloride (Iv Sodium Chloride 0.9% 500ml Bag) 500 ml @ 0 mls/hr 1X ONCE IV Last administered on 08/19/16 16:58; Start 08/19/16 at 16:00; Stop 08/19/16 at 16:01; Status DC Senna/Docusate Sodium (Senna Plus) 1 tab PRN BID PRN PO CONSTIPATION Last administered on 08/22/16 10:01; Start 08/20/16 at 10:00 Bisacodyl (Dulcolax Supp) 10 mg 1X ONCE OK ; Start 08/20/16 at 11:00; Stop at 11:00; Status DC Bisacodyl (Dulcolax Supp) 10 mg 1X ONCE OK Last administered on 08/20/16 16:49 ; Start 08/20/16 at 14:30; Stop 08/20/16 at 14:31; Status DC Warfarin Sodium (Coumadin) 2 mg 1X WARF ONCE PO Last administered on 08/20/16 16:48; Start 08/20/16 at 16:00; Stop 08/20/16 at 16:01; Status DC Mineral Oil (Fleet Mineral Oil) 133 ml 1X ONCE OK ; Start 08/21/16 at 20:00; Stop 08/21/16 at 20:00; Status DC Non-Formulary Medication 1 ea Q4H PO Last administered on 08/21/16 16:18; Start 08/21/16 at 12:00; Stop 08/21/16 at 16:01; Status DC Sodium Bicarbonate 50 meq Q6H IV Last administered on 08/21/16 20:16; Start 08/21/16 at 14:00; Stop 08/21/16 at 20:01; Status DC Warfarin Sodium (Coumadin) 3 mg 1X WARF ONCE PO Last administered on 08/21/16 16:16; Start 08/21/16 at 16:00; Stop 08/21/16 at 16:01; Status DC Active Scripts Active Entresto 24 mg-26 mg Tablet (Sacubitril/Valsartan) 1 Each Tablet 1 Tab PO BID Coumadin (Warfarin Sodium) 2.5 Mg Tablet 2.5 Mg PO DAILY16 Reported Reglan (Metoclopramide Hcl) 10 Mg Tablet 5 Mg PO PRN BID PRN Atorvastatin Calcium 40 Mg Tablet 1 Tab PO DAILY Colestid (Colestipol Hcl) 1 Gm Tablet 1 Gm PO TID Pacerone (Amiodarone Hcl) 200 Mg Tablet 200 Mg PO DAILY Lasix (Furosemide) 80 Mg Tablet 1 Tab PO BID Gabapentin 100 Mg Capsule 1 Cap PO TID Aspir 81 (Aspirin) 81 Mg Tablet.dr 1 Tab PO DAILY Coreg (Carvedilol) 6.25 Mg Tablet 1 Tab PO BID K-Tab ER (Potassium Chloride) 20 Meq Tablet.er 20 Meq PO BID Vitals/I & O Vital Sign - Last 24 Hours 08/21/16 08/21/16 08/21/16 08/21/16 14:56 16:17 19:22 20:00 Temp 98.5 98.6 98.5 98.6 Pulse 63 63 64 Resp 18 20 B/P 116/58 116/58 98/50 Pulse Ox 90 92 O2 Delivery Room Air Room Air Nasal Cannula O2 Flow Rate 1.0 08/21/16 08/22/16 08/22/16 08/22/16 23:05 03:27 07:44 10:01 Temp 98.0 97.4 97.9 98.0 97.4 97.9 Pulse 63 64 65 65 Resp 18 18 18 B/P 93/50 97/56 103/55 103/55 Pulse Ox 94 96 95 O2 Delivery Room Air Room Air Room Air 08/22/16 08/22/16 10:01 10:02 Temp 97.6 97.6 Pulse 68 68 Resp 20 B/P 98/59 98/59 Pulse Ox 96 O2 Delivery Room Air Intake and Output 08/21/16 08/21/16 08/22/16 15:00 23:00 07:00 Intake Total 220 ml 38.75 ml 300 ml Output Total 300 ml 250 ml Balance 220 ml -261.25 ml 50 ml MADDIE AMBROSE MD Aug 22, 2016 11:51
--- NOTE | 2016-08-22 12:16 | PDOC ---
PROGRESS NOTES Subjective Subjective feels week Objective Objective Vital Signs Date Time Temp Pulse Resp B/P Pulse Ox O2 Delivery O2 Flow Rate FiO2 08/22/16 10:02 68 98/59 08/22/16 10:01 97.6 20 96 Room Air 97.6 08/21/16 20:00 1.0 Intake and Output 08/22/16 07:00 Intake Total 558.75 ml Output Total 550 ml Balance 8.75 ml Intake Oral 420 ml IV Total 138.75 ml Output Urine Total 550 ml Physical Exam Abdomen: Soft, No tenderness Heart: Regular rate, Normal S1, Normal S2 Extremities: No clubbing, No edema General: Alert, Oriented X3, Cooperative HEENT: Atraumatic, PERRLA Lungs: Clear to auscultation MUSCULOSKELETAL: No joint tenderness, No deformity, No muscular tenderness noted Neck: Supple, Other (Right IJ cath placed. dressing is c/d/i) Neuro: Normal speech Psych/Mental Status: Mood NL Skin: No rashes, No significant lesion COMMENT cervantes placed Diagnosis Problem List Problems Medical Problems: (1) Acute on chronic renal failure Status: Acute Assessment Assessment * urinary retention 1. ARF with CKD II ATN SONA ,cr 2.9 no change from yesterday 2. a/c systolic CHF ICM EF 10% AICD 3. HTN 4. DM II with CKD II diet control 5. hyperlipidemia 6. mild to mod MR 7. moderate pulmonary HTN 8. severe weakness and debility 9. metabolic encephalopathy POA 10. moderate chronic PCL malnutrition PLAN: spoke with pt+daughter. want DNR , proceed with dialysis. want to take to [place] to stay with daughter. ? hospice down the road. vascular consult, dec circulation to feet both side worse on rt side cervantes placed for bladder retention. pt may need dialysis, cr 3.0 spoke with renal. Home with home health or SNU next week spoke with renal+rehab today today. Vantin for UTI,E Coli olive cath placement . d/c iv fluids ,no improvement CHF on dobutamine cardiology consult appreciated d/c enestro On IV Dobutamine. dec pulses on feet ,arterial doppler Problems: Plan Plan of Care Problems Medical Problems: (1) Acute on chronic renal failure Status: Acute Comment Review of Relevant I have reviewed the following items marquise (where applicable) has been applied. Labs Laboratory Tests Test 08/21/16 17:23 08/21/16 20:35 08/22/16 06:35 08/22/16 08:09 Glucose (Fingerstick) 114mg/dL (70-99) 108mg/dL (70-99) 90mg/dL (70-99) Prothrombin Time 24.4SEC (11.7-14.0) Prothromb Time International Ratio 2.4 (0.8-1.1) Sodium Level 133mmol/L (136-145) Potassium Level 3.6mmol/L (3.5-5.1) Chloride Level 101mmol/L (98-107) Carbon Dioxide Level 20mmol/L (21-32) Anion Gap 12 (6-14) Blood Urea Nitrogen 105mg/dL (8-26) Creatinine 3.0mg/dL (0.7-1.3) Estimated GFR (Cockcroft-Gault) 24.9 Glucose Level 146mg/dL (70-99) Calcium Level 8.3mg/dL (8.5-10.1) Phosphorus Level 4.4mg/dL (2.6-4.7) Albumin 2.6g/dL (3.4-5.0) Test 08/22/16 11:10 Glucose (Fingerstick) 104mg/dL (70-99) Microbiology 08/15/16 Urine Culture - Final, Complete 08/15/16 Urine Culture Result 1 (JV) - Final, Complete 08/15/16 Urine Culture Result 2 (JV) - Final, Complete 08/15/16 Antimicrobic Susceptibility - Final, Complete Medications Current Medications Mineral Oil (Fleet Mineral Oil) 133 ml 1X ONCE CO ; Start 08/21/16 at 20:00; Stop 08/21/16 at 20:00; Status DC Sodium Bicarbonate 50 meq Q6H IV Last administered on 08/21/16 20:16; Start 08/21/16 at 14:00; Stop 08/21/16 at 20:01; Status DC Warfarin Sodium (Coumadin) 3 mg 1X WARF ONCE PO Last administered on 08/21/16 16:16; Start 08/21/16 at 16:00; Stop 08/21/16 at 16:01; Status DC Vitals/I & O Vital Sign - Last 24 Hours 08/21/16 08/21/16 08/21/16 08/21/16 14:56 16:17 19:22 20:00 Temp 98.5 98.6 98.5 98.6 Pulse 63 63 64 Resp 18 20 B/P 116/58 116/58 98/50 Pulse Ox 90 92 O2 Delivery Room Air Room Air Nasal Cannula O2 Flow Rate 1.0 08/21/16 08/22/16 08/22/16 08/22/16 23:05 03:27 07:44 10:01 Temp 98.0 97.4 97.9 98.0 97.4 97.9 Pulse 63 64 65 65 Resp 18 18 B/P 93/50 97/56 103/55 103/55 Pulse Ox 94 96 95 O2 Delivery Room Air Room Air Room Air 08/22/16 08/22/16 10:01 10:02 Temp 97.6 97.6 Pulse 68 68 Resp 20 B/P 98/59 98/59 Pulse Ox 96 O2 Delivery Room Air Intake and Output 08/21/16 08/21/16 08/22/16 15:00 23:00 07:00 Intake Total 220 ml 38.75 ml 300 ml Output Total 300 ml 250 ml Balance 220 ml -261.25 ml 50 ml AFSHAN SLADE MD Aug 22, 2016 12:16
--- NOTE | 2016-08-22 12:39 | PDOC ---
PROGRESS NOTES Subjective Subjective No new complaints. No dyspnea at rest. She states that she had a BM. Objective Objective Vital Signs Date Time Temp Pulse Resp B/P Pulse Ox O2 Delivery O2 Flow Rate FiO2 08/22/16 10:02 68 98/59 08/22/16 10:01 97.6 20 96 Room Air 97.6 08/21/16 20:00 1.0 Intake and Output 08/22/16 07:00 Intake Total 558.75 ml Output Total 550 ml Balance 8.75 ml Intake Oral 420 ml IV Total 138.75 ml Output Urine Total 550 ml Physical Exam Physical Exam No significant changes in cardiac exam Assessment Assessment Patient seems to be doing better today. I agree with present plan and to continue the drip. Problems Medical Problems: (1) Acute on chronic renal failure Status: Acute Comment Review of Relevant I have reviewed the following items marquise (where applicable) has been applied. Labs Laboratory Tests Test 08/20/16 16:23 08/20/16 20:35 08/21/16 06:20 08/21/16 07:41 Glucose (Fingerstick) 102mg/dL (70-99) 99mg/dL (70-99) 98mg/dL (70-99) White Blood Count 6.0x10^3/uL (4.0-11.0) Red Blood Count 3.61x10^6/uL (4.30-5.70) Hemoglobin 9.0g/dL (13.0-17.5) Hematocrit 28.9% (39.0-53.0) Mean Corpuscular Volume 80fL (79-100) Mean Corpuscular Hemoglobin 25pg (25-35) Mean Corpuscular Hemoglobin Concent 31g/dL (31-37) Red Cell Distribution Width 19.7% (11.5-14.5) Platelet Count 100x10^3/uL (140-400) Neutrophils (%) (Auto) 79% (31-73) Lymphocytes (%) (Auto) 11% (24-48) Monocytes (%) (Auto) 9% (0-9) Eosinophils (%) (Auto) 1% (0-3) Basophils (%) (Auto) 1% (0-3) Neutrophils # (Auto) 4.8x10^3uL (1.8-7.7) Lymphocytes # (Auto) 0.6x10^3/uL (1.0-4.8) Monocytes # (Auto) 0.6x10^3/uL (0.0-1.1) Eosinophils # (Auto) 0.0x10^3/uL (0.0-0.7) Basophils # (Auto) 0.0x10^3/uL (0.0-0.2) Prothrombin Time 21.6SEC (11.7-14.0) Prothromb Time International Ratio 2.0 (0.8-1.1) Sodium Level 132mmol/L (136-145) Potassium Level 3.7mmol/L (3.5-5.1) Chloride Level 101mmol/L (98-107) Carbon Dioxide Level 18mmol/L (21-32) Anion Gap 13 (6-14) Blood Urea Nitrogen 101mg/dL (8-26) Creatinine 2.9mg/dL (0.7-1.3) Estimated GFR (Cockcroft-Gault) 25.9 Glucose Level 220mg/dL (70-99) Calcium Level 8.1mg/dL (8.5-10.1) Phosphorus Level 4.9mg/dL (2.6-4.7) Albumin 2.5g/dL (3.4-5.0) Test 08/21/16 11:19 08/21/16 17:23 08/21/16 20:35 08/22/16 06:35 Glucose (Fingerstick) 107mg/dL (70-99) 114mg/dL (70-99) 108mg/dL (70-99) Prothrombin Time 24.4SEC (11.7-14.0) Prothromb Time International Ratio 2.4 (0.8-1.1) Sodium Level 133mmol/L (136-145) Potassium Level 3.6mmol/L (3.5-5.1) Chloride Level 101mmol/L (98-107) Carbon Dioxide Level 20mmol/L (21-32) Anion Gap 12 (6-14) Blood Urea Nitrogen 105mg/dL (8-26) Creatinine 3.0mg/dL (0.7-1.3) Estimated GFR (Cockcroft-Gault) 24.9 Glucose Level 146mg/dL (70-99) Calcium Level 8.3mg/dL (8.5-10.1) Phosphorus Level 4.4mg/dL (2.6-4.7) Albumin 2.6g/dL (3.4-5.0) Test 08/22/16 08:09 08/22/16 11:10 Glucose (Fingerstick) 90mg/dL (70-99) 104mg/dL (70-99) Laboratory Tests Test 08/21/16 17:23 08/21/16 20:35 08/22/16 06:35 08/22/16 08:09 Glucose (Fingerstick) 114mg/dL (70-99) 108mg/dL (70-99) 90mg/dL (70-99) Prothrombin Time 24.4SEC (11.7-14.0) Prothromb Time International Ratio 2.4 (0.8-1.1) Sodium Level 133mmol/L (136-145) Potassium Level 3.6mmol/L (3.5-5.1) Chloride Level 101mmol/L (98-107) Carbon Dioxide Level 20mmol/L (21-32) Anion Gap 12 (6-14) Blood Urea Nitrogen 105mg/dL (8-26) Creatinine 3.0mg/dL (0.7-1.3) Estimated GFR (Cockcroft-Gault) 24.9 Glucose Level 146mg/dL (70-99) Calcium Level 8.3mg/dL (8.5-10.1) Phosphorus Level 4.4mg/dL (2.6-4.7) Albumin 2.6g/dL (3.4-5.0) Test 08/22/16 11:10 Glucose (Fingerstick) 104mg/dL (70-99) Microbiology 08/15/16 Urine Culture - Final, Complete 08/15/16 Urine Culture Result 1 (JV) - Final, Complete 08/15/16 Urine Culture Result 2 (JV) - Final, Complete 08/15/16 Antimicrobic Susceptibility - Final, Complete Medications Current Medications Insulin Aspart (Novolog) 0-5 UNITS TIDWMEALS SQ ; Start 08/14/16 at 17:30 Dextrose 12.5 gm 12.5 gm PRN Q15MIN PRN IV SEE COMMENTS; Start 08/14/16 at 16: 45 Sodium Chloride (Iv Sodium Chloride 0.9% 1000ml Bag) 1,000 ml @ 100 mls/hr Q10H IV Last administered on 08/14/16 18:53; Start 08/14/16 at 17:30; Stop 08/15/16 at 03:29; Status DC Amiodarone HCl (Cordarone) 200 mg DAILY PO Last administered on 08/22/16 10:01 ; Start 08/15/16 at 09:00 Aspirin (Ecotrin) 81 mg DAILY PO Last administered on 08/22/16 10:02; Start 08/15/16 at 09:00 Atorvastatin Calcium (Lipitor) 40 mg QHS PO Last administered on 08/21/16 20:50 ; Start 08/14/16 at 21:00 Carvedilol (Coreg) 6.25 mg BIDWMEALS PO Last administered on 08/22/16 10:02; Start 08/14/16 at 17:30 Colestipol HCl (Colestid) 1 gm TID PO Last administered on 08/17/16 20:55; Start 08/14/16 at 21:00; Stop 08/18/16 at 10:08; Status DC Metoclopramide HCl (Reglan) 5 mg PRN BID PRN PO NAUSEA; Start 08/14/16 at 16:45 ; Stop 08/16/16 at 10:25; Status DC Sacubitril/ Valsartan (Entresto 24 Mg-26 Mg) 1 tab BID PO Last administered on 08/17/16 09:14; Start 08/14/16 at 21:00; Stop 08/17/16 at 10:16; Status DC Warfarin Sodium (Coumadin) 2.5 mg DAILY16 PO Last administered on 08/14/16 18: 50; Start 08/14/16 at 18:00; Stop 08/15/16 at 14:13; Status DC Warfarin Sodium (Coumadin Per Physician) 1 each PRN DAILY PRN MC SEE COMMENTS; Start 08/14/16 at 17:15; Stop 08/15/16 at 09:54; Status DC Sodium Polystyrene Sulfonate (Kayexalate) 60 gm 1X ONCE PO Last administered on 08/14/16 18:51; Start 08/14/16 at 18:30; Stop 08/14/16 at 18:31; Status DC Warfarin Sodium (Coumadin Per Pharmacy) 1 each PRN DAILY PRN MC SEE COMMENTS Last administered on 08/21/16 15:48; Start 08/15/16 at 10:00 Pantoprazole Sodium 40 mg 40 mg DAILYAC PO Last administered on 08/22/16 10:01 ; Start 08/15/16 at 11:30 Dobutamine HCl/ Dextrose 250 ml @ 0 mls/hr CONT PRN IV ; Start 08/15/16 at 14:00 ; Stop 08/15/16 at 14:53; Status DC Albumin Human (Albuminar) 100 ml @ 100 mls/hr 1X ONCE IV Last administered on 08/15/16 15:25; Start 08/15/16 at 14:00; Stop 08/15/16 at 14:59; Status DC Furosemide 40 mg 40 mg 1X ONCE IVP Last administered on 08/15/16 16:22; Start 08/15/16 at 15:00; Stop 08/15/16 at 15:01; Status DC Albumin Human (Albuminar) 100 ml @ 100 mls/hr 1X ONCE IV Last administered on 08/16/16 08:41; Start 08/16/16 at 09:00; Stop 08/16/16 at 09:59; Status DC Furosemide (Lasix) 40 mg 1X ONCE IVP Last administered on 08/16/16 09:45; Start 08/16/16 at 10:00; Stop 08/16/16 at 10:01; Status DC Warfarin Sodium 4 mg 4 mg 1X WARF ONCE PO Last administered on 08/15/16 16:33 ; Start 08/15/16 at 16:00; Stop 08/15/16 at 16:01; Status DC Dobutamine HCl/ Dextrose 250 ml @ 0 mls/hr CONT PRN PRN IV SEE I/O RECORD Last administered on 08/21/16 14:47; Start 08/15/16 at 14:53 Sodium Bicarbonate 50 meq 50 meq Q2HR IV Last administered on 08/15/16 18:20; Start 08/15/16 at 16:00; Stop 08/15/16 at 18:30; Status DC Magnesium Sulfate/ Dextrose (Magnesium Sulfate PREMIX 2GM) 50 ml @ 25 mls/hr PRN DAILY PRN IV for Mag < 1.7 on am labs; Start 08/15/16 at 15:30 Warfarin Sodium (Coumadin) 4 mg 1X WARF ONCE PO Last administered on 08/16/16 17:28; Start 08/16/16 at 16:00; Stop 08/16/16 at 16:01; Status DC Ondansetron HCl 4 mg 4 mg PRN Q6HRS PRN IV nausea Last administered on 17:21; Start 08/16/16 at 20:30 Ceftriaxone Sodium 1 gm/ Sodium Chloride 50 ml @ 100 mls/hr Q24H IV Last administered on 08/19/16 10:00; Start 08/17/16 at 10:00; Stop 08/19/16 at 12:56; Status DC Sodium Chloride (Iv Sodium Chloride 0.9% 1000ml Bag) 1,000 ml @ 75 mls/hr [id number] IV Last administered on 08/19/16 16:58; Start 08/17/16 at 10:15; Stop at 09:27; Status DC Warfarin Sodium (Coumadin) 5 mg 1X WARF ONCE PO ; Start 08/17/16 at 16:00; Stop 08/17/16 at 16:01; Status DC Heparin Sodium/ Sodium Chloride 1,000 unit 1X ONCE IART Last administered on 11:45; Start 08/18/16 at 11:30; Stop 08/18/16 at 11:31; Status DC Midazolam HCl (Versed) 2 mg 1X ONCE IV Last administered on 08/18/16 11:46; Start 08/18/16 at 11:30; Stop 08/18/16 at 11:31; Status DC Fentanyl Citrate (Fentanyl 2ml Vial) 100 mcg 1X ONCE IV Last administered on 11:47; Start 08/18/16 at 11:30; Stop 08/18/16 at 11:31; Status DC Lidocaine/ Epinephrine 15 ml 15 ml 1X ONCE IJ Last administered on 08/18/16 11 :44; Start 08/18/16 at 11:30; Stop 08/18/16 at 11:31; Status DC Vancomycin HCl 250 ml @ 250 mls/hr 1X ONCE IRR Last administered on 08/18/16 11:45; Start 08/18/16 at 11:30; Stop 08/18/16 at 12:29; Status DC Heparin Sodium (Porcine) (Hep Lock Adult) 500 unit 1X ONCE IV Last administered on 08/18/16 11:46; Start 08/18/16 at 11:30; Stop 08/18/16 at 11:31; Status DC Heparin Sodium (Porcine) (Hep Lock Adult) 500 unit STK-MED ONCE IV ; Start at 09:29; Stop 08/18/16 at 11:42; Status DC Lidocaine/ Epinephrine 20 ml 20 ml STK-MED ONCE .ROUTE ; Start 08/18/16 at 09:29 ; Stop 08/18/16 at 11:42; Status DC Heparin Sodium/ Sodium Chloride 500 ml @ As Directed STK-MED ONCE .ROUTE ; Start 08/18/16 at 09:29; Stop 08/18/16 at 11:42; Status DC Vancomycin HCl 250 ml @ As Directed STK-MED ONCE .ROUTE ; Start 08/18/16 at 09: 29; Stop 08/18/16 at 11:42; Status DC Fentanyl Citrate (Fentanyl 2ml Vial) 100 mcg STK-MED ONCE .ROUTE ; Start at 10:29; Stop 08/18/16 at 11:43; Status DC Midazolam HCl 2 mg 2 mg STK-MED ONCE .ROUTE ; Start 08/18/16 at 10:30; Stop at 11:43; Status DC Iron Sucrose/ Sodium Chloride (Venofer/Iv Sodium Chloride 0.9% 100ml) 110 ml @ 55 mls/hr 3X/WEEK IV Last administered on 08/21/16 10:28; Start 08/19/16 at 09: 00; Stop 08/28/16 at 10:59 Warfarin Sodium (Coumadin) 5 mg 1X WARF ONCE PO Last administered on 08/18/16 17:56; Start 08/18/16 at 16:00; Stop 08/18/16 at 16:01; Status DC Warfarin Sodium (Coumadin) 3 mg 1X WARF ONCE PO ; Start 08/19/16 at 16:00; Stop 08/19/16 at 16:01; Status Cancel Cefpodoxime Proxetil (Vantin) 100 mg BID PO Last administered on 08/22/16 10:01 ; Start 08/19/16 at 21:00 Warfarin Sodium (Coumadin) 2.5 mg 1X WARF ONCE PO Last administered on 16:59; Start 08/19/16 at 16:00; Stop 08/19/16 at 16:01; Status DC Senna/Docusate Sodium 1 tab 1 tab PRN BID PRN PO CONSTIPATION Last administered on 08/20/16 14:18; Start 08/19/16 at 13:30; Stop 08/20/16 at 14:43; Status DC Sodium Chloride 250 ml @ 0 mls/hr 1X ONCE IV Last administered on 08/19/16 14: 33; Start 08/19/16 at 13:45; Stop 08/19/16 at 13:53; Status DC Sodium Chloride (Iv Sodium Chloride 0.9% 500ml Bag) 500 ml @ 0 mls/hr 1X ONCE IV Last administered on 08/19/16 16:58; Start 08/19/16 at 16:00; Stop 08/19/16 at 16:01; Status DC Senna/Docusate Sodium (Senna Plus) 1 tab PRN BID PRN PO CONSTIPATION Last administered on 08/22/16 10:01; Start 08/20/16 at 10:00 Bisacodyl (Dulcolax Supp) 10 mg 1X ONCE VT ; Start 08/20/16 at 11:00; Stop at 11:00; Status DC Bisacodyl (Dulcolax Supp) 10 mg 1X ONCE VT Last administered on 08/20/16 16:49 ; Start 08/20/16 at 14:30; Stop 08/20/16 at 14:31; Status DC Warfarin Sodium (Coumadin) 2 mg 1X WARF ONCE PO Last administered on 08/20/16 16:48; Start 08/20/16 at 16:00; Stop 08/20/16 at 16:01; Status DC Mineral Oil (Fleet Mineral Oil) 133 ml 1X ONCE VT ; Start 08/21/16 at 20:00; Stop 08/21/16 at 20:00; Status DC Non-Formulary Medication 1 ea Q4H PO Last administered on 08/21/16 16:18; Start 08/21/16 at 12:00; Stop 08/21/16 at 16:01; Status DC Sodium Bicarbonate 50 meq Q6H IV Last administered on 08/21/16 20:16; Start 08/21/16 at 14:00; Stop 08/21/16 at 20:01; Status DC Warfarin Sodium (Coumadin) 3 mg 1X WARF ONCE PO Last administered on 08/21/16 16:16; Start 08/21/16 at 16:00; Stop 08/21/16 at 16:01; Status DC Active Scripts Active Entresto 24 mg-26 mg Tablet (Sacubitril/Valsartan) 1 Each Tablet 1 Tab PO BID Coumadin (Warfarin Sodium) 2.5 Mg Tablet 2.5 Mg PO DAILY16 Reported Reglan (Metoclopramide Hcl) 10 Mg Tablet 5 Mg PO PRN BID PRN Atorvastatin Calcium 40 Mg Tablet 1 Tab PO DAILY Colestid (Colestipol Hcl) 1 Gm Tablet 1 Gm PO TID Pacerone (Amiodarone Hcl) 200 Mg Tablet 200 Mg PO DAILY Lasix (Furosemide) 80 Mg Tablet 1 Tab PO BID Gabapentin 100 Mg Capsule 1 Cap PO TID Aspir 81 (Aspirin) 81 Mg Tablet.dr 1 Tab PO DAILY Coreg (Carvedilol) 6.25 Mg Tablet 1 Tab PO BID K-Tab ER (Potassium Chloride) 20 Meq Tablet.er 20 Meq PO BID Vitals/I & O Vital Sign - Last 24 Hours 08/21/16 08/21/16 08/21/16 08/21/16 14:56 16:17 19:22 20:00 Temp 98.5 98.6 98.5 98.6 Pulse 63 63 64 Resp 18 20 B/P 116/58 116/58 98/50 Pulse Ox 90 92 O2 Delivery Room Air Room Air Nasal Cannula O2 Flow Rate 1.0 08/21/16 08/22/16 08/22/16 08/22/16 23:05 03:27 07:44 10:01 Temp 98.0 97.4 97.9 98.0 97.4 97.9 Pulse 63 64 65 65 Resp 18 18 18 B/P 93/50 97/56 103/55 103/55 Pulse Ox 94 96 95 O2 Delivery Room Air Room Air Room Air 08/22/16 08/22/16 10:01 10:02 Temp 97.6 97.6 Pulse 68 68 Resp 20 B/P 98/59 98/59 Pulse Ox 96 O2 Delivery Room Air Intake and Output 08/21/16 08/21/16 08/22/16 15:00 23:00 07:00 Intake Total 220 ml 38.75 ml 300 ml Output Total 300 ml 250 ml Balance 220 ml -261.25 ml 50 ml HEATHER CHERRY MD Aug 22, 2016 12:39
[2016-08-22 14:34] VITALS: BP 93/59
[2016-08-22] MEDS ORDERED: WARFARIN 2.5 MG TABLET. PO ONE (16:00)
--- NOTE | 2016-08-22 16:02 | PDOC ---
Provider Note Provider Note RENAL F/U : ADIEL S : Feels OK. No new c/o No active CP or SOA. O : VSSAFberile. Alert. Neck ; Supple Lungs : Non labored. Decreased bases. CVS : RRR + S3 Abd : Porlty, sl distended. No masses. Non tender. Ext : Trace/stabl;e edema. Neuro ; Grossly intact. Labs, meds and I/Os : Reviewed. ARF/ATN. CKD / ESRD HTN w CKD CHF. ANEMIA of CKD. Labs stable. CPM. Start HD MOn. Pt moving to [place] w daughter. GABRIEL CHUN MD Aug 22, 2016 16:02
[2016-08-22 19:00] VITALS: BP 94/53
[2016-08-22] MEDS: ATORVASTATIN CALCIUM 40 MG TABLET. PO SCH (21:06)
[2016-08-22 23:00] VITALS: BP 91/57
[2016-08-23 03:00] VITALS: BP 97/60
[2016-08-23 07:07] LABS: INR 2.4 (0.8-1.1); PROTHROMBIN TIME PATIENT 24.6 SEC (11.7-14.0)
[2016-08-23 07:31] VITALS: BP 107/53
[2016-08-23] MEDS: INSULIN ASPART 300 UNITS/3 ML INSULN.PEN SQ SCH ×3 (08:00→17:00)
[2016-08-23] MEDS: AMIODARONE HCL 200 MG TABLET. PO SCH (09:00)
[2016-08-23 10:26] VITALS: BP 94/55
[2016-08-23] MEDS: ASPIRIN ENTERIC COATED 81 MG TABLET.DR. PO SCH (11:01)
[2016-08-23] MEDS: PANTOPRAZOLE 40 MG TABLET.DR. PO SCH (11:01)
[2016-08-23] MEDS: CEFPODOXIME PROXETIL 100 MG TABLET. PO SCH ×2 (11:01→21:24)
[2016-08-23] MEDS: SENNOSIDES/DOCUSATE 8.6/50MG TABLET. PO PRN (11:01)
[2016-08-23] MEDS: CARVEDILOL 6.25 MG TABLET. PO SCH ×2 (11:02→18:27)
--- NOTE | 2016-08-23 11:18 | PDOC ---
PROGRESS NOTES Subjective Subjective no new complaints Objective Objective Vital Signs Date Time Temp Pulse Resp B/P Pulse Ox O2 Delivery O2 Flow Rate FiO2 08/23/16 11:02 63 94/55 08/23/16 10:26 97.9 18 94 Room Air 97.9 08/23/16 07:31 2.0 Intake and Output 08/23/16 07:00 Intake Total 50 ml Output Total 810 ml Balance -760 ml Intake Oral 50 ml Output Urine Total 810 ml Physical Exam Abdomen: Soft, No tenderness Heart: Regular rate, Normal S1, Normal S2 Extremities: No clubbing, No edema General: Alert, Oriented X3, Cooperative HEENT: Atraumatic, PERRLA Lungs: Clear to auscultation MUSCULOSKELETAL: No joint tenderness, No deformity, No muscular tenderness noted Neck: Supple, Other (Right IJ cath placed. dressing is c/d/i) Neuro: Normal speech Psych/Mental Status: Mood NL Skin: No rashes, No significant lesion COMMENT cervantes placed Diagnosis Problem List Problems Medical Problems: (1) Acute on chronic renal failure Status: Acute Assessment Assessment * urinary retention. ac on crf. possible ATN 1. ARF with CKD II ATN SONA ,cr 2.9 no change from yesterday 2. a/c systolic CHF ICM EF 10% AICD 3. HTN 4. DM II with CKD II diet control 5. hyperlipidemia 6. mild to mod MR 7. moderate pulmonary HTN 8. severe weakness and debility 9. metabolic encephalopathy POA 10. moderate chronic PCL malnutrition PLAN:will check labs in am. renal going to make decision about dialysis tomorrow spoke with pt+daughter. want DNR , proceed with dialysis. want to take to [place] to stay with daughter. ? hospice down the road. vascular consult, dec circulation to feet both side worse on rt side cervantes placed for bladder retention. pt may need dialysis, cr 3.0 spoke with renal. Home with home health or SNU next week spoke with renal+rehab today today. Vantin for UTI,E Coli olive cath placement . d/c iv fluids ,no improvement CHF on dobutamine cardiology consult appreciated d/c enestro On IV Dobutamine. dec pulses on feet ,arterial doppler Problems: Plan Plan of Care Problems Medical Problems: (1) Acute on chronic renal failure Status: Acute Comment Review of Relevant I have reviewed the following items marquise (where applicable) has been applied. Labs Laboratory Tests Test 08/22/16 17:07 08/22/16 21:15 08/23/16 06:20 08/23/16 08:08 Glucose (Fingerstick) 127mg/dL (70-99) 155mg/dL (70-99) 106mg/dL (70-99) Prothrombin Time 24.6SEC (11.7-14.0) Prothromb Time International Ratio 2.4 (0.8-1.1) Microbiology 08/15/16 Urine Culture - Final, Complete 08/15/16 Urine Culture Result 1 (JV) - Final, Complete 08/15/16 Urine Culture Result 2 (JV) - Final, Complete 08/15/16 Antimicrobic Susceptibility - Final, Complete Medications Current Medications Warfarin Sodium (Coumadin) 2.5 mg 1X WARF ONCE PO Last administered on t 16:00; Start 08/22/16 at 16:00; Stop 08/22/16 at 16:01; Status DC Vitals/I & O Vital Sign - Last 24 Hours 08/22/16 08/22/16 08/22/16 08/22/16 14:34 17:00 19:00 20:00 Temp 97.9 98.4 97.9 98.4 Pulse 63 63 63 Resp 18 16 B/P 93/59 93/59 94/53 Pulse Ox 94 97 O2 Delivery Room Air Room Air Room Air 08/22/16 08/23/16 08/23/16 08/23/16 23:00 03:00 07:31 09:00 Temp 98.2 97.9 98.0 98.2 97.9 98.0 Pulse 62 63 60 63 Resp 16 16 18 B/P 91/57 97/60 107/53 94/55 Pulse Ox 99 97 O2 Delivery Room Air Nasal Cannula Nasal Cannula O2 Flow Rate 2.0 2.0 08/23/16 08/23/16 10:26 11:02 Temp 97.9 97.9 Pulse 63 63 Resp 18 B/P 94/55 94/55 Pulse Ox 94 O2 Delivery Room Air Intake and Output 08/22/16 08/22/16 08/23/16 15:00 23:00 07:00 Intake Total 50 ml Output Total 60 ml 750 ml Balance -10 ml -750 ml AFSHAN SLADE MD Aug 23, 2016 11:18
[2016-08-23 14:57] VITALS: BP 102/60
[2016-08-23] MEDS ORDERED: WARFARIN 3 MG TABLET. PO ONE (16:00)
--- NOTE | 2016-08-23 17:17 | PDOC ---
Provider Note Provider Note RENAL F/U : ADIEL S : Feels OK. No new c/o No active CP or SOA. O : VSSAFberile. Alert. Neck ; Supple Lungs : Non labored. Decreased bases. CVS : RRR + S3 Abd : Porlty, sl distended. No masses. Non tender. Ext : Trace/stabl;e edema. Neuro ; Grossly intact. Labs, meds and I/Os : Reviewed. ARF/ATN. CKD / ESRD HTN w CKD CHF. ANEMIA of CKD. Labs stable. CPM. Start HD in am. GABRIEL CHUN MD, HUSSAIN MD Aug 23, 2016 17:17
[2016-08-23 19:30] VITALS: BP 84/48
[2016-08-23] MEDS: ATORVASTATIN CALCIUM 40 MG TABLET. PO SCH (21:24)
[2016-08-23 23:52] VITALS: BP 101/53
[2016-08-24 03:40] VITALS: BP 97/46
[2016-08-24 04:51] LABS: BASO % 1 % (0-3); EOS % 2 % (0-3); HEMATOCRIT 29.9 % (39.0-53.0); HEMOGLOBIN 9.5 g/dL (13.0-17.5); LYMPH # 0.5 x10^3/uL (1.0-4.8); LYMPH % 10 % (24-48); MEAN CORPUSCULAR HEMOGLOBIN 25 pg (25-35); MEAN CORPUSCULAR HGB CONC 32 g/dL (31-37); MEAN CORPUSCULAR VOLUME 80 fL (79-100); MONO % 11 % (0-9); NEUT % 77 % (31-73); PLATELET COUNT 125 x10^3/uL (140-400); RED BLOOD COUNT 3.76 x10^6/uL (4.30-5.70); RED CELL DISTRIBUTION WIDTH 19.9 % (11.5-14.5); WHITE BLOOD COUNT 5.5 x10^3/uL (4.0-11.0)
[2016-08-24 04:57] LABS: INR 1.9 (0.8-1.1)
[2016-08-24 05:06] LABS: GFR 24.9
[2016-08-24 07:52] VITALS: BP 90/54
[2016-08-24] MEDS: INSULIN ASPART 300 UNITS/3 ML INSULN.PEN SQ SCH ×3 (08:00→17:00)
[2016-08-24] MEDS: ONDANSETRON PF 4 MG/2 ML VIAL. IV PRN ×2 (09:18→18:09)
[2016-08-24] MEDS: PANTOPRAZOLE 40 MG TABLET.DR. PO SCH (09:23)
[2016-08-24] MEDS: ASPIRIN ENTERIC COATED 81 MG TABLET.DR. PO SCH (09:23)
[2016-08-24] MEDS: AMIODARONE HCL 200 MG TABLET. PO SCH (09:24)
[2016-08-24] MEDS: CEFPODOXIME PROXETIL 100 MG TABLET. PO SCH ×2 (09:24→20:59)
[2016-08-24] MEDS: CARVEDILOL 6.25 MG TABLET. PO SCH ×2 (09:25→18:08)
--- NOTE | 2016-08-24 09:54 | PDOC ---
PROGRESS NOTES Subjective Subjective pt wanted DNR Objective Objective Vital Signs Date Time Temp Pulse Resp B/P Pulse Ox O2 Delivery O2 Flow Rate FiO2 08/24/16 09:25 90/54 08/24/16 09:24 65 08/24/16 07:52 97.3 20 94 Room Air 97.3 08/23/16 20:15 1.0 Intake and Output 08/24/16 07:00 Intake Total 250 ml Output Total 400 ml Balance -150 ml Intake Oral 250 ml Output Urine Total 400 ml # Bowel Movements 1 Physical Exam Abdomen: Soft, No tenderness Heart: Regular rate, Normal S1, Normal S2 Extremities: No clubbing, No edema General: Alert, Oriented X3, Cooperative HEENT: Atraumatic, PERRLA Lungs: Clear to auscultation MUSCULOSKELETAL: No joint tenderness, No deformity, No muscular tenderness noted Neck: Supple, Other (Right IJ cath placed. dressing is c/d/i) Neuro: Normal speech Psych/Mental Status: Mood NL Skin: No rashes, No significant lesion COMMENT cervantes present Diagnosis Problem List Problems Medical Problems: (1) Acute on chronic renal failure Status: Acute Assessment Assessment * urinary retention. ac on crf. possible ATN 1. ARF with CKD II ATN SONA ,cr 2.9 no change from yesterday 2. a/c systolic CHF ICM EF 10% AICD 3. HTN 4. DM II with CKD II diet control 5. hyperlipidemia 6. mild to mod MR 7. moderate pulmonary HTN 8. severe weakness and debility 9. metabolic encephalopathy POA 10. moderate chronic PCL malnutrition PLAN:spoke with renal, plans to place temp dialysis catheter today and start dialysis today DNR ordered signed, as requested by the pt. 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 want DNR , proceed with dialysis. want to take to [place] to stay with daughter. ? hospice down the road. vascular consult, dec circulation to feet both side worse on rt side cervantes placed for bladder retention. pt may need dialysis, cr 3.0 Home with home health or SNU next week spoke with renal+rehab today today. Vantin for UTI,E Coli olive cath placement . d/c iv fluids ,no improvement CHF on dobutamine cardiology consult appreciated d/c enestro poor long term acute care registered nurse prognosis. do not want anything done for leg circulation at this time dec pulses on feet ,arterial doppler Problems: Plan Plan of Care Problems Medical Problems: (1) Acute on chronic renal failure Status: Acute Comment Review of Relevant I have reviewed the following items marquise (where applicable) has been applied. Labs Laboratory Tests Test 08/23/16 11:17 08/23/16 20:44 08/24/16 03:30 08/24/16 07:58 Glucose (Fingerstick) 132mg/dL (70-99) 125mg/dL (70-99) 140mg/dL (70-99) White Blood Count 5.5x10^3/uL (4.0-11.0) Red Blood Count 3.76x10^6/uL (4.30-5.70) Hemoglobin 9.5g/dL (13.0-17.5) Hematocrit 29.9% (39.0-53.0) Mean Corpuscular Volume 80fL (79-100) Mean Corpuscular Hemoglobin 25pg (25-35) Mean Corpuscular Hemoglobin Concent 32g/dL (31-37) Red Cell Distribution Width 19.9% (11.5-14.5) Platelet Count 125x10^3/uL (140-400) Neutrophils (%) (Auto) 77% (31-73) Lymphocytes (%) (Auto) 10% (24-48) Monocytes (%) (Auto) 11% (0-9) Eosinophils (%) (Auto) 2% (0-3) Basophils (%) (Auto) 1% (0-3) Neutrophils # (Auto) 4.2x10^3uL (1.8-7.7) Lymphocytes # (Auto) 0.5x10^3/uL (1.0-4.8) Monocytes # (Auto) 0.6x10^3/uL (0.0-1.1) Eosinophils # (Auto) 0.1x10^3/uL (0.0-0.7) Basophils # (Auto) 0.0x10^3/uL (0.0-0.2) Prothrombin Time 21.0SEC (11.7-14.0) Prothromb Time International Ratio 1.9 (0.8-1.1) Sodium Level 135mmol/L (136-145) Potassium Level 4.0mmol/L (3.5-5.1) Chloride Level 101mmol/L (98-107) Carbon Dioxide Level 22mmol/L (21-32) Anion Gap 12 (6-14) Blood Urea Nitrogen 104mg/dL (8-26) Creatinine 3.0mg/dL (0.7-1.3) Estimated GFR (Cockcroft-Gault) 24.9 Glucose Level 141mg/dL (70-99) Calcium Level 8.0mg/dL (8.5-10.1) Microbiology 08/15/16 Urine Culture - Final, Complete 08/15/16 Urine Culture Result 1 (JV) - Final, Complete 08/15/16 Urine Culture Result 2 (JV) - Final, Complete 08/15/16 Antimicrobic Susceptibility - Final, Complete Medications Current Medications Warfarin Sodium (Coumadin) 3 mg 1X WARF ONCE PO Last administered on 08/23/16t 18:28; Start 08/23/16 at 16:00; Stop 08/23/16 at 16:01; Status DC Vitals/I & O Vital Sign - Last 24 Hours 08/23/16 08/23/16 08/23/16 08/23/16 10:26 11:02 14:57 18:27 Temp 97.9 98.0 97.9 98.0 Pulse 63 63 60 60 Resp 18 20 B/P 94/55 94/55 102/60 102/60 Pulse Ox 94 91 O2 Delivery Room Air Room Air 08/23/16 08/23/16 08/23/16 08/24/16 19:30 20:15 23:52 03:40 Temp 97.9 97.9 98.1 97.9 97.9 98.1 Pulse 60 61 63 Resp 20 20 18 B/P 84/48 101/53 97/46 Pulse Ox 92 100 96 O2 Delivery Room Air Nasal Cannula Room Air Room Air O2 Flow Rate 1.0 08/24/16 08/24/16 08/24/16 07:52 09:24 09:25 Temp 97.3 97.3 Pulse 63 65 Resp 20 B/P 90/54 90/54 Pulse Ox 94 O2 Delivery Room Air Intake and Output 08/23/16 08/23/16 08/24/16 15:00 23:00 07:00 Intake Total 0 ml 250 ml Output Total 200 ml 200 ml Balance -200 ml 50 ml AFSHAN SLADE MD Aug 24, 2016 09:54
--- NOTE | 2016-08-24 10:09 | CONS ---
DATE OF CONSULTATION: 08/21/2016 REASON FOR CONSULTATION: Right heel ulcer with vascular disease. HISTORY OF PRESENT ILLNESS: This is a 71-year-old female who was admitted with renal failure straight from Dr. Campbell's office. Her creatinine I think on admission was like 3.8. She is on Coumadin anticoagulation as well and her INR was low. We were asked to see her after that she developed a right heel ulcer. Her arterial Doppler showed occlusion of all tibial vessels in the right lower extremity. An occlusion of the dorsalis pedis on the left side. She has had no prior arterial interventions. PAST MEDICAL HISTORY: She has a pacemaker. Only other operation was tubal and then a cholecystectomy remotely. Illnesses, include her diabetes, renal insufficiency and congestive heart failure with ejection fraction of 10%. ALLERGIES: IODINE. MEDICATIONS: Include Coumadin and aspirin 81 mg daily. PHYSICAL EXAMINATION: GENERAL: Pleasant female, in no severe distress. NECK: 2+ carotids, 2+ brachial pulses. CARDIOVASCULAR: Heart rate is regular. LUNGS: Nonlabored respirations. ABDOMEN: She got palpable femoral pulses, but I could not palpate popliteal or pedal pulses on either side. EXTREMITIES: Her both lower legs are in Curtis splints and left mainly for protection to present on heel ulcer of the right, because she does have a heel ulcer and this looks like it is a stage I or stage 2 heel, kind of boggy without severe eschar at this point in time. IMPRESSION: Limb threatening ischemia of right lower extremity with a pressure ulcer and very poor arterial circulation. PLAN: Continue Curtis splint for protection, she eventually would need angiographic evaluation to see if something to be done to improve her circulation, but her creatinine is so bad, we could not it at the present time. However, we might have Dr. Dumont do a carbon dioxide arteriogram with limited dye down the right leg if her creatinine improves as a little bit. We will keep an eye on the protime as well. We will recheck her over the weekend. Thank you for allowing us to see her. PIERRE MENDES MD DR: RUBI/david JOB#: [id number] / [id number]
--- NOTE | 2016-08-24 10:47 | PDOC ---
PROGRESS NOTES Subjective Subjective No new complaints. Objective Objective Vital Signs Date Time Temp Pulse Resp B/P Pulse Ox O2 Delivery O2 Flow Rate FiO2 08/24/16 09:25 90/54 08/24/16 09:24 65 08/24/16 07:52 97.3 20 94 Room Air 97.3 08/23/16 20:15 1.0 Intake and Output 08/24/16 07:00 Intake Total 250 ml Output Total 400 ml Balance -150 ml Intake Oral 250 ml Output Urine Total 400 ml # Bowel Movements 1 Physical Exam Physical Exam She is comfortable supine in bed and waiting for dialysis to be started. Assessment Assessment Problems Medical Problems: (1) Acute on chronic renal failure Status: Acute Plan Plan of Care Agree with plans. Comment Review of Relevant I have reviewed the following items marquise (where applicable) has been applied. Labs Laboratory Tests Test 08/22/16 11:10 08/22/16 17:07 08/22/16 21:15 08/23/16 06:20 Glucose (Fingerstick) 104mg/dL (70-99) 127mg/dL (70-99) 155mg/dL (70-99) Prothrombin Time 24.6SEC (11.7-14.0) Prothromb Time International Ratio 2.4 (0.8-1.1) Test 08/23/16 08:08 08/23/16 11:17 08/23/16 20:44 08/24/16 03:30 Glucose (Fingerstick) 106mg/dL (70-99) 132mg/dL (70-99) 125mg/dL (70-99) White Blood Count 5.5x10^3/uL (4.0-11.0) Red Blood Count 3.76x10^6/uL (4.30-5.70) Hemoglobin 9.5g/dL (13.0-17.5) Hematocrit 29.9% (39.0-53.0) Mean Corpuscular Volume 80fL (79-100) Mean Corpuscular Hemoglobin 25pg (25-35) Mean Corpuscular Hemoglobin Concent 32g/dL (31-37) Red Cell Distribution Width 19.9% (11.5-14.5) Platelet Count 125x10^3/uL (140-400) Neutrophils (%) (Auto) 77% (31-73) Lymphocytes (%) (Auto) 10% (24-48) Monocytes (%) (Auto) 11% (0-9) Eosinophils (%) (Auto) 2% (0-3) Basophils (%) (Auto) 1% (0-3) Neutrophils # (Auto) 4.2x10^3uL (1.8-7.7) Lymphocytes # (Auto) 0.5x10^3/uL (1.0-4.8) Monocytes # (Auto) 0.6x10^3/uL (0.0-1.1) Eosinophils # (Auto) 0.1x10^3/uL (0.0-0.7) Basophils # (Auto) 0.0x10^3/uL (0.0-0.2) Prothrombin Time 21.0SEC (11.7-14.0) Prothromb Time International Ratio 1.9 (0.8-1.1) Sodium Level 135mmol/L (136-145) Potassium Level 4.0mmol/L (3.5-5.1) Chloride Level 101mmol/L (98-107) Carbon Dioxide Level 22mmol/L (21-32) Anion Gap 12 (6-14) Blood Urea Nitrogen 104mg/dL (8-26) Creatinine 3.0mg/dL (0.7-1.3) Estimated GFR (Cockcroft-Gault) 24.9 Glucose Level 141mg/dL (70-99) Calcium Level 8.0mg/dL (8.5-10.1) Test 08/24/16 07:58 Glucose (Fingerstick) 140mg/dL (70-99) Laboratory Tests Test 08/23/16 11:17 08/23/16 20:44 08/24/16 03:30 08/24/16 07:58 Glucose (Fingerstick) 132mg/dL (70-99) 125mg/dL (70-99) 140mg/dL (70-99) White Blood Count 5.5x10^3/uL (4.0-11.0) Red Blood Count 3.76x10^6/uL (4.30-5.70) Hemoglobin 9.5g/dL (13.0-17.5) Hematocrit 29.9% (39.0-53.0) Mean Corpuscular Volume 80fL (79-100) Mean Corpuscular Hemoglobin 25pg (25-35) Mean Corpuscular Hemoglobin Concent 32g/dL (31-37) Red Cell Distribution Width 19.9% (11.5-14.5) Platelet Count 125x10^3/uL (140-400) Neutrophils (%) (Auto) 77% (31-73) Lymphocytes (%) (Auto) 10% (24-48) Monocytes (%) (Auto) 11% (0-9) Eosinophils (%) (Auto) 2% (0-3) Basophils (%) (Auto) 1% (0-3) Neutrophils # (Auto) 4.2x10^3uL (1.8-7.7) Lymphocytes # (Auto) 0.5x10^3/uL (1.0-4.8) Monocytes # (Auto) 0.6x10^3/uL (0.0-1.1) Eosinophils # (Auto) 0.1x10^3/uL (0.0-0.7) Basophils # (Auto) 0.0x10^3/uL (0.0-0.2) Prothrombin Time 21.0SEC (11.7-14.0) Prothromb Time International Ratio 1.9 (0.8-1.1) Sodium Level 135mmol/L (136-145) Potassium Level 4.0mmol/L (3.5-5.1) Chloride Level 101mmol/L (98-107) Carbon Dioxide Level 22mmol/L (21-32) Anion Gap 12 (6-14) Blood Urea Nitrogen 104mg/dL (8-26) Creatinine 3.0mg/dL (0.7-1.3) Estimated GFR (Cockcroft-Gault) 24.9 Glucose Level 141mg/dL (70-99) Calcium Level 8.0mg/dL (8.5-10.1) Microbiology 08/15/16 Urine Culture - Final, Complete 08/15/16 Urine Culture Result 1 (JV) - Final, Complete 08/15/16 Urine Culture Result 2 (JV) - Final, Complete 08/15/16 Antimicrobic Susceptibility - Final, Complete Medications Current Medications Insulin Aspart (Novolog) 0-5 UNITS TIDWMEALS SQ ; Start 08/14/16 at 17:30 Dextrose 12.5 gm 12.5 gm PRN Q15MIN PRN IV SEE COMMENTS; Start 08/14/16 at 16: 45 Sodium Chloride (Iv Sodium Chloride 0.9% 1000ml Bag) 1,000 ml @ 100 mls/hr Q10H IV Last administered on 08/14/16 18:53; Start 08/14/16 at 17:30; Stop 08/15/16 at 03:29; Status DC Amiodarone HCl (Cordarone) 200 mg DAILY PO Last administered on 08/24/16 09:24 ; Start 08/15/16 at 09:00 Aspirin (Ecotrin) 81 mg DAILY PO Last administered on 08/24/16 09:23; Start at 09:00 Atorvastatin Calcium (Lipitor) 40 mg QHS PO Last administered on 08/23/16 21:24 ; Start 08/14/16 at 21:00 Carvedilol (Coreg) 6.25 mg BIDWMEALS PO Last administered on 08/24/16 09:25; Start 08/14/16 at 17:30 Colestipol HCl (Colestid) 1 gm TID PO Last administered on 08/17/16 20:55; Start 08/14/16 at 21:00; Stop 08/18/16 at 10:08; Status DC Metoclopramide HCl (Reglan) 5 mg PRN BID PRN PO NAUSEA; Start 08/14/16 at 16:45 ; Stop 08/16/16 at 10:25; Status DC Sacubitril/ Valsartan (Entresto 24 Mg-26 Mg) 1 tab BID PO Last administered on 08/17/16 09:14; Start 08/14/16 at 21:00; Stop 08/17/16 at 10:16; Status DC Warfarin Sodium (Coumadin) 2.5 mg DAILY16 PO Last administered on 08/14/16 18: 50; Start 08/14/16 at 18:00; Stop 08/15/16 at 14:13; Status DC Warfarin Sodium (Coumadin Per Physician) 1 each PRN DAILY PRN MC SEE COMMENTS; Start 08/14/16 at 17:15; Stop 08/15/16 at 09:54; Status DC Sodium Polystyrene Sulfonate (Kayexalate) 60 gm 1X ONCE PO Last administered on 08/14/16 18:51; Start 08/14/16 at 18:30; Stop 08/14/16 at 18:31; Status DC Warfarin Sodium (Coumadin Per Pharmacy) 1 each PRN DAILY PRN MC SEE COMMENTS Last administered on 08/23/16 14:18; Start 08/15/16 at 10:00 Pantoprazole Sodium 40 mg 40 mg DAILYAC PO Last administered on 08/24/16 09:23 ; Start 08/15/16 at 11:30 Dobutamine HCl/ Dextrose 250 ml @ 0 mls/hr CONT PRN IV ; Start 08/15/16 at 14:00 ; Stop 08/15/16 at 14:53; Status DC Albumin Human (Albuminar) 100 ml @ 100 mls/hr 1X ONCE IV Last administered on 08/15/16 15:25; Start 08/15/16 at 14:00; Stop 08/15/16 at 14:59; Status DC Furosemide 40 mg 40 mg 1X ONCE IVP Last administered on 08/15/16 16:22; Start 08/15/16 at 15:00; Stop 08/15/16 at 15:01; Status DC Albumin Human (Albuminar) 100 ml @ 100 mls/hr 1X ONCE IV Last administered on 08/16/16 08:41; Start 08/16/16 at 09:00; Stop 08/16/16 at 09:59; Status DC Furosemide (Lasix) 40 mg 1X ONCE IVP Last administered on 08/16/16 09:45; Start 08/16/16 at 10:00; Stop 08/16/16 at 10:01; Status DC Warfarin Sodium 4 mg 4 mg 1X WARF ONCE PO Last administered on 08/15/16 16:33 ; Start 08/15/16 at 16:00; Stop 08/15/16 at 16:01; Status DC Dobutamine HCl/ Dextrose 250 ml @ 0 mls/hr CONT PRN PRN IV SEE I/O RECORD Last administered on 08/23/16 11:01; Start 08/15/16 at 14:53 Sodium Bicarbonate 50 meq 50 meq Q2HR IV Last administered on 08/15/16 18:20; Start 08/15/16 at 16:00; Stop 08/15/16 at 18:30; Status DC Magnesium Sulfate/ Dextrose (Magnesium Sulfate PREMIX 2GM) 50 ml @ 25 mls/hr PRN DAILY PRN IV for Mag < 1.7 on am labs; Start 08/15/16 at 15:30 Warfarin Sodium (Coumadin) 4 mg 1X WARF ONCE PO Last administered on 08/16/16 17:28; Start 08/16/16 at 16:00; Stop 08/16/16 at 16:01; Status DC Ondansetron HCl 4 mg 4 mg PRN Q6HRS PRN IV nausea Last administered on 09:18; Start 08/16/16 at 20:30 Ceftriaxone Sodium 1 gm/ Sodium Chloride 50 ml @ 100 mls/hr Q24H IV Last administered on 08/19/16 10:00; Start 08/17/16 at 10:00; Stop 08/19/16 at 12:56; Status DC Sodium Chloride (Iv Sodium Chloride 0.9% 1000ml Bag) 1,000 ml @ 75 mls/hr [id number] IV Last administered on 08/19/16 16:58; Start 08/17/16 at 10:15; Stop at 09:27; Status DC Warfarin Sodium (Coumadin) 5 mg 1X WARF ONCE PO ; Start 08/17/16 at 16:00; Stop 08/17/16 at 16:01; Status DC Heparin Sodium/ Sodium Chloride 1,000 unit 1X ONCE IART Last administered on 11:45; Start 08/18/16 at 11:30; Stop 08/18/16 at 11:31; Status DC Midazolam HCl (Versed) 2 mg 1X ONCE IV Last administered on 08/18/16 11:46; Start 08/18/16 at 11:30; Stop 08/18/16 at 11:31; Status DC Fentanyl Citrate (Fentanyl 2ml Vial) 100 mcg 1X ONCE IV Last administered on 11:47; Start 08/18/16 at 11:30; Stop 08/18/16 at 11:31; Status DC Lidocaine/ Epinephrine 15 ml 15 ml 1X ONCE IJ Last administered on 08/18/16 11 :44; Start 08/18/16 at 11:30; Stop 08/18/16 at 11:31; Status DC Vancomycin HCl 250 ml @ 250 mls/hr 1X ONCE IRR Last administered on 08/18/16 11:45; Start 08/18/16 at 11:30; Stop 08/18/16 at 12:29; Status DC Heparin Sodium (Porcine) (Hep Lock Adult) 500 unit 1X ONCE IV Last administered on 08/18/16 11:46; Start 08/18/16 at 11:30; Stop 08/18/16 at 11:31; Status DC Heparin Sodium (Porcine) (Hep Lock Adult) 500 unit STK-MED ONCE IV ; Start at 09:29; Stop 08/18/16 at 11:42; Status DC Lidocaine/ Epinephrine 20 ml 20 ml STK-MED ONCE .ROUTE ; Start 08/18/16 at 09:29 ; Stop 08/18/16 at 11:42; Status DC Heparin Sodium/ Sodium Chloride 500 ml @ As Directed STK-MED ONCE .ROUTE ; Start 08/18/16 at 09:29; Stop 08/18/16 at 11:42; Status DC Vancomycin HCl 250 ml @ As Directed STK-MED ONCE .ROUTE ; Start 08/18/16 at 09: 29; Stop 08/18/16 at 11:42; Status DC Fentanyl Citrate (Fentanyl 2ml Vial) 100 mcg STK-MED ONCE .ROUTE ; Start at 10:29; Stop 08/18/16 at 11:43; Status DC Midazolam HCl 2 mg 2 mg STK-MED ONCE .ROUTE ; Start 08/18/16 at 10:30; Stop at 11:43; Status DC Iron Sucrose/ Sodium Chloride (Venofer/Iv Sodium Chloride 0.9% 100ml) 110 ml @ 55 mls/hr 3X/WEEK IV Last administered on 08/21/16 10:28; Start 08/19/16 at 09: 00; Stop 08/28/16 at 10:59 Warfarin Sodium (Coumadin) 5 mg 1X WARF ONCE PO Last administered on 08/18/16 17:56; Start 08/18/16 at 16:00; Stop 08/18/16 at 16:01; Status DC Warfarin Sodium (Coumadin) 3 mg 1X WARF ONCE PO ; Start 08/19/16 at 16:00; Stop 08/19/16 at 16:01; Status Cancel Cefpodoxime Proxetil (Vantin) 100 mg BID PO Last administered on 08/24/16 09: 24; Start 08/19/16 at 21:00 Warfarin Sodium (Coumadin) 2.5 mg 1X WARF ONCE PO Last administered on 16:59; Start 08/19/16 at 16:00; Stop 08/19/16 at 16:01; Status DC Senna/Docusate Sodium 1 tab 1 tab PRN BID PRN PO CONSTIPATION Last administered on 08/20/16 14:18; Start 08/19/16 at 13:30; Stop 08/20/16 at 14:43; Status DC Sodium Chloride 250 ml @ 0 mls/hr 1X ONCE IV Last administered on 08/19/16 14: 33; Start 08/19/16 at 13:45; Stop 08/19/16 at 13:53; Status DC Sodium Chloride (Iv Sodium Chloride 0.9% 500ml Bag) 500 ml @ 0 mls/hr 1X ONCE IV Last administered on 08/19/16 16:58; Start 08/19/16 at 16:00; Stop 08/19/16 at 16:01; Status DC Senna/Docusate Sodium (Senna Plus) 1 tab PRN BID PRN PO CONSTIPATION Last administered on 08/23/16 11:01; Start 08/20/16 at 10:00 Bisacodyl (Dulcolax Supp) 10 mg 1X ONCE DE ; Start 08/20/16 at 11:00; Stop at 11:00; Status DC Bisacodyl (Dulcolax Supp) 10 mg 1X ONCE DE Last administered on 08/20/16 16:49 ; Start 08/20/16 at 14:30; Stop 08/20/16 at 14:31; Status DC Warfarin Sodium (Coumadin) 2 mg 1X WARF ONCE PO Last administered on 08/20/16 16:48; Start 08/20/16 at 16:00; Stop 08/20/16 at 16:01; Status DC Mineral Oil (Fleet Mineral Oil) 133 ml 1X ONCE DE ; Start 08/21/16 at 20:00; Stop 08/21/16 at 20:00; Status DC Non-Formulary Medication 1 ea Q4H PO Last administered on 08/21/16 16:18; Start 08/21/16 at 12:00; Stop 08/21/16 at 16:01; Status DC Sodium Bicarbonate 50 meq Q6H IV Last administered on 08/21/16 20:16; Start 08/21/16 at 14:00; Stop 08/21/16 at 20:01; Status DC Warfarin Sodium (Coumadin) 3 mg 1X WARF ONCE PO Last administered on 08/21/16 16:16; Start 08/21/16 at 16:00; Stop 08/21/16 at 16:01; Status DC Warfarin Sodium (Coumadin) 2.5 mg 1X WARF ONCE PO Last administered on 16:00; Start 08/22/16 at 16:00; Stop 08/22/16 at 16:01; Status DC Warfarin Sodium (Coumadin) 3 mg 1X WARF ONCE PO Last administered on 08/23/16 18:28; Start 08/23/16 at 16:00; Stop 08/23/16 at 16:01; Status DC Active Scripts Active Entresto 24 mg-26 mg Tablet (Sacubitril/Valsartan) 1 Each Tablet 1 Tab PO BID Coumadin (Warfarin Sodium) 2.5 Mg Tablet 2.5 Mg PO DAILY16 Reported Reglan (Metoclopramide Hcl) 10 Mg Tablet 5 Mg PO PRN BID PRN Atorvastatin Calcium 40 Mg Tablet 1 Tab PO DAILY Colestid (Colestipol Hcl) 1 Gm Tablet 1 Gm PO TID Pacerone (Amiodarone Hcl) 200 Mg Tablet 200 Mg PO DAILY Lasix (Furosemide) 80 Mg Tablet 1 Tab PO BID Gabapentin 100 Mg Capsule 1 Cap PO TID Aspir 81 (Aspirin) 81 Mg Tablet.dr 1 Tab PO DAILY Coreg (Carvedilol) 6.25 Mg Tablet 1 Tab PO BID K-Tab ER (Potassium Chloride) 20 Meq Tablet.er 20 Meq PO BID Vitals/I & O Vital Sign - Last 24 Hours 08/23/16 08/23/16 08/23/16 08/23/16 11:02 14:57 18:27 19:30 Temp 98.0 97.9 98.0 97.9 Pulse 63 60 60 60 Resp 20 20 B/P 94/55 102/60 102/60 84/48 Pulse Ox 91 92 O2 Delivery Room Air Room Air 08/23/16 08/23/16 08/24/16 08/24/16 20:15 23:52 03:40 07:52 Temp 97.9 98.1 97.3 97.9 98.1 97.3 Pulse 61 63 63 Resp 20 18 20 B/P 101/53 97/46 90/54 Pulse Ox 100 96 94 O2 Delivery Nasal Cannula Room Air Room Air Room Air O2 Flow Rate 1.0 08/24/16 08/24/16 09:24 09:25 Pulse 65 B/P 90/54 Intake and Output 08/23/16 08/23/16 08/24/16 15:00 23:00 07:00 Intake Total 0 ml 250 ml Output Total 200 ml 200 ml Balance -200 ml 50 ml MADDIE AMBROSE MD Aug 24, 2016 10:47
[2016-08-24] MEDS ORDERED: LIDOCAINE 2%/EPI 1:100,000 20 ML VIAL. ONE (10:54)
[2016-08-24] MEDS ORDERED: HEPARIN for IV BOLUS 10,000 UNIT/10 ML VIAL. ONE (10:54)
--- NOTE | 2016-08-24 10:56 | PDOC ---
Renal-Progress Notes Subjective Notes Notes NONE History of Present Illness Hx of present illness NO CHANGE Vitals Vitals Vital Signs Date Time Temp Pulse Resp B/P Pulse Ox O2 Delivery O2 Flow Rate FiO2 08/24/16 09:25 90/54 08/24/16 09:24 65 08/24/16 07:52 97.3 20 94 Room Air 97.3 08/23/16 20:15 1.0 Weight Weight [ ] I.O. Intake and Output Intake and Output 08/24/16 07:00 Intake Total 250 ml Output Total 400 ml Balance -150 ml Intake Oral 250 ml Output Urine Total 400 ml # Bowel Movements 1 Labs Labs Laboratory Tests Test 08/23/16 11:17 08/23/16 20:44 08/24/16 03:30 08/24/16 07:58 Glucose (Fingerstick) 132mg/dL (70-99) 125mg/dL (70-99) 140mg/dL (70-99) White Blood Count 5.5x10^3/uL (4.0-11.0) Red Blood Count 3.76x10^6/uL (4.30-5.70) Hemoglobin 9.5g/dL (13.0-17.5) Hematocrit 29.9% (39.0-53.0) Mean Corpuscular Volume 80fL (79-100) Mean Corpuscular Hemoglobin 25pg (25-35) Mean Corpuscular Hemoglobin Concent 32g/dL (31-37) Red Cell Distribution Width 19.9% (11.5-14.5) Platelet Count 125x10^3/uL (140-400) Neutrophils (%) (Auto) 77% (31-73) Lymphocytes (%) (Auto) 10% (24-48) Monocytes (%) (Auto) 11% (0-9) Eosinophils (%) (Auto) 2% (0-3) Basophils (%) (Auto) 1% (0-3) Neutrophils # (Auto) 4.2x10^3uL (1.8-7.7) Lymphocytes # (Auto) 0.5x10^3/uL (1.0-4.8) Monocytes # (Auto) 0.6x10^3/uL (0.0-1.1) Eosinophils # (Auto) 0.1x10^3/uL (0.0-0.7) Basophils # (Auto) 0.0x10^3/uL (0.0-0.2) Prothrombin Time 21.0SEC (11.7-14.0) Prothromb Time International Ratio 1.9 (0.8-1.1) Sodium Level 135mmol/L (136-145) Potassium Level 4.0mmol/L (3.5-5.1) Chloride Level 101mmol/L (98-107) Carbon Dioxide Level 22mmol/L (21-32) Anion Gap 12 (6-14) Blood Urea Nitrogen 104mg/dL (8-26) Creatinine 3.0mg/dL (0.7-1.3) Estimated GFR (Cockcroft-Gault) 24.9 Glucose Level 141mg/dL (70-99) Calcium Level 8.0mg/dL (8.5-10.1) Micro Micro Microbiology 08/15/16 Urine Culture - Final, Complete 08/15/16 Urine Culture Result 1 (JV) - Final, Complete 08/15/16 Urine Culture Result 2 (JV) - Final, Complete 08/15/16 Antimicrobic Susceptibility - Final, Complete Review of Systems Constitutional: yes: alert, oriented, weakness Ears/Nose/Throat: Yes: no symptom reported Eyes: Yes: no symptom reported Pulmonary: Yes no symptom reported Gastrointestional: Yes: no symptom reported Genitourinary: Yes: retention Musculoskeletal: Yes: no symptom reported Skin: Yes no symptom reported Physical Exam General Appearance: no apparent distress Skin: warm Respiratory: bilateral CTA Heart: S1S2, no thrills Abdomen: GT edema Extremities: pulses present, no edema Neurology: alert Assessment Assessment IMP ESRD ANEMIA URINARY RETENTION HYPOTONIC BLADDER PLAN CONT RASHI WILL HAVE IR PLACE TDC TODAY FIRST HD TOMORROW CHECK HEP PANEL MAINTAIN VALDEZ PT WANTS TO MOVE TO [place] HAVE D/W CM TO SET UP OP HD IN [place] D/W ROSSANA PENDLETON MD Aug 24, 2016 10:56
[2016-08-24] MEDS ORDERED: fentaNYL PF VIAL 100 MCG/2 ML VIAL ONE ×2 (11:26→11:58)
[2016-08-24] MEDS ORDERED: MIDAZOLAM HCL/PF 2 MG/2 ML VIAL. ONE ×2 (11:26→11:58)
[2016-08-24] MEDS ORDERED: LIDOCAINE 2%/EPI 1:100,000 20 ML VIAL. IJ ONE (11:45)
[2016-08-24] MEDS ORDERED: HEPARIN for IV BOLUS 10,000 UNIT/10 ML VIAL. IV ONE (12:15)
[2016-08-24] MEDS ORDERED: MIDAZOLAM HCL/PF 2 MG/2 ML VIAL. IV ONE (12:30)
[2016-08-24] MEDS ORDERED: fentaNYL PF VIAL 100 MCG/2 ML VIAL IV ONE (12:30)
--- NOTE | 2016-08-24 12:31 | PDOC ---
MODERATE SEDATION ASSESSMENT RISKS/ALTERNATIVES Risks/Alternatives Risks and alternatives of this type of sedation and procedure discussed with: RISK/ALTERNATIVES: Patient H & P ON CHART H & P H & P on chart and reviewed for co-morbid conditions and appropriate labs. H&P ON CHART: Yes STATUS PREG STATUS ASSESSED: N/A MEDS/ALLERGIES REVIEWED Meds/Allergies Reviewed Medications and Allergies including time and route of recently administered narcotics and sedatives. MEDS/ALLERGIES REVIEWED: Yes ASA RATING ASA RATING: III AIRWAY ASSESSMENT Airway Assessment Airway patency, oral function limitations, presence of caps, crowns, dentures, partials, and ability to extend neck assessed. AIRWAY ASSESSMENT: Yes MALLAMPATI SCORE MALLAMPATI SCORE: II PRE-SEDATION ASSESSMENT PRE-SEDATION ASSESSMENT: Yes MORE LIPSCOMB MD Aug 24, 2016 12:31
--- NOTE | 2016-08-24 12:34 | PDOC ---
Exam Dobby Loom Weaver Dobby Loom Weaver [employer] Worker Cathy Royal Pre-Procedure Diagnosis Pre-Procedure Diagnosis New ESRD. Tunneled HDC insertion requested by Renal Post-Procedure Diagnosis Post-Procedure Diagnosis Same Procedure Performed Procedure Performed Sono/fluoro guided tunneled HDC insertion. Type of Anesthesia Type of Anesthesia Local + Mod sedation Estimated Blood Loss EBL: Minimal Drain/Tubes Drains/Tubes Right IJ 15.5F 28cm DuraMax tunneled HDC Condition of Patient Condition of Patient Stable. No apparent complication. Disposition Disposition From IR return to 256 for recovery. F/U with Dr Garcia, Renal, and Cardiology. OK to use tunneled HDC Full report to follow. MORE LIPSCOMB MD Aug 24, 2016 12:34
--- NOTE | 2016-08-24 12:34 | PDOC ---
PROGRESS NOTES Subjective Subjective Pt reports she hasn't had any bowel movements lately. She reports feeling nauseous and having an "uncomfortable" feeling in her abdomen. Denies any actual pain. Per nurse, pt's last bowel movement was on 08/20. Objective Objective Vital Signs Date Time Temp Pulse Resp B/P Pulse Ox O2 Delivery O2 Flow Rate FiO2 08/24/16 09:25 90/54 08/24/16 09:24 65 08/24/16 07:52 97.3 20 94 Room Air 97.3 08/23/16 20:15 1.0 Intake and Output 08/24/16 06:59 Intake Total 250 ml Output Total 400 ml Balance -150 ml Intake Oral 250 ml Output Urine Total 400 ml # Bowel Movements 1 Physical Exam Abdomen: Soft, No tenderness Heart: Regular rate, Normal S1, Normal S2, Other (1-2/6 systolic murmur) Extremities: Other (+2 edema bilateral extremities) General: Alert, Oriented X3, Cooperative HEENT: Atraumatic Lungs: Clear to auscultation Neck: Supple, Other (Right port is placed) Assessment Assessment - Acute on chronic systolic CHF ICM EF 10% AICD - New onset of constipation. Now BM since 08/15/16 - ARF with CKD II, ATN, SONA - HTN - Severe weakness and debility - moderate pulmonary HTN - mild to mod MR - HLD - DM II Problems Medical Problems: (1) Acute on chronic renal failure Status: Acute Plan Plan of Care - Constipation- will order 2oz of mineral oil a day. - Pt is having a dialysis catheter placed today. - Continue on current dobutamine drip - Continue to monitor her - SW has been able to set up for her dobutamine infusions once she is discharged. Thank you for your consultation! Comment Review of Relevant I have reviewed the following items marquise (where applicable) has been applied. Labs Laboratory Tests Test 08/22/16 17:07 08/22/16 21:15 08/23/16 06:20 08/23/16 08:08 Glucose (Fingerstick) 127mg/dL (70-99) 155mg/dL (70-99) 106mg/dL (70-99) Prothrombin Time 24.6SEC (11.7-14.0) Prothromb Time International Ratio 2.4 (0.8-1.1) Test 08/23/16 11:17 08/23/16 20:44 08/24/16 03:30 08/24/16 07:58 Glucose (Fingerstick) 132mg/dL (70-99) 125mg/dL (70-99) 140mg/dL (70-99) White Blood Count 5.5x10^3/uL (4.0-11.0) Red Blood Count 3.76x10^6/uL (4.30-5.70) Hemoglobin 9.5g/dL (13.0-17.5) Hematocrit 29.9% (39.0-53.0) Mean Corpuscular Volume 80fL (79-100) Mean Corpuscular Hemoglobin 25pg (25-35) Mean Corpuscular Hemoglobin Concent 32g/dL (31-37) Red Cell Distribution Width 19.9% (11.5-14.5) Platelet Count 125x10^3/uL (140-400) Neutrophils (%) (Auto) 77% (31-73) Lymphocytes (%) (Auto) 10% (24-48) Monocytes (%) (Auto) 11% (0-9) Eosinophils (%) (Auto) 2% (0-3) Basophils (%) (Auto) 1% (0-3) Neutrophils # (Auto) 4.2x10^3uL (1.8-7.7) Lymphocytes # (Auto) 0.5x10^3/uL (1.0-4.8) Monocytes # (Auto) 0.6x10^3/uL (0.0-1.1) Eosinophils # (Auto) 0.1x10^3/uL (0.0-0.7) Basophils # (Auto) 0.0x10^3/uL (0.0-0.2) Prothrombin Time 21.0SEC (11.7-14.0) Prothromb Time International Ratio 1.9 (0.8-1.1) Sodium Level 135mmol/L (136-145) Potassium Level 4.0mmol/L (3.5-5.1) Chloride Level 101mmol/L (98-107) Carbon Dioxide Level 22mmol/L (21-32) Anion Gap 12 (6-14) Blood Urea Nitrogen 104mg/dL (8-26) Creatinine 3.0mg/dL (0.7-1.3) Estimated GFR (Cockcroft-Gault) 24.9 Glucose Level 141mg/dL (70-99) Calcium Level 8.0mg/dL (8.5-10.1) Laboratory Tests Test 08/23/16 20:44 08/24/16 03:30 08/24/16 07:58 Glucose (Fingerstick) 125mg/dL (70-99) 140mg/dL (70-99) White Blood Count 5.5x10^3/uL (4.0-11.0) Red Blood Count 3.76x10^6/uL (4.30-5.70) Hemoglobin 9.5g/dL (13.0-17.5) Hematocrit 29.9% (39.0-53.0) Mean Corpuscular Volume 80fL (79-100) Mean Corpuscular Hemoglobin 25pg (25-35) Mean Corpuscular Hemoglobin Concent 32g/dL (31-37) Red Cell Distribution Width 19.9% (11.5-14.5) Platelet Count 125x10^3/uL (140-400) Neutrophils (%) (Auto) 77% (31-73) Lymphocytes (%) (Auto) 10% (24-48) Monocytes (%) (Auto) 11% (0-9) Eosinophils (%) (Auto) 2% (0-3) Basophils (%) (Auto) 1% (0-3) Neutrophils # (Auto) 4.2x10^3uL (1.8-7.7) Lymphocytes # (Auto) 0.5x10^3/uL (1.0-4.8) Monocytes # (Auto) 0.6x10^3/uL (0.0-1.1) Eosinophils # (Auto) 0.1x10^3/uL (0.0-0.7) Basophils # (Auto) 0.0x10^3/uL (0.0-0.2) Prothrombin Time 21.0SEC (11.7-14.0) Prothromb Time International Ratio 1.9 (0.8-1.1) Sodium Level 135mmol/L (136-145) Potassium Level 4.0mmol/L (3.5-5.1) Chloride Level 101mmol/L (98-107) Carbon Dioxide Level 22mmol/L (21-32) Anion Gap 12 (6-14) Blood Urea Nitrogen 104mg/dL (8-26) Creatinine 3.0mg/dL (0.7-1.3) Estimated GFR (Cockcroft-Gault) 24.9 Glucose Level 141mg/dL (70-99) Calcium Level 8.0mg/dL (8.5-10.1) Microbiology 08/15/16 Urine Culture - Final, Complete 08/15/16 Urine Culture Result 1 (JV) - Final, Complete 08/15/16 Urine Culture Result 2 (JV) - Final, Complete 08/15/16 Antimicrobic Susceptibility - Final, Complete Medications Current Medications Insulin Aspart (Novolog) 0-5 UNITS TIDWMEALS SQ ; Start 08/14/16 at 17:30 Dextrose 12.5 gm 12.5 gm PRN Q15MIN PRN IV SEE COMMENTS; Start 08/14/16 at 16: 45 Sodium Chloride (Iv Sodium Chloride 0.9% 1000ml Bag) 1,000 ml @ 100 mls/hr Q10H IV Last administered on 08/14/16 18:53; Start 08/14/16 at 17:30; Stop 08/15/16 at 03:29; Status DC Amiodarone HCl (Cordarone) 200 mg DAILY PO Last administered on 08/24/16 09:24 ; Start 08/15/16 at 09:00 Aspirin (Ecotrin) 81 mg DAILY PO Last administered on 08/24/16 09:23; Start at 09:00 Atorvastatin Calcium (Lipitor) 40 mg QHS PO Last administered on 08/23/16 21:24 ; Start 08/14/16 at 21:00 Carvedilol (Coreg) 6.25 mg BIDWMEALS PO Last administered on 08/24/16 09:25; Start 08/14/16 at 17:30 Colestipol HCl (Colestid) 1 gm TID PO Last administered on 08/17/16 20:55; Start 08/14/16 at 21:00; Stop 08/18/16 at 10:08; Status DC Metoclopramide HCl (Reglan) 5 mg PRN BID PRN PO NAUSEA; Start 08/14/16 at 16:45 ; Stop 08/16/16 at 10:25; Status DC Sacubitril/ Valsartan (Entresto 24 Mg-26 Mg) 1 tab BID PO Last administered on 08/17/16 09:14; Start 08/14/16 at 21:00; Stop 08/17/16 at 10:16; Status DC Warfarin Sodium (Coumadin) 2.5 mg DAILY16 PO Last administered on 08/14/16 18: 50; Start 08/14/16 at 18:00; Stop 08/15/16 at 14:13; Status DC Warfarin Sodium (Coumadin Per Physician) 1 each PRN DAILY PRN MC SEE COMMENTS; Start 08/14/16 at 17:15; Stop 08/15/16 at 09:54; Status DC Sodium Polystyrene Sulfonate (Kayexalate) 60 gm 1X ONCE PO Last administered on 08/14/16 18:51; Start 08/14/16 at 18:30; Stop 08/14/16 at 18:31; Status DC Warfarin Sodium (Coumadin Per Pharmacy) 1 each PRN DAILY PRN MC SEE COMMENTS Last administered on 08/23/16 14:18; Start 08/15/16 at 10:00 Pantoprazole Sodium 40 mg 40 mg DAILYAC PO Last administered on 08/24/16 09:23 ; Start 08/15/16 at 11:30 Dobutamine HCl/ Dextrose 250 ml @ 0 mls/hr CONT PRN IV ; Start 08/15/16 at 14:00 ; Stop 08/15/16 at 14:53; Status DC Albumin Human (Albuminar) 100 ml @ 100 mls/hr 1X ONCE IV Last administered on 08/15/16 15:25; Start 08/15/16 at 14:00; Stop 08/15/16 at 14:59; Status DC Furosemide 40 mg 40 mg 1X ONCE IVP Last administered on 08/15/16 16:22; Start 08/15/16 at 15:00; Stop 08/15/16 at 15:01; Status DC Albumin Human (Albuminar) 100 ml @ 100 mls/hr 1X ONCE IV Last administered on 08/16/16 08:41; Start 08/16/16 at 09:00; Stop 08/16/16 at 09:59; Status DC Furosemide (Lasix) 40 mg 1X ONCE IVP Last administered on 08/16/16 09:45; Start 08/16/16 at 10:00; Stop 08/16/16 at 10:01; Status DC Warfarin Sodium 4 mg 4 mg 1X WARF ONCE PO Last administered on 08/15/16 16:33 ; Start 08/15/16 at 16:00; Stop 08/15/16 at 16:01; Status DC Dobutamine HCl/ Dextrose 250 ml @ 0 mls/hr CONT PRN PRN IV SEE I/O RECORD Last administered on 08/23/16 11:01; Start 08/15/16 at 14:53 Sodium Bicarbonate 50 meq 50 meq Q2HR IV Last administered on 08/15/16 18:20; Start 08/15/16 at 16:00; Stop 08/15/16 at 18:30; Status DC Magnesium Sulfate/ Dextrose (Magnesium Sulfate PREMIX 2GM) 50 ml @ 25 mls/hr PRN DAILY PRN IV for Mag < 1.7 on am labs; Start 08/15/16 at 15:30 Warfarin Sodium (Coumadin) 4 mg 1X WARF ONCE PO Last administered on 08/16/16 17:28; Start 08/16/16 at 16:00; Stop 08/16/16 at 16:01; Status DC Ondansetron HCl 4 mg 4 mg PRN Q6HRS PRN IV nausea Last administered on 09:18; Start 08/16/16 at 20:30 Ceftriaxone Sodium 1 gm/ Sodium Chloride 50 ml @ 100 mls/hr Q24H IV Last administered on 08/19/16 10:00; Start 08/17/16 at 10:00; Stop 08/19/16 at 12:56; Status DC Sodium Chloride (Iv Sodium Chloride 0.9% 1000ml Bag) 1,000 ml @ 75 mls/hr [id number] IV Last administered on 08/19/16 16:58; Start 08/17/16 at 10:15; Stop at 09:27; Status DC Warfarin Sodium (Coumadin) 5 mg 1X WARF ONCE PO ; Start 08/17/16 at 16:00; Stop 08/17/16 at 16:01; Status DC Heparin Sodium/ Sodium Chloride 1,000 unit 1X ONCE IART Last administered on 11:45; Start 08/18/16 at 11:30; Stop 08/18/16 at 11:31; Status DC Midazolam HCl (Versed) 2 mg 1X ONCE IV Last administered on 08/18/16 11:46; Start 08/18/16 at 11:30; Stop 08/18/16 at 11:31; Status DC Fentanyl Citrate (Fentanyl 2ml Vial) 100 mcg 1X ONCE IV Last administered on 11:47; Start 08/18/16 at 11:30; Stop 08/18/16 at 11:31; Status DC Lidocaine/ Epinephrine 15 ml 15 ml 1X ONCE IJ Last administered on 08/18/16 11 :44; Start 08/18/16 at 11:30; Stop 08/18/16 at 11:31; Status DC Vancomycin HCl 250 ml @ 250 mls/hr 1X ONCE IRR Last administered on 08/18/16 11:45; Start 08/18/16 at 11:30; Stop 08/18/16 at 12:29; Status DC Heparin Sodium (Porcine) (Hep Lock Adult) 500 unit 1X ONCE IV Last administered on 08/18/16 11:46; Start 08/18/16 at 11:30; Stop 08/18/16 at 11:31; Status DC Heparin Sodium (Porcine) (Hep Lock Adult) 500 unit STK-MED ONCE IV ; Start at 09:29; Stop 08/18/16 at 11:42; Status DC Lidocaine/ Epinephrine 20 ml 20 ml STK-MED ONCE .ROUTE ; Start 08/18/16 at 09:29 ; Stop 08/18/16 at 11:42; Status DC Heparin Sodium/ Sodium Chloride 500 ml @ As Directed STK-MED ONCE .ROUTE ; Start 08/18/16 at 09:29; Stop 08/18/16 at 11:42; Status DC Vancomycin HCl 250 ml @ As Directed STK-MED ONCE .ROUTE ; Start 08/18/16 at 09: 29; Stop 08/18/16 at 11:42; Status DC Fentanyl Citrate (Fentanyl 2ml Vial) 100 mcg STK-MED ONCE .ROUTE ; Start at 10:29; Stop 08/18/16 at 11:43; Status DC Midazolam HCl 2 mg 2 mg STK-MED ONCE .ROUTE ; Start 08/18/16 at 10:30; Stop at 11:43; Status DC Iron Sucrose/ Sodium Chloride (Venofer/Iv Sodium Chloride 0.9% 100ml) 110 ml @ 55 mls/hr 3X/WEEK IV Last administered on 08/21/16 10:28; Start 08/19/16 at 09: 00; Stop 08/28/16 at 10:59 Warfarin Sodium (Coumadin) 5 mg 1X WARF ONCE PO Last administered on 08/18/16 17:56; Start 08/18/16 at 16:00; Stop 08/18/16 at 16:01; Status DC Warfarin Sodium (Coumadin) 3 mg 1X WARF ONCE PO ; Start 08/19/16 at 16:00; Stop 08/19/16 at 16:01; Status Cancel Cefpodoxime Proxetil (Vantin) 100 mg BID PO Last administered on 08/24/16 09: 24; Start 08/19/16 at 21:00 Warfarin Sodium (Coumadin) 2.5 mg 1X WARF ONCE PO Last administered on 16:59; Start 08/19/16 at 16:00; Stop 08/19/16 at 16:01; Status DC Senna/Docusate Sodium 1 tab 1 tab PRN BID PRN PO CONSTIPATION Last administered on 08/20/16 14:18; Start 08/19/16 at 13:30; Stop 08/20/16 at 14:43; Status DC Sodium Chloride 250 ml @ 0 mls/hr 1X ONCE IV Last administered on 08/19/16 14: 33; Start 08/19/16 at 13:45; Stop 08/19/16 at 13:53; Status DC Sodium Chloride (Iv Sodium Chloride 0.9% 500ml Bag) 500 ml @ 0 mls/hr 1X ONCE IV Last administered on 08/19/16 16:58; Start 08/19/16 at 16:00; Stop 08/19/16 at 16:01; Status DC Senna/Docusate Sodium (Senna Plus) 1 tab PRN BID PRN PO CONSTIPATION Last administered on 08/23/16 11:01; Start 08/20/16 at 10:00 Bisacodyl (Dulcolax Supp) 10 mg 1X ONCE TN ; Start 08/20/16 at 11:00; Stop at 11:00; Status DC Bisacodyl (Dulcolax Supp) 10 mg 1X ONCE TN Last administered on 08/20/16 16:49 ; Start 08/20/16 at 14:30; Stop 08/20/16 at 14:31; Status DC Warfarin Sodium (Coumadin) 2 mg 1X WARF ONCE PO Last administered on 08/20/16 16:48; Start 08/20/16 at 16:00; Stop 08/20/16 at 16:01; Status DC Mineral Oil (Fleet Mineral Oil) 133 ml 1X ONCE TN ; Start 08/21/16 at 20:00; Stop 08/21/16 at 20:00; Status DC Non-Formulary Medication 1 ea Q4H PO Last administered on 08/21/16 16:18; Start 08/21/16 at 12:00; Stop 08/21/16 at 16:01; Status DC Sodium Bicarbonate 50 meq Q6H IV Last administered on 08/21/16 20:16; Start 08/21/16 at 14:00; Stop 08/21/16 at 20:01; Status DC Warfarin Sodium (Coumadin) 3 mg 1X WARF ONCE PO Last administered on 08/21/16 16:16; Start 08/21/16 at 16:00; Stop 08/21/16 at 16:01; Status DC Warfarin Sodium (Coumadin) 2.5 mg 1X WARF ONCE PO Last administered on 16:00; Start 08/22/16 at 16:00; Stop 08/22/16 at 16:01; Status DC Warfarin Sodium (Coumadin) 3 mg 1X WARF ONCE PO Last administered on 08/23/16 18:28; Start 08/23/16 at 16:00; Stop 08/23/16 at 16:01; Status DC Lidocaine/ Epinephrine (Xylocaine 2%-Epi 1:100,000) 20 ml STK-MED ONCE .ROUTE ; Start 08/24/16 at 10:54; Stop 08/24/16 at 10:55; Status DC Heparin Sodium (Porcine) 48648 unit 10,000 unit STK-MED ONCE .ROUTE ; Start 03/02 at 10:54; Stop 08/24/16 at 10:55; Status DC Heparin Sodium/ Sodium Chloride 500 ml @ As Directed STK-MED ONCE .ROUTE ; Start 08/24/16 at 10:54; Stop 08/24/16 at 10:55; Status DC Darbepoetin Dino (Aranesp) 60 mcg WEEKLYHS SQ ; Start 08/24/16 at 21:00 Fentanyl Citrate (Fentanyl 2ml Vial) 100 mcg STK-MED ONCE .ROUTE ; Start at 11:26; Stop 08/24/16 at 11:27; Status DC Midazolam HCl 2 mg 2 mg STK-MED ONCE .ROUTE ; Start 08/24/16 at 11:26; Stop 03/02 at 11:27; Status DC Cefazolin Sodium (Ancef 1gm Ivpb For Omni) 0 ml @ As Directed STK-MED ONCE IV ; Start 08/24/16 at 11:26; Stop 08/24/16 at 11:27; Status DC Heparin Sodium/ Sodium Chloride 1,000 unit 1X ONCE IART Last administered on t 12:23; Start 08/24/16 at 11:45; Stop 08/24/16 at 11:46; Status DC Lidocaine/ Epinephrine (Xylocaine 2%-Epi 1:100,000) 20 ml 1X ONCE IJ Last administered on 08/24/16t 12:23; Start 08/24/16 at 11:45; Stop 08/24/16 at 11:46 ; Status DC Fentanyl Citrate (Fentanyl 2ml Vial) 100 mcg STK-MED ONCE .ROUTE ; Start at 11:58; Stop 08/24/16 at 11:59; Status DC Midazolam HCl (Versed) 2 mg STK-MED ONCE .ROUTE ; Start 08/24/16 at 11:58; Stop 08/24/16 at 11:59; Status DC Heparin Sodium (Porcine) (Heparin Sodium) 4,300 unit 1X ONCE IV Last administered on 08/24/16t 12:15; Start 08/24/16 at 12:15; Stop 08/24/16 at 12:21 ; Status DC Midazolam HCl (Versed) 2 mg 1X ONCE IV ; Start 08/24/16 at 12:30; Stop at 12:31; Status UNV Fentanyl Citrate 100 mcg 100 mcg 1X ONCE IV ; Start 08/24/16 at 12:30; Stop 03/02 at 12:31; Status UNV Cefazolin Sodium (Ancef 1gm Ivpb For Omni) 50 ml @ 100 mls/hr 1X ONCE IV ; Start 08/24/16 at 12:30; Stop 08/24/16 at 12:59; Status UNV Active Scripts Active Entresto 24 mg-26 mg Tablet (Sacubitril/Valsartan) 1 Each Tablet 1 Tab PO BID Coumadin (Warfarin Sodium) 2.5 Mg Tablet 2.5 Mg PO DAILY16 Reported Reglan (Metoclopramide Hcl) 10 Mg Tablet 5 Mg PO PRN BID PRN Atorvastatin Calcium 40 Mg Tablet 1 Tab PO DAILY Colestid (Colestipol Hcl) 1 Gm Tablet 1 Gm PO TID Pacerone (Amiodarone Hcl) 200 Mg Tablet 200 Mg PO DAILY Lasix (Furosemide) 80 Mg Tablet 1 Tab PO BID Gabapentin 100 Mg Capsule 1 Cap PO TID Aspir 81 (Aspirin) 81 Mg Tablet.dr 1 Tab PO DAILY Coreg (Carvedilol) 6.25 Mg Tablet 1 Tab PO BID K-Tab ER (Potassium Chloride) 20 Meq Tablet.er 20 Meq PO BID Vitals/I & O Vital Sign - Last 24 Hours 08/23/16 08/23/16 08/23/16 08/23/16 14:57 18:27 19:30 20:15 Temp 98.0 97.9 98.0 97.9 Pulse 60 60 60 Resp 20 20 B/P 102/60 102/60 84/48 Pulse Ox 91 92 O2 Delivery Room Air Room Air Nasal Cannula O2 Flow Rate 1.0 08/23/16 08/24/16 08/24/16 08/24/16 23:52 03:40 07:52 09:24 Temp 97.9 98.1 97.3 97.9 98.1 97.3 Pulse 61 63 63 65 Resp 20 18 20 B/P 101/53 97/46 90/54 Pulse Ox 100 96 94 O2 Delivery Room Air Room Air Room Air 08/24/16 09:25 B/P 90/54 Intake and Output 08/23/16 08/23/16 08/24/16 14:59 22:59 06:59 Intake Total 0 ml 250 ml Output Total 200 ml 200 ml Balance -200 ml 50 ml HEATHER CHERRY MD Aug 24, 2016 12:34
[2016-08-24 12:40] VITALS: BP 99/65
[2016-08-24] MEDS: IRON SUCROSE COMPLEX 200 MG in IV NORMAL SALINE 100ML 100 ML IV SCH (14:40)
[2016-08-24 14:46] VITALS: BP 101/58
--- NOTE | 2016-08-24 15:43 | RAD ---
Ultrasound and fluoro guided placement of right IJ tunneled hemodialysis catheter Indication: 71-year-old female with new end-stage renal disease. Tunneled hemodialysis catheter insertion has been requested by renal. Fluoro time: 1.1 minutes Kerma-Area Product: 3 Gycm2 Moderate sedation: 35 minutes moderate sedation was provided utilizing a total of 1.5 mg Versed and 75 mcg fentanyl, IV. The patient was appropriately monitored by a qualified independent observer throughout the time of moderate sedation. Antibiotic: A single dose of Ancef was administered within 1 hour of the procedure start time. Sterility: All elements of maximal sterile barrier technique, including the use of a cap, mask, sterile gown, sterile gloves, large sterile sheet, appropriate hand hygiene, and 2% chlorhexidine for cutaneous antisepsis (or acceptable alternative antiseptic per current guidelines) were utilized. Procedure: Informed consent was obtained from the patient. She was placed supine on the angiography table. Preliminary ultrasound examination of right neck revealed continued patency of right internal jugular vein, which was documented with a hard copy ultrasound image. Right neck and upper chest were then prepped and draped in the usual sterile fashion, utilizing all elements of maximal sterile barrier technique, as described above. Moderate sedation was provided with IV Versed and Fentanyl. 1 gram Ancef was given IV, prophylactically. Using aseptic technique and local anesthesia, a small skin incision was made lateral to right internal jugular vein, just above clavicle. Using aseptic technique, local anesthesia, and direct ultrasound guidance, a micropuncture needle was successfully introduced into right internal jugular vein, taking care to avoid the indwelling right IJ power port catheter. The micropuncture needle was then exchanged over a microguidewire for a micropuncture sheath, through which an Amplatz wire was advanced into IVC, under fluoroscopic control. A second small skin incision was then made along upper anterior aspect of right chest. A subcutaneous tunnel was then fashioned between the right chest and supraclavicular incisions. A 15.5 F 28 cm Dura Max dialysis catheter was pulled through the subcutaneous tunnel from inferior to superior, utilizing the tunneling device provided. The right IJ venostomy tract was then sequentially dilated and the 15.5 [place] dialysis catheter was easily advanced centrally through a 16 Cambodian peel-away sheath, and was positioned with its tip at the level of upper right atrium utilizing fluoroscopic guidance. This catheter was demonstrated to flush and aspirate normally, was packed, and was secured at the right chest exit site utilizing 2-0 Prolene and sterile dressing. The small supraclavicular incision was closed with 4-0 Vicryl, Steri-Strips, and sterile dressing. Patient tolerated the procedure well without apparent complication. Satisfactory position of the dialysis catheter was confirmed with a single fluoroscopic spot image. Impression: Successful, uneventful ultrasound and fluoro guided placement of right IJ 15.5 F 28 cm Dura Max tunneled hemodialysis catheter, as described.
[2016-08-24] MEDS ORDERED: WARFARIN 4 MG TABLET. PO ONE (16:00)
[2016-08-24 19:20] VITALS: BP 103/58
[2016-08-24] MEDS ORDERED: MINERAL OIL 133 ML ENEMA. PR PRN (19:30)
[2016-08-24] MEDS: ATORVASTATIN CALCIUM 40 MG TABLET. PO SCH (20:59)
[2016-08-24] MEDS: DARBEPOETIN ALFA 60 MCG/0.3 ML DISP.SYRIN. SQ SCH (20:59)
[2016-08-24 22:49] VITALS: BP 116/59
[2016-08-25] VITALS (8 sets, daily range): BP systolic 95–108; BP diastolic 53–62
[2016-08-25 05:01] LABS: HEMATOCRIT 29.6 % (39.0-53.0); HEMOGLOBIN 9.4 g/dL (13.0-17.5); RED BLOOD COUNT 3.73 x10^6/uL (4.30-5.70); RED CELL DISTRIBUTION WIDTH 20.2 % (11.5-14.5); WHITE BLOOD COUNT 5.2 x10^3/uL (4.0-11.0)
[2016-08-25 05:11] LABS: INR 2.1 (0.8-1.1); PROTHROMBIN TIME PATIENT 22.5 SEC (11.7-14.0)
[2016-08-25 05:35] LABS: ALBUMIN 2.7 g/dL (3.4-5.0); CALCIUM 7.8 mg/dL (8.5-10.1); CREATININE 2.8 mg/dL (0.7-1.3); DIRECT BILIRUBIN 0.3 mg/dL (0.0-0.2); POTASSIUM 3.7 mmol/L (3.5-5.1); TOTAL BILIRUBIN 0.5 mg/dL (0.2-1.0); TOTAL PROTEIN 5.6 g/dL (6.4-8.2)
[2016-08-25] MEDS: PANTOPRAZOLE 40 MG TABLET.DR. PO SCH (05:58)
[2016-08-25] MEDS: INSULIN ASPART 300 UNITS/3 ML INSULN.PEN SQ SCH ×3 (08:00→17:00)
--- NOTE | 2016-08-25 09:30 | PDOC ---
PROGRESS NOTES Subjective Subjective No new complaints. Objective Objective Vital Signs Date Time Temp Pulse Resp B/P Pulse Ox O2 Delivery O2 Flow Rate FiO2 08/25/16 07:45 97.7 60 18 108/59 93 Room Air 97.7 08/23/16 20:15 1.0 Intake and Output 08/25/16 07:00 Intake Total 310 ml Output Total 750 ml Balance -440 ml Intake Oral 310 ml Output Urine Total 750 ml # Bowel Movements 1 Physical Exam Physical Exam She is alert,supine in bed and comfortable and dressing in place to right heel blister. Assessment Assessment Problems Medical Problems: (1) Acute on chronic renal failure Status: Acute Plan Plan of Care To continue present physical and occupational therapy follow up as tolerated. Comment Review of Relevant I have reviewed the following items marquise (where applicable) has been applied. Labs Laboratory Tests Test 08/23/16 11:17 08/23/16 20:44 08/24/16 03:30 08/24/16 07:58 Glucose (Fingerstick) 132mg/dL (70-99) 125mg/dL (70-99) 140mg/dL (70-99) White Blood Count 5.5x10^3/uL (4.0-11.0) Red Blood Count 3.76x10^6/uL (4.30-5.70) Hemoglobin 9.5g/dL (13.0-17.5) Hematocrit 29.9% (39.0-53.0) Mean Corpuscular Volume 80fL (79-100) Mean Corpuscular Hemoglobin 25pg (25-35) Mean Corpuscular Hemoglobin Concent 32g/dL (31-37) Red Cell Distribution Width 19.9% (11.5-14.5) Platelet Count 125x10^3/uL (140-400) Neutrophils (%) (Auto) 77% (31-73) Lymphocytes (%) (Auto) 10% (24-48) Monocytes (%) (Auto) 11% (0-9) Eosinophils (%) (Auto) 2% (0-3) Basophils (%) (Auto) 1% (0-3) Neutrophils # (Auto) 4.2x10^3uL (1.8-7.7) Lymphocytes # (Auto) 0.5x10^3/uL (1.0-4.8) Monocytes # (Auto) 0.6x10^3/uL (0.0-1.1) Eosinophils # (Auto) 0.1x10^3/uL (0.0-0.7) Basophils # (Auto) 0.0x10^3/uL (0.0-0.2) Prothrombin Time 21.0SEC (11.7-14.0) Prothromb Time International Ratio 1.9 (0.8-1.1) Sodium Level 135mmol/L (136-145) Potassium Level 4.0mmol/L (3.5-5.1) Chloride Level 101mmol/L (98-107) Carbon Dioxide Level 22mmol/L (21-32) Anion Gap 12 (6-14) Blood Urea Nitrogen 104mg/dL (8-26) Creatinine 3.0mg/dL (0.7-1.3) Estimated GFR (Cockcroft-Gault) 24.9 Glucose Level 141mg/dL (70-99) Calcium Level 8.0mg/dL (8.5-10.1) Hepatitis B Core Total Antibody Negative (Negative) Test 08/24/16 13:38 08/24/16 17:12 08/24/16 20:58 08/25/16 04:55 Glucose (Fingerstick) 123mg/dL (70-99) 103mg/dL (70-99) 110mg/dL (70-99) White Blood Count 5.2x10^3/uL (4.0-11.0) Red Blood Count 3.73x10^6/uL (4.30-5.70) Hemoglobin 9.4g/dL (13.0-17.5) Hematocrit 29.6% (39.0-53.0) Mean Corpuscular Volume 79fL (79-100) Mean Corpuscular Hemoglobin 25pg (25-35) Mean Corpuscular Hemoglobin Concent 32g/dL (31-37) Red Cell Distribution Width 20.2% (11.5-14.5) Platelet Count 126x10^3/uL (140-400) Prothrombin Time 22.5SEC (11.7-14.0) Prothromb Time International Ratio 2.1 (0.8-1.1) Sodium Level 135mmol/L (136-145) Potassium Level 3.7mmol/L (3.5-5.1) Chloride Level 101mmol/L (98-107) Carbon Dioxide Level 21mmol/L (21-32) Anion Gap 13 (6-14) Blood Urea Nitrogen 103mg/dL (8-26) Creatinine 2.8mg/dL (0.7-1.3) Estimated GFR (Cockcroft-Gault) 27.0 Glucose Level 126mg/dL (70-99) Calcium Level 7.8mg/dL (8.5-10.1) Total Bilirubin 0.5mg/dL (0.2-1.0) Direct Bilirubin 0.3mg/dL (0.0-0.2) Aspartate Amino Transf (AST/SGOT) 17U/L (15-37) Alanine Aminotransferase (ALT/SGPT) 19U/L (16-63) Alkaline Phosphatase 75U/L (46-116) Total Protein 5.6g/dL (6.4-8.2) Albumin 2.7g/dL (3.4-5.0) Test 08/25/16 08:10 Glucose (Fingerstick) 107mg/dL (70-99) Laboratory Tests Test 08/24/16 13:38 08/24/16 17:12 08/24/16 20:58 08/25/16 04:55 Glucose (Fingerstick) 123mg/dL (70-99) 103mg/dL (70-99) 110mg/dL (70-99) White Blood Count 5.2x10^3/uL (4.0-11.0) Red Blood Count 3.73x10^6/uL (4.30-5.70) Hemoglobin 9.4g/dL (13.0-17.5) Hematocrit 29.6% (39.0-53.0) Mean Corpuscular Volume 79fL (79-100) Mean Corpuscular Hemoglobin 25pg (25-35) Mean Corpuscular Hemoglobin Concent 32g/dL (31-37) Red Cell Distribution Width 20.2% (11.5-14.5) Platelet Count 126x10^3/uL (140-400) Prothrombin Time 22.5SEC (11.7-14.0) Prothromb Time International Ratio 2.1 (0.8-1.1) Sodium Level 135mmol/L (136-145) Potassium Level 3.7mmol/L (3.5-5.1) Chloride Level 101mmol/L (98-107) Carbon Dioxide Level 21mmol/L (21-32) Anion Gap 13 (6-14) Blood Urea Nitrogen 103mg/dL (8-26) Creatinine 2.8mg/dL (0.7-1.3) Estimated GFR (Cockcroft-Gault) 27.0 Glucose Level 126mg/dL (70-99) Calcium Level 7.8mg/dL (8.5-10.1) Total Bilirubin 0.5mg/dL (0.2-1.0) Direct Bilirubin 0.3mg/dL (0.0-0.2) Aspartate Amino Transf (AST/SGOT) 17U/L (15-37) Alanine Aminotransferase (ALT/SGPT) 19U/L (16-63) Alkaline Phosphatase 75U/L (46-116) Total Protein 5.6g/dL (6.4-8.2) Albumin 2.7g/dL (3.4-5.0) Test 08/25/16 08:10 Glucose (Fingerstick) 107mg/dL (70-99) Microbiology 08/15/16 Urine Culture - Final, Complete 08/15/16 Urine Culture Result 1 (JV) - Final, Complete 08/15/16 Urine Culture Result 2 (JV) - Final, Complete 08/15/16 Antimicrobic Susceptibility - Final, Complete Medications Current Medications Insulin Aspart (Novolog) 0-5 UNITS TIDWMEALS SQ ; Start 08/14/16 at 17:30 Dextrose 12.5 gm 12.5 gm PRN Q15MIN PRN IV SEE COMMENTS; Start 08/14/16 at 16: 45 Sodium Chloride (Iv Sodium Chloride 0.9% 1000ml Bag) 1,000 ml @ 100 mls/hr Q10H IV Last administered on 08/14/16 18:53; Start 08/14/16 at 17:30; Stop 08/15/16 at 03:29; Status DC Amiodarone HCl (Cordarone) 200 mg DAILY PO Last administered on 08/24/16 09:24 ; Start 08/15/16 at 09:00 Aspirin (Ecotrin) 81 mg DAILY PO Last administered on 08/24/16 09:23; Start at 09:00 Atorvastatin Calcium (Lipitor) 40 mg QHS PO Last administered on 08/24/16 20: 59; Start 08/14/16 at 21:00 Carvedilol (Coreg) 6.25 mg BIDWMEALS PO Last administered on 08/24/16 18:08; Start 08/14/16 at 17:30 Colestipol HCl (Colestid) 1 gm TID PO Last administered on 08/17/16 20:55; Start 08/14/16 at 21:00; Stop 08/18/16 at 10:08; Status DC Metoclopramide HCl (Reglan) 5 mg PRN BID PRN PO NAUSEA; Start 08/14/16 at 16:45 ; Stop 08/16/16 at 10:25; Status DC Sacubitril/ Valsartan (Entresto 24 Mg-26 Mg) 1 tab BID PO Last administered on 08/17/16 09:14; Start 08/14/16 at 21:00; Stop 08/17/16 at 10:16; Status DC Warfarin Sodium (Coumadin) 2.5 mg DAILY16 PO Last administered on 08/14/16 18: 50; Start 08/14/16 at 18:00; Stop 08/15/16 at 14:13; Status DC Warfarin Sodium (Coumadin Per Physician) 1 each PRN DAILY PRN MC SEE COMMENTS; Start 08/14/16 at 17:15; Stop 08/15/16 at 09:54; Status DC Sodium Polystyrene Sulfonate (Kayexalate) 60 gm 1X ONCE PO Last administered on 08/14/16 18:51; Start 08/14/16 at 18:30; Stop 08/14/16 at 18:31; Status DC Warfarin Sodium (Coumadin Per Pharmacy) 1 each PRN DAILY PRN MC SEE COMMENTS Last administered on 08/24/16 12:37; Start 08/15/16 at 10:00 Pantoprazole Sodium 40 mg 40 mg DAILYAC PO Last administered on 08/25/16 05:58 ; Start 08/15/16 at 11:30 Dobutamine HCl/ Dextrose 250 ml @ 0 mls/hr CONT PRN IV ; Start 08/15/16 at 14:00 ; Stop 08/15/16 at 14:53; Status DC Albumin Human (Albuminar) 100 ml @ 100 mls/hr 1X ONCE IV Last administered on 08/15/16 15:25; Start 08/15/16 at 14:00; Stop 08/15/16 at 14:59; Status DC Furosemide 40 mg 40 mg 1X ONCE IVP Last administered on 08/15/16 16:22; Start 08/15/16 at 15:00; Stop 08/15/16 at 15:01; Status DC Albumin Human (Albuminar) 100 ml @ 100 mls/hr 1X ONCE IV Last administered on 08/16/16 08:41; Start 08/16/16 at 09:00; Stop 08/16/16 at 09:59; Status DC Furosemide (Lasix) 40 mg 1X ONCE IVP Last administered on 08/16/16 09:45; Start 08/16/16 at 10:00; Stop 08/16/16 at 10:01; Status DC Warfarin Sodium 4 mg 4 mg 1X WARF ONCE PO Last administered on 08/15/16 16:33 ; Start 08/15/16 at 16:00; Stop 08/15/16 at 16:01; Status DC Dobutamine HCl/ Dextrose 250 ml @ 0 mls/hr CONT PRN PRN IV SEE I/O RECORD Last administered on 08/23/16 11:01; Start 08/15/16 at 14:53 Sodium Bicarbonate 50 meq 50 meq Q2HR IV Last administered on 08/15/16 18:20; Start 08/15/16 at 16:00; Stop 08/15/16 at 18:30; Status DC Magnesium Sulfate/ Dextrose (Magnesium Sulfate PREMIX 2GM) 50 ml @ 25 mls/hr PRN DAILY PRN IV for Mag < 1.7 on am labs; Start 08/15/16 at 15:30 Warfarin Sodium (Coumadin) 4 mg 1X WARF ONCE PO Last administered on 08/16/16 17:28; Start 08/16/16 at 16:00; Stop 08/16/16 at 16:01; Status DC Ondansetron HCl 4 mg 4 mg PRN Q6HRS PRN IV nausea Last administered on 18:09; Start 08/16/16 at 20:30 Ceftriaxone Sodium 1 gm/ Sodium Chloride 50 ml @ 100 mls/hr Q24H IV Last administered on 08/19/16 10:00; Start 08/17/16 at 10:00; Stop 08/19/16 at 12:56; Status DC Sodium Chloride (Iv Sodium Chloride 0.9% 1000ml Bag) 1,000 ml @ 75 mls/hr [id number] IV Last administered on 08/19/16 16:58; Start 08/17/16 at 10:15; Stop at 09:27; Status DC Warfarin Sodium (Coumadin) 5 mg 1X WARF ONCE PO ; Start 08/17/16 at 16:00; Stop 08/17/16 at 16:01; Status DC Heparin Sodium/ Sodium Chloride 1,000 unit 1X ONCE IART Last administered on 11:45; Start 08/18/16 at 11:30; Stop 08/18/16 at 11:31; Status DC Midazolam HCl (Versed) 2 mg 1X ONCE IV Last administered on 08/18/16 11:46; Start 08/18/16 at 11:30; Stop 08/18/16 at 11:31; Status DC Fentanyl Citrate (Fentanyl 2ml Vial) 100 mcg 1X ONCE IV Last administered on 11:47; Start 08/18/16 at 11:30; Stop 08/18/16 at 11:31; Status DC Lidocaine/ Epinephrine 15 ml 15 ml 1X ONCE IJ Last administered on 08/18/16 11 :44; Start 08/18/16 at 11:30; Stop 08/18/16 at 11:31; Status DC Vancomycin HCl 250 ml @ 250 mls/hr 1X ONCE IRR Last administered on 08/18/16 11:45; Start 08/18/16 at 11:30; Stop 08/18/16 at 12:29; Status DC Heparin Sodium (Porcine) (Hep Lock Adult) 500 unit 1X ONCE IV Last administered on 08/18/16 11:46; Start 08/18/16 at 11:30; Stop 08/18/16 at 11:31; Status DC Heparin Sodium (Porcine) (Hep Lock Adult) 500 unit STK-MED ONCE IV ; Start at 09:29; Stop 08/18/16 at 11:42; Status DC Lidocaine/ Epinephrine 20 ml 20 ml STK-MED ONCE .ROUTE ; Start 08/18/16 at 09:29 ; Stop 08/18/16 at 11:42; Status DC Heparin Sodium/ Sodium Chloride 500 ml @ As Directed STK-MED ONCE .ROUTE ; Start 08/18/16 at 09:29; Stop 08/18/16 at 11:42; Status DC Vancomycin HCl 250 ml @ As Directed STK-MED ONCE .ROUTE ; Start 08/18/16 at 09: 29; Stop 08/18/16 at 11:42; Status DC Fentanyl Citrate (Fentanyl 2ml Vial) 100 mcg STK-MED ONCE .ROUTE ; Start at 10:29; Stop 08/18/16 at 11:43; Status DC Midazolam HCl 2 mg 2 mg STK-MED ONCE .ROUTE ; Start 08/18/16 at 10:30; Stop at 11:43; Status DC Iron Sucrose/ Sodium Chloride (Venofer/Iv Sodium Chloride 0.9% 100ml) 110 ml @ 55 mls/hr 3X/WEEK IV Last administered on 08/24/16 14:40; Start 08/19/16 at 09: 00; Stop 08/28/16 at 10:59 Warfarin Sodium (Coumadin) 5 mg 1X WARF ONCE PO Last administered on 08/18/16 17:56; Start 08/18/16 at 16:00; Stop 08/18/16 at 16:01; Status DC Warfarin Sodium (Coumadin) 3 mg 1X WARF ONCE PO ; Start 08/19/16 at 16:00; Stop 08/19/16 at 16:01; Status Cancel Cefpodoxime Proxetil (Vantin) 100 mg BID PO Last administered on 08/24/16 20: 59; Start 08/19/16 at 21:00 Warfarin Sodium (Coumadin) 2.5 mg 1X WARF ONCE PO Last administered on 16:59; Start 08/19/16 at 16:00; Stop 08/19/16 at 16:01; Status DC Senna/Docusate Sodium 1 tab 1 tab PRN BID PRN PO CONSTIPATION Last administered on 08/20/16 14:18; Start 08/19/16 at 13:30; Stop 08/20/16 at 14:43; Status DC Sodium Chloride 250 ml @ 0 mls/hr 1X ONCE IV Last administered on 08/19/16 14: 33; Start 08/19/16 at 13:45; Stop 08/19/16 at 13:53; Status DC Sodium Chloride (Iv Sodium Chloride 0.9% 500ml Bag) 500 ml @ 0 mls/hr 1X ONCE IV Last administered on 08/19/16 16:58; Start 08/19/16 at 16:00; Stop 08/19/16 at 16:01; Status DC Senna/Docusate Sodium (Senna Plus) 1 tab PRN BID PRN PO CONSTIPATION Last administered on 08/23/16 11:01; Start 08/20/16 at 10:00 Bisacodyl (Dulcolax Supp) 10 mg 1X ONCE OR ; Start 08/20/16 at 11:00; Stop at 11:00; Status DC Bisacodyl (Dulcolax Supp) 10 mg 1X ONCE OR Last administered on 08/20/16 16:49 ; Start 08/20/16 at 14:30; Stop 08/20/16 at 14:31; Status DC Warfarin Sodium (Coumadin) 2 mg 1X WARF ONCE PO Last administered on 08/20/16 16:48; Start 08/20/16 at 16:00; Stop 08/20/16 at 16:01; Status DC Mineral Oil (Fleet Mineral Oil) 133 ml 1X ONCE OR ; Start 08/21/16 at 20:00; Stop 08/21/16 at 20:00; Status DC Non-Formulary Medication 1 ea Q4H PO Last administered on 08/21/16 16:18; Start 08/21/16 at 12:00; Stop 08/21/16 at 16:01; Status DC Sodium Bicarbonate 50 meq Q6H IV Last administered on 08/21/16 20:16; Start 08/21/16 at 14:00; Stop 08/21/16 at 20:01; Status DC Warfarin Sodium (Coumadin) 3 mg 1X WARF ONCE PO Last administered on 08/21/16 16:16; Start 08/21/16 at 16:00; Stop 08/21/16 at 16:01; Status DC Warfarin Sodium (Coumadin) 2.5 mg 1X WARF ONCE PO Last administered on 16:00; Start 08/22/16 at 16:00; Stop 08/22/16 at 16:01; Status DC Warfarin Sodium (Coumadin) 3 mg 1X WARF ONCE PO Last administered on 08/23/16 18:28; Start 08/23/16 at 16:00; Stop 08/23/16 at 16:01; Status DC Lidocaine/ Epinephrine (Xylocaine 2%-Epi 1:100,000) 20 ml STK-MED ONCE .ROUTE ; Start 08/24/16 at 10:54; Stop 08/24/16 at 10:55; Status DC Heparin Sodium (Porcine) 51675 unit 10,000 unit STK-MED ONCE .ROUTE ; Start 03/02 at 10:54; Stop 08/24/16 at 10:55; Status DC Heparin Sodium/ Sodium Chloride 500 ml @ As Directed STK-MED ONCE .ROUTE ; Start 08/24/16 at 10:54; Stop 08/24/16 at 10:55; Status DC Darbepoetin Dino (Aranesp) 60 mcg WEEKLYHS SQ Last administered on 08/24/16 20 :59; Start 08/24/16 at 21:00 Fentanyl Citrate (Fentanyl 2ml Vial) 100 mcg STK-MED ONCE .ROUTE ; Start at 11:26; Stop 08/24/16 at 11:27; Status DC Midazolam HCl 2 mg 2 mg STK-MED ONCE .ROUTE ; Start 08/24/16 at 11:26; Stop 03/02 at 11:27; Status DC Cefazolin Sodium (Ancef 1gm Ivpb For Omni) 0 ml @ As Directed STK-MED ONCE IV ; Start 08/24/16 at 11:26; Stop 08/24/16 at 11:27; Status DC Heparin Sodium/ Sodium Chloride 1,000 unit 1X ONCE IART Last administered on 12:23; Start 08/24/16 at 11:45; Stop 08/24/16 at 11:46; Status DC Lidocaine/ Epinephrine (Xylocaine 2%-Epi 1:100,000) 20 ml 1X ONCE IJ Last administered on 08/24/16 12:23; Start 08/24/16 at 11:45; Stop 08/24/16 at 11:46 ; Status DC Fentanyl Citrate (Fentanyl 2ml Vial) 100 mcg STK-MED ONCE .ROUTE ; Start at 11:58; Stop 08/24/16 at 11:59; Status DC Midazolam HCl (Versed) 2 mg STK-MED ONCE .ROUTE ; Start 08/24/16 at 11:58; Stop 08/24/16 at 11:59; Status DC Heparin Sodium (Porcine) (Heparin Sodium) 4,300 unit 1X ONCE IV Last administered on 08/24/16 12:15; Start 08/24/16 at 12:15; Stop 08/24/16 at 12:21 ; Status DC Midazolam HCl (Versed) 2 mg 1X ONCE IV Last administered on 08/24/16 12:30; Start 08/24/16 at 12:30; Stop 08/24/16 at 12:31; Status DC Fentanyl Citrate 100 mcg 100 mcg 1X ONCE IV Last administered on 08/24/16 12: 30; Start 08/24/16 at 12:30; Stop 08/24/16 at 12:31; Status DC Cefazolin Sodium (Ancef 1gm Ivpb For Omni) 50 ml @ 100 mls/hr 1X ONCE IV Last administered on 08/24/16 12:29; Start 08/24/16 at 12:30; Stop 08/24/16 at 12:59; Status DC Warfarin Sodium (Coumadin) 4 mg 1X WARF ONCE PO Last administered on 18:08; Start 08/24/16 at 16:00; Stop 08/24/16 at 16:01; Status DC Mineral Oil (Fleet Mineral Oil) 133 ml PRN DAILY PRN OR CONSTIPATION; Start 03/02 at 19:30 Active Scripts Active Entresto 24 mg-26 mg Tablet (Sacubitril/Valsartan) 1 Each Tablet 1 Tab PO BID Coumadin (Warfarin Sodium) 2.5 Mg Tablet 2.5 Mg PO DAILY16 Reported Reglan (Metoclopramide Hcl) 10 Mg Tablet 5 Mg PO PRN BID PRN Atorvastatin Calcium 40 Mg Tablet 1 Tab PO DAILY Colestid (Colestipol Hcl) 1 Gm Tablet 1 Gm PO TID Pacerone (Amiodarone Hcl) 200 Mg Tablet 200 Mg PO DAILY Lasix (Furosemide) 80 Mg Tablet 1 Tab PO BID Gabapentin 100 Mg Capsule 1 Cap PO TID Aspir 81 (Aspirin) 81 Mg Tablet.dr 1 Tab PO DAILY Coreg (Carvedilol) 6.25 Mg Tablet 1 Tab PO BID K-Tab ER (Potassium Chloride) 20 Meq Tablet.er 20 Meq PO BID Vitals/I & O Vital Sign - Last 24 Hours 08/24/16 08/24/16 08/24/16 08/24/16 12:30 12:40 13:00 14:46 Temp 97.6 97.6 Pulse 66 62 Resp 14 14 20 B/P 101/58 Pulse Ox 95 95 92 O2 Delivery Room Air Room Air Room Air Room Air 08/24/16 08/24/16 08/24/16 08/24/16 18:08 19:20 20:00 22:49 Temp 97.7 97.9 97.7 97.9 Pulse 108 63 Resp 16 16 B/P 99/61 103/58 116/59 Pulse Ox 99 98 O2 Delivery Room Air Room Air Room Air 08/25/16 08/25/16 02:59 07:45 Temp 98.3 97.7 98.3 97.7 Pulse 65 60 Resp 18 18 B/P 99/62 108/59 Pulse Ox 98 93 O2 Delivery Room Air Room Air Intake and Output 08/24/16 08/24/16 08/25/16 15:00 23:00 07:00 Intake Total 200 ml 110 ml Output Total 400 ml 200 ml 150 ml Balance -400 ml 0 ml -40 ml MADDIE AMBROSE MD Aug 25, 2016 09:30
--- NOTE | 2016-08-25 09:32 | PDOC ---
PROGRESS NOTES Subjective Subjective going to dialysis today for the first time Objective Objective Vital Signs Date Time Temp Pulse Resp B/P Pulse Ox O2 Delivery O2 Flow Rate FiO2 08/25/16 07:45 97.7 60 18 108/59 93 Room Air 97.7 Intake and Output 08/25/16 07:00 Intake Total 310 ml Output Total 750 ml Balance -440 ml Intake Oral 310 ml Output Urine Total 750 ml # Bowel Movements 1 Physical Exam Abdomen: Soft, No tenderness Heart: Regular rate, Normal S1, Normal S2, Other (1-2/6 systolic murmur) Extremities: Other (+2 edema bilateral extremities) General: Alert, Oriented X3, Cooperative HEENT: Atraumatic Lungs: Clear to auscultation MUSCULOSKELETAL: No joint tenderness, No deformity, No muscular tenderness noted Neck: Supple, Other (Right port is placed) Neuro: Normal speech Psych/Mental Status: Mood NL Skin: No rashes, No significant lesion COMMENT cervantes present Diagnosis Problem List Problems Medical Problems: (1) Acute on chronic renal failure Status: Acute Assessment Assessment * urinary retention. ac on crf. possible ATN 1. ARF with CKD II ATN SONA ,cr 2.9 no change from yesterday 2. a/c systolic CHF ICM EF 10% AICD 3. HTN 4. DM II with CKD II diet control 5. hyperlipidemia 6. mild to mod MR 7. moderate pulmonary HTN 8. severe weakness and debility 9. metabolic encephalopathy POA 10. moderate chronic PCL malnutrition PLAN: [facility] dialysis today . temp dialysis catheter placed yesterday. spoke with renal, plans to place temp dialysis catheter today and start dialysis . DNR ordered signed, as requested by the pt. spoke with geriatric social work professor spoke with pt+daughter. want DNR , proceed with dialysis. want to take to [place] to stay with daughter. ? hospice down the road. vascular consult, dec circulation to feet both side worse on rt side cervantes placed for bladder retention. pt may need dialysis, cr 3.0 Home with home health or SNU next week spoke with renal+rehab today today. Vantin for UTI,E Coli olive cath placement . d/c iv fluids ,no improvement CHF on dobutamine cardiology consult appreciated d/c [facility] poor [facility] prognosis. do not want anything done for leg circulation at this time dec pulses on feet ,arterial doppler Problems: Plan Plan of Care Problems Medical Problems: (1) Acute on chronic renal failure Status: Acute Comment Review of Relevant I have reviewed the following items marquise (where applicable) has been applied. Labs Laboratory Tests Test 08/24/16 13:38 08/24/16 17:12 08/24/16 20:58 08/25/16 04:55 Glucose (Fingerstick) 123mg/dL (70-99) 103mg/dL (70-99) 110mg/dL (70-99) White Blood Count 5.2x10^3/uL (4.0-11.0) Red Blood Count 3.73x10^6/uL (4.30-5.70) Hemoglobin 9.4g/dL (13.0-17.5) Hematocrit 29.6% (39.0-53.0) Mean Corpuscular Volume 79fL (79-100) Mean Corpuscular Hemoglobin 25pg (25-35) Mean Corpuscular Hemoglobin Concent 32g/dL (31-37) Red Cell Distribution Width 20.2% (11.5-14.5) Platelet Count 126x10^3/uL (140-400) Prothrombin Time 22.5SEC (11.7-14.0) Prothromb Time International Ratio 2.1 (0.8-1.1) Sodium Level 135mmol/L (136-145) Potassium Level 3.7mmol/L (3.5-5.1) Chloride Level 101mmol/L (98-107) Carbon Dioxide Level 21mmol/L (21-32) Anion Gap 13 (6-14) Blood Urea Nitrogen 103mg/dL (8-26) Creatinine 2.8mg/dL (0.7-1.3) Estimated GFR (Cockcroft-Gault) 27.0 Glucose Level 126mg/dL (70-99) Calcium Level 7.8mg/dL (8.5-10.1) Total Bilirubin 0.5mg/dL (0.2-1.0) Direct Bilirubin 0.3mg/dL (0.0-0.2) Aspartate Amino Transf (AST/SGOT) 17U/L (15-37) Alanine Aminotransferase (ALT/SGPT) 19U/L (16-63) Alkaline Phosphatase 75U/L (46-116) Total Protein 5.6g/dL (6.4-8.2) Albumin 2.7g/dL (3.4-5.0) Test 08/25/16 08:10 Glucose (Fingerstick) 107mg/dL (70-99) Microbiology 08/15/16 Urine Culture - Final, Complete 08/15/16 Urine Culture Result 1 (JV) - Final, Complete 08/15/16 Urine Culture Result 2 (JV) - Final, Complete 08/15/16 Antimicrobic Susceptibility - Final, Complete Medications Current Medications Cefazolin Sodium (Ancef 1gm Ivpb For Omni) 0 ml @ As Directed STK-MED ONCE IV ; Start 08/24/16 at 11:26; Stop 08/24/16 at 11:27; Status DC Cefazolin Sodium (Ancef 1gm Ivpb For Omni) 50 ml @ 100 mls/hr 1X ONCE IV Last administered on 08/24/16 12:29; Start 08/24/16 at 12:30; Stop 08/24/16 at 12:59; Status DC Darbepoetin Dino (Aranesp) 60 mcg WEEKLYHS SQ Last administered on 08/24/16 20 :59; Start 08/24/16 at 21:00 Fentanyl Citrate (Fentanyl 2ml Vial) 100 mcg STK-MED ONCE .ROUTE ; Start at 11:26; Stop 08/24/16 at 11:27; Status DC Fentanyl Citrate (Fentanyl 2ml Vial) 100 mcg STK-MED ONCE .ROUTE ; Start at 11:58; Stop 08/24/16 at 11:59; Status DC Fentanyl Citrate 100 mcg 100 mcg 1X ONCE IV Last administered on 08/24/16 12: 30; Start 08/24/16 at 12:30; Stop 08/24/16 at 12:31; Status DC Heparin Sodium (Porcine) (Heparin Sodium) 4,300 unit 1X ONCE IV Last administered on 08/24/16 12:15; Start 08/24/16 at 12:15; Stop 08/24/16 at 12:21 ; Status DC Heparin Sodium (Porcine) 59178 unit 10,000 unit STK-MED ONCE .ROUTE ; Start 03/02 at 10:54; Stop 08/24/16 at 10:55; Status DC Heparin Sodium/ Sodium Chloride 500 ml @ As Directed STK-MED ONCE .ROUTE ; Start 08/24/16 at 10:54; Stop 08/24/16 at 10:55; Status DC Heparin Sodium/ Sodium Chloride 1,000 unit 1X ONCE IART Last administered on 12:23; Start 08/24/16 at 11:45; Stop 08/24/16 at 11:46; Status DC Lidocaine/ Epinephrine (Xylocaine 2%-Epi 1:100,000) 20 ml 1X ONCE IJ Last administered on 08/24/16 12:23; Start 08/24/16 at 11:45; Stop 08/24/16 at 11:46 ; Status DC Lidocaine/ Epinephrine (Xylocaine 2%-Epi 1:100,000) 20 ml STK-MED ONCE .ROUTE ; Start 08/24/16 at 10:54; Stop 08/24/16 at 10:55; Status DC Midazolam HCl (Versed) 2 mg 1X ONCE IV Last administered on 08/24/16 12:30; Start 08/24/16 at 12:30; Stop 08/24/16 at 12:31; Status DC Midazolam HCl (Versed) 2 mg STK-MED ONCE .ROUTE ; Start 08/24/16 at 11:58; Stop 08/24/16 at 11:59; Status DC Midazolam HCl 2 mg 2 mg STK-MED ONCE .ROUTE ; Start 08/24/16 at 11:26; Stop 03/02 at 11:27; Status DC Mineral Oil (Fleet Mineral Oil) 133 ml PRN DAILY PRN [place] CONSTIPATION; Start 03/02 at 19:30 Warfarin Sodium (Coumadin) 4 mg 1X WARF ONCE PO Last administered on 18:08; Start 08/24/16 at 16:00; Stop 08/24/16 at 16:01; Status DC Vitals/I & O Vital Sign - Last 24 Hours 08/24/16 08/24/16 08/24/16 08/24/16 12:30 12:40 13:00 14:46 Temp 97.6 97.6 Pulse 66 62 Resp 14 14 20 B/P 101/58 Pulse Ox 95 95 92 O2 Delivery Room Air Room Air Room Air Room Air 08/24/16 08/24/16 08/24/16 08/24/16 18:08 19:20 20:00 22:49 Temp 97.7 97.9 97.7 97.9 Pulse 108 63 Resp 16 16 B/P 99/61 103/58 116/59 Pulse Ox 99 98 O2 Delivery Room Air Room Air Room Air 08/25/16 08/25/16 02:59 07:45 Temp 98.3 97.7 98.3 97.7 Pulse 65 60 Resp 18 18 B/P 99/62 108/59 Pulse Ox 98 93 O2 Delivery Room Air Room Air Intake and Output 08/24/16 08/24/16 08/25/16 15:00 23:00 07:00 Intake Total 200 ml 110 ml Output Total 400 ml 200 ml 150 ml Balance -400 ml 0 ml -40 ml AFSHAN SLADE MD Aug 25, 2016 09:32
--- NOTE | 2016-08-25 10:58 | PDOC ---
Renal-Progress Notes Subjective Notes Notes NONE History of Present Illness Hx of present illness NO CHANGE Vitals Vitals Vital Signs Date Time Temp Pulse Resp B/P Pulse Ox O2 Delivery O2 Flow Rate FiO2 08/25/16 07:45 97.7 60 18 108/59 93 Room Air 97.7 Weight Weight [ ] I.O. Intake and Output Intake and Output 08/25/16 07:00 Intake Total 310 ml Output Total 750 ml Balance -440 ml Intake Oral 310 ml Output Urine Total 750 ml # Bowel Movements 1 Labs Labs Laboratory Tests Test 08/24/16 13:38 08/24/16 17:12 08/24/16 20:58 08/25/16 04:55 Glucose (Fingerstick) 123mg/dL (70-99) 103mg/dL (70-99) 110mg/dL (70-99) White Blood Count 5.2x10^3/uL (4.0-11.0) Red Blood Count 3.73x10^6/uL (4.30-5.70) Hemoglobin 9.4g/dL (13.0-17.5) Hematocrit 29.6% (39.0-53.0) Mean Corpuscular Volume 79fL (79-100) Mean Corpuscular Hemoglobin 25pg (25-35) Mean Corpuscular Hemoglobin Concent 32g/dL (31-37) Red Cell Distribution Width 20.2% (11.5-14.5) Platelet Count 126x10^3/uL (140-400) Prothrombin Time 22.5SEC (11.7-14.0) Prothromb Time International Ratio 2.1 (0.8-1.1) Sodium Level 135mmol/L (136-145) Potassium Level 3.7mmol/L (3.5-5.1) Chloride Level 101mmol/L (98-107) Carbon Dioxide Level 21mmol/L (21-32) Anion Gap 13 (6-14) Blood Urea Nitrogen 103mg/dL (8-26) Creatinine 2.8mg/dL (0.7-1.3) Estimated GFR (Cockcroft-Gault) 27.0 Glucose Level 126mg/dL (70-99) Calcium Level 7.8mg/dL (8.5-10.1) Total Bilirubin 0.5mg/dL (0.2-1.0) Direct Bilirubin 0.3mg/dL (0.0-0.2) Aspartate Amino Transf (AST/SGOT) 17U/L (15-37) Alanine Aminotransferase (ALT/SGPT) 19U/L (16-63) Alkaline Phosphatase 75U/L (46-116) Total Protein 5.6g/dL (6.4-8.2) Albumin 2.7g/dL (3.4-5.0) Test 08/25/16 08:10 Glucose (Fingerstick) 107mg/dL (70-99) Micro Micro Microbiology 08/15/16 Urine Culture - Final, Complete 08/15/16 Urine Culture Result 1 (JV) - Final, Complete 08/15/16 Urine Culture Result 2 (JV) - Final, Complete 08/15/16 Antimicrobic Susceptibility - Final, Complete Review of Systems Constitutional: yes: alert, oriented, weakness Ears/Nose/Throat: Yes: no symptom reported Eyes: Yes: no symptom reported Pulmonary: Yes no symptom reported Gastrointestional: Yes: no symptom reported Genitourinary: Yes: retention Musculoskeletal: Yes: no symptom reported Skin: Yes no symptom reported Physical Exam General Appearance: no apparent distress Skin: warm Respiratory: bilateral CTA Heart: S1S2, no thrills Abdomen: GT edema Extremities: pulses present, no edema Neurology: alert Assessment Assessment IMP ESRD ANEMIA URINARY RETENTION HYPOTONIC BLADDER S/P TUNNELED HD CATHETER PLAN CONT RASHI HD TODAY AT 2.5 HRS QB OF 350 MINIMUM UF CHECK HEP PANEL 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
--- NOTE | 2016-08-25 11:57 | PDOC ---
PROGRESS NOTES Subjective Subjective Patient had bowel movement overnight. Denies any complaints. Denies SOB, CP, palpitations. Objective Objective Vital Signs Date Time Temp Pulse Resp B/P Pulse Ox O2 Delivery O2 Flow Rate FiO2 08/25/16 07:45 97.7 60 18 108/59 93 Room Air 97.7 08/23/16 20:15 1.0 Intake and Output 08/25/16 07:00 Intake Total 310 ml Output Total 750 ml Balance -440 ml Intake Oral 310 ml Output Urine Total 750 ml # Bowel Movements 1 Physical Exam Abdomen: Normal bowel sounds, Soft Heart: Regular rate, Normal S1, Normal S2, Other (1-2/6 systolic murmur) Extremities: Other (bilateral 2+ edema in lower extremities) General: Alert, Oriented X3, Cooperative, No acute distress HEENT: EOMI Lungs: Clear to auscultation Neuro: Normal speech Assessment Assessment End Stage Dilated Cardiomyopathy Chronic CHF Problems Medical Problems: (1) Acute on chronic renal failure Status: Acute Plan Plan of Care - Patient undergoing dialysis - Constipation resolved - Continue on current dobutamine drip - Continue to monitor her - SW has been able to set up for her dobutamine infusions once she is discharged. I had a long conversation with the pt's daughter that lives in [place] about the pt moving to [place] and living there. She needs to set up dialysis and dobutamine infusions in [place] before moving there. Thank you for your consultation! Comment Review of Relevant I have reviewed the following items marquise (where applicable) has been applied. Labs Laboratory Tests Test 08/23/16 20:44 08/24/16 03:30 08/24/16 07:58 08/24/16 13:38 Glucose (Fingerstick) 125mg/dL (70-99) 140mg/dL (70-99) 123mg/dL (70-99) White Blood Count 5.5x10^3/uL (4.0-11.0) Red Blood Count 3.76x10^6/uL (4.30-5.70) Hemoglobin 9.5g/dL (13.0-17.5) Hematocrit 29.9% (39.0-53.0) Mean Corpuscular Volume 80fL (79-100) Mean Corpuscular Hemoglobin 25pg (25-35) Mean Corpuscular Hemoglobin Concent 32g/dL (31-37) Red Cell Distribution Width 19.9% (11.5-14.5) Platelet Count 125x10^3/uL (140-400) Neutrophils (%) (Auto) 77% (31-73) Lymphocytes (%) (Auto) 10% (24-48) Monocytes (%) (Auto) 11% (0-9) Eosinophils (%) (Auto) 2% (0-3) Basophils (%) (Auto) 1% (0-3) Neutrophils # (Auto) 4.2x10^3uL (1.8-7.7) Lymphocytes # (Auto) 0.5x10^3/uL (1.0-4.8) Monocytes # (Auto) 0.6x10^3/uL (0.0-1.1) Eosinophils # (Auto) 0.1x10^3/uL (0.0-0.7) Basophils # (Auto) 0.0x10^3/uL (0.0-0.2) Prothrombin Time 21.0SEC (11.7-14.0) Prothromb Time International Ratio 1.9 (0.8-1.1) Sodium Level 135mmol/L (136-145) Potassium Level 4.0mmol/L (3.5-5.1) Chloride Level 101mmol/L (98-107) Carbon Dioxide Level 22mmol/L (21-32) Anion Gap 12 (6-14) Blood Urea Nitrogen 104mg/dL (8-26) Creatinine 3.0mg/dL (0.7-1.3) Estimated GFR (Cockcroft-Gault) 24.9 Glucose Level 141mg/dL (70-99) Calcium Level 8.0mg/dL (8.5-10.1) Hepatitis B Core Total Antibody Negative (Negative) Test 08/24/16 17:12 08/24/16 20:58 08/25/16 04:55 08/25/16 08:10 Glucose (Fingerstick) 103mg/dL (70-99) 110mg/dL (70-99) 107mg/dL (70-99) White Blood Count 5.2x10^3/uL (4.0-11.0) Red Blood Count 3.73x10^6/uL (4.30-5.70) Hemoglobin 9.4g/dL (13.0-17.5) Hematocrit 29.6% (39.0-53.0) Mean Corpuscular Volume 79fL (79-100) Mean Corpuscular Hemoglobin 25pg (25-35) Mean Corpuscular Hemoglobin Concent 32g/dL (31-37) Red Cell Distribution Width 20.2% (11.5-14.5) Platelet Count 126x10^3/uL (140-400) Prothrombin Time 22.5SEC (11.7-14.0) Prothromb Time International Ratio 2.1 (0.8-1.1) Sodium Level 135mmol/L (136-145) Potassium Level 3.7mmol/L (3.5-5.1) Chloride Level 101mmol/L (98-107) Carbon Dioxide Level 21mmol/L (21-32) Anion Gap 13 (6-14) Blood Urea Nitrogen 103mg/dL (8-26) Creatinine 2.8mg/dL (0.7-1.3) Estimated GFR (Cockcroft-Gault) 27.0 Glucose Level 126mg/dL (70-99) Calcium Level 7.8mg/dL (8.5-10.1) Total Bilirubin 0.5mg/dL (0.2-1.0) Direct Bilirubin 0.3mg/dL (0.0-0.2) Aspartate Amino Transf (AST/SGOT) 17U/L (15-37) Alanine Aminotransferase (ALT/SGPT) 19U/L (16-63) Alkaline Phosphatase 75U/L (46-116) Total Protein 5.6g/dL (6.4-8.2) Albumin 2.7g/dL (3.4-5.0) Laboratory Tests Test 08/24/16 13:38 08/24/16 17:12 08/24/16 20:58 08/25/16 04:55 Glucose (Fingerstick) 123mg/dL (70-99) 103mg/dL (70-99) 110mg/dL (70-99) White Blood Count 5.2x10^3/uL (4.0-11.0) Red Blood Count 3.73x10^6/uL (4.30-5.70) Hemoglobin 9.4g/dL (13.0-17.5) Hematocrit 29.6% (39.0-53.0) Mean Corpuscular Volume 79fL (79-100) Mean Corpuscular Hemoglobin 25pg (25-35) Mean Corpuscular Hemoglobin Concent 32g/dL (31-37) Red Cell Distribution Width 20.2% (11.5-14.5) Platelet Count 126x10^3/uL (140-400) Prothrombin Time 22.5SEC (11.7-14.0) Prothromb Time International Ratio 2.1 (0.8-1.1) Sodium Level 135mmol/L (136-145) Potassium Level 3.7mmol/L (3.5-5.1) Chloride Level 101mmol/L (98-107) Carbon Dioxide Level 21mmol/L (21-32) Anion Gap 13 (6-14) Blood Urea Nitrogen 103mg/dL (8-26) Creatinine 2.8mg/dL (0.7-1.3) Estimated GFR (Cockcroft-Gault) 27.0 Glucose Level 126mg/dL (70-99) Calcium Level 7.8mg/dL (8.5-10.1) Total Bilirubin 0.5mg/dL (0.2-1.0) Direct Bilirubin 0.3mg/dL (0.0-0.2) Aspartate Amino Transf (AST/SGOT) 17U/L (15-37) Alanine Aminotransferase (ALT/SGPT) 19U/L (16-63) Alkaline Phosphatase 75U/L (46-116) Total Protein 5.6g/dL (6.4-8.2) Albumin 2.7g/dL (3.4-5.0) Test 08/25/16 08:10 Glucose (Fingerstick) 107mg/dL (70-99) Microbiology 08/15/16 Urine Culture - Final, Complete 08/15/16 Urine Culture Result 1 (JV) - Final, Complete 08/15/16 Urine Culture Result 2 (JV) - Final, Complete 08/15/16 Antimicrobic Susceptibility - Final, Complete Medications Current Medications Insulin Aspart (Novolog) 0-5 UNITS TIDWMEALS SQ ; Start 08/14/16 at 17:30 Dextrose 12.5 gm 12.5 gm PRN Q15MIN PRN IV SEE COMMENTS; Start 08/14/16 at 16: 45 Sodium Chloride (Iv Sodium Chloride 0.9% 1000ml Bag) 1,000 ml @ 100 mls/hr Q10H IV Last administered on 08/14/16 18:53; Start 08/14/16 at 17:30; Stop 08/15/16 at 03:29; Status DC Amiodarone HCl (Cordarone) 200 mg DAILY PO Last administered on 08/24/16 09:24 ; Start 08/15/16 at 09:00 Aspirin (Ecotrin) 81 mg DAILY PO Last administered on 08/24/16 09:23; Start at 09:00 Atorvastatin Calcium (Lipitor) 40 mg QHS PO Last administered on 08/24/16 20: 59; Start 08/14/16 at 21:00 Carvedilol (Coreg) 6.25 mg BIDWMEALS PO Last administered on 08/24/16 18:08; Start 08/14/16 at 17:30 Colestipol HCl (Colestid) 1 gm TID PO Last administered on 08/17/16 20:55; Start 08/14/16 at 21:00; Stop 08/18/16 at 10:08; Status DC Metoclopramide HCl (Reglan) 5 mg PRN BID PRN PO NAUSEA; Start 08/14/16 at 16:45 ; Stop 08/16/16 at 10:25; Status DC Sacubitril/ Valsartan (Entresto 24 Mg-26 Mg) 1 tab BID PO Last administered on 08/17/16 09:14; Start 08/14/16 at 21:00; Stop 08/17/16 at 10:16; Status DC Warfarin Sodium (Coumadin) 2.5 mg DAILY16 PO Last administered on 08/14/16 18: 50; Start 08/14/16 at 18:00; Stop 08/15/16 at 14:13; Status DC Warfarin Sodium (Coumadin Per Physician) 1 each PRN DAILY PRN MC SEE COMMENTS; Start 08/14/16 at 17:15; Stop 08/15/16 at 09:54; Status DC Sodium Polystyrene Sulfonate (Kayexalate) 60 gm 1X ONCE PO Last administered on 08/14/16 18:51; Start 08/14/16 at 18:30; Stop 08/14/16 at 18:31; Status DC Warfarin Sodium (Coumadin Per Pharmacy) 1 each PRN DAILY PRN MC SEE COMMENTS Last administered on 08/24/16 12:37; Start 08/15/16 at 10:00 Pantoprazole Sodium 40 mg 40 mg DAILYAC PO Last administered on 08/25/16 05:58 ; Start 08/15/16 at 11:30 Dobutamine HCl/ Dextrose 250 ml @ 0 mls/hr CONT PRN IV ; Start 08/15/16 at 14:00 ; Stop 08/15/16 at 14:53; Status DC Albumin Human (Albuminar) 100 ml @ 100 mls/hr 1X ONCE IV Last administered on 08/15/16 15:25; Start 08/15/16 at 14:00; Stop 08/15/16 at 14:59; Status DC Furosemide 40 mg 40 mg 1X ONCE IVP Last administered on 08/15/16 16:22; Start 08/15/16 at 15:00; Stop 08/15/16 at 15:01; Status DC Albumin Human (Albuminar) 100 ml @ 100 mls/hr 1X ONCE IV Last administered on 08/16/16 08:41; Start 08/16/16 at 09:00; Stop 08/16/16 at 09:59; Status DC Furosemide (Lasix) 40 mg 1X ONCE IVP Last administered on 08/16/16 09:45; Start 08/16/16 at 10:00; Stop 08/16/16 at 10:01; Status DC Warfarin Sodium 4 mg 4 mg 1X WARF ONCE PO Last administered on 08/15/16 16:33 ; Start 08/15/16 at 16:00; Stop 08/15/16 at 16:01; Status DC Dobutamine HCl/ Dextrose 250 ml @ 0 mls/hr CONT PRN PRN IV SEE I/O RECORD Last administered on 08/23/16 11:01; Start 08/15/16 at 14:53 Sodium Bicarbonate 50 meq 50 meq Q2HR IV Last administered on 08/15/16 18:20; Start 08/15/16 at 16:00; Stop 08/15/16 at 18:30; Status DC Magnesium Sulfate/ Dextrose (Magnesium Sulfate PREMIX 2GM) 50 ml @ 25 mls/hr PRN DAILY PRN IV for Mag < 1.7 on am labs; Start 08/15/16 at 15:30 Warfarin Sodium (Coumadin) 4 mg 1X WARF ONCE PO Last administered on 08/16/16 17:28; Start 08/16/16 at 16:00; Stop 08/16/16 at 16:01; Status DC Ondansetron HCl 4 mg 4 mg PRN Q6HRS PRN IV nausea Last administered on 18:09; Start 08/16/16 at 20:30 Ceftriaxone Sodium 1 gm/ Sodium Chloride 50 ml @ 100 mls/hr Q24H IV Last administered on 08/19/16 10:00; Start 08/17/16 at 10:00; Stop 08/19/16 at 12:56; Status DC Sodium Chloride (Iv Sodium Chloride 0.9% 1000ml Bag) 1,000 ml @ 75 mls/hr [id number] IV Last administered on 08/19/16 16:58; Start 08/17/16 at 10:15; Stop at 09:27; Status DC Warfarin Sodium (Coumadin) 5 mg 1X WARF ONCE PO ; Start 08/17/16 at 16:00; Stop 08/17/16 at 16:01; Status DC Heparin Sodium/ Sodium Chloride 1,000 unit 1X ONCE IART Last administered on 11:45; Start 08/18/16 at 11:30; Stop 08/18/16 at 11:31; Status DC Midazolam HCl (Versed) 2 mg 1X ONCE IV Last administered on 08/18/16 11:46; Start 08/18/16 at 11:30; Stop 08/18/16 at 11:31; Status DC Fentanyl Citrate (Fentanyl 2ml Vial) 100 mcg 1X ONCE IV Last administered on 11:47; Start 08/18/16 at 11:30; Stop 08/18/16 at 11:31; Status DC Lidocaine/ Epinephrine 15 ml 15 ml 1X ONCE IJ Last administered on 08/18/16 11 :44; Start 08/18/16 at 11:30; Stop 08/18/16 at 11:31; Status DC Vancomycin HCl 250 ml @ 250 mls/hr 1X ONCE IRR Last administered on 08/18/16 11:45; Start 08/18/16 at 11:30; Stop 08/18/16 at 12:29; Status DC Heparin Sodium (Porcine) (Hep Lock Adult) 500 unit 1X ONCE IV Last administered on 08/18/16 11:46; Start 08/18/16 at 11:30; Stop 08/18/16 at 11:31; Status DC Heparin Sodium (Porcine) (Hep Lock Adult) 500 unit STK-MED ONCE IV ; Start at 09:29; Stop 08/18/16 at 11:42; Status DC Lidocaine/ Epinephrine 20 ml 20 ml STK-MED ONCE .ROUTE ; Start 08/18/16 at 09:29 ; Stop 08/18/16 at 11:42; Status DC Heparin Sodium/ Sodium Chloride 500 ml @ As Directed STK-MED ONCE .ROUTE ; Start 08/18/16 at 09:29; Stop 08/18/16 at 11:42; Status DC Vancomycin HCl 250 ml @ As Directed STK-MED ONCE .ROUTE ; Start 08/18/16 at 09: 29; Stop 08/18/16 at 11:42; Status DC Fentanyl Citrate (Fentanyl 2ml Vial) 100 mcg STK-MED ONCE .ROUTE ; Start at 10:29; Stop 08/18/16 at 11:43; Status DC Midazolam HCl 2 mg 2 mg STK-MED ONCE .ROUTE ; Start 08/18/16 at 10:30; Stop at 11:43; Status DC Iron Sucrose/ Sodium Chloride (Venofer/Iv Sodium Chloride 0.9% 100ml) 110 ml @ 55 mls/hr 3X/WEEK IV Last administered on 08/24/16 14:40; Start 08/19/16 at 09: 00; Stop 08/28/16 at 10:59 Warfarin Sodium (Coumadin) 5 mg 1X WARF ONCE PO Last administered on 08/18/16 17:56; Start 08/18/16 at 16:00; Stop 08/18/16 at 16:01; Status DC Warfarin Sodium (Coumadin) 3 mg 1X WARF ONCE PO ; Start 08/19/16 at 16:00; Stop 08/19/16 at 16:01; Status Cancel Cefpodoxime Proxetil (Vantin) 100 mg BID PO Last administered on 08/24/16 20: 59; Start 08/19/16 at 21:00 Warfarin Sodium (Coumadin) 2.5 mg 1X WARF ONCE PO Last administered on 16:59; Start 08/19/16 at 16:00; Stop 08/19/16 at 16:01; Status DC Senna/Docusate Sodium 1 tab 1 tab PRN BID PRN PO CONSTIPATION Last administered on 08/20/16 14:18; Start 08/19/16 at 13:30; Stop 08/20/16 at 14:43; Status DC Sodium Chloride 250 ml @ 0 mls/hr 1X ONCE IV Last administered on 08/19/16 14: 33; Start 08/19/16 at 13:45; Stop 08/19/16 at 13:53; Status DC Sodium Chloride (Iv Sodium Chloride 0.9% 500ml Bag) 500 ml @ 0 mls/hr 1X ONCE IV Last administered on 08/19/16 16:58; Start 08/19/16 at 16:00; Stop 08/19/16 at 16:01; Status DC Senna/Docusate Sodium (Senna Plus) 1 tab PRN BID PRN PO CONSTIPATION Last administered on 08/23/16 11:01; Start 08/20/16 at 10:00 Bisacodyl (Dulcolax Supp) 10 mg 1X ONCE [place] ; Start 08/20/16 at 11:00; Stop at 11:00; Status DC Bisacodyl (Dulcolax Supp) 10 mg 1X ONCE [place] Last administered on 08/20/16 16:49 ; Start 08/20/16 at 14:30; Stop 08/20/16 at 14:31; Status DC Warfarin Sodium (Coumadin) 2 mg 1X WARF ONCE PO Last administered on 08/20/16 16:48; Start 08/20/16 at 16:00; Stop 08/20/16 at 16:01; Status DC Mineral Oil (Fleet Mineral Oil) 133 ml 1X ONCE [place] ; Start 08/21/16 at 20:00; Stop 08/21/16 at 20:00; Status DC Non-Formulary Medication 1 ea Q4H PO Last administered on 08/21/16 16:18; Start 08/21/16 at 12:00; Stop 08/21/16 at 16:01; Status DC Sodium Bicarbonate 50 meq Q6H IV Last administered on 08/21/16 20:16; Start 08/21/16 at 14:00; Stop 08/21/16 at 20:01; Status DC Warfarin Sodium (Coumadin) 3 mg 1X WARF ONCE PO Last administered on 08/21/16 16:16; Start 08/21/16 at 16:00; Stop 08/21/16 at 16:01; Status DC Warfarin Sodium (Coumadin) 2.5 mg 1X WARF ONCE PO Last administered on 16:00; Start 08/22/16 at 16:00; Stop 08/22/16 at 16:01; Status DC Warfarin Sodium (Coumadin) 3 mg 1X WARF ONCE PO Last administered on 08/23/16 18:28; Start 08/23/16 at 16:00; Stop 08/23/16 at 16:01; Status DC Lidocaine/ Epinephrine (Xylocaine 2%-Epi 1:100,000) 20 ml STK-MED ONCE .ROUTE ; Start 08/24/16 at 10:54; Stop 08/24/16 at 10:55; Status DC Heparin Sodium (Porcine) 99923 unit 10,000 unit STK-MED ONCE .ROUTE ; Start 03/02 at 10:54; Stop 08/24/16 at 10:55; Status DC Heparin Sodium/ Sodium Chloride 500 ml @ As Directed STK-MED ONCE .ROUTE ; Start 08/24/16 at 10:54; Stop 08/24/16 at 10:55; Status DC Darbepoetin Dino (Aranesp) 60 mcg WEEKLYHS SQ Last administered on 08/24/16 20 :59; Start 08/24/16 at 21:00 Fentanyl Citrate (Fentanyl 2ml Vial) 100 mcg STK-MED ONCE .ROUTE ; Start at 11:26; Stop 08/24/16 at 11:27; Status DC Midazolam HCl 2 mg 2 mg STK-MED ONCE .ROUTE ; Start 08/24/16 at 11:26; Stop 03/02 at 11:27; Status DC Cefazolin Sodium (Ancef 1gm Ivpb For Omni) 0 ml @ As Directed STK-MED ONCE IV ; Start 08/24/16 at 11:26; Stop 08/24/16 at 11:27; Status DC Heparin Sodium/ Sodium Chloride 1,000 unit 1X ONCE IART Last administered on 12:23; Start 08/24/16 at 11:45; Stop 08/24/16 at 11:46; Status DC Lidocaine/ Epinephrine (Xylocaine 2%-Epi 1:100,000) 20 ml 1X ONCE IJ Last administered on 08/24/16 12:23; Start 08/24/16 at 11:45; Stop 08/24/16 at 11:46 ; Status DC Fentanyl Citrate (Fentanyl 2ml Vial) 100 mcg STK-MED ONCE .ROUTE ; Start at 11:58; Stop 08/24/16 at 11:59; Status DC Midazolam HCl (Versed) 2 mg STK-MED ONCE .ROUTE ; Start 08/24/16 at 11:58; Stop 08/24/16 at 11:59; Status DC Heparin Sodium (Porcine) (Heparin Sodium) 4,300 unit 1X ONCE IV Last administered on 08/24/16 12:15; Start 08/24/16 at 12:15; Stop 08/24/16 at 12:21 ; Status DC Midazolam HCl (Versed) 2 mg 1X ONCE IV Last administered on 08/24/16 12:30; Start 08/24/16 at 12:30; Stop 08/24/16 at 12:31; Status DC Fentanyl Citrate 100 mcg 100 mcg 1X ONCE IV Last administered on 08/24/16 12: 30; Start 08/24/16 at 12:30; Stop 08/24/16 at 12:31; Status DC Cefazolin Sodium (Ancef 1gm Ivpb For Omni) 50 ml @ 100 mls/hr 1X ONCE IV Last administered on 08/24/16 12:29; Start 08/24/16 at 12:30; Stop 08/24/16 at 12:59; Status DC Warfarin Sodium (Coumadin) 4 mg 1X WARF ONCE PO Last administered on 18:08; Start 08/24/16 at 16:00; Stop 08/24/16 at 16:01; Status DC Mineral Oil (Fleet Mineral Oil) 133 ml PRN DAILY PRN [place] CONSTIPATION; Start 03/02 at 19:30 Active Scripts Active Entresto 24 mg-26 mg Tablet (Sacubitril/Valsartan) 1 Each Tablet 1 Tab PO BID Coumadin (Warfarin Sodium) 2.5 Mg Tablet 2.5 Mg PO DAILY16 Reported Reglan (Metoclopramide Hcl) 10 Mg Tablet 5 Mg PO PRN BID PRN Atorvastatin Calcium 40 Mg Tablet 1 Tab PO DAILY Colestid (Colestipol Hcl) 1 Gm Tablet 1 Gm PO TID Pacerone (Amiodarone Hcl) 200 Mg Tablet 200 Mg PO DAILY Lasix (Furosemide) 80 Mg Tablet 1 Tab PO BID Gabapentin 100 Mg Capsule 1 Cap PO TID Aspir 81 (Aspirin) 81 Mg Tablet.dr 1 Tab PO DAILY Coreg (Carvedilol) 6.25 Mg Tablet 1 Tab PO BID K-Tab ER (Potassium Chloride) 20 Meq Tablet.er 20 Meq PO BID Vitals/I & O Vital Sign - Last 24 Hours 08/24/16 08/24/16 08/24/16 08/24/16 12:30 12:40 13:00 14:46 Temp 97.6 97.6 Pulse 66 62 Resp 14 14 20 B/P 101/58 Pulse Ox 95 95 92 O2 Delivery Room Air Room Air Room Air Room Air 08/24/16 08/24/16 08/24/16 08/24/16 18:08 19:20 20:00 22:49 Temp 97.7 97.9 97.7 97.9 Pulse 108 63 Resp 16 16 B/P 99/61 103/58 116/59 Pulse Ox 99 98 O2 Delivery Room Air Room Air Room Air 08/25/16 08/25/16 02:59 07:45 Temp 98.3 97.7 98.3 97.7 Pulse 65 60 Resp 18 18 B/P 99/62 108/59 Pulse Ox 98 93 O2 Delivery Room Air Room Air Intake and Output 08/24/16 08/24/16 08/25/16 15:00 23:00 07:00 Intake Total 200 ml 110 ml Output Total 400 ml 200 ml 150 ml Balance -400 ml 0 ml -40 ml HEATHER CHERRY MD Aug 25, 2016 11:57
[2016-08-25] MEDS ORDERED: DIALYSIS PATIENT. MC PRN ×2 (12:45)
[2016-08-25] MEDS: AMIODARONE HCL 200 MG TABLET. PO SCH (12:53)
[2016-08-25] MEDS: ASPIRIN ENTERIC COATED 81 MG TABLET.DR. PO SCH (12:53)
[2016-08-25] MEDS: CARVEDILOL 6.25 MG TABLET. PO SCH ×2 (12:54→17:00)
[2016-08-25] MEDS: CEFPODOXIME PROXETIL 100 MG TABLET. PO SCH ×2 (12:54→21:19)
[2016-08-25] MEDS ORDERED: WARFARIN 4 MG TABLET. PO ONE (16:00)
[2016-08-25] MEDS: TRAMADOL 50 MG TABLET. PO PRN (16:12)
[2016-08-25] MEDS: ATORVASTATIN CALCIUM 40 MG TABLET. PO SCH (21:19)
[2016-08-26 03:30] VITALS: BP 108/66
[2016-08-26 05:50] LABS: INR 2.1 (0.8-1.1); PROTHROMBIN TIME PATIENT 22.1 SEC (11.7-14.0)
[2016-08-26 06:03] LABS: CALCIUM 8.1 mg/dL (8.5-10.1); CREATININE 2.2 mg/dL (0.7-1.3); GFR 35.7; POTASSIUM 3.8 mmol/L (3.5-5.1)
[2016-08-26] MEDS ORDERED: DIALYSIS PATIENT. MC PRN (06:45)
[2016-08-26] MEDS: INSULIN ASPART 300 UNITS/3 ML INSULN.PEN SQ SCH ×3 (08:00→17:00)
--- NOTE | 2016-08-26 09:48 | PDOC ---
PROGRESS NOTES Subjective Subjective No new complaints. Objective Objective Vital Signs Date Time Temp Pulse Resp B/P Pulse Ox O2 Delivery O2 Flow Rate FiO2 08/26/16 03:30 98.4 74 16 108/66 93 Room Air 98.4 08/23/16 20:15 1.0 Intake and Output 08/26/16 07:00 Intake Total 429 ml Output Total 350 ml Balance 79 ml Intake Oral 350 ml Other 79 ml Output Urine Total 350 ml # Bowel Movements 1 Physical Exam Physical Exam She is comfortable receiving hemodialysis.Dressing in place to right heel. Assessment Assessment Problems Medical Problems: (1) Acute on chronic renal failure Status: Acute Plan Plan of Care To get her up as tolerated. Comment Review of Relevant I have reviewed the following items marquise (where applicable) has been applied. Labs Laboratory Tests Test 08/24/16 13:38 08/24/16 17:12 08/24/16 20:58 08/25/16 04:55 Glucose (Fingerstick) 123mg/dL (70-99) 103mg/dL (70-99) 110mg/dL (70-99) White Blood Count 5.2x10^3/uL (4.0-11.0) Red Blood Count 3.73x10^6/uL (4.30-5.70) Hemoglobin 9.4g/dL (13.0-17.5) Hematocrit 29.6% (39.0-53.0) Mean Corpuscular Volume 79fL (79-100) Mean Corpuscular Hemoglobin 25pg (25-35) Mean Corpuscular Hemoglobin Concent 32g/dL (31-37) Red Cell Distribution Width 20.2% (11.5-14.5) Platelet Count 126x10^3/uL (140-400) Prothrombin Time 22.5SEC (11.7-14.0) Prothromb Time International Ratio 2.1 (0.8-1.1) Sodium Level 135mmol/L (136-145) Potassium Level 3.7mmol/L (3.5-5.1) Chloride Level 101mmol/L (98-107) Carbon Dioxide Level 21mmol/L (21-32) Anion Gap 13 (6-14) Blood Urea Nitrogen 103mg/dL (8-26) Creatinine 2.8mg/dL (0.7-1.3) Estimated GFR (Cockcroft-Gault) 27.0 Glucose Level 126mg/dL (70-99) Calcium Level 7.8mg/dL (8.5-10.1) Total Bilirubin 0.5mg/dL (0.2-1.0) Direct Bilirubin 0.3mg/dL (0.0-0.2) Aspartate Amino Transf (AST/SGOT) 17U/L (15-37) Alanine Aminotransferase (ALT/SGPT) 19U/L (16-63) Alkaline Phosphatase 75U/L (46-116) Total Protein 5.6g/dL (6.4-8.2) Albumin 2.7g/dL (3.4-5.0) Test 08/25/16 08:10 08/25/16 12:48 08/25/16 17:16 08/25/16 20:36 Glucose (Fingerstick) 107mg/dL (70-99) 111mg/dL (70-99) 114mg/dL (70-99) 114mg/dL (70-99) Test 08/26/16 04:50 Prothrombin Time 22.1SEC (11.7-14.0) Prothromb Time International Ratio 2.1 (0.8-1.1) Sodium Level 136mmol/L (136-145) Potassium Level 3.8mmol/L (3.5-5.1) Chloride Level 101mmol/L (98-107) Carbon Dioxide Level 26mmol/L (21-32) Anion Gap 9 (6-14) Blood Urea Nitrogen 65mg/dL (8-26) Creatinine 2.2mg/dL (0.7-1.3) Estimated GFR (Cockcroft-Gault) 35.7 Glucose Level 104mg/dL (70-99) Calcium Level 8.1mg/dL (8.5-10.1) Laboratory Tests Test 08/25/16 12:48 08/25/16 17:16 08/25/16 20:36 08/26/16 04:50 Glucose (Fingerstick) 111mg/dL (70-99) 114mg/dL (70-99) 114mg/dL (70-99) Prothrombin Time 22.1SEC (11.7-14.0) Prothromb Time International Ratio 2.1 (0.8-1.1) Sodium Level 136mmol/L (136-145) Potassium Level 3.8mmol/L (3.5-5.1) Chloride Level 101mmol/L (98-107) Carbon Dioxide Level 26mmol/L (21-32) Anion Gap 9 (6-14) Blood Urea Nitrogen 65mg/dL (8-26) Creatinine 2.2mg/dL (0.7-1.3) Estimated GFR (Cockcroft-Gault) 35.7 Glucose Level 104mg/dL (70-99) Calcium Level 8.1mg/dL (8.5-10.1) Microbiology 08/15/16 Urine Culture - Final, Complete 08/15/16 Urine Culture Result 1 (JV) - Final, Complete 08/15/16 Urine Culture Result 2 (JV) - Final, Complete 08/15/16 Antimicrobic Susceptibility - Final, Complete Medications Current Medications Insulin Aspart (Novolog) 0-5 UNITS TIDWMEALS SQ ; Start 08/14/16 at 17:30 Dextrose 12.5 gm 12.5 gm PRN Q15MIN PRN IV SEE COMMENTS; Start 08/14/16 at 16: 45 Sodium Chloride (Iv Sodium Chloride 0.9% 1000ml Bag) 1,000 ml @ 100 mls/hr Q10H IV Last administered on 08/14/16 18:53; Start 08/14/16 at 17:30; Stop 08/15/16 at 03:29; Status DC Amiodarone HCl (Cordarone) 200 mg DAILY PO Last administered on 08/25/16 12:53 ; Start 08/15/16 at 09:00 Aspirin (Ecotrin) 81 mg DAILY PO Last administered on 08/25/16 12:53; Start at 09:00 Atorvastatin Calcium (Lipitor) 40 mg QHS PO Last administered on 08/25/16 21: 19; Start 08/14/16 at 21:00 Carvedilol (Coreg) 6.25 mg BIDWMEALS PO Last administered on 08/25/16 12:54; Start 08/14/16 at 17:30 Colestipol HCl (Colestid) 1 gm TID PO Last administered on 08/17/16 20:55; Start 08/14/16 at 21:00; Stop 08/18/16 at 10:08; Status DC Metoclopramide HCl (Reglan) 5 mg PRN BID PRN PO NAUSEA; Start 08/14/16 at 16:45 ; Stop 08/16/16 at 10:25; Status DC Sacubitril/ Valsartan (Entresto 24 Mg-26 Mg) 1 tab BID PO Last administered on 08/17/16 09:14; Start 08/14/16 at 21:00; Stop 08/17/16 at 10:16; Status DC Warfarin Sodium (Coumadin) 2.5 mg DAILY16 PO Last administered on 08/14/16 18: 50; Start 08/14/16 at 18:00; Stop 08/15/16 at 14:13; Status DC Warfarin Sodium (Coumadin Per Physician) 1 each PRN DAILY PRN MC SEE COMMENTS; Start 08/14/16 at 17:15; Stop 08/15/16 at 09:54; Status DC Sodium Polystyrene Sulfonate (Kayexalate) 60 gm 1X ONCE PO Last administered on 08/14/16 18:51; Start 08/14/16 at 18:30; Stop 08/14/16 at 18:31; Status DC Warfarin Sodium (Coumadin Per Pharmacy) 1 each PRN DAILY PRN MC SEE COMMENTS Last administered on 08/25/16 14:49; Start 08/15/16 at 10:00 Pantoprazole Sodium 40 mg 40 mg DAILYAC PO Last administered on 08/25/16 05:58 ; Start 08/15/16 at 11:30 Dobutamine HCl/ Dextrose 250 ml @ 0 mls/hr CONT PRN IV ; Start 08/15/16 at 14:00 ; Stop 08/15/16 at 14:53; Status DC Albumin Human (Albuminar) 100 ml @ 100 mls/hr 1X ONCE IV Last administered on 08/15/16 15:25; Start 08/15/16 at 14:00; Stop 08/15/16 at 14:59; Status DC Furosemide 40 mg 40 mg 1X ONCE IVP Last administered on 08/15/16 16:22; Start 08/15/16 at 15:00; Stop 08/15/16 at 15:01; Status DC Albumin Human (Albuminar) 100 ml @ 100 mls/hr 1X ONCE IV Last administered on 08/16/16 08:41; Start 08/16/16 at 09:00; Stop 08/16/16 at 09:59; Status DC Furosemide (Lasix) 40 mg 1X ONCE IVP Last administered on 08/16/16 09:45; Start 08/16/16 at 10:00; Stop 08/16/16 at 10:01; Status DC Warfarin Sodium 4 mg 4 mg 1X WARF ONCE PO Last administered on 08/15/16 16:33 ; Start 08/15/16 at 16:00; Stop 08/15/16 at 16:01; Status DC Dobutamine HCl/ Dextrose 250 ml @ 0 mls/hr CONT PRN PRN IV SEE I/O RECORD Last administered on 08/25/16 12:58; Start 08/15/16 at 14:53 Sodium Bicarbonate 50 meq 50 meq Q2HR IV Last administered on 08/15/16 18:20; Start 08/15/16 at 16:00; Stop 08/15/16 at 18:30; Status DC Magnesium Sulfate/ Dextrose (Magnesium Sulfate PREMIX 2GM) 50 ml @ 25 mls/hr PRN DAILY PRN IV for Mag < 1.7 on am labs; Start 08/15/16 at 15:30 Warfarin Sodium (Coumadin) 4 mg 1X WARF ONCE PO Last administered on 08/16/16 17:28; Start 08/16/16 at 16:00; Stop 08/16/16 at 16:01; Status DC Ondansetron HCl 4 mg 4 mg PRN Q6HRS PRN IV nausea Last administered on 18:09; Start 08/16/16 at 20:30 Ceftriaxone Sodium 1 gm/ Sodium Chloride 50 ml @ 100 mls/hr Q24H IV Last administered on 08/19/16 10:00; Start 08/17/16 at 10:00; Stop 08/19/16 at 12:56; Status DC Sodium Chloride (Iv Sodium Chloride 0.9% 1000ml Bag) 1,000 ml @ 75 mls/hr [id number] IV Last administered on 08/19/16 16:58; Start 08/17/16 at 10:15; Stop at 09:27; Status DC Warfarin Sodium (Coumadin) 5 mg 1X WARF ONCE PO ; Start 08/17/16 at 16:00; Stop 08/17/16 at 16:01; Status DC Heparin Sodium/ Sodium Chloride 1,000 unit 1X ONCE IART Last administered on 11:45; Start 08/18/16 at 11:30; Stop 08/18/16 at 11:31; Status DC Midazolam HCl (Versed) 2 mg 1X ONCE IV Last administered on 08/18/16 11:46; Start 08/18/16 at 11:30; Stop 08/18/16 at 11:31; Status DC Fentanyl Citrate (Fentanyl 2ml Vial) 100 mcg 1X ONCE IV Last administered on 11:47; Start 08/18/16 at 11:30; Stop 08/18/16 at 11:31; Status DC Lidocaine/ Epinephrine 15 ml 15 ml 1X ONCE IJ Last administered on 08/18/16 11 :44; Start 08/18/16 at 11:30; Stop 08/18/16 at 11:31; Status DC Vancomycin HCl 250 ml @ 250 mls/hr 1X ONCE IRR Last administered on 08/18/16 11:45; Start 08/18/16 at 11:30; Stop 08/18/16 at 12:29; Status DC Heparin Sodium (Porcine) (Hep Lock Adult) 500 unit 1X ONCE IV Last administered on 08/18/16 11:46; Start 08/18/16 at 11:30; Stop 08/18/16 at 11:31; Status DC Heparin Sodium (Porcine) (Hep Lock Adult) 500 unit STK-MED ONCE IV ; Start at 09:29; Stop 08/18/16 at 11:42; Status DC Lidocaine/ Epinephrine 20 ml 20 ml STK-MED ONCE .ROUTE ; Start 08/18/16 at 09:29 ; Stop 08/18/16 at 11:42; Status DC Heparin Sodium/ Sodium Chloride 500 ml @ As Directed STK-MED ONCE .ROUTE ; Start 08/18/16 at 09:29; Stop 08/18/16 at 11:42; Status DC Vancomycin HCl 250 ml @ As Directed STK-MED ONCE .ROUTE ; Start 08/18/16 at 09: 29; Stop 08/18/16 at 11:42; Status DC Fentanyl Citrate (Fentanyl 2ml Vial) 100 mcg STK-MED ONCE .ROUTE ; Start at 10:29; Stop 08/18/16 at 11:43; Status DC Midazolam HCl 2 mg 2 mg STK-MED ONCE .ROUTE ; Start 08/18/16 at 10:30; Stop at 11:43; Status DC Iron Sucrose/ Sodium Chloride (Venofer/Iv Sodium Chloride 0.9% 100ml) 110 ml @ 55 mls/hr 3X/WEEK IV Last administered on 08/24/16 14:40; Start 08/19/16 at 09: 00; Stop 08/28/16 at 10:59 Warfarin Sodium (Coumadin) 5 mg 1X WARF ONCE PO Last administered on 08/18/16 17:56; Start 08/18/16 at 16:00; Stop 08/18/16 at 16:01; Status DC Warfarin Sodium (Coumadin) 3 mg 1X WARF ONCE PO ; Start 08/19/16 at 16:00; Stop 08/19/16 at 16:01; Status Cancel Cefpodoxime Proxetil (Vantin) 100 mg BID PO Last administered on 08/25/16 21: 19; Start 08/19/16 at 21:00; Stop 08/26/16 at 21:01 Warfarin Sodium (Coumadin) 2.5 mg 1X WARF ONCE PO Last administered on 16:59; Start 08/19/16 at 16:00; Stop 08/19/16 at 16:01; Status DC Senna/Docusate Sodium 1 tab 1 tab PRN BID PRN PO CONSTIPATION Last administered on 08/20/16 14:18; Start 08/19/16 at 13:30; Stop 08/20/16 at 14:43; Status DC Sodium Chloride 250 ml @ 0 mls/hr 1X ONCE IV Last administered on 08/19/16 14: 33; Start 08/19/16 at 13:45; Stop 08/19/16 at 13:53; Status DC Sodium Chloride (Iv Sodium Chloride 0.9% 500ml Bag) 500 ml @ 0 mls/hr 1X ONCE IV Last administered on 08/19/16 16:58; Start 08/19/16 at 16:00; Stop 08/19/16 at 16:01; Status DC Senna/Docusate Sodium (Senna Plus) 1 tab PRN BID PRN PO CONSTIPATION Last administered on 08/23/16 11:01; Start 08/20/16 at 10:00 Bisacodyl (Dulcolax Supp) 10 mg 1X ONCE TN ; Start 08/20/16 at 11:00; Stop at 11:00; Status DC Bisacodyl (Dulcolax Supp) 10 mg 1X ONCE TN Last administered on 08/20/16 16:49 ; Start 08/20/16 at 14:30; Stop 08/20/16 at 14:31; Status DC Warfarin Sodium (Coumadin) 2 mg 1X WARF ONCE PO Last administered on 08/20/16 16:48; Start 08/20/16 at 16:00; Stop 08/20/16 at 16:01; Status DC Mineral Oil (Fleet Mineral Oil) 133 ml 1X ONCE TN ; Start 08/21/16 at 20:00; Stop 08/21/16 at 20:00; Status DC Non-Formulary Medication 1 ea Q4H PO Last administered on 08/21/16 16:18; Start 08/21/16 at 12:00; Stop 08/21/16 at 16:01; Status DC Sodium Bicarbonate 50 meq Q6H IV Last administered on 08/21/16 20:16; Start 08/21/16 at 14:00; Stop 08/21/16 at 20:01; Status DC Warfarin Sodium (Coumadin) 3 mg 1X WARF ONCE PO Last administered on 08/21/16 16:16; Start 08/21/16 at 16:00; Stop 08/21/16 at 16:01; Status DC Warfarin Sodium (Coumadin) 2.5 mg 1X WARF ONCE PO Last administered on 16:00; Start 08/22/16 at 16:00; Stop 08/22/16 at 16:01; Status DC Warfarin Sodium (Coumadin) 3 mg 1X WARF ONCE PO Last administered on 08/23/16 18:28; Start 08/23/16 at 16:00; Stop 08/23/16 at 16:01; Status DC Lidocaine/ Epinephrine (Xylocaine 2%-Epi 1:100,000) 20 ml STK-MED ONCE .ROUTE ; Start 08/24/16 at 10:54; Stop 08/24/16 at 10:55; Status DC Heparin Sodium (Porcine) 05506 unit 10,000 unit STK-MED ONCE .ROUTE ; Start 03/02 at 10:54; Stop 08/24/16 at 10:55; Status DC Heparin Sodium/ Sodium Chloride 500 ml @ As Directed STK-MED ONCE .ROUTE ; Start 08/24/16 at 10:54; Stop 08/24/16 at 10:55; Status DC Darbepoetin Dino (Aranesp) 60 mcg WEEKLYHS SQ Last administered on 08/24/16 20 :59; Start 08/24/16 at 21:00 Fentanyl Citrate (Fentanyl 2ml Vial) 100 mcg STK-MED ONCE .ROUTE ; Start at 11:26; Stop 08/24/16 at 11:27; Status DC Midazolam HCl 2 mg 2 mg STK-MED ONCE .ROUTE ; Start 08/24/16 at 11:26; Stop 03/02 at 11:27; Status DC Cefazolin Sodium (Ancef 1gm Ivpb For Omni) 0 ml @ As Directed STK-MED ONCE IV ; Start 08/24/16 at 11:26; Stop 08/24/16 at 11:27; Status DC Heparin Sodium/ Sodium Chloride 1,000 unit 1X ONCE IART Last administered on 12:23; Start 08/24/16 at 11:45; Stop 08/24/16 at 11:46; Status DC Lidocaine/ Epinephrine (Xylocaine 2%-Epi 1:100,000) 20 ml 1X ONCE IJ Last administered on 08/24/16 12:23; Start 08/24/16 at 11:45; Stop 08/24/16 at 11:46 ; Status DC Fentanyl Citrate (Fentanyl 2ml Vial) 100 mcg STK-MED ONCE .ROUTE ; Start at 11:58; Stop 08/24/16 at 11:59; Status DC Midazolam HCl (Versed) 2 mg STK-MED ONCE .ROUTE ; Start 08/24/16 at 11:58; Stop 08/24/16 at 11:59; Status DC Heparin Sodium (Porcine) (Heparin Sodium) 4,300 unit 1X ONCE IV Last administered on 08/24/16 12:15; Start 08/24/16 at 12:15; Stop 08/24/16 at 12:21 ; Status DC Midazolam HCl (Versed) 2 mg 1X ONCE IV Last administered on 08/24/16 12:30; Start 08/24/16 at 12:30; Stop 08/24/16 at 12:31; Status DC Fentanyl Citrate 100 mcg 100 mcg 1X ONCE IV Last administered on 08/24/16 12: 30; Start 08/24/16 at 12:30; Stop 08/24/16 at 12:31; Status DC Cefazolin Sodium (Ancef 1gm Ivpb For Omni) 50 ml @ 100 mls/hr 1X ONCE IV Last administered on 08/24/16 12:29; Start 08/24/16 at 12:30; Stop 08/24/16 at 12:59; Status DC Warfarin Sodium (Coumadin) 4 mg 1X WARF ONCE PO Last administered on 18:08; Start 08/24/16 at 16:00; Stop 08/24/16 at 16:01; Status DC Mineral Oil (Fleet Mineral Oil) 133 ml PRN DAILY PRN [place] CONSTIPATION; Start 03/02 at 19:30 Info (PHARMACY MONITORING -- do not chart) 1 each PRN DAILY PRN MC SEE COMMENTS ; Start 08/25/16 at 12:45 Info (PHARMACY MONITORING -- do not chart) 1 each PRN DAILY PRN MC SEE COMMENTS ; Start 08/25/16 at 12:45 Warfarin Sodium (Coumadin) 4 mg 1X WARF ONCE PO Last administered on 16:11; Start 08/25/16 at 16:00; Stop 08/25/16 at 16:01; Status DC Tramadol HCl (Ultram) 50 mg PRN TID PRN PO PAIN Last administered on 08/25/16 16:12; Start 08/25/16 at 15:45 Info (PHARMACY MONITORING -- do not chart) 1 each PRN DAILY PRN MC SEE COMMENTS ; Start 08/26/16 at 06:45 Active Scripts Active Entresto 24 mg-26 mg Tablet (Sacubitril/Valsartan) 1 Each Tablet 1 Tab PO BID Coumadin (Warfarin Sodium) 2.5 Mg Tablet 2.5 Mg PO DAILY16 Reported Reglan (Metoclopramide Hcl) 10 Mg Tablet 5 Mg PO PRN BID PRN Atorvastatin Calcium 40 Mg Tablet 1 Tab PO DAILY Colestid (Colestipol Hcl) 1 Gm Tablet 1 Gm PO TID Pacerone (Amiodarone Hcl) 200 Mg Tablet 200 Mg PO DAILY Lasix (Furosemide) 80 Mg Tablet 1 Tab PO BID Gabapentin 100 Mg Capsule 1 Cap PO TID Aspir 81 (Aspirin) 81 Mg Tablet. 1 Tab PO DAILY Coreg (Carvedilol) 6.25 Mg Tablet 1 Tab PO BID K-Tab ER (Potassium Chloride) 20 Meq Tablet.er 20 Meq PO BID Vitals/I & O Vital Sign - Last 24 Hours 08/25/16 08/25/16 08/25/16 08/25/16 12:53 12:54 13:16 15:51 Temp 97.8 97.8 97.8 97.8 Pulse 65 61 61 Resp 14 14 B/P 100/61 100/61 100/61 Pulse Ox 92 92 O2 Delivery Room Air Room Air 08/25/16 08/25/16 08/25/16 08/25/16 15:52 16:12 17:12 19:49 Temp 98.2 98.2 98.2 98.2 Pulse 64 64 Resp 13 18 B/P 106/62 95/53 Pulse Ox 94 97 O2 Delivery Room Air Room Air Room Air Room Air 08/25/16 08/25/16 08/25/16 08/26/16 20:05 23:00 23:20 03:30 Temp 98.0 98.0 98.4 98.0 98.0 98.4 Pulse 60 74 Resp 16 16 B/P 103/59 103/ 108/66 Pulse Ox 93 93 O2 Delivery Room Air Room Air Room Air Intake and Output 08/25/16 08/25/16 08/26/16 15:00 23:00 07:00 Intake Total 240 ml 189 ml Output Total 300 ml 50 ml Balance -60 ml 139 ml MADDIE AMBROSE MD Aug 26, 2016 09:48
--- NOTE | 2016-08-26 09:52 | PDOC ---
PROGRESS NOTES Subjective Subjective seen in dialysis unit,feeling better Objective Objective Vital Signs Date Time Temp Pulse Resp B/P Pulse Ox O2 Delivery O2 Flow Rate FiO2 08/26/16 03:30 98.4 74 16 108/66 93 Room Air 98.4 Intake and Output 08/26/16 07:00 Intake Total 429 ml Output Total 350 ml Balance 79 ml Intake Oral 350 ml Other 79 ml Output Urine Total 350 ml # Bowel Movements 1 Physical Exam Abdomen: Normal bowel sounds, Soft Heart: Regular rate, Normal S1, Normal S2, Other (1-2/6 systolic murmur) Extremities: Other (bilateral 2+ edema in lower extremities) General: Alert, Oriented X3, Cooperative, No acute distress HEENT: EOMI Lungs: Clear to auscultation MUSCULOSKELETAL: No joint tenderness, No deformity, No muscular tenderness noted Neck: Supple, Other (Right port is placed) Neuro: Normal speech Psych/Mental Status: Mood NL Skin: No rashes, No significant lesion COMMENT cervantes present Diagnosis Problem List Problems Medical Problems: (1) Acute on chronic renal failure Status: Acute Assessment Assessment * urinary retention. ac on crf. possible ATN started on dialysis 1. ARF with CKD II ATN SONA ,cr 2.9 no change from yesterday 2. a/c systolic CHF ICM EF 10% AICD 3. HTN 4. DM II with CKD II diet control 5. hyperlipidemia 6. mild to mod MR 7. moderate pulmonary HTN 8. severe weakness and debility 9. metabolic encephalopathy POA 10. moderate chronic PCL malnutrition PLAN: [facility] dialysis today 2nd day of dialysis. temp dialysis catheter placed wednesday. spoke with renal, plans to place temp dialysis catheter today and start dialysis . DNR ordered signed, as requested by the pt. spoke with vp digital marketing social media and crm spoke with pt+daughter. want DNR , proceed with dialysis. want to take to [place] to stay with daughter. ? hospice down the road. vascular consult, dec circulation to feet both side worse on rt side cervantes placed for bladder retention. pt may need dialysis, cr 3.0 Home with home health or SNU next week spoke with renal+rehab today today. Vantin for UTI,E Coli olive cath placement . d/c iv fluids ,no improvement CHF on dobutamine cardiology consult appreciated d/c enestro poor prison prognosis. do not want anything done for leg circulation at this time dec pulses on feet ,arterial doppler Problems: Plan Plan of Care Problems Medical Problems: (1) Acute on chronic renal failure Status: Acute Comment Review of Relevant I have reviewed the following items marquise (where applicable) has been applied. Labs Laboratory Tests Test 08/25/16 12:48 08/25/16 17:16 08/25/16 20:36 08/26/16 04:50 Glucose (Fingerstick) 111mg/dL (70-99) 114mg/dL (70-99) 114mg/dL (70-99) Prothrombin Time 22.1SEC (11.7-14.0) Prothromb Time International Ratio 2.1 (0.8-1.1) Sodium Level 136mmol/L (136-145) Potassium Level 3.8mmol/L (3.5-5.1) Chloride Level 101mmol/L (98-107) Carbon Dioxide Level 26mmol/L (21-32) Anion Gap 9 (6-14) Blood Urea Nitrogen 65mg/dL (8-26) Creatinine 2.2mg/dL (0.7-1.3) Estimated GFR (Cockcroft-Gault) 35.7 Glucose Level 104mg/dL (70-99) Calcium Level 8.1mg/dL (8.5-10.1) Microbiology 08/15/16 Urine Culture - Final, Complete 08/15/16 Urine Culture Result 1 (JV) - Final, Complete 08/15/16 Urine Culture Result 2 (JV) - Final, Complete 08/15/16 Antimicrobic Susceptibility - Final, Complete Medications Current Medications Info (PHARMACY MONITORING -- do not chart) 1 each PRN DAILY PRN MC SEE COMMENTS ; Start 08/25/16 at 12:45 Info (PHARMACY MONITORING -- do not chart) 1 each PRN DAILY PRN MC SEE COMMENTS ; Start 08/25/16 at 12:45 Info (PHARMACY MONITORING -- do not chart) 1 each PRN DAILY PRN MC SEE COMMENTS ; Start 08/26/16 at 06:45 Tramadol HCl (Ultram) 50 mg PRN TID PRN PO PAIN Last administered on 08/25/16 16:12; Start 08/25/16 at 15:45 Warfarin Sodium (Coumadin) 4 mg 1X WARF ONCE PO Last administered on 16:11; Start 08/25/16 at 16:00; Stop 08/25/16 at 16:01; Status DC Vitals/I & O Vital Sign - Last 24 Hours 08/25/16 08/25/16 08/25/16 08/25/16 12:53 12:54 13:16 15:51 Temp 97.8 97.8 97.8 97.8 Pulse 65 61 61 Resp 14 14 B/P 100/61 100/61 100/61 Pulse Ox 92 92 O2 Delivery Room Air Room Air 08/25/16 08/25/16 08/25/16 08/25/16 15:52 16:12 17:12 19:49 Temp 98.2 98.2 98.2 98.2 Pulse 64 64 Resp 13 18 B/P 106/62 95/53 Pulse Ox 94 97 O2 Delivery Room Air Room Air Room Air Room Air 08/25/16 08/25/16 08/25/16 08/26/16 20:05 23:00 23:20 03:30 Temp 98.0 98.0 98.4 98.0 98.0 98.4 Pulse 60 74 Resp 16 16 B/P 103/59 103/ 108/66 Pulse Ox 93 93 O2 Delivery Room Air Room Air Room Air Intake and Output 08/25/16 08/25/16 08/26/16 15:00 23:00 07:00 Intake Total 240 ml 189 ml Output Total 300 ml 50 ml Balance -60 ml 139 ml AFSHAN SLADE MD Aug 26, 2016 09:52
[2016-08-26] MEDS: CARVEDILOL 6.25 MG TABLET. PO SCH ×2 (10:45→17:12)
[2016-08-26] MEDS: ASPIRIN ENTERIC COATED 81 MG TABLET.DR. PO SCH (10:45)
[2016-08-26] MEDS: CEFPODOXIME PROXETIL 100 MG TABLET. PO SCH ×2 (10:45→20:40)
[2016-08-26] MEDS: AMIODARONE HCL 200 MG TABLET. PO SCH (10:45)
[2016-08-26] MEDS: PANTOPRAZOLE 40 MG TABLET.DR. PO SCH (10:45)
[2016-08-26] MEDS: TRAMADOL 50 MG TABLET. PO PRN ×2 (11:10→21:00)
[2016-08-26] MEDS: IRON SUCROSE COMPLEX 200 MG in IV NORMAL SALINE 100ML 100 ML IV SCH (11:11)
--- NOTE | 2016-08-26 11:32 | PDOC ---
Renal-Progress Notes Subjective Notes Notes FEELS WELL History of Present Illness Hx of present illness BETTER Vitals Vitals Vital Signs Date Time Temp Pulse Resp B/P Pulse Ox O2 Delivery O2 Flow Rate FiO2 08/26/16 11:10 93 Room Air 2.0 08/26/16 10:45 74 108/66 08/26/16 03:30 98.4 16 98.4 Weight Weight [ ] I.O. Intake and Output Intake and Output 08/26/16 07:00 Intake Total 429 ml Output Total 350 ml Balance 79 ml Intake Oral 350 ml Other 79 ml Output Urine Total 350 ml # Bowel Movements 1 Labs Labs Laboratory Tests Test 08/25/16 12:48 08/25/16 17:16 08/25/16 20:36 08/26/16 04:50 Glucose (Fingerstick) 111mg/dL (70-99) 114mg/dL (70-99) 114mg/dL (70-99) Prothrombin Time 22.1SEC (11.7-14.0) Prothromb Time International Ratio 2.1 (0.8-1.1) Sodium Level 136mmol/L (136-145) Potassium Level 3.8mmol/L (3.5-5.1) Chloride Level 101mmol/L (98-107) Carbon Dioxide Level 26mmol/L (21-32) Anion Gap 9 (6-14) Blood Urea Nitrogen 65mg/dL (8-26) Creatinine 2.2mg/dL (0.7-1.3) Estimated GFR (Cockcroft-Gault) 35.7 Glucose Level 104mg/dL (70-99) Calcium Level 8.1mg/dL (8.5-10.1) Micro Micro Microbiology 08/15/16 Urine Culture - Final, Complete 08/15/16 Urine Culture Result 1 (JV) - Final, Complete 08/15/16 Urine Culture Result 2 (JV) - Final, Complete 08/15/16 Antimicrobic Susceptibility - Final, Complete Review of Systems Constitutional: yes: alert, oriented, weakness Ears/Nose/Throat: Yes: no symptom reported Eyes: Yes: no symptom reported Pulmonary: Yes no symptom reported Gastrointestional: Yes: no symptom reported Genitourinary: Yes: retention Musculoskeletal: Yes: no symptom reported Skin: Yes no symptom reported Physical Exam General Appearance: no apparent distress Skin: warm Respiratory: bilateral CTA Heart: S1S2, no thrills Abdomen: GT edema Extremities: pulses present, no edema Neurology: alert Assessment Assessment IMP ESRD ANEMIA URINARY RETENTION HYPOTONIC BLADDER S/P TUNNELED HD CATHETER SEVERE CM PLAN CONT RASHI HD TODAY AT 3.0 HRS QB OF 350 MINIMUM UF MAINTAIN VALDEZ HAVE D/W CM TO SET UP OP HD IN [place] ROSSANA GAINES MD Aug 26, 2016 11:32
[2016-08-26 11:57] VITALS: BP 100/58
--- NOTE | 2016-08-26 12:39 | PDOC ---
PROGRESS NOTES Subjective Subjective Pt is sitting up in her chair eating lunch with daughter at bedside. Pt is reports she is feeling better. Pt had dialysis today and will go again tomorrow. Pt reports having a bowel movement and does not feel "bloated" anymore. Pt denies CP and SOB Objective Objective Vital Signs Date Time Temp Pulse Resp B/P Pulse Ox O2 Delivery O2 Flow Rate FiO2 08/26/16 11:57 97.3 65 16 100/58 90 Room Air 97.3 08/26/16 11:10 2.0 Intake and Output 08/26/16 07:00 Intake Total 429 ml Output Total 350 ml Balance 79 ml Intake Oral 350 ml Other 79 ml Output Urine Total 350 ml # Bowel Movements 1 Physical Exam Abdomen: Normal bowel sounds, Soft, No tenderness Heart: Regular rate, Normal S1, Normal S2, Other (1-2/6 systolic murmur) Extremities: Other (+2 edema bilateral extremities) General: Alert, Oriented X3, Cooperative, No acute distress HEENT: Atraumatic, PERRLA Lungs: Clear to auscultation, Normal air movement Assessment Assessment Problems Medical Problems: (1) Acute on chronic renal failure Status: Acute - Acute on chronic systolic CHF ICM EF 10% AICD - New onset of constipation. Now BM since 08/15/16 - ARF with CKD II, ATN, SONA - HTN - Severe weakness and debility - moderate pulmonary HTN - mild to mod MR - HLD - DM II Plan Plan of Care - Constipation- now resolved. prn mineral oil if needed - Continue pt's dobutamine drip until patient is discharged. Once she is discharged she will need to have an infusion 3 days after and then every 3 days - Talked to social media assistant today. She is working on setting up dialysis and dobutamine infusions in [place] where the pt and daughter want to go. - Ok to d/c billy. Continue to monitor her output. - Pt had dialysis today and had 0.5 kilos off; will have dialysis again tomorrow - Ok with discharge when primary team and everyone else agrees as long as she has the dobutamine infusions set up. - Continue to monitor her Thank you for your consultation! Comment Review of Relevant I have reviewed the following items marquise (where applicable) has been applied. Labs Laboratory Tests Test 08/24/16 13:38 08/24/16 17:12 08/24/16 20:58 08/25/16 04:55 Glucose (Fingerstick) 123mg/dL (70-99) 103mg/dL (70-99) 110mg/dL (70-99) White Blood Count 5.2x10^3/uL (4.0-11.0) Red Blood Count 3.73x10^6/uL (4.30-5.70) Hemoglobin 9.4g/dL (13.0-17.5) Hematocrit 29.6% (39.0-53.0) Mean Corpuscular Volume 79fL (79-100) Mean Corpuscular Hemoglobin 25pg (25-35) Mean Corpuscular Hemoglobin Concent 32g/dL (31-37) Red Cell Distribution Width 20.2% (11.5-14.5) Platelet Count 126x10^3/uL (140-400) Prothrombin Time 22.5SEC (11.7-14.0) Prothromb Time International Ratio 2.1 (0.8-1.1) Sodium Level 135mmol/L (136-145) Potassium Level 3.7mmol/L (3.5-5.1) Chloride Level 101mmol/L (98-107) Carbon Dioxide Level 21mmol/L (21-32) Anion Gap 13 (6-14) Blood Urea Nitrogen 103mg/dL (8-26) Creatinine 2.8mg/dL (0.7-1.3) Estimated GFR (Cockcroft-Gault) 27.0 Glucose Level 126mg/dL (70-99) Calcium Level 7.8mg/dL (8.5-10.1) Total Bilirubin 0.5mg/dL (0.2-1.0) Direct Bilirubin 0.3mg/dL (0.0-0.2) Aspartate Amino Transf (AST/SGOT) 17U/L (15-37) Alanine Aminotransferase (ALT/SGPT) 19U/L (16-63) Alkaline Phosphatase 75U/L (46-116) Total Protein 5.6g/dL (6.4-8.2) Albumin 2.7g/dL (3.4-5.0) Test 08/25/16 08:10 08/25/16 12:48 08/25/16 17:16 08/25/16 20:36 Glucose (Fingerstick) 107mg/dL (70-99) 111mg/dL (70-99) 114mg/dL (70-99) 114mg/dL (70-99) Test 08/26/16 04:50 Prothrombin Time 22.1SEC (11.7-14.0) Prothromb Time International Ratio 2.1 (0.8-1.1) Sodium Level 136mmol/L (136-145) Potassium Level 3.8mmol/L (3.5-5.1) Chloride Level 101mmol/L (98-107) Carbon Dioxide Level 26mmol/L (21-32) Anion Gap 9 (6-14) Blood Urea Nitrogen 65mg/dL (8-26) Creatinine 2.2mg/dL (0.7-1.3) Estimated GFR (Cockcroft-Gault) 35.7 Glucose Level 104mg/dL (70-99) Calcium Level 8.1mg/dL (8.5-10.1) Laboratory Tests Test 08/25/16 12:48 08/25/16 17:16 08/25/16 20:36 08/26/16 04:50 Glucose (Fingerstick) 111mg/dL (70-99) 114mg/dL (70-99) 114mg/dL (70-99) Prothrombin Time 22.1SEC (11.7-14.0) Prothromb Time International Ratio 2.1 (0.8-1.1) Sodium Level 136mmol/L (136-145) Potassium Level 3.8mmol/L (3.5-5.1) Chloride Level 101mmol/L (98-107) Carbon Dioxide Level 26mmol/L (21-32) Anion Gap 9 (6-14) Blood Urea Nitrogen 65mg/dL (8-26) Creatinine 2.2mg/dL (0.7-1.3) Estimated GFR (Cockcroft-Gault) 35.7 Glucose Level 104mg/dL (70-99) Calcium Level 8.1mg/dL (8.5-10.1) Microbiology 08/15/16 Urine Culture - Final, Complete 08/15/16 Urine Culture Result 1 (JV) - Final, Complete 08/15/16 Urine Culture Result 2 (JV) - Final, Complete 08/15/16 Antimicrobic Susceptibility - Final, Complete Medications Current Medications Insulin Aspart (Novolog) 0-5 UNITS TIDWMEALS SQ ; Start 08/14/16 at 17:30 Dextrose 12.5 gm 12.5 gm PRN Q15MIN PRN IV SEE COMMENTS; Start 08/14/16 at 16: 45 Sodium Chloride (Iv Sodium Chloride 0.9% 1000ml Bag) 1,000 ml @ 100 mls/hr Q10H IV Last administered on 08/14/16 18:53; Start 08/14/16 at 17:30; Stop 08/15/16 at 03:29; Status DC Amiodarone HCl (Cordarone) 200 mg DAILY PO Last administered on 08/26/16 10:45 ; Start 08/15/16 at 09:00 Aspirin (Ecotrin) 81 mg DAILY PO Last administered on 08/26/16 10:45; Start at 09:00 Atorvastatin Calcium (Lipitor) 40 mg QHS PO Last administered on 08/25/16 21: 19; Start 08/14/16 at 21:00 Carvedilol (Coreg) 6.25 mg BIDWMEALS PO Last administered on 08/26/16 10:45; Start 08/14/16 at 17:30 Colestipol HCl (Colestid) 1 gm TID PO Last administered on 08/17/16 20:55; Start 08/14/16 at 21:00; Stop 08/18/16 at 10:08; Status DC Metoclopramide HCl (Reglan) 5 mg PRN BID PRN PO NAUSEA; Start 08/14/16 at 16:45 ; Stop 08/16/16 at 10:25; Status DC Sacubitril/ Valsartan (Entresto 24 Mg-26 Mg) 1 tab BID PO Last administered on 08/17/16 09:14; Start 08/14/16 at 21:00; Stop 08/17/16 at 10:16; Status DC Warfarin Sodium (Coumadin) 2.5 mg DAILY16 PO Last administered on 08/14/16 18: 50; Start 08/14/16 at 18:00; Stop 08/15/16 at 14:13; Status DC Warfarin Sodium (Coumadin Per Physician) 1 each PRN DAILY PRN MC SEE COMMENTS; Start 08/14/16 at 17:15; Stop 08/15/16 at 09:54; Status DC Sodium Polystyrene Sulfonate (Kayexalate) 60 gm 1X ONCE PO Last administered on 08/14/16 18:51; Start 08/14/16 at 18:30; Stop 08/14/16 at 18:31; Status DC Warfarin Sodium (Coumadin Per Pharmacy) 1 each PRN DAILY PRN MC SEE COMMENTS Last administered on 08/25/16 14:49; Start 08/15/16 at 10:00 Pantoprazole Sodium 40 mg 40 mg DAILYAC PO Last administered on 08/26/16 10:45 ; Start 08/15/16 at 11:30 Dobutamine HCl/ Dextrose 250 ml @ 0 mls/hr CONT PRN IV ; Start 08/15/16 at 14:00 ; Stop 08/15/16 at 14:53; Status DC Albumin Human (Albuminar) 100 ml @ 100 mls/hr 1X ONCE IV Last administered on 08/15/16 15:25; Start 08/15/16 at 14:00; Stop 08/15/16 at 14:59; Status DC Furosemide 40 mg 40 mg 1X ONCE IVP Last administered on 08/15/16 16:22; Start 08/15/16 at 15:00; Stop 08/15/16 at 15:01; Status DC Albumin Human (Albuminar) 100 ml @ 100 mls/hr 1X ONCE IV Last administered on 08/16/16 08:41; Start 08/16/16 at 09:00; Stop 08/16/16 at 09:59; Status DC Furosemide (Lasix) 40 mg 1X ONCE IVP Last administered on 08/16/16 09:45; Start 08/16/16 at 10:00; Stop 08/16/16 at 10:01; Status DC Warfarin Sodium 4 mg 4 mg 1X WARF ONCE PO Last administered on 08/15/16 16:33 ; Start 08/15/16 at 16:00; Stop 08/15/16 at 16:01; Status DC Dobutamine HCl/ Dextrose 250 ml @ 0 mls/hr CONT PRN PRN IV SEE I/O RECORD Last administered on 08/25/16 12:58; Start 08/15/16 at 14:53 Sodium Bicarbonate 50 meq 50 meq Q2HR IV Last administered on 08/15/16 18:20; Start 08/15/16 at 16:00; Stop 08/15/16 at 18:30; Status DC Magnesium Sulfate/ Dextrose (Magnesium Sulfate PREMIX 2GM) 50 ml @ 25 mls/hr PRN DAILY PRN IV for Mag < 1.7 on am labs; Start 08/15/16 at 15:30 Warfarin Sodium (Coumadin) 4 mg 1X WARF ONCE PO Last administered on 08/16/16 17:28; Start 08/16/16 at 16:00; Stop 08/16/16 at 16:01; Status DC Ondansetron HCl 4 mg 4 mg PRN Q6HRS PRN IV nausea Last administered on 18:09; Start 08/16/16 at 20:30 Ceftriaxone Sodium 1 gm/ Sodium Chloride 50 ml @ 100 mls/hr Q24H IV Last administered on 08/19/16 10:00; Start 08/17/16 at 10:00; Stop 08/19/16 at 12:56; Status DC Sodium Chloride (Iv Sodium Chloride 0.9% 1000ml Bag) 1,000 ml @ 75 mls/hr [id number] IV Last administered on 08/19/16 16:58; Start 08/17/16 at 10:15; Stop at 09:27; Status DC Warfarin Sodium (Coumadin) 5 mg 1X WARF ONCE PO ; Start 08/17/16 at 16:00; Stop 08/17/16 at 16:01; Status DC Heparin Sodium/ Sodium Chloride 1,000 unit 1X ONCE IART Last administered on 11:45; Start 08/18/16 at 11:30; Stop 08/18/16 at 11:31; Status DC Midazolam HCl (Versed) 2 mg 1X ONCE IV Last administered on 08/18/16 11:46; Start 08/18/16 at 11:30; Stop 08/18/16 at 11:31; Status DC Fentanyl Citrate (Fentanyl 2ml Vial) 100 mcg 1X ONCE IV Last administered on 11:47; Start 08/18/16 at 11:30; Stop 08/18/16 at 11:31; Status DC Lidocaine/ Epinephrine 15 ml 15 ml 1X ONCE IJ Last administered on 08/18/16 11 :44; Start 08/18/16 at 11:30; Stop 08/18/16 at 11:31; Status DC Vancomycin HCl 250 ml @ 250 mls/hr 1X ONCE IRR Last administered on 08/18/16 11:45; Start 08/18/16 at 11:30; Stop 08/18/16 at 12:29; Status DC Heparin Sodium (Porcine) (Hep Lock Adult) 500 unit 1X ONCE IV Last administered on 08/18/16 11:46; Start 08/18/16 at 11:30; Stop 08/18/16 at 11:31; Status DC Heparin Sodium (Porcine) (Hep Lock Adult) 500 unit STK-MED ONCE IV ; Start at 09:29; Stop 08/18/16 at 11:42; Status DC Lidocaine/ Epinephrine 20 ml 20 ml STK-MED ONCE .ROUTE ; Start 08/18/16 at 09:29 ; Stop 08/18/16 at 11:42; Status DC Heparin Sodium/ Sodium Chloride 500 ml @ As Directed STK-MED ONCE .ROUTE ; Start 08/18/16 at 09:29; Stop 08/18/16 at 11:42; Status DC Vancomycin HCl 250 ml @ As Directed STK-MED ONCE .ROUTE ; Start 08/18/16 at 09: 29; Stop 08/18/16 at 11:42; Status DC Fentanyl Citrate (Fentanyl 2ml Vial) 100 mcg STK-MED ONCE .ROUTE ; Start at 10:29; Stop 08/18/16 at 11:43; Status DC Midazolam HCl 2 mg 2 mg STK-MED ONCE .ROUTE ; Start 08/18/16 at 10:30; Stop at 11:43; Status DC Iron Sucrose/ Sodium Chloride (Venofer/Iv Sodium Chloride 0.9% 100ml) 110 ml @ 55 mls/hr 3X/WEEK IV Last administered on 08/26/16 11:11; Start 08/19/16 at 09: 00; Stop 08/28/16 at 10:59 Warfarin Sodium (Coumadin) 5 mg 1X WARF ONCE PO Last administered on 08/18/16 17:56; Start 08/18/16 at 16:00; Stop 08/18/16 at 16:01; Status DC Warfarin Sodium (Coumadin) 3 mg 1X WARF ONCE PO ; Start 08/19/16 at 16:00; Stop 08/19/16 at 16:01; Status Cancel Cefpodoxime Proxetil (Vantin) 100 mg BID PO Last administered on 08/26/16 10: 45; Start 08/19/16 at 21:00; Stop 08/26/16 at 21:01 Warfarin Sodium (Coumadin) 2.5 mg 1X WARF ONCE PO Last administered on 16:59; Start 08/19/16 at 16:00; Stop 08/19/16 at 16:01; Status DC Senna/Docusate Sodium 1 tab 1 tab PRN BID PRN PO CONSTIPATION Last administered on 08/20/16 14:18; Start 08/19/16 at 13:30; Stop 08/20/16 at 14:43; Status DC Sodium Chloride 250 ml @ 0 mls/hr 1X ONCE IV Last administered on 08/19/16 14: 33; Start 08/19/16 at 13:45; Stop 08/19/16 at 13:53; Status DC Sodium Chloride (Iv Sodium Chloride 0.9% 500ml Bag) 500 ml @ 0 mls/hr 1X ONCE IV Last administered on 08/19/16 16:58; Start 08/19/16 at 16:00; Stop 08/19/16 at 16:01; Status DC Senna/Docusate Sodium (Senna Plus) 1 tab PRN BID PRN PO CONSTIPATION Last administered on 08/23/16 11:01; Start 08/20/16 at 10:00 Bisacodyl (Dulcolax Supp) 10 mg 1X ONCE [place] ; Start 08/20/16 at 11:00; Stop at 11:00; Status DC Bisacodyl (Dulcolax Supp) 10 mg 1X ONCE [place] Last administered on 08/20/16 16:49 ; Start 08/20/16 at 14:30; Stop 08/20/16 at 14:31; Status DC Warfarin Sodium (Coumadin) 2 mg 1X WARF ONCE PO Last administered on 08/20/16 16:48; Start 08/20/16 at 16:00; Stop 08/20/16 at 16:01; Status DC Mineral Oil (Fleet Mineral Oil) 133 ml 1X ONCE [place] ; Start 08/21/16 at 20:00; Stop 08/21/16 at 20:00; Status DC Non-Formulary Medication 1 ea Q4H PO Last administered on 08/21/16 16:18; Start 08/21/16 at 12:00; Stop 08/21/16 at 16:01; Status DC Sodium Bicarbonate 50 meq Q6H IV Last administered on 08/21/16 20:16; Start 08/21/16 at 14:00; Stop 08/21/16 at 20:01; Status DC Warfarin Sodium (Coumadin) 3 mg 1X WARF ONCE PO Last administered on 08/21/16 16:16; Start 08/21/16 at 16:00; Stop 08/21/16 at 16:01; Status DC Warfarin Sodium (Coumadin) 2.5 mg 1X WARF ONCE PO Last administered on 16:00; Start 08/22/16 at 16:00; Stop 08/22/16 at 16:01; Status DC Warfarin Sodium (Coumadin) 3 mg 1X WARF ONCE PO Last administered on 08/23/16 18:28; Start 08/23/16 at 16:00; Stop 08/23/16 at 16:01; Status DC Lidocaine/ Epinephrine (Xylocaine 2%-Epi 1:100,000) 20 ml STK-MED ONCE .ROUTE ; Start 08/24/16 at 10:54; Stop 08/24/16 at 10:55; Status DC Heparin Sodium (Porcine) 36523 unit 10,000 unit STK-MED ONCE .ROUTE ; Start 03/02 at 10:54; Stop 08/24/16 at 10:55; Status DC Heparin Sodium/ Sodium Chloride 500 ml @ As Directed STK-MED ONCE .ROUTE ; Start 08/24/16 at 10:54; Stop 08/24/16 at 10:55; Status DC Darbepoetin Dino (Aranesp) 60 mcg WEEKLYHS SQ Last administered on 08/24/16 20 :59; Start 08/24/16 at 21:00 Fentanyl Citrate (Fentanyl 2ml Vial) 100 mcg STK-MED ONCE .ROUTE ; Start at 11:26; Stop 08/24/16 at 11:27; Status DC Midazolam HCl 2 mg 2 mg STK-MED ONCE .ROUTE ; Start 08/24/16 at 11:26; Stop 03/02 at 11:27; Status DC Cefazolin Sodium (Ancef 1gm Ivpb For Omni) 0 ml @ As Directed STK-MED ONCE IV ; Start 08/24/16 at 11:26; Stop 08/24/16 at 11:27; Status DC Heparin Sodium/ Sodium Chloride 1,000 unit 1X ONCE IART Last administered on 12:23; Start 08/24/16 at 11:45; Stop 08/24/16 at 11:46; Status DC Lidocaine/ Epinephrine (Xylocaine 2%-Epi 1:100,000) 20 ml 1X ONCE IJ Last administered on 08/24/16 12:23; Start 08/24/16 at 11:45; Stop 08/24/16 at 11:46 ; Status DC Fentanyl Citrate (Fentanyl 2ml Vial) 100 mcg STK-MED ONCE .ROUTE ; Start at 11:58; Stop 08/24/16 at 11:59; Status DC Midazolam HCl (Versed) 2 mg STK-MED ONCE .ROUTE ; Start 08/24/16 at 11:58; Stop 08/24/16 at 11:59; Status DC Heparin Sodium (Porcine) (Heparin Sodium) 4,300 unit 1X ONCE IV Last administered on 08/24/16 12:15; Start 08/24/16 at 12:15; Stop 08/24/16 at 12:21 ; Status DC Midazolam HCl (Versed) 2 mg 1X ONCE IV Last administered on 08/24/16 12:30; Start 08/24/16 at 12:30; Stop 08/24/16 at 12:31; Status DC Fentanyl Citrate 100 mcg 100 mcg 1X ONCE IV Last administered on 08/24/16 12: 30; Start 08/24/16 at 12:30; Stop 08/24/16 at 12:31; Status DC Cefazolin Sodium (Ancef 1gm Ivpb For Omni) 50 ml @ 100 mls/hr 1X ONCE IV Last administered on 08/24/16 12:29; Start 08/24/16 at 12:30; Stop 08/24/16 at 12:59; Status DC Warfarin Sodium (Coumadin) 4 mg 1X WARF ONCE PO Last administered on 18:08; Start 08/24/16 at 16:00; Stop 08/24/16 at 16:01; Status DC Mineral Oil (Fleet Mineral Oil) 133 ml PRN DAILY PRN [place] CONSTIPATION; Start 03/02 at 19:30 Info (PHARMACY MONITORING -- do not chart) 1 each PRN DAILY PRN MC SEE COMMENTS ; Start 08/25/16 at 12:45 Info (PHARMACY MONITORING -- do not chart) 1 each PRN DAILY PRN MC SEE COMMENTS ; Start 08/25/16 at 12:45 Warfarin Sodium (Coumadin) 4 mg 1X WARF ONCE PO Last administered on 16:11; Start 08/25/16 at 16:00; Stop 08/25/16 at 16:01; Status DC Tramadol HCl (Ultram) 50 mg PRN TID PRN PO PAIN Last administered on 08/26/16 11:10; Start 08/25/16 at 15:45 Info (PHARMACY MONITORING -- do not chart) 1 each PRN DAILY PRN MC SEE COMMENTS ; Start 08/26/16 at 06:45 Active Scripts Active Entresto 24 mg-26 mg Tablet (Sacubitril/Valsartan) 1 Each Tablet 1 Tab PO BID Coumadin (Warfarin Sodium) 2.5 Mg Tablet 2.5 Mg PO DAILY16 Reported Reglan (Metoclopramide Hcl) 10 Mg Tablet 5 Mg PO PRN BID PRN Atorvastatin Calcium 40 Mg Tablet 1 Tab PO DAILY Colestid (Colestipol Hcl) 1 Gm Tablet 1 Gm PO TID Pacerone (Amiodarone Hcl) 200 Mg Tablet 200 Mg PO DAILY Lasix (Furosemide) 80 Mg Tablet 1 Tab PO BID Gabapentin 100 Mg Capsule 1 Cap PO TID Aspir 81 (Aspirin) 81 Mg Tablet.dr 1 Tab PO DAILY Coreg (Carvedilol) 6.25 Mg Tablet 1 Tab PO BID K-Tab ER (Potassium Chloride) 20 Meq Tablet.er 20 Meq PO BID Vitals/I & O Vital Sign - Last 24 Hours 08/25/16 08/25/16 08/25/16 08/25/16 12:53 12:54 13:16 15:51 Temp 97.8 97.8 97.8 97.8 Pulse 65 61 61 Resp 14 14 B/P 100/61 100/61 100/61 Pulse Ox 92 92 O2 Delivery Room Air Room Air 08/25/16 08/25/16 08/25/16/11/17 15:52 16:12 17:12 19:49 Temp 98.2 98.2 98.2 98.2 Pulse 64 64 Resp 13 18 B/P 106/62 95/53 Pulse Ox 94 97 O2 Delivery Room Air Room Air Room Air Room Air 08/25/16 08/25/16 08/25/16 08/26/16 20:05 23:00 23:20 03:30 Temp 98.0 98.0 98.4 98.0 98.0 98.4 Pulse 60 74 Resp 16 16 B/P 103/59 103/ 108/66 Pulse Ox 93 93 O2 Delivery Room Air Room Air Room Air 08/26/16 08/26/16 08/26/16 08/26/16 08:00 10:45 10:45 11:10 Pulse 74 74 B/P 108/66 108/66 Pulse Ox 93 O2 Delivery Room Air Room Air O2 Flow Rate 2.0 08/26/16 11:57 Temp 97.3 97.3 Pulse 65 Resp 16 B/P 100/58 Pulse Ox 90 O2 Delivery Room Air Intake and Output 08/25/16 08/25/16 08/26/16 15:00 23:00 07:00 Intake Total 240 ml 189 ml Output Total 300 ml 50 ml Balance -60 ml 139 ml HEATHER CHERRY MD Aug 26, 2016 12:39
[2016-08-26 15:00] VITALS: BP 120/63
[2016-08-26] MEDS ORDERED: WARFARIN 4 MG TABLET. PO ONE (16:00)
[2016-08-26 17:21] LABS: HEP B SURFACE ABDY Non Reactive (.)
[2016-08-26 19:00] VITALS: BP 102/61
[2016-08-26] MEDS: ATORVASTATIN CALCIUM 40 MG TABLET. PO SCH (20:40)
[2016-08-26 22:12] VITALS: BP 100/54
[2016-08-27] VITALS (7 sets, daily range): BP systolic 97–110; BP diastolic 60–64
[2016-08-27] MEDS: ONDANSETRON PF 4 MG/2 ML VIAL. IV PRN (00:53)
[2016-08-27 05:27] LABS: CALCIUM 8.3 mg/dL (8.5-10.1); CREATININE 1.9 mg/dL (0.7-1.3); GFR 42.3; POTASSIUM 3.9 mmol/L (3.5-5.1)
[2016-08-27] MEDS: INSULIN ASPART 300 UNITS/3 ML INSULN.PEN SQ SCH ×3 (08:00→17:00)
[2016-08-27] MEDS ORDERED: DIALYSIS PATIENT. MC PRN ×2 (08:00)
--- NOTE | 2016-08-27 10:23 | PDOC ---
PROGRESS NOTES Subjective Subjective No new complaints. Objective Objective Vital Signs Date Time Temp Pulse Resp B/P Pulse Ox O2 Delivery O2 Flow Rate FiO2 08/27/16 03:00 97.9 65 16 109/64 99 Room Air 97.9 08/26/16 12:59 2.0 Intake and Output 08/27/16 06:59 Intake Total 729 ml Output Total 150 ml Balance 579 ml Intake Oral 540 ml IV Total 110 ml Other 79 ml Output Urine Total 150 ml Physical Exam Physical Exam She is supine on dialysis bed and had PRAFO boot in place to both feet.She is alert and comfortable. Assessment Assessment Problems Medical Problems: (1) Acute on chronic renal failure Status: Acute Plan Plan of Care To transfer to [facility] [place] when she can be transported by family. Comment Review of Relevant I have reviewed the following items marquise (where applicable) has been applied. Labs Laboratory Tests Test 08/25/16 12:48 08/25/16 17:16 08/25/16 20:36 08/26/16 04:50 Glucose (Fingerstick) 111mg/dL (70-99) 114mg/dL (70-99) 114mg/dL (70-99) Prothrombin Time 22.1SEC (11.7-14.0) Prothromb Time International Ratio 2.1 (0.8-1.1) Sodium Level 136mmol/L (136-145) Potassium Level 3.8mmol/L (3.5-5.1) Chloride Level 101mmol/L (98-107) Carbon Dioxide Level 26mmol/L (21-32) Anion Gap 9 (6-14) Blood Urea Nitrogen 65mg/dL (8-26) Creatinine 2.2mg/dL (0.7-1.3) Estimated GFR (Cockcroft-Gault) 35.7 Glucose Level 104mg/dL (70-99) Calcium Level 8.1mg/dL (8.5-10.1) Hepatitis B Surface Antigen Negative (Negative) Hepatitis B Surface Antibody Non reactive (.) Test 08/26/16 12:32 08/26/16 16:43 08/26/16 21:13 08/27/16 03:33 Glucose (Fingerstick) 100mg/dL (70-99) 98mg/dL (70-99) 95mg/dL (70-99) 98mg/dL (70-99) Test 08/27/16 05:00 Sodium Level 136mmol/L (136-145) Potassium Level 3.9mmol/L (3.5-5.1) Chloride Level 100mmol/L (98-107) Carbon Dioxide Level 27mmol/L (21-32) Anion Gap 9 (6-14) Blood Urea Nitrogen 37mg/dL (8-26) Creatinine 1.9mg/dL (0.7-1.3) Estimated GFR (Cockcroft-Gault) 42.3 Glucose Level 98mg/dL (70-99) Calcium Level 8.3mg/dL (8.5-10.1) Laboratory Tests Test 08/26/16 12:32 08/26/16 16:43 08/26/16 21:13 08/27/16 03:33 Glucose (Fingerstick) 100mg/dL (70-99) 98mg/dL (70-99) 95mg/dL (70-99) 98mg/dL (70-99) Test 08/27/16 05:00 Sodium Level 136mmol/L (136-145) Potassium Level 3.9mmol/L (3.5-5.1) Chloride Level 100mmol/L (98-107) Carbon Dioxide Level 27mmol/L (21-32) Anion Gap 9 (6-14) Blood Urea Nitrogen 37mg/dL (8-26) Creatinine 1.9mg/dL (0.7-1.3) Estimated GFR (Cockcroft-Gault) 42.3 Glucose Level 98mg/dL (70-99) Calcium Level 8.3mg/dL (8.5-10.1) Microbiology 08/15/16 Urine Culture - Final, Complete 08/15/16 Urine Culture Result 1 (JV) - Final, Complete 08/15/16 Urine Culture Result 2 (JV) - Final, Complete 08/15/16 Antimicrobic Susceptibility - Final, Complete Medications Current Medications Insulin Aspart (Novolog) 0-5 UNITS TIDWMEALS SQ ; Start 08/14/16 at 17:30 Dextrose 12.5 gm 12.5 gm PRN Q15MIN PRN IV SEE COMMENTS; Start 08/14/16 at 16: 45 Sodium Chloride (Iv Sodium Chloride 0.9% 1000ml Bag) 1,000 ml @ 100 mls/hr Q10H IV Last administered on 08/14/16 18:53; Start 08/14/16 at 17:30; Stop 08/15/16 at 03:29; Status DC Amiodarone HCl (Cordarone) 200 mg DAILY PO Last administered on 08/26/16 10:45 ; Start 08/15/16 at 09:00 Aspirin (Ecotrin) 81 mg DAILY PO Last administered on 08/26/16 10:45; Start at 09:00 Atorvastatin Calcium (Lipitor) 40 mg QHS PO Last administered on 08/26/16 20: 40; Start 08/14/16 at 21:00 Carvedilol (Coreg) 6.25 mg BIDWMEALS PO Last administered on 08/26/16 17:12; Start 08/14/16 at 17:30 Colestipol HCl (Colestid) 1 gm TID PO Last administered on 08/17/16 20:55; Start 08/14/16 at 21:00; Stop 08/18/16 at 10:08; Status DC Metoclopramide HCl (Reglan) 5 mg PRN BID PRN PO NAUSEA; Start 08/14/16 at 16:45 ; Stop 08/16/16 at 10:25; Status DC Sacubitril/ Valsartan (Entresto 24 Mg-26 Mg) 1 tab BID PO Last administered on 08/17/16 09:14; Start 08/14/16 at 21:00; Stop 08/17/16 at 10:16; Status DC Warfarin Sodium (Coumadin) 2.5 mg DAILY16 PO Last administered on 08/14/16 18: 50; Start 08/14/16 at 18:00; Stop 08/15/16 at 14:13; Status DC Warfarin Sodium (Coumadin Per Physician) 1 each PRN DAILY PRN MC SEE COMMENTS; Start 08/14/16 at 17:15; Stop 08/15/16 at 09:54; Status DC Sodium Polystyrene Sulfonate (Kayexalate) 60 gm 1X ONCE PO Last administered on 08/14/16 18:51; Start 08/14/16 at 18:30; Stop 08/14/16 at 18:31; Status DC Warfarin Sodium (Coumadin Per Pharmacy) 1 each PRN DAILY PRN MC SEE COMMENTS Last administered on 08/26/16 14:28; Start 08/15/16 at 10:00 Pantoprazole Sodium 40 mg 40 mg DAILYAC PO Last administered on 08/26/16 10:45 ; Start 08/15/16 at 11:30 Dobutamine HCl/ Dextrose 250 ml @ 0 mls/hr CONT PRN IV ; Start 08/15/16 at 14:00 ; Stop 08/15/16 at 14:53; Status DC Albumin Human (Albuminar) 100 ml @ 100 mls/hr 1X ONCE IV Last administered on 08/15/16 15:25; Start 08/15/16 at 14:00; Stop 08/15/16 at 14:59; Status DC Furosemide 40 mg 40 mg 1X ONCE IVP Last administered on 08/15/16 16:22; Start 08/15/16 at 15:00; Stop 08/15/16 at 15:01; Status DC Albumin Human (Albuminar) 100 ml @ 100 mls/hr 1X ONCE IV Last administered on 08/16/16 08:41; Start 08/16/16 at 09:00; Stop 08/16/16 at 09:59; Status DC Furosemide (Lasix) 40 mg 1X ONCE IVP Last administered on 08/16/16 09:45; Start 08/16/16 at 10:00; Stop 08/16/16 at 10:01; Status DC Warfarin Sodium 4 mg 4 mg 1X WARF ONCE PO Last administered on 08/15/16 16:33 ; Start 08/15/16 at 16:00; Stop 08/15/16 at 16:01; Status DC Dobutamine HCl/ Dextrose 250 ml @ 0 mls/hr CONT PRN PRN IV SEE I/O RECORD Last administered on 08/27/16 07:02; Start 08/15/16 at 14:53 Sodium Bicarbonate 50 meq 50 meq Q2HR IV Last administered on 08/15/16 18:20; Start 08/15/16 at 16:00; Stop 08/15/16 at 18:30; Status DC Magnesium Sulfate/ Dextrose (Magnesium Sulfate PREMIX 2GM) 50 ml @ 25 mls/hr PRN DAILY PRN IV for Mag < 1.7 on am labs; Start 08/15/16 at 15:30 Warfarin Sodium (Coumadin) 4 mg 1X WARF ONCE PO Last administered on 08/16/16 17:28; Start 08/16/16 at 16:00; Stop 08/16/16 at 16:01; Status DC Ondansetron HCl 4 mg 4 mg PRN Q6HRS PRN IV nausea Last administered on 00:53; Start 08/16/16 at 20:30 Ceftriaxone Sodium 1 gm/ Sodium Chloride 50 ml @ 100 mls/hr Q24H IV Last administered on 08/19/16 10:00; Start 08/17/16 at 10:00; Stop 08/19/16 at 12:56; Status DC Sodium Chloride (Iv Sodium Chloride 0.9% 1000ml Bag) 1,000 ml @ 75 mls/hr [id number] IV Last administered on 08/19/16 16:58; Start 08/17/16 at 10:15; Stop at 09:27; Status DC Warfarin Sodium (Coumadin) 5 mg 1X WARF ONCE PO ; Start 08/17/16 at 16:00; Stop 08/17/16 at 16:01; Status DC Heparin Sodium/ Sodium Chloride 1,000 unit 1X ONCE IART Last administered on 11:45; Start 08/18/16 at 11:30; Stop 08/18/16 at 11:31; Status DC Midazolam HCl (Versed) 2 mg 1X ONCE IV Last administered on 08/18/16 11:46; Start 08/18/16 at 11:30; Stop 08/18/16 at 11:31; Status DC Fentanyl Citrate (Fentanyl 2ml Vial) 100 mcg 1X ONCE IV Last administered on 11:47; Start 08/18/16 at 11:30; Stop 08/18/16 at 11:31; Status DC Lidocaine/ Epinephrine 15 ml 15 ml 1X ONCE IJ Last administered on 08/18/16 11 :44; Start 08/18/16 at 11:30; Stop 08/18/16 at 11:31; Status DC Vancomycin HCl 250 ml @ 250 mls/hr 1X ONCE IRR Last administered on 08/18/16 11:45; Start 08/18/16 at 11:30; Stop 08/18/16 at 12:29; Status DC Heparin Sodium (Porcine) (Hep Lock Adult) 500 unit 1X ONCE IV Last administered on 08/18/16 11:46; Start 08/18/16 at 11:30; Stop 08/18/16 at 11:31; Status DC Heparin Sodium (Porcine) (Hep Lock Adult) 500 unit STK-MED ONCE IV ; Start at 09:29; Stop 08/18/16 at 11:42; Status DC Lidocaine/ Epinephrine 20 ml 20 ml STK-MED ONCE .ROUTE ; Start 08/18/16 at 09:29 ; Stop 08/18/16 at 11:42; Status DC Heparin Sodium/ Sodium Chloride 500 ml @ As Directed STK-MED ONCE .ROUTE ; Start 08/18/16 at 09:29; Stop 08/18/16 at 11:42; Status DC Vancomycin HCl 250 ml @ As Directed STK-MED ONCE .ROUTE ; Start 08/18/16 at 09: 29; Stop 08/18/16 at 11:42; Status DC Fentanyl Citrate (Fentanyl 2ml Vial) 100 mcg STK-MED ONCE .ROUTE ; Start at 10:29; Stop 08/18/16 at 11:43; Status DC Midazolam HCl 2 mg 2 mg STK-MED ONCE .ROUTE ; Start 08/18/16 at 10:30; Stop at 11:43; Status DC Iron Sucrose/ Sodium Chloride (Venofer/Iv Sodium Chloride 0.9% 100ml) 110 ml @ 55 mls/hr 3X/WEEK IV Last administered on 08/26/16 11:11; Start 08/19/16 at 09: 00; Stop 08/28/16 at 10:59 Warfarin Sodium (Coumadin) 5 mg 1X WARF ONCE PO Last administered on 08/18/16 17:56; Start 08/18/16 at 16:00; Stop 08/18/16 at 16:01; Status DC Warfarin Sodium (Coumadin) 3 mg 1X WARF ONCE PO ; Start 08/19/16 at 16:00; Stop 08/19/16 at 16:01; Status Cancel Cefpodoxime Proxetil (Vantin) 100 mg BID PO Last administered on 08/26/16 20: 40; Start 08/19/16 at 21:00; Stop 08/26/16 at 21:01; Status DC Warfarin Sodium (Coumadin) 2.5 mg 1X WARF ONCE PO Last administered on 16:59; Start 08/19/16 at 16:00; Stop 08/19/16 at 16:01; Status DC Senna/Docusate Sodium 1 tab 1 tab PRN BID PRN PO CONSTIPATION Last administered on 08/20/16 14:18; Start 08/19/16 at 13:30; Stop 08/20/16 at 14:43; Status DC Sodium Chloride 250 ml @ 0 mls/hr 1X ONCE IV Last administered on 08/19/16 14: 33; Start 08/19/16 at 13:45; Stop 08/19/16 at 13:53; Status DC Sodium Chloride (Iv Sodium Chloride 0.9% 500ml Bag) 500 ml @ 0 mls/hr 1X ONCE IV Last administered on 08/19/16 16:58; Start 08/19/16 at 16:00; Stop 08/19/16 at 16:01; Status DC Senna/Docusate Sodium (Senna Plus) 1 tab PRN BID PRN PO CONSTIPATION Last administered on 08/23/16 11:01; Start 08/20/16 at 10:00 Bisacodyl (Dulcolax Supp) 10 mg 1X ONCE [place] ; Start 08/20/16 at 11:00; Stop at 11:00; Status DC Bisacodyl (Dulcolax Supp) 10 mg 1X ONCE [place] Last administered on 08/20/16 16:49 ; Start 08/20/16 at 14:30; Stop 08/20/16 at 14:31; Status DC Warfarin Sodium (Coumadin) 2 mg 1X WARF ONCE PO Last administered on 08/20/16 16:48; Start 08/20/16 at 16:00; Stop 08/20/16 at 16:01; Status DC Mineral Oil (Fleet Mineral Oil) 133 ml 1X ONCE [place] ; Start 08/21/16 at 20:00; Stop 08/21/16 at 20:00; Status DC Non-Formulary Medication 1 ea Q4H PO Last administered on 08/21/16 16:18; Start 08/21/16 at 12:00; Stop 08/21/16 at 16:01; Status DC Sodium Bicarbonate 50 meq Q6H IV Last administered on 08/21/16 20:16; Start 08/21/16 at 14:00; Stop 08/21/16 at 20:01; Status DC Warfarin Sodium (Coumadin) 3 mg 1X WARF ONCE PO Last administered on 08/21/16 16:16; Start 08/21/16 at 16:00; Stop 08/21/16 at 16:01; Status DC Warfarin Sodium (Coumadin) 2.5 mg 1X WARF ONCE PO Last administered on 16:00; Start 08/22/16 at 16:00; Stop 08/22/16 at 16:01; Status DC Warfarin Sodium (Coumadin) 3 mg 1X WARF ONCE PO Last administered on 08/23/16 18:28; Start 08/23/16 at 16:00; Stop 08/23/16 at 16:01; Status DC Lidocaine/ Epinephrine (Xylocaine 2%-Epi 1:100,000) 20 ml STK-MED ONCE .ROUTE ; Start 08/24/16 at 10:54; Stop 08/24/16 at 10:55; Status DC Heparin Sodium (Porcine) 59347 unit 10,000 unit STK-MED ONCE .ROUTE ; Start 03/02 at 10:54; Stop 08/24/16 at 10:55; Status DC Heparin Sodium/ Sodium Chloride 500 ml @ As Directed STK-MED ONCE .ROUTE ; Start 08/24/16 at 10:54; Stop 08/24/16 at 10:55; Status DC Darbepoetin Dino (Aranesp) 60 mcg WEEKLYHS SQ Last administered on 08/24/16 20 :59; Start 08/24/16 at 21:00 Fentanyl Citrate (Fentanyl 2ml Vial) 100 mcg STK-MED ONCE .ROUTE ; Start at 11:26; Stop 08/24/16 at 11:27; Status DC Midazolam HCl 2 mg 2 mg STK-MED ONCE .ROUTE ; Start 08/24/16 at 11:26; Stop 03/02 at 11:27; Status DC Cefazolin Sodium (Ancef 1gm Ivpb For Omni) 0 ml @ As Directed STK-MED ONCE IV ; Start 08/24/16 at 11:26; Stop 08/24/16 at 11:27; Status DC Heparin Sodium/ Sodium Chloride 1,000 unit 1X ONCE IART Last administered on 12:23; Start 08/24/16 at 11:45; Stop 08/24/16 at 11:46; Status DC Lidocaine/ Epinephrine (Xylocaine 2%-Epi 1:100,000) 20 ml 1X ONCE IJ Last administered on 08/24/16 12:23; Start 08/24/16 at 11:45; Stop 08/24/16 at 11:46 ; Status DC Fentanyl Citrate (Fentanyl 2ml Vial) 100 mcg STK-MED ONCE .ROUTE ; Start at 11:58; Stop 08/24/16 at 11:59; Status DC Midazolam HCl (Versed) 2 mg STK-MED ONCE .ROUTE ; Start 08/24/16 at 11:58; Stop 08/24/16 at 11:59; Status DC Heparin Sodium (Porcine) (Heparin Sodium) 4,300 unit 1X ONCE IV Last administered on 08/24/16 12:15; Start 08/24/16 at 12:15; Stop 08/24/16 at 12:21 ; Status DC Midazolam HCl (Versed) 2 mg 1X ONCE IV Last administered on 08/24/16 12:30; Start 08/24/16 at 12:30; Stop 08/24/16 at 12:31; Status DC Fentanyl Citrate 100 mcg 100 mcg 1X ONCE IV Last administered on 08/24/16 12: 30; Start 08/24/16 at 12:30; Stop 08/24/16 at 12:31; Status DC Cefazolin Sodium (Ancef 1gm Ivpb For Omni) 50 ml @ 100 mls/hr 1X ONCE IV Last administered on 08/24/16 12:29; Start 08/24/16 at 12:30; Stop 08/24/16 at 12:59; Status DC Warfarin Sodium (Coumadin) 4 mg 1X WARF ONCE PO Last administered on 18:08; Start 08/24/16 at 16:00; Stop 08/24/16 at 16:01; Status DC Mineral Oil (Fleet Mineral Oil) 133 ml PRN DAILY PRN [place] CONSTIPATION; Start 03/02 at 19:30 Info (PHARMACY MONITORING -- do not chart) 1 each PRN DAILY PRN MC SEE COMMENTS ; Start 08/25/16 at 12:45 Info (PHARMACY MONITORING -- do not chart) 1 each PRN DAILY PRN MC SEE COMMENTS ; Start 08/25/16 at 12:45 Warfarin Sodium (Coumadin) 4 mg 1X WARF ONCE PO Last administered on 16:11; Start 08/25/16 at 16:00; Stop 08/25/16 at 16:01; Status DC Tramadol HCl (Ultram) 50 mg PRN TID PRN PO PAIN Last administered on 08/26/16 21:00; Start 08/25/16 at 15:45 Info (PHARMACY MONITORING -- do not chart) 1 each PRN DAILY PRN MC SEE COMMENTS ; Start 08/26/16 at 06:45 Warfarin Sodium (Coumadin) 4 mg 1X WARF ONCE PO Last administered on 17:13; Start 08/26/16 at 16:00; Stop 08/26/16 at 16:01; Status DC Info (PHARMACY MONITORING -- do not chart) 1 each PRN DAILY PRN MC SEE COMMENTS ; Start 08/27/16 at 08:00; Status UNV Info (PHARMACY MONITORING -- do not chart) 1 each PRN DAILY PRN MC SEE COMMENTS ; Start 08/27/16 at 08:00 Active Scripts Active Entresto 24 mg-26 mg Tablet (Sacubitril/Valsartan) 1 Each Tablet 1 Tab PO BID Coumadin (Warfarin Sodium) 2.5 Mg Tablet 2.5 Mg PO DAILY16 Reported Reglan (Metoclopramide Hcl) 10 Mg Tablet 5 Mg PO PRN BID PRN Atorvastatin Calcium 40 Mg Tablet 1 Tab PO DAILY Colestid (Colestipol Hcl) 1 Gm Tablet 1 Gm PO TID Pacerone (Amiodarone Hcl) 200 Mg Tablet 200 Mg PO DAILY Lasix (Furosemide) 80 Mg Tablet 1 Tab PO BID Gabapentin 100 Mg Capsule 1 Cap PO TID Aspir 81 (Aspirin) 81 Mg Tablet.dr 1 Tab PO DAILY Coreg (Carvedilol) 6.25 Mg Tablet 1 Tab PO BID K-Tab ER (Potassium Chloride) 20 Meq Tablet.er 20 Meq PO BID Vitals/I & O Vital Sign - Last 24 Hours 08/26/16 08/26/16 08/26/16 08/26/16 10:45 10:45 11:10 11:57 Temp 97.3 97.3 Pulse 74 74 65 Resp 16 B/P 108/66 108/66 100/58 Pulse Ox 93 90 O2 Delivery Room Air Room Air O2 Flow Rate 2.0 08/26/16 08/26/16 08/26/16 08/26/16 12:59 15:00 17:12 19:00 Temp 98.2 98.9 98.2 98.9 Pulse 66 66 65 Resp 18 16 B/P 120/63 120/63 102/61 Pulse Ox 90 95 93 O2 Delivery Room Air Room Air O2 Flow Rate 2.0 08/26/16 08/26/16 08/26/16 08/26/16 19:30 21:00 22:00 22:12 Temp 97.6 97.6 Pulse 67 Resp 18 16 16 B/P 100/54 Pulse Ox 94 O2 Delivery Room Air Room Air Room Air Room Air 08/27/16 03:00 Temp 97.9 97.9 Pulse 65 Resp 16 B/P 109/64 Pulse Ox 99 O2 Delivery Room Air Intake and Output 08/26/16 08/26/16 08/27/16 14:59 22:59 06:59 Intake Total 110 ml 120 ml 499 ml Output Total 150 ml 0 ml Balance 110 ml -30 ml 499 ml MADDIE AMBROSE MD Aug 27, 2016 10:23
--- NOTE | 2016-08-27 10:24 | PDOC ---
PROGRESS NOTES Subjective Subjective seen in dialysis Objective Objective Vital Signs Date Time Temp Pulse Resp B/P Pulse Ox O2 Delivery O2 Flow Rate FiO2 08/27/16 03:00 97.9 65 16 109/64 99 Room Air 97.9 08/26/16 12:59 2.0 Intake and Output 08/27/16 07:00 Intake Total 729 ml Output Total 150 ml Balance 579 ml Intake Oral 540 ml IV Total 110 ml Other 79 ml Output Urine Total 150 ml Physical Exam Abdomen: Normal bowel sounds, Soft, No tenderness Heart: Regular rate, Normal S1, Normal S2, Other (1-2/6 systolic murmur) Extremities: Other (+2 edema bilateral extremities) General: Alert, Oriented X3, Cooperative, No acute distress HEENT: Atraumatic, PERRLA Lungs: Clear to auscultation, Normal air movement MUSCULOSKELETAL: No joint tenderness, No deformity, No muscular tenderness noted Neck: Supple, Other (Right port is placed) Neuro: Normal speech Psych/Mental Status: Mood NL Skin: No rashes, No significant lesion Diagnosis Problem List Problems Medical Problems: (1) Acute on chronic renal failure Status: Acute Assessment Assessment * urinary retention. ac on crf. possible ATN started on dialysis 1. ARF with CKD II ATN SONA ,cr 2.9 no change from yesterday 2. a/c systolic CHF ICM EF 10% AICD 3. HTN 4. DM II with CKD II diet control 5. hyperlipidemia 6. mild to mod MR 7. moderate pulmonary HTN 8. severe weakness and debility 9. metabolic encephalopathy POA 10. moderate chronic PCL malnutrition PLAN: spoke with social media director for possible d/c over weekend, try to d/c cervantes watch for bladder retention hemo dialysis today 3nd day of dialysis. temp dialysis catheter placed wednesday. spoke with renal, plans to place temp dialysis catheter today and start dialysis . DNR ordered signed, as requested by the pt. spoke with social media director spoke with pt+daughter. want DNR , proceed with dialysis. want to take to [place] to stay with daughter. ? hospice down the road. vascular consult, dec circulation to feet both side worse on rt side cervantes placed for bladder retention. pt may need dialysis, cr 3.0 Home with home health or SNU next week spoke with renal+rehab today today. Vantin for UTI,E Coli olive cath placement . d/c iv fluids ,no improvement CHF on dobutamine cardiology consult appreciated d/c enestro poor senior care prognosis. do not want anything done for leg circulation at this time dec pulses on feet ,arterial doppler Problems: Plan Plan of Care Problems Medical Problems: (1) Acute on chronic renal failure Status: Acute Comment Review of Relevant I have reviewed the following items marquise (where applicable) has been applied. Labs Laboratory Tests Test 08/26/16 12:32 08/26/16 16:43 08/26/16 21:13 08/27/16 03:33 Glucose (Fingerstick) 100mg/dL (70-99) 98mg/dL (70-99) 95mg/dL (70-99) 98mg/dL (70-99) Test 08/27/16 05:00 Sodium Level 136mmol/L (136-145) Potassium Level 3.9mmol/L (3.5-5.1) Chloride Level 100mmol/L (98-107) Carbon Dioxide Level 27mmol/L (21-32) Anion Gap 9 (6-14) Blood Urea Nitrogen 37mg/dL (8-26) Creatinine 1.9mg/dL (0.7-1.3) Estimated GFR (Cockcroft-Gault) 42.3 Glucose Level 98mg/dL (70-99) Calcium Level 8.3mg/dL (8.5-10.1) Microbiology 08/15/16 Urine Culture - Final, Complete 08/15/16 Urine Culture Result 1 (JV) - Final, Complete 08/15/16 Urine Culture Result 2 (JV) - Final, Complete 08/15/16 Antimicrobic Susceptibility - Final, Complete Medications Current Medications Info (PHARMACY MONITORING -- do not chart) 1 each PRN DAILY PRN MC SEE COMMENTS ; Start 08/27/16 at 08:00 Info (PHARMACY MONITORING -- do not chart) 1 each PRN DAILY PRN MC SEE COMMENTS ; Start 08/27/16 at 08:00; Status UNV Warfarin Sodium (Coumadin) 4 mg 1X WARF ONCE PO Last administered on t 17:13; Start 08/26/16 at 16:00; Stop 08/26/16 at 16:01; Status DC Vitals/I & O Vital Sign - Last 24 Hours 08/26/16 08/26/16 08/26/1608/26/17 10:45 10:45 11:10 11:57 Temp 97.3 97.3 Pulse 74 74 65 Resp 16 B/P 108/66 108/66 100/58 Pulse Ox 93 90 O2 Delivery Room Air Room Air O2 Flow Rate 2.0 08/26/16 08/26/16 08/26/16 08/26/16 12:59 15:00 17:12 19:00 Temp 98.2 98.9 98.2 98.9 Pulse 66 66 65 Resp 18 16 B/P 120/63 120/63 102/61 Pulse Ox 90 95 93 O2 Delivery Room Air Room Air O2 Flow Rate 2.0 08/26/16 08/26/16 08/26/16 08/26/16 19:30 21:00 22:00 22:12 Temp 97.6 97.6 Pulse 67 Resp 18 16 16 B/P 100/54 Pulse Ox 94 O2 Delivery Room Air Room Air Room Air Room Air 08/27/16 03:00 Temp 97.9 97.9 Pulse 65 Resp 16 B/P 109/64 Pulse Ox 99 O2 Delivery Room Air Intake and Output 08/26/16 08/26/16 08/27/16 15:00 23:00 07:00 Intake Total 110 ml 120 ml 499 ml Output Total 150 ml 0 ml Balance 110 ml -30 ml 499 ml AFSHAN SLADE MD Aug 27, 2016 10:24
[2016-08-27] MEDS: PANTOPRAZOLE 40 MG TABLET.DR. PO SCH (11:42)
[2016-08-27] MEDS: CARVEDILOL 6.25 MG TABLET. PO SCH ×2 (11:45→18:32)
[2016-08-27] MEDS: AMIODARONE HCL 200 MG TABLET. PO SCH (11:45)
[2016-08-27] MEDS: ASPIRIN ENTERIC COATED 81 MG TABLET.DR. PO SCH (11:46)
--- NOTE | 2016-08-27 12:31 | PDOC ---
Renal-Progress Notes Subjective Notes Notes NONE History of Present Illness Hx of present illness NO CHANGE Vitals Vitals Vital Signs Date Time Temp Pulse Resp B/P Pulse Ox O2 Delivery O2 Flow Rate FiO2 08/27/16 11:45 68 120/67 08/27/16 03:00 97.9 16 99 Room Air 97.9 08/26/16 12:59 2.0 Weight Weight [ ] I.O. Intake and Output Intake and Output 08/27/16 06:59 Intake Total 729 ml Output Total 150 ml Balance 579 ml Intake Oral 540 ml IV Total 110 ml Other 79 ml Output Urine Total 150 ml Labs Labs Laboratory Tests Test 08/26/16 12:32 08/26/16 16:43 08/26/16 21:13 08/27/16 03:33 Glucose (Fingerstick) 100mg/dL (70-99) 98mg/dL (70-99) 95mg/dL (70-99) 98mg/dL (70-99) Test 08/27/16 05:00 Sodium Level 136mmol/L (136-145) Potassium Level 3.9mmol/L (3.5-5.1) Chloride Level 100mmol/L (98-107) Carbon Dioxide Level 27mmol/L (21-32) Anion Gap 9 (6-14) Blood Urea Nitrogen 37mg/dL (8-26) Creatinine 1.9mg/dL (0.7-1.3) Estimated GFR (Cockcroft-Gault) 42.3 Glucose Level 98mg/dL (70-99) Calcium Level 8.3mg/dL (8.5-10.1) Micro Micro Microbiology 08/15/16 Urine Culture - Final, Complete 08/15/16 Urine Culture Result 1 (JV) - Final, Complete 08/15/16 Urine Culture Result 2 (JV) - Final, Complete 08/15/16 Antimicrobic Susceptibility - Final, Complete Review of Systems Constitutional: yes: alert, oriented, weakness Ears/Nose/Throat: Yes: no symptom reported Eyes: Yes: no symptom reported Pulmonary: Yes no symptom reported Gastrointestional: Yes: no symptom reported Genitourinary: Yes: retention Musculoskeletal: Yes: no symptom reported Skin: Yes no symptom reported Physical Exam General Appearance: no apparent distress Skin: warm Respiratory: bilateral CTA Heart: S1S2, no thrills Abdomen: GT edema Extremities: pulses present, no edema Neurology: alert Assessment Assessment IMP ESRD ANEMIA URINARY RETENTION HYPOTONIC BLADDER S/P TUNNELED HD CATHETER SEVERE CM PLAN CONT RASHI HD TODAY MINIMUM UF MAINTAIN VALDEZ HAVE D/W CM TO SET UP OP HD IN [place] ROSSANA GAINES MD Aug 27, 2016 12:31
--- NOTE | 2016-08-27 15:31 | PDOC ---
PROGRESS NOTES Subjective Subjective Pt is sitting up in bed with no new complaints. Reports feeling better. Denies having any more abdominal discomfort. Reports having dialysis this morning. Reports being excited and ready to move to [place] with her daughter. Objective Objective Vital Signs Date Time Temp Pulse Resp B/P Pulse Ox O2 Delivery O2 Flow Rate FiO2 08/27/16 13:30 98.0 67 18 100/62 93 Room Air 98.0 08/26/16 12:59 2.0 Intake and Output 08/27/16 06:59 Intake Total 729 ml Output Total 150 ml Balance 579 ml Intake Oral 540 ml IV Total 110 ml Other 79 ml Output Urine Total 150 ml Physical Exam Abdomen: Normal bowel sounds, Soft, No tenderness Heart: Regular rate, Normal S1, Normal S2, Other (1-2/6 systolic murmur) General: Alert, Oriented X3, Cooperative, No acute distress HEENT: Atraumatic, PERRLA Lungs: Clear to auscultation Assessment Assessment Problems Medical Problems: (1) Acute on chronic renal failure Status: Acute - Acute on chronic systolic CHF ICM EF 10% AICD - New onset of constipation. Now BM since 08/15/16 - ARF with CKD II, ATN, SONA - HTN - Severe weakness and debility - moderate pulmonary HTN - mild to mod MR - HLD - DM II Plan Plan of Care - From a cardiology standpoint, ok with discharge when primary team is ready. - Once pt is ready for discharge, dobutamine drip will need to be stop. Once she is discharged she will need to have an infusion 3 days after and then every 3 days - Pt needs to follow up with SW about infusions in [place] - Constipation- now resolved. prn mineral oil if needed - Continue to monitor her Thank you for your consultation! Comment Review of Relevant I have reviewed the following items marquise (where applicable) has been applied. Labs Laboratory Tests Test 08/25/16 17:16 08/25/16 20:36 08/26/16 04:50 08/26/16 12:32 Glucose (Fingerstick) 114mg/dL (70-99) 114mg/dL (70-99) 100mg/dL (70-99) Prothrombin Time 22.1SEC (11.7-14.0) Prothromb Time International Ratio 2.1 (0.8-1.1) Sodium Level 136mmol/L (136-145) Potassium Level 3.8mmol/L (3.5-5.1) Chloride Level 101mmol/L (98-107) Carbon Dioxide Level 26mmol/L (21-32) Anion Gap 9 (6-14) Blood Urea Nitrogen 65mg/dL (8-26) Creatinine 2.2mg/dL (0.7-1.3) Estimated GFR (Cockcroft-Gault) 35.7 Glucose Level 104mg/dL (70-99) Calcium Level 8.1mg/dL (8.5-10.1) Hepatitis B Surface Antigen Negative (Negative) Hepatitis B Surface Antibody Non reactive (.) Test 08/26/16 16:43 08/26/16 21:13 08/27/16 03:33 08/27/16 05:00 Glucose (Fingerstick) 98mg/dL (70-99) 95mg/dL (70-99) 98mg/dL (70-99) Sodium Level 136mmol/L (136-145) Potassium Level 3.9mmol/L (3.5-5.1) Chloride Level 100mmol/L (98-107) Carbon Dioxide Level 27mmol/L (21-32) Anion Gap 9 (6-14) Blood Urea Nitrogen 37mg/dL (8-26) Creatinine 1.9mg/dL (0.7-1.3) Estimated GFR (Cockcroft-Gault) 42.3 Glucose Level 98mg/dL (70-99) Calcium Level 8.3mg/dL (8.5-10.1) Laboratory Tests Test 08/26/16 16:43 08/26/16 21:13 08/27/16 03:33 08/27/16 05:00 Glucose (Fingerstick) 98mg/dL (70-99) 95mg/dL (70-99) 98mg/dL (70-99) Sodium Level 136mmol/L (136-145) Potassium Level 3.9mmol/L (3.5-5.1) Chloride Level 100mmol/L (98-107) Carbon Dioxide Level 27mmol/L (21-32) Anion Gap 9 (6-14) Blood Urea Nitrogen 37mg/dL (8-26) Creatinine 1.9mg/dL (0.7-1.3) Estimated GFR (Cockcroft-Gault) 42.3 Glucose Level 98mg/dL (70-99) Calcium Level 8.3mg/dL (8.5-10.1) Microbiology 08/15/16 Urine Culture - Final, Complete 08/15/16 Urine Culture Result 1 (JV) - Final, Complete 08/15/16 Urine Culture Result 2 (JV) - Final, Complete 08/15/16 Antimicrobic Susceptibility - Final, Complete Medications Current Medications Insulin Aspart (Novolog) 0-5 UNITS TIDWMEALS SQ ; Start 08/14/16 at 17:30 Dextrose 12.5 gm 12.5 gm PRN Q15MIN PRN IV SEE COMMENTS; Start 08/14/16 at 16: 45 Sodium Chloride (Iv Sodium Chloride 0.9% 1000ml Bag) 1,000 ml @ 100 mls/hr Q10H IV Last administered on 08/14/16 18:53; Start 08/14/16 at 17:30; Stop 08/15/16 at 03:29; Status DC Amiodarone HCl (Cordarone) 200 mg DAILY PO Last administered on 08/27/16 11:45 ; Start 08/15/16 at 09:00 Aspirin (Ecotrin) 81 mg DAILY PO Last administered on 08/27/16 11:46; Start at 09:00 Atorvastatin Calcium (Lipitor) 40 mg QHS PO Last administered on 08/26/16 20: 40; Start 08/14/16 at 21:00 Carvedilol (Coreg) 6.25 mg BIDWMEALS PO Last administered on 08/27/16 11:45; Start 08/14/16 at 17:30 Colestipol HCl (Colestid) 1 gm TID PO Last administered on 08/17/16 20:55; Start 08/14/16 at 21:00; Stop 08/18/16 at 10:08; Status DC Metoclopramide HCl (Reglan) 5 mg PRN BID PRN PO NAUSEA; Start 08/14/16 at 16:45 ; Stop 08/16/16 at 10:25; Status DC Sacubitril/ Valsartan (Entresto 24 Mg-26 Mg) 1 tab BID PO Last administered on 08/17/16 09:14; Start 08/14/16 at 21:00; Stop 08/17/16 at 10:16; Status DC Warfarin Sodium (Coumadin) 2.5 mg DAILY16 PO Last administered on 08/14/16 18: 50; Start 08/14/16 at 18:00; Stop 08/15/16 at 14:13; Status DC Warfarin Sodium (Coumadin Per Physician) 1 each PRN DAILY PRN MC SEE COMMENTS; Start 08/14/16 at 17:15; Stop 08/15/16 at 09:54; Status DC Sodium Polystyrene Sulfonate (Kayexalate) 60 gm 1X ONCE PO Last administered on 08/14/16 18:51; Start 08/14/16 at 18:30; Stop 08/14/16 at 18:31; Status DC Warfarin Sodium (Coumadin Per Pharmacy) 1 each PRN DAILY PRN MC SEE COMMENTS Last administered on 08/27/16 13:20; Start 08/15/16 at 10:00 Pantoprazole Sodium 40 mg 40 mg DAILYAC PO Last administered on 08/27/16 11:42 ; Start 08/15/16 at 11:30 Dobutamine HCl/ Dextrose 250 ml @ 0 mls/hr CONT PRN IV ; Start 08/15/16 at 14:00 ; Stop 08/15/16 at 14:53; Status DC Albumin Human (Albuminar) 100 ml @ 100 mls/hr 1X ONCE IV Last administered on 08/15/16 15:25; Start 08/15/16 at 14:00; Stop 08/15/16 at 14:59; Status DC Furosemide 40 mg 40 mg 1X ONCE IVP Last administered on 08/15/16 16:22; Start 08/15/16 at 15:00; Stop 08/15/16 at 15:01; Status DC Albumin Human (Albuminar) 100 ml @ 100 mls/hr 1X ONCE IV Last administered on 08/16/16 08:41; Start 08/16/16 at 09:00; Stop 08/16/16 at 09:59; Status DC Furosemide (Lasix) 40 mg 1X ONCE IVP Last administered on 08/16/16 09:45; Start 08/16/16 at 10:00; Stop 08/16/16 at 10:01; Status DC Warfarin Sodium 4 mg 4 mg 1X WARF ONCE PO Last administered on 08/15/16 16:33 ; Start 08/15/16 at 16:00; Stop 08/15/16 at 16:01; Status DC Dobutamine HCl/ Dextrose 250 ml @ 0 mls/hr CONT PRN PRN IV SEE I/O RECORD Last administered on 08/27/16 07:02; Start 08/15/16 at 14:53 Sodium Bicarbonate 50 meq 50 meq Q2HR IV Last administered on 08/15/16 18:20; Start 08/15/16 at 16:00; Stop 08/15/16 at 18:30; Status DC Magnesium Sulfate/ Dextrose (Magnesium Sulfate PREMIX 2GM) 50 ml @ 25 mls/hr PRN DAILY PRN IV for Mag < 1.7 on am labs; Start 08/15/16 at 15:30 Warfarin Sodium (Coumadin) 4 mg 1X WARF ONCE PO Last administered on 08/16/16 17:28; Start 08/16/16 at 16:00; Stop 08/16/16 at 16:01; Status DC Ondansetron HCl 4 mg 4 mg PRN Q6HRS PRN IV nausea Last administered on 00:53; Start 08/16/16 at 20:30 Ceftriaxone Sodium 1 gm/ Sodium Chloride 50 ml @ 100 mls/hr Q24H IV Last administered on 08/19/16 10:00; Start 08/17/16 at 10:00; Stop 08/19/16 at 12:56; Status DC Sodium Chloride (Iv Sodium Chloride 0.9% 1000ml Bag) 1,000 ml @ 75 mls/hr [id number] IV Last administered on 08/19/16 16:58; Start 08/17/16 at 10:15; Stop at 09:27; Status DC Warfarin Sodium (Coumadin) 5 mg 1X WARF ONCE PO ; Start 08/17/16 at 16:00; Stop 08/17/16 at 16:01; Status DC Heparin Sodium/ Sodium Chloride 1,000 unit 1X ONCE IART Last administered on 11:45; Start 08/18/16 at 11:30; Stop 08/18/16 at 11:31; Status DC Midazolam HCl (Versed) 2 mg 1X ONCE IV Last administered on 08/18/16 11:46; Start 08/18/16 at 11:30; Stop 08/18/16 at 11:31; Status DC Fentanyl Citrate (Fentanyl 2ml Vial) 100 mcg 1X ONCE IV Last administered on 11:47; Start 08/18/16 at 11:30; Stop 08/18/16 at 11:31; Status DC Lidocaine/ Epinephrine 15 ml 15 ml 1X ONCE IJ Last administered on 08/18/16 11 :44; Start 08/18/16 at 11:30; Stop 08/18/16 at 11:31; Status DC Vancomycin HCl 250 ml @ 250 mls/hr 1X ONCE IRR Last administered on 08/18/16 11:45; Start 08/18/16 at 11:30; Stop 08/18/16 at 12:29; Status DC Heparin Sodium (Porcine) (Hep Lock Adult) 500 unit 1X ONCE IV Last administered on 08/18/16 11:46; Start 08/18/16 at 11:30; Stop 08/18/16 at 11:31; Status DC Heparin Sodium (Porcine) (Hep Lock Adult) 500 unit STK-MED ONCE IV ; Start at 09:29; Stop 08/18/16 at 11:42; Status DC Lidocaine/ Epinephrine 20 ml 20 ml STK-MED ONCE .ROUTE ; Start 08/18/16 at 09:29 ; Stop 08/18/16 at 11:42; Status DC Heparin Sodium/ Sodium Chloride 500 ml @ As Directed STK-MED ONCE .ROUTE ; Start 08/18/16 at 09:29; Stop 08/18/16 at 11:42; Status DC Vancomycin HCl 250 ml @ As Directed STK-MED ONCE .ROUTE ; Start 08/18/16 at 09: 29; Stop 08/18/16 at 11:42; Status DC Fentanyl Citrate (Fentanyl 2ml Vial) 100 mcg STK-MED ONCE .ROUTE ; Start at 10:29; Stop 08/18/16 at 11:43; Status DC Midazolam HCl 2 mg 2 mg STK-MED ONCE .ROUTE ; Start 08/18/16 at 10:30; Stop at 11:43; Status DC Iron Sucrose/ Sodium Chloride (Venofer/Iv Sodium Chloride 0.9% 100ml) 110 ml @ 55 mls/hr 3X/WEEK IV Last administered on 08/26/16 11:11; Start 08/19/16 at 09: 00; Stop 08/28/16 at 10:59 Warfarin Sodium (Coumadin) 5 mg 1X WARF ONCE PO Last administered on 08/18/16 17:56; Start 08/18/16 at 16:00; Stop 08/18/16 at 16:01; Status DC Warfarin Sodium (Coumadin) 3 mg 1X WARF ONCE PO ; Start 08/19/16 at 16:00; Stop 08/19/16 at 16:01; Status Cancel Cefpodoxime Proxetil (Vantin) 100 mg BID PO Last administered on 08/26/16 20: 40; Start 08/19/16 at 21:00; Stop 08/26/16 at 21:01; Status DC Warfarin Sodium (Coumadin) 2.5 mg 1X WARF ONCE PO Last administered on 16:59; Start 08/19/16 at 16:00; Stop 08/19/16 at 16:01; Status DC Senna/Docusate Sodium 1 tab 1 tab PRN BID PRN PO CONSTIPATION Last administered on 08/20/16 14:18; Start 08/19/16 at 13:30; Stop 08/20/16 at 14:43; Status DC Sodium Chloride 250 ml @ 0 mls/hr 1X ONCE IV Last administered on 08/19/16 14: 33; Start 08/19/16 at 13:45; Stop 08/19/16 at 13:53; Status DC Sodium Chloride (Iv Sodium Chloride 0.9% 500ml Bag) 500 ml @ 0 mls/hr 1X ONCE IV Last administered on 08/19/16 16:58; Start 08/19/16 at 16:00; Stop 08/19/16 at 16:01; Status DC Senna/Docusate Sodium (Senna Plus) 1 tab PRN BID PRN PO CONSTIPATION Last administered on 08/23/16 11:01; Start 08/20/16 at 10:00 Bisacodyl (Dulcolax Supp) 10 mg 1X ONCE [place] ; Start 08/20/16 at 11:00; Stop at 11:00; Status DC Bisacodyl (Dulcolax Supp) 10 mg 1X ONCE [place] Last administered on 08/20/16 16:49 ; Start 08/20/16 at 14:30; Stop 08/20/16 at 14:31; Status DC Warfarin Sodium (Coumadin) 2 mg 1X WARF ONCE PO Last administered on 08/20/16 16:48; Start 08/20/16 at 16:00; Stop 08/20/16 at 16:01; Status DC Mineral Oil (Fleet Mineral Oil) 133 ml 1X ONCE [place] ; Start 08/21/16 at 20:00; Stop 08/21/16 at 20:00; Status DC Non-Formulary Medication 1 ea Q4H PO Last administered on 08/21/16 16:18; Start 08/21/16 at 12:00; Stop 08/21/16 at 16:01; Status DC Sodium Bicarbonate 50 meq Q6H IV Last administered on 08/21/16 20:16; Start 08/21/16 at 14:00; Stop 08/21/16 at 20:01; Status DC Warfarin Sodium (Coumadin) 3 mg 1X WARF ONCE PO Last administered on 08/21/16 16:16; Start 08/21/16 at 16:00; Stop 08/21/16 at 16:01; Status DC Warfarin Sodium (Coumadin) 2.5 mg 1X WARF ONCE PO Last administered on 16:00; Start 08/22/16 at 16:00; Stop 08/22/16 at 16:01; Status DC Warfarin Sodium (Coumadin) 3 mg 1X WARF ONCE PO Last administered on 08/23/16 18:28; Start 08/23/16 at 16:00; Stop 08/23/16 at 16:01; Status DC Lidocaine/ Epinephrine (Xylocaine 2%-Epi 1:100,000) 20 ml STK-MED ONCE .ROUTE ; Start 08/24/16 at 10:54; Stop 08/24/16 at 10:55; Status DC Heparin Sodium (Porcine) 38619 unit 10,000 unit STK-MED ONCE .ROUTE ; Start 03/02 at 10:54; Stop 08/24/16 at 10:55; Status DC Heparin Sodium/ Sodium Chloride 500 ml @ As Directed STK-MED ONCE .ROUTE ; Start 08/24/16 at 10:54; Stop 08/24/16 at 10:55; Status DC Darbepoetin Dino (Aranesp) 60 mcg WEEKLYHS SQ Last administered on 08/24/16 20 :59; Start 08/24/16 at 21:00 Fentanyl Citrate (Fentanyl 2ml Vial) 100 mcg STK-MED ONCE .ROUTE ; Start at 11:26; Stop 08/24/16 at 11:27; Status DC Midazolam HCl 2 mg 2 mg STK-MED ONCE .ROUTE ; Start 08/24/16 at 11:26; Stop 03/02 at 11:27; Status DC Cefazolin Sodium (Ancef 1gm Ivpb For Omni) 0 ml @ As Directed STK-MED ONCE IV ; Start 08/24/16 at 11:26; Stop 08/24/16 at 11:27; Status DC Heparin Sodium/ Sodium Chloride 1,000 unit 1X ONCE IART Last administered on 12:23; Start 08/24/16 at 11:45; Stop 08/24/16 at 11:46; Status DC Lidocaine/ Epinephrine (Xylocaine 2%-Epi 1:100,000) 20 ml 1X ONCE IJ Last administered on 08/24/16 12:23; Start 08/24/16 at 11:45; Stop 08/24/16 at 11:46 ; Status DC Fentanyl Citrate (Fentanyl 2ml Vial) 100 mcg STK-MED ONCE .ROUTE ; Start at 11:58; Stop 08/24/16 at 11:59; Status DC Midazolam HCl (Versed) 2 mg STK-MED ONCE .ROUTE ; Start 08/24/16 at 11:58; Stop 08/24/16 at 11:59; Status DC Heparin Sodium (Porcine) (Heparin Sodium) 4,300 unit 1X ONCE IV Last administered on 08/24/16 12:15; Start 08/24/16 at 12:15; Stop 08/24/16 at 12:21 ; Status DC Midazolam HCl (Versed) 2 mg 1X ONCE IV Last administered on 08/24/16 12:30; Start 08/24/16 at 12:30; Stop 08/24/16 at 12:31; Status DC Fentanyl Citrate 100 mcg 100 mcg 1X ONCE IV Last administered on 08/24/16 12: 30; Start 08/24/16 at 12:30; Stop 08/24/16 at 12:31; Status DC Cefazolin Sodium (Ancef 1gm Ivpb For Omni) 50 ml @ 100 mls/hr 1X ONCE IV Last administered on 08/24/16 12:29; Start 08/24/16 at 12:30; Stop 08/24/16 at 12:59; Status DC Warfarin Sodium (Coumadin) 4 mg 1X WARF ONCE PO Last administered on 18:08; Start 08/24/16 at 16:00; Stop 08/24/16 at 16:01; Status DC Mineral Oil (Fleet Mineral Oil) 133 ml PRN DAILY PRN [place] CONSTIPATION; Start 03/02 at 19:30 Info (PHARMACY MONITORING -- do not chart) 1 each PRN DAILY PRN MC SEE COMMENTS ; Start 08/25/16 at 12:45; Stop 08/27/16 at 13:18; Status DC Info (PHARMACY MONITORING -- do not chart) 1 each PRN DAILY PRN MC SEE COMMENTS ; Start 08/25/16 at 12:45; Stop 08/27/16 at 13:18; Status DC Warfarin Sodium (Coumadin) 4 mg 1X WARF ONCE PO Last administered on 16:11; Start 08/25/16 at 16:00; Stop 08/25/16 at 16:01; Status DC Tramadol HCl (Ultram) 50 mg PRN TID PRN PO PAIN Last administered on 08/26/16 21:00; Start 08/25/16 at 15:45 Info (PHARMACY MONITORING -- do not chart) 1 each PRN DAILY PRN MC SEE COMMENTS ; Start 08/26/16 at 06:45; Stop 08/27/16 at 13:18; Status DC Warfarin Sodium (Coumadin) 4 mg 1X WARF ONCE PO Last administered on 17:13; Start 08/26/16 at 16:00; Stop 08/26/16 at 16:01; Status DC Info (PHARMACY MONITORING -- do not chart) 1 each PRN DAILY PRN MC SEE COMMENTS ; Start 08/27/16 at 08:00; Status UNV Info (PHARMACY MONITORING -- do not chart) 1 each PRN DAILY PRN MC SEE COMMENTS ; Start 08/27/16 at 08:00 Warfarin Sodium (Coumadin) 4 mg 1X WARF ONCE PO ; Start 08/27/16 at 16:00; Stop 08/27/16 at 16:01 Active Scripts Active Entresto 24 mg-26 mg Tablet (Sacubitril/Valsartan) 1 Each Tablet 1 Tab PO BID Coumadin (Warfarin Sodium) 2.5 Mg Tablet 2.5 Mg PO DAILY16 Reported Reglan (Metoclopramide Hcl) 10 Mg Tablet 5 Mg PO PRN BID PRN Atorvastatin Calcium 40 Mg Tablet 1 Tab PO DAILY Colestid (Colestipol Hcl) 1 Gm Tablet 1 Gm PO TID Pacerone (Amiodarone Hcl) 200 Mg Tablet 200 Mg PO DAILY Lasix (Furosemide) 80 Mg Tablet 1 Tab PO BID Gabapentin 100 Mg Capsule 1 Cap PO TID Aspir 81 (Aspirin) 81 Mg Tablet.dr 1 Tab PO DAILY Coreg (Carvedilol) 6.25 Mg Tablet 1 Tab PO BID K-Tab ER (Potassium Chloride) 20 Meq Tablet.er 20 Meq PO BID Vitals/I & O Vital Sign - Last 24 Hours 08/26/16 08/26/16 08/26/16 08/26/16 17:12 19:00 19:30 21:00 Temp 98.9 98.9 Pulse 66 65 Resp 18 B/P 120/63 102/61 Pulse Ox 93 O2 Delivery Room Air Room Air Room Air 08/26/16 08/26/16 08/27/16 08/27/16 22:00 22:12 03:00 07:15 Temp 97.6 97.9 97.6 97.9 Pulse 67 65 Resp 16 16 16 B/P 100/54 109/64 110/64 Pulse Ox 94 99 O2 Delivery Room Air Room Air Room Air 08/27/16 08/27/16 08/27/16 08/27/16 11:00 11:45 11:45 13:30 Temp 98.0 98.0 98.0 98.0 Pulse 67 66 68 67 Resp 18 18 B/P 100/62 120/67 100/62 Pulse Ox 97 93 O2 Delivery Room Air Room Air Intake and Output 08/26/16 08/26/16 08/27/16 14:59 22:59 06:59 Intake Total 110 ml 120 ml 499 ml Output Total 150 ml 0 ml Balance 110 ml -30 ml 499 ml HEATHER CHERRY MD Aug 27, 2016 15:31
[2016-08-27] MEDS ORDERED: WARFARIN 4 MG TABLET. PO ONE (16:00)
[2016-08-27] MEDS: ATORVASTATIN CALCIUM 40 MG TABLET. PO SCH (21:14)
[2016-08-28 03:38] VITALS: BP 90/61
[2016-08-28 05:52] LABS: INR 2.6 (0.8-1.1); PROTHROMBIN TIME PATIENT 26.3 SEC (11.7-14.0)
[2016-08-28] MEDS: PANTOPRAZOLE 40 MG TABLET.DR. PO SCH (07:53)
[2016-08-28 07:56] VITALS: BP 97/66
[2016-08-28] MEDS: INSULIN ASPART 300 UNITS/3 ML INSULN.PEN SQ SCH ×3 (08:00→17:25)
[2016-08-28] MEDS: CARVEDILOL 6.25 MG TABLET. PO SCH ×2 (09:08→17:00)
[2016-08-28] MEDS: IRON SUCROSE COMPLEX 200 MG in IV NORMAL SALINE 100ML 100 ML IV SCH (09:10)
[2016-08-28] MEDS: AMIODARONE HCL 200 MG TABLET. PO SCH (09:10)
[2016-08-28] MEDS: ASPIRIN ENTERIC COATED 81 MG TABLET.DR. PO SCH (09:11)
--- NOTE | 2016-08-28 10:02 | PDOC ---
PROGRESS NOTES Subjective Subjective She had no new complaints. Objective Objective Vital Signs Date Time Temp Pulse Resp B/P Pulse Ox O2 Delivery O2 Flow Rate FiO2 08/28/16 09:10 68 100/66 08/28/16 07:56 98.0 18 95 Room Air 98.0 08/26/16 12:59 2.0 Intake and Output 08/28/16 07:00 Intake Total 1199 ml Output Total 0 ml Balance 1199 ml Intake Oral 1120 ml IV Total 79 ml Output Urine Total 0 ml Physical Exam Physical Exam She is sitting in bedside chair and seems comfortable and had PRAFO boots in place to both feet. Assessment Assessment Problems Medical Problems: (1) Acute on chronic renal failure Status: Acute Plan Plan of Care To transfer her to a [facility] when arrangements are completed. Comment Review of Relevant I have reviewed the following items marquise (where applicable) has been applied. Labs Laboratory Tests Test 08/26/16 12:32 08/26/16 16:43 08/26/16 21:13 08/27/16 03:33 Glucose (Fingerstick) 100mg/dL (70-99) 98mg/dL (70-99) 95mg/dL (70-99) 98mg/dL (70-99) Test 08/27/16 05:00 08/27/16 17:14 08/27/16 21:09 08/28/16 05:15 Sodium Level 136mmol/L (136-145) Potassium Level 3.9mmol/L (3.5-5.1) Chloride Level 100mmol/L (98-107) Carbon Dioxide Level 27mmol/L (21-32) Anion Gap 9 (6-14) Blood Urea Nitrogen 37mg/dL (8-26) Creatinine 1.9mg/dL (0.7-1.3) Estimated GFR (Cockcroft-Gault) 42.3 Glucose Level 98mg/dL (70-99) Calcium Level 8.3mg/dL (8.5-10.1) Glucose (Fingerstick) 118mg/dL (70-99) 113mg/dL (70-99) Prothrombin Time 26.3SEC (11.7-14.0) Prothromb Time International Ratio 2.6 (0.8-1.1) Test 08/28/16 07:59 Glucose (Fingerstick) 126mg/dL (70-99) Laboratory Tests Test 08/27/16 17:14 08/27/16 21:09 08/28/16 05:15 08/28/16 07:59 Glucose (Fingerstick) 118mg/dL (70-99) 113mg/dL (70-99) 126mg/dL (70-99) Prothrombin Time 26.3SEC (11.7-14.0) Prothromb Time International Ratio 2.6 (0.8-1.1) Microbiology 08/15/16 Urine Culture - Final, Complete 08/15/16 Urine Culture Result 1 (JV) - Final, Complete 08/15/16 Urine Culture Result 2 (JV) - Final, Complete 08/15/16 Antimicrobic Susceptibility - Final, Complete Medications Current Medications Insulin Aspart (Novolog) 0-5 UNITS TIDWMEALS SQ ; Start 08/14/16 at 17:30 Dextrose 12.5 gm 12.5 gm PRN Q15MIN PRN IV SEE COMMENTS; Start 08/14/16 at 16: 45 Sodium Chloride (Iv Sodium Chloride 0.9% 1000ml Bag) 1,000 ml @ 100 mls/hr Q10H IV Last administered on 08/14/16 18:53; Start 08/14/16 at 17:30; Stop 08/15/16 at 03:29; Status DC Amiodarone HCl (Cordarone) 200 mg DAILY PO Last administered on 08/28/16 09:10 ; Start 08/15/16 at 09:00 Aspirin (Ecotrin) 81 mg DAILY PO Last administered on 08/28/16 09:11; Start at 09:00 Atorvastatin Calcium (Lipitor) 40 mg QHS PO Last administered on 08/27/16 21: 14; Start 08/14/16 at 21:00 Carvedilol (Coreg) 6.25 mg BIDWMEALS PO Last administered on 08/28/16 09:08; Start 08/14/16 at 17:30 Colestipol HCl (Colestid) 1 gm TID PO Last administered on 08/17/16 20:55; Start 08/14/16 at 21:00; Stop 08/18/16 at 10:08; Status DC Metoclopramide HCl (Reglan) 5 mg PRN BID PRN PO NAUSEA; Start 08/14/16 at 16:45 ; Stop 08/16/16 at 10:25; Status DC Sacubitril/ Valsartan (Entresto 24 Mg-26 Mg) 1 tab BID PO Last administered on 08/17/16 09:14; Start 08/14/16 at 21:00; Stop 08/17/16 at 10:16; Status DC Warfarin Sodium (Coumadin) 2.5 mg DAILY16 PO Last administered on 08/14/16 18: 50; Start 08/14/16 at 18:00; Stop 08/15/16 at 14:13; Status DC Warfarin Sodium (Coumadin Per Physician) 1 each PRN DAILY PRN MC SEE COMMENTS; Start 08/14/16 at 17:15; Stop 08/15/16 at 09:54; Status DC Sodium Polystyrene Sulfonate (Kayexalate) 60 gm 1X ONCE PO Last administered on 08/14/16 18:51; Start 08/14/16 at 18:30; Stop 08/14/16 at 18:31; Status DC Warfarin Sodium (Coumadin Per Pharmacy) 1 each PRN DAILY PRN MC SEE COMMENTS Last administered on 08/28/16 09:33; Start 08/15/16 at 10:00 Pantoprazole Sodium 40 mg 40 mg DAILYAC PO Last administered on 08/28/16 07:53 ; Start 08/15/16 at 11:30 Dobutamine HCl/ Dextrose 250 ml @ 0 mls/hr CONT PRN IV ; Start 08/15/16 at 14:00 ; Stop 08/15/16 at 14:53; Status DC Albumin Human (Albuminar) 100 ml @ 100 mls/hr 1X ONCE IV Last administered on 08/15/16 15:25; Start 08/15/16 at 14:00; Stop 08/15/16 at 14:59; Status DC Furosemide 40 mg 40 mg 1X ONCE IVP Last administered on 08/15/16 16:22; Start 08/15/16 at 15:00; Stop 08/15/16 at 15:01; Status DC Albumin Human (Albuminar) 100 ml @ 100 mls/hr 1X ONCE IV Last administered on 08/16/16 08:41; Start 08/16/16 at 09:00; Stop 08/16/16 at 09:59; Status DC Furosemide (Lasix) 40 mg 1X ONCE IVP Last administered on 08/16/16 09:45; Start 08/16/16 at 10:00; Stop 08/16/16 at 10:01; Status DC Warfarin Sodium 4 mg 4 mg 1X WARF ONCE PO Last administered on 08/15/16 16:33 ; Start 08/15/16 at 16:00; Stop 08/15/16 at 16:01; Status DC Dobutamine HCl/ Dextrose 250 ml @ 0 mls/hr CONT PRN PRN IV SEE I/O RECORD Last administered on 08/27/16 07:02; Start 08/15/16 at 14:53 Sodium Bicarbonate 50 meq 50 meq Q2HR IV Last administered on 08/15/16 18:20; Start 08/15/16 at 16:00; Stop 08/15/16 at 18:30; Status DC Magnesium Sulfate/ Dextrose (Magnesium Sulfate PREMIX 2GM) 50 ml @ 25 mls/hr PRN DAILY PRN IV for Mag < 1.7 on am labs; Start 08/15/16 at 15:30 Warfarin Sodium (Coumadin) 4 mg 1X WARF ONCE PO Last administered on 08/16/16 17:28; Start 08/16/16 at 16:00; Stop 08/16/16 at 16:01; Status DC Ondansetron HCl 4 mg 4 mg PRN Q6HRS PRN IV nausea Last administered on 00:53; Start 08/16/16 at 20:30 Ceftriaxone Sodium 1 gm/ Sodium Chloride 50 ml @ 100 mls/hr Q24H IV Last administered on 08/19/16 10:00; Start 08/17/16 at 10:00; Stop 08/19/16 at 12:56; Status DC Sodium Chloride (Iv Sodium Chloride 0.9% 1000ml Bag) 1,000 ml @ 75 mls/hr [id number] IV Last administered on 08/19/16 16:58; Start 08/17/16 at 10:15; Stop at 09:27; Status DC Warfarin Sodium (Coumadin) 5 mg 1X WARF ONCE PO ; Start 08/17/16 at 16:00; Stop 08/17/16 at 16:01; Status DC Heparin Sodium/ Sodium Chloride 1,000 unit 1X ONCE IART Last administered on 11:45; Start 08/18/16 at 11:30; Stop 08/18/16 at 11:31; Status DC Midazolam HCl (Versed) 2 mg 1X ONCE IV Last administered on 08/18/16 11:46; Start 08/18/16 at 11:30; Stop 08/18/16 at 11:31; Status DC Fentanyl Citrate (Fentanyl 2ml Vial) 100 mcg 1X ONCE IV Last administered on 11:47; Start 08/18/16 at 11:30; Stop 08/18/16 at 11:31; Status DC Lidocaine/ Epinephrine 15 ml 15 ml 1X ONCE IJ Last administered on 08/18/16 11 :44; Start 08/18/16 at 11:30; Stop 08/18/16 at 11:31; Status DC Vancomycin HCl 250 ml @ 250 mls/hr 1X ONCE IRR Last administered on 08/18/16 11:45; Start 08/18/16 at 11:30; Stop 08/18/16 at 12:29; Status DC Heparin Sodium (Porcine) (Hep Lock Adult) 500 unit 1X ONCE IV Last administered on 08/18/16 11:46; Start 08/18/16 at 11:30; Stop 08/18/16 at 11:31; Status DC Heparin Sodium (Porcine) (Hep Lock Adult) 500 unit STK-MED ONCE IV ; Start at 09:29; Stop 08/18/16 at 11:42; Status DC Lidocaine/ Epinephrine 20 ml 20 ml STK-MED ONCE .ROUTE ; Start 08/18/16 at 09:29 ; Stop 08/18/16 at 11:42; Status DC Heparin Sodium/ Sodium Chloride 500 ml @ As Directed STK-MED ONCE .ROUTE ; Start 08/18/16 at 09:29; Stop 08/18/16 at 11:42; Status DC Vancomycin HCl 250 ml @ As Directed STK-MED ONCE .ROUTE ; Start 08/18/16 at 09: 29; Stop 08/18/16 at 11:42; Status DC Fentanyl Citrate (Fentanyl 2ml Vial) 100 mcg STK-MED ONCE .ROUTE ; Start at 10:29; Stop 08/18/16 at 11:43; Status DC Midazolam HCl 2 mg 2 mg STK-MED ONCE .ROUTE ; Start 08/18/16 at 10:30; Stop at 11:43; Status DC Iron Sucrose/ Sodium Chloride (Venofer/Iv Sodium Chloride 0.9% 100ml) 110 ml @ 55 mls/hr 3X/WEEK IV Last administered on 08/28/16 09:10; Start 08/19/16 at 09: 00; Stop 08/28/16 at 10:59 Warfarin Sodium (Coumadin) 5 mg 1X WARF ONCE PO Last administered on 08/18/16 17:56; Start 08/18/16 at 16:00; Stop 08/18/16 at 16:01; Status DC Warfarin Sodium (Coumadin) 3 mg 1X WARF ONCE PO ; Start 08/19/16 at 16:00; Stop 08/19/16 at 16:01; Status Cancel Cefpodoxime Proxetil (Vantin) 100 mg BID PO Last administered on 08/26/16 20: 40; Start 08/19/16 at 21:00; Stop 08/26/16 at 21:01; Status DC Warfarin Sodium (Coumadin) 2.5 mg 1X WARF ONCE PO Last administered on 16:59; Start 08/19/16 at 16:00; Stop 08/19/16 at 16:01; Status DC Senna/Docusate Sodium 1 tab 1 tab PRN BID PRN PO CONSTIPATION Last administered on 08/20/16 14:18; Start 08/19/16 at 13:30; Stop 08/20/16 at 14:43; Status DC Sodium Chloride 250 ml @ 0 mls/hr 1X ONCE IV Last administered on 08/19/16 14: 33; Start 08/19/16 at 13:45; Stop 08/19/16 at 13:53; Status DC Sodium Chloride (Iv Sodium Chloride 0.9% 500ml Bag) 500 ml @ 0 mls/hr 1X ONCE IV Last administered on 08/19/16 16:58; Start 08/19/16 at 16:00; Stop 08/19/16 at 16:01; Status DC Senna/Docusate Sodium (Senna Plus) 1 tab PRN BID PRN PO CONSTIPATION Last administered on 08/23/16 11:01; Start 08/20/16 at 10:00 Bisacodyl (Dulcolax Supp) 10 mg 1X ONCE NE ; Start 08/20/16 at 11:00; Stop at 11:00; Status DC Bisacodyl (Dulcolax Supp) 10 mg 1X ONCE NE Last administered on 08/20/16 16:49 ; Start 08/20/16 at 14:30; Stop 08/20/16 at 14:31; Status DC Warfarin Sodium (Coumadin) 2 mg 1X WARF ONCE PO Last administered on 08/20/16 16:48; Start 08/20/16 at 16:00; Stop 08/20/16 at 16:01; Status DC Mineral Oil (Fleet Mineral Oil) 133 ml 1X ONCE NE ; Start 08/21/16 at 20:00; Stop 08/21/16 at 20:00; Status DC Non-Formulary Medication 1 ea Q4H PO Last administered on 08/21/16 16:18; Start 08/21/16 at 12:00; Stop 08/21/16 at 16:01; Status DC Sodium Bicarbonate 50 meq Q6H IV Last administered on 08/21/16 20:16; Start 08/21/16 at 14:00; Stop 08/21/16 at 20:01; Status DC Warfarin Sodium (Coumadin) 3 mg 1X WARF ONCE PO Last administered on 08/21/16 16:16; Start 08/21/16 at 16:00; Stop 08/21/16 at 16:01; Status DC Warfarin Sodium (Coumadin) 2.5 mg 1X WARF ONCE PO Last administered on 16:00; Start 08/22/16 at 16:00; Stop 08/22/16 at 16:01; Status DC Warfarin Sodium (Coumadin) 3 mg 1X WARF ONCE PO Last administered on 08/23/16 18:28; Start 08/23/16 at 16:00; Stop 08/23/16 at 16:01; Status DC Lidocaine/ Epinephrine (Xylocaine 2%-Epi 1:100,000) 20 ml STK-MED ONCE .ROUTE ; Start 08/24/16 at 10:54; Stop 08/24/16 at 10:55; Status DC Heparin Sodium (Porcine) 14080 unit 10,000 unit STK-MED ONCE .ROUTE ; Start 03/02 at 10:54; Stop 08/24/16 at 10:55; Status DC Heparin Sodium/ Sodium Chloride 500 ml @ As Directed STK-MED ONCE .ROUTE ; Start 08/24/16 at 10:54; Stop 08/24/16 at 10:55; Status DC Darbepoetin Dino (Aranesp) 60 mcg WEEKLYHS SQ Last administered on 08/24/16 20 :59; Start 08/24/16 at 21:00 Fentanyl Citrate (Fentanyl 2ml Vial) 100 mcg STK-MED ONCE .ROUTE ; Start at 11:26; Stop 08/24/16 at 11:27; Status DC Midazolam HCl 2 mg 2 mg STK-MED ONCE .ROUTE ; Start 08/24/16 at 11:26; Stop 03/02 at 11:27; Status DC Cefazolin Sodium (Ancef 1gm Ivpb For Omni) 0 ml @ As Directed STK-MED ONCE IV ; Start 08/24/16 at 11:26; Stop 08/24/16 at 11:27; Status DC Heparin Sodium/ Sodium Chloride 1,000 unit 1X ONCE IART Last administered on 12:23; Start 08/24/16 at 11:45; Stop 08/24/16 at 11:46; Status DC Lidocaine/ Epinephrine (Xylocaine 2%-Epi 1:100,000) 20 ml 1X ONCE IJ Last administered on 08/24/16 12:23; Start 08/24/16 at 11:45; Stop 08/24/16 at 11:46 ; Status DC Fentanyl Citrate (Fentanyl 2ml Vial) 100 mcg STK-MED ONCE .ROUTE ; Start at 11:58; Stop 08/24/16 at 11:59; Status DC Midazolam HCl (Versed) 2 mg STK-MED ONCE .ROUTE ; Start 08/24/16 at 11:58; Stop 08/24/16 at 11:59; Status DC Heparin Sodium (Porcine) (Heparin Sodium) 4,300 unit 1X ONCE IV Last administered on 08/24/16 12:15; Start 08/24/16 at 12:15; Stop 08/24/16 at 12:21 ; Status DC Midazolam HCl (Versed) 2 mg 1X ONCE IV Last administered on 08/24/16 12:30; Start 08/24/16 at 12:30; Stop 08/24/16 at 12:31; Status DC Fentanyl Citrate 100 mcg 100 mcg 1X ONCE IV Last administered on 08/24/16 12: 30; Start 08/24/16 at 12:30; Stop 08/24/16 at 12:31; Status DC Cefazolin Sodium (Ancef 1gm Ivpb For Omni) 50 ml @ 100 mls/hr 1X ONCE IV Last administered on 08/24/16 12:29; Start 08/24/16 at 12:30; Stop 08/24/16 at 12:59; Status DC Warfarin Sodium (Coumadin) 4 mg 1X WARF ONCE PO Last administered on 18:08; Start 08/24/16 at 16:00; Stop 08/24/16 at 16:01; Status DC Mineral Oil (Fleet Mineral Oil) 133 ml PRN DAILY PRN NE CONSTIPATION; Start 03/02 at 19:30 Info (PHARMACY MONITORING -- do not chart) 1 each PRN DAILY PRN MC SEE COMMENTS ; Start 08/25/16 at 12:45; Stop 08/27/16 at 13:18; Status DC Info (PHARMACY MONITORING -- do not chart) 1 each PRN DAILY PRN MC SEE COMMENTS ; Start 08/25/16 at 12:45; Stop 08/27/16 at 13:18; Status DC Warfarin Sodium (Coumadin) 4 mg 1X WARF ONCE PO Last administered on 16:11; Start 08/25/16 at 16:00; Stop 08/25/16 at 16:01; Status DC Tramadol HCl (Ultram) 50 mg PRN TID PRN PO PAIN Last administered on 08/26/16 21:00; Start 08/25/16 at 15:45 Info (PHARMACY MONITORING -- do not chart) 1 each PRN DAILY PRN MC SEE COMMENTS ; Start 08/26/16 at 06:45; Stop 08/27/16 at 13:18; Status DC Warfarin Sodium (Coumadin) 4 mg 1X WARF ONCE PO Last administered on 17:13; Start 08/26/16 at 16:00; Stop 08/26/16 at 16:01; Status DC Info (PHARMACY MONITORING -- do not chart) 1 each PRN DAILY PRN MC SEE COMMENTS ; Start 08/27/16 at 08:00; Status UNV Info (PHARMACY MONITORING -- do not chart) 1 each PRN DAILY PRN MC SEE COMMENTS ; Start 08/27/16 at 08:00 Warfarin Sodium (Coumadin) 4 mg 1X WARF ONCE PO Last administered on t 18:32; Start 08/27/16 at 16:00; Stop 08/27/16 at 16:01; Status DC Warfarin Sodium (Coumadin) 3 mg 1X WARF ONCE PO ; Start 08/28/16 at 16:00; Stop 08/28/16 at 16:01 Active Scripts Active Entresto 24 mg-26 mg Tablet (Sacubitril/Valsartan) 1 Each Tablet 1 Tab PO BID Coumadin (Warfarin Sodium) 2.5 Mg Tablet 2.5 Mg PO DAILY16 Reported Reglan (Metoclopramide Hcl) 10 Mg Tablet 5 Mg PO PRN BID PRN Atorvastatin Calcium 40 Mg Tablet 1 Tab PO DAILY Colestid (Colestipol Hcl) 1 Gm Tablet 1 Gm PO TID Pacerone (Amiodarone Hcl) 200 Mg Tablet 200 Mg PO DAILY Lasix (Furosemide) 80 Mg Tablet 1 Tab PO BID Gabapentin 100 Mg Capsule 1 Cap PO TID Aspir 81 (Aspirin) 81 Mg Tablet.dr 1 Tab PO DAILY Coreg (Carvedilol) 6.25 Mg Tablet 1 Tab PO BID K-Tab ER (Potassium Chloride) 20 Meq Tablet.er 20 Meq PO BID Vitals/I & O Vital Sign - Last 24 Hours 08/27/16 08/27/16 08/27/16 08/27/16 11:00 11:00 11:45 11:45 Temp 98.0 98.0 Pulse 67 66 68 Resp 18 B/P 100/62 120/67 Pulse Ox 97 O2 Delivery Room Air Room Air 08/27/16 08/27/16 08/27/16 08/27/16 13:30 15:00 18:32 19:30 Temp 98.0 97.7 98.0 97.7 Pulse 67 65 67 Resp 18 20 B/P 100/62 103/60 106/62 Pulse Ox 93 O2 Delivery Room Air Room Air 08/27/16 08/27/16 08/28/16 08/28/16 19:30 23:10 03:38 07:56 Temp 98.7 98.2 98.3 98.0 98.7 98.2 98.3 98.0 Pulse 66 67 67 66 Resp 16 16 14 18 B/P 101/63 97/64 90/61 97/66 Pulse Ox 95 92 94 95 O2 Delivery Room Air Room Air Room Air Room Air 08/28/16 08/28/16 09:08 09:10 Pulse 66 68 B/P 97/66 100/66 Intake and Output 08/27/16 08/27/16 08/28/16 15:00 23:00 07:00 Intake Total 799 ml 400 ml Output Total 0 ml Balance 799 ml 400 ml MADDIE AMBROSE MD Aug 28, 2016 10:02
[2016-08-28] MEDS ORDERED: IV NORMAL SALINE 1000ML BAG 1,000 ML IV PRN (10:42)
[2016-08-28] MEDS ORDERED: DIALYSIS PATIENT. MC PRN ×2 (10:45)
[2016-08-28] MEDS ORDERED: 0.9 % SODIUM CHLORIDE 10 ML DISP.SYRIN. IV PRN ×2 (10:45)
--- NOTE | 2016-08-28 11:27 | PDOC ---
Renal-Progress Notes Subjective Notes Notes FEELS WELL History of Present Illness Hx of present illness STABLE Vitals Vitals Vital Signs Date Time Temp Pulse Resp B/P Pulse Ox O2 Delivery O2 Flow Rate FiO2 08/28/16 09:10 68 100/66 08/28/16 07:56 98.0 18 95 Room Air 98.0 Weight Weight [ ] I.O. Intake and Output Intake and Output 08/28/16 07:00 Intake Total 1199 ml Output Total 0 ml Balance 1199 ml Intake Oral 1120 ml IV Total 79 ml Output Urine Total 0 ml Labs Labs Laboratory Tests Test 08/27/16 17:14 08/27/16 21:09 08/28/16 05:15 08/28/16 07:59 Glucose (Fingerstick) 118mg/dL (70-99) 113mg/dL (70-99) 126mg/dL (70-99) Prothrombin Time 26.3SEC (11.7-14.0) Prothromb Time International Ratio 2.6 (0.8-1.1) Micro Micro Microbiology 08/15/16 Urine Culture - Final, Complete 08/15/16 Urine Culture Result 1 (JV) - Final, Complete 08/15/16 Urine Culture Result 2 (JV) - Final, Complete 08/15/16 Antimicrobic Susceptibility - Final, Complete Review of Systems Constitutional: yes: alert, oriented, weakness Ears/Nose/Throat: Yes: no symptom reported Eyes: Yes: no symptom reported Pulmonary: Yes no symptom reported Gastrointestional: Yes: no symptom reported Genitourinary: Yes: retention Musculoskeletal: Yes: no symptom reported Skin: Yes no symptom reported Physical Exam General Appearance: no apparent distress Skin: warm Respiratory: bilateral CTA Heart: S1S2, no thrills Abdomen: GT edema Extremities: pulses present, no edema Neurology: alert Assessment Assessment IMP ESRD ANEMIA URINARY RETENTION HYPOTONIC BLADDER S/P TUNNELED HD CATHETER SEVERE CM PLAN CONT RASHI HD TODAY MINIMUM UF MAINTAIN VALDEZ HAVE D/W CM TO SET UP OP HD IN [place] ROSSANA GAINES MD Aug 28, 2016 11:27
--- NOTE | 2016-08-28 12:19 | PDOC ---
PROGRESS NOTES Subjective Subjective no complaints ,seen in dialysis unit Objective Objective Vital Signs Date Time Temp Pulse Resp B/P Pulse Ox O2 Delivery O2 Flow Rate FiO2 08/28/16 09:10 68 100/66 08/28/16 07:56 98.0 18 95 Room Air 98.0 Intake and Output 08/28/16 07:00 Intake Total 1199 ml Output Total 0 ml Balance 1199 ml Intake Oral 1120 ml IV Total 79 ml Output Urine Total 0 ml Physical Exam Abdomen: Normal bowel sounds, Soft, No tenderness Heart: Regular rate, Normal S1, Normal S2, Other (1-2/6 systolic murmur) Extremities: Other (+2 edema bilateral extremities) General: Alert, Oriented X3, Cooperative, No acute distress HEENT: Atraumatic, PERRLA Lungs: Clear to auscultation MUSCULOSKELETAL: No joint tenderness, No deformity, No muscular tenderness noted Neck: Supple, Other (Right port is placed) Neuro: Normal speech Psych/Mental Status: Mood NL Skin: No rashes, No significant lesion Diagnosis Problem List Problems Medical Problems: (1) Acute on chronic renal failure Status: Acute Assessment Assessment New ESRD on dialysis * urinary retention. ac on crf. possible ATN started on dialysis 1. ARF with CKD II ATN SONA ,cr 2.9 no change from yesterday 2. a/c systolic CHF ICM EF 10% AICD 3. HTN 4. DM II with CKD II diet control 5. hyperlipidemia 6. mild to mod MR 7. moderate pulmonary HTN 8. severe weakness and debility 9. metabolic encephalopathy POA 10. moderate chronic PCL malnutrition PLAN: spoke with high school social studies tutor for possible d/c over weekend, d/cd [facility], watch for bladder retention, bladder scan hemo dialysis today day of dialysis. temp dialysis catheter placed wednesday. spoke with renal, plans to place temp dialysis catheter today and start dialysis . DNR ordered signed, as requested by the pt. spoke with high school social studies tutor spoke with pt+daughter. want DNR , proceed with dialysis. want to take to [place] to stay with daughter. ? hospice down the road. vascular consult, dec circulation to feet both side worse on rt side Problems: Plan Plan of Care Problems Medical Problems: (1) Acute on chronic renal failure Status: Acute Comment Review of Relevant I have reviewed the following items marquise (where applicable) has been applied. Labs Laboratory Tests Test 08/27/16 17:14 08/27/16 21:09 08/28/16 05:15 08/28/16 07:59 Glucose (Fingerstick) 118mg/dL (70-99) 113mg/dL (70-99) 126mg/dL (70-99) Prothrombin Time 26.3SEC (11.7-14.0) Prothromb Time International Ratio 2.6 (0.8-1.1) Microbiology 08/15/16 Urine Culture - Final, Complete 08/15/16 Urine Culture Result 1 (JV) - Final, Complete 08/15/16 Urine Culture Result 2 (JV) - Final, Complete 08/15/16 Antimicrobic Susceptibility - Final, Complete Medications Current Medications Info (PHARMACY MONITORING -- do not chart) 1 each PRN DAILY PRN MC SEE COMMENTS ; Start 08/28/16 at 10:45; Status UNV Info (PHARMACY MONITORING -- do not chart) 1 each PRN DAILY PRN MC SEE COMMENTS ; Start 08/28/16 at 10:45; Status UNV Sodium Chloride (Iv Sodium Chloride 0.9% 1000ml Bag) 1,000 ml @ 1,000 mls/hr Q1H PRN IV hypotension; Start 08/28/16 at 10:42; Stop 08/28/16 at 16:41 Sodium Chloride (Normal Saline Flush) 10 ml 1X PRN PRN IV AP catheter pack; Start 08/28/16 at 10:45; Stop 08/29/16 at 10:44 Sodium Chloride (Normal Saline Flush) 10 ml 1X PRN PRN IV SUPERVISOR FRONT catheter pack; Start 08/28/16 at 10:45; Stop 08/29/16 at 10:44 Warfarin Sodium (Coumadin) 4 mg 1X WARF ONCE PO Last administered on t 18:32; Start 08/27/16 at 16:00; Stop 08/27/16 at 16:01; Status DC Warfarin Sodium 3 mg 3 mg 1X WARF ONCE PO ; Start 08/28/16 at 16:00; Stop 08/28 at 16:01 Vitals/I & O Vital Sign - Last 24 Hours 08/27/16 08/27/16 08/27/16 08/27/16 13:30 15:00 18:32 19:30 Temp 98.0 97.7 98.0 97.7 Pulse 67 65 67 Resp 18 20 B/P 100/62 103/60 106/62 Pulse Ox 93 O2 Delivery Room Air Room Air 08/27/16 08/27/16 08/28/16 08/28/16 19:30 23:10 03:38 07:56 Temp 98.7 98.2 98.3 98.0 98.7 98.2 98.3 98.0 Pulse 66 67 67 66 Resp 16 16 14 18 B/P 101/63 97/64 90/61 97/66 Pulse Ox 95 92 94 95 O2 Delivery Room Air Room Air Room Air Room Air 08/28/16 08/28/16 09:08 09:10 Pulse 66 68 B/P 97/66 100/66 Intake and Output 08/27/16 08/27/16 08/28/16 15:00 23:00 07:00 Intake Total 799 ml 400 ml Output Total 0 ml Balance 799 ml 400 ml AFSHAN SLADE MD Aug 28, 2016 12:19
[2016-08-28 14:15] VITALS: BP 92/58
--- NOTE | 2016-08-28 14:39 | PDOC ---
PROGRESS NOTES Subjective Subjective Pt reports that she will be going to [facility] for the weekend while the dialysis is being set up for her in [place]. Denies any complaints currently. Objective Objective Vital Signs Date Time Temp Pulse Resp B/P Pulse Ox O2 Delivery O2 Flow Rate FiO2 08/28/16 14:15 98.6 66 18 92/58 99 Room Air 98.6 08/26/16 12:59 2.0 Intake and Output 08/28/16 07:00 Intake Total 1199 ml Output Total 0 ml Balance 1199 ml Intake Oral 1120 ml IV Total 79 ml Output Urine Total 0 ml Physical Exam Abdomen: Normal bowel sounds, Soft, No tenderness Heart: Regular rate, Normal S1, Normal S2, Other (1-2/6 systolic murmur) Extremities: No clubbing, No cyanosis General: Alert, Oriented X3, Cooperative, No acute distress HEENT: Atraumatic, PERRLA Lungs: Clear to auscultation Neck: Supple Assessment Assessment Problems Medical Problems: (1) Acute on chronic renal failure Status: Acute - Acute on chronic systolic CHF ICM EF 10% AICD - New onset of constipation. Now BM since 08/15/16 - ARF with CKD II, ATN, SONA - HTN - Severe weakness and debility - moderate pulmonary HTN - mild to mod MR - HLD - DM II Plan Plan of Care - From a cardiology standpoint, ok with discharge to [facility] - At [facility], please continue her dobutamine drip at 3 mcg/kg/min. - Once pt is discharge from [facility], dobutamine drip will need to be stop. Once she is discharged she will need to have an infusion 3 days after and then every 3 days - Pt needs to follow up with SW about infusions in [place] - Constipation- now resolved. prn mineral oil if needed - Continue to monitor her while in the hospital Thank you for your consultation! Comment Review of Relevant I have reviewed the following items marquise (where applicable) has been applied. Labs Laboratory Tests Test 08/26/16 16:43 08/26/16 21:13 08/27/16 03:33 08/27/16 05:00 Glucose (Fingerstick) 98mg/dL (70-99) 95mg/dL (70-99) 98mg/dL (70-99) Sodium Level 136mmol/L (136-145) Potassium Level 3.9mmol/L (3.5-5.1) Chloride Level 100mmol/L (98-107) Carbon Dioxide Level 27mmol/L (21-32) Anion Gap 9 (6-14) Blood Urea Nitrogen 37mg/dL (8-26) Creatinine 1.9mg/dL (0.7-1.3) Estimated GFR (Cockcroft-Gault) 42.3 Glucose Level 98mg/dL (70-99) Calcium Level 8.3mg/dL (8.5-10.1) Test 08/27/16 17:14 08/27/16 21:09 08/28/16 05:15 08/28/16 07:59 Glucose (Fingerstick) 118mg/dL (70-99) 113mg/dL (70-99) 126mg/dL (70-99) Prothrombin Time 26.3SEC (11.7-14.0) Prothromb Time International Ratio 2.6 (0.8-1.1) Laboratory Tests Test 08/27/16 17:14 08/27/16 21:09 08/28/16 05:15 08/28/16 07:59 Glucose (Fingerstick) 118mg/dL (70-99) 113mg/dL (70-99) 126mg/dL (70-99) Prothrombin Time 26.3SEC (11.7-14.0) Prothromb Time International Ratio 2.6 (0.8-1.1) Microbiology 08/15/16 Urine Culture - Final, Complete 08/15/16 Urine Culture Result 1 (JV) - Final, Complete 08/15/16 Urine Culture Result 2 (JV) - Final, Complete 08/15/16 Antimicrobic Susceptibility - Final, Complete Medications Current Medications Insulin Aspart (Novolog) 0-5 UNITS TIDWMEALS SQ ; Start 08/14/16 at 17:30 Dextrose 12.5 gm 12.5 gm PRN Q15MIN PRN IV SEE COMMENTS; Start 08/14/16 at 16: 45 Sodium Chloride (Iv Sodium Chloride 0.9% 1000ml Bag) 1,000 ml @ 100 mls/hr Q10H IV Last administered on 08/14/16t 18:53; Start 08/14/16 at 17:30; Stop 08/15/16 at 03:29; Status DC Amiodarone HCl (Cordarone) 200 mg DAILY PO Last administered on 08/28/16 09:10 ; Start 08/15/16 at 09:00 Aspirin (Ecotrin) 81 mg DAILY PO Last administered on 08/28/16 09:11; Start at 09:00 Atorvastatin Calcium (Lipitor) 40 mg QHS PO Last administered on 08/27/16 21: 14; Start 08/14/16 at 21:00 Carvedilol (Coreg) 6.25 mg BIDWMEALS PO Last administered on 08/28/16 09:08; Start 08/14/16 at 17:30 Colestipol HCl (Colestid) 1 gm TID PO Last administered on 08/17/16 20:55; Start 08/14/16 at 21:00; Stop 08/18/16 at 10:08; Status DC Metoclopramide HCl (Reglan) 5 mg PRN BID PRN PO NAUSEA; Start 08/14/16 at 16:45 ; Stop 08/16/16 at 10:25; Status DC Sacubitril/ Valsartan (Entresto 24 Mg-26 Mg) 1 tab BID PO Last administered on 08/17/16 09:14; Start 08/14/16 at 21:00; Stop 08/17/16 at 10:16; Status DC Warfarin Sodium (Coumadin) 2.5 mg DAILY16 PO Last administered on 08/14/16 18: 50; Start 08/14/16 at 18:00; Stop 08/15/16 at 14:13; Status DC Warfarin Sodium (Coumadin Per Physician) 1 each PRN DAILY PRN MC SEE COMMENTS; Start 08/14/16 at 17:15; Stop 08/15/16 at 09:54; Status DC Sodium Polystyrene Sulfonate (Kayexalate) 60 gm 1X ONCE PO Last administered on 08/14/16 18:51; Start 08/14/16 at 18:30; Stop 08/14/16 at 18:31; Status DC Warfarin Sodium (Coumadin Per Pharmacy) 1 each PRN DAILY PRN MC SEE COMMENTS Last administered on 08/28/16 09:33; Start 08/15/16 at 10:00 Pantoprazole Sodium 40 mg 40 mg DAILYAC PO Last administered on 08/28/16 07:53 ; Start 08/15/16 at 11:30 Dobutamine HCl/ Dextrose 250 ml @ 0 mls/hr CONT PRN IV ; Start 08/15/16 at 14:00 ; Stop 08/15/16 at 14:53; Status DC Albumin Human (Albuminar) 100 ml @ 100 mls/hr 1X ONCE IV Last administered on 08/15/16 15:25; Start 08/15/16 at 14:00; Stop 08/15/16 at 14:59; Status DC Furosemide 40 mg 40 mg 1X ONCE IVP Last administered on 08/15/16 16:22; Start 08/15/16 at 15:00; Stop 08/15/16 at 15:01; Status DC Albumin Human (Albuminar) 100 ml @ 100 mls/hr 1X ONCE IV Last administered on 08/16/16 08:41; Start 08/16/16 at 09:00; Stop 08/16/16 at 09:59; Status DC Furosemide (Lasix) 40 mg 1X ONCE IVP Last administered on 08/16/16 09:45; Start 08/16/16 at 10:00; Stop 08/16/16 at 10:01; Status DC Warfarin Sodium 4 mg 4 mg 1X WARF ONCE PO Last administered on 08/15/16 16:33 ; Start 08/15/16 at 16:00; Stop 08/15/16 at 16:01; Status DC Dobutamine HCl/ Dextrose 250 ml @ 0 mls/hr CONT PRN PRN IV SEE I/O RECORD Last administered on 08/27/16 07:02; Start 08/15/16 at 14:53 Sodium Bicarbonate 50 meq 50 meq Q2HR IV Last administered on 08/15/16 18:20; Start 08/15/16 at 16:00; Stop 08/15/16 at 18:30; Status DC Magnesium Sulfate/ Dextrose (Magnesium Sulfate PREMIX 2GM) 50 ml @ 25 mls/hr PRN DAILY PRN IV for Mag < 1.7 on am labs; Start 08/15/16 at 15:30 Warfarin Sodium (Coumadin) 4 mg 1X WARF ONCE PO Last administered on 08/16/16 17:28; Start 08/16/16 at 16:00; Stop 08/16/16 at 16:01; Status DC Ondansetron HCl 4 mg 4 mg PRN Q6HRS PRN IV nausea Last administered on 00:53; Start 08/16/16 at 20:30 Ceftriaxone Sodium 1 gm/ Sodium Chloride 50 ml @ 100 mls/hr Q24H IV Last administered on 08/19/16 10:00; Start 08/17/16 at 10:00; Stop 08/19/16 at 12:56; Status DC Sodium Chloride (Iv Sodium Chloride 0.9% 1000ml Bag) 1,000 ml @ 75 mls/hr [id number] IV Last administered on 08/19/16 16:58; Start 08/17/16 at 10:15; Stop at 09:27; Status DC Warfarin Sodium (Coumadin) 5 mg 1X WARF ONCE PO ; Start 08/17/16 at 16:00; Stop 08/17/16 at 16:01; Status DC Heparin Sodium/ Sodium Chloride 1,000 unit 1X ONCE IART Last administered on 11:45; Start 08/18/16 at 11:30; Stop 08/18/16 at 11:31; Status DC Midazolam HCl (Versed) 2 mg 1X ONCE IV Last administered on 08/18/16 11:46; Start 08/18/16 at 11:30; Stop 08/18/16 at 11:31; Status DC Fentanyl Citrate (Fentanyl 2ml Vial) 100 mcg 1X ONCE IV Last administered on 11:47; Start 08/18/16 at 11:30; Stop 08/18/16 at 11:31; Status DC Lidocaine/ Epinephrine 15 ml 15 ml 1X ONCE IJ Last administered on 08/18/16 11 :44; Start 08/18/16 at 11:30; Stop 08/18/16 at 11:31; Status DC Vancomycin HCl 250 ml @ 250 mls/hr 1X ONCE IRR Last administered on 08/18/16 11:45; Start 08/18/16 at 11:30; Stop 08/18/16 at 12:29; Status DC Heparin Sodium (Porcine) (Hep Lock Adult) 500 unit 1X ONCE IV Last administered on 08/18/16 11:46; Start 08/18/16 at 11:30; Stop 08/18/16 at 11:31; Status DC Heparin Sodium (Porcine) (Hep Lock Adult) 500 unit STK-MED ONCE IV ; Start at 09:29; Stop 08/18/16 at 11:42; Status DC Lidocaine/ Epinephrine 20 ml 20 ml STK-MED ONCE .ROUTE ; Start 08/18/16 at 09:29 ; Stop 08/18/16 at 11:42; Status DC Heparin Sodium/ Sodium Chloride 500 ml @ As Directed STK-MED ONCE .ROUTE ; Start 08/18/16 at 09:29; Stop 08/18/16 at 11:42; Status DC Vancomycin HCl 250 ml @ As Directed STK-MED ONCE .ROUTE ; Start 08/18/16 at 09: 29; Stop 08/18/16 at 11:42; Status DC Fentanyl Citrate (Fentanyl 2ml Vial) 100 mcg STK-MED ONCE .ROUTE ; Start at 10:29; Stop 08/18/16 at 11:43; Status DC Midazolam HCl 2 mg 2 mg STK-MED ONCE .ROUTE ; Start 08/18/16 at 10:30; Stop at 11:43; Status DC Iron Sucrose/ Sodium Chloride (Venofer/Iv Sodium Chloride 0.9% 100ml) 110 ml @ 55 mls/hr 3X/WEEK IV Last administered on 08/28/16 09:10; Start 08/19/16 at 09: 00; Stop 08/28/16 at 10:59; Status DC Warfarin Sodium (Coumadin) 5 mg 1X WARF ONCE PO Last administered on 08/18/16 17:56; Start 08/18/16 at 16:00; Stop 08/18/16 at 16:01; Status DC Warfarin Sodium (Coumadin) 3 mg 1X WARF ONCE PO ; Start 08/19/16 at 16:00; Stop 08/19/16 at 16:01; Status Cancel Cefpodoxime Proxetil (Vantin) 100 mg BID PO Last administered on 08/26/16 20: 40; Start 08/19/16 at 21:00; Stop 08/26/16 at 21:01; Status DC Warfarin Sodium (Coumadin) 2.5 mg 1X WARF ONCE PO Last administered on 16:59; Start 08/19/16 at 16:00; Stop 08/19/16 at 16:01; Status DC Senna/Docusate Sodium 1 tab 1 tab PRN BID PRN PO CONSTIPATION Last administered on 08/20/16 14:18; Start 08/19/16 at 13:30; Stop 08/20/16 at 14:43; Status DC Sodium Chloride 250 ml @ 0 mls/hr 1X ONCE IV Last administered on 08/19/16 14: 33; Start 08/19/16 at 13:45; Stop 08/19/16 at 13:53; Status DC Sodium Chloride (Iv Sodium Chloride 0.9% 500ml Bag) 500 ml @ 0 mls/hr 1X ONCE IV Last administered on 08/19/16 16:58; Start 08/19/16 at 16:00; Stop 08/19/16 at 16:01; Status DC Senna/Docusate Sodium (Senna Plus) 1 tab PRN BID PRN PO CONSTIPATION Last administered on 08/23/16 11:01; Start 08/20/16 at 10:00 Bisacodyl (Dulcolax Supp) 10 mg 1X ONCE [place] ; Start 08/20/16 at 11:00; Stop at 11:00; Status DC Bisacodyl (Dulcolax Supp) 10 mg 1X ONCE W[place] Last administered on 08/20/16 16:49 ; Start 08/20/16 at 14:30; Stop 08/20/16 at 14:31; Status DC Warfarin Sodium (Coumadin) 2 mg 1X WARF ONCE PO Last administered on 08/20/16 16:48; Start 08/20/16 at 16:00; Stop 08/20/16 at 16:01; Status DC Mineral Oil (Fleet Mineral Oil) 133 ml 1X ONCE [place] ; Start 08/21/16 at 20:00; Stop 08/21/16 at 20:00; Status DC Non-Formulary Medication 1 ea Q4H PO Last administered on 08/21/16 16:18; Start 08/21/16 at 12:00; Stop 08/21/16 at 16:01; Status DC Sodium Bicarbonate 50 meq Q6H IV Last administered on 08/21/16 20:16; Start 08/21/16 at 14:00; Stop 08/21/16 at 20:01; Status DC Warfarin Sodium (Coumadin) 3 mg 1X WARF ONCE PO Last administered on 08/21/16 16:16; Start 08/21/16 at 16:00; Stop 08/21/16 at 16:01; Status DC Warfarin Sodium (Coumadin) 2.5 mg 1X WARF ONCE PO Last administered on 16:00; Start 08/22/16 at 16:00; Stop 08/22/16 at 16:01; Status DC Warfarin Sodium (Coumadin) 3 mg 1X WARF ONCE PO Last administered on 08/23/16 18:28; Start 08/23/16 at 16:00; Stop 08/23/16 at 16:01; Status DC Lidocaine/ Epinephrine (Xylocaine 2%-Epi 1:100,000) 20 ml STK-MED ONCE .ROUTE ; Start 08/24/16 at 10:54; Stop 08/24/16 at 10:55; Status DC Heparin Sodium (Porcine) 99821 unit 10,000 unit STK-MED ONCE .ROUTE ; Start 03/02 at 10:54; Stop 08/24/16 at 10:55; Status DC Heparin Sodium/ Sodium Chloride 500 ml @ As Directed STK-MED ONCE .ROUTE ; Start 08/24/16 at 10:54; Stop 08/24/16 at 10:55; Status DC Darbepoetin Dino (Aranesp) 60 mcg WEEKLYHS SQ Last administered on 08/24/16 20 :59; Start 08/24/16 at 21:00 Fentanyl Citrate (Fentanyl 2ml Vial) 100 mcg STK-MED ONCE .ROUTE ; Start at 11:26; Stop 08/24/16 at 11:27; Status DC Midazolam HCl 2 mg 2 mg STK-MED ONCE .ROUTE ; Start 08/24/16 at 11:26; Stop 03/02 at 11:27; Status DC Cefazolin Sodium (Ancef 1gm Ivpb For Omni) 0 ml @ As Directed STK-MED ONCE IV ; Start 08/24/16 at 11:26; Stop 08/24/16 at 11:27; Status DC Heparin Sodium/ Sodium Chloride 1,000 unit 1X ONCE IART Last administered on 12:23; Start 08/24/16 at 11:45; Stop 08/24/16 at 11:46; Status DC Lidocaine/ Epinephrine (Xylocaine 2%-Epi 1:100,000) 20 ml 1X ONCE IJ Last administered on 08/24/16 12:23; Start 08/24/16 at 11:45; Stop 08/24/16 at 11:46 ; Status DC Fentanyl Citrate (Fentanyl 2ml Vial) 100 mcg STK-MED ONCE .ROUTE ; Start at 11:58; Stop 08/24/16 at 11:59; Status DC Midazolam HCl (Versed) 2 mg STK-MED ONCE .ROUTE ; Start 08/24/16 at 11:58; Stop 08/24/16 at 11:59; Status DC Heparin Sodium (Porcine) (Heparin Sodium) 4,300 unit 1X ONCE IV Last administered on 08/24/16 12:15; Start 08/24/16 at 12:15; Stop 08/24/16 at 12:21 ; Status DC Midazolam HCl (Versed) 2 mg 1X ONCE IV Last administered on 08/24/16 12:30; Start 08/24/16 at 12:30; Stop 08/24/16 at 12:31; Status DC Fentanyl Citrate 100 mcg 100 mcg 1X ONCE IV Last administered on 08/24/16 12: 30; Start 08/24/16 at 12:30; Stop 08/24/16 at 12:31; Status DC Cefazolin Sodium (Ancef 1gm Ivpb For Omni) 50 ml @ 100 mls/hr 1X ONCE IV Last administered on 08/24/16 12:29; Start 08/24/16 at 12:30; Stop 08/24/16 at 12:59; Status DC Warfarin Sodium (Coumadin) 4 mg 1X WARF ONCE PO Last administered on 18:08; Start 08/24/16 at 16:00; Stop 08/24/16 at 16:01; Status DC Mineral Oil (Fleet Mineral Oil) 133 ml PRN DAILY PRN [place] CONSTIPATION; Start 03/02 at 19:30 Info (PHARMACY MONITORING -- do not chart) 1 each PRN DAILY PRN MC SEE COMMENTS ; Start 08/25/16 at 12:45; Stop 08/27/16 at 13:18; Status DC Info (PHARMACY MONITORING -- do not chart) 1 each PRN DAILY PRN MC SEE COMMENTS ; Start 08/25/16 at 12:45; Stop 08/27/16 at 13:18; Status DC Warfarin Sodium (Coumadin) 4 mg 1X WARF ONCE PO Last administered on 16:11; Start 08/25/16 at 16:00; Stop 08/25/16 at 16:01; Status DC Tramadol HCl (Ultram) 50 mg PRN TID PRN PO PAIN Last administered on 08/26/16 21:00; Start 08/25/16 at 15:45 Info (PHARMACY MONITORING -- do not chart) 1 each PRN DAILY PRN MC SEE COMMENTS ; Start 08/26/16 at 06:45; Stop 08/27/16 at 13:18; Status DC Warfarin Sodium (Coumadin) 4 mg 1X WARF ONCE PO Last administered on 17:13; Start 08/26/16 at 16:00; Stop 08/26/16 at 16:01; Status DC Info (PHARMACY MONITORING -- do not chart) 1 each PRN DAILY PRN MC SEE COMMENTS ; Start 08/27/16 at 08:00; Status UNV Info (PHARMACY MONITORING -- do not chart) 1 each PRN DAILY PRN MC SEE COMMENTS ; Start 08/27/16 at 08:00 Warfarin Sodium (Coumadin) 4 mg 1X WARF ONCE PO Last administered on 18:32; Start 08/27/16 at 16:00; Stop 08/27/16 at 16:01; Status DC Warfarin Sodium 3 mg 3 mg 1X WARF ONCE PO ; Start 08/28/16 at 16:00; Stop 08/28 at 16:01 Sodium Chloride (Iv Sodium Chloride 0.9% 1000ml Bag) 1,000 ml @ 1,000 mls/hr Q1H PRN IV hypotension; Start 08/28/16 at 10:42; Stop 08/28/16 at 16:41 Sodium Chloride (Normal Saline Flush) 10 ml 1X PRN PRN IV AP catheter pack; Start 08/28/16 at 10:45; Stop 08/29/16 at 10:44 Sodium Chloride (Normal Saline Flush) 10 ml 1X PRN PRN IV MANNEQUIN MOLDER catheter pack; Start 08/28/16 at 10:45; Stop 08/29/16 at 10:44 Info (PHARMACY MONITORING -- do not chart) 1 each PRN DAILY PRN MC SEE COMMENTS ; Start 08/28/16 at 10:45; Status UNV Info (PHARMACY MONITORING -- do not chart) 1 each PRN DAILY PRN MC SEE COMMENTS ; Start 08/28/16 at 10:45; Status UNV Active Scripts Active Entresto 24 mg-26 mg Tablet (Sacubitril/Valsartan) 1 Each Tablet 1 Tab PO BID Coumadin (Warfarin Sodium) 2.5 Mg Tablet 2.5 Mg PO DAILY16 Reported Reglan (Metoclopramide Hcl) 10 Mg Tablet 5 Mg PO PRN BID PRN Atorvastatin Calcium 40 Mg Tablet 1 Tab PO DAILY Colestid (Colestipol Hcl) 1 Gm Tablet 1 Gm PO TID Pacerone (Amiodarone Hcl) 200 Mg Tablet 200 Mg PO DAILY Lasix (Furosemide) 80 Mg Tablet 1 Tab PO BID Gabapentin 100 Mg Capsule 1 Cap PO TID Aspir 81 (Aspirin) 81 Mg Tablet.dr 1 Tab PO DAILY Coreg (Carvedilol) 6.25 Mg Tablet 1 Tab PO BID K-Tab ER (Potassium Chloride) 20 Meq Tablet.er 20 Meq PO BID Vitals/I & O Vital Sign - Last 24 Hours 08/27/16 08/27/16 08/27/16 08/27/16 15:00 18:32 19:30 19:30 Temp 97.7 98.7 97.7 98.7 Pulse 65 67 66 Resp 20 16 B/P 103/60 106/62 101/63 Pulse Ox 95 O2 Delivery Room Air Room Air 08/27/16 08/28/16 08/28/16 08/28/16 23:10 03:38 07:56 09:08 Temp 98.2 98.3 98.0 98.2 98.3 98.0 Pulse 67 67 66 66 Resp 16 14 18 B/P 97/64 90/61 97/66 97/66 Pulse Ox 92 94 95 O2 Delivery Room Air Room Air Room Air 08/28/16 08/28/16 09:10 14:15 Temp 98.6 98.6 Pulse 68 66 Resp 18 B/P 100/66 92/58 Pulse Ox 99 O2 Delivery Room Air Intake and Output 08/27/16 08/27/16 08/28/16 15:00 23:00 07:00 Intake Total 799 ml 400 ml Output Total 0 ml Balance 799 ml 400 ml HEATHER CHERRY MD Aug 28, 2016 14:39
[2016-08-28] MEDS ORDERED: WARFARIN 3 MG TABLET. PO ONE (16:00)
[2016-08-28] MEDS: TRAMADOL 50 MG TABLET. PO PRN (16:19)
[2016-08-28] MEDS: SENNOSIDES/DOCUSATE 8.6/50MG TABLET. PO PRN (16:20)
[2016-08-28 19:20] VITALS: BP 88/50
[2016-08-28] MEDS: ATORVASTATIN CALCIUM 40 MG TABLET. PO SCH (21:07)
[2016-08-28 23:45] VITALS: BP 102/59
[2016-08-29 03:40] VITALS: BP 98/62
[2016-08-29 05:30] LABS: INR 2.8 (0.8-1.1); PROTHROMBIN TIME PATIENT 27.6 SEC (11.7-14.0)
[2016-08-29 07:30] VITALS: BP 97/62
[2016-08-29] MEDS: INSULIN ASPART 300 UNITS/3 ML INSULN.PEN SQ SCH ×3 (08:00→17:00)
[2016-08-29] MEDS: PANTOPRAZOLE 40 MG TABLET.DR. PO SCH (10:18)
[2016-08-29] MEDS: CARVEDILOL 6.25 MG TABLET. PO SCH ×2 (10:20→17:00)
[2016-08-29] MEDS: ASPIRIN ENTERIC COATED 81 MG TABLET.DR. PO SCH (10:21)
[2016-08-29] MEDS: AMIODARONE HCL 200 MG TABLET. PO SCH (10:21)
--- NOTE | 2016-08-29 10:36 | PDOC ---
PROGRESS NOTES Subjective Subjective She had no new complaints. Objective Objective Vital Signs Date Time Temp Pulse Resp B/P Pulse Ox O2 Delivery O2 Flow Rate FiO2 08/29/16 10:21 67 99/57 08/29/16 07:30 98.0 20 98 Room Air 98.0 08/26/16 12:59 2.0 Intake and Output 08/29/16 07:00 Intake Total 1010 ml Output Total 0 ml Balance 1010 ml Intake Oral 900 ml IV Total 110 ml Output Urine Total 0 ml Physical Exam Physical Exam She is alert,comfortable sitting up in bedside chair and PRAFO boots in place. Assessment Assessment Problems Medical Problems: (1) Acute on chronic renal failure Status: Acute Plan Plan of Care To continue present physical and occupational therapy as tolerated. Comment Review of Relevant I have reviewed the following items marquise (where applicable) has been applied. Labs Laboratory Tests Test 08/27/16 17:14 08/27/16 21:09 08/28/16 05:15 08/28/16 07:59 Glucose (Fingerstick) 118mg/dL (70-99) 113mg/dL (70-99) 126mg/dL (70-99) Prothrombin Time 26.3SEC (11.7-14.0) Prothromb Time International Ratio 2.6 (0.8-1.1) Test 08/28/16 16:48 08/28/16 20:48 08/29/16 04:10 08/29/16 07:35 Glucose (Fingerstick) 161mg/dL (70-99) 121mg/dL (70-99) 125mg/dL (70-99) Prothrombin Time 27.6SEC (11.7-14.0) Prothromb Time International Ratio 2.8 (0.8-1.1) Laboratory Tests Test 08/28/16 16:48 08/28/16 20:48 08/29/16 04:10 08/29/16 07:35 Glucose (Fingerstick) 161mg/dL (70-99) 121mg/dL (70-99) 125mg/dL (70-99) Prothrombin Time 27.6SEC (11.7-14.0) Prothromb Time International Ratio 2.8 (0.8-1.1) Microbiology 08/15/16 Urine Culture - Final, Complete 08/15/16 Urine Culture Result 1 (JV) - Final, Complete 08/15/16 Urine Culture Result 2 (JV) - Final, Complete 08/15/16 Antimicrobic Susceptibility - Final, Complete Medications Current Medications Insulin Aspart (Novolog) 0-5 UNITS TIDWMEALS SQ Last administered on 08/28/16 17:25; Start 08/14/16 at 17:30 Dextrose 12.5 gm 12.5 gm PRN Q15MIN PRN IV SEE COMMENTS; Start 08/14/16 at 16: 45 Sodium Chloride (Iv Sodium Chloride 0.9% 1000ml Bag) 1,000 ml @ 100 mls/hr Q10H IV Last administered on 08/14/16 18:53; Start 08/14/16 at 17:30; Stop 08/15/16 at 03:29; Status DC Amiodarone HCl (Cordarone) 200 mg DAILY PO Last administered on 08/29/16 10:21 ; Start 08/15/16 at 09:00 Aspirin (Ecotrin) 81 mg DAILY PO Last administered on 08/29/16 10:21; Start at 09:00 Atorvastatin Calcium (Lipitor) 40 mg QHS PO Last administered on 08/28/16 21: 07; Start 08/14/16 at 21:00 Carvedilol (Coreg) 6.25 mg BIDWMEALS PO Last administered on 08/29/16 10:20; Start 08/14/16 at 17:30 Colestipol HCl (Colestid) 1 gm TID PO Last administered on 08/17/16 20:55; Start 08/14/16 at 21:00; Stop 08/18/16 at 10:08; Status DC Metoclopramide HCl (Reglan) 5 mg PRN BID PRN PO NAUSEA; Start 08/14/16 at 16:45 ; Stop 08/16/16 at 10:25; Status DC Sacubitril/ Valsartan (Entresto 24 Mg-26 Mg) 1 tab BID PO Last administered on 08/17/16 09:14; Start 08/14/16 at 21:00; Stop 08/17/16 at 10:16; Status DC Warfarin Sodium (Coumadin) 2.5 mg DAILY16 PO Last administered on 08/14/16 18: 50; Start 08/14/16 at 18:00; Stop 08/15/16 at 14:13; Status DC Warfarin Sodium (Coumadin Per Physician) 1 each PRN DAILY PRN MC SEE COMMENTS; Start 08/14/16 at 17:15; Stop 08/15/16 at 09:54; Status DC Sodium Polystyrene Sulfonate (Kayexalate) 60 gm 1X ONCE PO Last administered on 08/14/16 18:51; Start 08/14/16 at 18:30; Stop 08/14/16 at 18:31; Status DC Warfarin Sodium (Coumadin Per Pharmacy) 1 each PRN DAILY PRN MC SEE COMMENTS Last administered on 08/29/16 08:08; Start 08/15/16 at 10:00 Pantoprazole Sodium 40 mg 40 mg DAILYAC PO Last administered on 08/29/16 10:18 ; Start 08/15/16 at 11:30 Dobutamine HCl/ Dextrose 250 ml @ 0 mls/hr CONT PRN IV ; Start 08/15/16 at 14:00 ; Stop 08/15/16 at 14:53; Status DC Albumin Human (Albuminar) 100 ml @ 100 mls/hr 1X ONCE IV Last administered on 08/15/16 15:25; Start 08/15/16 at 14:00; Stop 08/15/16 at 14:59; Status DC Furosemide 40 mg 40 mg 1X ONCE IVP Last administered on 08/15/16 16:22; Start 08/15/16 at 15:00; Stop 08/15/16 at 15:01; Status DC Albumin Human (Albuminar) 100 ml @ 100 mls/hr 1X ONCE IV Last administered on 08/16/16 08:41; Start 08/16/16 at 09:00; Stop 08/16/16 at 09:59; Status DC Furosemide (Lasix) 40 mg 1X ONCE IVP Last administered on 08/16/16 09:45; Start 08/16/16 at 10:00; Stop 08/16/16 at 10:01; Status DC Warfarin Sodium 4 mg 4 mg 1X WARF ONCE PO Last administered on 08/15/16 16:33 ; Start 08/15/16 at 16:00; Stop 08/15/16 at 16:01; Status DC Dobutamine HCl/ Dextrose 250 ml @ 0 mls/hr CONT PRN PRN IV SEE I/O RECORD Last administered on 08/27/16 07:02; Start 08/15/16 at 14:53 Sodium Bicarbonate 50 meq 50 meq Q2HR IV Last administered on 08/15/16 18:20; Start 08/15/16 at 16:00; Stop 08/15/16 at 18:30; Status DC Magnesium Sulfate/ Dextrose (Magnesium Sulfate PREMIX 2GM) 50 ml @ 25 mls/hr PRN DAILY PRN IV for Mag < 1.7 on am labs; Start 08/15/16 at 15:30 Warfarin Sodium (Coumadin) 4 mg 1X WARF ONCE PO Last administered on 08/16/16 17:28; Start 08/16/16 at 16:00; Stop 08/16/16 at 16:01; Status DC Ondansetron HCl 4 mg 4 mg PRN Q6HRS PRN IV nausea Last administered on 00:53; Start 08/16/16 at 20:30 Ceftriaxone Sodium 1 gm/ Sodium Chloride 50 ml @ 100 mls/hr Q24H IV Last administered on 08/19/16 10:00; Start 08/17/16 at 10:00; Stop 08/19/16 at 12:56; Status DC Sodium Chloride (Iv Sodium Chloride 0.9% 1000ml Bag) 1,000 ml @ 75 mls/hr [id number] IV Last administered on 08/19/16 16:58; Start 08/17/16 at 10:15; Stop at 09:27; Status DC Warfarin Sodium (Coumadin) 5 mg 1X WARF ONCE PO ; Start 08/17/16 at 16:00; Stop 08/17/16 at 16:01; Status DC Heparin Sodium/ Sodium Chloride 1,000 unit 1X ONCE IART Last administered on 11:45; Start 08/18/16 at 11:30; Stop 08/18/16 at 11:31; Status DC Midazolam HCl (Versed) 2 mg 1X ONCE IV Last administered on 08/18/16 11:46; Start 08/18/16 at 11:30; Stop 08/18/16 at 11:31; Status DC Fentanyl Citrate (Fentanyl 2ml Vial) 100 mcg 1X ONCE IV Last administered on 11:47; Start 08/18/16 at 11:30; Stop 08/18/16 at 11:31; Status DC Lidocaine/ Epinephrine 15 ml 15 ml 1X ONCE IJ Last administered on 08/18/16 11 :44; Start 08/18/16 at 11:30; Stop 08/18/16 at 11:31; Status DC Vancomycin HCl 250 ml @ 250 mls/hr 1X ONCE IRR Last administered on 08/18/16 11:45; Start 08/18/16 at 11:30; Stop 08/18/16 at 12:29; Status DC Heparin Sodium (Porcine) (Hep Lock Adult) 500 unit 1X ONCE IV Last administered on 08/18/16 11:46; Start 08/18/16 at 11:30; Stop 08/18/16 at 11:31; Status DC Heparin Sodium (Porcine) (Hep Lock Adult) 500 unit STK-MED ONCE IV ; Start at 09:29; Stop 08/18/16 at 11:42; Status DC Lidocaine/ Epinephrine 20 ml 20 ml STK-MED ONCE .ROUTE ; Start 08/18/16 at 09:29 ; Stop 08/18/16 at 11:42; Status DC Heparin Sodium/ Sodium Chloride 500 ml @ As Directed STK-MED ONCE .ROUTE ; Start 08/18/16 at 09:29; Stop 08/18/16 at 11:42; Status DC Vancomycin HCl 250 ml @ As Directed STK-MED ONCE .ROUTE ; Start 08/18/16 at 09: 29; Stop 08/18/16 at 11:42; Status DC Fentanyl Citrate (Fentanyl 2ml Vial) 100 mcg STK-MED ONCE .ROUTE ; Start at 10:29; Stop 08/18/16 at 11:43; Status DC Midazolam HCl 2 mg 2 mg STK-MED ONCE .ROUTE ; Start 08/18/16 at 10:30; Stop at 11:43; Status DC Iron Sucrose/ Sodium Chloride (Venofer/Iv Sodium Chloride 0.9% 100ml) 110 ml @ 55 mls/hr 3X/WEEK IV Last administered on 08/28/16 09:10; Start 08/19/16 at 09: 00; Stop 08/28/16 at 10:59; Status DC Warfarin Sodium (Coumadin) 5 mg 1X WARF ONCE PO Last administered on 08/18/16 17:56; Start 08/18/16 at 16:00; Stop 08/18/16 at 16:01; Status DC Warfarin Sodium (Coumadin) 3 mg 1X WARF ONCE PO ; Start 08/19/16 at 16:00; Stop 08/19/16 at 16:01; Status Cancel Cefpodoxime Proxetil (Vantin) 100 mg BID PO Last administered on 08/26/16 20: 40; Start 08/19/16 at 21:00; Stop 08/26/16 at 21:01; Status DC Warfarin Sodium (Coumadin) 2.5 mg 1X WARF ONCE PO Last administered on 16:59; Start 08/19/16 at 16:00; Stop 08/19/16 at 16:01; Status DC Senna/Docusate Sodium 1 tab 1 tab PRN BID PRN PO CONSTIPATION Last administered on 08/20/16 14:18; Start 08/19/16 at 13:30; Stop 08/20/16 at 14:43; Status DC Sodium Chloride 250 ml @ 0 mls/hr 1X ONCE IV Last administered on 08/19/16 14: 33; Start 08/19/16 at 13:45; Stop 08/19/16 at 13:53; Status DC Sodium Chloride (Iv Sodium Chloride 0.9% 500ml Bag) 500 ml @ 0 mls/hr 1X ONCE IV Last administered on 08/19/16 16:58; Start 08/19/16 at 16:00; Stop 08/19/16 at 16:01; Status DC Senna/Docusate Sodium (Senna Plus) 1 tab PRN BID PRN PO CONSTIPATION Last administered on 08/28/16 16:20; Start 08/20/16 at 10:00 Bisacodyl (Dulcolax Supp) 10 mg 1X ONCE NH ; Start 08/20/16 at 11:00; Stop at 11:00; Status DC Bisacodyl (Dulcolax Supp) 10 mg 1X ONCE NH Last administered on 08/20/16 16:49 ; Start 08/20/16 at 14:30; Stop 08/20/16 at 14:31; Status DC Warfarin Sodium (Coumadin) 2 mg 1X WARF ONCE PO Last administered on 08/20/16 16:48; Start 08/20/16 at 16:00; Stop 08/20/16 at 16:01; Status DC Mineral Oil (Fleet Mineral Oil) 133 ml 1X ONCE NH ; Start 08/21/16 at 20:00; Stop 08/21/16 at 20:00; Status DC Non-Formulary Medication 1 ea Q4H PO Last administered on 08/21/16 16:18; Start 08/21/16 at 12:00; Stop 08/21/16 at 16:01; Status DC Sodium Bicarbonate 50 meq Q6H IV Last administered on 08/21/16 20:16; Start 08/21/16 at 14:00; Stop 08/21/16 at 20:01; Status DC Warfarin Sodium (Coumadin) 3 mg 1X WARF ONCE PO Last administered on 08/21/16 16:16; Start 08/21/16 at 16:00; Stop 08/21/16 at 16:01; Status DC Warfarin Sodium (Coumadin) 2.5 mg 1X WARF ONCE PO Last administered on 16:00; Start 08/22/16 at 16:00; Stop 08/22/16 at 16:01; Status DC Warfarin Sodium (Coumadin) 3 mg 1X WARF ONCE PO Last administered on 08/23/16 18:28; Start 08/23/16 at 16:00; Stop 08/23/16 at 16:01; Status DC Lidocaine/ Epinephrine (Xylocaine 2%-Epi 1:100,000) 20 ml STK-MED ONCE .ROUTE ; Start 08/24/16 at 10:54; Stop 08/24/16 at 10:55; Status DC Heparin Sodium (Porcine) 98111 unit 10,000 unit STK-MED ONCE .ROUTE ; Start 03/02 at 10:54; Stop 08/24/16 at 10:55; Status DC Heparin Sodium/ Sodium Chloride 500 ml @ As Directed STK-MED ONCE .ROUTE ; Start 08/24/16 at 10:54; Stop 08/24/16 at 10:55; Status DC Darbepoetin Dino (Aranesp) 60 mcg WEEKLYHS SQ Last administered on 08/24/16 20 :59; Start 08/24/16 at 21:00 Fentanyl Citrate (Fentanyl 2ml Vial) 100 mcg STK-MED ONCE .ROUTE ; Start at 11:26; Stop 08/24/16 at 11:27; Status DC Midazolam HCl 2 mg 2 mg STK-MED ONCE .ROUTE ; Start 08/24/16 at 11:26; Stop 03/02 at 11:27; Status DC Cefazolin Sodium (Ancef 1gm Ivpb For Omni) 0 ml @ As Directed STK-MED ONCE IV ; Start 08/24/16 at 11:26; Stop 08/24/16 at 11:27; Status DC Heparin Sodium/ Sodium Chloride 1,000 unit 1X ONCE IART Last administered on 12:23; Start 08/24/16 at 11:45; Stop 08/24/16 at 11:46; Status DC Lidocaine/ Epinephrine (Xylocaine 2%-Epi 1:100,000) 20 ml 1X ONCE IJ Last administered on 08/24/16 12:23; Start 08/24/16 at 11:45; Stop 08/24/16 at 11:46 ; Status DC Fentanyl Citrate (Fentanyl 2ml Vial) 100 mcg STK-MED ONCE .ROUTE ; Start at 11:58; Stop 08/24/16 at 11:59; Status DC Midazolam HCl (Versed) 2 mg STK-MED ONCE .ROUTE ; Start 08/24/16 at 11:58; Stop 08/24/16 at 11:59; Status DC Heparin Sodium (Porcine) (Heparin Sodium) 4,300 unit 1X ONCE IV Last administered on 08/24/16 12:15; Start 08/24/16 at 12:15; Stop 08/24/16 at 12:21 ; Status DC Midazolam HCl (Versed) 2 mg 1X ONCE IV Last administered on 08/24/16 12:30; Start 08/24/16 at 12:30; Stop 08/24/16 at 12:31; Status DC Fentanyl Citrate 100 mcg 100 mcg 1X ONCE IV Last administered on 08/24/16 12: 30; Start 08/24/16 at 12:30; Stop 08/24/16 at 12:31; Status DC Cefazolin Sodium (Ancef 1gm Ivpb For Omni) 50 ml @ 100 mls/hr 1X ONCE IV Last administered on 08/24/16 12:29; Start 08/24/16 at 12:30; Stop 08/24/16 at 12:59; Status DC Warfarin Sodium (Coumadin) 4 mg 1X WARF ONCE PO Last administered on 18:08; Start 08/24/16 at 16:00; Stop 08/24/16 at 16:01; Status DC Mineral Oil (Fleet Mineral Oil) 133 ml PRN DAILY PRN [place] CONSTIPATION; Start 03/02 at 19:30 Info (PHARMACY MONITORING -- do not chart) 1 each PRN DAILY PRN MC SEE COMMENTS ; Start 08/25/16 at 12:45; Stop 08/27/16 at 13:18; Status DC Info (PHARMACY MONITORING -- do not chart) 1 each PRN DAILY PRN MC SEE COMMENTS ; Start 08/25/16 at 12:45; Stop 08/27/16 at 13:18; Status DC Warfarin Sodium (Coumadin) 4 mg 1X WARF ONCE PO Last administered on 16:11; Start 08/25/16 at 16:00; Stop 08/25/16 at 16:01; Status DC Tramadol HCl (Ultram) 50 mg PRN TID PRN PO PAIN Last administered on 08/28/16 16:19; Start 08/25/16 at 15:45 Info (PHARMACY MONITORING -- do not chart) 1 each PRN DAILY PRN MC SEE COMMENTS ; Start 08/26/16 at 06:45; Stop 08/27/16 at 13:18; Status DC Warfarin Sodium (Coumadin) 4 mg 1X WARF ONCE PO Last administered on 17:13; Start 08/26/16 at 16:00; Stop 08/26/16 at 16:01; Status DC Info (PHARMACY MONITORING -- do not chart) 1 each PRN DAILY PRN MC SEE COMMENTS ; Start 08/27/16 at 08:00; Status UNV Info (PHARMACY MONITORING -- do not chart) 1 each PRN DAILY PRN MC SEE COMMENTS ; Start 08/27/16 at 08:00 Warfarin Sodium (Coumadin) 4 mg 1X WARF ONCE PO Last administered on 18:32; Start 08/27/16 at 16:00; Stop 08/27/16 at 16:01; Status DC Warfarin Sodium 3 mg 3 mg 1X WARF ONCE PO Last administered on 08/28/16 17:15 ; Start 08/28/16 at 16:00; Stop 08/28/16 at 16:01; Status DC Sodium Chloride (Iv Sodium Chloride 0.9% 1000ml Bag) 1,000 ml @ 1,000 mls/hr Q1H PRN IV hypotension; Start 08/28/16 at 10:42; Stop 08/28/16 at 16:41; Status DC Sodium Chloride (Normal Saline Flush) 10 ml 1X PRN PRN IV AP catheter pack; Start 08/28/16 at 10:45; Stop 08/29/16 at 10:44 Sodium Chloride (Normal Saline Flush) 10 ml 1X PRN PRN IV RN INTERVENTIONAL catheter pack; Start 08/28/16 at 10:45; Stop 08/29/16 at 10:44 Info (PHARMACY MONITORING -- do not chart) 1 each PRN DAILY PRN MC SEE COMMENTS ; Start 08/28/16 at 10:45; Status UNV Info (PHARMACY MONITORING -- do not chart) 1 each PRN DAILY PRN MC SEE COMMENTS ; Start 08/28/16 at 10:45; Status UNV Warfarin Sodium (Coumadin) 2.5 mg 1X WARF ONCE PO ; Start 08/29/16 at 16:00; Stop 08/29/16 at 16:01 Active Scripts Active Entresto 24 mg-26 mg Tablet (Sacubitril/Valsartan) 1 Each Tablet 1 Tab PO BID Coumadin (Warfarin Sodium) 2.5 Mg Tablet 2.5 Mg PO DAILY16 Reported Reglan (Metoclopramide Hcl) 10 Mg Tablet 5 Mg PO PRN BID PRN Atorvastatin Calcium 40 Mg Tablet 1 Tab PO DAILY Colestid (Colestipol Hcl) 1 Gm Tablet 1 Gm PO TID Pacerone (Amiodarone Hcl) 200 Mg Tablet 200 Mg PO DAILY Lasix (Furosemide) 80 Mg Tablet 1 Tab PO BID Gabapentin 100 Mg Capsule 1 Cap PO TID Aspir 81 (Aspirin) 81 Mg Tablet.dr 1 Tab PO DAILY Coreg (Carvedilol) 6.25 Mg Tablet 1 Tab PO BID K-Tab ER (Potassium Chloride) 20 Meq Tablet.er 20 Meq PO BID Vitals/I & O Vital Sign - Last 24 Hours 08/28/16 08/28/16 08/28/16 08/28/16 14:15 16:19 17:00 17:19 Temp 98.6 98.6 Pulse 66 64 Resp 18 18 18 B/P 92/58 94/50 Pulse Ox 99 95 O2 Delivery Room Air Room Air Room Air 08/28/16 08/28/16 08/28/16 08/29/16 19:20 19:27 23:45 03:40 Temp 98.1 98.0 98.1 98.1 98.0 98.1 Pulse 68 66 71 Resp 24 22 24 B/P 88/50 102/59 98/62 Pulse Ox 94 96 99 O2 Delivery Room Air Room Air Room Air Room Air 08/29/16 08/29/16 08/29/16 07:30 10:20 10:21 Temp 98.0 98.0 Pulse 66 67 67 Resp 20 B/P 97/62 99/57 99/57 Pulse Ox 98 O2 Delivery Room Air Intake and Output 08/28/16 08/28/16 08/29/16 15:00 23:00 07:00 Intake Total 310 ml 500 ml 200 ml Output Total 0 ml Balance 310 ml 500 ml 200 ml MADDIE AMBROSE MD Aug 29, 2016 10:36
[2016-08-29 10:48] VITALS: BP 99/57
--- NOTE | 2016-08-29 10:53 | PDOC ---
IM PROGRESS NOTES- Subjective Subjective no dyspnea,chest pain.Feels better. Objective Vitals Vital Signs Date Time Temp Pulse Resp B/P Pulse Ox O2 Delivery O2 Flow Rate FiO2 08/29/16 10:48 98.6 67 20 99/57 96 Room Air 98.6 Input & Output Intake and Output 08/29/16 07:00 Intake Total 1010 ml Output Total 0 ml Balance 1010 ml Intake Oral 900 ml IV Total 110 ml Output Urine Total 0 ml Physical Exam Physical Exam General appearance - alert,well appearing, and in no distress and oriented to person, place, and time Mental Status - alert, oriented to person, place, and time, affect appropriate to mood Head - normal Chest - clear to auscultation, no wheezes, rales or rhonchi, symmetric air entry Heart - S1 and S2 normal Abdomen - soft, nontender, nondistended, no masses or organomegaly Neurological - alert and oriented,tremors+ Musculoskeletal - no muscular tenderness noted Extremities - trace pedal edema Skin - warm and dry Labs Laboratory Tests Test 08/27/16 17:14 08/27/16 21:09 08/28/16 05:15 08/28/16 07:59 Glucose (Fingerstick) 118mg/dL (70-99) 113mg/dL (70-99) 126mg/dL (70-99) Prothrombin Time 26.3SEC (11.7-14.0) Prothromb Time International Ratio 2.6 (0.8-1.1) Test 08/28/16 16:48 08/28/16 20:48 08/29/16 04:10 08/29/16 07:35 Glucose (Fingerstick) 161mg/dL (70-99) 121mg/dL (70-99) 125mg/dL (70-99) Prothrombin Time 27.6SEC (11.7-14.0) Prothromb Time International Ratio 2.8 (0.8-1.1) Laboratory Tests Test 08/28/16 16:48 08/28/16 20:48 08/29/16 04:10 08/29/16 07:35 Glucose (Fingerstick) 161mg/dL (70-99) 121mg/dL (70-99) 125mg/dL (70-99) Prothrombin Time 27.6SEC (11.7-14.0) Prothromb Time International Ratio 2.8 (0.8-1.1) Meds Current Medications Warfarin Sodium (Coumadin) 2.5 mg 1X WARF ONCE PO ; Start 08/29/16 at 16:00; Stop 08/29/16 at 16:01 Warfarin Sodium (Coumadin) 3 mg 1X WARF ONCE PO Last administered on t 17:15; Start 08/28/16 at 16:00; Stop 08/28/16 at 16:01; Status DC Assessment Assessment New ESRD on dialysis * urinary retention. ac on crf. possible ATN started on dialysis 1. ARF with CKD II ATN SONA ,cr 2.9 no change from yesterday 2. a/c systolic CHF ICM EF 10% AICD 3. HTN 4. DM II with CKD II diet control 5. hyperlipidemia 6. mild to mod MR 7. moderate pulmonary HTN 8. severe weakness and debility 9. metabolic encephalopathy POA 10. moderate chronic PCL malnutrition PLAN: [facility] screen pending.No transfer to [place] this weekend. Improving slowly. INR 2.8. Plan Plan Hyperkalemia- improving. D/w multiple family members. The patient was seen and examined by me. Chart reviewed and plan of care formulated. Discussed with, reviewed and agree with TEAM PRIMARY CARE PHYSICIAN's notes, plan of care and orders with modifications as necessary. For more details regarding further plans, please refer to the orders. MERON DELATORRE MD Aug 29, 2016 10:53
[2016-08-29 15:11] VITALS: BP 92/57
--- NOTE | 2016-08-29 15:20 | PDOC ---
PROGRESS NOTES Subjective Subjective No new complaints. Objective Objective Vital Signs Date Time Temp Pulse Resp B/P Pulse Ox O2 Delivery O2 Flow Rate FiO2 08/29/16 15:11 98.0 65 18 92/57 95 Room Air 98.0 08/26/16 12:59 2.0 Intake and Output 08/29/16 07:00 Intake Total 1010 ml Output Total 0 ml Balance 1010 ml Intake Oral 900 ml IV Total 110 ml Output Urine Total 0 ml Physical Exam Physical Exam No changes in cardiac exam. Assessment Assessment Patient being evaluated for possible transfer to [facility]. I would continue with the dobutamine drip at 3 mics per KG per minute until discharge. Problems Medical Problems: (1) Acute on chronic renal failure Status: Acute Comment Review of Relevant I have reviewed the following items marquise (where applicable) has been applied. Labs Laboratory Tests Test 08/27/16 17:14 08/27/16 21:09 08/28/16 05:15 08/28/16 07:59 Glucose (Fingerstick) 118mg/dL (70-99) 113mg/dL (70-99) 126mg/dL (70-99) Prothrombin Time 26.3SEC (11.7-14.0) Prothromb Time International Ratio 2.6 (0.8-1.1) Test 08/28/16 16:48 08/28/16 20:48 08/29/16 04:10 08/29/16 07:35 Glucose (Fingerstick) 161mg/dL (70-99) 121mg/dL (70-99) 125mg/dL (70-99) Prothrombin Time 27.6SEC (11.7-14.0) Prothromb Time International Ratio 2.8 (0.8-1.1) Test 08/29/16 10:50 Glucose (Fingerstick) 153mg/dL (70-99) Laboratory Tests Test 08/28/16 16:48 08/28/16 20:48 08/29/16 04:10 08/29/16 07:35 Glucose (Fingerstick) 161mg/dL (70-99) 121mg/dL (70-99) 125mg/dL (70-99) Prothrombin Time 27.6SEC (11.7-14.0) Prothromb Time International Ratio 2.8 (0.8-1.1) Test 08/29/16 10:50 Glucose (Fingerstick) 153mg/dL (70-99) Microbiology 08/15/16 Urine Culture - Final, Complete 08/15/16 Urine Culture Result 1 (JV) - Final, Complete 08/15/16 Urine Culture Result 2 (JV) - Final, Complete 08/15/16 Antimicrobic Susceptibility - Final, Complete Medications Current Medications Insulin Aspart (Novolog) 0-5 UNITS TIDWMEALS SQ Last administered on 08/29/16 14:03; Start 08/14/16 at 17:30 Dextrose 12.5 gm 12.5 gm PRN Q15MIN PRN IV SEE COMMENTS; Start 08/14/16 at 16: 45 Sodium Chloride (Iv Sodium Chloride 0.9% 1000ml Bag) 1,000 ml @ 100 mls/hr Q10H IV Last administered on 08/14/16 18:53; Start 08/14/16 at 17:30; Stop 08/15/16 at 03:29; Status DC Amiodarone HCl (Cordarone) 200 mg DAILY PO Last administered on 08/29/16 10:21 ; Start 08/15/16 at 09:00 Aspirin (Ecotrin) 81 mg DAILY PO Last administered on 08/29/16 10:21; Start at 09:00 Atorvastatin Calcium (Lipitor) 40 mg QHS PO Last administered on 08/28/16 21: 07; Start 08/14/16 at 21:00 Carvedilol (Coreg) 6.25 mg BIDWMEALS PO Last administered on 08/29/16 10:20; Start 08/14/16 at 17:30 Colestipol HCl (Colestid) 1 gm TID PO Last administered on 08/17/16 20:55; Start 08/14/16 at 21:00; Stop 08/18/16 at 10:08; Status DC Metoclopramide HCl (Reglan) 5 mg PRN BID PRN PO NAUSEA; Start 08/14/16 at 16:45 ; Stop 08/16/16 at 10:25; Status DC Sacubitril/ Valsartan (Entresto 24 Mg-26 Mg) 1 tab BID PO Last administered on 08/17/16 09:14; Start 08/14/16 at 21:00; Stop 08/17/16 at 10:16; Status DC Warfarin Sodium (Coumadin) 2.5 mg DAILY16 PO Last administered on 08/14/16 18: 50; Start 08/14/16 at 18:00; Stop 08/15/16 at 14:13; Status DC Warfarin Sodium (Coumadin Per Physician) 1 each PRN DAILY PRN MC SEE COMMENTS; Start 08/14/16 at 17:15; Stop 08/15/16 at 09:54; Status DC Sodium Polystyrene Sulfonate (Kayexalate) 60 gm 1X ONCE PO Last administered on 08/14/16 18:51; Start 08/14/16 at 18:30; Stop 08/14/16 at 18:31; Status DC Warfarin Sodium (Coumadin Per Pharmacy) 1 each PRN DAILY PRN MC SEE COMMENTS Last administered on 08/29/16 08:08; Start 08/15/16 at 10:00 Pantoprazole Sodium 40 mg 40 mg DAILYAC PO Last administered on 08/29/16 10:18 ; Start 08/15/16 at 11:30 Dobutamine HCl/ Dextrose 250 ml @ 0 mls/hr CONT PRN IV ; Start 08/15/16 at 14:00 ; Stop 08/15/16 at 14:53; Status DC Albumin Human (Albuminar) 100 ml @ 100 mls/hr 1X ONCE IV Last administered on 08/15/16 15:25; Start 08/15/16 at 14:00; Stop 08/15/16 at 14:59; Status DC Furosemide 40 mg 40 mg 1X ONCE IVP Last administered on 08/15/16 16:22; Start 08/15/16 at 15:00; Stop 08/15/16 at 15:01; Status DC Albumin Human (Albuminar) 100 ml @ 100 mls/hr 1X ONCE IV Last administered on 08/16/16 08:41; Start 08/16/16 at 09:00; Stop 08/16/16 at 09:59; Status DC Furosemide (Lasix) 40 mg 1X ONCE IVP Last administered on 08/16/16 09:45; Start 08/16/16 at 10:00; Stop 08/16/16 at 10:01; Status DC Warfarin Sodium 4 mg 4 mg 1X WARF ONCE PO Last administered on 08/15/16 16:33 ; Start 08/15/16 at 16:00; Stop 08/15/16 at 16:01; Status DC Dobutamine HCl/ Dextrose 250 ml @ 0 mls/hr CONT PRN PRN IV SEE I/O RECORD Last administered on 08/27/16 07:02; Start 08/15/16 at 14:53 Sodium Bicarbonate 50 meq 50 meq Q2HR IV Last administered on 08/15/16 18:20; Start 08/15/16 at 16:00; Stop 08/15/16 at 18:30; Status DC Magnesium Sulfate/ Dextrose (Magnesium Sulfate PREMIX 2GM) 50 ml @ 25 mls/hr PRN DAILY PRN IV for Mag < 1.7 on am labs; Start 08/15/16 at 15:30 Warfarin Sodium (Coumadin) 4 mg 1X WARF ONCE PO Last administered on 08/16/16 17:28; Start 08/16/16 at 16:00; Stop 08/16/16 at 16:01; Status DC Ondansetron HCl 4 mg 4 mg PRN Q6HRS PRN IV nausea Last administered on 00:53; Start 08/16/16 at 20:30 Ceftriaxone Sodium 1 gm/ Sodium Chloride 50 ml @ 100 mls/hr Q24H IV Last administered on 08/19/16 10:00; Start 08/17/16 at 10:00; Stop 08/19/16 at 12:56; Status DC Sodium Chloride (Iv Sodium Chloride 0.9% 1000ml Bag) 1,000 ml @ 75 mls/hr [id number] IV Last administered on 08/19/16 16:58; Start 08/17/16 at 10:15; Stop at 09:27; Status DC Warfarin Sodium (Coumadin) 5 mg 1X WARF ONCE PO ; Start 08/17/16 at 16:00; Stop 08/17/16 at 16:01; Status DC Heparin Sodium/ Sodium Chloride 1,000 unit 1X ONCE IART Last administered on 11:45; Start 08/18/16 at 11:30; Stop 08/18/16 at 11:31; Status DC Midazolam HCl (Versed) 2 mg 1X ONCE IV Last administered on 08/18/16 11:46; Start 08/18/16 at 11:30; Stop 08/18/16 at 11:31; Status DC Fentanyl Citrate (Fentanyl 2ml Vial) 100 mcg 1X ONCE IV Last administered on 11:47; Start 08/18/16 at 11:30; Stop 08/18/16 at 11:31; Status DC Lidocaine/ Epinephrine 15 ml 15 ml 1X ONCE IJ Last administered on 08/18/16 11 :44; Start 08/18/16 at 11:30; Stop 08/18/16 at 11:31; Status DC Vancomycin HCl 250 ml @ 250 mls/hr 1X ONCE IRR Last administered on 08/18/16 11:45; Start 08/18/16 at 11:30; Stop 08/18/16 at 12:29; Status DC Heparin Sodium (Porcine) (Hep Lock Adult) 500 unit 1X ONCE IV Last administered on 08/18/16 11:46; Start 08/18/16 at 11:30; Stop 08/18/16 at 11:31; Status DC Heparin Sodium (Porcine) (Hep Lock Adult) 500 unit STK-MED ONCE IV ; Start at 09:29; Stop 08/18/16 at 11:42; Status DC Lidocaine/ Epinephrine 20 ml 20 ml STK-MED ONCE .ROUTE ; Start 08/18/16 at 09:29 ; Stop 08/18/16 at 11:42; Status DC Heparin Sodium/ Sodium Chloride 500 ml @ As Directed STK-MED ONCE .ROUTE ; Start 08/18/16 at 09:29; Stop 08/18/16 at 11:42; Status DC Vancomycin HCl 250 ml @ As Directed STK-MED ONCE .ROUTE ; Start 08/18/16 at 09: 29; Stop 08/18/16 at 11:42; Status DC Fentanyl Citrate (Fentanyl 2ml Vial) 100 mcg STK-MED ONCE .ROUTE ; Start at 10:29; Stop 08/18/16 at 11:43; Status DC Midazolam HCl 2 mg 2 mg STK-MED ONCE .ROUTE ; Start 08/18/16 at 10:30; Stop at 11:43; Status DC Iron Sucrose/ Sodium Chloride (Venofer/Iv Sodium Chloride 0.9% 100ml) 110 ml @ 55 mls/hr 3X/WEEK IV Last administered on 08/28/16 09:10; Start 08/19/16 at 09: 00; Stop 08/28/16 at 10:59; Status DC Warfarin Sodium (Coumadin) 5 mg 1X WARF ONCE PO Last administered on 08/18/16 17:56; Start 08/18/16 at 16:00; Stop 08/18/16 at 16:01; Status DC Warfarin Sodium (Coumadin) 3 mg 1X WARF ONCE PO ; Start 08/19/16 at 16:00; Stop 08/19/16 at 16:01; Status Cancel Cefpodoxime Proxetil (Vantin) 100 mg BID PO Last administered on 08/26/16 20: 40; Start 08/19/16 at 21:00; Stop 08/26/16 at 21:01; Status DC Warfarin Sodium (Coumadin) 2.5 mg 1X WARF ONCE PO Last administered on 16:59; Start 08/19/16 at 16:00; Stop 08/19/16 at 16:01; Status DC Senna/Docusate Sodium 1 tab 1 tab PRN BID PRN PO CONSTIPATION Last administered on 08/20/16 14:18; Start 08/19/16 at 13:30; Stop 08/20/16 at 14:43; Status DC Sodium Chloride 250 ml @ 0 mls/hr 1X ONCE IV Last administered on 08/19/16 14: 33; Start 08/19/16 at 13:45; Stop 08/19/16 at 13:53; Status DC Sodium Chloride (Iv Sodium Chloride 0.9% 500ml Bag) 500 ml @ 0 mls/hr 1X ONCE IV Last administered on 08/19/16 16:58; Start 08/19/16 at 16:00; Stop 08/19/16 at 16:01; Status DC Senna/Docusate Sodium (Senna Plus) 1 tab PRN BID PRN PO CONSTIPATION Last administered on 08/28/16 16:20; Start 08/20/16 at 10:00 Bisacodyl (Dulcolax Supp) 10 mg 1X ONCE DC ; Start 08/20/16 at 11:00; Stop at 11:00; Status DC Bisacodyl (Dulcolax Supp) 10 mg 1X ONCE DC Last administered on 08/20/16 16:49 ; Start 08/20/16 at 14:30; Stop 08/20/16 at 14:31; Status DC Warfarin Sodium (Coumadin) 2 mg 1X WARF ONCE PO Last administered on 08/20/16 16:48; Start 08/20/16 at 16:00; Stop 08/20/16 at 16:01; Status DC Mineral Oil (Fleet Mineral Oil) 133 ml 1X ONCE DC ; Start 08/21/16 at 20:00; Stop 08/21/16 at 20:00; Status DC Non-Formulary Medication 1 ea Q4H PO Last administered on 08/21/16 16:18; Start 08/21/16 at 12:00; Stop 08/21/16 at 16:01; Status DC Sodium Bicarbonate 50 meq Q6H IV Last administered on 08/21/16 20:16; Start 08/21/16 at 14:00; Stop 08/21/16 at 20:01; Status DC Warfarin Sodium (Coumadin) 3 mg 1X WARF ONCE PO Last administered on 08/21/16 16:16; Start 08/21/16 at 16:00; Stop 08/21/16 at 16:01; Status DC Warfarin Sodium (Coumadin) 2.5 mg 1X WARF ONCE PO Last administered on 16:00; Start 08/22/16 at 16:00; Stop 08/22/16 at 16:01; Status DC Warfarin Sodium (Coumadin) 3 mg 1X WARF ONCE PO Last administered on 08/23/16 18:28; Start 08/23/16 at 16:00; Stop 08/23/16 at 16:01; Status DC Lidocaine/ Epinephrine (Xylocaine 2%-Epi 1:100,000) 20 ml STK-MED ONCE .ROUTE ; Start 08/24/16 at 10:54; Stop 08/24/16 at 10:55; Status DC Heparin Sodium (Porcine) 72169 unit 10,000 unit STK-MED ONCE .ROUTE ; Start 03/02 at 10:54; Stop 08/24/16 at 10:55; Status DC Heparin Sodium/ Sodium Chloride 500 ml @ As Directed STK-MED ONCE .ROUTE ; Start 08/24/16 at 10:54; Stop 08/24/16 at 10:55; Status DC Darbepoetin Dino (Aranesp) 60 mcg WEEKLYHS SQ Last administered on 08/24/16 20 :59; Start 08/24/16 at 21:00 Fentanyl Citrate (Fentanyl 2ml Vial) 100 mcg STK-MED ONCE .ROUTE ; Start at 11:26; Stop 08/24/16 at 11:27; Status DC Midazolam HCl 2 mg 2 mg STK-MED ONCE .ROUTE ; Start 08/24/16 at 11:26; Stop 03/02 at 11:27; Status DC Cefazolin Sodium (Ancef 1gm Ivpb For Omni) 0 ml @ As Directed STK-MED ONCE IV ; Start 08/24/16 at 11:26; Stop 08/24/16 at 11:27; Status DC Heparin Sodium/ Sodium Chloride 1,000 unit 1X ONCE IART Last administered on 12:23; Start 08/24/16 at 11:45; Stop 08/24/16 at 11:46; Status DC Lidocaine/ Epinephrine (Xylocaine 2%-Epi 1:100,000) 20 ml 1X ONCE IJ Last administered on 08/24/16 12:23; Start 08/24/16 at 11:45; Stop 08/24/16 at 11:46 ; Status DC Fentanyl Citrate (Fentanyl 2ml Vial) 100 mcg STK-MED ONCE .ROUTE ; Start at 11:58; Stop 08/24/16 at 11:59; Status DC Midazolam HCl (Versed) 2 mg STK-MED ONCE .ROUTE ; Start 08/24/16 at 11:58; Stop 08/24/16 at 11:59; Status DC Heparin Sodium (Porcine) (Heparin Sodium) 4,300 unit 1X ONCE IV Last administered on 08/24/16 12:15; Start 08/24/16 at 12:15; Stop 08/24/16 at 12:21 ; Status DC Midazolam HCl (Versed) 2 mg 1X ONCE IV Last administered on 08/24/16 12:30; Start 08/24/16 at 12:30; Stop 08/24/16 at 12:31; Status DC Fentanyl Citrate 100 mcg 100 mcg 1X ONCE IV Last administered on 08/24/16 12: 30; Start 08/24/16 at 12:30; Stop 08/24/16 at 12:31; Status DC Cefazolin Sodium (Ancef 1gm Ivpb For Omni) 50 ml @ 100 mls/hr 1X ONCE IV Last administered on 08/24/16 12:29; Start 08/24/16 at 12:30; Stop 08/24/16 at 12:59; Status DC Warfarin Sodium (Coumadin) 4 mg 1X WARF ONCE PO Last administered on 18:08; Start 08/24/16 at 16:00; Stop 08/24/16 at 16:01; Status DC Mineral Oil (Fleet Mineral Oil) 133 ml PRN DAILY PRN DC CONSTIPATION; Start 03/02 at 19:30 Info (PHARMACY MONITORING -- do not chart) 1 each PRN DAILY PRN MC SEE COMMENTS ; Start 08/25/16 at 12:45; Stop 08/27/16 at 13:18; Status DC Info (PHARMACY MONITORING -- do not chart) 1 each PRN DAILY PRN MC SEE COMMENTS ; Start 08/25/16 at 12:45; Stop 08/27/16 at 13:18; Status DC Warfarin Sodium (Coumadin) 4 mg 1X WARF ONCE PO Last administered on 16:11; Start 08/25/16 at 16:00; Stop 08/25/16 at 16:01; Status DC Tramadol HCl (Ultram) 50 mg PRN TID PRN PO PAIN Last administered on 08/28/16 16:19; Start 08/25/16 at 15:45 Info (PHARMACY MONITORING -- do not chart) 1 each PRN DAILY PRN MC SEE COMMENTS ; Start 08/26/16 at 06:45; Stop 08/27/16 at 13:18; Status DC Warfarin Sodium (Coumadin) 4 mg 1X WARF ONCE PO Last administered on 17:13; Start 08/26/16 at 16:00; Stop 08/26/16 at 16:01; Status DC Info (PHARMACY MONITORING -- do not chart) 1 each PRN DAILY PRN MC SEE COMMENTS ; Start 08/27/16 at 08:00; Status UNV Info (PHARMACY MONITORING -- do not chart) 1 each PRN DAILY PRN MC SEE COMMENTS ; Start 08/27/16 at 08:00 Warfarin Sodium (Coumadin) 4 mg 1X WARF ONCE PO Last administered on 18:32; Start 08/27/16 at 16:00; Stop 08/27/16 at 16:01; Status DC Warfarin Sodium 3 mg 3 mg 1X WARF ONCE PO Last administered on 08/28/16t 17:15 ; Start 08/28/16 at 16:00; Stop 08/28/16 at 16:01; Status DC Sodium Chloride (Iv Sodium Chloride 0.9% 1000ml Bag) 1,000 ml @ 1,000 mls/hr Q1H PRN IV hypotension; Start 08/28/16 at 10:42; Stop 08/28/16 at 16:41; Status DC Sodium Chloride (Normal Saline Flush) 10 ml 1X PRN PRN IV AP catheter pack; Start 08/28/16 at 10:45; Stop 08/29/16 at 10:44; Status DC Sodium Chloride (Normal Saline Flush) 10 ml 1X PRN PRN IV [employer] catheter pack; Start 08/28/16 at 10:45; Stop 08/29/16 at 10:44; Status DC Info (PHARMACY MONITORING -- do not chart) 1 each PRN DAILY PRN MC SEE COMMENTS ; Start 08/28/16 at 10:45; Status UNV Info (PHARMACY MONITORING -- do not chart) 1 each PRN DAILY PRN MC SEE COMMENTS ; Start 08/28/16 at 10:45; Status UNV Warfarin Sodium (Coumadin) 2.5 mg 1X WARF ONCE PO ; Start 08/29/16 at 16:00; Stop 08/29/16 at 16:01 Active Scripts Active Entresto 24 mg-26 mg Tablet (Sacubitril/Valsartan) 1 Each Tablet 1 Tab PO BID Coumadin (Warfarin Sodium) 2.5 Mg Tablet 2.5 Mg PO DAILY16 Reported Reglan (Metoclopramide Hcl) 10 Mg Tablet 5 Mg PO PRN BID PRN Atorvastatin Calcium 40 Mg Tablet 1 Tab PO DAILY Colestid (Colestipol Hcl) 1 Gm Tablet 1 Gm PO TID Pacerone (Amiodarone Hcl) 200 Mg Tablet 200 Mg PO DAILY Lasix (Furosemide) 80 Mg Tablet 1 Tab PO BID Gabapentin 100 Mg Capsule 1 Cap PO TID Aspir 81 (Aspirin) 81 Mg Tablet.dr 1 Tab PO DAILY Coreg (Carvedilol) 6.25 Mg Tablet 1 Tab PO BID K-Tab ER (Potassium Chloride) 20 Meq Tablet.er 20 Meq PO BID Vitals/I & O Vital Sign - Last 24 Hours 08/28/16 08/28/16 08/28/16 08/28/16 16:19 17:00 17:19 19:20 Temp 98.1 98.1 Pulse 64 68 Resp 18 18 24 B/P 94/50 88/50 Pulse Ox 95 94 O2 Delivery Room Air Room Air Room Air 08/28/16 08/28/16 08/29/16 08/29/16 19:27 23:45 03:40 07:30 Temp 98.0 98.1 98.0 98.0 98.1 98.0 Pulse 66 71 66 Resp 22 24 20 B/P 102/59 98/62 97/62 Pulse Ox 96 99 98 O2 Delivery Room Air Room Air Room Air Room Air 08/29/16 08/29/16 08/29/16 08/29/16 08:00 10:20 10:21 10:48 Temp 98.6 98.6 Pulse 67 67 67 Resp 20 B/P 99/57 99/57 99/57 Pulse Ox 96 O2 Delivery Room Air Room Air 08/29/16 15:11 Temp 98.0 98.0 Pulse 65 Resp 18 B/P 92/57 Pulse Ox 95 O2 Delivery Room Air Intake and Output 08/28/16 08/28/16 08/29/16 15:00 23:00 07:00 Intake Total 310 ml 500 ml 200 ml Output Total 0 ml Balance 310 ml 500 ml 200 ml HEATHER CHERRY MD Aug 29, 2016 15:20
[2016-08-29] MEDS ORDERED: WARFARIN 2.5 MG TABLET. PO ONE (16:00)
[2016-08-29 19:30] VITALS: BP 84/45
[2016-08-29] MEDS: ATORVASTATIN CALCIUM 40 MG TABLET. PO SCH (19:54)
[2016-08-29] MEDS: TRAMADOL 50 MG TABLET. PO PRN (19:58)
[2016-08-29 23:28] VITALS: BP 97/50
[2016-08-30] MEDS: PANTOPRAZOLE 40 MG TABLET.DR. PO SCH ×2 (02:46→10:21)
[2016-08-30 02:47] VITALS: BP 106/60
[2016-08-30 05:20] LABS: PROTHROMBIN TIME PATIENT 29.5 SEC (11.7-14.0)
[2016-08-30 07:36] VITALS: BP 105/65
[2016-08-30] MEDS: INSULIN ASPART 300 UNITS/3 ML INSULN.PEN SQ SCH ×3 (08:00→17:00)
[2016-08-30 10:07] VITALS: BP 100/57
--- NOTE | 2016-08-30 10:10 | PDOC ---
IM PROGRESS NOTES- Subjective Subjective no dyspnea,chest pain.Feels better. Objective Vitals Vital Signs Date Time Temp Pulse Resp B/P Pulse Ox O2 Delivery O2 Flow Rate FiO2 08/30/16 10:07 98.1 66 20 100/57 97 Room Air 98.1 08/30/16 08:00 2.0 Input & Output Intake and Output 08/30/16 07:00 Intake Total 329 ml Output Total 0 ml Balance 329 ml Intake Oral 270 ml IV Total 59 ml Output Urine Total 0 ml # Voids 1 # Bowel Movements 1 Physical Exam Physical Exam General appearance - alert,well appearing, and in no distress and oriented to person, place, and time Mental Status - alert, oriented to person, place, and time, affect appropriate to mood Head - normal Chest - clear to auscultation, no wheezes, rales or rhonchi, symmetric air entry Heart - S1 and S2 normal Abdomen - soft, nontender, nondistended, no masses or organomegaly Neurological - alert and oriented,tremors+ Musculoskeletal - no muscular tenderness noted Extremities - 1-2+ pedal edema Skin - warm and dry Labs Laboratory Tests Test 08/28/16 16:48 08/28/16 20:48 08/29/16 04:10 08/29/16 07:35 Glucose (Fingerstick) 161mg/dL (70-99) 121mg/dL (70-99) 125mg/dL (70-99) Prothrombin Time 27.6SEC (11.7-14.0) Prothromb Time International Ratio 2.8 (0.8-1.1) Test 08/29/16 10:50 08/29/16 17:04 08/29/16 20:56 08/30/16 05:00 Glucose (Fingerstick) 153mg/dL (70-99) 120mg/dL (70-99) 122mg/dL (70-99) Prothrombin Time 29.5SEC (11.7-14.0) Prothromb Time International Ratio 3.0 (0.8-1.1) Test 08/30/16 07:40 Glucose (Fingerstick) 115mg/dL (70-99) Laboratory Tests Test 08/29/16 10:50 08/29/16 17:04 08/29/16 20:56 08/30/16 05:00 Glucose (Fingerstick) 153mg/dL (70-99) 120mg/dL (70-99) 122mg/dL (70-99) Prothrombin Time 29.5SEC (11.7-14.0) Prothromb Time International Ratio 3.0 (0.8-1.1) Test 08/30/16 07:40 Glucose (Fingerstick) 115mg/dL (70-99) Meds Current Medications Warfarin Sodium (Coumadin) 2 mg 1X WARF ONCE PO ; Start 08/30/16 at 16:00; Stop 08/30/16 at 16:01 Warfarin Sodium (Coumadin) 2.5 mg 1X WARF ONCE PO Last administered on t 17:00; Start 08/29/16 at 16:00; Stop 08/29/16 at 16:01; Status DC Assessment Assessment New ESRD on dialysis * urinary retention. ac on crf. possible ATN started on dialysis 1. ARF with CKD II ATN SONA on HD 2. a/c systolic CHF ICM EF 10% AICD 3. HTN 4. DM II with CKD II diet control 5. hyperlipidemia 6. mild to mod MR 7. moderate pulmonary HTN 8. severe weakness and debility 9. metabolic encephalopathy POA 10. moderate chronic PCL malnutrition PLAN: [facility] screen pending.No transfer to [place] this weekend. Improving slowly. INR 3. Adjust coumadin. Plan Plan Hyperkalemia- improving. D/w multiple family members. The patient was seen and examined by me. Chart reviewed and plan of care formulated. Discussed with, reviewed and agree with YOUTH COUNSELOR's notes, plan of care and orders with modifications as necessary. For more details regarding further plans, please refer to the orders. MERON DELATORRE MD Aug 30, 2016 10:10
[2016-08-30] MEDS: ASPIRIN ENTERIC COATED 81 MG TABLET.DR. PO SCH (10:20)
[2016-08-30] MEDS: AMIODARONE HCL 200 MG TABLET. PO SCH (10:23)
[2016-08-30] MEDS: CARVEDILOL 6.25 MG TABLET. PO SCH ×2 (10:23→17:58)
[2016-08-30 14:31] VITALS: BP 97/58
--- NOTE | 2016-08-30 15:57 | PDOC ---
PROGRESS NOTES Subjective Subjective The patient feels better today. Awaiting for the transfer to [facility] to be arranged Objective Objective Vital Signs Date Time Temp Pulse Resp B/P Pulse Ox O2 Delivery O2 Flow Rate FiO2 08/30/16 14:31 97.6 63 18 97/58 96 Room Air 97.6 08/30/16 08:00 2.0 Intake and Output 08/30/16 07:00 Intake Total 329 ml Output Total 0 ml Balance 329 ml Intake Oral 270 ml IV Total 59 ml Output Urine Total 0 ml # Voids 1 # Bowel Movements 1 Physical Exam Physical Exam No significant changes in cardiac exam Assessment Assessment Patient seems to be stable on the current dobutamine drip dose. I agree with present plan. Problems Medical Problems: (1) Acute on chronic renal failure Status: Acute Comment Review of Relevant I have reviewed the following items marquise (where applicable) has been applied. Labs Laboratory Tests Test 08/28/16 16:48 08/28/16 20:48 08/29/16 04:10 08/29/16 07:35 Glucose (Fingerstick) 161mg/dL (70-99) 121mg/dL (70-99) 125mg/dL (70-99) Prothrombin Time 27.6SEC (11.7-14.0) Prothromb Time International Ratio 2.8 (0.8-1.1) Test 08/29/16 10:50 08/29/16 17:04 08/29/16 20:56 08/30/16 05:00 Glucose (Fingerstick) 153mg/dL (70-99) 120mg/dL (70-99) 122mg/dL (70-99) Prothrombin Time 29.5SEC (11.7-14.0) Prothromb Time International Ratio 3.0 (0.8-1.1) Test 08/30/16 07:40 08/30/16 10:34 Glucose (Fingerstick) 115mg/dL (70-99) 151mg/dL (70-99) Laboratory Tests Test 08/29/16 17:04 08/29/16 20:56 08/30/16 05:00 08/30/16 07:40 Glucose (Fingerstick) 120mg/dL (70-99) 122mg/dL (70-99) 115mg/dL (70-99) Prothrombin Time 29.5SEC (11.7-14.0) Prothromb Time International Ratio 3.0 (0.8-1.1) Test 08/30/16 10:34 Glucose (Fingerstick) 151mg/dL (70-99) Microbiology 08/15/16 Urine Culture - Final, Complete 08/15/16 Urine Culture Result 1 (JV) - Final, Complete 08/15/16 Urine Culture Result 2 (JV) - Final, Complete 08/15/16 Antimicrobic Susceptibility - Final, Complete Medications Current Medications Insulin Aspart (Novolog) 0-5 UNITS TIDWMEALS SQ Last administered on 08/30/16 12:00; Start 08/14/16 at 17:30 Dextrose 12.5 gm 12.5 gm PRN Q15MIN PRN IV SEE COMMENTS; Start 08/14/16 at 16: 45 Sodium Chloride (Iv Sodium Chloride 0.9% 1000ml Bag) 1,000 ml @ 100 mls/hr Q10H IV Last administered on 08/14/16 18:53; Start 08/14/16 at 17:30; Stop 08/15/16 at 03:29; Status DC Amiodarone HCl (Cordarone) 200 mg DAILY PO Last administered on 08/30/16 10:23 ; Start 08/15/16 at 09:00 Aspirin (Ecotrin) 81 mg DAILY PO Last administered on 08/30/16 10:20; Start at 09:00 Atorvastatin Calcium (Lipitor) 40 mg QHS PO Last administered on 08/29/16 19: 54; Start 08/14/16 at 21:00 Carvedilol (Coreg) 6.25 mg BIDWMEALS PO Last administered on 08/30/16 10:23; Start 08/14/16 at 17:30 Colestipol HCl (Colestid) 1 gm TID PO Last administered on 08/17/16 20:55; Start 08/14/16 at 21:00; Stop 08/18/16 at 10:08; Status DC Metoclopramide HCl (Reglan) 5 mg PRN BID PRN PO NAUSEA; Start 08/14/16 at 16:45 ; Stop 08/16/16 at 10:25; Status DC Sacubitril/ Valsartan (Entresto 24 Mg-26 Mg) 1 tab BID PO Last administered on 08/17/16 09:14; Start 08/14/16 at 21:00; Stop 08/17/16 at 10:16; Status DC Warfarin Sodium (Coumadin) 2.5 mg DAILY16 PO Last administered on 08/14/16 18: 50; Start 08/14/16 at 18:00; Stop 08/15/16 at 14:13; Status DC Warfarin Sodium (Coumadin Per Physician) 1 each PRN DAILY PRN MC SEE COMMENTS; Start 08/14/16 at 17:15; Stop 08/15/16 at 09:54; Status DC Sodium Polystyrene Sulfonate (Kayexalate) 60 gm 1X ONCE PO Last administered on 08/14/16 18:51; Start 08/14/16 at 18:30; Stop 08/14/16 at 18:31; Status DC Warfarin Sodium (Coumadin Per Pharmacy) 1 each PRN DAILY PRN MC SEE COMMENTS Last administered on 08/30/16 07:52; Start 08/15/16 at 10:00 Pantoprazole Sodium 40 mg 40 mg DAILYAC PO Last administered on 08/30/16 10:21 ; Start 08/15/16 at 11:30 Dobutamine HCl/ Dextrose 250 ml @ 0 mls/hr CONT PRN IV ; Start 08/15/16 at 14:00 ; Stop 08/15/16 at 14:53; Status DC Albumin Human (Albuminar) 100 ml @ 100 mls/hr 1X ONCE IV Last administered on 08/15/16 15:25; Start 08/15/16 at 14:00; Stop 08/15/16 at 14:59; Status DC Furosemide 40 mg 40 mg 1X ONCE IVP Last administered on 08/15/16 16:22; Start 08/15/16 at 15:00; Stop 08/15/16 at 15:01; Status DC Albumin Human (Albuminar) 100 ml @ 100 mls/hr 1X ONCE IV Last administered on 08/16/16 08:41; Start 08/16/16 at 09:00; Stop 08/16/16 at 09:59; Status DC Furosemide (Lasix) 40 mg 1X ONCE IVP Last administered on 08/16/16 09:45; Start 08/16/16 at 10:00; Stop 08/16/16 at 10:01; Status DC Warfarin Sodium 4 mg 4 mg 1X WARF ONCE PO Last administered on 08/15/16 16:33 ; Start 08/15/16 at 16:00; Stop 08/15/16 at 16:01; Status DC Dobutamine HCl/ Dextrose 250 ml @ 0 mls/hr CONT PRN PRN IV SEE I/O RECORD Last administered on 08/30/16 02:39; Start 08/15/16 at 14:53 Sodium Bicarbonate 50 meq 50 meq Q2HR IV Last administered on 08/15/16 18:20; Start 08/15/16 at 16:00; Stop 08/15/16 at 18:30; Status DC Magnesium Sulfate/ Dextrose (Magnesium Sulfate PREMIX 2GM) 50 ml @ 25 mls/hr PRN DAILY PRN IV for Mag < 1.7 on am labs; Start 08/15/16 at 15:30 Warfarin Sodium (Coumadin) 4 mg 1X WARF ONCE PO Last administered on 08/16/16 17:28; Start 08/16/16 at 16:00; Stop 08/16/16 at 16:01; Status DC Ondansetron HCl 4 mg 4 mg PRN Q6HRS PRN IV nausea Last administered on 00:53; Start 08/16/16 at 20:30 Ceftriaxone Sodium 1 gm/ Sodium Chloride 50 ml @ 100 mls/hr Q24H IV Last administered on 08/19/16 10:00; Start 08/17/16 at 10:00; Stop 08/19/16 at 12:56; Status DC Sodium Chloride (Iv Sodium Chloride 0.9% 1000ml Bag) 1,000 ml @ 75 mls/hr [id number] IV Last administered on 08/19/16 16:58; Start 08/17/16 at 10:15; Stop at 09:27; Status DC Warfarin Sodium (Coumadin) 5 mg 1X WARF ONCE PO ; Start 08/17/16 at 16:00; Stop 08/17/16 at 16:01; Status DC Heparin Sodium/ Sodium Chloride 1,000 unit 1X ONCE IART Last administered on 11:45; Start 08/18/16 at 11:30; Stop 08/18/16 at 11:31; Status DC Midazolam HCl (Versed) 2 mg 1X ONCE IV Last administered on 08/18/16 11:46; Start 08/18/16 at 11:30; Stop 08/18/16 at 11:31; Status DC Fentanyl Citrate (Fentanyl 2ml Vial) 100 mcg 1X ONCE IV Last administered on 11:47; Start 08/18/16 at 11:30; Stop 08/18/16 at 11:31; Status DC Lidocaine/ Epinephrine 15 ml 15 ml 1X ONCE IJ Last administered on 08/18/16 11 :44; Start 08/18/16 at 11:30; Stop 08/18/16 at 11:31; Status DC Vancomycin HCl 250 ml @ 250 mls/hr 1X ONCE IRR Last administered on 08/18/16 11:45; Start 08/18/16 at 11:30; Stop 08/18/16 at 12:29; Status DC Heparin Sodium (Porcine) (Hep Lock Adult) 500 unit 1X ONCE IV Last administered on 08/18/16 11:46; Start 08/18/16 at 11:30; Stop 08/18/16 at 11:31; Status DC Heparin Sodium (Porcine) (Hep Lock Adult) 500 unit STK-MED ONCE IV ; Start at 09:29; Stop 08/18/16 at 11:42; Status DC Lidocaine/ Epinephrine 20 ml 20 ml STK-MED ONCE .ROUTE ; Start 08/18/16 at 09:29 ; Stop 08/18/16 at 11:42; Status DC Heparin Sodium/ Sodium Chloride 500 ml @ As Directed STK-MED ONCE .ROUTE ; Start 08/18/16 at 09:29; Stop 08/18/16 at 11:42; Status DC Vancomycin HCl 250 ml @ As Directed STK-MED ONCE .ROUTE ; Start 08/18/16 at 09: 29; Stop 08/18/16 at 11:42; Status DC Fentanyl Citrate (Fentanyl 2ml Vial) 100 mcg STK-MED ONCE .ROUTE ; Start at 10:29; Stop 08/18/16 at 11:43; Status DC Midazolam HCl 2 mg 2 mg STK-MED ONCE .ROUTE ; Start 08/18/16 at 10:30; Stop at 11:43; Status DC Iron Sucrose/ Sodium Chloride (Venofer/Iv Sodium Chloride 0.9% 100ml) 110 ml @ 55 mls/hr 3X/WEEK IV Last administered on 08/28/16 09:10; Start 08/19/16 at 09: 00; Stop 08/28/16 at 10:59; Status DC Warfarin Sodium (Coumadin) 5 mg 1X WARF ONCE PO Last administered on 08/18/16 17:56; Start 08/18/16 at 16:00; Stop 08/18/16 at 16:01; Status DC Warfarin Sodium (Coumadin) 3 mg 1X WARF ONCE PO ; Start 08/19/16 at 16:00; Stop 08/19/16 at 16:01; Status Cancel Cefpodoxime Proxetil (Vantin) 100 mg BID PO Last administered on 08/26/16 20: 40; Start 08/19/16 at 21:00; Stop 08/26/16 at 21:01; Status DC Warfarin Sodium (Coumadin) 2.5 mg 1X WARF ONCE PO Last administered on 16:59; Start 08/19/16 at 16:00; Stop 08/19/16 at 16:01; Status DC Senna/Docusate Sodium 1 tab 1 tab PRN BID PRN PO CONSTIPATION Last administered on 08/20/16 14:18; Start 08/19/16 at 13:30; Stop 08/20/16 at 14:43; Status DC Sodium Chloride 250 ml @ 0 mls/hr 1X ONCE IV Last administered on 08/19/16 14: 33; Start 08/19/16 at 13:45; Stop 08/19/16 at 13:53; Status DC Sodium Chloride (Iv Sodium Chloride 0.9% 500ml Bag) 500 ml @ 0 mls/hr 1X ONCE IV Last administered on 08/19/16 16:58; Start 08/19/16 at 16:00; Stop 08/19/16 at 16:01; Status DC Senna/Docusate Sodium (Senna Plus) 1 tab PRN BID PRN PO CONSTIPATION Last administered on 08/28/16 16:20; Start 08/20/16 at 10:00 Bisacodyl (Dulcolax Supp) 10 mg 1X ONCE NC ; Start 08/20/16 at 11:00; Stop at 11:00; Status DC Bisacodyl (Dulcolax Supp) 10 mg 1X ONCE NC Last administered on 08/20/16 16:49 ; Start 08/20/16 at 14:30; Stop 08/20/16 at 14:31; Status DC Warfarin Sodium (Coumadin) 2 mg 1X WARF ONCE PO Last administered on 08/20/16 16:48; Start 08/20/16 at 16:00; Stop 08/20/16 at 16:01; Status DC Mineral Oil (Fleet Mineral Oil) 133 ml 1X ONCE NC ; Start 08/21/16 at 20:00; Stop 08/21/16 at 20:00; Status DC Non-Formulary Medication 1 ea Q4H PO Last administered on 08/21/16 16:18; Start 08/21/16 at 12:00; Stop 08/21/16 at 16:01; Status DC Sodium Bicarbonate 50 meq Q6H IV Last administered on 08/21/16 20:16; Start 08/21/16 at 14:00; Stop 08/21/16 at 20:01; Status DC Warfarin Sodium (Coumadin) 3 mg 1X WARF ONCE PO Last administered on 08/21/16 16:16; Start 08/21/16 at 16:00; Stop 08/21/16 at 16:01; Status DC Warfarin Sodium (Coumadin) 2.5 mg 1X WARF ONCE PO Last administered on 16:00; Start 08/22/16 at 16:00; Stop 08/22/16 at 16:01; Status DC Warfarin Sodium (Coumadin) 3 mg 1X WARF ONCE PO Last administered on 08/23/16 18:28; Start 08/23/16 at 16:00; Stop 08/23/16 at 16:01; Status DC Lidocaine/ Epinephrine (Xylocaine 2%-Epi 1:100,000) 20 ml STK-MED ONCE .ROUTE ; Start 08/24/16 at 10:54; Stop 08/24/16 at 10:55; Status DC Heparin Sodium (Porcine) 66006 unit 10,000 unit STK-MED ONCE .ROUTE ; Start 03/02 at 10:54; Stop 08/24/16 at 10:55; Status DC Heparin Sodium/ Sodium Chloride 500 ml @ As Directed STK-MED ONCE .ROUTE ; Start 08/24/16 at 10:54; Stop 08/24/16 at 10:55; Status DC Darbepoetin Dino (Aranesp) 60 mcg WEEKLYHS SQ Last administered on 08/24/16 20 :59; Start 08/24/16 at 21:00 Fentanyl Citrate (Fentanyl 2ml Vial) 100 mcg STK-MED ONCE .ROUTE ; Start at 11:26; Stop 08/24/16 at 11:27; Status DC Midazolam HCl 2 mg 2 mg STK-MED ONCE .ROUTE ; Start 08/24/16 at 11:26; Stop 03/02 at 11:27; Status DC Cefazolin Sodium (Ancef 1gm Ivpb For Omni) 0 ml @ As Directed STK-MED ONCE IV ; Start 08/24/16 at 11:26; Stop 08/24/16 at 11:27; Status DC Heparin Sodium/ Sodium Chloride 1,000 unit 1X ONCE IART Last administered on 12:23; Start 08/24/16 at 11:45; Stop 08/24/16 at 11:46; Status DC Lidocaine/ Epinephrine (Xylocaine 2%-Epi 1:100,000) 20 ml 1X ONCE IJ Last administered on 08/24/16 12:23; Start 08/24/16 at 11:45; Stop 08/24/16 at 11:46 ; Status DC Fentanyl Citrate (Fentanyl 2ml Vial) 100 mcg STK-MED ONCE .ROUTE ; Start at 11:58; Stop 08/24/16 at 11:59; Status DC Midazolam HCl (Versed) 2 mg STK-MED ONCE .ROUTE ; Start 08/24/16 at 11:58; Stop 08/24/16 at 11:59; Status DC Heparin Sodium (Porcine) (Heparin Sodium) 4,300 unit 1X ONCE IV Last administered on 08/24/16 12:15; Start 08/24/16 at 12:15; Stop 08/24/16 at 12:21 ; Status DC Midazolam HCl (Versed) 2 mg 1X ONCE IV Last administered on 08/24/16 12:30; Start 08/24/16 at 12:30; Stop 08/24/16 at 12:31; Status DC Fentanyl Citrate 100 mcg 100 mcg 1X ONCE IV Last administered on 08/24/16 12: 30; Start 08/24/16 at 12:30; Stop 08/24/16 at 12:31; Status DC Cefazolin Sodium (Ancef 1gm Ivpb For Omni) 50 ml @ 100 mls/hr 1X ONCE IV Last administered on 08/24/16 12:29; Start 08/24/16 at 12:30; Stop 08/24/16 at 12:59; Status DC Warfarin Sodium (Coumadin) 4 mg 1X WARF ONCE PO Last administered on 18:08; Start 08/24/16 at 16:00; Stop 08/24/16 at 16:01; Status DC Mineral Oil (Fleet Mineral Oil) 133 ml PRN DAILY PRN NC CONSTIPATION; Start 03/02 at 19:30 Info (PHARMACY MONITORING -- do not chart) 1 each PRN DAILY PRN MC SEE COMMENTS ; Start 08/25/16 at 12:45; Stop 08/27/16 at 13:18; Status DC Info (PHARMACY MONITORING -- do not chart) 1 each PRN DAILY PRN MC SEE COMMENTS ; Start 08/25/16 at 12:45; Stop 08/27/16 at 13:18; Status DC Warfarin Sodium (Coumadin) 4 mg 1X WARF ONCE PO Last administered on 16:11; Start 08/25/16 at 16:00; Stop 08/25/16 at 16:01; Status DC Tramadol HCl (Ultram) 50 mg PRN TID PRN PO PAIN Last administered on 08/29/16 19:58; Start 08/25/16 at 15:45 Info (PHARMACY MONITORING -- do not chart) 1 each PRN DAILY PRN MC SEE COMMENTS ; Start 08/26/16 at 06:45; Stop 08/27/16 at 13:18; Status DC Warfarin Sodium (Coumadin) 4 mg 1X WARF ONCE PO Last administered on 17:13; Start 08/26/16 at 16:00; Stop 08/26/16 at 16:01; Status DC Info (PHARMACY MONITORING -- do not chart) 1 each PRN DAILY PRN MC SEE COMMENTS ; Start 08/27/16 at 08:00; Status UNV Info (PHARMACY MONITORING -- do not chart) 1 each PRN DAILY PRN MC SEE COMMENTS ; Start 08/27/16 at 08:00 Warfarin Sodium (Coumadin) 4 mg 1X WARF ONCE PO Last administered on t 18:32; Start 08/27/16 at 16:00; Stop 08/27/16 at 16:01; Status DC Warfarin Sodium 3 mg 3 mg 1X WARF ONCE PO Last administered on 08/28/16t 17:15 ; Start 08/28/16 at 16:00; Stop 08/28/16 at 16:01; Status DC Sodium Chloride (Iv Sodium Chloride 0.9% 1000ml Bag) 1,000 ml @ 1,000 mls/hr Q1H PRN IV hypotension; Start 08/28/16 at 10:42; Stop 08/28/16 at 16:41; Status DC Sodium Chloride (Normal Saline Flush) 10 ml 1X PRN PRN IV AP catheter pack; Start 08/28/16 at 10:45; Stop 08/29/16 at 10:44; Status DC Sodium Chloride (Normal Saline Flush) 10 ml 1X PRN PRN IV [employer]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; Start 08/28/16 at 10:45; Stop 08/29/16 at 10:44; Status DC Info (PHARMACY MONITORING -- do not chart) 1 each PRN DAILY PRN MC SEE COMMENTS ; Start 08/28/16 at 10:45; Status UNV Info (PHARMACY MONITORING -- do not chart) 1 each PRN DAILY PRN MC SEE COMMENTS ; Start 08/28/16 at 10:45; Status UNV Warfarin Sodium (Coumadin) 2.5 mg 1X WARF ONCE PO Last administered on 17:00; Start 08/29/16 at 16:00; Stop 08/29/16 at 16:01; Status DC Warfarin Sodium (Coumadin) 2 mg 1X WARF ONCE PO ; Start 08/30/16 at 16:00; Stop 08/30/16 at 16:01 Active Scripts Active Entresto 24 mg-26 mg Tablet (Sacubitril/Valsartan) 1 Each Tablet 1 Tab PO BID Coumadin (Warfarin Sodium) 2.5 Mg Tablet 2.5 Mg PO DAILY16 Reported Reglan (Metoclopramide Hcl) 10 Mg Tablet 5 Mg PO PRN BID PRN Atorvastatin Calcium 40 Mg Tablet 1 Tab PO DAILY Colestid (Colestipol Hcl) 1 Gm Tablet 1 Gm PO TID Pacerone (Amiodarone Hcl) 200 Mg Tablet 200 Mg PO DAILY Lasix (Furosemide) 80 Mg Tablet 1 Tab PO BID Gabapentin 100 Mg Capsule 1 Cap PO TID Aspir 81 (Aspirin) 81 Mg Tablet. 1 Tab PO DAILY Coreg (Carvedilol) 6.25 Mg Tablet 1 Tab PO BID K-Tab ER (Potassium Chloride) 20 Meq Tablet.er 20 Meq PO BID Vitals/I & O Vital Sign - Last 24 Hours 08/29/16 08/29/16 08/29/16 08/29/16 17:00 19:30 19:58 20:16 Temp 98.1 98.1 Pulse 65 65 Resp 26 20 B/P 92/57 84/45 Pulse Ox 95 O2 Delivery Room Air Room Air Room Air 08/29/16 08/29/16 08/30/16 08/30/16 20:58 23:28 02:47 07:36 Temp 97.7 97.6 97.6 97.7 97.6 97.6 Pulse 65 64 64 Resp 20 21 22 19 B/P 97/50 106/60 105/65 Pulse Ox 96 99 98 O2 Delivery Room Air Room Air Room Air Room Air 08/30/16 08/30/16 08/30/16 08/30/16 08:00 10:07 10:23 10:23 Temp 98.1 98.1 Pulse 66 61 62 Resp 20 B/P 100/57 99/56 99/56 Pulse Ox 97 O2 Delivery Room Air Room Air O2 Flow Rate 2.0 08/30/16 14:31 Temp 97.6 97.6 Pulse 63 Resp 18 B/P 97/58 Pulse Ox 96 O2 Delivery Room Air Intake and Output 08/29/16 08/29/16 08/30/16 15:00 23:00 07:00 Intake Total 120 ml 209 ml Output Total 0 ml Balance 120 ml 209 ml HEATHER CHERRY MD Aug 30, 2016 15:57
[2016-08-30] MEDS ORDERED: WARFARIN 2 MG TABLET. PO ONE (16:00)
[2016-08-30] MEDS ORDERED: POLYVINYL ALCOHOL 1.4% OPHTH SOLUTION 15ML BOTTLE. OU PRN (18:00)
[2016-08-30 19:25] VITALS: BP 92/55
[2016-08-30] MEDS: ATORVASTATIN CALCIUM 40 MG TABLET. PO SCH (21:21)
[2016-08-30 23:00] VITALS: BP 114/48
[2016-08-31 03:46] VITALS: BP 94/56
[2016-08-31 06:04] LABS: ALBUMIN 2.8 g/dL (3.4-5.0); ALBUMIN/GLOBULIN RATIO 0.9 (1.0-1.7); BASO # 0.1 x10^3/uL (0.0-0.2); BASO % 1 % (0-3); CALCIUM 7.6 mg/dL (8.5-10.1); CREATININE 2.7 mg/dL (0.7-1.3); EOS % 2 % (0-3); GFR 28.2; HEMATOCRIT 31.4 % (39.0-53.0); HEMOGLOBIN 9.8 g/dL (13.0-17.5); INR 3.5 (0.8-1.1); LYMPH # 0.6 x10^3/uL (1.0-4.8); LYMPH % 9 % (24-48); MEAN CORPUSCULAR HEMOGLOBIN 26 pg (25-35); MEAN CORPUSCULAR HGB CONC 31 g/dL (31-37); MEAN CORPUSCULAR VOLUME 83 fL (79-100); MONO % 8 % (0-9); NEUT % 80 % (31-73); PLATELET COUNT 118 x10^3/uL (140-400); POTASSIUM 4.1 mmol/L (3.5-5.1); PROTHROMBIN TIME PATIENT 33.6 SEC (11.7-14.0); RED BLOOD COUNT 3.79 x10^6/uL (4.30-5.70); RED CELL DISTRIBUTION WIDTH 22.7 % (11.5-14.5); TOTAL BILIRUBIN 0.6 mg/dL (0.2-1.0); TOTAL PROTEIN 5.9 g/dL (6.4-8.2); WHITE BLOOD COUNT 6.6 x10^3/uL (4.0-11.0)
[2016-08-31] MEDS: INSULIN ASPART 300 UNITS/3 ML INSULN.PEN SQ SCH ×3 (08:00→17:00)
[2016-08-31] MEDS ORDERED: DIALYSIS PATIENT. MC PRN ×2 (08:15)
[2016-08-31 08:29] LABS: ANISOCYTOSIS MOD; PLT ESTIMATE DECREASED (ADEQUATE); POIKILOCYTOSIS MOD
[2016-08-31 08:30] LABS: BURR CELLS PRESENT; OVALOCYTES PRESENT; SCHISTOCYTES OCC
--- NOTE | 2016-08-31 09:15 | PDOC ---
PROGRESS NOTES Subjective Subjective No new complaints. Objective Objective Vital Signs Date Time Temp Pulse Resp B/P Pulse Ox O2 Delivery O2 Flow Rate FiO2 08/31/16 03:46 97.7 65 16 94/56 100 Room Air 97.7 08/30/16 19:25 2.0 Intake and Output 08/31/16 06:59 Intake Total 730 ml Output Total 100 ml Balance 630 ml Intake Oral 730 ml Output Urine Total 100 ml # Voids 1 # Bowel Movements 1 Physical Exam Physical Exam She is sleepy reciving hemodialysis this AM and she had PRAFO boots in place to her feet. Assessment Assessment Problems Medical Problems: (1) Acute on chronic renal failure Status: Acute Plan Plan of Care To [facility] [place] when arrangements are completed. Comment Review of Relevant I have reviewed the following items marquise (where applicable) has been applied. Labs Laboratory Tests Test 08/29/16 10:50 08/29/16 17:04 08/29/16 20:56 08/30/16 05:00 Glucose (Fingerstick) 153mg/dL (70-99) 120mg/dL (70-99) 122mg/dL (70-99) Prothrombin Time 29.5SEC (11.7-14.0) Prothromb Time International Ratio 3.0 (0.8-1.1) Test 08/30/16 07:40 08/30/16 10:34 08/30/16 16:43 08/30/16 20:46 Glucose (Fingerstick) 115mg/dL (70-99) 151mg/dL (70-99) 120mg/dL (70-99) 137mg/dL (70-99) Test 08/31/16 05:30 White Blood Count 6.6x10^3/uL (4.0-11.0) Red Blood Count 3.79x10^6/uL (4.30-5.70) Hemoglobin 9.8g/dL (13.0-17.5) Hematocrit 31.4% (39.0-53.0) Mean Corpuscular Volume 83fL (79-100) Mean Corpuscular Hemoglobin 26pg (25-35) Mean Corpuscular Hemoglobin Concent 31g/dL (31-37) Red Cell Distribution Width 22.7% (11.5-14.5) Platelet Count 118x10^3/uL (140-400) Neutrophils (%) (Auto) 80% (31-73) Lymphocytes (%) (Auto) 9% (24-48) Monocytes (%) (Auto) 8% (0-9) Eosinophils (%) (Auto) 2% (0-3) Basophils (%) (Auto) 1% (0-3) Neutrophils # (Auto) 5.3x10^3uL (1.8-7.7) Lymphocytes # (Auto) 0.6x10^3/uL (1.0-4.8) Monocytes # (Auto) 0.5x10^3/uL (0.0-1.1) Eosinophils # (Auto) 0.1x10^3/uL (0.0-0.7) Basophils # (Auto) 0.1x10^3/uL (0.0-0.2) Platelet Estimate Decreased (ADEQUATE) Poikilocytosis Mod Anisocytosis Mod Ovalocytes Present Olga Cells Present Schistocytes Occ Prothrombin Time 33.6SEC (11.7-14.0) Prothromb Time International Ratio 3.5 (0.8-1.1) Sodium Level 134mmol/L (136-145) Potassium Level 4.1mmol/L (3.5-5.1) Chloride Level 98mmol/L (98-107) Carbon Dioxide Level 26mmol/L (21-32) Anion Gap 10 (6-14) Blood Urea Nitrogen 34mg/dL (8-26) Creatinine 2.7mg/dL (0.7-1.3) Estimated GFR (Cockcroft-Gault) 28.2 BUN/Creatinine Ratio 13 (6-20) Glucose Level 138mg/dL (70-99) Calcium Level 7.6mg/dL (8.5-10.1) Total Bilirubin 0.6mg/dL (0.2-1.0) Aspartate Amino Transf (AST/SGOT) 20U/L (15-37) Alanine Aminotransferase (ALT/SGPT) 20U/L (16-63) Alkaline Phosphatase 92U/L (46-116) Total Protein 5.9g/dL (6.4-8.2) Albumin 2.8g/dL (3.4-5.0) Albumin/Globulin Ratio 0.9 (1.0-1.7) Laboratory Tests Test 08/30/16 10:34 08/30/16 16:43 08/30/16 20:46 08/31/16 05:30 Glucose (Fingerstick) 151mg/dL (70-99) 120mg/dL (70-99) 137mg/dL (70-99) White Blood Count 6.6x10^3/uL (4.0-11.0) Red Blood Count 3.79x10^6/uL (4.30-5.70) Hemoglobin 9.8g/dL (13.0-17.5) Hematocrit 31.4% (39.0-53.0) Mean Corpuscular Volume 83fL (79-100) Mean Corpuscular Hemoglobin 26pg (25-35) Mean Corpuscular Hemoglobin Concent 31g/dL (31-37) Red Cell Distribution Width 22.7% (11.5-14.5) Platelet Count 118x10^3/uL (140-400) Neutrophils (%) (Auto) 80% (31-73) Lymphocytes (%) (Auto) 9% (24-48) Monocytes (%) (Auto) 8% (0-9) Eosinophils (%) (Auto) 2% (0-3) Basophils (%) (Auto) 1% (0-3) Neutrophils # (Auto) 5.3x10^3uL (1.8-7.7) Lymphocytes # (Auto) 0.6x10^3/uL (1.0-4.8) Monocytes # (Auto) 0.5x10^3/uL (0.0-1.1) Eosinophils # (Auto) 0.1x10^3/uL (0.0-0.7) Basophils # (Auto) 0.1x10^3/uL (0.0-0.2) Platelet Estimate Decreased (ADEQUATE) Poikilocytosis Mod Anisocytosis Mod Ovalocytes Present Olga Cells Present Schistocytes Occ Prothrombin Time 33.6SEC (11.7-14.0) Prothromb Time International Ratio 3.5 (0.8-1.1) Sodium Level 134mmol/L (136-145) Potassium Level 4.1mmol/L (3.5-5.1) Chloride Level 98mmol/L (98-107) Carbon Dioxide Level 26mmol/L (21-32) Anion Gap 10 (6-14) Blood Urea Nitrogen 34mg/dL (8-26) Creatinine 2.7mg/dL (0.7-1.3) Estimated GFR (Cockcroft-Gault) 28.2 BUN/Creatinine Ratio 13 (6-20) Glucose Level 138mg/dL (70-99) Calcium Level 7.6mg/dL (8.5-10.1) Total Bilirubin 0.6mg/dL (0.2-1.0) Aspartate Amino Transf (AST/SGOT) 20U/L (15-37) Alanine Aminotransferase (ALT/SGPT) 20U/L (16-63) Alkaline Phosphatase 92U/L (46-116) Total Protein 5.9g/dL (6.4-8.2) Albumin 2.8g/dL (3.4-5.0) Albumin/Globulin Ratio 0.9 (1.0-1.7) Microbiology 08/15/16 Urine Culture - Final, Complete 08/15/16 Urine Culture Result 1 (JV) - Final, Complete 08/15/16 Urine Culture Result 2 (JV) - Final, Complete 08/15/16 Antimicrobic Susceptibility - Final, Complete Medications Current Medications Insulin Aspart (Novolog) 0-5 UNITS TIDWMEALS SQ Last administered on 08/30/16 12:00; Start 08/14/16 at 17:30 Dextrose 12.5 gm 12.5 gm PRN Q15MIN PRN IV SEE COMMENTS; Start 08/14/16 at 16: 45 Sodium Chloride (Iv Sodium Chloride 0.9% 1000ml Bag) 1,000 ml @ 100 mls/hr Q10H IV Last administered on 08/14/16 18:53; Start 08/14/16 at 17:30; Stop 08/15/16 at 03:29; Status DC Amiodarone HCl (Cordarone) 200 mg DAILY PO Last administered on 08/30/16 10:23 ; Start 08/15/16 at 09:00 Aspirin (Ecotrin) 81 mg DAILY PO Last administered on 08/30/16 10:20; Start at 09:00 Atorvastatin Calcium (Lipitor) 40 mg QHS PO Last administered on 08/30/16 21: 21; Start 08/14/16 at 21:00 Carvedilol (Coreg) 6.25 mg BIDWMEALS PO Last administered on 08/30/16 17:58; Start 08/14/16 at 17:30 Colestipol HCl (Colestid) 1 gm TID PO Last administered on 08/17/16 20:55; Start 08/14/16 at 21:00; Stop 08/18/16 at 10:08; Status DC Metoclopramide HCl (Reglan) 5 mg PRN BID PRN PO NAUSEA; Start 08/14/16 at 16:45 ; Stop 08/16/16 at 10:25; Status DC Sacubitril/ Valsartan (Entresto 24 Mg-26 Mg) 1 tab BID PO Last administered on 08/17/16 09:14; Start 08/14/16 at 21:00; Stop 08/17/16 at 10:16; Status DC Warfarin Sodium (Coumadin) 2.5 mg DAILY16 PO Last administered on 08/14/16 18: 50; Start 08/14/16 at 18:00; Stop 08/15/16 at 14:13; Status DC Warfarin Sodium (Coumadin Per Physician) 1 each PRN DAILY PRN MC SEE COMMENTS; Start 08/14/16 at 17:15; Stop 08/15/16 at 09:54; Status DC Sodium Polystyrene Sulfonate (Kayexalate) 60 gm 1X ONCE PO Last administered on 08/14/16 18:51; Start 08/14/16 at 18:30; Stop 08/14/16 at 18:31; Status DC Warfarin Sodium (Coumadin Per Pharmacy) 1 each PRN DAILY PRN MC SEE COMMENTS Last administered on 08/30/16 07:52; Start 08/15/16 at 10:00 Pantoprazole Sodium 40 mg 40 mg DAILYAC PO Last administered on 08/30/16 10:21 ; Start 08/15/16 at 11:30 Dobutamine HCl/ Dextrose 250 ml @ 0 mls/hr CONT PRN IV ; Start 08/15/16 at 14:00 ; Stop 08/15/16 at 14:53; Status DC Albumin Human (Albuminar) 100 ml @ 100 mls/hr 1X ONCE IV Last administered on 08/15/16 15:25; Start 08/15/16 at 14:00; Stop 08/15/16 at 14:59; Status DC Furosemide 40 mg 40 mg 1X ONCE IVP Last administered on 08/15/16 16:22; Start 08/15/16 at 15:00; Stop 08/15/16 at 15:01; Status DC Albumin Human (Albuminar) 100 ml @ 100 mls/hr 1X ONCE IV Last administered on 08/16/16 08:41; Start 08/16/16 at 09:00; Stop 08/16/16 at 09:59; Status DC Furosemide (Lasix) 40 mg 1X ONCE IVP Last administered on 08/16/16 09:45; Start 08/16/16 at 10:00; Stop 08/16/16 at 10:01; Status DC Warfarin Sodium 4 mg 4 mg 1X WARF ONCE PO Last administered on 08/15/16 16:33 ; Start 08/15/16 at 16:00; Stop 08/15/16 at 16:01; Status DC Dobutamine HCl/ Dextrose 250 ml @ 0 mls/hr CONT PRN PRN IV SEE I/O RECORD Last administered on 08/30/16 02:39; Start 08/15/16 at 14:53 Sodium Bicarbonate 50 meq 50 meq Q2HR IV Last administered on 08/15/16 18:20; Start 08/15/16 at 16:00; Stop 08/15/16 at 18:30; Status DC Magnesium Sulfate/ Dextrose (Magnesium Sulfate PREMIX 2GM) 50 ml @ 25 mls/hr PRN DAILY PRN IV for Mag < 1.7 on am labs; Start 08/15/16 at 15:30 Warfarin Sodium (Coumadin) 4 mg 1X WARF ONCE PO Last administered on 08/16/16 17:28; Start 08/16/16 at 16:00; Stop 08/16/16 at 16:01; Status DC Ondansetron HCl 4 mg 4 mg PRN Q6HRS PRN IV nausea Last administered on 00:53; Start 08/16/16 at 20:30 Ceftriaxone Sodium 1 gm/ Sodium Chloride 50 ml @ 100 mls/hr Q24H IV Last administered on 08/19/16 10:00; Start 08/17/16 at 10:00; Stop 08/19/16 at 12:56; Status DC Sodium Chloride (Iv Sodium Chloride 0.9% 1000ml Bag) 1,000 ml @ 75 mls/hr [id number] IV Last administered on 08/19/16 16:58; Start 08/17/16 at 10:15; Stop at 09:27; Status DC Warfarin Sodium (Coumadin) 5 mg 1X WARF ONCE PO ; Start 08/17/16 at 16:00; Stop 08/17/16 at 16:01; Status DC Heparin Sodium/ Sodium Chloride 1,000 unit 1X ONCE IART Last administered on 11:45; Start 08/18/16 at 11:30; Stop 08/18/16 at 11:31; Status DC Midazolam HCl (Versed) 2 mg 1X ONCE IV Last administered on 08/18/16 11:46; Start 08/18/16 at 11:30; Stop 08/18/16 at 11:31; Status DC Fentanyl Citrate (Fentanyl 2ml Vial) 100 mcg 1X ONCE IV Last administered on 11:47; Start 08/18/16 at 11:30; Stop 08/18/16 at 11:31; Status DC Lidocaine/ Epinephrine 15 ml 15 ml 1X ONCE IJ Last administered on 08/18/16 11 :44; Start 08/18/16 at 11:30; Stop 08/18/16 at 11:31; Status DC Vancomycin HCl 250 ml @ 250 mls/hr 1X ONCE IRR Last administered on 08/18/16 11:45; Start 08/18/16 at 11:30; Stop 08/18/16 at 12:29; Status DC Heparin Sodium (Porcine) (Hep Lock Adult) 500 unit 1X ONCE IV Last administered on 08/18/16 11:46; Start 08/18/16 at 11:30; Stop 08/18/16 at 11:31; Status DC Heparin Sodium (Porcine) (Hep Lock Adult) 500 unit STK-MED ONCE IV ; Start at 09:29; Stop 08/18/16 at 11:42; Status DC Lidocaine/ Epinephrine 20 ml 20 ml STK-MED ONCE .ROUTE ; Start 08/18/16 at 09:29 ; Stop 08/18/16 at 11:42; Status DC Heparin Sodium/ Sodium Chloride 500 ml @ As Directed STK-MED ONCE .ROUTE ; Start 08/18/16 at 09:29; Stop 08/18/16 at 11:42; Status DC Vancomycin HCl 250 ml @ As Directed STK-MED ONCE .ROUTE ; Start 08/18/16 at 09: 29; Stop 08/18/16 at 11:42; Status DC Fentanyl Citrate (Fentanyl 2ml Vial) 100 mcg STK-MED ONCE .ROUTE ; Start at 10:29; Stop 08/18/16 at 11:43; Status DC Midazolam HCl 2 mg 2 mg STK-MED ONCE .ROUTE ; Start 08/18/16 at 10:30; Stop at 11:43; Status DC Iron Sucrose/ Sodium Chloride (Venofer/Iv Sodium Chloride 0.9% 100ml) 110 ml @ 55 mls/hr 3X/WEEK IV Last administered on 08/28/16 09:10; Start 08/19/16 at 09: 00; Stop 08/28/16 at 10:59; Status DC Warfarin Sodium (Coumadin) 5 mg 1X WARF ONCE PO Last administered on 08/18/16 17:56; Start 08/18/16 at 16:00; Stop 08/18/16 at 16:01; Status DC Warfarin Sodium (Coumadin) 3 mg 1X WARF ONCE PO ; Start 08/19/16 at 16:00; Stop 08/19/16 at 16:01; Status Cancel Cefpodoxime Proxetil (Vantin) 100 mg BID PO Last administered on 08/26/16 20: 40; Start 08/19/16 at 21:00; Stop 08/26/16 at 21:01; Status DC Warfarin Sodium (Coumadin) 2.5 mg 1X WARF ONCE PO Last administered on 16:59; Start 08/19/16 at 16:00; Stop 08/19/16 at 16:01; Status DC Senna/Docusate Sodium 1 tab 1 tab PRN BID PRN PO CONSTIPATION Last administered on 08/20/16 14:18; Start 08/19/16 at 13:30; Stop 08/20/16 at 14:43; Status DC Sodium Chloride 250 ml @ 0 mls/hr 1X ONCE IV Last administered on 08/19/16 14: 33; Start 08/19/16 at 13:45; Stop 08/19/16 at 13:53; Status DC Sodium Chloride (Iv Sodium Chloride 0.9% 500ml Bag) 500 ml @ 0 mls/hr 1X ONCE IV Last administered on 08/19/16 16:58; Start 08/19/16 at 16:00; Stop 08/19/16 at 16:01; Status DC Senna/Docusate Sodium (Senna Plus) 1 tab PRN BID PRN PO CONSTIPATION Last administered on 08/28/16 16:20; Start 08/20/16 at 10:00 Bisacodyl (Dulcolax Supp) 10 mg 1X ONCE DE ; Start 08/20/16 at 11:00; Stop at 11:00; Status DC Bisacodyl (Dulcolax Supp) 10 mg 1X ONCE DE Last administered on 08/20/16 16:49 ; Start 08/20/16 at 14:30; Stop 08/20/16 at 14:31; Status DC Warfarin Sodium (Coumadin) 2 mg 1X WARF ONCE PO Last administered on 08/20/16 16:48; Start 08/20/16 at 16:00; Stop 08/20/16 at 16:01; Status DC Mineral Oil (Fleet Mineral Oil) 133 ml 1X ONCE DE ; Start 08/21/16 at 20:00; Stop 08/21/16 at 20:00; Status DC Non-Formulary Medication 1 ea Q4H PO Last administered on 08/21/16 16:18; Start 08/21/16 at 12:00; Stop 08/21/16 at 16:01; Status DC Sodium Bicarbonate 50 meq Q6H IV Last administered on 08/21/16 20:16; Start 08/21/16 at 14:00; Stop 08/21/16 at 20:01; Status DC Warfarin Sodium (Coumadin) 3 mg 1X WARF ONCE PO Last administered on 08/21/16 16:16; Start 08/21/16 at 16:00; Stop 08/21/16 at 16:01; Status DC Warfarin Sodium (Coumadin) 2.5 mg 1X WARF ONCE PO Last administered on 16:00; Start 08/22/16 at 16:00; Stop 08/22/16 at 16:01; Status DC Warfarin Sodium (Coumadin) 3 mg 1X WARF ONCE PO Last administered on 08/23/16 18:28; Start 08/23/16 at 16:00; Stop 08/23/16 at 16:01; Status DC Lidocaine/ Epinephrine (Xylocaine 2%-Epi 1:100,000) 20 ml STK-MED ONCE .ROUTE ; Start 08/24/16 at 10:54; Stop 08/24/16 at 10:55; Status DC Heparin Sodium (Porcine) 76574 unit 10,000 unit STK-MED ONCE .ROUTE ; Start 03/02 at 10:54; Stop 08/24/16 at 10:55; Status DC Heparin Sodium/ Sodium Chloride 500 ml @ As Directed STK-MED ONCE .ROUTE ; Start 08/24/16 at 10:54; Stop 08/24/16 at 10:55; Status DC Darbepoetin Dino (Aranesp) 60 mcg WEEKLYHS SQ Last administered on 08/24/16 20 :59; Start 08/24/16 at 21:00 Fentanyl Citrate (Fentanyl 2ml Vial) 100 mcg STK-MED ONCE .ROUTE ; Start at 11:26; Stop 08/24/16 at 11:27; Status DC Midazolam HCl 2 mg 2 mg STK-MED ONCE .ROUTE ; Start 08/24/16 at 11:26; Stop 03/02 at 11:27; Status DC Cefazolin Sodium (Ancef 1gm Ivpb For Omni) 0 ml @ As Directed STK-MED ONCE IV ; Start 08/24/16 at 11:26; Stop 08/24/16 at 11:27; Status DC Heparin Sodium/ Sodium Chloride 1,000 unit 1X ONCE IART Last administered on 12:23; Start 08/24/16 at 11:45; Stop 08/24/16 at 11:46; Status DC Lidocaine/ Epinephrine (Xylocaine 2%-Epi 1:100,000) 20 ml 1X ONCE IJ Last administered on 08/24/16 12:23; Start 08/24/16 at 11:45; Stop 08/24/16 at 11:46 ; Status DC Fentanyl Citrate (Fentanyl 2ml Vial) 100 mcg STK-MED ONCE .ROUTE ; Start at 11:58; Stop 08/24/16 at 11:59; Status DC Midazolam HCl (Versed) 2 mg STK-MED ONCE .ROUTE ; Start 08/24/16 at 11:58; Stop 08/24/16 at 11:59; Status DC Heparin Sodium (Porcine) (Heparin Sodium) 4,300 unit 1X ONCE IV Last administered on 08/24/16 12:15; Start 08/24/16 at 12:15; Stop 08/24/16 at 12:21 ; Status DC Midazolam HCl (Versed) 2 mg 1X ONCE IV Last administered on 08/24/16 12:30; Start 08/24/16 at 12:30; Stop 08/24/16 at 12:31; Status DC Fentanyl Citrate 100 mcg 100 mcg 1X ONCE IV Last administered on 08/24/16 12: 30; Start 08/24/16 at 12:30; Stop 08/24/16 at 12:31; Status DC Cefazolin Sodium (Ancef 1gm Ivpb For Omni) 50 ml @ 100 mls/hr 1X ONCE IV Last administered on 08/24/16 12:29; Start 08/24/16 at 12:30; Stop 08/24/16 at 12:59; Status DC Warfarin Sodium (Coumadin) 4 mg 1X WARF ONCE PO Last administered on 18:08; Start 08/24/16 at 16:00; Stop 08/24/16 at 16:01; Status DC Mineral Oil (Fleet Mineral Oil) 133 ml PRN DAILY PRN DE CONSTIPATION; Start 03/02 at 19:30 Info (PHARMACY MONITORING -- do not chart) 1 each PRN DAILY PRN MC SEE COMMENTS ; Start 08/25/16 at 12:45; Stop 08/27/16 at 13:18; Status DC Info (PHARMACY MONITORING -- do not chart) 1 each PRN DAILY PRN MC SEE COMMENTS ; Start 08/25/16 at 12:45; Stop 08/27/16 at 13:18; Status DC Warfarin Sodium (Coumadin) 4 mg 1X WARF ONCE PO Last administered on 16:11; Start 08/25/16 at 16:00; Stop 08/25/16 at 16:01; Status DC Tramadol HCl (Ultram) 50 mg PRN TID PRN PO PAIN Last administered on 08/29/16 19:58; Start 08/25/16 at 15:45 Info (PHARMACY MONITORING -- do not chart) 1 each PRN DAILY PRN MC SEE COMMENTS ; Start 08/26/16 at 06:45; Stop 08/27/16 at 13:18; Status DC Warfarin Sodium (Coumadin) 4 mg 1X WARF ONCE PO Last administered on 17:13; Start 08/26/16 at 16:00; Stop 08/26/16 at 16:01; Status DC Info (PHARMACY MONITORING -- do not chart) 1 each PRN DAILY PRN MC SEE COMMENTS ; Start 08/27/16 at 08:00; Status UNV Info (PHARMACY MONITORING -- do not chart) 1 each PRN DAILY PRN MC SEE COMMENTS ; Start 08/27/16 at 08:00 Warfarin Sodium (Coumadin) 4 mg 1X WARF ONCE PO Last administered on 18:32; Start 08/27/16 at 16:00; Stop 08/27/16 at 16:01; Status DC Warfarin Sodium 3 mg 3 mg 1X WARF ONCE PO Last administered on 08/28/16 17:15 ; Start 08/28/16 at 16:00; Stop 08/28/16 at 16:01; Status DC Sodium Chloride (Iv Sodium Chloride 0.9% 1000ml Bag) 1,000 ml @ 1,000 mls/hr Q1H PRN IV hypotension; Start 08/28/16 at 10:42; Stop 08/28/16 at 16:41; Status DC Sodium Chloride (Normal Saline Flush) 10 ml 1X PRN PRN IV AP catheter pack; Start 08/28/16 at 10:45; Stop 08/29/16 at 10:44; Status DC Sodium Chloride (Normal Saline Flush) 10 ml 1X PRN PRN IV 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 [employer]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 catheter 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; Start 08/28/16 at 10:45; Stop 08/29/16 at 10:44; Status DC Info (PHARMACY MONITORING -- do not chart) 1 each PRN DAILY PRN MC SEE COMMENTS ; Start 08/28/16 at 10:45; Status UNV Info (PHARMACY MONITORING -- do not chart) 1 each PRN DAILY PRN MC SEE COMMENTS ; Start 08/28/16 at 10:45; Status UNV Warfarin Sodium (Coumadin) 2.5 mg 1X WARF ONCE PO Last administered on 17:00; Start 08/29/16 at 16:00; Stop 08/29/16 at 16:01; Status DC Warfarin Sodium (Coumadin) 2 mg 1X WARF ONCE PO Last administered on 17:58; Start 08/30/16 at 16:00; Stop 08/30/16 at 16:01; Status DC Artificial Tears (Artificial Tears) 1 drop PRN Q15MIN PRN OU DRY EYE Last administered on 08/30/16 21:21; Start 08/30/16 at 18:00 Info (PHARMACY MONITORING -- do not chart) 1 each PRN DAILY PRN MC SEE COMMENTS ; Start 08/31/16 at 08:15 Info (PHARMACY MONITORING -- do not chart) 1 each PRN DAILY PRN MC SEE COMMENTS ; Start 08/31/16 at 08:15; Status UNV Active Scripts Active Entresto 24 mg-26 mg Tablet (Sacubitril/Valsartan) 1 Each Tablet 1 Tab PO BID Coumadin (Warfarin Sodium) 2.5 Mg Tablet 2.5 Mg PO DAILY16 Reported Reglan (Metoclopramide Hcl) 10 Mg Tablet 5 Mg PO PRN BID PRN Atorvastatin Calcium 40 Mg Tablet 1 Tab PO DAILY Colestid (Colestipol Hcl) 1 Gm Tablet 1 Gm PO TID Pacerone (Amiodarone Hcl) 200 Mg Tablet 200 Mg PO DAILY Lasix (Furosemide) 80 Mg Tablet 1 Tab PO BID Gabapentin 100 Mg Capsule 1 Cap PO TID Aspir 81 (Aspirin) 81 Mg Tablet.dr 1 Tab PO DAILY Coreg (Carvedilol) 6.25 Mg Tablet 1 Tab PO BID K-Tab ER (Potassium Chloride) 20 Meq Tablet.er 20 Meq PO BID Vitals/I & O Vital Sign - Last 24 Hours 08/30/16 08/30/16 08/30/16 08/30/16 10:07 10:23 10:23 14:31 Temp 98.1 97.6 98.1 97.6 Pulse 66 61 62 63 Resp 20 18 B/P 100/57 99/56 99/56 97/58 Pulse Ox 97 96 O2 Delivery Room Air Room Air 08/30/16 08/30/16 08/30/16 08/30/16 17:58 19:25 19:25 23:00 Temp 98.2 97.8 98.2 97.8 Pulse 65 63 102 Resp 16 16 B/P 100/59 92/55 114/48 Pulse Ox 95 95 O2 Delivery Room Air Room Air Room Air O2 Flow Rate 2.0 08/31/16 03:46 Temp 97.7 97.7 Pulse 65 Resp 16 B/P 94/56 Pulse Ox 100 O2 Delivery Room Air Intake and Output 08/30/16 08/30/16 08/31/16 14:59 22:59 06:59 Intake Total 120 ml 400 ml 210 ml Output Total 100 ml Balance 120 ml 400 ml 110 ml MADDIE AMBROSE MD Aug 31, 2016 09:15
--- NOTE | 2016-08-31 09:42 | PDOC ---
Dialysis Progress Note Dialysis Note Dialysis Note SONA/ ATN in setting of SEv Cardiomyoaphty - --> ? ESRD Seen on Hemodialysis, tolerating treatment Okay Vitals on Hemodialysis: 111/57 68 afeb General Appearance: Awake: Alert Oriented x 3 Neck: min JVD or ++ JVP Chest: CTA Matthew Heart: S1 S2; sys Murmur Abdomen - Soft NTND Extremities - No Edema ESRD v/s ARF/ ATN : Dialysis as below F 180 NR 3.0 Hrs 3 K 2.5 Ca 140 Na 35 HC03 Qb 350 + Qd 500+ Heparin 0 Units Uf 1-2 Kgs or to dry weight as tolerated May give 25-50 gms of 25% Albumin if needed to maintain Hemodynamic stability Treatment plan reviewed and discussed with delimer Vitals Vital Signs Vital Signs Date Time Temp Pulse Resp B/P Pulse Ox O2 Delivery O2 Flow Rate FiO2 08/31/16 03:46 97.7 65 16 94/56 100 Room Air 97.7 08/30/16 19:25 2.0 Labs Last Labs Laboratory Tests Test 08/29/16 10:50 08/29/16 17:04 08/29/16 20:56 08/30/16 05:00 Glucose (Fingerstick) 153mg/dL (70-99) 120mg/dL (70-99) 122mg/dL (70-99) Prothrombin Time 29.5SEC (11.7-14.0) Prothromb Time International Ratio 3.0 (0.8-1.1) Test 08/30/16 07:40 08/30/16 10:34 08/30/16 16:43 08/30/16 20:46 Glucose (Fingerstick) 115mg/dL (70-99) 151mg/dL (70-99) 120mg/dL (70-99) 137mg/dL (70-99) Test 08/31/16 05:30 White Blood Count 6.6x10^3/uL (4.0-11.0) Red Blood Count 3.79x10^6/uL (4.30-5.70) Hemoglobin 9.8g/dL (13.0-17.5) Hematocrit 31.4% (39.0-53.0) Mean Corpuscular Volume 83fL (79-100) Mean Corpuscular Hemoglobin 26pg (25-35) Mean Corpuscular Hemoglobin Concent 31g/dL (31-37) Red Cell Distribution Width 22.7% (11.5-14.5) Platelet Count 118x10^3/uL (140-400) Neutrophils (%) (Auto) 80% (31-73) Lymphocytes (%) (Auto) 9% (24-48) Monocytes (%) (Auto) 8% (0-9) Eosinophils (%) (Auto) 2% (0-3) Basophils (%) (Auto) 1% (0-3) Neutrophils # (Auto) 5.3x10^3uL (1.8-7.7) Lymphocytes # (Auto) 0.6x10^3/uL (1.0-4.8) Monocytes # (Auto) 0.5x10^3/uL (0.0-1.1) Eosinophils # (Auto) 0.1x10^3/uL (0.0-0.7) Basophils # (Auto) 0.1x10^3/uL (0.0-0.2) Platelet Estimate Decreased (ADEQUATE) Poikilocytosis Mod Anisocytosis Mod Ovalocytes Present [place] Cells Present Schistocytes Occ Prothrombin Time 33.6SEC (11.7-14.0) Prothromb Time International Ratio 3.5 (0.8-1.1) Sodium Level 134mmol/L (136-145) Potassium Level 4.1mmol/L (3.5-5.1) Chloride Level 98mmol/L (98-107) Carbon Dioxide Level 26mmol/L (21-32) Anion Gap 10 (6-14) Blood Urea Nitrogen 34mg/dL (8-26) Creatinine 2.7mg/dL (0.7-1.3) Estimated GFR (Cockcroft-Gault) 28.2 BUN/Creatinine Ratio 13 (6-20) Glucose Level 138mg/dL (70-99) Calcium Level 7.6mg/dL (8.5-10.1) Total Bilirubin 0.6mg/dL (0.2-1.0) Aspartate Amino Transf (AST/SGOT) 20U/L (15-37) Alanine Aminotransferase (ALT/SGPT) 20U/L (16-63) Alkaline Phosphatase 92U/L (46-116) Total Protein 5.9g/dL (6.4-8.2) Albumin 2.8g/dL (3.4-5.0) Albumin/Globulin Ratio 0.9 (1.0-1.7) Laboratory Tests Test 08/30/16 10:34 08/30/16 16:43 08/30/16 20:46 08/31/16 05:30 Glucose (Fingerstick) 151mg/dL (70-99) 120mg/dL (70-99) 137mg/dL (70-99) White Blood Count 6.6x10^3/uL (4.0-11.0) Red Blood Count 3.79x10^6/uL (4.30-5.70) Hemoglobin 9.8g/dL (13.0-17.5) Hematocrit 31.4% (39.0-53.0) Mean Corpuscular Volume 83fL (79-100) Mean Corpuscular Hemoglobin 26pg (25-35) Mean Corpuscular Hemoglobin Concent 31g/dL (31-37) Red Cell Distribution Width 22.7% (11.5-14.5) Platelet Count 118x10^3/uL (140-400) Neutrophils (%) (Auto) 80% (31-73) Lymphocytes (%) (Auto) 9% (24-48) Monocytes (%) (Auto) 8% (0-9) Eosinophils (%) (Auto) 2% (0-3) Basophils (%) (Auto) 1% (0-3) Neutrophils # (Auto) 5.3x10^3uL (1.8-7.7) Lymphocytes # (Auto) 0.6x10^3/uL (1.0-4.8) Monocytes # (Auto) 0.5x10^3/uL (0.0-1.1) Eosinophils # (Auto) 0.1x10^3/uL (0.0-0.7) Basophils # (Auto) 0.1x10^3/uL (0.0-0.2) Platelet Estimate Decreased (ADEQUATE) Poikilocytosis Mod Anisocytosis Mod Ovalocytes Present [place] Cells Present Schistocytes Occ Prothrombin Time 33.6SEC (11.7-14.0) Prothromb Time International Ratio 3.5 (0.8-1.1) Sodium Level 134mmol/L (136-145) Potassium Level 4.1mmol/L (3.5-5.1) Chloride Level 98mmol/L (98-107) Carbon Dioxide Level 26mmol/L (21-32) Anion Gap 10 (6-14) Blood Urea Nitrogen 34mg/dL (8-26) Creatinine 2.7mg/dL (0.7-1.3) Estimated GFR (Cockcroft-Gault) 28.2 BUN/Creatinine Ratio 13 (6-20) Glucose Level 138mg/dL (70-99) Calcium Level 7.6mg/dL (8.5-10.1) Total Bilirubin 0.6mg/dL (0.2-1.0) Aspartate Amino Transf (AST/SGOT) 20U/L (15-37) Alanine Aminotransferase (ALT/SGPT) 20U/L (16-63) Alkaline Phosphatase 92U/L (46-116) Total Protein 5.9g/dL (6.4-8.2) Albumin 2.8g/dL (3.4-5.0) Albumin/Globulin Ratio 0.9 (1.0-1.7) Assessment Assessment Problems Medical Problems: (1) Acute on chronic renal failure Status: Acute Problems: Plan Plan of Care Problems Medical Problems: (1) Acute on chronic renal failure Status: Acute ALLI SELBY MD Aug 31, 2016 09:42
--- NOTE | 2016-08-31 10:13 | PDOC ---
PROGRESS NOTES Subjective Subjective feels better today Objective Objective Vital Signs Date Time Temp Pulse Resp B/P Pulse Ox O2 Delivery O2 Flow Rate FiO2 08/31/16 07:40 Room Air 2.0 08/31/16 03:46 97.7 65 16 94/56 100 97.7 Intake and Output 08/31/16 07:00 Intake Total 730 ml Output Total 100 ml Balance 630 ml Intake Oral 730 ml Output Urine Total 100 ml # Voids 1 # Bowel Movements 1 Physical Exam Abdomen: Normal bowel sounds, Soft, No tenderness Heart: Regular rate, Normal S1, Normal S2, Other (1-2/6 systolic murmur) Extremities: No clubbing, No cyanosis General: Alert, Oriented X3, Cooperative, No acute distress HEENT: Atraumatic, PERRLA Lungs: Clear to auscultation MUSCULOSKELETAL: No joint tenderness, No deformity, No muscular tenderness noted Neck: Supple Neuro: Normal speech Psych/Mental Status: Mood NL Skin: No rashes, No significant lesion Diagnosis Problem List Problems Medical Problems: (1) Acute on chronic renal failure Status: Acute Assessment Assessment New ESRD on dialysis,started on dialysis last week * urinary retention improved. ac on crf. possible ATN 1. ARF with CKD II ATN SONA on HD 2. a/c systolic CHF ICM EF 10% AICD 3. HTN 4. DM II with CKD II diet control 5. hyperlipidemia 6. mild to mod MR 7. moderate pulmonary HTN 8. severe weakness and debility 9. metabolic encephalopathy POA 10. moderate chronic PCL malnutrition PLAN:waiting for dialysis slot to be opened ,close to her daughters place in [place], [place]. [facility] screen pending.No transfer to [place] this weekend. Improving slowly. INR 3.5 Adjust Coumadin. dobutamine infusions Problems: Plan Plan of Care Problems Medical Problems: (1) Acute on chronic renal failure Status: Acute Comment Review of Relevant I have reviewed the following items marquise (where applicable) has been applied. Labs Laboratory Tests Test 08/30/16 10:34 08/30/16 16:43 08/30/16 20:46 08/31/16 05:30 Glucose (Fingerstick) 151mg/dL (70-99) 120mg/dL (70-99) 137mg/dL (70-99) White Blood Count 6.6x10^3/uL (4.0-11.0) Red Blood Count 3.79x10^6/uL (4.30-5.70) Hemoglobin 9.8g/dL (13.0-17.5) Hematocrit 31.4% (39.0-53.0) Mean Corpuscular Volume 83fL (79-100) Mean Corpuscular Hemoglobin 26pg (25-35) Mean Corpuscular Hemoglobin Concent 31g/dL (31-37) Red Cell Distribution Width 22.7% (11.5-14.5) Platelet Count 118x10^3/uL (140-400) Neutrophils (%) (Auto) 80% (31-73) Lymphocytes (%) (Auto) 9% (24-48) Monocytes (%) (Auto) 8% (0-9) Eosinophils (%) (Auto) 2% (0-3) Basophils (%) (Auto) 1% (0-3) Neutrophils # (Auto) 5.3x10^3uL (1.8-7.7) Lymphocytes # (Auto) 0.6x10^3/uL (1.0-4.8) Monocytes # (Auto) 0.5x10^3/uL (0.0-1.1) Eosinophils # (Auto) 0.1x10^3/uL (0.0-0.7) Basophils # (Auto) 0.1x10^3/uL (0.0-0.2) Platelet Estimate Decreased (ADEQUATE) Poikilocytosis Mod Anisocytosis Mod Ovalocytes Present [place] Cells Present Schistocytes Occ Prothrombin Time 33.6SEC (11.7-14.0) Prothromb Time International Ratio 3.5 (0.8-1.1) Sodium Level 134mmol/L (136-145) Potassium Level 4.1mmol/L (3.5-5.1) Chloride Level 98mmol/L (98-107) Carbon Dioxide Level 26mmol/L (21-32) Anion Gap 10 (6-14) Blood Urea Nitrogen 34mg/dL (8-26) Creatinine 2.7mg/dL (0.7-1.3) Estimated GFR (Cockcroft-Gault) 28.2 BUN/Creatinine Ratio 13 (6-20) Glucose Level 138mg/dL (70-99) Calcium Level 7.6mg/dL (8.5-10.1) Total Bilirubin 0.6mg/dL (0.2-1.0) Aspartate Amino Transf (AST/SGOT) 20U/L (15-37) Alanine Aminotransferase (ALT/SGPT) 20U/L (16-63) Alkaline Phosphatase 92U/L (46-116) Total Protein 5.9g/dL (6.4-8.2) Albumin 2.8g/dL (3.4-5.0) Albumin/Globulin Ratio 0.9 (1.0-1.7) Microbiology 08/15/16 Urine Culture - Final, Complete 08/15/16 Urine Culture Result 1 (JV) - Final, Complete 08/15/16 Urine Culture Result 2 (JV) - Final, Complete 08/15/16 Antimicrobic Susceptibility - Final, Complete Medications Current Medications Artificial Tears (Artificial Tears) 1 drop PRN Q15MIN PRN OU DRY EYE Last administered on 08/30/16 21:21; Start 08/30/16 at 18:00 Info (PHARMACY MONITORING -- do not chart) 1 each PRN DAILY PRN MC SEE COMMENTS ; Start 08/31/16 at 08:15 Info (PHARMACY MONITORING -- do not chart) 1 each PRN DAILY PRN MC SEE COMMENTS ; Start 08/31/16 at 08:15; Status UNV Warfarin Sodium (Coumadin) 2 mg 1X WARF ONCE PO Last administered on 17:58; Start 08/30/16 at 16:00; Stop 08/30/16 at 16:01; Status DC Vitals/I & O Vital Sign - Last 24 Hours 08/30/16 08/30/16 08/30/16 08/30/16 10:23 10:23 14:31 17:58 Temp 97.6 97.6 Pulse 61 62 63 65 Resp 18 B/P 99/56 99/56 97/58 100/59 Pulse Ox 96 O2 Delivery Room Air 08/30/16 08/30/16 08/30/16 08/31/16 19:25 19:25 23:00 03:46 Temp 98.2 97.8 97.7 98.2 97.8 97.7 Pulse 63 102 65 Resp 16 16 16 B/P 92/55 114/48 94/56 Pulse Ox 95 95 100 O2 Delivery Room Air Room Air Room Air Room Air O2 Flow Rate 2.0 08/31/16 07:40 O2 Delivery Room Air O2 Flow Rate 2.0 Intake and Output 08/30/16 08/30/16 08/31/16 15:00 23:00 07:00 Intake Total 120 ml 400 ml 210 ml Output Total 100 ml Balance 120 ml 400 ml 110 ml AFSHAN SLADE MD Aug 31, 2016 10:13
[2016-08-31] MEDS: PANTOPRAZOLE 40 MG TABLET.DR. PO SCH (11:42)
[2016-08-31] MEDS: AMIODARONE HCL 200 MG TABLET. PO SCH (11:42)
[2016-08-31] MEDS: CARVEDILOL 6.25 MG TABLET. PO SCH ×2 (11:42→18:14)
[2016-08-31] MEDS: ASPIRIN ENTERIC COATED 81 MG TABLET.DR. PO SCH (11:42)
[2016-08-31 11:45] VITALS: BP 104/50
--- NOTE | 2016-08-31 12:17 | PDOC ---
PROGRESS NOTES Subjective Subjective Patient just returned from dialysis and states she is feeling well today. Objective Objective Vital Signs Date Time Temp Pulse Resp B/P Pulse Ox O2 Delivery O2 Flow Rate FiO2 08/31/16 11:45 97.9 68 18 104/50 95 Room Air 97.9 08/31/16 07:40 2.0 Intake and Output 08/31/16 07:00 Intake Total 730 ml Output Total 100 ml Balance 630 ml Intake Oral 730 ml Output Urine Total 100 ml # Voids 1 # Bowel Movements 1 Physical Exam Physical Exam Unchanged from cardiac standpoint. Assessment Assessment Patient stable on current Dobutamine drip dose. Problems Medical Problems: (1) Acute on chronic renal failure Status: Acute Plan Plan of Care Awaiting transfer to [facility] to be arranged. Agree with present plan. Comment Review of Relevant I have reviewed the following items marquise (where applicable) has been applied. Labs Laboratory Tests Test 08/29/16 17:04 08/29/16 20:56 08/30/16 05:00 08/30/16 07:40 Glucose (Fingerstick) 120mg/dL (70-99) 122mg/dL (70-99) 115mg/dL (70-99) Prothrombin Time 29.5SEC (11.7-14.0) Prothromb Time International Ratio 3.0 (0.8-1.1) Test 08/30/16 10:34 08/30/16 16:43 08/30/16 20:46 08/31/16 05:30 Glucose (Fingerstick) 151mg/dL (70-99) 120mg/dL (70-99) 137mg/dL (70-99) White Blood Count 6.6x10^3/uL (4.0-11.0) Red Blood Count 3.79x10^6/uL (4.30-5.70) Hemoglobin 9.8g/dL (13.0-17.5) Hematocrit 31.4% (39.0-53.0) Mean Corpuscular Volume 83fL (79-100) Mean Corpuscular Hemoglobin 26pg (25-35) Mean Corpuscular Hemoglobin Concent 31g/dL (31-37) Red Cell Distribution Width 22.7% (11.5-14.5) Platelet Count 118x10^3/uL (140-400) Neutrophils (%) (Auto) 80% (31-73) Lymphocytes (%) (Auto) 9% (24-48) Monocytes (%) (Auto) 8% (0-9) Eosinophils (%) (Auto) 2% (0-3) Basophils (%) (Auto) 1% (0-3) Neutrophils # (Auto) 5.3x10^3uL (1.8-7.7) Lymphocytes # (Auto) 0.6x10^3/uL (1.0-4.8) Monocytes # (Auto) 0.5x10^3/uL (0.0-1.1) Eosinophils # (Auto) 0.1x10^3/uL (0.0-0.7) Basophils # (Auto) 0.1x10^3/uL (0.0-0.2) Platelet Estimate Decreased (ADEQUATE) Poikilocytosis Mod Anisocytosis Mod Ovalocytes Present [place] Cells Present Schistocytes Occ Prothrombin Time 33.6SEC (11.7-14.0) Prothromb Time International Ratio 3.5 (0.8-1.1) Sodium Level 134mmol/L (136-145) Potassium Level 4.1mmol/L (3.5-5.1) Chloride Level 98mmol/L (98-107) Carbon Dioxide Level 26mmol/L (21-32) Anion Gap 10 (6-14) Blood Urea Nitrogen 34mg/dL (8-26) Creatinine 2.7mg/dL (0.7-1.3) Estimated GFR (Cockcroft-Gault) 28.2 BUN/Creatinine Ratio 13 (6-20) Glucose Level 138mg/dL (70-99) Calcium Level 7.6mg/dL (8.5-10.1) Total Bilirubin 0.6mg/dL (0.2-1.0) Aspartate Amino Transf (AST/SGOT) 20U/L (15-37) Alanine Aminotransferase (ALT/SGPT) 20U/L (16-63) Alkaline Phosphatase 92U/L (46-116) Total Protein 5.9g/dL (6.4-8.2) Albumin 2.8g/dL (3.4-5.0) Albumin/Globulin Ratio 0.9 (1.0-1.7) Test 08/31/16 11:46 Glucose (Fingerstick) 100mg/dL (70-99) Laboratory Tests Test 08/30/16 16:43 08/30/16 20:46 08/31/16 05:30 08/31/16 11:46 Glucose (Fingerstick) 120mg/dL (70-99) 137mg/dL (70-99) 100mg/dL (70-99) White Blood Count 6.6x10^3/uL (4.0-11.0) Red Blood Count 3.79x10^6/uL (4.30-5.70) Hemoglobin 9.8g/dL (13.0-17.5) Hematocrit 31.4% (39.0-53.0) Mean Corpuscular Volume 83fL (79-100) Mean Corpuscular Hemoglobin 26pg (25-35) Mean Corpuscular Hemoglobin Concent 31g/dL (31-37) Red Cell Distribution Width 22.7% (11.5-14.5) Platelet Count 118x10^3/uL (140-400) Neutrophils (%) (Auto) 80% (31-73) Lymphocytes (%) (Auto) 9% (24-48) Monocytes (%) (Auto) 8% (0-9) Eosinophils (%) (Auto) 2% (0-3) Basophils (%) (Auto) 1% (0-3) Neutrophils # (Auto) 5.3x10^3uL (1.8-7.7) Lymphocytes # (Auto) 0.6x10^3/uL (1.0-4.8) Monocytes # (Auto) 0.5x10^3/uL (0.0-1.1) Eosinophils # (Auto) 0.1x10^3/uL (0.0-0.7) Basophils # (Auto) 0.1x10^3/uL (0.0-0.2) Platelet Estimate Decreased (ADEQUATE) Poikilocytosis Mod Anisocytosis Mod Ovalocytes Present [place] Cells Present Schistocytes Occ Prothrombin Time 33.6SEC (11.7-14.0) Prothromb Time International Ratio 3.5 (0.8-1.1) Sodium Level 134mmol/L (136-145) Potassium Level 4.1mmol/L (3.5-5.1) Chloride Level 98mmol/L (98-107) Carbon Dioxide Level 26mmol/L (21-32) Anion Gap 10 (6-14) Blood Urea Nitrogen 34mg/dL (8-26) Creatinine 2.7mg/dL (0.7-1.3) Estimated GFR (Cockcroft-Gault) 28.2 BUN/Creatinine Ratio 13 (6-20) Glucose Level 138mg/dL (70-99) Calcium Level 7.6mg/dL (8.5-10.1) Total Bilirubin 0.6mg/dL (0.2-1.0) Aspartate Amino Transf (AST/SGOT) 20U/L (15-37) Alanine Aminotransferase (ALT/SGPT) 20U/L (16-63) Alkaline Phosphatase 92U/L (46-116) Total Protein 5.9g/dL (6.4-8.2) Albumin 2.8g/dL (3.4-5.0) Albumin/Globulin Ratio 0.9 (1.0-1.7) Microbiology 08/15/16 Urine Culture - Final, Complete 08/15/16 Urine Culture Result 1 (JV) - Final, Complete 08/15/16 Urine Culture Result 2 (JV) - Final, Complete 08/15/16 Antimicrobic Susceptibility - Final, Complete Medications Current Medications Insulin Aspart (Novolog) 0-5 UNITS TIDWMEALS SQ Last administered on 08/30/16 12:00; Start 08/14/16 at 17:30 Dextrose 12.5 gm 12.5 gm PRN Q15MIN PRN IV SEE COMMENTS; Start 08/14/16 at 16: 45 Sodium Chloride (Iv Sodium Chloride 0.9% 1000ml Bag) 1,000 ml @ 100 mls/hr Q10H IV Last administered on 08/14/16 18:53; Start 08/14/16 at 17:30; Stop 08/15/16 at 03:29; Status DC Amiodarone HCl (Cordarone) 200 mg DAILY PO Last administered on 08/31/16 11:42 ; Start 08/15/16 at 09:00 Aspirin (Ecotrin) 81 mg DAILY PO Last administered on 08/31/16 11:42; Start at 09:00 Atorvastatin Calcium (Lipitor) 40 mg QHS PO Last administered on 08/30/16 21: 21; Start 08/14/16 at 21:00 Carvedilol (Coreg) 6.25 mg BIDWMEALS PO Last administered on 08/31/16 11:42; Start 08/14/16 at 17:30 Colestipol HCl (Colestid) 1 gm TID PO Last administered on 08/17/16 20:55; Start 08/14/16 at 21:00; Stop 08/18/16 at 10:08; Status DC Metoclopramide HCl (Reglan) 5 mg PRN BID PRN PO NAUSEA; Start 08/14/16 at 16:45 ; Stop 08/16/16 at 10:25; Status DC Sacubitril/ Valsartan (Entresto 24 Mg-26 Mg) 1 tab BID PO Last administered on 08/17/16 09:14; Start 08/14/16 at 21:00; Stop 08/17/16 at 10:16; Status DC Warfarin Sodium (Coumadin) 2.5 mg DAILY16 PO Last administered on 08/14/16 18: 50; Start 08/14/16 at 18:00; Stop 08/15/16 at 14:13; Status DC Warfarin Sodium (Coumadin Per Physician) 1 each PRN DAILY PRN MC SEE COMMENTS; Start 08/14/16 at 17:15; Stop 08/15/16 at 09:54; Status DC Sodium Polystyrene Sulfonate (Kayexalate) 60 gm 1X ONCE PO Last administered on 08/14/16 18:51; Start 08/14/16 at 18:30; Stop 08/14/16 at 18:31; Status DC Warfarin Sodium (Coumadin Per Pharmacy) 1 each PRN DAILY PRN MC SEE COMMENTS Last administered on 08/30/16 07:52; Start 08/15/16 at 10:00 Pantoprazole Sodium 40 mg 40 mg DAILYAC PO Last administered on 08/31/16 11:42 ; Start 08/15/16 at 11:30 Dobutamine HCl/ Dextrose 250 ml @ 0 mls/hr CONT PRN IV ; Start 08/15/16 at 14:00 ; Stop 08/15/16 at 14:53; Status DC Albumin Human (Albuminar) 100 ml @ 100 mls/hr 1X ONCE IV Last administered on 08/15/16 15:25; Start 08/15/16 at 14:00; Stop 08/15/16 at 14:59; Status DC Furosemide 40 mg 40 mg 1X ONCE IVP Last administered on 08/15/16 16:22; Start 08/15/16 at 15:00; Stop 08/15/16 at 15:01; Status DC Albumin Human (Albuminar) 100 ml @ 100 mls/hr 1X ONCE IV Last administered on 08/16/16 08:41; Start 08/16/16 at 09:00; Stop 08/16/16 at 09:59; Status DC Furosemide (Lasix) 40 mg 1X ONCE IVP Last administered on 08/16/16 09:45; Start 08/16/16 at 10:00; Stop 08/16/16 at 10:01; Status DC Warfarin Sodium 4 mg 4 mg 1X WARF ONCE PO Last administered on 08/15/16 16:33 ; Start 08/15/16 at 16:00; Stop 08/15/16 at 16:01; Status DC Dobutamine HCl/ Dextrose 250 ml @ 0 mls/hr CONT PRN PRN IV SEE I/O RECORD Last administered on 08/30/16 02:39; Start 08/15/16 at 14:53 Sodium Bicarbonate 50 meq 50 meq Q2HR IV Last administered on 08/15/16 18:20; Start 08/15/16 at 16:00; Stop 08/15/16 at 18:30; Status DC Magnesium Sulfate/ Dextrose (Magnesium Sulfate PREMIX 2GM) 50 ml @ 25 mls/hr PRN DAILY PRN IV for Mag < 1.7 on am labs; Start 08/15/16 at 15:30 Warfarin Sodium (Coumadin) 4 mg 1X WARF ONCE PO Last administered on 08/16/16 17:28; Start 08/16/16 at 16:00; Stop 08/16/16 at 16:01; Status DC Ondansetron HCl 4 mg 4 mg PRN Q6HRS PRN IV nausea Last administered on 00:53; Start 08/16/16 at 20:30 Ceftriaxone Sodium 1 gm/ Sodium Chloride 50 ml @ 100 mls/hr Q24H IV Last administered on 08/19/16 10:00; Start 08/17/16 at 10:00; Stop 08/19/16 at 12:56; Status DC Sodium Chloride (Iv Sodium Chloride 0.9% 1000ml Bag) 1,000 ml @ 75 mls/hr [id number] IV Last administered on 08/19/16 16:58; Start 08/17/16 at 10:15; Stop at 09:27; Status DC Warfarin Sodium (Coumadin) 5 mg 1X WARF ONCE PO ; Start 08/17/16 at 16:00; Stop 08/17/16 at 16:01; Status DC Heparin Sodium/ Sodium Chloride 1,000 unit 1X ONCE IART Last administered on 11:45; Start 08/18/16 at 11:30; Stop 08/18/16 at 11:31; Status DC Midazolam HCl (Versed) 2 mg 1X ONCE IV Last administered on 08/18/16 11:46; Start 08/18/16 at 11:30; Stop 08/18/16 at 11:31; Status DC Fentanyl Citrate (Fentanyl 2ml Vial) 100 mcg 1X ONCE IV Last administered on 11:47; Start 08/18/16 at 11:30; Stop 08/18/16 at 11:31; Status DC Lidocaine/ Epinephrine 15 ml 15 ml 1X ONCE IJ Last administered on 08/18/16 11 :44; Start 08/18/16 at 11:30; Stop 08/18/16 at 11:31; Status DC Vancomycin HCl 250 ml @ 250 mls/hr 1X ONCE IRR Last administered on 08/18/16 11:45; Start 08/18/16 at 11:30; Stop 08/18/16 at 12:29; Status DC Heparin Sodium (Porcine) (Hep Lock Adult) 500 unit 1X ONCE IV Last administered on 08/18/16 11:46; Start 08/18/16 at 11:30; Stop 08/18/16 at 11:31; Status DC Heparin Sodium (Porcine) (Hep Lock Adult) 500 unit STK-MED ONCE IV ; Start at 09:29; Stop 08/18/16 at 11:42; Status DC Lidocaine/ Epinephrine 20 ml 20 ml STK-MED ONCE .ROUTE ; Start 08/18/16 at 09:29 ; Stop 08/18/16 at 11:42; Status DC Heparin Sodium/ Sodium Chloride 500 ml @ As Directed STK-MED ONCE .ROUTE ; Start 08/18/16 at 09:29; Stop 08/18/16 at 11:42; Status DC Vancomycin HCl 250 ml @ As Directed STK-MED ONCE .ROUTE ; Start 08/18/16 at 09: 29; Stop 08/18/16 at 11:42; Status DC Fentanyl Citrate (Fentanyl 2ml Vial) 100 mcg STK-MED ONCE .ROUTE ; Start at 10:29; Stop 08/18/16 at 11:43; Status DC Midazolam HCl 2 mg 2 mg STK-MED ONCE .ROUTE ; Start 08/18/16 at 10:30; Stop at 11:43; Status DC Iron Sucrose/ Sodium Chloride (Venofer/Iv Sodium Chloride 0.9% 100ml) 110 ml @ 55 mls/hr 3X/WEEK IV Last administered on 08/28/16 09:10; Start 08/19/16 at 09: 00; Stop 08/28/16 at 10:59; Status DC Warfarin Sodium (Coumadin) 5 mg 1X WARF ONCE PO Last administered on 08/18/16 17:56; Start 08/18/16 at 16:00; Stop 08/18/16 at 16:01; Status DC Warfarin Sodium (Coumadin) 3 mg 1X WARF ONCE PO ; Start 08/19/16 at 16:00; Stop 08/19/16 at 16:01; Status Cancel Cefpodoxime Proxetil (Vantin) 100 mg BID PO Last administered on 08/26/16 20: 40; Start 08/19/16 at 21:00; Stop 08/26/16 at 21:01; Status DC Warfarin Sodium (Coumadin) 2.5 mg 1X WARF ONCE PO Last administered on 16:59; Start 08/19/16 at 16:00; Stop 08/19/16 at 16:01; Status DC Senna/Docusate Sodium 1 tab 1 tab PRN BID PRN PO CONSTIPATION Last administered on 08/20/16 14:18; Start 08/19/16 at 13:30; Stop 08/20/16 at 14:43; Status DC Sodium Chloride 250 ml @ 0 mls/hr 1X ONCE IV Last administered on 08/19/16 14: 33; Start 08/19/16 at 13:45; Stop 08/19/16 at 13:53; Status DC Sodium Chloride (Iv Sodium Chloride 0.9% 500ml Bag) 500 ml @ 0 mls/hr 1X ONCE IV Last administered on 08/19/16 16:58; Start 08/19/16 at 16:00; Stop 08/19/16 at 16:01; Status DC Senna/Docusate Sodium (Senna Plus) 1 tab PRN BID PRN PO CONSTIPATION Last administered on 08/28/16 16:20; Start 08/20/16 at 10:00 Bisacodyl (Dulcolax Supp) 10 mg 1X ONCE [place] ; Start 08/20/16 at 11:00; Stop at 11:00; Status DC Bisacodyl (Dulcolax Supp) 10 mg 1X ONCE [place] Last administered on 08/20/16 16:49 ; Start 08/20/16 at 14:30; Stop 08/20/16 at 14:31; Status DC Warfarin Sodium (Coumadin) 2 mg 1X WARF ONCE PO Last administered on 08/20/16 16:48; Start 08/20/16 at 16:00; Stop 08/20/16 at 16:01; Status DC Mineral Oil (Fleet Mineral Oil) 133 ml 1X ONCE [place] ; Start 08/21/16 at 20:00; Stop 08/21/16 at 20:00; Status DC Non-Formulary Medication 1 ea Q4H PO Last administered on 08/21/16 16:18; Start 08/21/16 at 12:00; Stop 08/21/16 at 16:01; Status DC Sodium Bicarbonate 50 meq Q6H IV Last administered on 08/21/16 20:16; Start 08/21/16 at 14:00; Stop 08/21/16 at 20:01; Status DC Warfarin Sodium (Coumadin) 3 mg 1X WARF ONCE PO Last administered on 08/21/16 16:16; Start 08/21/16 at 16:00; Stop 08/21/16 at 16:01; Status DC Warfarin Sodium (Coumadin) 2.5 mg 1X WARF ONCE PO Last administered on 16:00; Start 08/22/16 at 16:00; Stop 08/22/16 at 16:01; Status DC Warfarin Sodium (Coumadin) 3 mg 1X WARF ONCE PO Last administered on 08/23/16 18:28; Start 08/23/16 at 16:00; Stop 08/23/16 at 16:01; Status DC Lidocaine/ Epinephrine (Xylocaine 2%-Epi 1:100,000) 20 ml STK-MED ONCE .ROUTE ; Start 08/24/16 at 10:54; Stop 08/24/16 at 10:55; Status DC Heparin Sodium (Porcine) 07517 unit 10,000 unit STK-MED ONCE .ROUTE ; Start 03/02 at 10:54; Stop 08/24/16 at 10:55; Status DC Heparin Sodium/ Sodium Chloride 500 ml @ As Directed STK-MED ONCE .ROUTE ; Start 08/24/16 at 10:54; Stop 08/24/16 at 10:55; Status DC Darbepoetin Dino (Aranesp) 60 mcg WEEKLYHS SQ Last administered on 08/24/16 20 :59; Start 08/24/16 at 21:00 Fentanyl Citrate (Fentanyl 2ml Vial) 100 mcg STK-MED ONCE .ROUTE ; Start at 11:26; Stop 08/24/16 at 11:27; Status DC Midazolam HCl 2 mg 2 mg STK-MED ONCE .ROUTE ; Start 08/24/16 at 11:26; Stop 03/02 at 11:27; Status DC Cefazolin Sodium (Ancef 1gm Ivpb For Omni) 0 ml @ As Directed STK-MED ONCE IV ; Start 08/24/16 at 11:26; Stop 08/24/16 at 11:27; Status DC Heparin Sodium/ Sodium Chloride 1,000 unit 1X ONCE IART Last administered on 12:23; Start 08/24/16 at 11:45; Stop 08/24/16 at 11:46; Status DC Lidocaine/ Epinephrine (Xylocaine 2%-Epi 1:100,000) 20 ml 1X ONCE IJ Last administered on 08/24/16 12:23; Start 08/24/16 at 11:45; Stop 08/24/16 at 11:46 ; Status DC Fentanyl Citrate (Fentanyl 2ml Vial) 100 mcg STK-MED ONCE .ROUTE ; Start at 11:58; Stop 08/24/16 at 11:59; Status DC Midazolam HCl (Versed) 2 mg STK-MED ONCE .ROUTE ; Start 08/24/16 at 11:58; Stop 08/24/16 at 11:59; Status DC Heparin Sodium (Porcine) (Heparin Sodium) 4,300 unit 1X ONCE IV Last administered on 08/24/16 12:15; Start 08/24/16 at 12:15; Stop 08/24/16 at 12:21 ; Status DC Midazolam HCl (Versed) 2 mg 1X ONCE IV Last administered on 08/24/16 12:30; Start 08/24/16 at 12:30; Stop 08/24/16 at 12:31; Status DC Fentanyl Citrate 100 mcg 100 mcg 1X ONCE IV Last administered on 08/24/16 12: 30; Start 08/24/16 at 12:30; Stop 08/24/16 at 12:31; Status DC Cefazolin Sodium (Ancef 1gm Ivpb For Omni) 50 ml @ 100 mls/hr 1X ONCE IV Last administered on 08/24/16 12:29; Start 08/24/16 at 12:30; Stop 08/24/16 at 12:59; Status DC Warfarin Sodium (Coumadin) 4 mg 1X WARF ONCE PO Last administered on 18:08; Start 08/24/16 at 16:00; Stop 08/24/16 at 16:01; Status DC Mineral Oil (Fleet Mineral Oil) 133 ml PRN DAILY PRN [place] CONSTIPATION; Start 03/02 at 19:30 Info (PHARMACY MONITORING -- do not chart) 1 each PRN DAILY PRN MC SEE COMMENTS ; Start 08/25/16 at 12:45; Stop 08/27/16 at 13:18; Status DC Info (PHARMACY MONITORING -- do not chart) 1 each PRN DAILY PRN MC SEE COMMENTS ; Start 08/25/16 at 12:45; Stop 08/27/16 at 13:18; Status DC Warfarin Sodium (Coumadin) 4 mg 1X WARF ONCE PO Last administered on 16:11; Start 08/25/16 at 16:00; Stop 08/25/16 at 16:01; Status DC Tramadol HCl (Ultram) 50 mg PRN TID PRN PO PAIN Last administered on 08/29/16 19:58; Start 08/25/16 at 15:45 Info (PHARMACY MONITORING -- do not chart) 1 each PRN DAILY PRN MC SEE COMMENTS ; Start 08/26/16 at 06:45; Stop 08/27/16 at 13:18; Status DC Warfarin Sodium (Coumadin) 4 mg 1X WARF ONCE PO Last administered on 17:13; Start 08/26/16 at 16:00; Stop 08/26/16 at 16:01; Status DC Info (PHARMACY MONITORING -- do not chart) 1 each PRN DAILY PRN MC SEE COMMENTS ; Start 08/27/16 at 08:00; Status UNV Info (PHARMACY MONITORING -- do not chart) 1 each PRN DAILY PRN MC SEE COMMENTS ; Start 08/27/16 at 08:00 Warfarin Sodium (Coumadin) 4 mg 1X WARF ONCE PO Last administered on 18:32; Start 08/27/16 at 16:00; Stop 08/27/16 at 16:01; Status DC Warfarin Sodium 3 mg 3 mg 1X WARF ONCE PO Last administered on 08/28/16 17:15 ; Start 08/28/16 at 16:00; Stop 08/28/16 at 16:01; Status DC Sodium Chloride (Iv Sodium Chloride 0.9% 1000ml Bag) 1,000 ml @ 1,000 mls/hr Q1H PRN IV hypotension; Start 08/28/16 at 10:42; Stop 08/28/16 at 16:41; Status DC Sodium Chloride (Normal Saline Flush) 10 ml 1X PRN PRN IV AP catheter pack; Start 08/28/16 at 10:45; Stop 08/29/16 at 10:44; Status DC Sodium Chloride (Normal Saline Flush) 10 ml 1X PRN PRN IV BURLAP MAN catheter pack; Start 08/28/16 at 10:45; Stop 08/29/16 at 10:44; Status DC Info (PHARMACY MONITORING -- do not chart) 1 each PRN DAILY PRN MC SEE COMMENTS ; Start 08/28/16 at 10:45; Status UNV Info (PHARMACY MONITORING -- do not chart) 1 each PRN DAILY PRN MC SEE COMMENTS ; Start 08/28/16 at 10:45; Status UNV Warfarin Sodium (Coumadin) 2.5 mg 1X WARF ONCE PO Last administered on 17:00; Start 08/29/16 at 16:00; Stop 08/29/16 at 16:01; Status DC Warfarin Sodium (Coumadin) 2 mg 1X WARF ONCE PO Last administered on 17:58; Start 08/30/16 at 16:00; Stop 08/30/16 at 16:01; Status DC Artificial Tears (Artificial Tears) 1 drop PRN Q15MIN PRN OU DRY EYE Last administered on 08/30/16 21:21; Start 08/30/16 at 18:00 Info (PHARMACY MONITORING -- do not chart) 1 each PRN DAILY PRN MC SEE COMMENTS ; Start 08/31/16 at 08:15 Info (PHARMACY MONITORING -- do not chart) 1 each PRN DAILY PRN MC SEE COMMENTS ; Start 08/31/16 at 08:15; Status UNV Active Scripts Active Entresto 24 mg-26 mg Tablet (Sacubitril/Valsartan) 1 Each Tablet 1 Tab PO BID Coumadin (Warfarin Sodium) 2.5 Mg Tablet 2.5 Mg PO DAILY16 Reported Reglan (Metoclopramide Hcl) 10 Mg Tablet 5 Mg PO PRN BID PRN Atorvastatin Calcium 40 Mg Tablet 1 Tab PO DAILY Colestid (Colestipol Hcl) 1 Gm Tablet 1 Gm PO TID Pacerone (Amiodarone Hcl) 200 Mg Tablet 200 Mg PO DAILY Lasix (Furosemide) 80 Mg Tablet 1 Tab PO BID Gabapentin 100 Mg Capsule 1 Cap PO TID Aspir 81 (Aspirin) 81 Mg Tablet.dr 1 Tab PO DAILY Coreg (Carvedilol) 6.25 Mg Tablet 1 Tab PO BID K-Tab ER (Potassium Chloride) 20 Meq Tablet.er 20 Meq PO BID Vitals/I & O Vital Sign - Last 24 Hours 08/30/16 08/30/16 08/30/16 08/30/16 14:31 17:58 19:25 19:25 Temp 97.6 98.2 97.6 98.2 Pulse 63 65 63 Resp 18 16 B/P 97/58 100/59 92/55 Pulse Ox 96 95 O2 Delivery Room Air Room Air Room Air O2 Flow Rate 2.0 08/30/16 08/31/16 08/31/16 08/31/16 23:00 03:46 07:40 11:42 Temp 97.8 97.7 97.8 97.7 Pulse 102 65 65 Resp 16 16 B/P 114/48 94/56 94/56 Pulse Ox 95 100 O2 Delivery Room Air Room Air Room Air O2 Flow Rate 2.0 08/31/16 08/31/16 11:42 11:45 Temp 97.9 97.9 Pulse 65 68 Resp 18 B/P 94/56 104/50 Pulse Ox 95 O2 Delivery Room Air Intake and Output 08/30/16 08/30/16 08/31/16 15:00 23:00 07:00 Intake Total 120 ml 400 ml 210 ml Output Total 100 ml Balance 120 ml 400 ml 110 ml HEATHER CHERRY MD Aug 31, 2016 12:17
[2016-08-31 14:46] VITALS: BP 91/50
[2016-08-31 19:26] VITALS: BP 97/55
[2016-08-31] MEDS: DARBEPOETIN ALFA 60 MCG/0.3 ML DISP.SYRIN. SQ SCH (21:27)
[2016-08-31] MEDS: ATORVASTATIN CALCIUM 40 MG TABLET. PO SCH (21:27)
[2016-08-31 23:01] VITALS: BP 101/61
[2016-09-01 03:00] VITALS: BP 111/56
[2016-09-01 05:24] LABS: INR 2.9 (0.8-1.1); PROTHROMBIN TIME PATIENT 28.5 SEC (11.7-14.0)
[2016-09-01 07:00] VITALS: BP 97/55
[2016-09-01] MEDS: INSULIN ASPART 300 UNITS/3 ML INSULN.PEN SQ SCH ×3 (08:00→17:00)
[2016-09-01] MEDS: AMIODARONE HCL 200 MG TABLET. PO SCH (08:59)
[2016-09-01] MEDS: CARVEDILOL 6.25 MG TABLET. PO SCH ×2 (08:59→17:48)
[2016-09-01] MEDS: PANTOPRAZOLE 40 MG TABLET.DR. PO SCH (08:59)
[2016-09-01] MEDS: ASPIRIN ENTERIC COATED 81 MG TABLET.DR. PO SCH (08:59)
--- NOTE | 2016-09-01 09:19 | PDOC ---
PROGRESS NOTES Subjective Subjective She had no new complaints. Objective Objective Vital Signs Date Time Temp Pulse Resp B/P Pulse Ox O2 Delivery O2 Flow Rate FiO2 09/01/16 08:59 65 97/55 09/01/16 07:40 Room Air 2.0 09/01/16 07:00 98.1 19 98 98.1 Intake and Output 09/01/16 07:00 Intake Total 650 ml Output Total 100 ml Balance 550 ml Intake Oral 650 ml Output Urine Total 100 ml Physical Exam Physical Exam She is alert,sitting up in chair with PRAFO boot in place to right foot and Rooke boot to left foot. Assessment Assessment Problems Medical Problems: (1) Acute on chronic renal failure Status: Acute Plan Plan of Care To her daughter's home in [facility] when arrangements are completed. Comment Review of Relevant I have reviewed the following items marquise (where applicable) has been applied. Labs Laboratory Tests Test 08/30/16 10:34 08/30/16 16:43 08/30/16 20:46 08/31/16 05:30 Glucose (Fingerstick) 151mg/dL (70-99) 120mg/dL (70-99) 137mg/dL (70-99) White Blood Count 6.6x10^3/uL (4.0-11.0) Red Blood Count 3.79x10^6/uL (4.30-5.70) Hemoglobin 9.8g/dL (13.0-17.5) Hematocrit 31.4% (39.0-53.0) Mean Corpuscular Volume 83fL (79-100) Mean Corpuscular Hemoglobin 26pg (25-35) Mean Corpuscular Hemoglobin Concent 31g/dL (31-37) Red Cell Distribution Width 22.7% (11.5-14.5) Platelet Count 118x10^3/uL (140-400) Neutrophils (%) (Auto) 80% (31-73) Lymphocytes (%) (Auto) 9% (24-48) Monocytes (%) (Auto) 8% (0-9) Eosinophils (%) (Auto) 2% (0-3) Basophils (%) (Auto) 1% (0-3) Neutrophils # (Auto) 5.3x10^3uL (1.8-7.7) Lymphocytes # (Auto) 0.6x10^3/uL (1.0-4.8) Monocytes # (Auto) 0.5x10^3/uL (0.0-1.1) Eosinophils # (Auto) 0.1x10^3/uL (0.0-0.7) Basophils # (Auto) 0.1x10^3/uL (0.0-0.2) Platelet Estimate Decreased (ADEQUATE) Poikilocytosis Mod Anisocytosis Mod Ovalocytes Present Olga Cells Present Schistocytes Occ Prothrombin Time 33.6SEC (11.7-14.0) Prothromb Time International Ratio 3.5 (0.8-1.1) Sodium Level 134mmol/L (136-145) Potassium Level 4.1mmol/L (3.5-5.1) Chloride Level 98mmol/L (98-107) Carbon Dioxide Level 26mmol/L (21-32) Anion Gap 10 (6-14) Blood Urea Nitrogen 34mg/dL (8-26) Creatinine 2.7mg/dL (0.7-1.3) Estimated GFR (Cockcroft-Gault) 28.2 BUN/Creatinine Ratio 13 (6-20) Glucose Level 138mg/dL (70-99) Calcium Level 7.6mg/dL (8.5-10.1) Total Bilirubin 0.6mg/dL (0.2-1.0) Aspartate Amino Transf (AST/SGOT) 20U/L (15-37) Alanine Aminotransferase (ALT/SGPT) 20U/L (16-63) Alkaline Phosphatase 92U/L (46-116) Total Protein 5.9g/dL (6.4-8.2) Albumin 2.8g/dL (3.4-5.0) Albumin/Globulin Ratio 0.9 (1.0-1.7) Test 08/31/16 11:46 08/31/16 17:12 08/31/16 21:17 09/01/16 05:00 Glucose (Fingerstick) 100mg/dL (70-99) 135mg/dL (70-99) 135mg/dL (70-99) Prothrombin Time 28.5SEC (11.7-14.0) Prothromb Time International Ratio 2.9 (0.8-1.1) Test 09/01/16 07:53 Glucose (Fingerstick) 116mg/dL (70-99) Laboratory Tests Test 08/31/16 11:46 08/31/16 17:12 08/31/16 21:17 09/01/16 05:00 Glucose (Fingerstick) 100mg/dL (70-99) 135mg/dL (70-99) 135mg/dL (70-99) Prothrombin Time 28.5SEC (11.7-14.0) Prothromb Time International Ratio 2.9 (0.8-1.1) Test 09/01/16 07:53 Glucose (Fingerstick) 116mg/dL (70-99) Microbiology 08/15/16 Urine Culture - Final, Complete 08/15/16 Urine Culture Result 1 (JV) - Final, Complete 08/15/16 Urine Culture Result 2 (JV) - Final, Complete 08/15/16 Antimicrobic Susceptibility - Final, Complete Medications Current Medications Insulin Aspart (Novolog) 0-5 UNITS TIDWMEALS SQ Last administered on 08/30/16 12:00; Start 08/14/16 at 17:30 Dextrose 12.5 gm 12.5 gm PRN Q15MIN PRN IV SEE COMMENTS; Start 08/14/16 at 16: 45 Sodium Chloride (Iv Sodium Chloride 0.9% 1000ml Bag) 1,000 ml @ 100 mls/hr Q10H IV Last administered on 08/14/16 18:53; Start 08/14/16 at 17:30; Stop 08/15/16 at 03:29; Status DC Amiodarone HCl (Cordarone) 200 mg DAILY PO Last administered on 09/01/16 08:59 ; Start 08/15/16 at 09:00 Aspirin (Ecotrin) 81 mg DAILY PO Last administered on 09/01/16 08:59; Start at 09:00 Atorvastatin Calcium (Lipitor) 40 mg QHS PO Last administered on 08/31/16 21: 27; Start 08/14/16 at 21:00 Carvedilol (Coreg) 6.25 mg BIDWMEALS PO Last administered on 09/01/16 08:59; Start 08/14/16 at 17:30 Colestipol HCl (Colestid) 1 gm TID PO Last administered on 08/17/16 20:55; Start 08/14/16 at 21:00; Stop 08/18/16 at 10:08; Status DC Metoclopramide HCl (Reglan) 5 mg PRN BID PRN PO NAUSEA; Start 08/14/16 at 16:45 ; Stop 08/16/16 at 10:25; Status DC Sacubitril/ Valsartan (Entresto 24 Mg-26 Mg) 1 tab BID PO Last administered on 08/17/16 09:14; Start 08/14/16 at 21:00; Stop 08/17/16 at 10:16; Status DC Warfarin Sodium (Coumadin) 2.5 mg DAILY16 PO Last administered on 08/14/16 18: 50; Start 08/14/16 at 18:00; Stop 08/15/16 at 14:13; Status DC Warfarin Sodium (Coumadin Per Physician) 1 each PRN DAILY PRN MC SEE COMMENTS; Start 08/14/16 at 17:15; Stop 08/15/16 at 09:54; Status DC Sodium Polystyrene Sulfonate (Kayexalate) 60 gm 1X ONCE PO Last administered on 08/14/16 18:51; Start 08/14/16 at 18:30; Stop 08/14/16 at 18:31; Status DC Warfarin Sodium (Coumadin Per Pharmacy) 1 each PRN DAILY PRN MC SEE COMMENTS Last administered on 08/31/16 13:33; Start 08/15/16 at 10:00 Pantoprazole Sodium 40 mg 40 mg DAILYAC PO Last administered on 09/01/16 08:59 ; Start 08/15/16 at 11:30 Dobutamine HCl/ Dextrose 250 ml @ 0 mls/hr CONT PRN IV ; Start 08/15/16 at 14:00 ; Stop 08/15/16 at 14:53; Status DC Albumin Human (Albuminar) 100 ml @ 100 mls/hr 1X ONCE IV Last administered on 08/15/16 15:25; Start 08/15/16 at 14:00; Stop 08/15/16 at 14:59; Status DC Furosemide 40 mg 40 mg 1X ONCE IVP Last administered on 08/15/16 16:22; Start 08/15/16 at 15:00; Stop 08/15/16 at 15:01; Status DC Albumin Human (Albuminar) 100 ml @ 100 mls/hr 1X ONCE IV Last administered on 08/16/16 08:41; Start 08/16/16 at 09:00; Stop 08/16/16 at 09:59; Status DC Furosemide (Lasix) 40 mg 1X ONCE IVP Last administered on 08/16/16 09:45; Start 08/16/16 at 10:00; Stop 08/16/16 at 10:01; Status DC Warfarin Sodium 4 mg 4 mg 1X WARF ONCE PO Last administered on 08/15/16 16:33 ; Start 08/15/16 at 16:00; Stop 08/15/16 at 16:01; Status DC Dobutamine HCl/ Dextrose 250 ml @ 0 mls/hr CONT PRN PRN IV SEE I/O RECORD Last administered on 08/31/16 22:13; Start 08/15/16 at 14:53 Sodium Bicarbonate 50 meq 50 meq Q2HR IV Last administered on 08/15/16 18:20; Start 08/15/16 at 16:00; Stop 08/15/16 at 18:30; Status DC Magnesium Sulfate/ Dextrose (Magnesium Sulfate PREMIX 2GM) 50 ml @ 25 mls/hr PRN DAILY PRN IV for Mag < 1.7 on am labs; Start 08/15/16 at 15:30 Warfarin Sodium (Coumadin) 4 mg 1X WARF ONCE PO Last administered on 08/16/16 17:28; Start 08/16/16 at 16:00; Stop 08/16/16 at 16:01; Status DC Ondansetron HCl 4 mg 4 mg PRN Q6HRS PRN IV nausea Last administered on 00:53; Start 08/16/16 at 20:30 Ceftriaxone Sodium 1 gm/ Sodium Chloride 50 ml @ 100 mls/hr Q24H IV Last administered on 08/19/16 10:00; Start 08/17/16 at 10:00; Stop 08/19/16 at 12:56; Status DC Sodium Chloride (Iv Sodium Chloride 0.9% 1000ml Bag) 1,000 ml @ 75 mls/hr [id number] IV Last administered on 08/19/16 16:58; Start 08/17/16 at 10:15; Stop at 09:27; Status DC Warfarin Sodium (Coumadin) 5 mg 1X WARF ONCE PO ; Start 08/17/16 at 16:00; Stop 08/17/16 at 16:01; Status DC Heparin Sodium/ Sodium Chloride 1,000 unit 1X ONCE IART Last administered on 11:45; Start 08/18/16 at 11:30; Stop 08/18/16 at 11:31; Status DC Midazolam HCl (Versed) 2 mg 1X ONCE IV Last administered on 08/18/16 11:46; Start 08/18/16 at 11:30; Stop 08/18/16 at 11:31; Status DC Fentanyl Citrate (Fentanyl 2ml Vial) 100 mcg 1X ONCE IV Last administered on 11:47; Start 08/18/16 at 11:30; Stop 08/18/16 at 11:31; Status DC Lidocaine/ Epinephrine 15 ml 15 ml 1X ONCE IJ Last administered on 08/18/16 11 :44; Start 08/18/16 at 11:30; Stop 08/18/16 at 11:31; Status DC Vancomycin HCl 250 ml @ 250 mls/hr 1X ONCE IRR Last administered on 08/18/16 11:45; Start 08/18/16 at 11:30; Stop 08/18/16 at 12:29; Status DC Heparin Sodium (Porcine) (Hep Lock Adult) 500 unit 1X ONCE IV Last administered on 08/18/16 11:46; Start 08/18/16 at 11:30; Stop 08/18/16 at 11:31; Status DC Heparin Sodium (Porcine) (Hep Lock Adult) 500 unit STK-MED ONCE IV ; Start at 09:29; Stop 08/18/16 at 11:42; Status DC Lidocaine/ Epinephrine 20 ml 20 ml STK-MED ONCE .ROUTE ; Start 08/18/16 at 09:29 ; Stop 08/18/16 at 11:42; Status DC Heparin Sodium/ Sodium Chloride 500 ml @ As Directed STK-MED ONCE .ROUTE ; Start 08/18/16 at 09:29; Stop 08/18/16 at 11:42; Status DC Vancomycin HCl 250 ml @ As Directed STK-MED ONCE .ROUTE ; Start 08/18/16 at 09: 29; Stop 08/18/16 at 11:42; Status DC Fentanyl Citrate (Fentanyl 2ml Vial) 100 mcg STK-MED ONCE .ROUTE ; Start at 10:29; Stop 08/18/16 at 11:43; Status DC Midazolam HCl 2 mg 2 mg STK-MED ONCE .ROUTE ; Start 08/18/16 at 10:30; Stop at 11:43; Status DC Iron Sucrose/ Sodium Chloride (Venofer/Iv Sodium Chloride 0.9% 100ml) 110 ml @ 55 mls/hr 3X/WEEK IV Last administered on 08/28/16 09:10; Start 08/19/16 at 09: 00; Stop 08/28/16 at 10:59; Status DC Warfarin Sodium (Coumadin) 5 mg 1X WARF ONCE PO Last administered on 08/18/16 17:56; Start 08/18/16 at 16:00; Stop 08/18/16 at 16:01; Status DC Warfarin Sodium (Coumadin) 3 mg 1X WARF ONCE PO ; Start 08/19/16 at 16:00; Stop 08/19/16 at 16:01; Status Cancel Cefpodoxime Proxetil (Vantin) 100 mg BID PO Last administered on 08/26/16 20: 40; Start 08/19/16 at 21:00; Stop 08/26/16 at 21:01; Status DC Warfarin Sodium (Coumadin) 2.5 mg 1X WARF ONCE PO Last administered on 16:59; Start 08/19/16 at 16:00; Stop 08/19/16 at 16:01; Status DC Senna/Docusate Sodium 1 tab 1 tab PRN BID PRN PO CONSTIPATION Last administered on 08/20/16 14:18; Start 08/19/16 at 13:30; Stop 08/20/16 at 14:43; Status DC Sodium Chloride 250 ml @ 0 mls/hr 1X ONCE IV Last administered on 08/19/16 14: 33; Start 08/19/16 at 13:45; Stop 08/19/16 at 13:53; Status DC Sodium Chloride (Iv Sodium Chloride 0.9% 500ml Bag) 500 ml @ 0 mls/hr 1X ONCE IV Last administered on 08/19/16 16:58; Start 08/19/16 at 16:00; Stop 08/19/16 at 16:01; Status DC Senna/Docusate Sodium (Senna Plus) 1 tab PRN BID PRN PO CONSTIPATION Last administered on 08/28/16 16:20; Start 08/20/16 at 10:00 Bisacodyl (Dulcolax Supp) 10 mg 1X ONCE CA ; Start 08/20/16 at 11:00; Stop at 11:00; Status DC Bisacodyl (Dulcolax Supp) 10 mg 1X ONCE CA Last administered on 08/20/16 16:49 ; Start 08/20/16 at 14:30; Stop 08/20/16 at 14:31; Status DC Warfarin Sodium (Coumadin) 2 mg 1X WARF ONCE PO Last administered on 08/20/16 16:48; Start 08/20/16 at 16:00; Stop 08/20/16 at 16:01; Status DC Mineral Oil (Fleet Mineral Oil) 133 ml 1X ONCE CA ; Start 08/21/16 at 20:00; Stop 08/21/16 at 20:00; Status DC Non-Formulary Medication 1 ea Q4H PO Last administered on 08/21/16 16:18; Start 08/21/16 at 12:00; Stop 08/21/16 at 16:01; Status DC Sodium Bicarbonate 50 meq Q6H IV Last administered on 08/21/16 20:16; Start 08/21/16 at 14:00; Stop 08/21/16 at 20:01; Status DC Warfarin Sodium (Coumadin) 3 mg 1X WARF ONCE PO Last administered on 08/21/16 16:16; Start 08/21/16 at 16:00; Stop 08/21/16 at 16:01; Status DC Warfarin Sodium (Coumadin) 2.5 mg 1X WARF ONCE PO Last administered on 16:00; Start 08/22/16 at 16:00; Stop 08/22/16 at 16:01; Status DC Warfarin Sodium (Coumadin) 3 mg 1X WARF ONCE PO Last administered on 08/23/16 18:28; Start 08/23/16 at 16:00; Stop 08/23/16 at 16:01; Status DC Lidocaine/ Epinephrine (Xylocaine 2%-Epi 1:100,000) 20 ml STK-MED ONCE .ROUTE ; Start 08/24/16 at 10:54; Stop 08/24/16 at 10:55; Status DC Heparin Sodium (Porcine) 86970 unit 10,000 unit STK-MED ONCE .ROUTE ; Start 03/02 at 10:54; Stop 08/24/16 at 10:55; Status DC Heparin Sodium/ Sodium Chloride 500 ml @ As Directed STK-MED ONCE .ROUTE ; Start 08/24/16 at 10:54; Stop 08/24/16 at 10:55; Status DC Darbepoetin Dino (Aranesp) 60 mcg WEEKLYHS SQ Last administered on 08/31/16 21 :27; Start 08/24/16 at 21:00 Fentanyl Citrate (Fentanyl 2ml Vial) 100 mcg STK-MED ONCE .ROUTE ; Start at 11:26; Stop 08/24/16 at 11:27; Status DC Midazolam HCl 2 mg 2 mg STK-MED ONCE .ROUTE ; Start 08/24/16 at 11:26; Stop 03/02 at 11:27; Status DC Cefazolin Sodium (Ancef 1gm Ivpb For Omni) 0 ml @ As Directed STK-MED ONCE IV ; Start 08/24/16 at 11:26; Stop 08/24/16 at 11:27; Status DC Heparin Sodium/ Sodium Chloride 1,000 unit 1X ONCE IART Last administered on 12:23; Start 08/24/16 at 11:45; Stop 08/24/16 at 11:46; Status DC Lidocaine/ Epinephrine (Xylocaine 2%-Epi 1:100,000) 20 ml 1X ONCE IJ Last administered on 08/24/16 12:23; Start 08/24/16 at 11:45; Stop 08/24/16 at 11:46 ; Status DC Fentanyl Citrate (Fentanyl 2ml Vial) 100 mcg STK-MED ONCE .ROUTE ; Start at 11:58; Stop 08/24/16 at 11:59; Status DC Midazolam HCl (Versed) 2 mg STK-MED ONCE .ROUTE ; Start 08/24/16 at 11:58; Stop 08/24/16 at 11:59; Status DC Heparin Sodium (Porcine) (Heparin Sodium) 4,300 unit 1X ONCE IV Last administered on 08/24/16 12:15; Start 08/24/16 at 12:15; Stop 08/24/16 at 12:21 ; Status DC Midazolam HCl (Versed) 2 mg 1X ONCE IV Last administered on 08/24/16 12:30; Start 08/24/16 at 12:30; Stop 08/24/16 at 12:31; Status DC Fentanyl Citrate 100 mcg 100 mcg 1X ONCE IV Last administered on 08/24/16 12: 30; Start 08/24/16 at 12:30; Stop 08/24/16 at 12:31; Status DC Cefazolin Sodium (Ancef 1gm Ivpb For Omni) 50 ml @ 100 mls/hr 1X ONCE IV Last administered on 08/24/16 12:29; Start 08/24/16 at 12:30; Stop 08/24/16 at 12:59; Status DC Warfarin Sodium (Coumadin) 4 mg 1X WARF ONCE PO Last administered on 18:08; Start 08/24/16 at 16:00; Stop 08/24/16 at 16:01; Status DC Mineral Oil (Fleet Mineral Oil) 133 ml PRN DAILY PRN CA CONSTIPATION; Start 03/02 at 19:30 Info (PHARMACY MONITORING -- do not chart) 1 each PRN DAILY PRN MC SEE COMMENTS ; Start 08/25/16 at 12:45; Stop 08/27/16 at 13:18; Status DC Info (PHARMACY MONITORING -- do not chart) 1 each PRN DAILY PRN MC SEE COMMENTS ; Start 08/25/16 at 12:45; Stop 08/27/16 at 13:18; Status DC Warfarin Sodium (Coumadin) 4 mg 1X WARF ONCE PO Last administered on 16:11; Start 08/25/16 at 16:00; Stop 08/25/16 at 16:01; Status DC Tramadol HCl (Ultram) 50 mg PRN TID PRN PO PAIN Last administered on 08/29/16 19:58; Start 08/25/16 at 15:45 Info (PHARMACY MONITORING -- do not chart) 1 each PRN DAILY PRN MC SEE COMMENTS ; Start 08/26/16 at 06:45; Stop 08/27/16 at 13:18; Status DC Warfarin Sodium (Coumadin) 4 mg 1X WARF ONCE PO Last administered on 17:13; Start 08/26/16 at 16:00; Stop 08/26/16 at 16:01; Status DC Info (PHARMACY MONITORING -- do not chart) 1 each PRN DAILY PRN MC SEE COMMENTS ; Start 08/27/16 at 08:00; Status UNV Info (PHARMACY MONITORING -- do not chart) 1 each PRN DAILY PRN MC SEE COMMENTS ; Start 08/27/16 at 08:00; Status Cancel Warfarin Sodium (Coumadin) 4 mg 1X WARF ONCE PO Last administered on 18:32; Start 08/27/16 at 16:00; Stop 08/27/16 at 16:01; Status DC Warfarin Sodium 3 mg 3 mg 1X WARF ONCE PO Last administered on 08/28/16 17:15 ; Start 08/28/16 at 16:00; Stop 08/28/16 at 16:01; Status DC Sodium Chloride (Iv Sodium Chloride 0.9% 1000ml Bag) 1,000 ml @ 1,000 mls/hr Q1H PRN IV hypotension; Start 08/28/16 at 10:42; Stop 08/28/16 at 16:41; Status DC Sodium Chloride (Normal Saline Flush) 10 ml 1X PRN PRN IV AP catheter pack; Start 08/28/16 at 10:45; Stop 08/29/16 at 10:44; Status DC Sodium Chloride (Normal Saline Flush) 10 ml 1X PRN PRN IV [employer] catheter pack; Start 08/28/16 at 10:45; Stop 08/29/16 at 10:44; Status DC Info (PHARMACY MONITORING -- do not chart) 1 each PRN DAILY PRN MC SEE COMMENTS ; Start 08/28/16 at 10:45; Status UNV Info (PHARMACY MONITORING -- do not chart) 1 each PRN DAILY PRN MC SEE COMMENTS ; Start 08/28/16 at 10:45; Status UNV Warfarin Sodium (Coumadin) 2.5 mg 1X WARF ONCE PO Last administered on 17:00; Start 08/29/16 at 16:00; Stop 08/29/16 at 16:01; Status DC Warfarin Sodium (Coumadin) 2 mg 1X WARF ONCE PO Last administered on 17:58; Start 08/30/16 at 16:00; Stop 08/30/16 at 16:01; Status DC Artificial Tears (Artificial Tears) 1 drop PRN Q15MIN PRN OU DRY EYE Last administered on 08/30/16t 21:21; Start 08/30/16 at 18:00 Info (PHARMACY MONITORING -- do not chart) 1 each PRN DAILY PRN MC SEE COMMENTS ; Start 08/31/16 at 08:15 Info (PHARMACY MONITORING -- do not chart) 1 each PRN DAILY PRN MC SEE COMMENTS ; Start 08/31/16 at 08:15; Status UNV Warfarin Sodium (Coumadin - No Dose Today) 1 each 1X WARF ONCE MC ; Start 08/31 at 16:00; Stop 08/31/16 at 16:01; Status DC Active Scripts Active Entresto 24 mg-26 mg Tablet (Sacubitril/Valsartan) 1 Each Tablet 1 Tab PO BID Coumadin (Warfarin Sodium) 2.5 Mg Tablet 2.5 Mg PO DAILY16 Reported Reglan (Metoclopramide Hcl) 10 Mg Tablet 5 Mg PO PRN BID PRN Atorvastatin Calcium 40 Mg Tablet 1 Tab PO DAILY Colestid (Colestipol Hcl) 1 Gm Tablet 1 Gm PO TID Pacerone (Amiodarone Hcl) 200 Mg Tablet 200 Mg PO DAILY Lasix (Furosemide) 80 Mg Tablet 1 Tab PO BID Gabapentin 100 Mg Capsule 1 Cap PO TID Aspir 81 (Aspirin) 81 Mg Tablet. 1 Tab PO DAILY Coreg (Carvedilol) 6.25 Mg Tablet 1 Tab PO BID K-Tab ER (Potassium Chloride) 20 Meq Tablet.er 20 Meq PO BID Vitals/I & O Vital Sign - Last 24 Hours 08/31/16 08/31/16 08/31/16 08/31/16 11:42 11:42 11:45 14:46 Temp 97.9 98.0 97.9 98.0 Pulse 65 65 68 68 Resp 18 21 B/P 94/56 94/56 104/50 91/50 Pulse Ox 95 98 O2 Delivery Room Air Room Air 08/31/16 08/31/16 08/31/16 08/31/16 18:14 19:26 20:30 23:01 Temp 97.9 98.0 97.9 98.0 Pulse 68 68 64 Resp 22 16 B/P 91/50 97/55 101/61 Pulse Ox 94 99 O2 Delivery Room Air Room Air Room Air O2 Flow Rate 2.0 4/18/17 4/18/17 4/18/17 4/18/17 03:00 07:00 07:40 08:59 Temp 98.1 98.1 98.1 98.1 Pulse 70 65 65 Resp 16 19 B/P 111/56 97/55 97/55 Pulse Ox 96 98 O2 Delivery Room Air Room Air Room Air O2 Flow Rate 2.0 09/01/16 08:59 Pulse 65 B/P 97/55 Intake and Output 08/31/16 08/31/16 09/01/16 15:00 23:00 07:00 Intake Total 480 ml 170 ml Output Total 50 ml 50 ml Balance 430 ml 120 ml MADDIE AMBROSE MD Sep 01, 2016 09:19
--- NOTE | 2016-09-01 10:24 | PDOC ---
PROGRESS NOTES Subjective Subjective no new problems ,seems to be doing well with dialysis Objective Objective Vital Signs Date Time Temp Pulse Resp B/P Pulse Ox O2 Delivery O2 Flow Rate FiO2 09/01/16 08:59 65 97/55 09/01/16 07:40 Room Air 2.0 09/01/16 07:00 98.1 19 98 98.1 Intake and Output 09/01/16 07:00 Intake Total 650 ml Output Total 100 ml Balance 550 ml Intake Oral 650 ml Output Urine Total 100 ml Physical Exam Abdomen: Normal bowel sounds, Soft, No tenderness Heart: Regular rate, Normal S1, Normal S2, Other (1-2/6 systolic murmur) Extremities: No clubbing, No cyanosis General: Alert, Oriented X3, Cooperative, No acute distress HEENT: Atraumatic, PERRLA Lungs: Clear to auscultation MUSCULOSKELETAL: No joint tenderness, No deformity, No muscular tenderness noted Neck: Supple Neuro: Normal speech Psych/Mental Status: Mood NL Skin: No rashes, No significant lesion Diagnosis Problem List Problems Medical Problems: (1) Acute on chronic renal failure Status: Acute Assessment Assessment New ESRD on dialysis,started on dialysis last week * urinary retention improved. ac on crf. possible ATN 1. ARF with CKD II ATN SONA on HD 2. a/c systolic CHF ICM EF 10% AICD 3. HTN 4. DM II with CKD II diet control 5. hyperlipidemia 6. mild to mod MR 7. moderate pulmonary HTN 8. severe weakness and debility 9. metabolic encephalopathy POA 10. moderate chronic PCL malnutrition PLAN:dobutamine infusion today waiting for dialysis slot to be opened ,close to her daughters place in [place], [place]. plans to move wednesday or wednesday Improving slowly. INR 3.5 Adjust Coumadin. dobutamine infusions Problems: Plan Plan of Care Problems Medical Problems: (1) Acute on chronic renal failure Status: Acute Comment Review of Relevant I have reviewed the following items marquise (where applicable) has been applied. Labs Laboratory Tests Test 08/31/16 11:46 08/31/16 17:12 08/31/16 21:17 09/01/16 05:00 Glucose (Fingerstick) 100mg/dL (70-99) 135mg/dL (70-99) 135mg/dL (70-99) Prothrombin Time 28.5SEC (11.7-14.0) Prothromb Time International Ratio 2.9 (0.8-1.1) Test 09/01/16 07:53 Glucose (Fingerstick) 116mg/dL (70-99) Microbiology 08/15/16 Urine Culture - Final, Complete 08/15/16 Urine Culture Result 1 (JV) - Final, Complete 08/15/16 Urine Culture Result 2 (JV) - Final, Complete 08/15/16 Antimicrobic Susceptibility - Final, Complete Medications Current Medications Warfarin Sodium (Coumadin - No Dose Today) 1 each 1X WARF ONCE MC ; Start 08/31 at 16:00; Stop 08/31/16 at 16:01; Status DC Vitals/I & O Vital Sign - Last 24 Hours 08/31/16 08/31/16 08/31/16 08/31/16 11:42 11:42 11:45 14:46 Temp 97.9 98.0 97.9 98.0 Pulse 65 65 68 68 Resp 18 21 B/P 94/56 94/56 104/50 91/50 Pulse Ox 95 98 O2 Delivery Room Air Room Air 08/31/16 08/31/16 08/31/16 08/31/16 18:14 19:26 20:30 23:01 Temp 97.9 98.0 97.9 98.0 Pulse 68 68 64 Resp 22 16 B/P 91/50 97/55 101/61 Pulse Ox 94 99 O2 Delivery Room Air Room Air Room Air O2 Flow Rate 2.0 09/01/16 09/01/16 09/01/16 09/01/16 03:00 07:00 07:40 08:59 Temp 98.1 98.1 98.1 98.1 Pulse 70 65 65 Resp 16 19 B/P 111/56 97/55 97/55 Pulse Ox 96 98 O2 Delivery Room Air Room Air Room Air O2 Flow Rate 2.0 09/01/16 08:59 Pulse 65 B/P 97/55 Intake and Output 08/31/16 08/31/16 09/01/16 15:00 23:00 07:00 Intake Total 480 ml 170 ml Output Total 50 ml 50 ml Balance 430 ml 120 ml AFSHAN SLADE MD Sep 01, 2016 10:24
[2016-09-01 10:43] VITALS: BP 101/66
--- NOTE | 2016-09-01 10:59 | PDOC ---
SUBJECTIVE ROS ESRD Doing and feeling OK overall CVS: no Orthopnea, no CP RESP: no SOB, no SEGOVIA GI: no Nausea, no Vomiting : no Dysuria, no Urgency OBJECTIVE Vital Signs Vital Signs Date Time Temp Pulse Resp B/P Pulse Ox O2 Delivery O2 Flow Rate FiO2 09/01/16 10:43 97.9 65 17 101/66 98 Room Air 97.9 09/01/16 07:40 2.0 I & 0 Intake and Output 09/01/16 07:00 Intake Total 650 ml Output Total 100 ml Balance 550 ml Intake Oral 650 ml Output Urine Total 100 ml PHYSICAL EXAM Physical Exam General Appearance: Awake Alert Oriented x 3 In no Distress Eyes: VIsion Unchanged Conjunctiva Normal EN: No EN Drainage Mucous Memb. moist Neck: no JVD + JVP Supple no Thyromegaly CVS: S1 S2 + Murmur No Gallop No Rub tr Edema Resp: no Rales no Rhonchi no Acc. 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 Element of ATN cannot be ruled out. Current FLuid and E-lyte status does not necessitate emergent need for Dialysis. Will re-evaluate for Dialysis in am; Anemia:(Fe def) IV Iron done, ct Epogen for now; Transfuse as needed. Marginal HypoTN: Current meds reviewed. Suspect Hemodynamics will be tenous due to ES Cmyopahty BiV Dil Cmyoaphty - End stage dilated cardiomyopathy Dobutamine gtt as OP per Cardiology Discussed Plan of Care and prognosis etc. at length with pt. Prognosis is guarded for near term Plans for [facility] HD in [place] noted. Hence [facility] on Wednesday COMMENT/RELEVANT DATA Meds Current Medications Medications (Trade) Dose Ordered Sig/Fernando Start Time Stop Time Status Last Admin Dose Admin Albumin Human (Albuminar) 100 ml @ 100 mls/hr 1X ONCE 08/16/16 09:00 08/16/16 09:59 DC 08/16/16 08:41 100 MLS/HR Amiodarone HCl (Cordarone) 200 mg DAILY 08/15/16 09:00 09/01/16 08:59 200 MG Artificial Tears (Artificial Tears) 1 drop PRN Q15MIN PRN 08/30/16 18:00 08/30/16 21:21 1 DROP Aspirin (Ecotrin) 81 mg DAILY 08/15/16 09:00 09/01/16 08:59 81 MG Atorvastatin Calcium (Lipitor) 40 mg QHS 08/14/16 21:00 08/31/16 21:27 40 MG Bisacodyl (Dulcolax Supp) 10 mg 1X ONCE 08/20/16 14:30 08/20/16 14:31 DC 08/20/16 16:49 10 MG Carvedilol (Coreg) 6.25 mg BIDWMEALS 08/14/16 17:30 09/01/16 08:59 6.25 MG Cefazolin Sodium (Ancef 1gm Ivpb For Omni) 50 ml @ 100 mls/hr 1X ONCE 08/24/16 12:30 08/24/16 12:59 DC 08/24/16 12:29 100 MLS/HR Cefpodoxime Proxetil (Vantin) 100 mg BID 08/19/16 21:00 08/26/16 21:01 DC 08/26/16 20:40 100 MG Ceftriaxone Sodium/Sodium Chloride (Rocephin/Iv Sodium Chloride 0.9% 50ml) 50 ml @ 100 mls/hr Q24H 08/17/16 10:00 08/19/16 12:56 DC 08/19/16 10:00 100 MLS/HR Colestipol HCl (Colestid) 1 gm TID 08/14/16 21:00 08/18/16 10:08 DC 08/17/16 20:55 1 GM Darbepoetin Dino (Aranesp) 60 mcg WEEKLYHS 08/24/16 21:00 08/31/16 21:27 60 MCG Dextrose (Dextrose 50%-Water Syringe) 12.5 gm PRN Q15MIN PRN 08/14/16 16:45 Dobutamine HCl/ Dextrose 250 ml @ 0 mls/hr CONT PRN PRN 08/15/16 14:53 08/31/16 22:13 6.6 MLS/HR Fentanyl Citrate (Fentanyl 2ml Vial) 100 mcg STK-MED ONCE 08/24/16 11:58 08/24/16 11:59 DC Fentanyl Citrate 100 mcg 100 mcg 1X ONCE 08/24/16 12:30 08/24/16 12:31 DC 08/24/16 12:30 75 MCG Furosemide (Lasix) 40 mg 1X ONCE 08/16/16 10:00 08/16/16 10:01 DC 08/16/16 09:45 40 MG Furosemide 40 mg 40 mg 1X ONCE 08/15/16 15:00 08/15/16 15:01 DC 08/15/16 16:22 40 MG Heparin Sodium (Porcine) (Hep Lock Adult) 500 unit STK-MED ONCE 08/18/16 09:29 08/18/16 11:42 DC Heparin Sodium (Porcine) (Heparin Sodium) 4,300 unit 1X ONCE 08/24/16 12:15 08/24/16 12:21 DC 08/24/16 12:15 4,300 UNIT Heparin Sodium/ Sodium Chloride 1,000 unit 1X ONCE 08/24/16 11:45 08/24/16 11:46 DC 08/24/16 12:23 1,000 UNIT Info (PHARMACY MONITORING -- do not chart) 1 each PRN DAILY PRN 08/31/16 08:15 UNV Insulin Aspart (Novolog) 0-5 UNITS TIDWMEALS 08/14/16 17:30 08/30/16 12:00 2 UNITS Iron Sucrose/ Sodium Chloride (Venofer/Iv Sodium Chloride 0.9% 100ml) 110 ml @ 55 mls/hr 3X/WEEK 08/19/16 09:00 08/28/16 10:59 DC 08/28/16 09:10 55 MLS/HR Lidocaine/ Epinephrine (Xylocaine 2%-Epi 1:100,000) 20 ml 1X ONCE 08/24/16 11:45 08/24/16 11:46 DC 08/24/16 12:23 20 ML Lidocaine/ Epinephrine 20 ml 20 ml STK-MED ONCE 08/18/16 09:29 08/18/16 11:42 DC Magnesium Sulfate/ Dextrose (Magnesium Sulfate PREMIX 2GM) 50 ml @ 25 mls/hr PRN DAILY PRN 08/15/16 15:30 Metoclopramide HCl (Reglan) 5 mg PRN BID PRN 08/14/16 16:45 08/16/16 10:25 DC Midazolam HCl (Versed) 2 mg 1X ONCE 08/24/16 12:30 08/24/16 12:31 DC 08/24/16 12:30 1.5 MG Midazolam HCl 2 mg 2 mg STK-MED ONCE 08/18/16 10:30 08/18/16 11:43 DC Mineral Oil (Fleet Mineral Oil) 133 ml PRN DAILY PRN 08/24/16 19:30 Non-Formulary Medication 1 ea Q4H 08/21/16 12:00 08/21/16 16:01 DC 08/21/16 16:18 1 EA Ondansetron HCl 4 mg 4 mg PRN Q6HRS PRN 08/16/16 20:30 08/27/16 00:53 4 MG Pantoprazole Sodium (Protonix) 40 mg DAILYAC 08/15/16 11:30 09/01/16 08:59 40 MG Sacubitril/ Valsartan (Entresto 24 Mg-26 Mg) 1 tab BID 08/14/16 21:00 08/17/16 10:16 DC 08/17/16 09:14 1 TAB Senna/Docusate Sodium (Senna Plus) 1 tab PRN BID PRN 08/20/16 10:00 08/28/16 16:20 1 TAB Senna/Docusate Sodium 1 tab 1 tab PRN BID PRN 08/19/16 13:30 08/20/16 14:43 DC 08/20/16 14:18 1 TAB Sodium Bicarbonate 50 meq 50 meq Q2HR 08/15/16 16:00 08/15/16 18:30 DC 08/15/16 18:20 50 MEQ Sodium Polystyrene Sulfonate (Kayexalate) 60 gm 1X ONCE 08/14/16 18:30 08/14/16 18:31 DC 08/14/16 18:51 60 GM Sodium Bicarbonate 50 meq Q6H 08/21/16 14:00 08/21/16 20:01 DC 08/21/16 20:16 50 MEQ Sodium Chloride (Iv Sodium Chloride 0.9% 500ml Bag) 500 ml @ 0 mls/hr 1X ONCE 08/19/16 16:00 08/19/16 16:01 DC 08/19/16 16:58 999 MLS/HR Sodium Chloride (Iv Sodium Chloride 0.9% 1000ml Bag) 1,000 ml @ 1,000 mls/hr Q1H PRN 08/28/16 10:42 08/28/16 16:41 DC Sodium Chloride (Normal Saline Flush) 10 ml 1X PRN PRN 08/28/16 10:45 08/29/16 10:44 DC Tramadol HCl (Ultram) 50 mg PRN TID PRN 08/25/16 15:45 08/29/16 19:58 50 MG Vancomycin HCl 250 ml @ As Directed STK-MED ONCE 08/18/16 09:29 08/18/16 11:42 DC Warfarin Sodium (Coumadin - No Dose Today) 1 each 1X WARF ONCE 08/31/16 16:00 08/31/16 16:01 DC Warfarin Sodium (Coumadin Per Pharmacy) 1 each PRN DAILY PRN 08/15/16 10:00 08/31/16 13:33 1 EACH Warfarin Sodium (Coumadin Per Physician) 1 each PRN DAILY PRN 08/14/16 17:15 08/15/16 09:54 DC Warfarin Sodium (Coumadin) 2 mg 1X WARF ONCE 08/30/16 16:00 08/30/16 16:01 DC 08/30/16 17:58 2 MG Warfarin Sodium 3 mg 3 mg 1X WARF ONCE 08/28/16 16:00 08/28/16 16:01 DC 08/28/16 17:15 3 MG Warfarin Sodium 4 mg 4 mg 1X WARF ONCE 08/15/16 16:00 08/15/16 16:01 DC 08/15/16 16:33 4 MG Lab Laboratory Tests Test 08/31/16 11:46 08/31/16 17:12 08/31/16 21:17 09/01/16 05:00 Glucose (Fingerstick) 100mg/dL (70-99) 135mg/dL (70-99) 135mg/dL (70-99) Prothrombin Time 28.5SEC (11.7-14.0) Prothromb Time International Ratio 2.9 (0.8-1.1) Test 09/01/16 07:53 Glucose (Fingerstick) 116mg/dL (70-99) ALLI SELBY MD Sep 01, 2016 10:59
--- NOTE | 2016-09-01 13:52 | PDOC ---
PROGRESS NOTES Subjective Subjective Patient feeling well. Notes that she has SOB when laying in bed that she states is similar to "anxiety". She has been sleeping in the reclining chair for the past 3 nights. Objective Objective Vital Signs Date Time Temp Pulse Resp B/P Pulse Ox O2 Delivery O2 Flow Rate FiO2 09/01/16 10:43 97.9 65 17 101/66 98 Room Air 97.9 09/01/16 07:40 2.0 Intake and Output 09/01/16 07:00 Intake Total 650 ml Output Total 100 ml Balance 550 ml Intake Oral 650 ml Output Urine Total 100 ml Physical Exam Physical Exam Unchanged from cardiac standpoint Assessment Assessment Patient stable on dobutamine drip dose. Problems Medical Problems: (1) Acute on chronic renal failure Status: Acute Plan Plan of Care Agree with present plan. Awaiting transfer to [facility]. Comment Review of Relevant I have reviewed the following items marquise (where applicable) has been applied. Labs Laboratory Tests Test 08/30/16 16:43 08/30/16 20:46 08/31/16 05:30 08/31/16 11:46 Glucose (Fingerstick) 120mg/dL (70-99) 137mg/dL (70-99) 100mg/dL (70-99) White Blood Count 6.6x10^3/uL (4.0-11.0) Red Blood Count 3.79x10^6/uL (4.30-5.70) Hemoglobin 9.8g/dL (13.0-17.5) Hematocrit 31.4% (39.0-53.0) Mean Corpuscular Volume 83fL (79-100) Mean Corpuscular Hemoglobin 26pg (25-35) Mean Corpuscular Hemoglobin Concent 31g/dL (31-37) Red Cell Distribution Width 22.7% (11.5-14.5) Platelet Count 118x10^3/uL (140-400) Neutrophils (%) (Auto) 80% (31-73) Lymphocytes (%) (Auto) 9% (24-48) Monocytes (%) (Auto) 8% (0-9) Eosinophils (%) (Auto) 2% (0-3) Basophils (%) (Auto) 1% (0-3) Neutrophils # (Auto) 5.3x10^3uL (1.8-7.7) Lymphocytes # (Auto) 0.6x10^3/uL (1.0-4.8) Monocytes # (Auto) 0.5x10^3/uL (0.0-1.1) Eosinophils # (Auto) 0.1x10^3/uL (0.0-0.7) Basophils # (Auto) 0.1x10^3/uL (0.0-0.2) Platelet Estimate Decreased (ADEQUATE) Poikilocytosis Mod Anisocytosis Mod Ovalocytes Present Olga Cells Present Schistocytes Occ Prothrombin Time 33.6SEC (11.7-14.0) Prothromb Time International Ratio 3.5 (0.8-1.1) Sodium Level 134mmol/L (136-145) Potassium Level 4.1mmol/L (3.5-5.1) Chloride Level 98mmol/L (98-107) Carbon Dioxide Level 26mmol/L (21-32) Anion Gap 10 (6-14) Blood Urea Nitrogen 34mg/dL (8-26) Creatinine 2.7mg/dL (0.7-1.3) Estimated GFR (Cockcroft-Gault) 28.2 BUN/Creatinine Ratio 13 (6-20) Glucose Level 138mg/dL (70-99) Calcium Level 7.6mg/dL (8.5-10.1) Total Bilirubin 0.6mg/dL (0.2-1.0) Aspartate Amino Transf (AST/SGOT) 20U/L (15-37) Alanine Aminotransferase (ALT/SGPT) 20U/L (16-63) Alkaline Phosphatase 92U/L (46-116) Total Protein 5.9g/dL (6.4-8.2) Albumin 2.8g/dL (3.4-5.0) Albumin/Globulin Ratio 0.9 (1.0-1.7) Test 08/31/16 17:12 08/31/16 21:17 09/01/16 05:00 09/01/16 07:53 Glucose (Fingerstick) 135mg/dL (70-99) 135mg/dL (70-99) 116mg/dL (70-99) Prothrombin Time 28.5SEC (11.7-14.0) Prothromb Time International Ratio 2.9 (0.8-1.1) Test 09/01/16 11:36 Glucose (Fingerstick) 160mg/dL (70-99) Laboratory Tests Test 08/31/16 17:12 08/31/16 21:17 09/01/16 05:00 09/01/16 07:53 Glucose (Fingerstick) 135mg/dL (70-99) 135mg/dL (70-99) 116mg/dL (70-99) Prothrombin Time 28.5SEC (11.7-14.0) Prothromb Time International Ratio 2.9 (0.8-1.1) Test 09/01/16 11:36 Glucose (Fingerstick) 160mg/dL (70-99) Microbiology 08/15/16 Urine Culture - Final, Complete 08/15/16 Urine Culture Result 1 (JV) - Final, Complete 08/15/16 Urine Culture Result 2 (JV) - Final, Complete 08/15/16 Antimicrobic Susceptibility - Final, Complete Medications Current Medications Insulin Aspart (Novolog) 0-5 UNITS TIDWMEALS SQ Last administered on 08/30/16 12:00; Start 08/14/16 at 17:30 Dextrose 12.5 gm 12.5 gm PRN Q15MIN PRN IV SEE COMMENTS; Start 08/14/16 at 16: 45 Sodium Chloride (Iv Sodium Chloride 0.9% 1000ml Bag) 1,000 ml @ 100 mls/hr Q10H IV Last administered on 08/14/16 18:53; Start 08/14/16 at 17:30; Stop 08/15/16 at 03:29; Status DC Amiodarone HCl (Cordarone) 200 mg DAILY PO Last administered on 09/01/16 08:59 ; Start 08/15/16 at 09:00 Aspirin (Ecotrin) 81 mg DAILY PO Last administered on 09/01/16 08:59; Start at 09:00 Atorvastatin Calcium (Lipitor) 40 mg QHS PO Last administered on 08/31/16 21: 27; Start 08/14/16 at 21:00 Carvedilol (Coreg) 6.25 mg BIDWMEALS PO Last administered on 09/01/16 08:59; Start 08/14/16 at 17:30 Colestipol HCl (Colestid) 1 gm TID PO Last administered on 08/17/16 20:55; Start 08/14/16 at 21:00; Stop 08/18/16 at 10:08; Status DC Metoclopramide HCl (Reglan) 5 mg PRN BID PRN PO NAUSEA; Start 08/14/16 at 16:45 ; Stop 08/16/16 at 10:25; Status DC Sacubitril/ Valsartan (Entresto 24 Mg-26 Mg) 1 tab BID PO Last administered on 08/17/16 09:14; Start 08/14/16 at 21:00; Stop 08/17/16 at 10:16; Status DC Warfarin Sodium (Coumadin) 2.5 mg DAILY16 PO Last administered on 08/14/16 18: 50; Start 08/14/16 at 18:00; Stop 08/15/16 at 14:13; Status DC Warfarin Sodium (Coumadin Per Physician) 1 each PRN DAILY PRN MC SEE COMMENTS; Start 08/14/16 at 17:15; Stop 08/15/16 at 09:54; Status DC Sodium Polystyrene Sulfonate (Kayexalate) 60 gm 1X ONCE PO Last administered on 08/14/16 18:51; Start 08/14/16 at 18:30; Stop 08/14/16 at 18:31; Status DC Warfarin Sodium (Coumadin Per Pharmacy) 1 each PRN DAILY PRN MC SEE COMMENTS Last administered on 08/31/16 13:33; Start 08/15/16 at 10:00 Pantoprazole Sodium 40 mg 40 mg DAILYAC PO Last administered on 09/01/16 08:59 ; Start 08/15/16 at 11:30 Dobutamine HCl/ Dextrose 250 ml @ 0 mls/hr CONT PRN IV ; Start 08/15/16 at 14:00 ; Stop 08/15/16 at 14:53; Status DC Albumin Human (Albuminar) 100 ml @ 100 mls/hr 1X ONCE IV Last administered on 08/15/16 15:25; Start 08/15/16 at 14:00; Stop 08/15/16 at 14:59; Status DC Furosemide 40 mg 40 mg 1X ONCE IVP Last administered on 08/15/16 16:22; Start 08/15/16 at 15:00; Stop 08/15/16 at 15:01; Status DC Albumin Human (Albuminar) 100 ml @ 100 mls/hr 1X ONCE IV Last administered on 08/16/16 08:41; Start 08/16/16 at 09:00; Stop 08/16/16 at 09:59; Status DC Furosemide (Lasix) 40 mg 1X ONCE IVP Last administered on 08/16/16 09:45; Start 08/16/16 at 10:00; Stop 08/16/16 at 10:01; Status DC Warfarin Sodium 4 mg 4 mg 1X WARF ONCE PO Last administered on 08/15/16 16:33 ; Start 08/15/16 at 16:00; Stop 08/15/16 at 16:01; Status DC Dobutamine HCl/ Dextrose 250 ml @ 0 mls/hr CONT PRN PRN IV SEE I/O RECORD Last administered on 08/31/16 22:13; Start 08/15/16 at 14:53 Sodium Bicarbonate 50 meq 50 meq Q2HR IV Last administered on 08/15/16 18:20; Start 08/15/16 at 16:00; Stop 08/15/16 at 18:30; Status DC Magnesium Sulfate/ Dextrose (Magnesium Sulfate PREMIX 2GM) 50 ml @ 25 mls/hr PRN DAILY PRN IV for Mag < 1.7 on am labs; Start 08/15/16 at 15:30 Warfarin Sodium (Coumadin) 4 mg 1X WARF ONCE PO Last administered on 08/16/16 17:28; Start 08/16/16 at 16:00; Stop 08/16/16 at 16:01; Status DC Ondansetron HCl 4 mg 4 mg PRN Q6HRS PRN IV nausea Last administered on 00:53; Start 08/16/16 at 20:30 Ceftriaxone Sodium 1 gm/ Sodium Chloride 50 ml @ 100 mls/hr Q24H IV Last administered on 08/19/16 10:00; Start 08/17/16 at 10:00; Stop 08/19/16 at 12:56; Status DC Sodium Chloride (Iv Sodium Chloride 0.9% 1000ml Bag) 1,000 ml @ 75 mls/hr [id number] IV Last administered on 08/19/16 16:58; Start 08/17/16 at 10:15; Stop at 09:27; Status DC Warfarin Sodium (Coumadin) 5 mg 1X WARF ONCE PO ; Start 08/17/16 at 16:00; Stop 08/17/16 at 16:01; Status DC Heparin Sodium/ Sodium Chloride 1,000 unit 1X ONCE IART Last administered on 11:45; Start 08/18/16 at 11:30; Stop 08/18/16 at 11:31; Status DC Midazolam HCl (Versed) 2 mg 1X ONCE IV Last administered on 08/18/16 11:46; Start 08/18/16 at 11:30; Stop 08/18/16 at 11:31; Status DC Fentanyl Citrate (Fentanyl 2ml Vial) 100 mcg 1X ONCE IV Last administered on 11:47; Start 08/18/16 at 11:30; Stop 08/18/16 at 11:31; Status DC Lidocaine/ Epinephrine 15 ml 15 ml 1X ONCE IJ Last administered on 08/18/16 11 :44; Start 08/18/16 at 11:30; Stop 08/18/16 at 11:31; Status DC Vancomycin HCl 250 ml @ 250 mls/hr 1X ONCE IRR Last administered on 08/18/16 11:45; Start 08/18/16 at 11:30; Stop 08/18/16 at 12:29; Status DC Heparin Sodium (Porcine) (Hep Lock Adult) 500 unit 1X ONCE IV Last administered on 08/18/16 11:46; Start 08/18/16 at 11:30; Stop 08/18/16 at 11:31; Status DC Heparin Sodium (Porcine) (Hep Lock Adult) 500 unit STK-MED ONCE IV ; Start at 09:29; Stop 08/18/16 at 11:42; Status DC Lidocaine/ Epinephrine 20 ml 20 ml STK-MED ONCE .ROUTE ; Start 08/18/16 at 09:29 ; Stop 08/18/16 at 11:42; Status DC Heparin Sodium/ Sodium Chloride 500 ml @ As Directed STK-MED ONCE .ROUTE ; Start 08/18/16 at 09:29; Stop 08/18/16 at 11:42; Status DC Vancomycin HCl 250 ml @ As Directed STK-MED ONCE .ROUTE ; Start 08/18/16 at 09: 29; Stop 08/18/16 at 11:42; Status DC Fentanyl Citrate (Fentanyl 2ml Vial) 100 mcg STK-MED ONCE .ROUTE ; Start at 10:29; Stop 08/18/16 at 11:43; Status DC Midazolam HCl 2 mg 2 mg STK-MED ONCE .ROUTE ; Start 08/18/16 at 10:30; Stop at 11:43; Status DC Iron Sucrose/ Sodium Chloride (Venofer/Iv Sodium Chloride 0.9% 100ml) 110 ml @ 55 mls/hr 3X/WEEK IV Last administered on 08/28/16 09:10; Start 08/19/16 at 09: 00; Stop 08/28/16 at 10:59; Status DC Warfarin Sodium (Coumadin) 5 mg 1X WARF ONCE PO Last administered on 08/18/16 17:56; Start 08/18/16 at 16:00; Stop 08/18/16 at 16:01; Status DC Warfarin Sodium (Coumadin) 3 mg 1X WARF ONCE PO ; Start 08/19/16 at 16:00; Stop 08/19/16 at 16:01; Status Cancel Cefpodoxime Proxetil (Vantin) 100 mg BID PO Last administered on 08/26/16 20: 40; Start 08/19/16 at 21:00; Stop 08/26/16 at 21:01; Status DC Warfarin Sodium (Coumadin) 2.5 mg 1X WARF ONCE PO Last administered on 16:59; Start 08/19/16 at 16:00; Stop 08/19/16 at 16:01; Status DC Senna/Docusate Sodium 1 tab 1 tab PRN BID PRN PO CONSTIPATION Last administered on 08/20/16 14:18; Start 08/19/16 at 13:30; Stop 08/20/16 at 14:43; Status DC Sodium Chloride 250 ml @ 0 mls/hr 1X ONCE IV Last administered on 08/19/16 14: 33; Start 08/19/16 at 13:45; Stop 08/19/16 at 13:53; Status DC Sodium Chloride (Iv Sodium Chloride 0.9% 500ml Bag) 500 ml @ 0 mls/hr 1X ONCE IV Last administered on 08/19/16 16:58; Start 08/19/16 at 16:00; Stop 08/19/16 at 16:01; Status DC Senna/Docusate Sodium (Senna Plus) 1 tab PRN BID PRN PO CONSTIPATION Last administered on 08/28/16 16:20; Start 08/20/16 at 10:00 Bisacodyl (Dulcolax Supp) [address] ; Start 08/20/16 at 11:00; Stop at 11:00; Status DC Bisacodyl (Dulcolax Supp) [address] Last administered on 08/20/16 16:49 ; Start 08/20/16 at 14:30; Stop 08/20/16 at 14:31; Status DC Warfarin Sodium (Coumadin) 2 mg 1X WARF ONCE PO Last administered on 08/20/16 16:48; Start 08/20/16 at 16:00; Stop 08/20/16 at 16:01; Status DC Mineral Oil (Fleet Mineral Oil) [address] ; Start 08/21/16 at 20:00; Stop 08/21/16 at 20:00; Status DC Non-Formulary Medication 1 ea Q4H PO Last administered on 08/21/16 16:18; Start 08/21/16 at 12:00; Stop 08/21/16 at 16:01; Status DC Sodium Bicarbonate 50 meq Q6H IV Last administered on 08/21/16 20:16; Start 08/21/16 at 14:00; Stop 08/21/16 at 20:01; Status DC Warfarin Sodium (Coumadin) 3 mg 1X WARF ONCE PO Last administered on 08/21/16 16:16; Start 08/21/16 at 16:00; Stop 08/21/16 at 16:01; Status DC Warfarin Sodium (Coumadin) 2.5 mg 1X WARF ONCE PO Last administered on 16:00; Start 08/22/16 at 16:00; Stop 08/22/16 at 16:01; Status DC Warfarin Sodium (Coumadin) 3 mg 1X WARF ONCE PO Last administered on 08/23/16 18:28; Start 08/23/16 at 16:00; Stop 08/23/16 at 16:01; Status DC Lidocaine/ Epinephrine (Xylocaine 2%-Epi 1:100,000) 20 ml STK-MED ONCE .ROUTE ; Start 08/24/16 at 10:54; Stop 08/24/16 at 10:55; Status DC Heparin Sodium (Porcine) 99370 unit 10,000 unit STK-MED ONCE .ROUTE ; Start 03/02 at 10:54; Stop 08/24/16 at 10:55; Status DC Heparin Sodium/ Sodium Chloride 500 ml @ As Directed STK-MED ONCE .ROUTE ; Start 08/24/16 at 10:54; Stop 08/24/16 at 10:55; Status DC Darbepoetin Dino (Aranesp) 60 mcg WEEKLYHS SQ Last administered on 08/31/16 21 :27; Start 08/24/16 at 21:00 Fentanyl Citrate (Fentanyl 2ml Vial) 100 mcg STK-MED ONCE .ROUTE ; Start at 11:26; Stop 08/24/16 at 11:27; Status DC Midazolam HCl 2 mg 2 mg STK-MED ONCE .ROUTE ; Start 08/24/16 at 11:26; Stop 03/02 at 11:27; Status DC Cefazolin Sodium (Ancef 1gm Ivpb For Omni) 0 ml @ As Directed STK-MED ONCE IV ; Start 08/24/16 at 11:26; Stop 08/24/16 at 11:27; Status DC Heparin Sodium/ Sodium Chloride 1,000 unit 1X ONCE IART Last administered on 12:23; Start 08/24/16 at 11:45; Stop 08/24/16 at 11:46; Status DC Lidocaine/ Epinephrine (Xylocaine 2%-Epi 1:100,000) 20 ml 1X ONCE IJ Last administered on 08/24/16 12:23; Start 08/24/16 at 11:45; Stop 08/24/16 at 11:46 ; Status DC Fentanyl Citrate (Fentanyl 2ml Vial) 100 mcg STK-MED ONCE .ROUTE ; Start at 11:58; Stop 08/24/16 at 11:59; Status DC Midazolam HCl (Versed) 2 mg STK-MED ONCE .ROUTE ; Start 08/24/16 at 11:58; Stop 08/24/16 at 11:59; Status DC Heparin Sodium (Porcine) (Heparin Sodium) 4,300 unit 1X ONCE IV Last administered on 08/24/16 12:15; Start 08/24/16 at 12:15; Stop 08/24/16 at 12:21 ; Status DC Midazolam HCl (Versed) 2 mg 1X ONCE IV Last administered on 08/24/16 12:30; Start 08/24/16 at 12:30; Stop 08/24/16 at 12:31; Status DC Fentanyl Citrate 100 mcg 100 mcg 1X ONCE IV Last administered on 08/24/16 12: 30; Start 08/24/16 at 12:30; Stop 08/24/16 at 12:31; Status DC Cefazolin Sodium (Ancef 1gm Ivpb For Omni) 50 ml @ 100 mls/hr 1X ONCE IV Last administered on 08/24/16 12:29; Start 08/24/16 at 12:30; Stop 08/24/16 at 12:59; Status DC Warfarin Sodium (Coumadin) 4 mg 1X WARF ONCE PO Last administered on 18:08; Start 08/24/16 at 16:00; Stop 08/24/16 at 16:01; Status DC Mineral Oil (Fleet Mineral Oil) [address] CONSTIPATION; Start 03/02 at 19:30 Info (PHARMACY MONITORING -- do not chart) 1 each PRN DAILY PRN MC SEE COMMENTS ; Start 08/25/16 at 12:45; Stop 08/27/16 at 13:18; Status DC Info (PHARMACY MONITORING -- do not chart) 1 each PRN DAILY PRN MC SEE COMMENTS ; Start 08/25/16 at 12:45; Stop 08/27/16 at 13:18; Status DC Warfarin Sodium (Coumadin) 4 mg 1X WARF ONCE PO Last administered on 16:11; Start 08/25/16 at 16:00; Stop 08/25/16 at 16:01; Status DC Tramadol HCl (Ultram) 50 mg PRN TID PRN PO PAIN Last administered on 08/29/16 19:58; Start 08/25/16 at 15:45 Info (PHARMACY MONITORING -- do not chart) 1 each PRN DAILY PRN MC SEE COMMENTS ; Start 08/26/16 at 06:45; Stop 08/27/16 at 13:18; Status DC Warfarin Sodium (Coumadin) 4 mg 1X WARF ONCE PO Last administered on 17:13; Start 08/26/16 at 16:00; Stop 08/26/16 at 16:01; Status DC Info (PHARMACY MONITORING -- do not chart) 1 each PRN DAILY PRN MC SEE COMMENTS ; Start 08/27/16 at 08:00; Status UNV Info (PHARMACY MONITORING -- do not chart) 1 each PRN DAILY PRN MC SEE COMMENTS ; Start 08/27/16 at 08:00; Status Cancel Warfarin Sodium (Coumadin) 4 mg 1X WARF ONCE PO Last administered on 18:32; Start 08/27/16 at 16:00; Stop 08/27/16 at 16:01; Status DC Warfarin Sodium 3 mg 3 mg 1X WARF ONCE PO Last administered on 08/28/16 17:15 ; Start 08/28/16 at 16:00; Stop 08/28/16 at 16:01; Status DC Sodium Chloride (Iv Sodium Chloride 0.9% 1000ml Bag) 1,000 ml @ 1,000 mls/hr Q1H PRN IV hypotension; Start 08/28/16 at 10:42; Stop 08/28/16 at 16:41; Status DC Sodium Chloride (Normal Saline Flush) 10 ml 1X PRN PRN IV AP catheter pack; Start 08/28/16 at 10:45; Stop 08/29/16 at 10:44; Status DC Sodium Chloride (Normal Saline Flush) 10 ml 1X PRN PRN IV [employer]PRENTICE catheter pack; Start 08/28/16 at 10:45; Stop 08/29/16 at 10:44; Status DC Info (PHARMACY MONITORING -- do not chart) 1 each PRN DAILY PRN MC SEE COMMENTS ; Start 08/28/16 at 10:45; Status UNV Info (PHARMACY MONITORING -- do not chart) 1 each PRN DAILY PRN MC SEE COMMENTS ; Start 08/28/16 at 10:45; Status UNV Warfarin Sodium (Coumadin) 2.5 mg 1X WARF ONCE PO Last administered on 17:00; Start 08/29/16 at 16:00; Stop 08/29/16 at 16:01; Status DC Warfarin Sodium (Coumadin) 2 mg 1X WARF ONCE PO Last administered on 17:58; Start 08/30/16 at 16:00; Stop 08/30/16 at 16:01; Status DC Artificial Tears (Artificial Tears) 1 drop PRN Q15MIN PRN OU DRY EYE Last administered on 08/30/16t 21:21; Start 08/30/16 at 18:00 Info (PHARMACY MONITORING -- do not chart) 1 each PRN DAILY PRN MC SEE COMMENTS ; Start 08/31/16 at 08:15 Info (PHARMACY MONITORING -- do not chart) 1 each PRN DAILY PRN MC SEE COMMENTS ; Start 08/31/16 at 08:15; Status UNV Warfarin Sodium (Coumadin - No Dose Today) 1 each 1X WARF ONCE MC ; Start 08/31 at 16:00; Stop 08/31/16 at 16:01; Status DC Active Scripts Active Entresto 24 mg-26 mg Tablet (Sacubitril/Valsartan) 1 Each Tablet 1 Tab PO BID Coumadin (Warfarin Sodium) 2.5 Mg Tablet 2.5 Mg PO DAILY16 Reported Reglan (Metoclopramide Hcl) 10 Mg Tablet 5 Mg PO PRN BID PRN Atorvastatin Calcium 40 Mg Tablet 1 Tab PO DAILY Colestid (Colestipol Hcl) 1 Gm Tablet 1 Gm PO TID Pacerone (Amiodarone Hcl) 200 Mg Tablet 200 Mg PO DAILY Lasix (Furosemide) 80 Mg Tablet 1 Tab PO BID Gabapentin 100 Mg Capsule 1 Cap PO TID Aspir 81 (Aspirin) 81 Mg Tablet.dr 1 Tab PO DAILY Coreg (Carvedilol) 6.25 Mg Tablet 1 Tab PO BID K-Tab ER (Potassium Chloride) 20 Meq Tablet.er 20 Meq PO BID Vitals/I & O Vital Sign - Last 24 Hours 08/31/16 08/31/16 08/31/16 08/31/16 14:46 18:14 19:26 20:30 Temp 98.0 97.9 98.0 97.9 Pulse 68 68 68 Resp 21 22 B/P 91/50 91/50 97/55 Pulse Ox 98 94 O2 Delivery Room Air Room Air Room Air O2 Flow Rate 2.0 08/31/16 09/01/16 09/01/16 09/01/16 23:01 03:00 07:00 07:40 Temp 98.0 98.1 98.1 98.0 98.1 98.1 Pulse 64 70 65 Resp 16 16 19 B/P 101/61 111/56 97/55 Pulse Ox 99 96 98 O2 Delivery Room Air Room Air Room Air Room Air O2 Flow Rate 2.0 09/01/16 09/01/16 09/01/16 08:59 08:59 10:43 Temp 97.9 97.9 Pulse 65 65 65 Resp 17 B/P 97/55 97/55 101/66 Pulse Ox 98 O2 Delivery Room Air Intake and Output 08/31/16 08/31/16 09/01/16 15:00 23:00 07:00 Intake Total 480 ml 170 ml Output Total 50 ml 50 ml Balance 430 ml 120 ml HEATHER CHERRY MD Sep 01, 2016 13:52
[2016-09-01 15:36] VITALS: BP 99/61
[2016-09-01] MEDS ORDERED: WARFARIN 2 MG TABLET. PO ONE (16:00)
[2016-09-01 19:14] VITALS: BP 100/63
[2016-09-01] MEDS: ZOLPIDEM 5 MG TABLET. PO PRN (21:24)
[2016-09-01] MEDS: ATORVASTATIN CALCIUM 40 MG TABLET. PO SCH (21:24)
[2016-09-01 22:46] VITALS: BP 114/73
[2016-09-02 02:39] VITALS: BP 100/66
[2016-09-02 05:44] LABS: INR 2.4 (0.8-1.1); PROTHROMBIN TIME PATIENT 24.3 SEC (11.7-14.0)
[2016-09-02 07:16] VITALS: BP 97/67
[2016-09-02] MEDS: INSULIN ASPART 300 UNITS/3 ML INSULN.PEN SQ SCH ×3 (08:00→17:00)
--- NOTE | 2016-09-02 09:18 | PDOC ---
PROGRESS NOTES Subjective Subjective No new complaints. Objective Objective Vital Signs Date Time Temp Pulse Resp B/P Pulse Ox O2 Delivery O2 Flow Rate FiO2 09/02/16 07:16 98.2 72 18 97/67 95 Room Air 98.2 09/01/16 07:40 2.0 Intake and Output 09/02/16 07:00 Intake Total 500 ml Output Total 0 ml Balance 500 ml Intake Oral 500 ml Output Urine Total 0 ml Physical Exam Physical Exam She is alert and comfortable,supine on dialysis bed with PRAFO boot to right foot and Ro[place] boot to left foot in place and she requires physical assistance with transfers and walking with physical therapy for about 50'. Assessment Assessment Problems Medical Problems: (1) Acute on chronic renal failure Status: Acute Plan Plan of Care To home with her daughter in [facility] on 09/06/2016. Comment Review of Relevant I have reviewed the following items marquise (where applicable) has been applied. Labs Laboratory Tests Test 08/31/16 11:46 08/31/16 17:12 08/31/16 21:17 09/01/16 05:00 Glucose (Fingerstick) 100mg/dL (70-99) 135mg/dL (70-99) 135mg/dL (70-99) Prothrombin Time 28.5SEC (11.7-14.0) Prothromb Time International Ratio 2.9 (0.8-1.1) Test 09/01/16 07:53 09/01/16 11:36 09/01/16 17:30 09/01/16 20:57 Glucose (Fingerstick) 116mg/dL (70-99) 160mg/dL (70-99) 133mg/dL (70-99) 148mg/dL (70-99) Test 09/02/16 05:20 09/02/16 07:43 Prothrombin Time 24.3SEC (11.7-14.0) Prothromb Time International Ratio 2.4 (0.8-1.1) Glucose (Fingerstick) 106mg/dL (70-99) Laboratory Tests Test 09/01/16 11:36 09/01/16 17:30 09/01/16 20:57 09/02/16 05:20 Glucose (Fingerstick) 160mg/dL (70-99) 133mg/dL (70-99) 148mg/dL (70-99) Prothrombin Time 24.3SEC (11.7-14.0) Prothromb Time International Ratio 2.4 (0.8-1.1) Test 09/02/16 07:43 Glucose (Fingerstick) 106mg/dL (70-99) Microbiology 08/15/16 Urine Culture - Final, Complete 08/15/16 Urine Culture Result 1 (JV) - Final, Complete 08/15/16 Urine Culture Result 2 (JV) - Final, Complete 08/15/16 Antimicrobic Susceptibility - Final, Complete Medications Current Medications Insulin Aspart (Novolog) 0-5 UNITS TIDWMEALS SQ Last administered on 08/30/16 12:00; Start 08/14/16 at 17:30 Dextrose 12.5 gm 12.5 gm PRN Q15MIN PRN IV SEE COMMENTS; Start 08/14/16 at 16: 45 Sodium Chloride (Iv Sodium Chloride 0.9% 1000ml Bag) 1,000 ml @ 100 mls/hr Q10H IV Last administered on 08/14/16 18:53; Start 08/14/16 at 17:30; Stop 08/15/16 at 03:29; Status DC Amiodarone HCl (Cordarone) 200 mg DAILY PO Last administered on 09/01/16 08:59 ; Start 08/15/16 at 09:00 Aspirin (Ecotrin) 81 mg DAILY PO Last administered on 09/01/16 08:59; Start at 09:00 Atorvastatin Calcium (Lipitor) 40 mg QHS PO Last administered on 09/01/16 21: 24; Start 08/14/16 at 21:00 Carvedilol (Coreg) 6.25 mg BIDWMEALS PO Last administered on 09/01/16 17:48; Start 08/14/16 at 17:30 Colestipol HCl (Colestid) 1 gm TID PO Last administered on 08/17/16 20:55; Start 08/14/16 at 21:00; Stop 08/18/16 at 10:08; Status DC Metoclopramide HCl (Reglan) 5 mg PRN BID PRN PO NAUSEA; Start 08/14/16 at 16:45 ; Stop 08/16/16 at 10:25; Status DC Sacubitril/ Valsartan (Entresto 24 Mg-26 Mg) 1 tab BID PO Last administered on 08/17/16 09:14; Start 08/14/16 at 21:00; Stop 08/17/16 at 10:16; Status DC Warfarin Sodium (Coumadin) 2.5 mg DAILY16 PO Last administered on 08/14/16 18: 50; Start 08/14/16 at 18:00; Stop 08/15/16 at 14:13; Status DC Warfarin Sodium (Coumadin Per Physician) 1 each PRN DAILY PRN MC SEE COMMENTS; Start 08/14/16 at 17:15; Stop 08/15/16 at 09:54; Status DC Sodium Polystyrene Sulfonate (Kayexalate) 60 gm 1X ONCE PO Last administered on 08/14/16 18:51; Start 08/14/16 at 18:30; Stop 08/14/16 at 18:31; Status DC Warfarin Sodium (Coumadin Per Pharmacy) 1 each PRN DAILY PRN MC SEE COMMENTS Last administered on 09/02/16 08:05; Start 08/15/16 at 10:00 Pantoprazole Sodium 40 mg 40 mg DAILYAC PO Last administered on 09/01/16 08:59 ; Start 08/15/16 at 11:30 Dobutamine HCl/ Dextrose 250 ml @ 0 mls/hr CONT PRN IV ; Start 08/15/16 at 14:00 ; Stop 08/15/16 at 14:53; Status DC Albumin Human (Albuminar) 100 ml @ 100 mls/hr 1X ONCE IV Last administered on 08/15/16 15:25; Start 08/15/16 at 14:00; Stop 08/15/16 at 14:59; Status DC Furosemide 40 mg 40 mg 1X ONCE IVP Last administered on 08/15/16 16:22; Start 08/15/16 at 15:00; Stop 08/15/16 at 15:01; Status DC Albumin Human (Albuminar) 100 ml @ 100 mls/hr 1X ONCE IV Last administered on 08/16/16 08:41; Start 08/16/16 at 09:00; Stop 08/16/16 at 09:59; Status DC Furosemide (Lasix) 40 mg 1X ONCE IVP Last administered on 08/16/16 09:45; Start 08/16/16 at 10:00; Stop 08/16/16 at 10:01; Status DC Warfarin Sodium 4 mg 4 mg 1X WARF ONCE PO Last administered on 08/15/16 16:33 ; Start 08/15/16 at 16:00; Stop 08/15/16 at 16:01; Status DC Dobutamine HCl/ Dextrose 250 ml @ 0 mls/hr CONT PRN PRN IV SEE I/O RECORD Last administered on 08/31/16 22:13; Start 08/15/16 at 14:53 Sodium Bicarbonate 50 meq 50 meq Q2HR IV Last administered on 08/15/16 18:20; Start 08/15/16 at 16:00; Stop 08/15/16 at 18:30; Status DC Magnesium Sulfate/ Dextrose (Magnesium Sulfate PREMIX 2GM) 50 ml @ 25 mls/hr PRN DAILY PRN IV for Mag < 1.7 on am labs; Start 08/15/16 at 15:30 Warfarin Sodium (Coumadin) 4 mg 1X WARF ONCE PO Last administered on 08/16/16 17:28; Start 08/16/16 at 16:00; Stop 08/16/16 at 16:01; Status DC Ondansetron HCl 4 mg 4 mg PRN Q6HRS PRN IV nausea Last administered on 00:53; Start 08/16/16 at 20:30 Ceftriaxone Sodium 1 gm/ Sodium Chloride 50 ml @ 100 mls/hr Q24H IV Last administered on 08/19/16 10:00; Start 08/17/16 at 10:00; Stop 08/19/16 at 12:56; Status DC Sodium Chloride (Iv Sodium Chloride 0.9% 1000ml Bag) 1,000 ml @ 75 mls/hr [id number] IV Last administered on 08/19/16 16:58; Start 08/17/16 at 10:15; Stop at 09:27; Status DC Warfarin Sodium (Coumadin) 5 mg 1X WARF ONCE PO ; Start 08/17/16 at 16:00; Stop 08/17/16 at 16:01; Status DC Heparin Sodium/ Sodium Chloride 1,000 unit 1X ONCE IART Last administered on 11:45; Start 08/18/16 at 11:30; Stop 08/18/16 at 11:31; Status DC Midazolam HCl (Versed) 2 mg 1X ONCE IV Last administered on 08/18/16 11:46; Start 08/18/16 at 11:30; Stop 08/18/16 at 11:31; Status DC Fentanyl Citrate (Fentanyl 2ml Vial) 100 mcg 1X ONCE IV Last administered on 11:47; Start 08/18/16 at 11:30; Stop 08/18/16 at 11:31; Status DC Lidocaine/ Epinephrine 15 ml 15 ml 1X ONCE IJ Last administered on 08/18/16 11 :44; Start 08/18/16 at 11:30; Stop 08/18/16 at 11:31; Status DC Vancomycin HCl 250 ml @ 250 mls/hr 1X ONCE IRR Last administered on 08/18/16 11:45; Start 08/18/16 at 11:30; Stop 08/18/16 at 12:29; Status DC Heparin Sodium (Porcine) (Hep Lock Adult) 500 unit 1X ONCE IV Last administered on 08/18/16 11:46; Start 08/18/16 at 11:30; Stop 08/18/16 at 11:31; Status DC Heparin Sodium (Porcine) (Hep Lock Adult) 500 unit STK-MED ONCE IV ; Start at 09:29; Stop 08/18/16 at 11:42; Status DC Lidocaine/ Epinephrine 20 ml 20 ml STK-MED ONCE .ROUTE ; Start 08/18/16 at 09:29 ; Stop 08/18/16 at 11:42; Status DC Heparin Sodium/ Sodium Chloride 500 ml @ As Directed STK-MED ONCE .ROUTE ; Start 08/18/16 at 09:29; Stop 08/18/16 at 11:42; Status DC Vancomycin HCl 250 ml @ As Directed STK-MED ONCE .ROUTE ; Start 08/18/16 at 09: 29; Stop 08/18/16 at 11:42; Status DC Fentanyl Citrate (Fentanyl 2ml Vial) 100 mcg STK-MED ONCE .ROUTE ; Start at 10:29; Stop 08/18/16 at 11:43; Status DC Midazolam HCl 2 mg 2 mg STK-MED ONCE .ROUTE ; Start 08/18/16 at 10:30; Stop at 11:43; Status DC Iron Sucrose/ Sodium Chloride (Venofer/Iv Sodium Chloride 0.9% 100ml) 110 ml @ 55 mls/hr 3X/WEEK IV Last administered on 08/28/16 09:10; Start 08/19/16 at 09: 00; Stop 08/28/16 at 10:59; Status DC Warfarin Sodium (Coumadin) 5 mg 1X WARF ONCE PO Last administered on 08/18/16 17:56; Start 08/18/16 at 16:00; Stop 08/18/16 at 16:01; Status DC Warfarin Sodium (Coumadin) 3 mg 1X WARF ONCE PO ; Start 08/19/16 at 16:00; Stop 08/19/16 at 16:01; Status Cancel Cefpodoxime Proxetil (Vantin) 100 mg BID PO Last administered on 08/26/16 20: 40; Start 08/19/16 at 21:00; Stop 08/26/16 at 21:01; Status DC Warfarin Sodium (Coumadin) 2.5 mg 1X WARF ONCE PO Last administered on 16:59; Start 08/19/16 at 16:00; Stop 08/19/16 at 16:01; Status DC Senna/Docusate Sodium 1 tab 1 tab PRN BID PRN PO CONSTIPATION Last administered on 08/20/16 14:18; Start 08/19/16 at 13:30; Stop 08/20/16 at 14:43; Status DC Sodium Chloride 250 ml @ 0 mls/hr 1X ONCE IV Last administered on 08/19/16 14: 33; Start 08/19/16 at 13:45; Stop 08/19/16 at 13:53; Status DC Sodium Chloride (Iv Sodium Chloride 0.9% 500ml Bag) 500 ml @ 0 mls/hr 1X ONCE IV Last administered on 08/19/16 16:58; Start 08/19/16 at 16:00; Stop 08/19/16 at 16:01; Status DC Senna/Docusate Sodium (Senna Plus) 1 tab PRN BID PRN PO CONSTIPATION Last administered on 08/28/16 16:20; Start 08/20/16 at 10:00 Bisacodyl (Dulcolax Supp) 10 mg 1X ONCE [place] ; Start 08/20/16 at 11:00; Stop at 11:00; Status DC Bisacodyl (Dulcolax Supp) 10 mg 1X ONCE [place] Last administered on 08/20/16 16:49 ; Start 08/20/16 at 14:30; Stop 08/20/16 at 14:31; Status DC Warfarin Sodium (Coumadin) 2 mg 1X WARF ONCE PO Last administered on 08/20/16 16:48; Start 08/20/16 at 16:00; Stop 08/20/16 at 16:01; Status DC Mineral Oil (Fleet Mineral Oil) 133 ml 1X ONCE [place] ; Start 08/21/16 at 20:00; Stop 08/21/16 at 20:00; Status DC Non-Formulary Medication 1 ea Q4H PO Last administered on 08/21/16 16:18; Start 08/21/16 at 12:00; Stop 08/21/16 at 16:01; Status DC Sodium Bicarbonate 50 meq Q6H IV Last administered on 08/21/16 20:16; Start 08/21/16 at 14:00; Stop 08/21/16 at 20:01; Status DC Warfarin Sodium (Coumadin) 3 mg 1X WARF ONCE PO Last administered on 08/21/16 16:16; Start 08/21/16 at 16:00; Stop 08/21/16 at 16:01; Status DC Warfarin Sodium (Coumadin) 2.5 mg 1X WARF ONCE PO Last administered on 16:00; Start 08/22/16 at 16:00; Stop 08/22/16 at 16:01; Status DC Warfarin Sodium (Coumadin) 3 mg 1X WARF ONCE PO Last administered on 08/23/16 18:28; Start 08/23/16 at 16:00; Stop 08/23/16 at 16:01; Status DC Lidocaine/ Epinephrine (Xylocaine 2%-Epi 1:100,000) 20 ml STK-MED ONCE .ROUTE ; Start 08/24/16 at 10:54; Stop 08/24/16 at 10:55; Status DC Heparin Sodium (Porcine) 39144 unit 10,000 unit STK-MED ONCE .ROUTE ; Start 03/02 at 10:54; Stop 08/24/16 at 10:55; Status DC Heparin Sodium/ Sodium Chloride 500 ml @ As Directed STK-MED ONCE .ROUTE ; Start 08/24/16 at 10:54; Stop 08/24/16 at 10:55; Status DC Darbepoetin Dino (Aranesp) 60 mcg WEEKLYHS SQ Last administered on 08/31/16 21 :27; Start 08/24/16 at 21:00 Fentanyl Citrate (Fentanyl 2ml Vial) 100 mcg STK-MED ONCE .ROUTE ; Start at 11:26; Stop 08/24/16 at 11:27; Status DC Midazolam HCl 2 mg 2 mg STK-MED ONCE .ROUTE ; Start 08/24/16 at 11:26; Stop 03/02 at 11:27; Status DC Cefazolin Sodium (Ancef 1gm Ivpb For Omni) 0 ml @ As Directed STK-MED ONCE IV ; Start 08/24/16 at 11:26; Stop 08/24/16 at 11:27; Status DC Heparin Sodium/ Sodium Chloride 1,000 unit 1X ONCE IART Last administered on 12:23; Start 08/24/16 at 11:45; Stop 08/24/16 at 11:46; Status DC Lidocaine/ Epinephrine (Xylocaine 2%-Epi 1:100,000) 20 ml 1X ONCE IJ Last administered on 08/24/16 12:23; Start 08/24/16 at 11:45; Stop 08/24/16 at 11:46 ; Status DC Fentanyl Citrate (Fentanyl 2ml Vial) 100 mcg STK-MED ONCE .ROUTE ; Start at 11:58; Stop 08/24/16 at 11:59; Status DC Midazolam HCl (Versed) 2 mg STK-MED ONCE .ROUTE ; Start 08/24/16 at 11:58; Stop 08/24/16 at 11:59; Status DC Heparin Sodium (Porcine) (Heparin Sodium) 4,300 unit 1X ONCE IV Last administered on 08/24/16 12:15; Start 08/24/16 at 12:15; Stop 08/24/16 at 12:21 ; Status DC Midazolam HCl (Versed) 2 mg 1X ONCE IV Last administered on 08/24/16 12:30; Start 08/24/16 at 12:30; Stop 08/24/16 at 12:31; Status DC Fentanyl Citrate 100 mcg 100 mcg 1X ONCE IV Last administered on 08/24/16 12: 30; Start 08/24/16 at 12:30; Stop 08/24/16 at 12:31; Status DC Cefazolin Sodium (Ancef 1gm Ivpb For Omni) 50 ml @ 100 mls/hr 1X ONCE IV Last administered on 08/24/16 12:29; Start 08/24/16 at 12:30; Stop 08/24/16 at 12:59; Status DC Warfarin Sodium (Coumadin) 4 mg 1X WARF ONCE PO Last administered on 18:08; Start 08/24/16 at 16:00; Stop 08/24/16 at 16:01; Status DC Mineral Oil (Fleet Mineral Oil) 133 ml PRN DAILY PRN [place] CONSTIPATION; Start 03/02 at 19:30 Info (PHARMACY MONITORING -- do not chart) 1 each PRN DAILY PRN MC SEE COMMENTS ; Start 08/25/16 at 12:45; Stop 08/27/16 at 13:18; Status DC Info (PHARMACY MONITORING -- do not chart) 1 each PRN DAILY PRN MC SEE COMMENTS ; Start 08/25/16 at 12:45; Stop 08/27/16 at 13:18; Status DC Warfarin Sodium (Coumadin) 4 mg 1X WARF ONCE PO Last administered on 16:11; Start 08/25/16 at 16:00; Stop 08/25/16 at 16:01; Status DC Tramadol HCl (Ultram) 50 mg PRN TID PRN PO PAIN Last administered on 08/29/16 19:58; Start 08/25/16 at 15:45 Info (PHARMACY MONITORING -- do not chart) 1 each PRN DAILY PRN MC SEE COMMENTS ; Start 08/26/16 at 06:45; Stop 08/27/16 at 13:18; Status DC Warfarin Sodium (Coumadin) 4 mg 1X WARF ONCE PO Last administered on 17:13; Start 08/26/16 at 16:00; Stop 08/26/16 at 16:01; Status DC Info (PHARMACY MONITORING -- do not chart) 1 each PRN DAILY PRN MC SEE COMMENTS ; Start 08/27/16 at 08:00; Status UNV Info (PHARMACY MONITORING -- do not chart) 1 each PRN DAILY PRN MC SEE COMMENTS ; Start 08/27/16 at 08:00; Status Cancel Warfarin Sodium (Coumadin) 4 mg 1X WARF ONCE PO Last administered on 18:32; Start 08/27/16 at 16:00; Stop 08/27/16 at 16:01; Status DC Warfarin Sodium 3 mg 3 mg 1X WARF ONCE PO Last administered on 08/28/16 17:15 ; Start 08/28/16 at 16:00; Stop 08/28/16 at 16:01; Status DC Sodium Chloride (Iv Sodium Chloride 0.9% 1000ml Bag) 1,000 ml @ 1,000 mls/hr Q1H PRN IV hypotension; Start 08/28/16 at 10:42; Stop 08/28/16 at 16:41; Status DC Sodium Chloride (Normal Saline Flush) 10 ml 1X PRN PRN IV AP catheter pack; Start 08/28/16 at 10:45; Stop 08/29/16 at 10:44; Status DC Sodium Chloride (Normal Saline Flush) 10 ml 1X PRN PRN IV DOOR CUTTER catheter pack; Start 08/28/16 at 10:45; Stop 08/29/16 at 10:44; Status DC Info (PHARMACY MONITORING -- do not chart) 1 each PRN DAILY PRN MC SEE COMMENTS ; Start 08/28/16 at 10:45; Status UNV Info (PHARMACY MONITORING -- do not chart) 1 each PRN DAILY PRN MC SEE COMMENTS ; Start 08/28/16 at 10:45; Status UNV Warfarin Sodium (Coumadin) 2.5 mg 1X WARF ONCE PO Last administered on 17:00; Start 08/29/16 at 16:00; Stop 08/29/16 at 16:01; Status DC Warfarin Sodium (Coumadin) 2 mg 1X WARF ONCE PO Last administered on 17:58; Start 08/30/16 at 16:00; Stop 08/30/16 at 16:01; Status DC Artificial Tears (Artificial Tears) 1 drop PRN Q15MIN PRN OU DRY EYE Last administered on 08/30/16 21:21; Start 08/30/16 at 18:00 Info (PHARMACY MONITORING -- do not chart) 1 each PRN DAILY PRN MC SEE COMMENTS ; Start 08/31/16 at 08:15 Info (PHARMACY MONITORING -- do not chart) 1 each PRN DAILY PRN MC SEE COMMENTS ; Start 08/31/16 at 08:15; Status UNV Warfarin Sodium (Coumadin - No Dose Today) 1 each 1X WARF ONCE MC ; Start 08/31 at 16:00; Stop 08/31/16 at 16:01; Status DC Warfarin Sodium (Coumadin) 2 mg 1X WARF ONCE PO Last administered on t 17:47; Start 09/01/16 at 16:00; Stop 09/01/16 at 16:01; Status DC Zolpidem Tartrate (Ambien) 5 mg PRN QHS PRN PO INSOMNIA, MAY REPEAT IN 1HR Last administered on 09/01/16t 21:24; Start 09/01/16 at 21:00 Warfarin Sodium (Coumadin) 3 mg 1X WARF ONCE PO ; Start 09/02/16 at 16:00; Stop 09/02/16 at 16:01 Active Scripts Active Entresto 24 mg-26 mg Tablet (Sacubitril/Valsartan) 1 Each Tablet 1 Tab PO BID Coumadin (Warfarin Sodium) 2.5 Mg Tablet 2.5 Mg PO DAILY16 Reported Reglan (Metoclopramide Hcl) 10 Mg Tablet 5 Mg PO PRN BID PRN Atorvastatin Calcium 40 Mg Tablet 1 Tab PO DAILY Colestid (Colestipol Hcl) 1 Gm Tablet 1 Gm PO TID Pacerone (Amiodarone Hcl) 200 Mg Tablet 200 Mg PO DAILY Lasix (Furosemide) 80 Mg Tablet 1 Tab PO BID Gabapentin 100 Mg Capsule 1 Cap PO TID Aspir 81 (Aspirin) 81 Mg Tablet.dr 1 Tab PO DAILY Coreg (Carvedilol) 6.25 Mg Tablet 1 Tab PO BID K-Tab ER (Potassium Chloride) 20 Meq Tablet.er 20 Meq PO BID Vitals/I & O Vital Sign - Last 24 Hours 09/01/16 09/01/16 09/01/16 09/01/16 10:43 15:36 17:48 19:14 Temp 97.9 98.0 98.2 97.9 98.0 98.2 Pulse 65 72 72 Resp 17 18 20 B/P 101/66 99/61 99/61 100/63 Pulse Ox 98 100 97 O2 Delivery Room Air Room Air Room Air 09/01/16 09/01/16 09/02/16 09/02/16 19:15 22:46 02:39 07:16 Temp 98.1 97.5 98.2 98.1 97.5 98.2 Pulse 68 71 72 Resp 20 18 18 B/P 114/73 100/66 97/67 Pulse Ox 97 98 95 O2 Delivery Room Air Room Air Room Air Room Air Intake and Output 09/01/16 09/01/16 09/02/16 15:00 23:00 07:00 Intake Total 500 ml Output Total 0 ml Balance 500 ml 0 ml MADDIE AMBROSE MD Sep 02, 2016 09:18
--- NOTE | 2016-09-02 10:10 | PDOC ---
Dialysis Progress Note Dialysis Note Dialysis Note SONA/ ATN in setting of SEv Cardiomyoaphty - --> ? ESRD Seen on Hemodialysis, tolerating treatment Okay Vitals on Hemodialysis: 102/67 83 afeb on Dobutamin e gtt General Appearance: Awake: Alert Oriented x 3 Neck: min JVD or ++ JVP Chest: CTA Matthew Heart: S1 S2; sys Murmur Abdomen - Soft NTND Extremities - No Edema ESRD v/s ARF/ ATN : Dialysis as below F 180 NR 3.0 Hrs 3 K 2.5 Ca 140 Na 35 HC03 Qb 350 + Qd 500+ Heparin 0 Units Uf 0.5- 1.0 Kgs or to dry weight as tolerated May give 25-50 gms of 25% Albumin if needed to maintain Hemodynamic stability Treatment plan reviewed and discussed with river tester Vitals Vital Signs Vital Signs Date Time Temp Pulse Resp B/P Pulse Ox O2 Delivery O2 Flow Rate FiO2 09/02/16 07:16 98.2 72 18 97/67 95 Room Air 98.2 09/01/16 07:40 2.0 Labs Last Labs Laboratory Tests Test 08/31/16 11:46 08/31/16 17:12 08/31/16 21:17 09/01/16 05:00 Glucose (Fingerstick) 100mg/dL (70-99) 135mg/dL (70-99) 135mg/dL (70-99) Prothrombin Time 28.5SEC (11.7-14.0) Prothromb Time International Ratio 2.9 (0.8-1.1) Test 09/01/16 07:53 09/01/16 11:36 09/01/16 17:30 09/01/16 20:57 Glucose (Fingerstick) 116mg/dL (70-99) 160mg/dL (70-99) 133mg/dL (70-99) 148mg/dL (70-99) Test 09/02/16 05:20 09/02/16 07:43 Prothrombin Time 24.3SEC (11.7-14.0) Prothromb Time International Ratio 2.4 (0.8-1.1) Glucose (Fingerstick) 106mg/dL (70-99) Laboratory Tests Test 09/01/16 11:36 09/01/16 17:30 09/01/16 20:57 09/02/16 05:20 Glucose (Fingerstick) 160mg/dL (70-99) 133mg/dL (70-99) 148mg/dL (70-99) Prothrombin Time 24.3SEC (11.7-14.0) Prothromb Time International Ratio 2.4 (0.8-1.1) Test 09/02/16 07:43 Glucose (Fingerstick) 106mg/dL (70-99) Assessment Assessment Problems Medical Problems: (1) Acute on chronic renal failure Status: Acute Problems: Plan Plan of Care Problems Medical Problems: (1) Acute on chronic renal failure Status: Acute ALLI SELBY MD Sep 02, 2016 10:10
--- NOTE | 2016-09-02 10:15 | PDOC ---
PROGRESS NOTES Subjective Subjective seen in dialysis, voices no complaints Objective Objective Vital Signs Date Time Temp Pulse Resp B/P Pulse Ox O2 Delivery O2 Flow Rate FiO2 09/02/16 07:16 98.2 72 18 97/67 95 Room Air 98.2 09/01/16 07:40 2.0 Intake and Output 09/02/16 07:00 Intake Total 500 ml Output Total 0 ml Balance 500 ml Intake Oral 500 ml Output Urine Total 0 ml Physical Exam Abdomen: Normal bowel sounds, Soft, No tenderness Heart: Regular rate, Normal S1, Normal S2, Other (1-2/6 systolic murmur) Extremities: No clubbing, No cyanosis General: Alert, Oriented X3, Cooperative, No acute distress HEENT: Atraumatic, PERRLA Lungs: Clear to auscultation MUSCULOSKELETAL: No joint tenderness, No deformity, No muscular tenderness noted Neck: Supple Neuro: Normal speech Psych/Mental Status: Mood NL Skin: No rashes, No significant lesion Diagnosis Problem List Problems Medical Problems: (1) Acute on chronic renal failure Status: Acute Assessment Assessment New ESRD on dialysis,started on dialysis last week * urinary retention improved. ac on crf. possible ATN 1. ARF with CKD II ATN SONA on HD 2. a/c systolic CHF ICM EF 10% AICD 3. HTN 4. DM II with CKD II diet control 5. hyperlipidemia 6. mild to mod MR 7. moderate pulmonary HTN 8. severe weakness and debility 9. metabolic encephalopathy POA 10. moderate chronic PCL malnutrition 11.PVD PLAN:dialysis today. spoke with social work today waiting for dialysis slot to be opened ,close to her daughters place in [place], [place]. plans to move wednesday or wednesday Improving slowly. INR 32 Adjust Coumadin. dobutamine infusions 3 times a week Problems: Plan Plan of Care Problems Medical Problems: (1) Acute on chronic renal failure Status: Acute Comment Review of Relevant I have reviewed the following items marquise (where applicable) has been applied. Labs Laboratory Tests Test 09/01/16 11:36 09/01/16 17:30 09/01/16 20:57 09/02/16 05:20 Glucose (Fingerstick) 160mg/dL (70-99) 133mg/dL (70-99) 148mg/dL (70-99) Prothrombin Time 24.3SEC (11.7-14.0) Prothromb Time International Ratio 2.4 (0.8-1.1) Test 09/02/16 07:43 Glucose (Fingerstick) 106mg/dL (70-99) Microbiology 08/15/16 Urine Culture - Final, Complete 08/15/16 Urine Culture Result 1 (JV) - Final, Complete 08/15/16 Urine Culture Result 2 (JV) - Final, Complete 08/15/16 Antimicrobic Susceptibility - Final, Complete Medications Current Medications Warfarin Sodium (Coumadin) 2 mg 1X WARF ONCE PO Last administered on 17:47; Start 09/01/16 at 16:00; Stop 09/01/16 at 16:01; Status DC Warfarin Sodium (Coumadin) 3 mg 1X WARF ONCE PO ; Start 09/02/16 at 16:00; Stop 09/02/16 at 16:01 Zolpidem Tartrate (Ambien) 5 mg PRN QHS PRN PO INSOMNIA, MAY REPEAT IN 1HR Last administered on 09/01/16 21:24; Start 09/01/16 at 21:00 Vitals/I & O Vital Sign - Last 24 Hours 09/01/16 09/01/16 09/01/16 09/01/16 10:43 15:36 17:48 19:14 Temp 97.9 98.0 98.2 97.9 98.0 98.2 Pulse 65 72 72 Resp 18 20 B/P 101/66 99/61 99/61 100/63 Pulse Ox 98 100 97 O2 Delivery Room Air Room Air Room Air 09/01/16 09/01/16 09/02/16 09/02/16 19:15 22:46 02:39 07:16 Temp 98.1 97.5 98.2 98.1 97.5 98.2 Pulse 68 71 72 Resp 18 18 B/P 114/73 100/66 97/67 Pulse Ox 97 98 95 O2 Delivery Room Air Room Air Room Air Room Air Intake and Output 09/01/16 09/01/16 09/02/16 15:00 23:00 07:00 Intake Total 500 ml Output Total 0 ml Balance 500 ml 0 ml AFSHAN SLADE MD Sep 02, 2016 10:15
[2016-09-02] MEDS ORDERED: DIALYSIS PATIENT. MC PRN (10:45)
[2016-09-02] MEDS ORDERED: IV NORMAL SALINE 1000ML BAG 1,000 ML IV PRN (10:45)
[2016-09-02] MEDS: ASPIRIN ENTERIC COATED 81 MG TABLET.DR. PO SCH (12:40)
[2016-09-02] MEDS: CARVEDILOL 6.25 MG TABLET. PO SCH ×2 (12:41→17:30)
[2016-09-02] MEDS: AMIODARONE HCL 200 MG TABLET. PO SCH (12:41)
[2016-09-02 12:49] VITALS: BP 107/70
--- NOTE | 2016-09-02 13:30 | PDOC ---
PROGRESS NOTES Subjective Subjective Patient eating lunch denying any complaints at this time. States she feels well and is ready for transfer whenever it is set up. Objective Objective Vital Signs Date Time Temp Pulse Resp B/P Pulse Ox O2 Delivery O2 Flow Rate FiO2 09/02/16 12:49 98.5 78 18 107/70 95 Room Air 98.5 09/02/16 08:00 2.0 Intake and Output 09/02/16 07:00 Intake Total 500 ml Output Total 0 ml Balance 500 ml Intake Oral 500 ml Output Urine Total 0 ml Physical Exam Physical Exam GENERAL: sitting up eating comfortably, no acute distress HEART: regular rate, no murmur noted EXTREMITIES: no pedal edema bilaterally Assessment Assessment Stable from cardiac standpoint with current Dobutamine drip dose. Problems Medical Problems: (1) Acute on chronic renal failure Status: Acute Plan Plan of Care Agree with current plan. Awaiting transfer, possibly this Wednesday. Will continue to monitor. Dobutamine drip to be set up outpatient for 2 times a week for 3 hours. Comment Review of Relevant I have reviewed the following items marquise (where applicable) has been applied. Labs Laboratory Tests Test 08/31/16 17:12 08/31/16 21:17 09/01/16 05:00 09/01/16 07:53 Glucose (Fingerstick) 135mg/dL (70-99) 135mg/dL (70-99) 116mg/dL (70-99) Prothrombin Time 28.5SEC (11.7-14.0) Prothromb Time International Ratio 2.9 (0.8-1.1) Test 09/01/16 11:36 09/01/16 17:30 09/01/16 20:57 09/02/16 05:20 Glucose (Fingerstick) 160mg/dL (70-99) 133mg/dL (70-99) 148mg/dL (70-99) Prothrombin Time 24.3SEC (11.7-14.0) Prothromb Time International Ratio 2.4 (0.8-1.1) Test 09/02/16 07:43 09/02/16 12:34 Glucose (Fingerstick) 106mg/dL (70-99) 85mg/dL (70-99) Laboratory Tests Test 09/01/16 17:30 09/01/16 20:57 09/02/16 05:20 09/02/16 07:43 Glucose (Fingerstick) 133mg/dL (70-99) 148mg/dL (70-99) 106mg/dL (70-99) Prothrombin Time 24.3SEC (11.7-14.0) Prothromb Time International Ratio 2.4 (0.8-1.1) Test 09/02/16 12:34 Glucose (Fingerstick) 85mg/dL (70-99) Microbiology 08/15/16 Urine Culture - Final, Complete 08/15/16 Urine Culture Result 1 (JV) - Final, Complete 08/15/16 Urine Culture Result 2 (JV) - Final, Complete 08/15/16 Antimicrobic Susceptibility - Final, Complete Medications Current Medications Insulin Aspart (Novolog) 0-5 UNITS TIDWMEALS SQ Last administered on 08/30/16 12:00; Start 08/14/16 at 17:30 Dextrose 12.5 gm 12.5 gm PRN Q15MIN PRN IV SEE COMMENTS; Start 08/14/16 at 16: 45 Sodium Chloride (Iv Sodium Chloride 0.9% 1000ml Bag) 1,000 ml @ 100 mls/hr Q10H IV Last administered on 08/14/16 18:53; Start 08/14/16 at 17:30; Stop 08/15/16 at 03:29; Status DC Amiodarone HCl (Cordarone) 200 mg DAILY PO Last administered on 09/02/16 12:41 ; Start 08/15/16 at 09:00 Aspirin (Ecotrin) 81 mg DAILY PO Last administered on 09/02/16 12:40; Start at 09:00 Atorvastatin Calcium (Lipitor) 40 mg QHS PO Last administered on 09/01/16 21: 24; Start 08/14/16 at 21:00 Carvedilol (Coreg) 6.25 mg BIDWMEALS PO Last administered on 09/02/16 12:41; Start 08/14/16 at 17:30 Colestipol HCl (Colestid) 1 gm TID PO Last administered on 08/17/16 20:55; Start 08/14/16 at 21:00; Stop 08/18/16 at 10:08; Status DC Metoclopramide HCl (Reglan) 5 mg PRN BID PRN PO NAUSEA; Start 08/14/16 at 16:45 ; Stop 08/16/16 at 10:25; Status DC Sacubitril/ Valsartan (Entresto 24 Mg-26 Mg) 1 tab BID PO Last administered on 08/17/16 09:14; Start 08/14/16 at 21:00; Stop 08/17/16 at 10:16; Status DC Warfarin Sodium (Coumadin) 2.5 mg DAILY16 PO Last administered on 08/14/16 18: 50; Start 08/14/16 at 18:00; Stop 08/15/16 at 14:13; Status DC Warfarin Sodium (Coumadin Per Physician) 1 each PRN DAILY PRN MC SEE COMMENTS; Start 08/14/16 at 17:15; Stop 08/15/16 at 09:54; Status DC Sodium Polystyrene Sulfonate (Kayexalate) 60 gm 1X ONCE PO Last administered on 08/14/16 18:51; Start 08/14/16 at 18:30; Stop 08/14/16 at 18:31; Status DC Warfarin Sodium (Coumadin Per Pharmacy) 1 each PRN DAILY PRN MC SEE COMMENTS Last administered on 09/02/16 08:05; Start 08/15/16 at 10:00 Pantoprazole Sodium 40 mg 40 mg DAILYAC PO Last administered on 09/01/16 08:59 ; Start 08/15/16 at 11:30 Dobutamine HCl/ Dextrose 250 ml @ 0 mls/hr CONT PRN IV ; Start 08/15/16 at 14:00 ; Stop 08/15/16 at 14:53; Status DC Albumin Human (Albuminar) 100 ml @ 100 mls/hr 1X ONCE IV Last administered on 08/15/16 15:25; Start 08/15/16 at 14:00; Stop 08/15/16 at 14:59; Status DC Furosemide 40 mg 40 mg 1X ONCE IVP Last administered on 08/15/16 16:22; Start 08/15/16 at 15:00; Stop 08/15/16 at 15:01; Status DC Albumin Human (Albuminar) 100 ml @ 100 mls/hr 1X ONCE IV Last administered on 08/16/16 08:41; Start 08/16/16 at 09:00; Stop 08/16/16 at 09:59; Status DC Furosemide (Lasix) 40 mg 1X ONCE IVP Last administered on 08/16/16 09:45; Start 08/16/16 at 10:00; Stop 08/16/16 at 10:01; Status DC Warfarin Sodium 4 mg 4 mg 1X WARF ONCE PO Last administered on 08/15/16 16:33 ; Start 08/15/16 at 16:00; Stop 08/15/16 at 16:01; Status DC Dobutamine HCl/ Dextrose 250 ml @ 0 mls/hr CONT PRN PRN IV SEE I/O RECORD Last administered on 09/02/16 13:15; Start 08/15/16 at 14:53 Sodium Bicarbonate 50 meq 50 meq Q2HR IV Last administered on 08/15/16 18:20; Start 08/15/16 at 16:00; Stop 08/15/16 at 18:30; Status DC Magnesium Sulfate/ Dextrose (Magnesium Sulfate PREMIX 2GM) 50 ml @ 25 mls/hr PRN DAILY PRN IV for Mag < 1.7 on am labs; Start 08/15/16 at 15:30 Warfarin Sodium (Coumadin) 4 mg 1X WARF ONCE PO Last administered on 08/16/16 17:28; Start 08/16/16 at 16:00; Stop 08/16/16 at 16:01; Status DC Ondansetron HCl 4 mg 4 mg PRN Q6HRS PRN IV nausea Last administered on 00:53; Start 08/16/16 at 20:30 Ceftriaxone Sodium 1 gm/ Sodium Chloride 50 ml @ 100 mls/hr Q24H IV Last administered on 08/19/16 10:00; Start 08/17/16 at 10:00; Stop 08/19/16 at 12:56; Status DC Sodium Chloride (Iv Sodium Chloride 0.9% 1000ml Bag) 1,000 ml @ 75 mls/hr [id number] IV Last administered on 08/19/16 16:58; Start 08/17/16 at 10:15; Stop at 09:27; Status DC Warfarin Sodium (Coumadin) 5 mg 1X WARF ONCE PO ; Start 08/17/16 at 16:00; Stop 08/17/16 at 16:01; Status DC Heparin Sodium/ Sodium Chloride 1,000 unit 1X ONCE IART Last administered on 11:45; Start 08/18/16 at 11:30; Stop 08/18/16 at 11:31; Status DC Midazolam HCl (Versed) 2 mg 1X ONCE IV Last administered on 08/18/16 11:46; Start 08/18/16 at 11:30; Stop 08/18/16 at 11:31; Status DC Fentanyl Citrate (Fentanyl 2ml Vial) 100 mcg 1X ONCE IV Last administered on 11:47; Start 08/18/16 at 11:30; Stop 08/18/16 at 11:31; Status DC Lidocaine/ Epinephrine 15 ml 15 ml 1X ONCE IJ Last administered on 08/18/16 11 :44; Start 08/18/16 at 11:30; Stop 08/18/16 at 11:31; Status DC Vancomycin HCl 250 ml @ 250 mls/hr 1X ONCE IRR Last administered on 08/18/16 11:45; Start 08/18/16 at 11:30; Stop 08/18/16 at 12:29; Status DC Heparin Sodium (Porcine) (Hep Lock Adult) 500 unit 1X ONCE IV Last administered on 08/18/16 11:46; Start 08/18/16 at 11:30; Stop 08/18/16 at 11:31; Status DC Heparin Sodium (Porcine) (Hep Lock Adult) 500 unit STK-MED ONCE IV ; Start at 09:29; Stop 08/18/16 at 11:42; Status DC Lidocaine/ Epinephrine 20 ml 20 ml STK-MED ONCE .ROUTE ; Start 08/18/16 at 09:29 ; Stop 08/18/16 at 11:42; Status DC Heparin Sodium/ Sodium Chloride 500 ml @ As Directed STK-MED ONCE .ROUTE ; Start 08/18/16 at 09:29; Stop 08/18/16 at 11:42; Status DC Vancomycin HCl 250 ml @ As Directed STK-MED ONCE .ROUTE ; Start 08/18/16 at 09: 29; Stop 08/18/16 at 11:42; Status DC Fentanyl Citrate (Fentanyl 2ml Vial) 100 mcg STK-MED ONCE .ROUTE ; Start at 10:29; Stop 08/18/16 at 11:43; Status DC Midazolam HCl 2 mg 2 mg STK-MED ONCE .ROUTE ; Start 08/18/16 at 10:30; Stop at 11:43; Status DC Iron Sucrose/ Sodium Chloride (Venofer/Iv Sodium Chloride 0.9% 100ml) 110 ml @ 55 mls/hr 3X/WEEK IV Last administered on 08/28/16 09:10; Start 08/19/16 at 09: 00; Stop 08/28/16 at 10:59; Status DC Warfarin Sodium (Coumadin) 5 mg 1X WARF ONCE PO Last administered on 08/18/16 17:56; Start 08/18/16 at 16:00; Stop 08/18/16 at 16:01; Status DC Warfarin Sodium (Coumadin) 3 mg 1X WARF ONCE PO ; Start 08/19/16 at 16:00; Stop 08/19/16 at 16:01; Status Cancel Cefpodoxime Proxetil (Vantin) 100 mg BID PO Last administered on 08/26/16 20: 40; Start 08/19/16 at 21:00; Stop 08/26/16 at 21:01; Status DC Warfarin Sodium (Coumadin) 2.5 mg 1X WARF ONCE PO Last administered on 16:59; Start 08/19/16 at 16:00; Stop 08/19/16 at 16:01; Status DC Senna/Docusate Sodium 1 tab 1 tab PRN BID PRN PO CONSTIPATION Last administered on 08/20/16 14:18; Start 08/19/16 at 13:30; Stop 08/20/16 at 14:43; Status DC Sodium Chloride 250 ml @ 0 mls/hr 1X ONCE IV Last administered on 08/19/16 14: 33; Start 08/19/16 at 13:45; Stop 08/19/16 at 13:53; Status DC Sodium Chloride (Iv Sodium Chloride 0.9% 500ml Bag) 500 ml @ 0 mls/hr 1X ONCE IV Last administered on 08/19/16 16:58; Start 08/19/16 at 16:00; Stop 08/19/16 at 16:01; Status DC Senna/Docusate Sodium (Senna Plus) 1 tab PRN BID PRN PO CONSTIPATION Last administered on 08/28/16 16:20; Start 08/20/16 at 10:00 Bisacodyl (Dulcolax Supp) 10 mg 1X ONCE [place] ; Start 08/20/16 at 11:00; Stop at 11:00; Status DC Bisacodyl (Dulcolax Supp) 10 mg 1X ONCE OH Last administered on 08/20/16 16:49 ; Start 08/20/16 at 14:30; Stop 08/20/16 at 14:31; Status DC Warfarin Sodium (Coumadin) 2 mg 1X WARF ONCE PO Last administered on 08/20/16 16:48; Start 08/20/16 at 16:00; Stop 08/20/16 at 16:01; Status DC Mineral Oil (Fleet Mineral Oil) 133 ml 1X ONCE [place] ; Start 08/21/16 at 20:00; Stop 08/21/16 at 20:00; Status DC Non-Formulary Medication 1 ea Q4H PO Last administered on 08/21/16 16:18; Start 08/21/16 at 12:00; Stop 08/21/16 at 16:01; Status DC Sodium Bicarbonate 50 meq Q6H IV Last administered on 08/21/16 20:16; Start 08/21/16 at 14:00; Stop 08/21/16 at 20:01; Status DC Warfarin Sodium (Coumadin) 3 mg 1X WARF ONCE PO Last administered on 08/21/16 16:16; Start 08/21/16 at 16:00; Stop 08/21/16 at 16:01; Status DC Warfarin Sodium (Coumadin) 2.5 mg 1X WARF ONCE PO Last administered on 16:00; Start 08/22/16 at 16:00; Stop 08/22/16 at 16:01; Status DC Warfarin Sodium (Coumadin) 3 mg 1X WARF ONCE PO Last administered on 08/23/16 18:28; Start 08/23/16 at 16:00; Stop 08/23/16 at 16:01; Status DC Lidocaine/ Epinephrine (Xylocaine 2%-Epi 1:100,000) 20 ml STK-MED ONCE .ROUTE ; Start 08/24/16 at 10:54; Stop 08/24/16 at 10:55; Status DC Heparin Sodium (Porcine) 26980 unit 10,000 unit STK-MED ONCE .ROUTE ; Start 03/02 at 10:54; Stop 08/24/16 at 10:55; Status DC Heparin Sodium/ Sodium Chloride 500 ml @ As Directed STK-MED ONCE .ROUTE ; Start 08/24/16 at 10:54; Stop 08/24/16 at 10:55; Status DC Darbepoetin Dino (Aranesp) 60 mcg WEEKLYHS SQ Last administered on 08/31/16 21 :27; Start 08/24/16 at 21:00 Fentanyl Citrate (Fentanyl 2ml Vial) 100 mcg STK-MED ONCE .ROUTE ; Start at 11:26; Stop 08/24/16 at 11:27; Status DC Midazolam HCl 2 mg 2 mg STK-MED ONCE .ROUTE ; Start 08/24/16 at 11:26; Stop 03/02 at 11:27; Status DC Cefazolin Sodium (Ancef 1gm Ivpb For Omni) 0 ml @ As Directed STK-MED ONCE IV ; Start 08/24/16 at 11:26; Stop 08/24/16 at 11:27; Status DC Heparin Sodium/ Sodium Chloride 1,000 unit 1X ONCE IART Last administered on 12:23; Start 08/24/16 at 11:45; Stop 08/24/16 at 11:46; Status DC Lidocaine/ Epinephrine (Xylocaine 2%-Epi 1:100,000) 20 ml 1X ONCE IJ Last administered on 08/24/16 12:23; Start 08/24/16 at 11:45; Stop 08/24/16 at 11:46 ; Status DC Fentanyl Citrate (Fentanyl 2ml Vial) 100 mcg STK-MED ONCE .ROUTE ; Start at 11:58; Stop 08/24/16 at 11:59; Status DC Midazolam HCl (Versed) 2 mg STK-MED ONCE .ROUTE ; Start 08/24/16 at 11:58; Stop 08/24/16 at 11:59; Status DC Heparin Sodium (Porcine) (Heparin Sodium) 4,300 unit 1X ONCE IV Last administered on 08/24/16 12:15; Start 08/24/16 at 12:15; Stop 08/24/16 at 12:21 ; Status DC Midazolam HCl (Versed) 2 mg 1X ONCE IV Last administered on 08/24/16 12:30; Start 08/24/16 at 12:30; Stop 08/24/16 at 12:31; Status DC Fentanyl Citrate 100 mcg 100 mcg 1X ONCE IV Last administered on 08/24/16 12: 30; Start 08/24/16 at 12:30; Stop 08/24/16 at 12:31; Status DC Cefazolin Sodium (Ancef 1gm Ivpb For Omni) 50 ml @ 100 mls/hr 1X ONCE IV Last administered on 08/24/16 12:29; Start 08/24/16 at 12:30; Stop 08/24/16 at 12:59; Status DC Warfarin Sodium (Coumadin) 4 mg 1X WARF ONCE PO Last administered on 18:08; Start 08/24/16 at 16:00; Stop 08/24/16 at 16:01; Status DC Mineral Oil (Fleet Mineral Oil) 133 ml PRN DAILY PRN [place] CONSTIPATION; Start 03/02 at 19:30 Info (PHARMACY MONITORING -- do not chart) 1 each PRN DAILY PRN MC SEE COMMENTS ; Start 08/25/16 at 12:45; Stop 08/27/16 at 13:18; Status DC Info (PHARMACY MONITORING -- do not chart) 1 each PRN DAILY PRN MC SEE COMMENTS ; Start 08/25/16 at 12:45; Stop 08/27/16 at 13:18; Status DC Warfarin Sodium (Coumadin) 4 mg 1X WARF ONCE PO Last administered on 16:11; Start 08/25/16 at 16:00; Stop 08/25/16 at 16:01; Status DC Tramadol HCl (Ultram) 50 mg PRN TID PRN PO PAIN Last administered on 08/29/16 19:58; Start 08/25/16 at 15:45 Info (PHARMACY MONITORING -- do not chart) 1 each PRN DAILY PRN MC SEE COMMENTS ; Start 08/26/16 at 06:45; Stop 08/27/16 at 13:18; Status DC Warfarin Sodium (Coumadin) 4 mg 1X WARF ONCE PO Last administered on 17:13; Start 08/26/16 at 16:00; Stop 08/26/16 at 16:01; Status DC Info (PHARMACY MONITORING -- do not chart) 1 each PRN DAILY PRN MC SEE COMMENTS ; Start 08/27/16 at 08:00; Status UNV Info (PHARMACY MONITORING -- do not chart) 1 each PRN DAILY PRN MC SEE COMMENTS ; Start 08/27/16 at 08:00; Status Cancel Warfarin Sodium (Coumadin) 4 mg 1X WARF ONCE PO Last administered on 18:32; Start 08/27/16 at 16:00; Stop 08/27/16 at 16:01; Status DC Warfarin Sodium 3 mg 3 mg 1X WARF ONCE PO Last administered on 08/28/16 17:15 ; Start 08/28/16 at 16:00; Stop 08/28/16 at 16:01; Status DC Sodium Chloride (Iv Sodium Chloride 0.9% 1000ml Bag) 1,000 ml @ 1,000 mls/hr Q1H PRN IV hypotension; Start 08/28/16 at 10:42; Stop 08/28/16 at 16:41; Status DC Sodium Chloride (Normal Saline Flush) 10 ml 1X PRN PRN IV AP catheter pack; Start 08/28/16 at 10:45; Stop 08/29/16 at 10:44; Status DC Sodium Chloride (Normal Saline Flush) 10 ml 1X PRN PRN IV 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; Start 08/28/16 at 10:45; Stop 08/29/16 at 10:44; Status DC Info (PHARMACY MONITORING -- do not chart) 1 each PRN DAILY PRN MC SEE COMMENTS ; Start 08/28/16 at 10:45; Status UNV Info (PHARMACY MONITORING -- do not chart) 1 each PRN DAILY PRN MC SEE COMMENTS ; Start 08/28/16 at 10:45; Status UNV Warfarin Sodium (Coumadin) 2.5 mg 1X WARF ONCE PO Last administered on 17:00; Start 08/29/16 at 16:00; Stop 08/29/16 at 16:01; Status DC Warfarin Sodium (Coumadin) 2 mg 1X WARF ONCE PO Last administered on 17:58; Start 08/30/16 at 16:00; Stop 08/30/16 at 16:01; Status DC Artificial Tears (Artificial Tears) 1 drop PRN Q15MIN PRN OU DRY EYE Last administered on 08/30/16 21:21; Start 08/30/16 at 18:00 Info (PHARMACY MONITORING -- do not chart) 1 each PRN DAILY PRN MC SEE COMMENTS ; Start 08/31/16 at 08:15 Info (PHARMACY MONITORING -- do not chart) 1 each PRN DAILY PRN MC SEE COMMENTS ; Start 08/31/16 at 08:15; Status UNV Warfarin Sodium (Coumadin - No Dose Today) 1 each 1X WARF ONCE MC ; Start 08/31 at 16:00; Stop 08/31/16 at 16:01; Status DC Warfarin Sodium (Coumadin) 2 mg 1X WARF ONCE PO Last administered on t 17:47; Start 09/01/16 at 16:00; Stop 09/01/16 at 16:01; Status DC Zolpidem Tartrate (Ambien) 5 mg PRN QHS PRN PO INSOMNIA, MAY REPEAT IN 1HR Last administered on 09/01/16t 21:24; Start 09/01/16 at 21:00 Warfarin Sodium 3 mg 3 mg 1X WARF ONCE PO ; Start 09/02/16 at 16:00; Stop 09/02 at 16:01 Sodium Chloride (Iv Sodium Chloride 0.9% 1000ml Bag) 1,000 ml @ 1,000 mls/hr Q1H PRN IV hypotension; Start 09/02/16 at 10:45; Stop 09/02/16 at 16:44 Info (PHARMACY MONITORING -- do not chart) 1 each PRN DAILY PRN MC SEE COMMENTS ; Start 09/02/16 at 10:45; Status UNV Active Scripts Active Entresto 24 mg-26 mg Tablet (Sacubitril/Valsartan) 1 Each Tablet 1 Tab PO BID Coumadin (Warfarin Sodium) 2.5 Mg Tablet 2.5 Mg PO DAILY16 Reported Reglan (Metoclopramide Hcl) 10 Mg Tablet 5 Mg PO PRN BID PRN Atorvastatin Calcium 40 Mg Tablet 1 Tab PO DAILY Colestid (Colestipol Hcl) 1 Gm Tablet 1 Gm PO TID Pacerone (Amiodarone Hcl) 200 Mg Tablet 200 Mg PO DAILY Lasix (Furosemide) 80 Mg Tablet 1 Tab PO BID Gabapentin 100 Mg Capsule 1 Cap PO TID Aspir 81 (Aspirin) 81 Mg Tablet.dr 1 Tab PO DAILY Coreg (Carvedilol) 6.25 Mg Tablet 1 Tab PO BID K-Tab ER (Potassium Chloride) 20 Meq Tablet.er 20 Meq PO BID Vitals/I & O Vital Sign - Last 24 Hours 09/01/16 09/01/16 09/01/16 09/01/16 15:36 17:48 19:14 19:15 Temp 98.0 98.2 98.0 98.2 Pulse 72 72 Resp 18 20 B/P 99/61 99/61 100/63 Pulse Ox 100 97 O2 Delivery Room Air Room Air Room Air 09/01/16 09/02/16 09/02/16 09/02/16 22:46 02:39 07:16 08:00 Temp 98.1 97.5 98.2 98.1 97.5 98.2 Pulse 68 71 72 Resp 20 18 18 B/P 114/73 100/66 97/67 Pulse Ox 97 98 95 O2 Delivery Room Air Room Air Room Air Room Air O2 Flow Rate 2.0 09/02/16 09/02/16 09/02/16 12:41 12:41 12:49 Temp 98.5 98.5 Pulse 85 78 Resp 18 B/P 111/65 107/70 Pulse Ox 95 O2 Delivery Room Air Intake and Output 09/01/16 09/01/16 09/02/16 15:00 23:00 07:00 Intake Total 500 ml Output Total 0 ml Balance 500 ml 0 ml HEATHER CHERRY MD Sep 02, 2016 13:29
[2016-09-02 15:00] VITALS: BP 88/56
[2016-09-02] MEDS ORDERED: WARFARIN 3 MG TABLET. PO ONE (16:00)
[2016-09-02 19:15] VITALS: BP 95/45
[2016-09-02] MEDS: ATORVASTATIN CALCIUM 40 MG TABLET. PO SCH (20:41)
[2016-09-02] MEDS: ZOLPIDEM 5 MG TABLET. PO PRN ×2 (20:41→22:31)
[2016-09-02] MEDS: NYSTATIN TOPICAL POWDER 15GM BOTTLE. TP SCH (21:38)
[2016-09-02] MEDS: TRAMADOL 50 MG TABLET. PO PRN (21:38)
[2016-09-02 22:45] VITALS: BP 90/55
[2016-09-03] VITALS (7 sets, daily range): BP systolic 94–117; BP diastolic 56–76
[2016-09-03 05:52] LABS: BASO # 0.1 x10^3/uL (0.0-0.2); BASO % 1 % (0-3); EOS % 2 % (0-3); HEMATOCRIT 31.1 % (39.0-53.0); HEMOGLOBIN 9.8 g/dL (13.0-17.5); LYMPH # 0.8 x10^3/uL (1.0-4.8); LYMPH % 13 % (24-48); MEAN CORPUSCULAR HEMOGLOBIN 26 pg (25-35); MEAN CORPUSCULAR HGB CONC 32 g/dL (31-37); MEAN CORPUSCULAR VOLUME 82 fL (79-100); MONO % 10 % (0-9); NEUT % 74 % (31-73); PLATELET COUNT 99 x10^3/uL (140-400); RED BLOOD COUNT 3.78 x10^6/uL (4.30-5.70); RED CELL DISTRIBUTION WIDTH 23.5 % (11.5-14.5); WHITE BLOOD COUNT 6.2 x10^3/uL (4.0-11.0)
[2016-09-03 06:04] LABS: INR 2.4 (0.8-1.1); PROTHROMBIN TIME PATIENT 24.5 SEC (11.7-14.0)
[2016-09-03 06:06] LABS: CALCIUM 7.7 mg/dL (8.5-10.1); CREATININE 2.3 mg/dL (0.7-1.3); GFR 33.9
[2016-09-03] MEDS: INSULIN ASPART 300 UNITS/3 ML INSULN.PEN SQ SCH ×3 (08:00→17:00)
[2016-09-03] MEDS: ASPIRIN ENTERIC COATED 81 MG TABLET.DR. PO SCH (08:55)
[2016-09-03] MEDS: PANTOPRAZOLE 40 MG TABLET.DR. PO SCH (08:55)
[2016-09-03] MEDS: AMIODARONE HCL 200 MG TABLET. PO SCH (08:55)
[2016-09-03] MEDS: NYSTATIN TOPICAL POWDER 15GM BOTTLE. TP SCH ×2 (08:56→21:00)
[2016-09-03] MEDS: CARVEDILOL 6.25 MG TABLET. PO SCH ×2 (08:56→18:07)
--- NOTE | 2016-09-03 09:51 | PDOC ---
PROGRESS NOTES Subjective Subjective gained lot of fluids Objective Objective Vital Signs Date Time Temp Pulse Resp B/P Pulse Ox O2 Delivery O2 Flow Rate FiO2 09/03/16 08:56 73 09/03/16 07:00 98.1 18 106/56 100 Room Air 98.1 09/03/16 03:51 2.0 Intake and Output 09/03/16 07:00 Intake Total 350 ml Output Total 0 ml Balance 350 ml Intake Oral 350 ml Output Urine Total 0 ml Physical Exam Abdomen: Normal bowel sounds, Soft, No tenderness Heart: Regular rate, Normal S1, Normal S2, Other (1-2/6 systolic murmur) Extremities: No clubbing, No cyanosis General: Alert, Oriented X3, Cooperative, No acute distress HEENT: Atraumatic, PERRLA Lungs: Clear to auscultation MUSCULOSKELETAL: No joint tenderness, No deformity, No muscular tenderness noted Neck: Supple Neuro: Normal speech Psych/Mental Status: Mood NL Skin: No rashes, No significant lesion Diagnosis Problem List Problems Medical Problems: (1) Acute on chronic renal failure Status: Acute Assessment Assessment New ESRD on dialysis,started on dialysis last week * urinary retention improved. ac on crf. possible ATN 1. ARF with CKD II ATN SONA on HD 2. a/c systolic CHF ICM EF 10% AICD 3. HTN 4. DM II with CKD II diet control 5. hyperlipidemia 6. mild to mod MR 7. moderate pulmonary HTN 8. severe weakness and debility 9. metabolic encephalopathy POA 10. moderate chronic PCL malnutrition 11.PVD PLAN:dialysis sat. spoke with social work today waiting for dialysis slot to be opened ,close to her daughters place in [place], [place]. plans to move wednesday or wednesday Improving slowly. INR2.8 Adjust Coumadin. dobutamine infusions 3 times a week Problems: Plan Plan of Care Problems Medical Problems: (1) Acute on chronic renal failure Status: Acute Comment Review of Relevant I have reviewed the following items marquise (where applicable) has been applied. Labs Laboratory Tests Test 09/02/16 12:34 09/02/16 17:17 09/02/16 20:23 09/03/16 05:15 Glucose (Fingerstick) 85mg/dL (70-99) 192mg/dL (70-99) 143mg/dL (70-99) White Blood Count 6.2x10^3/uL (4.0-11.0) Red Blood Count 3.78x10^6/uL (4.30-5.70) Hemoglobin 9.8g/dL (13.0-17.5) Hematocrit 31.1% (39.0-53.0) Mean Corpuscular Volume 82fL (79-100) Mean Corpuscular Hemoglobin 26pg (25-35) Mean Corpuscular Hemoglobin Concent 32g/dL (31-37) Red Cell Distribution Width 23.5% (11.5-14.5) Platelet Count 99x10^3/uL (140-400) Neutrophils (%) (Auto) 74% (31-73) Lymphocytes (%) (Auto) 13% (24-48) Monocytes (%) (Auto) 10% (0-9) Eosinophils (%) (Auto) 2% (0-3) Basophils (%) (Auto) 1% (0-3) Neutrophils # (Auto) 4.6x10^3uL (1.8-7.7) Lymphocytes # (Auto) 0.8x10^3/uL (1.0-4.8) Monocytes # (Auto) 0.6x10^3/uL (0.0-1.1) Eosinophils # (Auto) 0.1x10^3/uL (0.0-0.7) Basophils # (Auto) 0.1x10^3/uL (0.0-0.2) Prothrombin Time 24.5SEC (11.7-14.0) Prothromb Time International Ratio 2.4 (0.8-1.1) Sodium Level 136mmol/L (136-145) Potassium Level 4.0mmol/L (3.5-5.1) Chloride Level 99mmol/L (98-107) Carbon Dioxide Level 30mmol/L (21-32) Anion Gap 7 (6-14) Blood Urea Nitrogen 31mg/dL (8-26) Creatinine 2.3mg/dL (0.7-1.3) Estimated GFR (Cockcroft-Gault) 33.9 Glucose Level 134mg/dL (70-99) Calcium Level 7.7mg/dL (8.5-10.1) Test 09/03/16 08:15 Glucose (Fingerstick) 129mg/dL (70-99) Microbiology 4/1/17 Urine Culture - Final, Complete 08/15/16 Urine Culture Result 1 (JV) - Final, Complete 08/15/16 Urine Culture Result 2 (JV) - Final, Complete 08/15/16 Antimicrobic Susceptibility - Final, Complete Medications Current Medications Info (PHARMACY MONITORING -- do not chart) 1 each PRN DAILY PRN MC SEE COMMENTS ; Start 09/02/16 at 10:45; Status UNV Nystatin (Nystop) 1 maria teresa BID TP Last administered on 09/03/16 08:56; Start at 21:00 Sodium Chloride (Iv Sodium Chloride 0.9% 1000ml Bag) 1,000 ml @ 1,000 mls/hr Q1H PRN IV hypotension; Start 09/02/16 at 10:45; Stop 09/02/16 at 16:44; Status DC Warfarin Sodium 3 mg 3 mg 1X WARF ONCE PO Last administered on 09/02/16 17:30 ; Start 09/02/16 at 16:00; Stop 09/02/16 at 16:01; Status DC Vitals/I & O Vital Sign - Last 24 Hours 09/02/16 09/02/16 09/02/16 09/02/16 12:41 12:41 12:49 15:00 Temp 98.5 99.0 98.5 99.0 Pulse 85 78 72 Resp 18 18 B/P 111/65 107/70 88/56 Pulse Ox 95 97 O2 Delivery Room Air Room Air 09/02/16 09/02/16 09/02/16 09/02/16 17:30 19:15 19:20 21:38 Temp 98.4 98.4 Pulse 69 68 Resp 18 20 B/P 95/45 Pulse Ox 96 O2 Delivery Room Air Room Air Room Air 09/02/16 09/02/16 09/03/16 09/03/16 22:38 22:45 03:51 07:00 Temp 97.6 97.9 98.1 97.6 97.9 98.1 Pulse 71 72 70 Resp 20 18 14 18 B/P 90/55 100/63 106/56 Pulse Ox 91 93 100 O2 Delivery Room Air Room Air Nasal Cannula Room Air O2 Flow Rate 2.0 09/03/16 09/03/16 08:55 08:56 Pulse 73 73 Intake and Output 09/02/16 09/02/16 09/03/16 15:00 23:00 07:00 Intake Total 350 ml 0 ml Output Total 0 ml Balance 350 ml 0 ml AFSHAN SLADE MD Sep 03, 2016 09:51
[2016-09-03] MEDS: FUROSEMIDE 40 MG/4 ML VIAL. IVP SCH ×2 (10:30→18:07)
--- NOTE | 2016-09-03 10:59 | PDOC ---
SUBJECTIVE ROS SONA/ ATN ----> ESRD Doing same overall CVS: no Orthopnea, no CP RESP: no SOB, no SEGOVIA GI: no Nausea, no Vomiting : no Dysuria, no Urgency OBJECTIVE Vital Signs Vital Signs Date Time Temp Pulse Resp B/P Pulse Ox O2 Delivery O2 Flow Rate FiO2 09/03/16 08:56 73 09/03/16 07:00 98.1 18 106/56 100 Room Air 98.1 09/03/16 03:51 2.0 I & 0 Intake and Output 09/03/16 07:00 Intake Total 350 ml Output Total 0 ml Balance 350 ml Intake Oral 350 ml Output Urine Total 0 ml PHYSICAL EXAM Physical Exam General Appearance: Awake Alert Oriented x 3 In no Distress Eyes: VIsion Unchanged Conjunctiva Normal EN: No EN Drainage Mucous Memb. moist Neck: no JVD + JVP Supple no Thyromegaly CVS: S1 S2 + Murmur No Gallop No Rub tr Edema Resp: no Rales no Rhonchi no Acc. Muscle use GI: BS +ve NO Bruit Non Tender Non Distended, obese : no CVA tenderness; no Suprapubic Tenderness Assessment & Plan ARF/ ATN ----> ESRD: in setting of ES CMyopathy Current FLuid and E-lyte status does not necessitate emergent need for Dialysis. Will re-evaluate for Dialysis in am; Anemia:(Fe def) IV Iron done, ct Epogen for now; Transfuse as needed. Marginal HypoTN: Current meds reviewed. Suspect Hemodynamics will be tenous due to ES Cmyopahty BiV Dil Cmyoaphty - End stage dilated cardiomyopathy. Dobutamine gtt as OP per Cardiology Discussed Plan of Care and prognosis etc. at length with pt. Prognosis is guarded for near term Plans for [facility] HD in [place] noted. Hence [facility] HD on Wednesday COMMENT/RELEVANT DATA Meds Current Medications Medications (Trade) Dose Ordered Sig/Fernando Start Time Stop Time Status Last Admin Dose Admin Albumin Human (Albuminar) 100 ml @ 100 mls/hr 1X ONCE 08/16/16 09:00 08/16/16 09:59 DC 08/16/16 08:41 100 MLS/HR Alprazolam (Xanax) 0.25 mg PRN Q8HRS PRN 09/03/16 10:00 Amiodarone HCl (Cordarone) 200 mg DAILY 08/15/16 09:00 09/03/16 08:55 200 MG Artificial Tears (Artificial Tears) 1 drop PRN Q15MIN PRN 08/30/16 18:00 08/30/16 21:21 1 DROP Aspirin (Ecotrin) 81 mg DAILY 08/15/16 09:00 09/03/16 08:55 81 MG Atorvastatin Calcium (Lipitor) 40 mg QHS 08/14/16 21:00 09/02/16 20:41 40 MG Bisacodyl (Dulcolax Supp) 10 mg 1X ONCE 08/20/16 14:30 08/20/16 14:31 DC 08/20/16 16:49 10 MG Carvedilol (Coreg) 6.25 mg BIDWMEALS 08/14/16 17:30 09/03/16 08:56 6.25 MG Cefazolin Sodium (Ancef 1gm Ivpb For Omni) 50 ml @ 100 mls/hr 1X ONCE 08/24/16 12:30 08/24/16 12:59 DC 08/24/16 12:29 100 MLS/HR Cefpodoxime Proxetil (Vantin) 100 mg BID 08/19/16 21:00 08/26/16 21:01 DC 08/26/16 20:40 100 MG Ceftriaxone Sodium/Sodium Chloride (Rocephin/Iv Sodium Chloride 0.9% 50ml) 50 ml @ 100 mls/hr Q24H 08/17/16 10:00 08/19/16 12:56 DC 08/19/16 10:00 100 MLS/HR Colestipol HCl (Colestid) 1 gm TID 08/14/16 21:00 08/18/16 10:08 DC 08/17/16 20:55 1 GM Darbepoetin Dino (Aranesp) 60 mcg WEEKLYHS 08/24/16 21:00 08/31/16 21:27 60 MCG Dextrose (Dextrose 50%-Water Syringe) 12.5 gm PRN Q15MIN PRN 08/14/16 16:45 Dobutamine HCl/ Dextrose 250 ml @ 0 mls/hr CONT PRN PRN 08/15/16 14:53 09/02/16 13:15 6.6 MLS/HR Fentanyl Citrate (Fentanyl 2ml Vial) 100 mcg STK-MED ONCE 08/24/16 11:58 08/24/16 11:59 DC Fentanyl Citrate 100 mcg 100 mcg 1X ONCE 08/24/16 12:30 08/24/16 12:31 DC 08/24/16 12:30 75 MCG Furosemide (Lasix) 40 mg [id number] 09/03/16 10:30 Furosemide 40 mg 40 mg 1X ONCE 08/15/16 15:00 08/15/16 15:01 DC 08/15/16 16:22 40 MG Heparin Sodium (Porcine) (Hep Lock Adult) 500 unit STK-MED ONCE 08/18/16 09:29 08/18/16 11:42 DC Heparin Sodium (Porcine) (Heparin Sodium) 4,300 unit 1X ONCE 08/24/16 12:15 08/24/16 12:21 DC 08/24/16 12:15 4,300 UNIT Heparin Sodium/ Sodium Chloride 1,000 unit 1X ONCE 08/24/16 11:45 08/24/16 11:46 DC 08/24/16 12:23 1,000 UNIT Info (PHARMACY MONITORING -- do not chart) 1 each PRN DAILY PRN 09/02/16 10:45 UNV Insulin Aspart (Novolog) 0-5 UNITS TIDWMEALS 08/14/16 17:30 08/30/16 12:00 2 UNITS Iron Sucrose/ Sodium Chloride (Venofer/Iv Sodium Chloride 0.9% 100ml) 110 ml @ 55 mls/hr 3X/WEEK 08/19/16 09:00 08/28/16 10:59 DC 08/28/16 09:10 55 MLS/HR Lidocaine/ Epinephrine (Xylocaine 2%-Epi 1:100,000) 20 ml 1X ONCE 08/24/16 11:45 08/24/16 11:46 DC 08/24/16 12:23 20 ML Lidocaine/ Epinephrine 20 ml 20 ml STK-MED ONCE 08/18/16 09:29 08/18/16 11:42 DC Magnesium Sulfate/ Dextrose (Magnesium Sulfate PREMIX 2GM) 50 ml @ 25 mls/hr PRN DAILY PRN 08/15/16 15:30 Metoclopramide HCl (Reglan) 5 mg PRN BID PRN 08/14/16 16:45 08/16/16 10:25 DC Midazolam HCl (Versed) 2 mg 1X ONCE 08/24/16 12:30 08/24/16 12:31 DC 08/24/16 12:30 1.5 MG Midazolam HCl 2 mg 2 mg STK-MED ONCE 08/18/16 10:30 08/18/16 11:43 DC Mineral Oil (Fleet Mineral Oil) 133 ml PRN DAILY PRN 08/24/16 19:30 Non-Formulary Medication 1 ea Q4H 08/21/16 12:00 08/21/16 16:01 DC 08/21/16 16:18 1 EA Nystatin (Nystop) 1 maria teresa BID 09/02/16 21:00 09/03/16 08:56 1 MARIA TERESA Ondansetron HCl 4 mg 4 mg PRN Q6HRS PRN 08/16/16 20:30 08/27/16 00:53 4 MG Pantoprazole Sodium (Protonix) 40 mg DAILYAC 08/15/16 11:30 09/03/16 08:55 40 MG Sacubitril/ Valsartan (Entresto 24 Mg-26 Mg) 1 tab BID 08/14/16 21:00 08/17/16 10:16 DC 08/17/16 09:14 1 TAB Senna/Docusate Sodium (Senna Plus) 1 tab PRN BID PRN 08/20/16 10:00 08/28/16 16:20 1 TAB Senna/Docusate Sodium 1 tab 1 tab PRN BID PRN 08/19/16 13:30 08/20/16 14:43 DC 08/20/16 14:18 1 TAB Sodium Bicarbonate 50 meq 50 meq Q2HR 08/15/16 16:00 08/15/16 18:30 DC 08/15/16 18:20 50 MEQ Sodium Polystyrene Sulfonate (Kayexalate) 60 gm 1X ONCE 08/14/16 18:30 08/14/16 18:31 DC 08/14/16 18:51 60 GM Sodium Bicarbonate 50 meq Q6H 08/21/16 14:00 08/21/16 20:01 DC 08/21/16 20:16 50 MEQ Sodium Chloride (Iv Sodium Chloride 0.9% 500ml Bag) 500 ml @ 0 mls/hr 1X ONCE 08/19/16 16:00 08/19/16 16:01 DC 08/19/16 16:58 999 MLS/HR Sodium Chloride (Iv Sodium Chloride 0.9% 1000ml Bag) 1,000 ml @ 1,000 mls/hr Q1H PRN 09/02/16 10:45 09/02/16 16:44 DC Sodium Chloride (Normal Saline Flush) 10 ml 1X PRN PRN 08/28/16 10:45 08/29/16 10:44 DC Tramadol HCl (Ultram) 50 mg PRN TID PRN 08/25/16 15:45 09/02/16 21:38 50 MG Vancomycin HCl 250 ml @ As Directed STK-MED ONCE 08/18/16 09:29 08/18/16 11:42 DC Warfarin Sodium (Coumadin - No Dose Today) 1 each 1X WARF ONCE 08/31/16 16:00 08/31/16 16:01 DC Warfarin Sodium (Coumadin Per Pharmacy) 1 each PRN DAILY PRN 08/15/16 10:00 09/02/16 08:05 1 EACH Warfarin Sodium (Coumadin Per Physician) 1 each PRN DAILY PRN 08/14/16 17:15 08/15/16 09:54 DC Warfarin Sodium (Coumadin) 2 mg 1X WARF ONCE 09/01/16 16:00 09/01/16 16:01 DC 09/01/16 17:47 2 MG Warfarin Sodium 3 mg 3 mg 1X WARF ONCE 09/02/16 16:00 09/02/16 16:01 DC 09/02/16 17:30 3 MG Warfarin Sodium 4 mg 4 mg 1X WARF ONCE 08/15/16 16:00 08/15/16 16:01 DC 08/15/16 16:33 4 MG Zolpidem Tartrate (Ambien) 5 mg PRN QHS PRN 09/01/16 21:00 09/02/16 22:31 5 MG Lab Laboratory Tests Test 09/02/16 12:34 09/02/16 17:17 09/02/16 20:23 09/03/16 05:15 Glucose (Fingerstick) 85mg/dL (70-99) 192mg/dL (70-99) 143mg/dL (70-99) White Blood Count 6.2x10^3/uL (4.0-11.0) Red Blood Count 3.78x10^6/uL (4.30-5.70) Hemoglobin 9.8g/dL (13.0-17.5) Hematocrit 31.1% (39.0-53.0) Mean Corpuscular Volume 82fL (79-100) Mean Corpuscular Hemoglobin 26pg (25-35) Mean Corpuscular Hemoglobin Concent 32g/dL (31-37) Red Cell Distribution Width 23.5% (11.5-14.5) Platelet Count 99x10^3/uL (140-400) Neutrophils (%) (Auto) 74% (31-73) Lymphocytes (%) (Auto) 13% (24-48) Monocytes (%) (Auto) 10% (0-9) Eosinophils (%) (Auto) 2% (0-3) Basophils (%) (Auto) 1% (0-3) Neutrophils # (Auto) 4.6x10^3uL (1.8-7.7) Lymphocytes # (Auto) 0.8x10^3/uL (1.0-4.8) Monocytes # (Auto) 0.6x10^3/uL (0.0-1.1) Eosinophils # (Auto) 0.1x10^3/uL (0.0-0.7) Basophils # (Auto) 0.1x10^3/uL (0.0-0.2) Prothrombin Time 24.5SEC (11.7-14.0) Prothromb Time International Ratio 2.4 (0.8-1.1) Sodium Level 136mmol/L (136-145) Potassium Level 4.0mmol/L (3.5-5.1) Chloride Level 99mmol/L (98-107) Carbon Dioxide Level 30mmol/L (21-32) Anion Gap 7 (6-14) Blood Urea Nitrogen 31mg/dL (8-26) Creatinine 2.3mg/dL (0.7-1.3) Estimated GFR (Cockcroft-Gault) 33.9 Glucose Level 134mg/dL (70-99) Calcium Level 7.7mg/dL (8.5-10.1) Test 09/03/16 08:15 Glucose (Fingerstick) 129mg/dL (70-99) ALLI SELBY MD Sep 03, 2016 10:59
[2016-09-03] MEDS ORDERED: WARFARIN 3 MG TABLET. PO ONE (16:00)
--- NOTE | 2016-09-03 17:29 | PDOC ---
PROGRESS NOTES Subjective Subjective She did not feel like walking today. Objective Objective Vital Signs Date Time Temp Pulse Resp B/P Pulse Ox O2 Delivery O2 Flow Rate FiO2 09/03/16 15:43 98.1 71 19 106/61 98 Room Air 98.1 09/03/16 08:00 2.0 Intake and Output 09/03/16 07:00 Intake Total 350 ml Output Total 0 ml Balance 350 ml Intake Oral 350 ml Output Urine Total 0 ml Physical Exam Physical Exam She is sitting at edge of bed and seems comfortable and had ankle boots in place. Assessment Assessment Problems Medical Problems: (1) Acute on chronic renal failure Status: Acute Plan Plan of Care To continue present physical and occupational therapy follow up as she can tolerate. Comment Review of Relevant I have reviewed the following items marquise (where applicable) has been applied. Labs Laboratory Tests Test 09/01/16 17:30 09/01/16 20:57 09/02/16 05:20 09/02/16 07:43 Glucose (Fingerstick) 133mg/dL (70-99) 148mg/dL (70-99) 106mg/dL (70-99) Prothrombin Time 24.3SEC (11.7-14.0) Prothromb Time International Ratio 2.4 (0.8-1.1) Test 09/02/16 12:34 09/02/16 17:17 09/02/16 20:23 09/03/16 05:15 Glucose (Fingerstick) 85mg/dL (70-99) 192mg/dL (70-99) 143mg/dL (70-99) White Blood Count 6.2x10^3/uL (4.0-11.0) Red Blood Count 3.78x10^6/uL (4.30-5.70) Hemoglobin 9.8g/dL (13.0-17.5) Hematocrit 31.1% (39.0-53.0) Mean Corpuscular Volume 82fL (79-100) Mean Corpuscular Hemoglobin 26pg (25-35) Mean Corpuscular Hemoglobin Concent 32g/dL (31-37) Red Cell Distribution Width 23.5% (11.5-14.5) Platelet Count 99x10^3/uL (140-400) Neutrophils (%) (Auto) 74% (31-73) Lymphocytes (%) (Auto) 13% (24-48) Monocytes (%) (Auto) 10% (0-9) Eosinophils (%) (Auto) 2% (0-3) Basophils (%) (Auto) 1% (0-3) Neutrophils # (Auto) 4.6x10^3uL (1.8-7.7) Lymphocytes # (Auto) 0.8x10^3/uL (1.0-4.8) Monocytes # (Auto) 0.6x10^3/uL (0.0-1.1) Eosinophils # (Auto) 0.1x10^3/uL (0.0-0.7) Basophils # (Auto) 0.1x10^3/uL (0.0-0.2) Prothrombin Time 24.5SEC (11.7-14.0) Prothromb Time International Ratio 2.4 (0.8-1.1) Sodium Level 136mmol/L (136-145) Potassium Level 4.0mmol/L (3.5-5.1) Chloride Level 99mmol/L (98-107) Carbon Dioxide Level 30mmol/L (21-32) Anion Gap 7 (6-14) Blood Urea Nitrogen 31mg/dL (8-26) Creatinine 2.3mg/dL (0.7-1.3) Estimated GFR (Cockcroft-Gault) 33.9 Glucose Level 134mg/dL (70-99) Calcium Level 7.7mg/dL (8.5-10.1) Test 09/03/16 08:15 09/03/16 11:56 09/03/16 16:43 Glucose (Fingerstick) 129mg/dL (70-99) 128mg/dL (70-99) 138mg/dL (70-99) Laboratory Tests Test 09/02/16 20:23 09/03/16 05:15 09/03/16 08:15 09/03/16 11:56 Glucose (Fingerstick) 143mg/dL (70-99) 129mg/dL (70-99) 128mg/dL (70-99) White Blood Count 6.2x10^3/uL (4.0-11.0) Red Blood Count 3.78x10^6/uL (4.30-5.70) Hemoglobin 9.8g/dL (13.0-17.5) Hematocrit 31.1% (39.0-53.0) Mean Corpuscular Volume 82fL (79-100) Mean Corpuscular Hemoglobin 26pg (25-35) Mean Corpuscular Hemoglobin Concent 32g/dL (31-37) Red Cell Distribution Width 23.5% (11.5-14.5) Platelet Count 99x10^3/uL (140-400) Neutrophils (%) (Auto) 74% (31-73) Lymphocytes (%) (Auto) 13% (24-48) Monocytes (%) (Auto) 10% (0-9) Eosinophils (%) (Auto) 2% (0-3) Basophils (%) (Auto) 1% (0-3) Neutrophils # (Auto) 4.6x10^3uL (1.8-7.7) Lymphocytes # (Auto) 0.8x10^3/uL (1.0-4.8) Monocytes # (Auto) 0.6x10^3/uL (0.0-1.1) Eosinophils # (Auto) 0.1x10^3/uL (0.0-0.7) Basophils # (Auto) 0.1x10^3/uL (0.0-0.2) Prothrombin Time 24.5SEC (11.7-14.0) Prothromb Time International Ratio 2.4 (0.8-1.1) Sodium Level 136mmol/L (136-145) Potassium Level 4.0mmol/L (3.5-5.1) Chloride Level 99mmol/L (98-107) Carbon Dioxide Level 30mmol/L (21-32) Anion Gap 7 (6-14) Blood Urea Nitrogen 31mg/dL (8-26) Creatinine 2.3mg/dL (0.7-1.3) Estimated GFR (Cockcroft-Gault) 33.9 Glucose Level 134mg/dL (70-99) Calcium Level 7.7mg/dL (8.5-10.1) Test 09/03/16 16:43 Glucose (Fingerstick) 138mg/dL (70-99) Microbiology 08/15/16 Urine Culture - Final, Complete 08/15/16 Urine Culture Result 1 (JV) - Final, Complete 08/15/16 Urine Culture Result 2 (JV) - Final, Complete 08/15/16 Antimicrobic Susceptibility - Final, Complete Medications Current Medications Insulin Aspart (Novolog) 0-5 UNITS TIDWMEALS SQ Last administered on 08/30/16 12:00; Start 08/14/16 at 17:30 Dextrose 12.5 gm 12.5 gm PRN Q15MIN PRN IV SEE COMMENTS; Start 08/14/16 at 16: 45 Sodium Chloride (Iv Sodium Chloride 0.9% 1000ml Bag) 1,000 ml @ 100 mls/hr Q10H IV Last administered on 08/14/16 18:53; Start 08/14/16 at 17:30; Stop 08/15/16 at 03:29; Status DC Amiodarone HCl (Cordarone) 200 mg DAILY PO Last administered on 09/03/16 08:55 ; Start 08/15/16 at 09:00 Aspirin (Ecotrin) 81 mg DAILY PO Last administered on 09/03/16 08:55; Start at 09:00 Atorvastatin Calcium (Lipitor) 40 mg QHS PO Last administered on 09/02/16 20: 41; Start 08/14/16 at 21:00 Carvedilol (Coreg) 6.25 mg BIDWMEALS PO Last administered on 09/03/16 08:56; Start 08/14/16 at 17:30 Colestipol HCl (Colestid) 1 gm TID PO Last administered on 08/17/16 20:55; Start 08/14/16 at 21:00; Stop 08/18/16 at 10:08; Status DC Metoclopramide HCl (Reglan) 5 mg PRN BID PRN PO NAUSEA; Start 08/14/16 at 16:45 ; Stop 08/16/16 at 10:25; Status DC Sacubitril/ Valsartan (Entresto 24 Mg-26 Mg) 1 tab BID PO Last administered on 08/17/16 09:14; Start 08/14/16 at 21:00; Stop 08/17/16 at 10:16; Status DC Warfarin Sodium (Coumadin) 2.5 mg DAILY16 PO Last administered on 08/14/16 18: 50; Start 08/14/16 at 18:00; Stop 08/15/16 at 14:13; Status DC Warfarin Sodium (Coumadin Per Physician) 1 each PRN DAILY PRN MC SEE COMMENTS; Start 08/14/16 at 17:15; Stop 08/15/16 at 09:54; Status DC Sodium Polystyrene Sulfonate (Kayexalate) 60 gm 1X ONCE PO Last administered on 08/14/16 18:51; Start 08/14/16 at 18:30; Stop 08/14/16 at 18:31; Status DC Warfarin Sodium (Coumadin Per Pharmacy) 1 each PRN DAILY PRN MC SEE COMMENTS Last administered on 09/03/16 14:01; Start 08/15/16 at 10:00 Pantoprazole Sodium 40 mg 40 mg DAILYAC PO Last administered on 09/03/16 08:55 ; Start 08/15/16 at 11:30 Dobutamine HCl/ Dextrose 250 ml @ 0 mls/hr CONT PRN IV ; Start 08/15/16 at 14:00 ; Stop 08/15/16 at 14:53; Status DC Albumin Human (Albuminar) 100 ml @ 100 mls/hr 1X ONCE IV Last administered on 08/15/16 15:25; Start 08/15/16 at 14:00; Stop 08/15/16 at 14:59; Status DC Furosemide 40 mg 40 mg 1X ONCE IVP Last administered on 08/15/16 16:22; Start 08/15/16 at 15:00; Stop 08/15/16 at 15:01; Status DC Albumin Human (Albuminar) 100 ml @ 100 mls/hr 1X ONCE IV Last administered on 08/16/16 08:41; Start 08/16/16 at 09:00; Stop 08/16/16 at 09:59; Status DC Furosemide (Lasix) 40 mg 1X ONCE IVP Last administered on 08/16/16 09:45; Start 08/16/16 at 10:00; Stop 08/16/16 at 10:01; Status DC Warfarin Sodium 4 mg 4 mg 1X WARF ONCE PO Last administered on 08/15/16 16:33 ; Start 08/15/16 at 16:00; Stop 08/15/16 at 16:01; Status DC Dobutamine HCl/ Dextrose 250 ml @ 0 mls/hr CONT PRN PRN IV SEE I/O RECORD Last administered on 09/02/16 13:15; Start 08/15/16 at 14:53 Sodium Bicarbonate 50 meq 50 meq Q2HR IV Last administered on 08/15/16 18:20; Start 08/15/16 at 16:00; Stop 08/15/16 at 18:30; Status DC Magnesium Sulfate/ Dextrose (Magnesium Sulfate PREMIX 2GM) 50 ml @ 25 mls/hr PRN DAILY PRN IV for Mag < 1.7 on am labs; Start 08/15/16 at 15:30 Warfarin Sodium (Coumadin) 4 mg 1X WARF ONCE PO Last administered on 08/16/16 17:28; Start 08/16/16 at 16:00; Stop 08/16/16 at 16:01; Status DC Ondansetron HCl 4 mg 4 mg PRN Q6HRS PRN IV nausea Last administered on 00:53; Start 08/16/16 at 20:30 Ceftriaxone Sodium 1 gm/ Sodium Chloride 50 ml @ 100 mls/hr Q24H IV Last administered on 08/19/16 10:00; Start 08/17/16 at 10:00; Stop 08/19/16 at 12:56; Status DC Sodium Chloride (Iv Sodium Chloride 0.9% 1000ml Bag) 1,000 ml @ 75 mls/hr [id number] IV Last administered on 08/19/16 16:58; Start 08/17/16 at 10:15; Stop at 09:27; Status DC Warfarin Sodium (Coumadin) 5 mg 1X WARF ONCE PO ; Start 08/17/16 at 16:00; Stop 08/17/16 at 16:01; Status DC Heparin Sodium/ Sodium Chloride 1,000 unit 1X ONCE IART Last administered on 11:45; Start 08/18/16 at 11:30; Stop 08/18/16 at 11:31; Status DC Midazolam HCl (Versed) 2 mg 1X ONCE IV Last administered on 08/18/16 11:46; Start 08/18/16 at 11:30; Stop 08/18/16 at 11:31; Status DC Fentanyl Citrate (Fentanyl 2ml Vial) 100 mcg 1X ONCE IV Last administered on 11:47; Start 08/18/16 at 11:30; Stop 08/18/16 at 11:31; Status DC Lidocaine/ Epinephrine 15 ml 15 ml 1X ONCE IJ Last administered on 08/18/16 11 :44; Start 08/18/16 at 11:30; Stop 08/18/16 at 11:31; Status DC Vancomycin HCl 250 ml @ 250 mls/hr 1X ONCE IRR Last administered on 08/18/16 11:45; Start 08/18/16 at 11:30; Stop 08/18/16 at 12:29; Status DC Heparin Sodium (Porcine) (Hep Lock Adult) 500 unit 1X ONCE IV Last administered on 08/18/16 11:46; Start 08/18/16 at 11:30; Stop 08/18/16 at 11:31; Status DC Heparin Sodium (Porcine) (Hep Lock Adult) 500 unit STK-MED ONCE IV ; Start at 09:29; Stop 08/18/16 at 11:42; Status DC Lidocaine/ Epinephrine 20 ml 20 ml STK-MED ONCE .ROUTE ; Start 08/18/16 at 09:29 ; Stop 08/18/16 at 11:42; Status DC Heparin Sodium/ Sodium Chloride 500 ml @ As Directed STK-MED ONCE .ROUTE ; Start 08/18/16 at 09:29; Stop 08/18/16 at 11:42; Status DC Vancomycin HCl 250 ml @ As Directed STK-MED ONCE .ROUTE ; Start 08/18/16 at 09: 29; Stop 08/18/16 at 11:42; Status DC Fentanyl Citrate (Fentanyl 2ml Vial) 100 mcg STK-MED ONCE .ROUTE ; Start at 10:29; Stop 08/18/16 at 11:43; Status DC Midazolam HCl 2 mg 2 mg STK-MED ONCE .ROUTE ; Start 08/18/16 at 10:30; Stop at 11:43; Status DC Iron Sucrose/ Sodium Chloride (Venofer/Iv Sodium Chloride 0.9% 100ml) 110 ml @ 55 mls/hr 3X/WEEK IV Last administered on 08/28/16 09:10; Start 08/19/16 at 09: 00; Stop 08/28/16 at 10:59; Status DC Warfarin Sodium (Coumadin) 5 mg 1X WARF ONCE PO Last administered on 08/18/16 17:56; Start 08/18/16 at 16:00; Stop 08/18/16 at 16:01; Status DC Warfarin Sodium (Coumadin) 3 mg 1X WARF ONCE PO ; Start 08/19/16 at 16:00; Stop 08/19/16 at 16:01; Status Cancel Cefpodoxime Proxetil (Vantin) 100 mg BID PO Last administered on 08/26/16 20: 40; Start 08/19/16 at 21:00; Stop 08/26/16 at 21:01; Status DC Warfarin Sodium (Coumadin) 2.5 mg 1X WARF ONCE PO Last administered on 16:59; Start 08/19/16 at 16:00; Stop 08/19/16 at 16:01; Status DC Senna/Docusate Sodium 1 tab 1 tab PRN BID PRN PO CONSTIPATION Last administered on 08/20/16 14:18; Start 08/19/16 at 13:30; Stop 08/20/16 at 14:43; Status DC Sodium Chloride 250 ml @ 0 mls/hr 1X ONCE IV Last administered on 08/19/16 14: 33; Start 08/19/16 at 13:45; Stop 08/19/16 at 13:53; Status DC Sodium Chloride (Iv Sodium Chloride 0.9% 500ml Bag) 500 ml @ 0 mls/hr 1X ONCE IV Last administered on 08/19/16 16:58; Start 08/19/16 at 16:00; Stop 08/19/16 at 16:01; Status DC Senna/Docusate Sodium (Senna Plus) 1 tab PRN BID PRN PO CONSTIPATION Last administered on 08/28/16 16:20; Start 08/20/16 at 10:00 Bisacodyl (Dulcolax Supp) 10 mg 1X ONCE CO ; Start 08/20/16 at 11:00; Stop at 11:00; Status DC Bisacodyl (Dulcolax Supp) 10 mg 1X ONCE CO Last administered on 08/20/16 16:49 ; Start 08/20/16 at 14:30; Stop 08/20/16 at 14:31; Status DC Warfarin Sodium (Coumadin) 2 mg 1X WARF ONCE PO Last administered on 08/20/16 16:48; Start 08/20/16 at 16:00; Stop 08/20/16 at 16:01; Status DC Mineral Oil (Fleet Mineral Oil) 133 ml 1X ONCE CO ; Start 08/21/16 at 20:00; Stop 08/21/16 at 20:00; Status DC Non-Formulary Medication 1 ea Q4H PO Last administered on 08/21/16 16:18; Start 08/21/16 at 12:00; Stop 08/21/16 at 16:01; Status DC Sodium Bicarbonate 50 meq Q6H IV Last administered on 08/21/16 20:16; Start 08/21/16 at 14:00; Stop 08/21/16 at 20:01; Status DC Warfarin Sodium (Coumadin) 3 mg 1X WARF ONCE PO Last administered on 08/21/16 16:16; Start 08/21/16 at 16:00; Stop 08/21/16 at 16:01; Status DC Warfarin Sodium (Coumadin) 2.5 mg 1X WARF ONCE PO Last administered on 16:00; Start 08/22/16 at 16:00; Stop 08/22/16 at 16:01; Status DC Warfarin Sodium (Coumadin) 3 mg 1X WARF ONCE PO Last administered on 08/23/16 18:28; Start 08/23/16 at 16:00; Stop 08/23/16 at 16:01; Status DC Lidocaine/ Epinephrine (Xylocaine 2%-Epi 1:100,000) 20 ml STK-MED ONCE .ROUTE ; Start 08/24/16 at 10:54; Stop 08/24/16 at 10:55; Status DC Heparin Sodium (Porcine) 83328 unit 10,000 unit STK-MED ONCE .ROUTE ; Start 03/02 at 10:54; Stop 08/24/16 at 10:55; Status DC Heparin Sodium/ Sodium Chloride 500 ml @ As Directed STK-MED ONCE .ROUTE ; Start 08/24/16 at 10:54; Stop 08/24/16 at 10:55; Status DC Darbepoetin Dino (Aranesp) 60 mcg [id number] SQ Last administered on 08/31/16 21 :27; Start 08/24/16 at 21:00 Fentanyl Citrate (Fentanyl 2ml Vial) 100 mcg STK-MED ONCE .ROUTE ; Start at 11:26; Stop 08/24/16 at 11:27; Status DC Midazolam HCl 2 mg 2 mg STK-MED ONCE .ROUTE ; Start 08/24/16 at 11:26; Stop 03/02 at 11:27; Status DC Cefazolin Sodium (Ancef 1gm Ivpb For Omni) 0 ml @ As Directed STK-MED ONCE IV ; Start 08/24/16 at 11:26; Stop 08/24/16 at 11:27; Status DC Heparin Sodium/ Sodium Chloride 1,000 unit 1X ONCE IART Last administered on 12:23; Start 08/24/16 at 11:45; Stop 08/24/16 at 11:46; Status DC Lidocaine/ Epinephrine (Xylocaine 2%-Epi 1:100,000) 20 ml 1X ONCE IJ Last administered on 08/24/16 12:23; Start 08/24/16 at 11:45; Stop 08/24/16 at 11:46 ; Status DC Fentanyl Citrate (Fentanyl 2ml Vial) 100 mcg STK-MED ONCE .ROUTE ; Start at 11:58; Stop 08/24/16 at 11:59; Status DC Midazolam HCl (Versed) 2 mg STK-MED ONCE .ROUTE ; Start 08/24/16 at 11:58; Stop 08/24/16 at 11:59; Status DC Heparin Sodium (Porcine) (Heparin Sodium) 4,300 unit 1X ONCE IV Last administered on 08/24/16 12:15; Start 08/24/16 at 12:15; Stop 08/24/16 at 12:21 ; Status DC Midazolam HCl (Versed) 2 mg 1X ONCE IV Last administered on 08/24/16 12:30; Start 08/24/16 at 12:30; Stop 08/24/16 at 12:31; Status DC Fentanyl Citrate 100 mcg 100 mcg 1X ONCE IV Last administered on 08/24/16 12: 30; Start 08/24/16 at 12:30; Stop 08/24/16 at 12:31; Status DC Cefazolin Sodium (Ancef 1gm Ivpb For Omni) 50 ml @ 100 mls/hr 1X ONCE IV Last administered on 08/24/16 12:29; Start 08/24/16 at 12:30; Stop 08/24/16 at 12:59; Status DC Warfarin Sodium (Coumadin) 4 mg 1X WARF ONCE PO Last administered on 18:08; Start 08/24/16 at 16:00; Stop 08/24/16 at 16:01; Status DC Mineral Oil (Fleet Mineral Oil) 133 ml PRN DAILY PRN CO CONSTIPATION; Start 03/02 at 19:30 Info (PHARMACY MONITORING -- do not chart) 1 each PRN DAILY PRN MC SEE COMMENTS ; Start 08/25/16 at 12:45; Stop 08/27/16 at 13:18; Status DC Info (PHARMACY MONITORING -- do not chart) 1 each PRN DAILY PRN MC SEE COMMENTS ; Start 08/25/16 at 12:45; Stop 08/27/16 at 13:18; Status DC Warfarin Sodium (Coumadin) 4 mg 1X WARF ONCE PO Last administered on 16:11; Start 08/25/16 at 16:00; Stop 08/25/16 at 16:01; Status DC Tramadol HCl (Ultram) 50 mg PRN TID PRN PO PAIN Last administered on 09/02/16 21:38; Start 08/25/16 at 15:45 Info (PHARMACY MONITORING -- do not chart) 1 each PRN DAILY PRN MC SEE COMMENTS ; Start 08/26/16 at 06:45; Stop 08/27/16 at 13:18; Status DC Warfarin Sodium (Coumadin) 4 mg 1X WARF ONCE PO Last administered on 17:13; Start 08/26/16 at 16:00; Stop 08/26/16 at 16:01; Status DC Info (PHARMACY MONITORING -- do not chart) 1 each PRN DAILY PRN MC SEE COMMENTS ; Start 08/27/16 at 08:00; Status UNV Info (PHARMACY MONITORING -- do not chart) 1 each PRN DAILY PRN MC SEE COMMENTS ; Start 08/27/16 at 08:00; Status Cancel Warfarin Sodium (Coumadin) 4 mg 1X WARF ONCE PO Last administered on 18:32; Start 08/27/16 at 16:00; Stop 08/27/16 at 16:01; Status DC Warfarin Sodium 3 mg 3 mg 1X WARF ONCE PO Last administered on 08/28/16 17:15 ; Start 08/28/16 at 16:00; Stop 08/28/16 at 16:01; Status DC Sodium Chloride (Iv Sodium Chloride 0.9% 1000ml Bag) 1,000 ml @ 1,000 mls/hr Q1H PRN IV hypotension; Start 08/28/16 at 10:42; Stop 08/28/16 at 16:41; Status DC Sodium Chloride (Normal Saline Flush) 10 ml 1X PRN PRN IV AP catheter pack; Start 08/28/16 at 10:45; Stop 08/29/16 at 10:44; Status DC Sodium Chloride (Normal Saline Flush) 10 ml 1X PRN PRN IV PRESSURE SUPERVISOR catheter pack; Start 08/28/16 at 10:45; Stop 08/29/16 at 10:44; Status DC Info (PHARMACY MONITORING -- do not chart) 1 each PRN DAILY PRN MC SEE COMMENTS ; Start 08/28/16 at 10:45; Status UNV Info (PHARMACY MONITORING -- do not chart) 1 each PRN DAILY PRN MC SEE COMMENTS ; Start 08/28/16 at 10:45; Status UNV Warfarin Sodium (Coumadin) 2.5 mg 1X WARF ONCE PO Last administered on 17:00; Start 08/29/16 at 16:00; Stop 08/29/16 at 16:01; Status DC Warfarin Sodium (Coumadin) 2 mg 1X WARF ONCE PO Last administered on 17:58; Start 08/30/16 at 16:00; Stop 08/30/16 at 16:01; Status DC Artificial Tears (Artificial Tears) 1 drop PRN Q15MIN PRN OU DRY EYE Last administered on 08/30/16 21:21; Start 08/30/16 at 18:00 Info (PHARMACY MONITORING -- do not chart) 1 each PRN DAILY PRN MC SEE COMMENTS ; Start 08/31/16 at 08:15 Info (PHARMACY MONITORING -- do not chart) 1 each PRN DAILY PRN MC SEE COMMENTS ; Start 08/31/16 at 08:15; Status UNV Warfarin Sodium (Coumadin - No Dose Today) 1 each 1X WARF ONCE MC ; Start 08/31 at 16:00; Stop 08/31/16 at 16:01; Status DC Warfarin Sodium (Coumadin) 2 mg 1X WARF ONCE PO Last administered on 17:47; Start 09/01/16 at 16:00; Stop 09/01/16 at 16:01; Status DC Zolpidem Tartrate (Ambien) 5 mg PRN QHS PRN PO INSOMNIA, MAY REPEAT IN 1HR Last administered on 09/02/16 22:31; Start 09/01/16 at 21:00 Warfarin Sodium 3 mg 3 mg 1X WARF ONCE PO Last administered on 09/02/16 17:30 ; Start 09/02/16 at 16:00; Stop 09/02/16 at 16:01; Status DC Sodium Chloride (Iv Sodium Chloride 0.9% 1000ml Bag) 1,000 ml @ 1,000 mls/hr Q1H PRN IV hypotension; Start 09/02/16 at 10:45; Stop 09/02/16 at 16:44; Status DC Info (PHARMACY MONITORING -- do not chart) 1 each PRN DAILY PRN MC SEE COMMENTS ; Start 09/02/16 at 10:45; Status UNV Nystatin (Nystop) 1 maria teresa BID TP Last administered on 09/03/16 08:56; Start at 21:00 Furosemide (Lasix) 40 mg [id number] IVP ; Start 09/03/16 at 10:30 Alprazolam (Xanax) 0.25 mg PRN Q8HRS PRN PO ANXIETY / AGITATION; Start at 10:00 Warfarin Sodium (Coumadin) 3 mg 1X WARF ONCE PO ; Start 09/03/16 at 16:00; Stop 09/03/16 at 16:01; Status DC Active Scripts Active Entresto 24 mg-26 mg Tablet (Sacubitril/Valsartan) 1 Each Tablet 1 Tab PO BID Coumadin (Warfarin Sodium) 2.5 Mg Tablet 2.5 Mg PO DAILY16 Reported Reglan (Metoclopramide Hcl) 10 Mg Tablet 5 Mg PO PRN BID PRN Atorvastatin Calcium 40 Mg Tablet 1 Tab PO DAILY Colestid (Colestipol Hcl) 1 Gm Tablet 1 Gm PO TID Pacerone (Amiodarone Hcl) 200 Mg Tablet 200 Mg PO DAILY Lasix (Furosemide) 80 Mg Tablet 1 Tab PO BID Gabapentin 100 Mg Capsule 1 Cap PO TID Aspir 81 (Aspirin) 81 Mg Tablet.dr 1 Tab PO DAILY Coreg (Carvedilol) 6.25 Mg Tablet 1 Tab PO BID K-Tab ER (Potassium Chloride) 20 Meq Tablet.er 20 Meq PO BID Vitals/I & O Vital Sign - Last 24 Hours 09/02/16 09/02/16 09/02/16 09/02/16 17:30 19:15 19:20 21:38 Temp 98.4 98.4 Pulse 69 68 Resp 18 20 B/P 95/45 Pulse Ox 96 O2 Delivery Room Air Room Air Room Air 09/02/16 09/02/16 09/03/16 09/03/16 22:38 22:45 03:51 07:00 Temp 97.6 97.9 98.1 97.6 97.9 98.1 Pulse 71 72 70 Resp 18 B/P 90/55 100/63 106/56 Pulse Ox 91 93 100 O2 Delivery Room Air Room Air Nasal Cannula Room Air O2 Flow Rate 2.0 09/03/16 09/03/16 09/03/16 09/03/16 08:00 08:55 08:56 11:18 Temp 98.0 98.0 Pulse 73 73 77 Resp 22 B/P 95/71 Pulse Ox 100 O2 Delivery Room Air Room Air O2 Flow Rate 2.0 09/03/16 15:43 Temp 98.1 98.1 Pulse 71 Resp 19 B/P 106/61 Pulse Ox 98 O2 Delivery Room Air Intake and Output 09/02/16 09/02/16 09/03/16 15:00 23:00 07:00 Intake Total 350 ml 0 ml Output Total 0 ml Balance 350 ml 0 ml MADDIE AMBROSE MD Sep 03, 2016 17:29
[2016-09-03] MEDS: SENNOSIDES/DOCUSATE 8.6/50MG TABLET. PO PRN (18:07)
--- NOTE | 2016-09-03 19:45 | PDOC ---
PROGRESS NOTES Subjective Subjective No new complaints Objective Objective Vital Signs Date Time Temp Pulse Resp B/P Pulse Ox O2 Delivery O2 Flow Rate FiO2 09/03/16 19:31 98.1 72 16 94/61 95 Room Air 98.1 09/03/16 08:00 2.0 Intake and Output 09/03/16 07:00 Intake Total 350 ml Output Total 0 ml Balance 350 ml Intake Oral 350 ml Output Urine Total 0 ml Physical Exam Physical Exam No significant changes in cardiac exam Assessment Assessment I agree with present plan to discharge this patient on Wednesday to go to [place] for further care. Continue with the dobutamine drip at the present rate until discharge. Problems Medical Problems: (1) Acute on chronic renal failure Status: Acute Comment Review of Relevant I have reviewed the following items marquise (where applicable) has been applied. Labs Laboratory Tests Test 09/01/16 20:57 09/02/16 05:20 09/02/16 07:43 09/02/16 12:34 Glucose (Fingerstick) 148mg/dL (70-99) 106mg/dL (70-99) 85mg/dL (70-99) Prothrombin Time 24.3SEC (11.7-14.0) Prothromb Time International Ratio 2.4 (0.8-1.1) Test 09/02/16 17:17 09/02/16 20:23 09/03/16 05:15 09/03/16 08:15 Glucose (Fingerstick) 192mg/dL (70-99) 143mg/dL (70-99) 129mg/dL (70-99) White Blood Count 6.2x10^3/uL (4.0-11.0) Red Blood Count 3.78x10^6/uL (4.30-5.70) Hemoglobin 9.8g/dL (13.0-17.5) Hematocrit 31.1% (39.0-53.0) Mean Corpuscular Volume 82fL (79-100) Mean Corpuscular Hemoglobin 26pg (25-35) Mean Corpuscular Hemoglobin Concent 32g/dL (31-37) Red Cell Distribution Width 23.5% (11.5-14.5) Platelet Count 99x10^3/uL (140-400) Neutrophils (%) (Auto) 74% (31-73) Lymphocytes (%) (Auto) 13% (24-48) Monocytes (%) (Auto) 10% (0-9) Eosinophils (%) (Auto) 2% (0-3) Basophils (%) (Auto) 1% (0-3) Neutrophils # (Auto) 4.6x10^3uL (1.8-7.7) Lymphocytes # (Auto) 0.8x10^3/uL (1.0-4.8) Monocytes # (Auto) 0.6x10^3/uL (0.0-1.1) Eosinophils # (Auto) 0.1x10^3/uL (0.0-0.7) Basophils # (Auto) 0.1x10^3/uL (0.0-0.2) Prothrombin Time 24.5SEC (11.7-14.0) Prothromb Time International Ratio 2.4 (0.8-1.1) Sodium Level 136mmol/L (136-145) Potassium Level 4.0mmol/L (3.5-5.1) Chloride Level 99mmol/L (98-107) Carbon Dioxide Level 30mmol/L (21-32) Anion Gap 7 (6-14) Blood Urea Nitrogen 31mg/dL (8-26) Creatinine 2.3mg/dL (0.7-1.3) Estimated GFR (Cockcroft-Gault) 33.9 Glucose Level 134mg/dL (70-99) Calcium Level 7.7mg/dL (8.5-10.1) Test 09/03/16 11:56 09/03/16 16:43 Glucose (Fingerstick) 128mg/dL (70-99) 138mg/dL (70-99) Laboratory Tests Test 09/02/16 20:23 09/03/16 05:15 09/03/16 08:15 09/03/16 11:56 Glucose (Fingerstick) 143mg/dL (70-99) 129mg/dL (70-99) 128mg/dL (70-99) White Blood Count 6.2x10^3/uL (4.0-11.0) Red Blood Count 3.78x10^6/uL (4.30-5.70) Hemoglobin 9.8g/dL (13.0-17.5) Hematocrit 31.1% (39.0-53.0) Mean Corpuscular Volume 82fL (79-100) Mean Corpuscular Hemoglobin 26pg (25-35) Mean Corpuscular Hemoglobin Concent 32g/dL (31-37) Red Cell Distribution Width 23.5% (11.5-14.5) Platelet Count 99x10^3/uL (140-400) Neutrophils (%) (Auto) 74% (31-73) Lymphocytes (%) (Auto) 13% (24-48) Monocytes (%) (Auto) 10% (0-9) Eosinophils (%) (Auto) 2% (0-3) Basophils (%) (Auto) 1% (0-3) Neutrophils # (Auto) 4.6x10^3uL (1.8-7.7) Lymphocytes # (Auto) 0.8x10^3/uL (1.0-4.8) Monocytes # (Auto) 0.6x10^3/uL (0.0-1.1) Eosinophils # (Auto) 0.1x10^3/uL (0.0-0.7) Basophils # (Auto) 0.1x10^3/uL (0.0-0.2) Prothrombin Time 24.5SEC (11.7-14.0) Prothromb Time International Ratio 2.4 (0.8-1.1) Sodium Level 136mmol/L (136-145) Potassium Level 4.0mmol/L (3.5-5.1) Chloride Level 99mmol/L (98-107) Carbon Dioxide Level 30mmol/L (21-32) Anion Gap 7 (6-14) Blood Urea Nitrogen 31mg/dL (8-26) Creatinine 2.3mg/dL (0.7-1.3) Estimated GFR (Cockcroft-Gault) 33.9 Glucose Level 134mg/dL (70-99) Calcium Level 7.7mg/dL (8.5-10.1) Test 09/03/16 16:43 Glucose (Fingerstick) 138mg/dL (70-99) Microbiology 08/15/16 Urine Culture - Final, Complete 08/15/16 Urine Culture Result 1 (JV) - Final, Complete 08/15/16 Urine Culture Result 2 (JV) - Final, Complete 08/15/16 Antimicrobic Susceptibility - Final, Complete Medications Current Medications Insulin Aspart (Novolog) 0-5 UNITS TIDWMEALS SQ Last administered on 08/30/16 12:00; Start 08/14/16 at 17:30 Dextrose 12.5 gm 12.5 gm PRN Q15MIN PRN IV SEE COMMENTS; Start 08/14/16 at 16: 45 Sodium Chloride (Iv Sodium Chloride 0.9% 1000ml Bag) 1,000 ml @ 100 mls/hr Q10H IV Last administered on 08/14/16 18:53; Start 08/14/16 at 17:30; Stop 08/15/16 at 03:29; Status DC Amiodarone HCl (Cordarone) 200 mg DAILY PO Last administered on 09/03/16 08:55 ; Start 08/15/16 at 09:00 Aspirin (Ecotrin) 81 mg DAILY PO Last administered on 09/03/16 08:55; Start at 09:00 Atorvastatin Calcium (Lipitor) 40 mg QHS PO Last administered on 09/02/16 20: 41; Start 08/14/16 at 21:00 Carvedilol (Coreg) 6.25 mg BIDWMEALS PO Last administered on 09/03/16 18:07; Start 08/14/16 at 17:30 Colestipol HCl (Colestid) 1 gm TID PO Last administered on 08/17/16 20:55; Start 08/14/16 at 21:00; Stop 08/18/16 at 10:08; Status DC Metoclopramide HCl (Reglan) 5 mg PRN BID PRN PO NAUSEA; Start 08/14/16 at 16:45 ; Stop 08/16/16 at 10:25; Status DC Sacubitril/ Valsartan (Entresto 24 Mg-26 Mg) 1 tab BID PO Last administered on 08/17/16 09:14; Start 08/14/16 at 21:00; Stop 08/17/16 at 10:16; Status DC Warfarin Sodium (Coumadin) 2.5 mg DAILY16 PO Last administered on 08/14/16 18: 50; Start 08/14/16 at 18:00; Stop 08/15/16 at 14:13; Status DC Warfarin Sodium (Coumadin Per Physician) 1 each PRN DAILY PRN MC SEE COMMENTS; Start 08/14/16 at 17:15; Stop 08/15/16 at 09:54; Status DC Sodium Polystyrene Sulfonate (Kayexalate) 60 gm 1X ONCE PO Last administered on 08/14/16 18:51; Start 08/14/16 at 18:30; Stop 08/14/16 at 18:31; Status DC Warfarin Sodium (Coumadin Per Pharmacy) 1 each PRN DAILY PRN MC SEE COMMENTS Last administered on 09/03/16 14:01; Start 08/15/16 at 10:00 Pantoprazole Sodium 40 mg 40 mg DAILYAC PO Last administered on 09/03/16 08:55 ; Start 08/15/16 at 11:30 Dobutamine HCl/ Dextrose 250 ml @ 0 mls/hr CONT PRN IV ; Start 08/15/16 at 14:00 ; Stop 08/15/16 at 14:53; Status DC Albumin Human (Albuminar) 100 ml @ 100 mls/hr 1X ONCE IV Last administered on 08/15/16 15:25; Start 08/15/16 at 14:00; Stop 08/15/16 at 14:59; Status DC Furosemide 40 mg 40 mg 1X ONCE IVP Last administered on 08/15/16 16:22; Start 08/15/16 at 15:00; Stop 08/15/16 at 15:01; Status DC Albumin Human (Albuminar) 100 ml @ 100 mls/hr 1X ONCE IV Last administered on 08/16/16 08:41; Start 08/16/16 at 09:00; Stop 08/16/16 at 09:59; Status DC Furosemide (Lasix) 40 mg 1X ONCE IVP Last administered on 08/16/16 09:45; Start 08/16/16 at 10:00; Stop 08/16/16 at 10:01; Status DC Warfarin Sodium 4 mg 4 mg 1X WARF ONCE PO Last administered on 08/15/16 16:33 ; Start 08/15/16 at 16:00; Stop 08/15/16 at 16:01; Status DC Dobutamine HCl/ Dextrose 250 ml @ 0 mls/hr CONT PRN PRN IV SEE I/O RECORD Last administered on 09/02/16 13:15; Start 08/15/16 at 14:53 Sodium Bicarbonate 50 meq 50 meq Q2HR IV Last administered on 08/15/16 18:20; Start 08/15/16 at 16:00; Stop 08/15/16 at 18:30; Status DC Magnesium Sulfate/ Dextrose (Magnesium Sulfate PREMIX 2GM) 50 ml @ 25 mls/hr PRN DAILY PRN IV for Mag < 1.7 on am labs; Start 08/15/16 at 15:30 Warfarin Sodium (Coumadin) 4 mg 1X WARF ONCE PO Last administered on 08/16/16 17:28; Start 08/16/16 at 16:00; Stop 08/16/16 at 16:01; Status DC Ondansetron HCl 4 mg 4 mg PRN Q6HRS PRN IV nausea Last administered on 00:53; Start 08/16/16 at 20:30 Ceftriaxone Sodium 1 gm/ Sodium Chloride 50 ml @ 100 mls/hr Q24H IV Last administered on 08/19/16 10:00; Start 08/17/16 at 10:00; Stop 08/19/16 at 12:56; Status DC Sodium Chloride (Iv Sodium Chloride 0.9% 1000ml Bag) 1,000 ml @ 75 mls/hr [id number] IV Last administered on 08/19/16 16:58; Start 08/17/16 at 10:15; Stop at 09:27; Status DC Warfarin Sodium (Coumadin) 5 mg 1X WARF ONCE PO ; Start 08/17/16 at 16:00; Stop 08/17/16 at 16:01; Status DC Heparin Sodium/ Sodium Chloride 1,000 unit 1X ONCE IART Last administered on 11:45; Start 08/18/16 at 11:30; Stop 08/18/16 at 11:31; Status DC Midazolam HCl (Versed) 2 mg 1X ONCE IV Last administered on 08/18/16 11:46; Start 08/18/16 at 11:30; Stop 08/18/16 at 11:31; Status DC Fentanyl Citrate (Fentanyl 2ml Vial) 100 mcg 1X ONCE IV Last administered on 11:47; Start 08/18/16 at 11:30; Stop 08/18/16 at 11:31; Status DC Lidocaine/ Epinephrine 15 ml 15 ml 1X ONCE IJ Last administered on 08/18/16 11 :44; Start 08/18/16 at 11:30; Stop 08/18/16 at 11:31; Status DC Vancomycin HCl 250 ml @ 250 mls/hr 1X ONCE IRR Last administered on 08/18/16 11:45; Start 08/18/16 at 11:30; Stop 08/18/16 at 12:29; Status DC Heparin Sodium (Porcine) (Hep Lock Adult) 500 unit 1X ONCE IV Last administered on 08/18/16 11:46; Start 08/18/16 at 11:30; Stop 08/18/16 at 11:31; Status DC Heparin Sodium (Porcine) (Hep Lock Adult) 500 unit STK-MED ONCE IV ; Start at 09:29; Stop 08/18/16 at 11:42; Status DC Lidocaine/ Epinephrine 20 ml 20 ml STK-MED ONCE .ROUTE ; Start 08/18/16 at 09:29 ; Stop 08/18/16 at 11:42; Status DC Heparin Sodium/ Sodium Chloride 500 ml @ As Directed STK-MED ONCE .ROUTE ; Start 08/18/16 at 09:29; Stop 08/18/16 at 11:42; Status DC Vancomycin HCl 250 ml @ As Directed STK-MED ONCE .ROUTE ; Start 08/18/16 at 09: 29; Stop 08/18/16 at 11:42; Status DC Fentanyl Citrate (Fentanyl 2ml Vial) 100 mcg STK-MED ONCE .ROUTE ; Start at 10:29; Stop 08/18/16 at 11:43; Status DC Midazolam HCl 2 mg 2 mg STK-MED ONCE .ROUTE ; Start 08/18/16 at 10:30; Stop at 11:43; Status DC Iron Sucrose/ Sodium Chloride (Venofer/Iv Sodium Chloride 0.9% 100ml) 110 ml @ 55 mls/hr 3X/WEEK IV Last administered on 08/28/16 09:10; Start 08/19/16 at 09: 00; Stop 08/28/16 at 10:59; Status DC Warfarin Sodium (Coumadin) 5 mg 1X WARF ONCE PO Last administered on 08/18/16 17:56; Start 08/18/16 at 16:00; Stop 08/18/16 at 16:01; Status DC Warfarin Sodium (Coumadin) 3 mg 1X WARF ONCE PO ; Start 08/19/16 at 16:00; Stop 08/19/16 at 16:01; Status Cancel Cefpodoxime Proxetil (Vantin) 100 mg BID PO Last administered on 08/26/16 20: 40; Start 08/19/16 at 21:00; Stop 08/26/16 at 21:01; Status DC Warfarin Sodium (Coumadin) 2.5 mg 1X WARF ONCE PO Last administered on 16:59; Start 08/19/16 at 16:00; Stop 08/19/16 at 16:01; Status DC Senna/Docusate Sodium 1 tab 1 tab PRN BID PRN PO CONSTIPATION Last administered on 08/20/16 14:18; Start 08/19/16 at 13:30; Stop 08/20/16 at 14:43; Status DC Sodium Chloride 250 ml @ 0 mls/hr 1X ONCE IV Last administered on 08/19/16 14: 33; Start 08/19/16 at 13:45; Stop 08/19/16 at 13:53; Status DC Sodium Chloride (Iv Sodium Chloride 0.9% 500ml Bag) 500 ml @ 0 mls/hr 1X ONCE IV Last administered on 08/19/16 16:58; Start 08/19/16 at 16:00; Stop 08/19/16 at 16:01; Status DC Senna/Docusate Sodium (Senna Plus) 1 tab PRN BID PRN PO CONSTIPATION Last administered on 09/03/16 18:07; Start 08/20/16 at 10:00 Bisacodyl (Dulcolax Supp) 10 mg 1X ONCE [place] ; Start 08/20/16 at 11:00; Stop at 11:00; Status DC Bisacodyl (Dulcolax Supp) 10 mg 1X ONCE [place] Last administered on 08/20/16 16:49 ; Start 08/20/16 at 14:30; Stop 08/20/16 at 14:31; Status DC Warfarin Sodium (Coumadin) 2 mg 1X WARF ONCE PO Last administered on 08/20/16 16:48; Start 08/20/16 at 16:00; Stop 08/20/16 at 16:01; Status DC Mineral Oil (Fleet Mineral Oil) 133 ml 1X ONCE [place] ; Start 08/21/16 at 20:00; Stop 08/21/16 at 20:00; Status DC Non-Formulary Medication 1 ea Q4H PO Last administered on 08/21/16 16:18; Start 08/21/16 at 12:00; Stop 08/21/16 at 16:01; Status DC Sodium Bicarbonate 50 meq Q6H IV Last administered on 08/21/16 20:16; Start 08/21/16 at 14:00; Stop 08/21/16 at 20:01; Status DC Warfarin Sodium (Coumadin) 3 mg 1X WARF ONCE PO Last administered on 08/21/16 16:16; Start 08/21/16 at 16:00; Stop 08/21/16 at 16:01; Status DC Warfarin Sodium (Coumadin) 2.5 mg 1X WARF ONCE PO Last administered on 16:00; Start 08/22/16 at 16:00; Stop 08/22/16 at 16:01; Status DC Warfarin Sodium (Coumadin) 3 mg 1X WARF ONCE PO Last administered on 08/23/16 18:28; Start 08/23/16 at 16:00; Stop 08/23/16 at 16:01; Status DC Lidocaine/ Epinephrine (Xylocaine 2%-Epi 1:100,000) 20 ml STK-MED ONCE .ROUTE ; Start 08/24/16 at 10:54; Stop 08/24/16 at 10:55; Status DC Heparin Sodium (Porcine) 70490 unit 10,000 unit STK-MED ONCE .ROUTE ; Start 03/02 at 10:54; Stop 08/24/16 at 10:55; Status DC Heparin Sodium/ Sodium Chloride 500 ml @ As Directed STK-MED ONCE .ROUTE ; Start 08/24/16 at 10:54; Stop 08/24/16 at 10:55; Status DC Darbepoetin Dino (Aranesp) 60 mcg [id number] SQ Last administered on 08/31/16 21 :27; Start 08/24/16 at 21:00 Fentanyl Citrate (Fentanyl 2ml Vial) 100 mcg STK-MED ONCE .ROUTE ; Start at 11:26; Stop 08/24/16 at 11:27; Status DC Midazolam HCl 2 mg 2 mg STK-MED ONCE .ROUTE ; Start 08/24/16 at 11:26; Stop 03/02 at 11:27; Status DC Cefazolin Sodium (Ancef 1gm Ivpb For Omni) 0 ml @ As Directed STK-MED ONCE IV ; Start 08/24/16 at 11:26; Stop 08/24/16 at 11:27; Status DC Heparin Sodium/ Sodium Chloride 1,000 unit 1X ONCE IART Last administered on 12:23; Start 08/24/16 at 11:45; Stop 08/24/16 at 11:46; Status DC Lidocaine/ Epinephrine (Xylocaine 2%-Epi 1:100,000) 20 ml 1X ONCE IJ Last administered on 08/24/16 12:23; Start 08/24/16 at 11:45; Stop 08/24/16 at 11:46 ; Status DC Fentanyl Citrate (Fentanyl 2ml Vial) 100 mcg STK-MED ONCE .ROUTE ; Start at 11:58; Stop 08/24/16 at 11:59; Status DC Midazolam HCl (Versed) 2 mg STK-MED ONCE .ROUTE ; Start 08/24/16 at 11:58; Stop 08/24/16 at 11:59; Status DC Heparin Sodium (Porcine) (Heparin Sodium) 4,300 unit 1X ONCE IV Last administered on 08/24/16 12:15; Start 08/24/16 at 12:15; Stop 08/24/16 at 12:21 ; Status DC Midazolam HCl (Versed) 2 mg 1X ONCE IV Last administered on 08/24/16 12:30; Start 08/24/16 at 12:30; Stop 08/24/16 at 12:31; Status DC Fentanyl Citrate 100 mcg 100 mcg 1X ONCE IV Last administered on 08/24/16 12: 30; Start 08/24/16 at 12:30; Stop 08/24/16 at 12:31; Status DC Cefazolin Sodium (Ancef 1gm Ivpb For Omni) 50 ml @ 100 mls/hr 1X ONCE IV Last administered on 08/24/16 12:29; Start 08/24/16 at 12:30; Stop 08/24/16 at 12:59; Status DC Warfarin Sodium (Coumadin) 4 mg 1X WARF ONCE PO Last administered on 18:08; Start 08/24/16 at 16:00; Stop 08/24/16 at 16:01; Status DC Mineral Oil (Fleet Mineral Oil) 133 ml PRN DAILY PRN [place] CONSTIPATION; Start 03/02 at 19:30 Info (PHARMACY MONITORING -- do not chart) 1 each PRN DAILY PRN MC SEE COMMENTS ; Start 08/25/16 at 12:45; Stop 08/27/16 at 13:18; Status DC Info (PHARMACY MONITORING -- do not chart) 1 each PRN DAILY PRN MC SEE COMMENTS ; Start 08/25/16 at 12:45; Stop 08/27/16 at 13:18; Status DC Warfarin Sodium (Coumadin) 4 mg 1X WARF ONCE PO Last administered on 16:11; Start 08/25/16 at 16:00; Stop 08/25/16 at 16:01; Status DC Tramadol HCl (Ultram) 50 mg PRN TID PRN PO PAIN Last administered on 09/02/16 21:38; Start 08/25/16 at 15:45 Info (PHARMACY MONITORING -- do not chart) 1 each PRN DAILY PRN MC SEE COMMENTS ; Start 08/26/16 at 06:45; Stop 08/27/16 at 13:18; Status DC Warfarin Sodium (Coumadin) 4 mg 1X WARF ONCE PO Last administered on 17:13; Start 08/26/16 at 16:00; Stop 08/26/16 at 16:01; Status DC Info (PHARMACY MONITORING -- do not chart) 1 each PRN DAILY PRN MC SEE COMMENTS ; Start 08/27/16 at 08:00; Status UNV Info (PHARMACY MONITORING -- do not chart) 1 each PRN DAILY PRN MC SEE COMMENTS ; Start 08/27/16 at 08:00; Status Cancel Warfarin Sodium (Coumadin) 4 mg 1X WARF ONCE PO Last administered on 18:32; Start 08/27/16 at 16:00; Stop 08/27/16 at 16:01; Status DC Warfarin Sodium 3 mg 3 mg 1X WARF ONCE PO Last administered on 08/28/16 17:15 ; Start 08/28/16 at 16:00; Stop 08/28/16 at 16:01; Status DC Sodium Chloride (Iv Sodium Chloride 0.9% 1000ml Bag) 1,000 ml @ 1,000 mls/hr Q1H PRN IV hypotension; Start 08/28/16 at 10:42; Stop 08/28/16 at 16:41; Status DC Sodium Chloride (Normal Saline Flush) 10 ml 1X PRN PRN IV AP catheter pack; Start 08/28/16 at 10:45; Stop 08/29/16 at 10:44; Status DC Sodium Chloride (Normal Saline Flush) 10 ml 1X PRN PRN IV CHANGE CONTROL MANAGER catheter pack; Start 08/28/16 at 10:45; Stop 08/29/16 at 10:44; Status DC Info (PHARMACY MONITORING -- do not chart) 1 each PRN DAILY PRN MC SEE COMMENTS ; Start 08/28/16 at 10:45; Status UNV Info (PHARMACY MONITORING -- do not chart) 1 each PRN DAILY PRN MC SEE COMMENTS ; Start 08/28/16 at 10:45; Status UNV Warfarin Sodium (Coumadin) 2.5 mg 1X WARF ONCE PO Last administered on 17:00; Start 08/29/16 at 16:00; Stop 08/29/16 at 16:01; Status DC Warfarin Sodium (Coumadin) 2 mg 1X WARF ONCE PO Last administered on 17:58; Start 08/30/16 at 16:00; Stop 08/30/16 at 16:01; Status DC Artificial Tears (Artificial Tears) 1 drop PRN Q15MIN PRN OU DRY EYE Last administered on 08/30/16 21:21; Start 08/30/16 at 18:00 Info (PHARMACY MONITORING -- do not chart) 1 each PRN DAILY PRN MC SEE COMMENTS ; Start 08/31/16 at 08:15 Info (PHARMACY MONITORING -- do not chart) 1 each PRN DAILY PRN MC SEE COMMENTS ; Start 08/31/16 at 08:15; Status UNV Warfarin Sodium (Coumadin - No Dose Today) 1 each 1X WARF ONCE MC ; Start 08/31 at 16:00; Stop 08/31/16 at 16:01; Status DC Warfarin Sodium (Coumadin) 2 mg 1X WARF ONCE PO Last administered on 17:47; Start 09/01/16 at 16:00; Stop 09/01/16 at 16:01; Status DC Zolpidem Tartrate (Ambien) 5 mg PRN QHS PRN PO INSOMNIA, MAY REPEAT IN 1HR Last administered on 09/02/16 22:31; Start 09/01/16 at 21:00 Warfarin Sodium 3 mg 3 mg 1X WARF ONCE PO Last administered on 09/02/16 17:30 ; Start 09/02/16 at 16:00; Stop 09/02/16 at 16:01; Status DC Sodium Chloride (Iv Sodium Chloride 0.9% 1000ml Bag) 1,000 ml @ 1,000 mls/hr Q1H PRN IV hypotension; Start 09/02/16 at 10:45; Stop 09/02/16 at 16:44; Status DC Info (PHARMACY MONITORING -- do not chart) 1 each PRN DAILY PRN MC SEE COMMENTS ; Start 09/02/16 at 10:45; Status UNV Nystatin (Nystop) 1 maria teresa BID TP Last administered on 09/03/16 08:56; Start at 21:00 Furosemide (Lasix) 40 mg [id number] IVP Last administered on 09/03/16 18:07; Start 09/03/16 at 10:30 Alprazolam (Xanax) 0.25 mg PRN Q8HRS PRN PO ANXIETY / AGITATION; Start at 10:00 Warfarin Sodium (Coumadin) 3 mg 1X WARF ONCE PO Last administered on 18:07; Start 09/03/16 at 16:00; Stop 09/03/16 at 16:01; Status DC Active Scripts Active Entresto 24 mg-26 mg Tablet (Sacubitril/Valsartan) 1 Each Tablet 1 Tab PO BID Coumadin (Warfarin Sodium) 2.5 Mg Tablet 2.5 Mg PO DAILY16 Reported Reglan (Metoclopramide Hcl) 10 Mg Tablet 5 Mg PO PRN BID PRN Atorvastatin Calcium 40 Mg Tablet 1 Tab PO DAILY Colestid (Colestipol Hcl) 1 Gm Tablet 1 Gm PO TID Pacerone (Amiodarone Hcl) 200 Mg Tablet 200 Mg PO DAILY Lasix (Furosemide) 80 Mg Tablet 1 Tab PO BID Gabapentin 100 Mg Capsule 1 Cap PO TID Aspir 81 (Aspirin) 81 Mg Tablet.dr 1 Tab PO DAILY Coreg (Carvedilol) 6.25 Mg Tablet 1 Tab PO BID K-Tab ER (Potassium Chloride) 20 Meq Tablet.er 20 Meq PO BID Vitals/I & O Vital Sign - Last 24 Hours 09/02/16 09/02/16 09/02/16 09/03/16 21:38 22:38 22:45 03:51 Temp 97.6 97.9 97.6 97.9 Pulse 71 72 Resp 14 B/P 90/55 100/63 Pulse Ox 91 93 O2 Delivery Room Air Room Air Room Air Nasal Cannula O2 Flow Rate 2.0 09/03/16 09/03/16 09/03/16 09/03/16 07:00 08:00 08:55 08:56 Temp 98.1 98.1 Pulse 70 73 73 Resp 18 B/P 106/56 Pulse Ox 100 O2 Delivery Room Air Room Air O2 Flow Rate 2.0 09/03/16 09/03/16 09/03/16 09/03/16 11:18 15:43 18:07 19:31 Temp 98.0 98.1 98.1 98.0 98.1 98.1 Pulse 77 71 77 72 Resp 16 B/P 95/71 106/61 94/61 Pulse Ox 100 98 95 O2 Delivery Room Air Room Air Room Air Intake and Output 09/02/16 09/02/16 09/03/16 15:00 23:00 07:00 Intake Total 350 ml 0 ml Output Total 0 ml Balance 350 ml 0 ml HEATHER CHERRY MD Sep 03, 2016 19:45
[2016-09-03] MEDS: ZOLPIDEM 5 MG TABLET. PO PRN (20:34)
[2016-09-03] MEDS: ATORVASTATIN CALCIUM 40 MG TABLET. PO SCH (20:34)
[2016-09-03] MEDS: ALPRAZolam 0.25 MG TABLET PO PRN (20:34)
[2016-09-04 03:35] VITALS: BP 99/63
[2016-09-04 07:00] VITALS: BP 105/66
[2016-09-04] MEDS: INSULIN ASPART 300 UNITS/3 ML INSULN.PEN SQ SCH ×3 (08:00→17:40)
[2016-09-04] MEDS: FUROSEMIDE 40 MG/4 ML VIAL. IVP SCH ×2 (09:00→14:00)
--- NOTE | 2016-09-04 09:12 | PDOC ---
PROGRESS NOTES Subjective Subjective No new complaints. Objective Objective Vital Signs Date Time Temp Pulse Resp B/P Pulse Ox O2 Delivery O2 Flow Rate FiO2 09/04/16 07:00 97.9 68 16 105/66 93 Room Air 97.9 09/03/16 08:00 2.0 Intake and Output 09/04/16 07:00 Intake Total 889 ml Output Total 350 ml Balance 539 ml Intake Oral 750 ml IV Total 139 ml Output Urine Total 350 ml # Bowel Movements 1 Physical Exam Physical Exam She is alert and comfortable supine on dialysis table.She had brace to her right foot. Assessment Assessment Problems Medical Problems: (1) Acute on chronic renal failure Status: Acute Plan Plan of Care To continue present physical and occupational therapy follow up while waiting for discharge to home with her daughter on 09/06/2016. Comment Review of Relevant I have reviewed the following items marquise (where applicable) has been applied. Labs Laboratory Tests Test 09/02/16 12:34 09/02/16 17:17 09/02/16 20:23 09/03/16 05:15 Glucose (Fingerstick) 85mg/dL (70-99) 192mg/dL (70-99) 143mg/dL (70-99) White Blood Count 6.2x10^3/uL (4.0-11.0) Red Blood Count 3.78x10^6/uL (4.30-5.70) Hemoglobin 9.8g/dL (13.0-17.5) Hematocrit 31.1% (39.0-53.0) Mean Corpuscular Volume 82fL (79-100) Mean Corpuscular Hemoglobin 26pg (25-35) Mean Corpuscular Hemoglobin Concent 32g/dL (31-37) Red Cell Distribution Width 23.5% (11.5-14.5) Platelet Count 99x10^3/uL (140-400) Neutrophils (%) (Auto) 74% (31-73) Lymphocytes (%) (Auto) 13% (24-48) Monocytes (%) (Auto) 10% (0-9) Eosinophils (%) (Auto) 2% (0-3) Basophils (%) (Auto) 1% (0-3) Neutrophils # (Auto) 4.6x10^3uL (1.8-7.7) Lymphocytes # (Auto) 0.8x10^3/uL (1.0-4.8) Monocytes # (Auto) 0.6x10^3/uL (0.0-1.1) Eosinophils # (Auto) 0.1x10^3/uL (0.0-0.7) Basophils # (Auto) 0.1x10^3/uL (0.0-0.2) Prothrombin Time 24.5SEC (11.7-14.0) Prothromb Time International Ratio 2.4 (0.8-1.1) Sodium Level 136mmol/L (136-145) Potassium Level 4.0mmol/L (3.5-5.1) Chloride Level 99mmol/L (98-107) Carbon Dioxide Level 30mmol/L (21-32) Anion Gap 7 (6-14) Blood Urea Nitrogen 31mg/dL (8-26) Creatinine 2.3mg/dL (0.7-1.3) Estimated GFR (Cockcroft-Gault) 33.9 Glucose Level 134mg/dL (70-99) Calcium Level 7.7mg/dL (8.5-10.1) Test 09/03/16 08:15 09/03/16 11:56 09/03/16 16:43 09/03/16 20:57 Glucose (Fingerstick) 129mg/dL (70-99) 128mg/dL (70-99) 138mg/dL (70-99) 120mg/dL (70-99) Laboratory Tests Test 09/03/16 11:56 09/03/16 16:43 09/03/16 20:57 Glucose (Fingerstick) 128mg/dL (70-99) 138mg/dL (70-99) 120mg/dL (70-99) Microbiology 08/15/16 Urine Culture - Final, Complete 08/15/16 Urine Culture Result 1 (JV) - Final, Complete 08/15/16 Urine Culture Result 2 (JV) - Final, Complete 08/15/16 Antimicrobic Susceptibility - Final, Complete Medications Current Medications Insulin Aspart (Novolog) 0-5 UNITS TIDWMEALS SQ Last administered on 08/30/16t 12:00; Start 08/14/16 at 17:30 Dextrose 12.5 gm 12.5 gm PRN Q15MIN PRN IV SEE COMMENTS; Start 08/14/16 at 16: 45 Sodium Chloride (Iv Sodium Chloride 0.9% 1000ml Bag) 1,000 ml @ 100 mls/hr Q10H IV Last administered on 08/14/16 18:53; Start 08/14/16 at 17:30; Stop 08/15/16 at 03:29; Status DC Amiodarone HCl (Cordarone) 200 mg DAILY PO Last administered on 09/03/16 08:55 ; Start 08/15/16 at 09:00 Aspirin (Ecotrin) 81 mg DAILY PO Last administered on 09/03/16 08:55; Start at 09:00 Atorvastatin Calcium (Lipitor) 40 mg QHS PO Last administered on 09/03/16 20: 34; Start 08/14/16 at 21:00 Carvedilol (Coreg) 6.25 mg BIDWMEALS PO Last administered on 09/03/16 18:07; Start 08/14/16 at 17:30 Colestipol HCl (Colestid) 1 gm TID PO Last administered on 08/17/16 20:55; Start 08/14/16 at 21:00; Stop 08/18/16 at 10:08; Status DC Metoclopramide HCl (Reglan) 5 mg PRN BID PRN PO NAUSEA; Start 08/14/16 at 16:45 ; Stop 08/16/16 at 10:25; Status DC Sacubitril/ Valsartan (Entresto 24 Mg-26 Mg) 1 tab BID PO Last administered on 08/17/16 09:14; Start 08/14/16 at 21:00; Stop 08/17/16 at 10:16; Status DC Warfarin Sodium (Coumadin) 2.5 mg DAILY16 PO Last administered on 08/14/16 18: 50; Start 08/14/16 at 18:00; Stop 08/15/16 at 14:13; Status DC Warfarin Sodium (Coumadin Per Physician) 1 each PRN DAILY PRN MC SEE COMMENTS; Start 08/14/16 at 17:15; Stop 08/15/16 at 09:54; Status DC Sodium Polystyrene Sulfonate (Kayexalate) 60 gm 1X ONCE PO Last administered on 08/14/16 18:51; Start 08/14/16 at 18:30; Stop 08/14/16 at 18:31; Status DC Warfarin Sodium (Coumadin Per Pharmacy) 1 each PRN DAILY PRN MC SEE COMMENTS Last administered on 09/03/16 14:01; Start 08/15/16 at 10:00 Pantoprazole Sodium 40 mg 40 mg DAILYAC PO Last administered on 09/03/16 08:55 ; Start 08/15/16 at 11:30 Dobutamine HCl/ Dextrose 250 ml @ 0 mls/hr CONT PRN IV ; Start 08/15/16 at 14:00 ; Stop 08/15/16 at 14:53; Status DC Albumin Human (Albuminar) 100 ml @ 100 mls/hr 1X ONCE IV Last administered on 08/15/16 15:25; Start 08/15/16 at 14:00; Stop 08/15/16 at 14:59; Status DC Furosemide 40 mg 40 mg 1X ONCE IVP Last administered on 08/15/16 16:22; Start 08/15/16 at 15:00; Stop 08/15/16 at 15:01; Status DC Albumin Human (Albuminar) 100 ml @ 100 mls/hr 1X ONCE IV Last administered on 08/16/16 08:41; Start 08/16/16 at 09:00; Stop 08/16/16 at 09:59; Status DC Furosemide (Lasix) 40 mg 1X ONCE IVP Last administered on 08/16/16 09:45; Start 08/16/16 at 10:00; Stop 08/16/16 at 10:01; Status DC Warfarin Sodium 4 mg 4 mg 1X WARF ONCE PO Last administered on 08/15/16 16:33 ; Start 08/15/16 at 16:00; Stop 08/15/16 at 16:01; Status DC Dobutamine HCl/ Dextrose 250 ml @ 0 mls/hr CONT PRN PRN IV SEE I/O RECORD Last administered on 09/04/16 05:51; Start 08/15/16 at 14:53 Sodium Bicarbonate 50 meq 50 meq Q2HR IV Last administered on 08/15/16 18:20; Start 08/15/16 at 16:00; Stop 08/15/16 at 18:30; Status DC Magnesium Sulfate/ Dextrose (Magnesium Sulfate PREMIX 2GM) 50 ml @ 25 mls/hr PRN DAILY PRN IV for Mag < 1.7 on am labs; Start 08/15/16 at 15:30 Warfarin Sodium (Coumadin) 4 mg 1X WARF ONCE PO Last administered on 08/16/16 17:28; Start 08/16/16 at 16:00; Stop 08/16/16 at 16:01; Status DC Ondansetron HCl 4 mg 4 mg PRN Q6HRS PRN IV nausea Last administered on 00:53; Start 08/16/16 at 20:30 Ceftriaxone Sodium 1 gm/ Sodium Chloride 50 ml @ 100 mls/hr Q24H IV Last administered on 08/19/16 10:00; Start 08/17/16 at 10:00; Stop 08/19/16 at 12:56; Status DC Sodium Chloride (Iv Sodium Chloride 0.9% 1000ml Bag) 1,000 ml @ 75 mls/hr [id number] IV Last administered on 08/19/16 16:58; Start 08/17/16 at 10:15; Stop at 09:27; Status DC Warfarin Sodium (Coumadin) 5 mg 1X WARF ONCE PO ; Start 08/17/16 at 16:00; Stop 08/17/16 at 16:01; Status DC Heparin Sodium/ Sodium Chloride 1,000 unit 1X ONCE IART Last administered on 11:45; Start 08/18/16 at 11:30; Stop 08/18/16 at 11:31; Status DC Midazolam HCl (Versed) 2 mg 1X ONCE IV Last administered on 08/18/16 11:46; Start 08/18/16 at 11:30; Stop 08/18/16 at 11:31; Status DC Fentanyl Citrate (Fentanyl 2ml Vial) 100 mcg 1X ONCE IV Last administered on 11:47; Start 08/18/16 at 11:30; Stop 08/18/16 at 11:31; Status DC Lidocaine/ Epinephrine 15 ml 15 ml 1X ONCE IJ Last administered on 08/18/16 11 :44; Start 08/18/16 at 11:30; Stop 08/18/16 at 11:31; Status DC Vancomycin HCl 250 ml @ 250 mls/hr 1X ONCE IRR Last administered on 08/18/16 11:45; Start 08/18/16 at 11:30; Stop 08/18/16 at 12:29; Status DC Heparin Sodium (Porcine) (Hep Lock Adult) 500 unit 1X ONCE IV Last administered on 08/18/16 11:46; Start 08/18/16 at 11:30; Stop 08/18/16 at 11:31; Status DC Heparin Sodium (Porcine) (Hep Lock Adult) 500 unit STK-MED ONCE IV ; Start at 09:29; Stop 08/18/16 at 11:42; Status DC Lidocaine/ Epinephrine 20 ml 20 ml STK-MED ONCE .ROUTE ; Start 08/18/16 at 09:29 ; Stop 08/18/16 at 11:42; Status DC Heparin Sodium/ Sodium Chloride 500 ml @ As Directed STK-MED ONCE .ROUTE ; Start 08/18/16 at 09:29; Stop 08/18/16 at 11:42; Status DC Vancomycin HCl 250 ml @ As Directed STK-MED ONCE .ROUTE ; Start 08/18/16 at 09: 29; Stop 08/18/16 at 11:42; Status DC Fentanyl Citrate (Fentanyl 2ml Vial) 100 mcg STK-MED ONCE .ROUTE ; Start at 10:29; Stop 08/18/16 at 11:43; Status DC Midazolam HCl 2 mg 2 mg STK-MED ONCE .ROUTE ; Start 08/18/16 at 10:30; Stop at 11:43; Status DC Iron Sucrose/ Sodium Chloride (Venofer/Iv Sodium Chloride 0.9% 100ml) 110 ml @ 55 mls/hr 3X/WEEK IV Last administered on 08/28/16 09:10; Start 08/19/16 at 09: 00; Stop 08/28/16 at 10:59; Status DC Warfarin Sodium (Coumadin) 5 mg 1X WARF ONCE PO Last administered on 08/18/16 17:56; Start 08/18/16 at 16:00; Stop 08/18/16 at 16:01; Status DC Warfarin Sodium (Coumadin) 3 mg 1X WARF ONCE PO ; Start 08/19/16 at 16:00; Stop 08/19/16 at 16:01; Status Cancel Cefpodoxime Proxetil (Vantin) 100 mg BID PO Last administered on 08/26/16 20: 40; Start 08/19/16 at 21:00; Stop 08/26/16 at 21:01; Status DC Warfarin Sodium (Coumadin) 2.5 mg 1X WARF ONCE PO Last administered on 16:59; Start 08/19/16 at 16:00; Stop 08/19/16 at 16:01; Status DC Senna/Docusate Sodium 1 tab 1 tab PRN BID PRN PO CONSTIPATION Last administered on 08/20/16 14:18; Start 08/19/16 at 13:30; Stop 08/20/16 at 14:43; Status DC Sodium Chloride 250 ml @ 0 mls/hr 1X ONCE IV Last administered on 08/19/16 14: 33; Start 08/19/16 at 13:45; Stop 08/19/16 at 13:53; Status DC Sodium Chloride (Iv Sodium Chloride 0.9% 500ml Bag) 500 ml @ 0 mls/hr 1X ONCE IV Last administered on 08/19/16 16:58; Start 08/19/16 at 16:00; Stop 08/19/16 at 16:01; Status DC Senna/Docusate Sodium (Senna Plus) 1 tab PRN BID PRN PO CONSTIPATION Last administered on 09/03/16 18:07; Start 08/20/16 at 10:00 Bisacodyl (Dulcolax Supp) 10 mg 1X ONCE ID ; Start 08/20/16 at 11:00; Stop at 11:00; Status DC Bisacodyl (Dulcolax Supp) 10 mg 1X ONCE ID Last administered on 08/20/16 16:49 ; Start 08/20/16 at 14:30; Stop 08/20/16 at 14:31; Status DC Warfarin Sodium (Coumadin) 2 mg 1X WARF ONCE PO Last administered on 08/20/16 16:48; Start 08/20/16 at 16:00; Stop 08/20/16 at 16:01; Status DC Mineral Oil (Fleet Mineral Oil) 133 ml 1X ONCE ID ; Start 08/21/16 at 20:00; Stop 08/21/16 at 20:00; Status DC Non-Formulary Medication 1 ea Q4H PO Last administered on 08/21/16 16:18; Start 08/21/16 at 12:00; Stop 08/21/16 at 16:01; Status DC Sodium Bicarbonate 50 meq Q6H IV Last administered on 08/21/16 20:16; Start 08/21/16 at 14:00; Stop 08/21/16 at 20:01; Status DC Warfarin Sodium (Coumadin) 3 mg 1X WARF ONCE PO Last administered on 08/21/16 16:16; Start 08/21/16 at 16:00; Stop 08/21/16 at 16:01; Status DC Warfarin Sodium (Coumadin) 2.5 mg 1X WARF ONCE PO Last administered on 16:00; Start 08/22/16 at 16:00; Stop 08/22/16 at 16:01; Status DC Warfarin Sodium (Coumadin) 3 mg 1X WARF ONCE PO Last administered on 08/23/16 18:28; Start 08/23/16 at 16:00; Stop 08/23/16 at 16:01; Status DC Lidocaine/ Epinephrine (Xylocaine 2%-Epi 1:100,000) 20 ml STK-MED ONCE .ROUTE ; Start 08/24/16 at 10:54; Stop 08/24/16 at 10:55; Status DC Heparin Sodium (Porcine) 14346 unit 10,000 unit STK-MED ONCE .ROUTE ; Start 03/02 at 10:54; Stop 08/24/16 at 10:55; Status DC Heparin Sodium/ Sodium Chloride 500 ml @ As Directed STK-MED ONCE .ROUTE ; Start 08/24/16 at 10:54; Stop 08/24/16 at 10:55; Status DC Darbepoetin Dino (Aranesp) 60 mcg WEEKLYHS SQ Last administered on 08/31/16 21 :27; Start 08/24/16 at 21:00 Fentanyl Citrate (Fentanyl 2ml Vial) 100 mcg STK-MED ONCE .ROUTE ; Start at 11:26; Stop 08/24/16 at 11:27; Status DC Midazolam HCl 2 mg 2 mg STK-MED ONCE .ROUTE ; Start 08/24/16 at 11:26; Stop 03/02 at 11:27; Status DC Cefazolin Sodium (Ancef 1gm Ivpb For Omni) 0 ml @ As Directed STK-MED ONCE IV ; Start 08/24/16 at 11:26; Stop 08/24/16 at 11:27; Status DC Heparin Sodium/ Sodium Chloride 1,000 unit 1X ONCE IART Last administered on 12:23; Start 08/24/16 at 11:45; Stop 08/24/16 at 11:46; Status DC Lidocaine/ Epinephrine (Xylocaine 2%-Epi 1:100,000) 20 ml 1X ONCE IJ Last administered on 08/24/16 12:23; Start 08/24/16 at 11:45; Stop 08/24/16 at 11:46 ; Status DC Fentanyl Citrate (Fentanyl 2ml Vial) 100 mcg STK-MED ONCE .ROUTE ; Start at 11:58; Stop 08/24/16 at 11:59; Status DC Midazolam HCl (Versed) 2 mg STK-MED ONCE .ROUTE ; Start 08/24/16 at 11:58; Stop 08/24/16 at 11:59; Status DC Heparin Sodium (Porcine) (Heparin Sodium) 4,300 unit 1X ONCE IV Last administered on 08/24/16 12:15; Start 08/24/16 at 12:15; Stop 08/24/16 at 12:21 ; Status DC Midazolam HCl (Versed) 2 mg 1X ONCE IV Last administered on 08/24/16 12:30; Start 08/24/16 at 12:30; Stop 08/24/16 at 12:31; Status DC Fentanyl Citrate 100 mcg 100 mcg 1X ONCE IV Last administered on 08/24/16 12: 30; Start 08/24/16 at 12:30; Stop 08/24/16 at 12:31; Status DC Cefazolin Sodium (Ancef 1gm Ivpb For Omni) 50 ml @ 100 mls/hr 1X ONCE IV Last administered on 08/24/16 12:29; Start 08/24/16 at 12:30; Stop 08/24/16 at 12:59; Status DC Warfarin Sodium (Coumadin) 4 mg 1X WARF ONCE PO Last administered on 18:08; Start 08/24/16 at 16:00; Stop 08/24/16 at 16:01; Status DC Mineral Oil (Fleet Mineral Oil) 133 ml PRN DAILY PRN ID CONSTIPATION; Start 03/02 at 19:30 Info (PHARMACY MONITORING -- do not chart) 1 each PRN DAILY PRN MC SEE COMMENTS ; Start 08/25/16 at 12:45; Stop 08/27/16 at 13:18; Status DC Info (PHARMACY MONITORING -- do not chart) 1 each PRN DAILY PRN MC SEE COMMENTS ; Start 08/25/16 at 12:45; Stop 08/27/16 at 13:18; Status DC Warfarin Sodium (Coumadin) 4 mg 1X WARF ONCE PO Last administered on 16:11; Start 08/25/16 at 16:00; Stop 08/25/16 at 16:01; Status DC Tramadol HCl (Ultram) 50 mg PRN TID PRN PO PAIN Last administered on 09/02/16 21:38; Start 08/25/16 at 15:45 Info (PHARMACY MONITORING -- do not chart) 1 each PRN DAILY PRN MC SEE COMMENTS ; Start 08/26/16 at 06:45; Stop 08/27/16 at 13:18; Status DC Warfarin Sodium (Coumadin) 4 mg 1X WARF ONCE PO Last administered on 17:13; Start 08/26/16 at 16:00; Stop 08/26/16 at 16:01; Status DC Info (PHARMACY MONITORING -- do not chart) 1 each PRN DAILY PRN MC SEE COMMENTS ; Start 08/27/16 at 08:00; Status UNV Info (PHARMACY MONITORING -- do not chart) 1 each PRN DAILY PRN MC SEE COMMENTS ; Start 08/27/16 at 08:00; Status Cancel Warfarin Sodium (Coumadin) 4 mg 1X WARF ONCE PO Last administered on 18:32; Start 08/27/16 at 16:00; Stop 08/27/16 at 16:01; Status DC Warfarin Sodium 3 mg 3 mg 1X WARF ONCE PO Last administered on 08/28/16 17:15 ; Start 08/28/16 at 16:00; Stop 08/28/16 at 16:01; Status DC Sodium Chloride (Iv Sodium Chloride 0.9% 1000ml Bag) 1,000 ml @ 1,000 mls/hr Q1H PRN IV hypotension; Start 08/28/16 at 10:42; Stop 08/28/16 at 16:41; Status DC Sodium Chloride (Normal Saline Flush) 10 ml 1X PRN PRN IV AP catheter pack; Start 08/28/16 at 10:45; Stop 08/29/16 at 10:44; Status DC Sodium Chloride (Normal Saline Flush) 10 ml 1X PRN PRN IV [employer] catheter pack; Start 08/28/16 at 10:45; Stop 08/29/16 at 10:44; Status DC Info (PHARMACY MONITORING -- do not chart) 1 each PRN DAILY PRN MC SEE COMMENTS ; Start 08/28/16 at 10:45; Status UNV Info (PHARMACY MONITORING -- do not chart) 1 each PRN DAILY PRN MC SEE COMMENTS ; Start 08/28/16 at 10:45; Status UNV Warfarin Sodium (Coumadin) 2.5 mg 1X WARF ONCE PO Last administered on 17:00; Start 08/29/16 at 16:00; Stop 08/29/16 at 16:01; Status DC Warfarin Sodium (Coumadin) 2 mg 1X WARF ONCE PO Last administered on 17:58; Start 08/30/16 at 16:00; Stop 08/30/16 at 16:01; Status DC Artificial Tears (Artificial Tears) 1 drop PRN Q15MIN PRN OU DRY EYE Last administered on 08/30/16 21:21; Start 08/30/16 at 18:00 Info (PHARMACY MONITORING -- do not chart) 1 each PRN DAILY PRN MC SEE COMMENTS ; Start 08/31/16 at 08:15 Info (PHARMACY MONITORING -- do not chart) 1 each PRN DAILY PRN MC SEE COMMENTS ; Start 08/31/16 at 08:15; Status UNV Warfarin Sodium (Coumadin - No Dose Today) 1 each 1X WARF ONCE MC ; Start 08/31 at 16:00; Stop 08/31/16 at 16:01; Status DC Warfarin Sodium (Coumadin) 2 mg 1X WARF ONCE PO Last administered on 17:47; Start 09/01/16 at 16:00; Stop 09/01/16 at 16:01; Status DC Zolpidem Tartrate (Ambien) 5 mg PRN QHS PRN PO INSOMNIA, MAY REPEAT IN 1HR Last administered on 09/03/16 20:34; Start 09/01/16 at 21:00 Warfarin Sodium 3 mg 3 mg 1X WARF ONCE PO Last administered on 09/02/16 17:30 ; Start 09/02/16 at 16:00; Stop 09/02/16 at 16:01; Status DC Sodium Chloride (Iv Sodium Chloride 0.9% 1000ml Bag) 1,000 ml @ 1,000 mls/hr Q1H PRN IV hypotension; Start 09/02/16 at 10:45; Stop 09/02/16 at 16:44; Status DC Info (PHARMACY MONITORING -- do not chart) 1 each PRN DAILY PRN MC SEE COMMENTS ; Start 09/02/16 at 10:45; Status UNV Nystatin (Nystop) 1 maria teresa BID TP Last administered on 09/03/16 21:00; Start at 21:00 Furosemide (Lasix) 40 mg [id number] IVP Last administered on 09/03/16 18:07; Start 09/03/16 at 10:30 Alprazolam (Xanax) 0.25 mg PRN Q8HRS PRN PO ANXIETY / AGITATION Last administered on 09/03/16 20:34; Start 09/03/16 at 10:00 Warfarin Sodium (Coumadin) 3 mg 1X WARF ONCE PO Last administered on 18:07; Start 09/03/16 at 16:00; Stop 09/03/16 at 16:01; Status DC Active Scripts Active Entresto 24 mg-26 mg Tablet (Sacubitril/Valsartan) 1 Each Tablet 1 Tab PO BID Coumadin (Warfarin Sodium) 2.5 Mg Tablet 2.5 Mg PO DAILY16 Reported Reglan (Metoclopramide Hcl) 10 Mg Tablet 5 Mg PO PRN BID PRN Atorvastatin Calcium 40 Mg Tablet 1 Tab PO DAILY Colestid (Colestipol Hcl) 1 Gm Tablet 1 Gm PO TID Pacerone (Amiodarone Hcl) 200 Mg Tablet 200 Mg PO DAILY Lasix (Furosemide) 80 Mg Tablet 1 Tab PO BID Gabapentin 100 Mg Capsule 1 Cap PO TID Aspir 81 (Aspirin) 81 Mg Tablet.dr 1 Tab PO DAILY Coreg (Carvedilol) 6.25 Mg Tablet 1 Tab PO BID K-Tab ER (Potassium Chloride) 20 Meq Tablet.er 20 Meq PO BID Vitals/I & O Vital Sign - Last 24 Hours 09/03/16 09/03/16 09/03/1609/03/17 11:18 15:43 18:07 19:31 Temp 98.0 98.1 98.1 98.0 98.1 98.1 Pulse 77 71 77 72 Resp B/P 95/71 106/61 94/61 Pulse Ox 100 98 95 O2 Delivery Room Air Room Air Room Air 09/03/16 09/03/16 09/04/16 09/04/16 19:40 23:00 03:35 07:00 Temp 98.2 97.8 97.9 98.2 97.8 97.9 Pulse 68 71 68 Resp B/P 108/76 99/63 105/66 Pulse Ox 94 94 93 O2 Delivery Room Air Room Air Room Air Room Air Intake and Output 09/03/16 09/03/16 09/04/16 15:00 23:00 07:00 Intake Total 639 ml 250 ml Output Total 350 ml Balance 289 ml 250 ml MADDIE AMBROSE MD Sep 04, 2016 09:12
--- NOTE | 2016-09-04 10:01 | PDOC ---
PROGRESS NOTES Subjective Subjective seen in dialysis Objective Objective Vital Signs Date Time Temp Pulse Resp B/P Pulse Ox O2 Delivery O2 Flow Rate FiO2 09/04/16 07:00 97.9 68 16 105/66 93 Room Air 97.9 09/03/16 08:00 2.0 Intake and Output 09/04/16 07:00 Intake Total 889 ml Output Total 350 ml Balance 539 ml Intake Oral 750 ml IV Total 139 ml Output Urine Total 350 ml # Bowel Movements 1 Physical Exam Abdomen: Normal bowel sounds, Soft, No tenderness Heart: Regular rate, Normal S1, Normal S2, Other (1-2/6 systolic murmur) Extremities: No clubbing, No cyanosis General: Alert, Oriented X3, Cooperative, No acute distress HEENT: Atraumatic, PERRLA Lungs: Clear to auscultation MUSCULOSKELETAL: No joint tenderness, No deformity, No muscular tenderness noted Neck: Supple Neuro: Normal speech Psych/Mental Status: Mood NL Skin: No rashes, No significant lesion Diagnosis Problem List Problems Medical Problems: (1) Acute on chronic renal failure Status: Acute Assessment Assessment New ESRD on dialysis,started on dialysis last week * urinary retention improved. ac on crf. possible ATN 1. ARF with CKD II ATN SONA on HD 2. a/c systolic CHF ICM EF 10% AICD 3. HTN 4. DM II with CKD II diet control 5. hyperlipidemia 6. mild to mod MR 7. moderate pulmonary HTN 8. severe weakness and debility 9. metabolic encephalopathy POA 10. moderate chronic PCL malnutrition 11.PVD PLAN: iv lasix for leg swelling and chf . dialysis today and sat. spoke with social work today waiting for dialysis slot to be opened ,close to her daughters place in [place], [place]. plans to move wednesday Improving slowly. INR2.4 Adjust Coumadin. dobutamine infusions 3 times a week Problems: Plan Plan of Care Problems Medical Problems: (1) Acute on chronic renal failure Status: Acute Comment Review of Relevant I have reviewed the following items marquise (where applicable) has been applied. Labs Laboratory Tests Test 09/03/16 11:56 09/03/16 16:43 09/03/16 20:57 Glucose (Fingerstick) 128mg/dL (70-99) 138mg/dL (70-99) 120mg/dL (70-99) Microbiology 08/15/16 Urine Culture - Final, Complete 08/15/16 Urine Culture Result 1 (JV) - Final, Complete 08/15/16 Urine Culture Result 2 (JV) - Final, Complete 08/15/16 Antimicrobic Susceptibility - Final, Complete Medications Current Medications Alprazolam (Xanax) 0.25 mg PRN Q8HRS PRN PO ANXIETY / AGITATION Last administered on 09/03/16 20:34; Start 09/03/16 at 10:00 Furosemide (Lasix) 40 mg [id number] IVP Last administered on 09/03/16 18:07; Start 09/03/16 at 10:30 Warfarin Sodium (Coumadin) 3 mg 1X WARF ONCE PO Last administered on 18:07; Start 09/03/16 at 16:00; Stop 09/03/16 at 16:01; Status DC Vitals/I & O Vital Sign - Last 24 Hours 09/03/16 09/03/16 09/03/16 09/03/16 11:18 15:43 18:07 19:31 Temp 98.0 98.1 98.1 98.0 98.1 98.1 Pulse 77 71 77 72 Resp 16 B/P 95/71 106/61 94/61 Pulse Ox 100 98 95 O2 Delivery Room Air Room Air Room Air 09/03/16 09/03/16 09/04/16 09/04/16 19:40 23:00 03:35 07:00 Temp 98.2 97.8 97.9 98.2 97.8 97.9 Pulse 68 71 68 Resp 20 16 16 B/P 108/76 99/63 105/66 Pulse Ox 94 94 93 O2 Delivery Room Air Room Air Room Air Room Air Intake and Output 09/03/16 09/03/16 09/04/16 15:00 23:00 07:00 Intake Total 639 ml 250 ml Output Total 350 ml Balance 289 ml 250 ml AFSHAN SLADE MD Sep 04, 2016 10:01
--- NOTE | 2016-09-04 10:25 | PDOC ---
Dialysis Progress Note Dialysis Note Dialysis Note SONA/ ATN in setting of SEv Cardiomyoaphty - --> ? ESRD Seen on Hemodialysis, tolerating treatment Okay Vitals on Hemodialysis: 116/52 69 afeb on Dobutamin e gtt General Appearance: Awake: Alert Oriented x 3 Neck: min JVD or ++ JVP Chest: CTA Matthew Heart: S1 S2; sys Murmur Abdomen - Soft NTND Extremities - + Edema ESRD v/s ARF/ ATN : Dialysis as below F 180 NR 3.0 Hrs 3 K 2.5 Ca 140 Na 30 HC03 Qb 350 + Qd 500+ Heparin 0 Units Uf 2-3 Kgs or to dry weight as tolerated May give 25-50 gms of 25% Albumin if needed to maintain Hemodynamic stability Treatment plan reviewed and discussed with customer contact specialist Vitals Vital Signs Vital Signs Date Time Temp Pulse Resp B/P Pulse Ox O2 Delivery O2 Flow Rate FiO2 09/04/16 07:00 97.9 68 16 105/66 93 Room Air 97.9 09/03/16 08:00 2.0 Labs Last Labs Laboratory Tests Test 09/02/16 12:34 09/02/16 17:17 09/02/16 20:23 09/03/16 05:15 Glucose (Fingerstick) 85mg/dL (70-99) 192mg/dL (70-99) 143mg/dL (70-99) White Blood Count 6.2x10^3/uL (4.0-11.0) Red Blood Count 3.78x10^6/uL (4.30-5.70) Hemoglobin 9.8g/dL (13.0-17.5) Hematocrit 31.1% (39.0-53.0) Mean Corpuscular Volume 82fL (79-100) Mean Corpuscular Hemoglobin 26pg (25-35) Mean Corpuscular Hemoglobin Concent 32g/dL (31-37) Red Cell Distribution Width 23.5% (11.5-14.5) Platelet Count 99x10^3/uL (140-400) Neutrophils (%) (Auto) 74% (31-73) Lymphocytes (%) (Auto) 13% (24-48) Monocytes (%) (Auto) 10% (0-9) Eosinophils (%) (Auto) 2% (0-3) Basophils (%) (Auto) 1% (0-3) Neutrophils # (Auto) 4.6x10^3uL (1.8-7.7) Lymphocytes # (Auto) 0.8x10^3/uL (1.0-4.8) Monocytes # (Auto) 0.6x10^3/uL (0.0-1.1) Eosinophils # (Auto) 0.1x10^3/uL (0.0-0.7) Basophils # (Auto) 0.1x10^3/uL (0.0-0.2) Prothrombin Time 24.5SEC (11.7-14.0) Prothromb Time International Ratio 2.4 (0.8-1.1) Sodium Level 136mmol/L (136-145) Potassium Level 4.0mmol/L (3.5-5.1) Chloride Level 99mmol/L (98-107) Carbon Dioxide Level 30mmol/L (21-32) Anion Gap 7 (6-14) Blood Urea Nitrogen 31mg/dL (8-26) Creatinine 2.3mg/dL (0.7-1.3) Estimated GFR (Cockcroft-Gault) 33.9 Glucose Level 134mg/dL (70-99) Calcium Level 7.7mg/dL (8.5-10.1) Test 09/03/16 08:15 09/03/16 11:56 09/03/16 16:43 09/03/16 20:57 Glucose (Fingerstick) 129mg/dL (70-99) 128mg/dL (70-99) 138mg/dL (70-99) 120mg/dL (70-99) Laboratory Tests Test 09/03/16 11:56 09/03/16 16:43 09/03/16 20:57 Glucose (Fingerstick) 128mg/dL (70-99) 138mg/dL (70-99) 120mg/dL (70-99) Assessment Assessment Problems Medical Problems: (1) Acute on chronic renal failure Status: Acute Problems: Plan Plan of Care Problems Medical Problems: (1) Acute on chronic renal failure Status: Acute ALLI SELBY MD Sep 04, 2016 10:25
[2016-09-04] MEDS ORDERED: IV NORMAL SALINE 1000ML BAG 1,000 ML IV PRN (10:55)
[2016-09-04] MEDS ORDERED: DIALYSIS PATIENT. MC PRN ×2 (11:00)
[2016-09-04] MEDS ORDERED: 0.9 % SODIUM CHLORIDE 10 ML DISP.SYRIN. IV PRN ×2 (11:00)
[2016-09-04] MEDS ORDERED: ALBUMIN HUMAN 25% 200 ML IV PRN (11:00)
--- NOTE | 2016-09-04 12:29 | PDOC ---
PROGRESS NOTES Subjective Subjective Patient in dialysis, states that she feels well today. Objective Objective Vital Signs Date Time Temp Pulse Resp B/P Pulse Ox O2 Delivery O2 Flow Rate FiO2 09/04/16 07:45 Room Air 09/04/16 07:00 97.9 68 16 105/66 93 97.9 09/03/16 08:00 2.0 Intake and Output 09/04/16 07:00 Intake Total 889 ml Output Total 350 ml Balance 539 ml Intake Oral 750 ml IV Total 139 ml Output Urine Total 350 ml # Bowel Movements 1 Physical Exam Physical Exam Unchanged cardiac exam. Assessment Assessment Problems Medical Problems: (1) Acute on chronic renal failure Status: Acute Plan Plan of Care Patient appears to be stable on current Dobutamine drip dose which will be continued until discharge. Hopeful discharge this Wednesday. Agree with current plan. Comment Review of Relevant I have reviewed the following items marquise (where applicable) has been applied. Labs Laboratory Tests Test 09/02/16 12:34 09/02/16 17:17 09/02/16 20:23 09/03/16 05:15 Glucose (Fingerstick) 85mg/dL (70-99) 192mg/dL (70-99) 143mg/dL (70-99) White Blood Count 6.2x10^3/uL (4.0-11.0) Red Blood Count 3.78x10^6/uL (4.30-5.70) Hemoglobin 9.8g/dL (13.0-17.5) Hematocrit 31.1% (39.0-53.0) Mean Corpuscular Volume 82fL (79-100) Mean Corpuscular Hemoglobin 26pg (25-35) Mean Corpuscular Hemoglobin Concent 32g/dL (31-37) Red Cell Distribution Width 23.5% (11.5-14.5) Platelet Count 99x10^3/uL (140-400) Neutrophils (%) (Auto) 74% (31-73) Lymphocytes (%) (Auto) 13% (24-48) Monocytes (%) (Auto) 10% (0-9) Eosinophils (%) (Auto) 2% (0-3) Basophils (%) (Auto) 1% (0-3) Neutrophils # (Auto) 4.6x10^3uL (1.8-7.7) Lymphocytes # (Auto) 0.8x10^3/uL (1.0-4.8) Monocytes # (Auto) 0.6x10^3/uL (0.0-1.1) Eosinophils # (Auto) 0.1x10^3/uL (0.0-0.7) Basophils # (Auto) 0.1x10^3/uL (0.0-0.2) Prothrombin Time 24.5SEC (11.7-14.0) Prothromb Time International Ratio 2.4 (0.8-1.1) Sodium Level 136mmol/L (136-145) Potassium Level 4.0mmol/L (3.5-5.1) Chloride Level 99mmol/L (98-107) Carbon Dioxide Level 30mmol/L (21-32) Anion Gap 7 (6-14) Blood Urea Nitrogen 31mg/dL (8-26) Creatinine 2.3mg/dL (0.7-1.3) Estimated GFR (Cockcroft-Gault) 33.9 Glucose Level 134mg/dL (70-99) Calcium Level 7.7mg/dL (8.5-10.1) Test 09/03/16 08:15 09/03/16 11:56 09/03/16 16:43 09/03/16 20:57 Glucose (Fingerstick) 129mg/dL (70-99) 128mg/dL (70-99) 138mg/dL (70-99) 120mg/dL (70-99) Test 09/04/16 07:50 Glucose (Fingerstick) 104mg/dL (70-99) Laboratory Tests Test 09/03/16 16:43 09/03/16 20:57 09/04/16 07:50 Glucose (Fingerstick) 138mg/dL (70-99) 120mg/dL (70-99) 104mg/dL (70-99) Microbiology 08/15/16 Urine Culture - Final, Complete 08/15/16 Urine Culture Result 1 (JV) - Final, Complete 08/15/16 Urine Culture Result 2 (VJ) - Final, Complete 08/15/16 Antimicrobic Susceptibility - Final, Complete Medications Current Medications Insulin Aspart (Novolog) 0-5 UNITS TIDWMEALS SQ Last administered on 08/30/16t 12:00; Start 08/14/16 at 17:30 Dextrose 12.5 gm 12.5 gm PRN Q15MIN PRN IV SEE COMMENTS; Start 08/14/16 at 16: 45 Sodium Chloride (Iv Sodium Chloride 0.9% 1000ml Bag) 1,000 ml @ 100 mls/hr Q10H IV Last administered on 08/14/16 18:53; Start 08/14/16 at 17:30; Stop 08/15/16 at 03:29; Status DC Amiodarone HCl (Cordarone) 200 mg DAILY PO Last administered on 09/03/16 08:55 ; Start 08/15/16 at 09:00 Aspirin (Ecotrin) 81 mg DAILY PO Last administered on 09/03/16 08:55; Start at 09:00 Atorvastatin Calcium (Lipitor) 40 mg QHS PO Last administered on 09/03/16 20: 34; Start 08/14/16 at 21:00 Carvedilol (Coreg) 6.25 mg BIDWMEALS PO Last administered on 09/03/16 18:07; Start 08/14/16 at 17:30 Colestipol HCl (Colestid) 1 gm TID PO Last administered on 08/17/16 20:55; Start 08/14/16 at 21:00; Stop 08/18/16 at 10:08; Status DC Metoclopramide HCl (Reglan) 5 mg PRN BID PRN PO NAUSEA; Start 08/14/16 at 16:45 ; Stop 08/16/16 at 10:25; Status DC Sacubitril/ Valsartan (Entresto 24 Mg-26 Mg) 1 tab BID PO Last administered on 08/17/16 09:14; Start 08/14/16 at 21:00; Stop 08/17/16 at 10:16; Status DC Warfarin Sodium (Coumadin) 2.5 mg DAILY16 PO Last administered on 08/14/16 18: 50; Start 08/14/16 at 18:00; Stop 08/15/16 at 14:13; Status DC Warfarin Sodium (Coumadin Per Physician) 1 each PRN DAILY PRN MC SEE COMMENTS; Start 08/14/16 at 17:15; Stop 08/15/16 at 09:54; Status DC Sodium Polystyrene Sulfonate (Kayexalate) 60 gm 1X ONCE PO Last administered on 08/14/16 18:51; Start 08/14/16 at 18:30; Stop 08/14/16 at 18:31; Status DC Warfarin Sodium (Coumadin Per Pharmacy) 1 each PRN DAILY PRN MC SEE COMMENTS Last administered on 09/04/16 11:01; Start 08/15/16 at 10:00 Pantoprazole Sodium 40 mg 40 mg DAILYAC PO Last administered on 09/03/16 08:55 ; Start 08/15/16 at 11:30 Dobutamine HCl/ Dextrose 250 ml @ 0 mls/hr CONT PRN IV ; Start 08/15/16 at 14:00 ; Stop 08/15/16 at 14:53; Status DC Albumin Human (Albuminar) 100 ml @ 100 mls/hr 1X ONCE IV Last administered on 08/15/16 15:25; Start 08/15/16 at 14:00; Stop 08/15/16 at 14:59; Status DC Furosemide 40 mg 40 mg 1X ONCE IVP Last administered on 08/15/16 16:22; Start 08/15/16 at 15:00; Stop 08/15/16 at 15:01; Status DC Albumin Human (Albuminar) 100 ml @ 100 mls/hr 1X ONCE IV Last administered on 08/16/16 08:41; Start 08/16/16 at 09:00; Stop 08/16/16 at 09:59; Status DC Furosemide (Lasix) 40 mg 1X ONCE IVP Last administered on 08/16/16 09:45; Start 08/16/16 at 10:00; Stop 08/16/16 at 10:01; Status DC Warfarin Sodium 4 mg 4 mg 1X WARF ONCE PO Last administered on 08/15/16 16:33 ; Start 08/15/16 at 16:00; Stop 08/15/16 at 16:01; Status DC Dobutamine HCl/ Dextrose 250 ml @ 0 mls/hr CONT PRN PRN IV SEE I/O RECORD Last administered on 09/04/16 05:51; Start 08/15/16 at 14:53 Sodium Bicarbonate 50 meq 50 meq Q2HR IV Last administered on 08/15/16 18:20; Start 08/15/16 at 16:00; Stop 08/15/16 at 18:30; Status DC Magnesium Sulfate/ Dextrose (Magnesium Sulfate PREMIX 2GM) 50 ml @ 25 mls/hr PRN DAILY PRN IV for Mag < 1.7 on am labs; Start 08/15/16 at 15:30 Warfarin Sodium (Coumadin) 4 mg 1X WARF ONCE PO Last administered on 08/16/16 17:28; Start 08/16/16 at 16:00; Stop 08/16/16 at 16:01; Status DC Ondansetron HCl 4 mg 4 mg PRN Q6HRS PRN IV nausea Last administered on 00:53; Start 08/16/16 at 20:30 Ceftriaxone Sodium 1 gm/ Sodium Chloride 50 ml @ 100 mls/hr Q24H IV Last administered on 08/19/16 10:00; Start 08/17/16 at 10:00; Stop 08/19/16 at 12:56; Status DC Sodium Chloride (Iv Sodium Chloride 0.9% 1000ml Bag) 1,000 ml @ 75 mls/hr [id number] IV Last administered on 08/19/16 16:58; Start 08/17/16 at 10:15; Stop at 09:27; Status DC Warfarin Sodium (Coumadin) 5 mg 1X WARF ONCE PO ; Start 08/17/16 at 16:00; Stop 08/17/16 at 16:01; Status DC Heparin Sodium/ Sodium Chloride 1,000 unit 1X ONCE IART Last administered on 11:45; Start 08/18/16 at 11:30; Stop 08/18/16 at 11:31; Status DC Midazolam HCl (Versed) 2 mg 1X ONCE IV Last administered on 08/18/16 11:46; Start 08/18/16 at 11:30; Stop 08/18/16 at 11:31; Status DC Fentanyl Citrate (Fentanyl 2ml Vial) 100 mcg 1X ONCE IV Last administered on 11:47; Start 08/18/16 at 11:30; Stop 08/18/16 at 11:31; Status DC Lidocaine/ Epinephrine 15 ml 15 ml 1X ONCE IJ Last administered on 08/18/16 11 :44; Start 08/18/16 at 11:30; Stop 08/18/16 at 11:31; Status DC Vancomycin HCl 250 ml @ 250 mls/hr 1X ONCE IRR Last administered on 08/18/16 11:45; Start 08/18/16 at 11:30; Stop 08/18/16 at 12:29; Status DC Heparin Sodium (Porcine) (Hep Lock Adult) 500 unit 1X ONCE IV Last administered on 08/18/16 11:46; Start 08/18/16 at 11:30; Stop 08/18/16 at 11:31; Status DC Heparin Sodium (Porcine) (Hep Lock Adult) 500 unit STK-MED ONCE IV ; Start at 09:29; Stop 08/18/16 at 11:42; Status DC Lidocaine/ Epinephrine 20 ml 20 ml STK-MED ONCE .ROUTE ; Start 08/18/16 at 09:29 ; Stop 08/18/16 at 11:42; Status DC Heparin Sodium/ Sodium Chloride 500 ml @ As Directed STK-MED ONCE .ROUTE ; Start 08/18/16 at 09:29; Stop 08/18/16 at 11:42; Status DC Vancomycin HCl 250 ml @ As Directed STK-MED ONCE .ROUTE ; Start 08/18/16 at 09: 29; Stop 08/18/16 at 11:42; Status DC Fentanyl Citrate (Fentanyl 2ml Vial) 100 mcg STK-MED ONCE .ROUTE ; Start at 10:29; Stop 08/18/16 at 11:43; Status DC Midazolam HCl 2 mg 2 mg STK-MED ONCE .ROUTE ; Start 08/18/16 at 10:30; Stop at 11:43; Status DC Iron Sucrose/ Sodium Chloride (Venofer/Iv Sodium Chloride 0.9% 100ml) 110 ml @ 55 mls/hr 3X/WEEK IV Last administered on 08/28/16 09:10; Start 08/19/16 at 09: 00; Stop 08/28/16 at 10:59; Status DC Warfarin Sodium (Coumadin) 5 mg 1X WARF ONCE PO Last administered on 08/18/16 17:56; Start 08/18/16 at 16:00; Stop 08/18/16 at 16:01; Status DC Warfarin Sodium (Coumadin) 3 mg 1X WARF ONCE PO ; Start 08/19/16 at 16:00; Stop 08/19/16 at 16:01; Status Cancel Cefpodoxime Proxetil (Vantin) 100 mg BID PO Last administered on 08/26/16 20: 40; Start 08/19/16 at 21:00; Stop 08/26/16 at 21:01; Status DC Warfarin Sodium (Coumadin) 2.5 mg 1X WARF ONCE PO Last administered on 16:59; Start 08/19/16 at 16:00; Stop 08/19/16 at 16:01; Status DC Senna/Docusate Sodium 1 tab 1 tab PRN BID PRN PO CONSTIPATION Last administered on 08/20/16 14:18; Start 08/19/16 at 13:30; Stop 08/20/16 at 14:43; Status DC Sodium Chloride 250 ml @ 0 mls/hr 1X ONCE IV Last administered on 08/19/16 14: 33; Start 08/19/16 at 13:45; Stop 08/19/16 at 13:53; Status DC Sodium Chloride (Iv Sodium Chloride 0.9% 500ml Bag) 500 ml @ 0 mls/hr 1X ONCE IV Last administered on 08/19/16 16:58; Start 08/19/16 at 16:00; Stop 08/19/16 at 16:01; Status DC Senna/Docusate Sodium (Senna Plus) 1 tab PRN BID PRN PO CONSTIPATION Last administered on 09/03/16 18:07; Start 08/20/16 at 10:00 Bisacodyl (Dulcolax Supp) 10 mg 1X ONCE LA ; Start 08/20/16 at 11:00; Stop at 11:00; Status DC Bisacodyl (Dulcolax Supp) 10 mg 1X ONCE LA Last administered on 08/20/16 16:49 ; Start 08/20/16 at 14:30; Stop 08/20/16 at 14:31; Status DC Warfarin Sodium (Coumadin) 2 mg 1X WARF ONCE PO Last administered on 08/20/16 16:48; Start 08/20/16 at 16:00; Stop 08/20/16 at 16:01; Status DC Mineral Oil (Fleet Mineral Oil) 133 ml 1X ONCE LA ; Start 08/21/16 at 20:00; Stop 08/21/16 at 20:00; Status DC Non-Formulary Medication 1 ea Q4H PO Last administered on 08/21/16 16:18; Start 08/21/16 at 12:00; Stop 08/21/16 at 16:01; Status DC Sodium Bicarbonate 50 meq Q6H IV Last administered on 08/21/16 20:16; Start 08/21/16 at 14:00; Stop 08/21/16 at 20:01; Status DC Warfarin Sodium (Coumadin) 3 mg 1X WARF ONCE PO Last administered on 08/21/16 16:16; Start 08/21/16 at 16:00; Stop 08/21/16 at 16:01; Status DC Warfarin Sodium (Coumadin) 2.5 mg 1X WARF ONCE PO Last administered on 16:00; Start 08/22/16 at 16:00; Stop 08/22/16 at 16:01; Status DC Warfarin Sodium (Coumadin) 3 mg 1X WARF ONCE PO Last administered on 08/23/16 18:28; Start 08/23/16 at 16:00; Stop 08/23/16 at 16:01; Status DC Lidocaine/ Epinephrine (Xylocaine 2%-Epi 1:100,000) 20 ml STK-MED ONCE .ROUTE ; Start 08/24/16 at 10:54; Stop 08/24/16 at 10:55; Status DC Heparin Sodium (Porcine) 16825 unit 10,000 unit STK-MED ONCE .ROUTE ; Start 03/02 at 10:54; Stop 08/24/16 at 10:55; Status DC Heparin Sodium/ Sodium Chloride 500 ml @ As Directed STK-MED ONCE .ROUTE ; Start 08/24/16 at 10:54; Stop 08/24/16 at 10:55; Status DC Darbepoetin Dino (Aranesp) 60 mcg WEEKLYHS SQ Last administered on 08/31/16 21 :27; Start 08/24/16 at 21:00 Fentanyl Citrate (Fentanyl 2ml Vial) 100 mcg STK-MED ONCE .ROUTE ; Start at 11:26; Stop 08/24/16 at 11:27; Status DC Midazolam HCl 2 mg 2 mg STK-MED ONCE .ROUTE ; Start 08/24/16 at 11:26; Stop 03/02 at 11:27; Status DC Cefazolin Sodium (Ancef 1gm Ivpb For Omni) 0 ml @ As Directed STK-MED ONCE IV ; Start 08/24/16 at 11:26; Stop 08/24/16 at 11:27; Status DC Heparin Sodium/ Sodium Chloride 1,000 unit 1X ONCE IART Last administered on 12:23; Start 08/24/16 at 11:45; Stop 08/24/16 at 11:46; Status DC Lidocaine/ Epinephrine (Xylocaine 2%-Epi 1:100,000) 20 ml 1X ONCE IJ Last administered on 08/24/16 12:23; Start 08/24/16 at 11:45; Stop 08/24/16 at 11:46 ; Status DC Fentanyl Citrate (Fentanyl 2ml Vial) 100 mcg STK-MED ONCE .ROUTE ; Start at 11:58; Stop 08/24/16 at 11:59; Status DC Midazolam HCl (Versed) 2 mg STK-MED ONCE .ROUTE ; Start 08/24/16 at 11:58; Stop 08/24/16 at 11:59; Status DC Heparin Sodium (Porcine) (Heparin Sodium) 4,300 unit 1X ONCE IV Last administered on 08/24/16 12:15; Start 08/24/16 at 12:15; Stop 08/24/16 at 12:21 ; Status DC Midazolam HCl (Versed) 2 mg 1X ONCE IV Last administered on 08/24/16 12:30; Start 08/24/16 at 12:30; Stop 08/24/16 at 12:31; Status DC Fentanyl Citrate 100 mcg 100 mcg 1X ONCE IV Last administered on 08/24/16 12: 30; Start 08/24/16 at 12:30; Stop 08/24/16 at 12:31; Status DC Cefazolin Sodium (Ancef 1gm Ivpb For Omni) 50 ml @ 100 mls/hr 1X ONCE IV Last administered on 08/24/16 12:29; Start 08/24/16 at 12:30; Stop 08/24/16 at 12:59; Status DC Warfarin Sodium (Coumadin) 4 mg 1X WARF ONCE PO Last administered on 18:08; Start 08/24/16 at 16:00; Stop 08/24/16 at 16:01; Status DC Mineral Oil (Fleet Mineral Oil) 133 ml PRN DAILY PRN LA CONSTIPATION; Start 03/02 at 19:30 Info (PHARMACY MONITORING -- do not chart) 1 each PRN DAILY PRN MC SEE COMMENTS ; Start 08/25/16 at 12:45; Stop 08/27/16 at 13:18; Status DC Info (PHARMACY MONITORING -- do not chart) 1 each PRN DAILY PRN MC SEE COMMENTS ; Start 08/25/16 at 12:45; Stop 08/27/16 at 13:18; Status DC Warfarin Sodium (Coumadin) 4 mg 1X WARF ONCE PO Last administered on 16:11; Start 08/25/16 at 16:00; Stop 08/25/16 at 16:01; Status DC Tramadol HCl (Ultram) 50 mg PRN TID PRN PO PAIN Last administered on 09/02/16 21:38; Start 08/25/16 at 15:45 Info (PHARMACY MONITORING -- do not chart) 1 each PRN DAILY PRN MC SEE COMMENTS ; Start 08/26/16 at 06:45; Stop 08/27/16 at 13:18; Status DC Warfarin Sodium (Coumadin) 4 mg 1X WARF ONCE PO Last administered on 17:13; Start 08/26/16 at 16:00; Stop 08/26/16 at 16:01; Status DC Info (PHARMACY MONITORING -- do not chart) 1 each PRN DAILY PRN MC SEE COMMENTS ; Start 08/27/16 at 08:00; Status UNV Info (PHARMACY MONITORING -- do not chart) 1 each PRN DAILY PRN MC SEE COMMENTS ; Start 08/27/16 at 08:00; Status Cancel Warfarin Sodium (Coumadin) 4 mg 1X WARF ONCE PO Last administered on 18:32; Start 08/27/16 at 16:00; Stop 08/27/16 at 16:01; Status DC Warfarin Sodium 3 mg 3 mg 1X WARF ONCE PO Last administered on 08/28/16 17:15 ; Start 08/28/16 at 16:00; Stop 08/28/16 at 16:01; Status DC Sodium Chloride (Iv Sodium Chloride 0.9% 1000ml Bag) 1,000 ml @ 1,000 mls/hr Q1H PRN IV hypotension; Start 08/28/16 at 10:42; Stop 08/28/16 at 16:41; Status DC Sodium Chloride (Normal Saline Flush) 10 ml 1X PRN PRN IV AP catheter pack; Start 08/28/16 at 10:45; Stop 08/29/16 at 10:44; Status DC Sodium Chloride (Normal Saline Flush) 10 ml 1X PRN PRN IV BREAKER HAND catheter pack; Start 08/28/16 at 10:45; Stop 08/29/16 at 10:44; Status DC Info (PHARMACY MONITORING -- do not chart) 1 each PRN DAILY PRN MC SEE COMMENTS ; Start 08/28/16 at 10:45; Status UNV Info (PHARMACY MONITORING -- do not chart) 1 each PRN DAILY PRN MC SEE COMMENTS ; Start 08/28/16 at 10:45; Status UNV Warfarin Sodium (Coumadin) 2.5 mg 1X WARF ONCE PO Last administered on 17:00; Start 08/29/16 at 16:00; Stop 08/29/16 at 16:01; Status DC Warfarin Sodium (Coumadin) 2 mg 1X WARF ONCE PO Last administered on 17:58; Start 08/30/16 at 16:00; Stop 08/30/16 at 16:01; Status DC Artificial Tears (Artificial Tears) 1 drop PRN Q15MIN PRN OU DRY EYE Last administered on 08/30/16 21:21; Start 08/30/16 at 18:00 Info (PHARMACY MONITORING -- do not chart) 1 each PRN DAILY PRN MC SEE COMMENTS ; Start 08/31/16 at 08:15 Info (PHARMACY MONITORING -- do not chart) 1 each PRN DAILY PRN MC SEE COMMENTS ; Start 08/31/16 at 08:15; Status UNV Warfarin Sodium (Coumadin - No Dose Today) 1 each 1X WARF ONCE MC ; Start 08/31 at 16:00; Stop 08/31/16 at 16:01; Status DC Warfarin Sodium (Coumadin) 2 mg 1X WARF ONCE PO Last administered on 17:47; Start 09/01/16 at 16:00; Stop 09/01/16 at 16:01; Status DC Zolpidem Tartrate (Ambien) 5 mg PRN QHS PRN PO INSOMNIA, MAY REPEAT IN 1HR Last administered on 09/03/16 20:34; Start 09/01/16 at 21:00 Warfarin Sodium 3 mg 3 mg 1X WARF ONCE PO Last administered on 09/02/16 17:30 ; Start 09/02/16 at 16:00; Stop 09/02/16 at 16:01; Status DC Sodium Chloride (Iv Sodium Chloride 0.9% 1000ml Bag) 1,000 ml @ 1,000 mls/hr Q1H PRN IV hypotension; Start 09/02/16 at 10:45; Stop 09/02/16 at 16:44; Status DC Info (PHARMACY MONITORING -- do not chart) 1 each PRN DAILY PRN MC SEE COMMENTS ; Start 09/02/16 at 10:45; Status UNV Nystatin (Nystop) 1 maria teresa BID TP Last administered on 09/03/16 21:00; Start at 21:00 Furosemide (Lasix) 40 mg [id number] IVP Last administered on 09/03/16 18:07; Start 09/03/16 at 10:30 Alprazolam (Xanax) 0.25 mg PRN Q8HRS PRN PO ANXIETY / AGITATION Last administered on 09/03/16 20:34; Start 09/03/16 at 10:00 Warfarin Sodium (Coumadin) 3 mg 1X WARF ONCE PO Last administered on 18:07; Start 09/03/16 at 16:00; Stop 09/03/16 at 16:01; Status DC Warfarin Sodium 3 mg 3 mg 1X WARF ONCE PO ; Start 09/04/16 at 16:00; Stop 09/04 at 16:01 Sodium Chloride 1,000 ml @ 1,000 mls/hr Q1H PRN IV hypotension; Start 09/04/16 at 10:55; Stop 09/04/16 at 16:54 Albumin Human (Albuminar) 200 ml @ 200 mls/hr 1X PRN PRN IV Hypotension Last administered on 09/04/16 11:08; Start 09/04/16 at 11:00; Stop 09/04/16 at 16:59 Sodium Chloride (Normal Saline Flush) 10 ml 1X PRN PRN IV AP catheter pack; Start 09/04/16 at 11:00; Stop 09/05/16 at 10:59 Sodium Chloride (Normal Saline Flush) 10 ml 1X PRN PRN IV BREAKER HAND catheter pack; Start 09/04/16 at 11:00; Stop 09/05/16 at 10:59 Info (PHARMACY MONITORING -- do not chart) 1 each PRN DAILY PRN MC SEE COMMENTS ; Start 09/04/16 at 11:00 Info (PHARMACY MONITORING -- do not chart) 1 each PRN DAILY PRN MC SEE COMMENTS ; Start 09/04/16 at 11:00 Active Scripts Active Entresto 24 mg-26 mg Tablet (Sacubitril/Valsartan) 1 Each Tablet 1 Tab PO BID Coumadin (Warfarin Sodium) 2.5 Mg Tablet 2.5 Mg PO DAILY16 Reported Reglan (Metoclopramide Hcl) 10 Mg Tablet 5 Mg PO PRN BID PRN Atorvastatin Calcium 40 Mg Tablet 1 Tab PO DAILY Colestid (Colestipol Hcl) 1 Gm Tablet 1 Gm PO TID Pacerone (Amiodarone Hcl) 200 Mg Tablet 200 Mg PO DAILY Lasix (Furosemide) 80 Mg Tablet 1 Tab PO BID Gabapentin 100 Mg Capsule 1 Cap PO TID Aspir 81 (Aspirin) 81 Mg Tablet.dr 1 Tab PO DAILY Coreg (Carvedilol) 6.25 Mg Tablet 1 Tab PO BID K-Tab ER (Potassium Chloride) 20 Meq Tablet.er 20 Meq PO BID Vitals/I & O Vital Sign - Last 24 Hours 09/03/16 09/03/16 09/03/16 09/03/16 15:43 18:07 19:31 19:40 Temp 98.1 98.1 98.1 98.1 Pulse 71 77 72 Resp 16 B/P 106/61 94/61 Pulse Ox 98 95 O2 Delivery Room Air Room Air Room Air 09/03/16 09/04/16 09/04/16 09/04/16 23:00 03:35 07:00 07:45 Temp 98.2 97.8 97.9 98.2 97.8 97.9 Pulse 68 71 68 Resp 16 B/P 108/76 99/63 105/66 Pulse Ox 94 94 93 O2 Delivery Room Air Room Air Room Air Room Air Intake and Output 09/03/16 09/03/16 09/04/16 15:00 23:00 07:00 Intake Total 639 ml 250 ml Output Total 350 ml Balance 289 ml 250 ml HEATHER CHERRY MD Sep 04, 2016 12:29
[2016-09-04] MEDS: CARVEDILOL 6.25 MG TABLET. PO SCH ×2 (12:36→17:00)
[2016-09-04] MEDS: ALPRAZolam 0.25 MG TABLET PO PRN ×2 (12:36→21:13)
[2016-09-04] MEDS: PANTOPRAZOLE 40 MG TABLET.DR. PO SCH (12:36)
[2016-09-04] MEDS: AMIODARONE HCL 200 MG TABLET. PO SCH (12:36)
[2016-09-04] MEDS: NYSTATIN TOPICAL POWDER 15GM BOTTLE. TP SCH ×2 (12:37→21:12)
[2016-09-04] MEDS: ASPIRIN ENTERIC COATED 81 MG TABLET.DR. PO SCH (12:40)
[2016-09-04 15:28] VITALS: BP 86/54
[2016-09-04] MEDS ORDERED: WARFARIN 3 MG TABLET. PO ONE (16:00)
[2016-09-04 16:31] VITALS: BP 94/57
[2016-09-04 19:25] VITALS: BP 101/62
[2016-09-04] MEDS: ZOLPIDEM 5 MG TABLET. PO PRN (21:13)
[2016-09-04] MEDS: ATORVASTATIN CALCIUM 40 MG TABLET. PO SCH (21:13)
[2016-09-04 23:35] VITALS: BP 95/52
[2016-09-05 03:35] VITALS: BP 103/55
[2016-09-05] MEDS: ALPRAZolam 0.25 MG TABLET PO PRN ×2 (04:28→20:54)
[2016-09-05 05:25] LABS: INR 2.1 (0.8-1.1); PROTHROMBIN TIME PATIENT 22.6 SEC (11.7-14.0)
[2016-09-05 07:00] VITALS: BP 102/67
[2016-09-05] MEDS: CARVEDILOL 6.25 MG TABLET. PO SCH ×2 (08:00→17:52)
[2016-09-05] MEDS: INSULIN ASPART 300 UNITS/3 ML INSULN.PEN SQ SCH ×3 (08:00→17:00)
[2016-09-05] MEDS: FUROSEMIDE 40 MG/4 ML VIAL. IVP SCH ×2 (09:00→17:53)
[2016-09-05] MEDS: NYSTATIN TOPICAL POWDER 15GM BOTTLE. TP SCH ×2 (09:00→20:53)
[2016-09-05 09:50] LABS: CALCIUM 7.8 mg/dL (8.5-10.1); CREATININE 1.7 mg/dL (0.7-1.3); POTASSIUM 3.7 mmol/L (3.5-5.1)
--- NOTE | 2016-09-05 11:42 | PDOC ---
Renal-Progress Notes Subjective Notes Notes NONE History of Present Illness Hx of present illness NO CHANGE Vitals Vitals Vital Signs Date Time Temp Pulse Resp B/P Pulse Ox O2 Delivery O2 Flow Rate FiO2 09/05/16 07:00 97.8 70 19 102/67 94 Room Air 97.8 Weight Weight [ ] I.O. Intake and Output Intake and Output 09/05/16 06:59 Intake Total 1319.2 ml Balance 1319.2 ml Intake Oral 1240 ml IV Total 79.2 ml Labs Labs Laboratory Tests Test 09/04/16 12:39 09/04/16 17:19 09/04/16 20:54 09/05/16 04:30 Glucose (Fingerstick) 84mg/dL (70-99) 177mg/dL (70-99) 170mg/dL (70-99) Prothrombin Time 22.6SEC (11.7-14.0) Prothromb Time International Ratio 2.1 (0.8-1.1) Test 09/05/16 09:25 Sodium Level 140mmol/L (136-145) Potassium Level 3.7mmol/L (3.5-5.1) Chloride Level 103mmol/L (98-107) Carbon Dioxide Level 29mmol/L (21-32) Anion Gap 8 (6-14) Blood Urea Nitrogen 24mg/dL (8-26) Creatinine 1.7mg/dL (0.7-1.3) Estimated GFR (Cockcroft-Gault) 48.0 Glucose Level 110mg/dL (70-99) Calcium Level 7.8mg/dL (8.5-10.1) Micro Micro Microbiology 08/15/16 Urine Culture - Final, Complete 08/15/16 Urine Culture Result 1 (JV) - Final, Complete 08/15/16 Urine Culture Result 2 (JV) - Final, Complete 08/15/16 Antimicrobic Susceptibility - Final, Complete Review of Systems Constitutional: yes: alert, oriented, weakness Ears/Nose/Throat: Yes: no symptom reported Eyes: Yes: no symptom reported Pulmonary: Yes no symptom reported Gastrointestional: Yes: no symptom reported Genitourinary: Yes: retention Musculoskeletal: Yes: no symptom reported Skin: Yes no symptom reported Physical Exam General Appearance: no apparent distress Skin: warm Respiratory: bilateral CTA Heart: S1S2, no thrills Abdomen: GT edema Extremities: pulses present, no edema Neurology: alert Assessment Assessment IMP ESRD ANEMIA URINARY RETENTION HYPOTONIC BLADDER S/P TUNNELED HD CATHETER SEVERE CM PLAN CONT RASHI HD TODAY MINIMUM UF GTT ROSSANA GAINES MD Sep 05, 2016 11:42
--- NOTE | 2016-09-05 12:13 | PDOC ---
PROGRESS NOTES Subjective Subjective She had no new complaints now. Objective Objective Vital Signs Date Time Temp Pulse Resp B/P Pulse Ox O2 Delivery O2 Flow Rate FiO2 09/05/16 07:00 97.8 70 19 102/67 94 Room Air 97.8 09/03/16 08:00 2.0 Intake and Output 09/05/16 07:00 Intake Total 1319.2 ml Balance 1319.2 ml Intake Oral 1240 ml IV Total 79.2 ml Physical Exam Physical Exam She had some difficulty with oxygen desaturation while up with physical therapy yesterday and she requires minimal assistance with transfers and walked with roller walker per 30' with physical therapy yesterday. Assessment Assessment Problems Medical Problems: (1) Acute on chronic renal failure Status: Acute Plan Plan of Care She probably needs home health follow up about her oxygen need and for wound care. Comment Review of Relevant I have reviewed the following items marquise (where applicable) has been applied. Labs Laboratory Tests Test 09/03/16 16:43 09/03/16 20:57 09/04/16 07:50 09/04/16 12:39 Glucose (Fingerstick) 138mg/dL (70-99) 120mg/dL (70-99) 104mg/dL (70-99) 84mg/dL (70-99) Test 09/04/16 17:19 09/04/16 20:54 09/05/16 04:30 09/05/16 09:25 Glucose (Fingerstick) 177mg/dL (70-99) 170mg/dL (70-99) Prothrombin Time 22.6SEC (11.7-14.0) Prothromb Time International Ratio 2.1 (0.8-1.1) Sodium Level 140mmol/L (136-145) Potassium Level 3.7mmol/L (3.5-5.1) Chloride Level 103mmol/L (98-107) Carbon Dioxide Level 29mmol/L (21-32) Anion Gap 8 (6-14) Blood Urea Nitrogen 24mg/dL (8-26) Creatinine 1.7mg/dL (0.7-1.3) Estimated GFR (Cockcroft-Gault) 48.0 Glucose Level 110mg/dL (70-99) Calcium Level 7.8mg/dL (8.5-10.1) Laboratory Tests Test 09/04/16 12:39 09/04/16 17:19 09/04/16 20:54 09/05/16 04:30 Glucose (Fingerstick) 84mg/dL (70-99) 177mg/dL (70-99) 170mg/dL (70-99) Prothrombin Time 22.6SEC (11.7-14.0) Prothromb Time International Ratio 2.1 (0.8-1.1) Test 09/05/16 09:25 Sodium Level 140mmol/L (136-145) Potassium Level 3.7mmol/L (3.5-5.1) Chloride Level 103mmol/L (98-107) Carbon Dioxide Level 29mmol/L (21-32) Anion Gap 8 (6-14) Blood Urea Nitrogen 24mg/dL (8-26) Creatinine 1.7mg/dL (0.7-1.3) Estimated GFR (Cockcroft-Gault) 48.0 Glucose Level 110mg/dL (70-99) Calcium Level 7.8mg/dL (8.5-10.1) Microbiology 08/15/16 Urine Culture - Final, Complete 08/15/16 Urine Culture Result 1 (JV) - Final, Complete 08/15/16 Urine Culture Result 2 (JV) - Final, Complete 08/15/16 Antimicrobic Susceptibility - Final, Complete Medications Current Medications Insulin Aspart (Novolog) 0-5 UNITS TIDWMEALS SQ Last administered on 09/04/16 17:40; Start 08/14/16 at 17:30 Dextrose 12.5 gm 12.5 gm PRN Q15MIN PRN IV SEE COMMENTS; Start 08/14/16 at 16: 45 Sodium Chloride (Iv Sodium Chloride 0.9% 1000ml Bag) 1,000 ml @ 100 mls/hr Q10H IV Last administered on 08/14/16 18:53; Start 08/14/16 at 17:30; Stop 08/15/16 at 03:29; Status DC Amiodarone HCl (Cordarone) 200 mg DAILY PO Last administered on 09/04/16 12:36 ; Start 08/15/16 at 09:00 Aspirin (Ecotrin) 81 mg DAILY PO Last administered on 09/04/16 12:40; Start at 09:00 Atorvastatin Calcium (Lipitor) 40 mg QHS PO Last administered on 09/04/16 21: 13; Start 08/14/16 at 21:00 Carvedilol (Coreg) 6.25 mg BIDWMEALS PO Last administered on 09/04/16 12:36; Start 08/14/16 at 17:30 Colestipol HCl (Colestid) 1 gm TID PO Last administered on 08/17/16 20:55; Start 08/14/16 at 21:00; Stop 08/18/16 at 10:08; Status DC Metoclopramide HCl (Reglan) 5 mg PRN BID PRN PO NAUSEA; Start 08/14/16 at 16:45 ; Stop 08/16/16 at 10:25; Status DC Sacubitril/ Valsartan (Entresto 24 Mg-26 Mg) 1 tab BID PO Last administered on 08/17/16 09:14; Start 08/14/16 at 21:00; Stop 08/17/16 at 10:16; Status DC Warfarin Sodium (Coumadin) 2.5 mg DAILY16 PO Last administered on 08/14/16 18: 50; Start 08/14/16 at 18:00; Stop 08/15/16 at 14:13; Status DC Warfarin Sodium (Coumadin Per Physician) 1 each PRN DAILY PRN MC SEE COMMENTS; Start 08/14/16 at 17:15; Stop 08/15/16 at 09:54; Status DC Sodium Polystyrene Sulfonate (Kayexalate) 60 gm 1X ONCE PO Last administered on 08/14/16 18:51; Start 08/14/16 at 18:30; Stop 08/14/16 at 18:31; Status DC Warfarin Sodium (Coumadin Per Pharmacy) 1 each PRN DAILY PRN MC SEE COMMENTS Last administered on 09/05/16 08:17; Start 08/15/16 at 10:00 Pantoprazole Sodium 40 mg 40 mg DAILYAC PO Last administered on 09/04/16 12:36 ; Start 08/15/16 at 11:30 Dobutamine HCl/ Dextrose 250 ml @ 0 mls/hr CONT PRN IV ; Start 08/15/16 at 14:00 ; Stop 08/15/16 at 14:53; Status DC Albumin Human (Albuminar) 100 ml @ 100 mls/hr 1X ONCE IV Last administered on 08/15/16 15:25; Start 08/15/16 at 14:00; Stop 08/15/16 at 14:59; Status DC Furosemide 40 mg 40 mg 1X ONCE IVP Last administered on 08/15/16 16:22; Start 08/15/16 at 15:00; Stop 08/15/16 at 15:01; Status DC Albumin Human (Albuminar) 100 ml @ 100 mls/hr 1X ONCE IV Last administered on 08/16/16 08:41; Start 08/16/16 at 09:00; Stop 08/16/16 at 09:59; Status DC Furosemide (Lasix) 40 mg 1X ONCE IVP Last administered on 08/16/16 09:45; Start 08/16/16 at 10:00; Stop 08/16/16 at 10:01; Status DC Warfarin Sodium 4 mg 4 mg 1X WARF ONCE PO Last administered on 08/15/16 16:33 ; Start 08/15/16 at 16:00; Stop 08/15/16 at 16:01; Status DC Dobutamine HCl/ Dextrose 250 ml @ 0 mls/hr CONT PRN PRN IV SEE I/O RECORD Last administered on 09/05/16 06:10; Start 08/15/16 at 14:53 Sodium Bicarbonate 50 meq 50 meq Q2HR IV Last administered on 08/15/16 18:20; Start 08/15/16 at 16:00; Stop 08/15/16 at 18:30; Status DC Magnesium Sulfate/ Dextrose (Magnesium Sulfate PREMIX 2GM) 50 ml @ 25 mls/hr PRN DAILY PRN IV for Mag < 1.7 on am labs; Start 08/15/16 at 15:30 Warfarin Sodium (Coumadin) 4 mg 1X WARF ONCE PO Last administered on 08/16/16 17:28; Start 08/16/16 at 16:00; Stop 08/16/16 at 16:01; Status DC Ondansetron HCl 4 mg 4 mg PRN Q6HRS PRN IV nausea Last administered on 00:53; Start 08/16/16 at 20:30 Ceftriaxone Sodium 1 gm/ Sodium Chloride 50 ml @ 100 mls/hr Q24H IV Last administered on 08/19/16 10:00; Start 08/17/16 at 10:00; Stop 08/19/16 at 12:56; Status DC Sodium Chloride (Iv Sodium Chloride 0.9% 1000ml Bag) 1,000 ml @ 75 mls/hr [id number] IV Last administered on 08/19/16 16:58; Start 08/17/16 at 10:15; Stop at 09:27; Status DC Warfarin Sodium (Coumadin) 5 mg 1X WARF ONCE PO ; Start 08/17/16 at 16:00; Stop 08/17/16 at 16:01; Status DC Heparin Sodium/ Sodium Chloride 1,000 unit 1X ONCE IART Last administered on 11:45; Start 08/18/16 at 11:30; Stop 08/18/16 at 11:31; Status DC Midazolam HCl (Versed) 2 mg 1X ONCE IV Last administered on 08/18/16 11:46; Start 08/18/16 at 11:30; Stop 08/18/16 at 11:31; Status DC Fentanyl Citrate (Fentanyl 2ml Vial) 100 mcg 1X ONCE IV Last administered on 11:47; Start 08/18/16 at 11:30; Stop 08/18/16 at 11:31; Status DC Lidocaine/ Epinephrine 15 ml 15 ml 1X ONCE IJ Last administered on 08/18/16 11 :44; Start 08/18/16 at 11:30; Stop 08/18/16 at 11:31; Status DC Vancomycin HCl 250 ml @ 250 mls/hr 1X ONCE IRR Last administered on 08/18/16 11:45; Start 08/18/16 at 11:30; Stop 08/18/16 at 12:29; Status DC Heparin Sodium (Porcine) (Hep Lock Adult) 500 unit 1X ONCE IV Last administered on 08/18/16 11:46; Start 08/18/16 at 11:30; Stop 08/18/16 at 11:31; Status DC Heparin Sodium (Porcine) (Hep Lock Adult) 500 unit STK-MED ONCE IV ; Start at 09:29; Stop 08/18/16 at 11:42; Status DC Lidocaine/ Epinephrine 20 ml 20 ml STK-MED ONCE .ROUTE ; Start 08/18/16 at 09:29 ; Stop 08/18/16 at 11:42; Status DC Heparin Sodium/ Sodium Chloride 500 ml @ As Directed STK-MED ONCE .ROUTE ; Start 08/18/16 at 09:29; Stop 08/18/16 at 11:42; Status DC Vancomycin HCl 250 ml @ As Directed STK-MED ONCE .ROUTE ; Start 08/18/16 at 09: 29; Stop 08/18/16 at 11:42; Status DC Fentanyl Citrate (Fentanyl 2ml Vial) 100 mcg STK-MED ONCE .ROUTE ; Start at 10:29; Stop 08/18/16 at 11:43; Status DC Midazolam HCl 2 mg 2 mg STK-MED ONCE .ROUTE ; Start 08/18/16 at 10:30; Stop at 11:43; Status DC Iron Sucrose/ Sodium Chloride (Venofer/Iv Sodium Chloride 0.9% 100ml) 110 ml @ 55 mls/hr 3X/WEEK IV Last administered on 08/28/16 09:10; Start 08/19/16 at 09: 00; Stop 08/28/16 at 10:59; Status DC Warfarin Sodium (Coumadin) 5 mg 1X WARF ONCE PO Last administered on 08/18/16 17:56; Start 08/18/16 at 16:00; Stop 08/18/16 at 16:01; Status DC Warfarin Sodium (Coumadin) 3 mg 1X WARF ONCE PO ; Start 08/19/16 at 16:00; Stop 08/19/16 at 16:01; Status Cancel Cefpodoxime Proxetil (Vantin) 100 mg BID PO Last administered on 08/26/16 20: 40; Start 08/19/16 at 21:00; Stop 08/26/16 at 21:01; Status DC Warfarin Sodium (Coumadin) 2.5 mg 1X WARF ONCE PO Last administered on 16:59; Start 08/19/16 at 16:00; Stop 08/19/16 at 16:01; Status DC Senna/Docusate Sodium 1 tab 1 tab PRN BID PRN PO CONSTIPATION Last administered on 08/20/16 14:18; Start 08/19/16 at 13:30; Stop 08/20/16 at 14:43; Status DC Sodium Chloride 250 ml @ 0 mls/hr 1X ONCE IV Last administered on 08/19/16 14: 33; Start 08/19/16 at 13:45; Stop 08/19/16 at 13:53; Status DC Sodium Chloride (Iv Sodium Chloride 0.9% 500ml Bag) 500 ml @ 0 mls/hr 1X ONCE IV Last administered on 08/19/16 16:58; Start 08/19/16 at 16:00; Stop 08/19/16 at 16:01; Status DC Senna/Docusate Sodium (Senna Plus) 1 tab PRN BID PRN PO CONSTIPATION Last administered on 09/03/16 18:07; Start 08/20/16 at 10:00 Bisacodyl (Dulcolax Supp) 10 mg 1X ONCE HI ; Start 08/20/16 at 11:00; Stop at 11:00; Status DC Bisacodyl (Dulcolax Supp) 10 mg 1X ONCE HI Last administered on 08/20/16 16:49 ; Start 08/20/16 at 14:30; Stop 08/20/16 at 14:31; Status DC Warfarin Sodium (Coumadin) 2 mg 1X WARF ONCE PO Last administered on 08/20/16 16:48; Start 08/20/16 at 16:00; Stop 08/20/16 at 16:01; Status DC Mineral Oil (Fleet Mineral Oil) 133 ml 1X ONCE HI ; Start 08/21/16 at 20:00; Stop 08/21/16 at 20:00; Status DC Non-Formulary Medication 1 ea Q4H PO Last administered on 08/21/16 16:18; Start 08/21/16 at 12:00; Stop 08/21/16 at 16:01; Status DC Sodium Bicarbonate 50 meq Q6H IV Last administered on 08/21/16 20:16; Start 08/21/16 at 14:00; Stop 08/21/16 at 20:01; Status DC Warfarin Sodium (Coumadin) 3 mg 1X WARF ONCE PO Last administered on 08/21/16 16:16; Start 08/21/16 at 16:00; Stop 08/21/16 at 16:01; Status DC Warfarin Sodium (Coumadin) 2.5 mg 1X WARF ONCE PO Last administered on 16:00; Start 08/22/16 at 16:00; Stop 08/22/16 at 16:01; Status DC Warfarin Sodium (Coumadin) 3 mg 1X WARF ONCE PO Last administered on 08/23/16 18:28; Start 08/23/16 at 16:00; Stop 08/23/16 at 16:01; Status DC Lidocaine/ Epinephrine (Xylocaine 2%-Epi 1:100,000) 20 ml STK-MED ONCE .ROUTE ; Start 08/24/16 at 10:54; Stop 08/24/16 at 10:55; Status DC Heparin Sodium (Porcine) 56711 unit 10,000 unit STK-MED ONCE .ROUTE ; Start 03/02 at 10:54; Stop 08/24/16 at 10:55; Status DC Heparin Sodium/ Sodium Chloride 500 ml @ As Directed STK-MED ONCE .ROUTE ; Start 08/24/16 at 10:54; Stop 08/24/16 at 10:55; Status DC Darbepoetin Dino (Aranesp) 60 mcg [id number] SQ Last administered on 08/31/16 21 :27; Start 08/24/16 at 21:00 Fentanyl Citrate (Fentanyl 2ml Vial) 100 mcg STK-MED ONCE .ROUTE ; Start at 11:26; Stop 08/24/16 at 11:27; Status DC Midazolam HCl 2 mg 2 mg STK-MED ONCE .ROUTE ; Start 08/24/16 at 11:26; Stop 03/02 at 11:27; Status DC Cefazolin Sodium (Ancef 1gm Ivpb For Omni) 0 ml @ As Directed STK-MED ONCE IV ; Start 08/24/16 at 11:26; Stop 08/24/16 at 11:27; Status DC Heparin Sodium/ Sodium Chloride 1,000 unit 1X ONCE IART Last administered on 12:23; Start 08/24/16 at 11:45; Stop 08/24/16 at 11:46; Status DC Lidocaine/ Epinephrine (Xylocaine 2%-Epi 1:100,000) 20 ml 1X ONCE IJ Last administered on 08/24/16 12:23; Start 08/24/16 at 11:45; Stop 08/24/16 at 11:46 ; Status DC Fentanyl Citrate (Fentanyl 2ml Vial) 100 mcg STK-MED ONCE .ROUTE ; Start at 11:58; Stop 08/24/16 at 11:59; Status DC Midazolam HCl (Versed) 2 mg STK-MED ONCE .ROUTE ; Start 08/24/16 at 11:58; Stop 08/24/16 at 11:59; Status DC Heparin Sodium (Porcine) (Heparin Sodium) 4,300 unit 1X ONCE IV Last administered on 08/24/16 12:15; Start 08/24/16 at 12:15; Stop 08/24/16 at 12:21 ; Status DC Midazolam HCl (Versed) 2 mg 1X ONCE IV Last administered on 08/24/16 12:30; Start 08/24/16 at 12:30; Stop 08/24/16 at 12:31; Status DC Fentanyl Citrate 100 mcg 100 mcg 1X ONCE IV Last administered on 08/24/16 12: 30; Start 08/24/16 at 12:30; Stop 08/24/16 at 12:31; Status DC Cefazolin Sodium (Ancef 1gm Ivpb For Omni) 50 ml @ 100 mls/hr 1X ONCE IV Last administered on 08/24/16 12:29; Start 08/24/16 at 12:30; Stop 08/24/16 at 12:59; Status DC Warfarin Sodium (Coumadin) 4 mg 1X WARF ONCE PO Last administered on 18:08; Start 08/24/16 at 16:00; Stop 08/24/16 at 16:01; Status DC Mineral Oil (Fleet Mineral Oil) 133 ml PRN DAILY PRN HI CONSTIPATION; Start 03/02 at 19:30 Info (PHARMACY MONITORING -- do not chart) 1 each PRN DAILY PRN MC SEE COMMENTS ; Start 08/25/16 at 12:45; Stop 08/27/16 at 13:18; Status DC Info (PHARMACY MONITORING -- do not chart) 1 each PRN DAILY PRN MC SEE COMMENTS ; Start 08/25/16 at 12:45; Stop 08/27/16 at 13:18; Status DC Warfarin Sodium (Coumadin) 4 mg 1X WARF ONCE PO Last administered on 16:11; Start 08/25/16 at 16:00; Stop 08/25/16 at 16:01; Status DC Tramadol HCl (Ultram) 50 mg PRN TID PRN PO PAIN Last administered on 09/02/16 21:38; Start 08/25/16 at 15:45 Info (PHARMACY MONITORING -- do not chart) 1 each PRN DAILY PRN MC SEE COMMENTS ; Start 08/26/16 at 06:45; Stop 08/27/16 at 13:18; Status DC Warfarin Sodium (Coumadin) 4 mg 1X WARF ONCE PO Last administered on 17:13; Start 08/26/16 at 16:00; Stop 08/26/16 at 16:01; Status DC Info (PHARMACY MONITORING -- do not chart) 1 each PRN DAILY PRN MC SEE COMMENTS ; Start 08/27/16 at 08:00; Status UNV Info (PHARMACY MONITORING -- do not chart) 1 each PRN DAILY PRN MC SEE COMMENTS ; Start 08/27/16 at 08:00; Status Cancel Warfarin Sodium (Coumadin) 4 mg 1X WARF ONCE PO Last administered on 18:32; Start 08/27/16 at 16:00; Stop 08/27/16 at 16:01; Status DC Warfarin Sodium 3 mg 3 mg 1X WARF ONCE PO Last administered on 08/28/16 17:15 ; Start 08/28/16 at 16:00; Stop 08/28/16 at 16:01; Status DC Sodium Chloride (Iv Sodium Chloride 0.9% 1000ml Bag) 1,000 ml @ 1,000 mls/hr Q1H PRN IV hypotension; Start 08/28/16 at 10:42; Stop 08/28/16 at 16:41; Status DC Sodium Chloride (Normal Saline Flush) 10 ml 1X PRN PRN IV AP catheter pack; Start 08/28/16 at 10:45; Stop 08/29/16 at 10:44; Status DC Sodium Chloride (Normal Saline Flush) 10 ml 1X PRN PRN IV TRANSPORTATION DEPARTMENT SUPERVISOR catheter pack; Start 08/28/16 at 10:45; Stop 08/29/16 at 10:44; Status DC Info (PHARMACY MONITORING -- do not chart) 1 each PRN DAILY PRN MC SEE COMMENTS ; Start 08/28/16 at 10:45; Status UNV Info (PHARMACY MONITORING -- do not chart) 1 each PRN DAILY PRN MC SEE COMMENTS ; Start 08/28/16 at 10:45; Status UNV Warfarin Sodium (Coumadin) 2.5 mg 1X WARF ONCE PO Last administered on 17:00; Start 08/29/16 at 16:00; Stop 08/29/16 at 16:01; Status DC Warfarin Sodium (Coumadin) 2 mg 1X WARF ONCE PO Last administered on 17:58; Start 08/30/16 at 16:00; Stop 08/30/16 at 16:01; Status DC Artificial Tears (Artificial Tears) 1 drop PRN Q15MIN PRN OU DRY EYE Last administered on 08/30/16 21:21; Start 08/30/16 at 18:00 Info (PHARMACY MONITORING -- do not chart) 1 each PRN DAILY PRN MC SEE COMMENTS ; Start 08/31/16 at 08:15; Stop 09/05/16 at 08:14; Status DC Info (PHARMACY MONITORING -- do not chart) 1 each PRN DAILY PRN MC SEE COMMENTS ; Start 08/31/16 at 08:15; Status UNV Warfarin Sodium (Coumadin - No Dose Today) 1 each 1X WARF ONCE MC ; Start 08/31 at 16:00; Stop 08/31/16 at 16:01; Status DC Warfarin Sodium (Coumadin) 2 mg 1X WARF ONCE PO Last administered on 17:47; Start 09/01/16 at 16:00; Stop 09/01/16 at 16:01; Status DC Zolpidem Tartrate (Ambien) 5 mg PRN QHS PRN PO INSOMNIA, MAY REPEAT IN 1HR Last administered on 09/04/16 21:13; Start 09/01/16 at 21:00 Warfarin Sodium 3 mg 3 mg 1X WARF ONCE PO Last administered on 09/02/16 17:30 ; Start 09/02/16 at 16:00; Stop 09/02/16 at 16:01; Status DC Sodium Chloride (Iv Sodium Chloride 0.9% 1000ml Bag) 1,000 ml @ 1,000 mls/hr Q1H PRN IV hypotension; Start 09/02/16 at 10:45; Stop 09/02/16 at 16:44; Status DC Info (PHARMACY MONITORING -- do not chart) 1 each PRN DAILY PRN MC SEE COMMENTS ; Start 09/02/16 at 10:45; Status UNV Nystatin (Nystop) 1 maria teresa BID TP Last administered on 09/04/16 21:12; Start at 21:00 Furosemide (Lasix) 40 mg [id number] IVP Last administered on 09/03/16 18:07; Start 09/03/16 at 10:30 Alprazolam (Xanax) 0.25 mg PRN Q8HRS PRN PO ANXIETY / AGITATION Last administered on 09/05/16 04:28; Start 09/03/16 at 10:00 Warfarin Sodium (Coumadin) 3 mg 1X WARF ONCE PO Last administered on 18:07; Start 09/03/16 at 16:00; Stop 09/03/16 at 16:01; Status DC Warfarin Sodium 3 mg 3 mg 1X WARF ONCE PO Last administered on 09/04/16 16:28 ; Start 09/04/16 at 16:00; Stop 09/04/16 at 16:01; Status DC Sodium Chloride 1,000 ml @ 1,000 mls/hr Q1H PRN IV hypotension; Start 09/04/16 at 10:55; Stop 09/04/16 at 16:54; Status DC Albumin Human (Albuminar) 200 ml @ 200 mls/hr 1X PRN PRN IV Hypotension Last administered on 09/04/16 11:08; Start 09/04/16 at 11:00; Stop 09/04/16 at 16:59 ; Status DC Sodium Chloride (Normal Saline Flush) 10 ml 1X PRN PRN IV AP catheter pack; Start 09/04/16 at 11:00; Stop 09/05/16 at 10:59; Status DC Sodium Chloride (Normal Saline Flush) 10 ml 1X PRN PRN IV TRANSPORTATION DEPARTMENT SUPERVISOR catheter pack; Start 09/04/16 at 11:00; Stop 09/05/16 at 10:59; Status DC Info (PHARMACY MONITORING -- do not chart) 1 each PRN DAILY PRN MC SEE COMMENTS ; Start 09/04/16 at 11:00; Stop 09/05/16 at 08:14; Status DC Info (PHARMACY MONITORING -- do not chart) 1 each PRN DAILY PRN MC SEE COMMENTS ; Start 09/04/16 at 11:00 Warfarin Sodium (Coumadin) 4 mg 1X WARF ONCE PO ; Start 09/05/16 at 16:00; Stop 09/05/16 at 16:01 Active Scripts Active Entresto 24 mg-26 mg Tablet (Sacubitril/Valsartan) 1 Each Tablet 1 Tab PO BID Coumadin (Warfarin Sodium) 2.5 Mg Tablet 2.5 Mg PO DAILY16 Reported Reglan (Metoclopramide Hcl) 10 Mg Tablet 5 Mg PO PRN BID PRN Atorvastatin Calcium 40 Mg Tablet 1 Tab PO DAILY Colestid (Colestipol Hcl) 1 Gm Tablet 1 Gm PO TID Pacerone (Amiodarone Hcl) 200 Mg Tablet 200 Mg PO DAILY Lasix (Furosemide) 80 Mg Tablet 1 Tab PO BID Gabapentin 100 Mg Capsule 1 Cap PO TID Aspir 81 (Aspirin) 81 Mg Tablet. 1 Tab PO DAILY Coreg (Carvedilol) 6.25 Mg Tablet 1 Tab PO BID K-Tab ER (Potassium Chloride) 20 Meq Tablet.er 20 Meq PO BID Vitals/I & O Vital Sign - Last 24 Hours 09/04/16 09/04/16 09/04/16 09/04/16 12:36 12:36 15:28 16:31 Temp 97.6 97.6 Pulse 80 78 70 69 Resp 19 B/P 86/54 94/57 Pulse Ox 95 O2 Delivery Room Air 09/04/16 09/04/16 09/04/16 09/05/16 19:25 19:43 23:35 03:35 Temp 97.4 98.7 98.4 97.4 98.7 98.4 Pulse 71 71 70 Resp 16 16 16 B/P 101/62 95/52 103/55 Pulse Ox 96 97 97 O2 Delivery Room Air Room Air Room Air Room Air 09/05/16 07:00 Temp 97.8 97.8 Pulse 70 Resp 19 B/P 102/67 Pulse Ox 94 O2 Delivery Room Air Intake and Output 09/04/16 09/04/16 09/05/16 15:00 23:00 07:00 Intake Total 920 ml 399.2 ml Balance 920 ml 399.2 ml MADDIE AMBROSE MD Sep 05, 2016 12:13
[2016-09-05 15:00] VITALS: BP 106/63
--- NOTE | 2016-09-05 15:25 | PDOC ---
PROGRESS NOTES Subjective Subjective feeling better,anxious to go to [facility] tomorrow Objective Objective Vital Signs Date Time Temp Pulse Resp B/P Pulse Ox O2 Delivery O2 Flow Rate FiO2 09/05/16 07:00 97.8 70 19 102/67 94 Room Air 97.8 Intake and Output 09/05/16 07:00 Intake Total 1319.2 ml Balance 1319.2 ml Intake Oral 1240 ml IV Total 79.2 ml Physical Exam Abdomen: Normal bowel sounds, Soft, No tenderness Heart: Regular rate, Normal S1, Normal S2, Other (1-2/6 systolic murmur) Extremities: No clubbing, No cyanosis General: Alert, Oriented X3, Cooperative, No acute distress HEENT: Atraumatic, PERRLA Lungs: Clear to auscultation MUSCULOSKELETAL: No joint tenderness, No deformity, No muscular tenderness noted Neck: Supple Neuro: Normal speech Psych/Mental Status: Mood NL Skin: No rashes, No significant lesion Diagnosis Problem List Problems Medical Problems: (1) Acute on chronic renal failure Status: Acute Assessment Assessment New ESRD on dialysis,started on dialysis last week * urinary retention improved. ac on crf. possible ATN 1. ARF with CKD II ATN SONA on HD 2. a/c systolic CHF ICM EF 10% AICD 3. HTN 4. DM II with CKD II diet control 5. hyperlipidemia 6. mild to mod MR 7. moderate pulmonary HTN 8. severe weakness and debility 9. metabolic encephalopathy POA 10. moderate chronic PCL malnutrition 11.PVD PLAN: spoke with cardiology. d/c home to her daughters place tomorrow am d/c iv lasix for leg swelling and chf improved . dialysis today . spoke with social work today waiting for dialysis slot to be opened ,close to her daughters place in [place], [place]. plans to move wednesday Improving slowly. INR2.1 Adjust Coumadin. dobutamine infusions 3 times a week Problems: Plan Plan of Care Problems Medical Problems: (1) Acute on chronic renal failure Status: Acute Comment Review of Relevant I have reviewed the following items marquise (where applicable) has been applied. Labs Laboratory Tests Test 09/04/16 17:19 09/04/16 20:54 09/05/16 04:30 09/05/16 08:19 Glucose (Fingerstick) 177mg/dL (70-99) 170mg/dL (70-99) 109mg/dL (70-99) Prothrombin Time 22.6SEC (11.7-14.0) Prothromb Time International Ratio 2.1 (0.8-1.1) Test 09/05/16 09:25 09/05/16 12:42 Sodium Level 140mmol/L (136-145) Potassium Level 3.7mmol/L (3.5-5.1) Chloride Level 103mmol/L (98-107) Carbon Dioxide Level 29mmol/L (21-32) Anion Gap 8 (6-14) Blood Urea Nitrogen 24mg/dL (8-26) Creatinine 1.7mg/dL (0.7-1.3) Estimated GFR (Cockcroft-Gault) 48.0 Glucose Level 110mg/dL (70-99) Calcium Level 7.8mg/dL (8.5-10.1) Glucose (Fingerstick) 95mg/dL (70-99) Microbiology 08/15/16 Urine Culture - Final, Complete 08/15/16 Urine Culture Result 1 (JV) - Final, Complete 08/15/16 Urine Culture Result 2 (JV) - Final, Complete 08/15/16 Antimicrobic Susceptibility - Final, Complete Medications Current Medications Warfarin Sodium (Coumadin) 3 mg 1X WARF ONCE PO Last administered on t 16:28; Start 09/04/16 at 16:00; Stop 09/04/16 at 16:01; Status DC Warfarin Sodium (Coumadin) 4 mg 1X WARF ONCE PO ; Start 09/05/16 at 16:00; Stop 09/05/16 at 16:01 Vitals/I & O Vital Sign - Last 24 Hours 09/04/16 09/04/16 09/04/16 09/04/16 15:28 16:31 19:25 19:43 Temp 97.6 97.4 97.6 97.4 Pulse 70 69 71 Resp 19 16 B/P 86/54 94/57 101/62 Pulse Ox 95 96 O2 Delivery Room Air Room Air Room Air 09/04/16 09/05/16 09/05/16 23:35 03:35 07:00 Temp 98.7 98.4 97.8 98.7 98.4 97.8 Pulse 71 70 70 Resp 16 16 19 B/P 95/52 103/55 102/67 Pulse Ox 97 97 94 O2 Delivery Room Air Room Air Room Air Intake and Output 09/04/16 09/04/16 09/05/16 15:00 23:00 07:00 Intake Total 920 ml 399.2 ml Balance 920 ml 399.2 ml AFSHAN SLADE MD Sep 05, 2016 15:25
--- NOTE | 2016-09-05 15:48 | PDOC ---
PROGRESS NOTES Subjective Subjective No new complaints today. She continues on the dobutamine drip. Objective Objective Vital Signs Date Time Temp Pulse Resp B/P Pulse Ox O2 Delivery O2 Flow Rate FiO2 09/05/16 07:00 97.8 70 19 102/67 94 Room Air 97.8 09/03/16 08:00 2.0 Intake and Output 09/05/16 07:00 Intake Total 1319.2 ml Balance 1319.2 ml Intake Oral 1240 ml IV Total 79.2 ml Physical Exam Physical Exam No significant changes in cardiac exam Assessment Assessment Patient compensated bronson echo-levi. I guess things are set up for her to be discharged tomorrow and then to go to [place] where she is going to follow-up with the cable splicer assistant as well as a occupational health coordinator. I discussed all of these things with the patient and her family. Home in a.m. Problems Medical Problems: (1) Acute on chronic renal failure Status: Acute Comment Review of Relevant I have reviewed the following items marquise (where applicable) has been applied. Labs Laboratory Tests Test 09/03/16 16:43 09/03/16 20:57 09/04/16 07:50 09/04/16 12:39 Glucose (Fingerstick) 138mg/dL (70-99) 120mg/dL (70-99) 104mg/dL (70-99) 84mg/dL (70-99) Test 09/04/16 17:19 09/04/16 20:54 09/05/16 04:30 09/05/16 08:19 Glucose (Fingerstick) 177mg/dL (70-99) 170mg/dL (70-99) 109mg/dL (70-99) Prothrombin Time 22.6SEC (11.7-14.0) Prothromb Time International Ratio 2.1 (0.8-1.1) Test 09/05/16 09:25 09/05/16 12:42 Sodium Level 140mmol/L (136-145) Potassium Level 3.7mmol/L (3.5-5.1) Chloride Level 103mmol/L (98-107) Carbon Dioxide Level 29mmol/L (21-32) Anion Gap 8 (6-14) Blood Urea Nitrogen 24mg/dL (8-26) Creatinine 1.7mg/dL (0.7-1.3) Estimated GFR (Cockcroft-Gault) 48.0 Glucose Level 110mg/dL (70-99) Calcium Level 7.8mg/dL (8.5-10.1) Glucose (Fingerstick) 95mg/dL (70-99) Laboratory Tests Test 09/04/16 17:19 09/04/16 20:54 09/05/16 04:30 09/05/16 08:19 Glucose (Fingerstick) 177mg/dL (70-99) 170mg/dL (70-99) 109mg/dL (70-99) Prothrombin Time 22.6SEC (11.7-14.0) Prothromb Time International Ratio 2.1 (0.8-1.1) Test 09/05/16 09:25 09/05/16 12:42 Sodium Level 140mmol/L (136-145) Potassium Level 3.7mmol/L (3.5-5.1) Chloride Level 103mmol/L (98-107) Carbon Dioxide Level 29mmol/L (21-32) Anion Gap 8 (6-14) Blood Urea Nitrogen 24mg/dL (8-26) Creatinine 1.7mg/dL (0.7-1.3) Estimated GFR (Cockcroft-Gault) 48.0 Glucose Level 110mg/dL (70-99) Calcium Level 7.8mg/dL (8.5-10.1) Glucose (Fingerstick) 95mg/dL (70-99) Microbiology 08/15/16 Urine Culture - Final, Complete 08/15/16 Urine Culture Result 1 (JV) - Final, Complete 08/15/16 Urine Culture Result 2 (JV) - Final, Complete 08/15/16 Antimicrobic Susceptibility - Final, Complete Medications Current Medications Insulin Aspart (Novolog) 0-5 UNITS TIDWMEALS SQ Last administered on 09/04/16 17:40; Start 08/14/16 at 17:30 Dextrose 12.5 gm 12.5 gm PRN Q15MIN PRN IV SEE COMMENTS; Start 08/14/16 at 16: 45 Sodium Chloride (Iv Sodium Chloride 0.9% 1000ml Bag) 1,000 ml @ 100 mls/hr Q10H IV Last administered on 08/14/16 18:53; Start 08/14/16 at 17:30; Stop 08/15/16 at 03:29; Status DC Amiodarone HCl (Cordarone) 200 mg DAILY PO Last administered on 09/04/16 12:36 ; Start 08/15/16 at 09:00 Aspirin (Ecotrin) 81 mg DAILY PO Last administered on 09/04/16 12:40; Start at 09:00 Atorvastatin Calcium (Lipitor) 40 mg QHS PO Last administered on 09/04/16 21: 13; Start 08/14/16 at 21:00 Carvedilol (Coreg) 6.25 mg BIDWMEALS PO Last administered on 09/04/16 12:36; Start 08/14/16 at 17:30 Colestipol HCl (Colestid) 1 gm TID PO Last administered on 08/17/16 20:55; Start 08/14/16 at 21:00; Stop 08/18/16 at 10:08; Status DC Metoclopramide HCl (Reglan) 5 mg PRN BID PRN PO NAUSEA; Start 08/14/16 at 16:45 ; Stop 08/16/16 at 10:25; Status DC Sacubitril/ Valsartan (Entresto 24 Mg-26 Mg) 1 tab BID PO Last administered on 08/17/16 09:14; Start 08/14/16 at 21:00; Stop 08/17/16 at 10:16; Status DC Warfarin Sodium (Coumadin) 2.5 mg DAILY16 PO Last administered on 08/14/16 18: 50; Start 08/14/16 at 18:00; Stop 08/15/16 at 14:13; Status DC Warfarin Sodium (Coumadin Per Physician) 1 each PRN DAILY PRN MC SEE COMMENTS; Start 08/14/16 at 17:15; Stop 08/15/16 at 09:54; Status DC Sodium Polystyrene Sulfonate (Kayexalate) 60 gm 1X ONCE PO Last administered on 08/14/16 18:51; Start 08/14/16 at 18:30; Stop 08/14/16 at 18:31; Status DC Warfarin Sodium (Coumadin Per Pharmacy) 1 each PRN DAILY PRN MC SEE COMMENTS Last administered on 09/05/16 08:17; Start 08/15/16 at 10:00 Pantoprazole Sodium 40 mg 40 mg DAILYAC PO Last administered on 09/04/16 12:36 ; Start 08/15/16 at 11:30 Dobutamine HCl/ Dextrose 250 ml @ 0 mls/hr CONT PRN IV ; Start 08/15/16 at 14:00 ; Stop 08/15/16 at 14:53; Status DC Albumin Human (Albuminar) 100 ml @ 100 mls/hr 1X ONCE IV Last administered on 08/15/16 15:25; Start 08/15/16 at 14:00; Stop 08/15/16 at 14:59; Status DC Furosemide 40 mg 40 mg 1X ONCE IVP Last administered on 08/15/16 16:22; Start 08/15/16 at 15:00; Stop 08/15/16 at 15:01; Status DC Albumin Human (Albuminar) 100 ml @ 100 mls/hr 1X ONCE IV Last administered on 08/16/16 08:41; Start 08/16/16 at 09:00; Stop 08/16/16 at 09:59; Status DC Furosemide (Lasix) 40 mg 1X ONCE IVP Last administered on 08/16/16 09:45; Start 08/16/16 at 10:00; Stop 08/16/16 at 10:01; Status DC Warfarin Sodium 4 mg 4 mg 1X WARF ONCE PO Last administered on 08/15/16 16:33 ; Start 08/15/16 at 16:00; Stop 08/15/16 at 16:01; Status DC Dobutamine HCl/ Dextrose 250 ml @ 0 mls/hr CONT PRN PRN IV SEE I/O RECORD Last administered on 09/05/16 06:10; Start 08/15/16 at 14:53 Sodium Bicarbonate 50 meq 50 meq Q2HR IV Last administered on 08/15/16 18:20; Start 08/15/16 at 16:00; Stop 08/15/16 at 18:30; Status DC Magnesium Sulfate/ Dextrose (Magnesium Sulfate PREMIX 2GM) 50 ml @ 25 mls/hr PRN DAILY PRN IV for Mag < 1.7 on am labs; Start 08/15/16 at 15:30 Warfarin Sodium (Coumadin) 4 mg 1X WARF ONCE PO Last administered on 08/16/16 17:28; Start 08/16/16 at 16:00; Stop 08/16/16 at 16:01; Status DC Ondansetron HCl 4 mg 4 mg PRN Q6HRS PRN IV nausea Last administered on 00:53; Start 08/16/16 at 20:30 Ceftriaxone Sodium 1 gm/ Sodium Chloride 50 ml @ 100 mls/hr Q24H IV Last administered on 08/19/16 10:00; Start 08/17/16 at 10:00; Stop 08/19/16 at 12:56; Status DC Sodium Chloride (Iv Sodium Chloride 0.9% 1000ml Bag) 1,000 ml @ 75 mls/hr [id number] IV Last administered on 08/19/16 16:58; Start 08/17/16 at 10:15; Stop at 09:27; Status DC Warfarin Sodium (Coumadin) 5 mg 1X WARF ONCE PO ; Start 08/17/16 at 16:00; Stop 08/17/16 at 16:01; Status DC Heparin Sodium/ Sodium Chloride 1,000 unit 1X ONCE IART Last administered on 11:45; Start 08/18/16 at 11:30; Stop 08/18/16 at 11:31; Status DC Midazolam HCl (Versed) 2 mg 1X ONCE IV Last administered on 08/18/16 11:46; Start 08/18/16 at 11:30; Stop 08/18/16 at 11:31; Status DC Fentanyl Citrate (Fentanyl 2ml Vial) 100 mcg 1X ONCE IV Last administered on 11:47; Start 08/18/16 at 11:30; Stop 08/18/16 at 11:31; Status DC Lidocaine/ Epinephrine 15 ml 15 ml 1X ONCE IJ Last administered on 08/18/16 11 :44; Start 08/18/16 at 11:30; Stop 08/18/16 at 11:31; Status DC Vancomycin HCl 250 ml @ 250 mls/hr 1X ONCE IRR Last administered on 08/18/16 11:45; Start 08/18/16 at 11:30; Stop 08/18/16 at 12:29; Status DC Heparin Sodium (Porcine) (Hep Lock Adult) 500 unit 1X ONCE IV Last administered on 08/18/16 11:46; Start 08/18/16 at 11:30; Stop 08/18/16 at 11:31; Status DC Heparin Sodium (Porcine) (Hep Lock Adult) 500 unit STK-MED ONCE IV ; Start at 09:29; Stop 08/18/16 at 11:42; Status DC Lidocaine/ Epinephrine 20 ml 20 ml STK-MED ONCE .ROUTE ; Start 08/18/16 at 09:29 ; Stop 08/18/16 at 11:42; Status DC Heparin Sodium/ Sodium Chloride 500 ml @ As Directed STK-MED ONCE .ROUTE ; Start 08/18/16 at 09:29; Stop 08/18/16 at 11:42; Status DC Vancomycin HCl 250 ml @ As Directed STK-MED ONCE .ROUTE ; Start 08/18/16 at 09: 29; Stop 08/18/16 at 11:42; Status DC Fentanyl Citrate (Fentanyl 2ml Vial) 100 mcg STK-MED ONCE .ROUTE ; Start at 10:29; Stop 08/18/16 at 11:43; Status DC Midazolam HCl 2 mg 2 mg STK-MED ONCE .ROUTE ; Start 08/18/16 at 10:30; Stop at 11:43; Status DC Iron Sucrose/ Sodium Chloride (Venofer/Iv Sodium Chloride 0.9% 100ml) 110 ml @ 55 mls/hr 3X/WEEK IV Last administered on 08/28/16 09:10; Start 08/19/16 at 09: 00; Stop 08/28/16 at 10:59; Status DC Warfarin Sodium (Coumadin) 5 mg 1X WARF ONCE PO Last administered on 08/18/16 17:56; Start 08/18/16 at 16:00; Stop 08/18/16 at 16:01; Status DC Warfarin Sodium (Coumadin) 3 mg 1X WARF ONCE PO ; Start 08/19/16 at 16:00; Stop 08/19/16 at 16:01; Status Cancel Cefpodoxime Proxetil (Vantin) 100 mg BID PO Last administered on 08/26/16 20: 40; Start 08/19/16 at 21:00; Stop 08/26/16 at 21:01; Status DC Warfarin Sodium (Coumadin) 2.5 mg 1X WARF ONCE PO Last administered on 16:59; Start 08/19/16 at 16:00; Stop 08/19/16 at 16:01; Status DC Senna/Docusate Sodium 1 tab 1 tab PRN BID PRN PO CONSTIPATION Last administered on 08/20/16 14:18; Start 08/19/16 at 13:30; Stop 08/20/16 at 14:43; Status DC Sodium Chloride 250 ml @ 0 mls/hr 1X ONCE IV Last administered on 08/19/16 14: 33; Start 08/19/16 at 13:45; Stop 08/19/16 at 13:53; Status DC Sodium Chloride (Iv Sodium Chloride 0.9% 500ml Bag) 500 ml @ 0 mls/hr 1X ONCE IV Last administered on 08/19/16 16:58; Start 08/19/16 at 16:00; Stop 08/19/16 at 16:01; Status DC Senna/Docusate Sodium (Senna Plus) 1 tab PRN BID PRN PO CONSTIPATION Last administered on 09/03/16 18:07; Start 08/20/16 at 10:00 Bisacodyl (Dulcolax Supp) 10 mg 1X ONCE NE ; Start 08/20/16 at 11:00; Stop at 11:00; Status DC Bisacodyl (Dulcolax Supp) 10 mg 1X ONCE NE Last administered on 08/20/16 16:49 ; Start 08/20/16 at 14:30; Stop 08/20/16 at 14:31; Status DC Warfarin Sodium (Coumadin) 2 mg 1X WARF ONCE PO Last administered on 08/20/16 16:48; Start 08/20/16 at 16:00; Stop 08/20/16 at 16:01; Status DC Mineral Oil (Fleet Mineral Oil) 133 ml 1X ONCE NE ; Start 08/21/16 at 20:00; Stop 08/21/16 at 20:00; Status DC Non-Formulary Medication 1 ea Q4H PO Last administered on 08/21/16 16:18; Start 08/21/16 at 12:00; Stop 08/21/16 at 16:01; Status DC Sodium Bicarbonate 50 meq Q6H IV Last administered on 08/21/16 20:16; Start 08/21/16 at 14:00; Stop 08/21/16 at 20:01; Status DC Warfarin Sodium (Coumadin) 3 mg 1X WARF ONCE PO Last administered on 08/21/16 16:16; Start 08/21/16 at 16:00; Stop 08/21/16 at 16:01; Status DC Warfarin Sodium (Coumadin) 2.5 mg 1X WARF ONCE PO Last administered on 16:00; Start 08/22/16 at 16:00; Stop 08/22/16 at 16:01; Status DC Warfarin Sodium (Coumadin) 3 mg 1X WARF ONCE PO Last administered on 08/23/16 18:28; Start 08/23/16 at 16:00; Stop 08/23/16 at 16:01; Status DC Lidocaine/ Epinephrine (Xylocaine 2%-Epi 1:100,000) 20 ml STK-MED ONCE .ROUTE ; Start 08/24/16 at 10:54; Stop 08/24/16 at 10:55; Status DC Heparin Sodium (Porcine) 50127 unit 10,000 unit STK-MED ONCE .ROUTE ; Start 03/02 at 10:54; Stop 08/24/16 at 10:55; Status DC Heparin Sodium/ Sodium Chloride 500 ml @ As Directed STK-MED ONCE .ROUTE ; Start 08/24/16 at 10:54; Stop 08/24/16 at 10:55; Status DC Darbepoetin Dino (Aranesp) 60 mcg [id number] SQ Last administered on 08/31/16 21 :27; Start 08/24/16 at 21:00 Fentanyl Citrate (Fentanyl 2ml Vial) 100 mcg STK-MED ONCE .ROUTE ; Start at 11:26; Stop 08/24/16 at 11:27; Status DC Midazolam HCl 2 mg 2 mg STK-MED ONCE .ROUTE ; Start 08/24/16 at 11:26; Stop 03/02 at 11:27; Status DC Cefazolin Sodium (Ancef 1gm Ivpb For Omni) 0 ml @ As Directed STK-MED ONCE IV ; Start 08/24/16 at 11:26; Stop 08/24/16 at 11:27; Status DC Heparin Sodium/ Sodium Chloride 1,000 unit 1X ONCE IART Last administered on 12:23; Start 08/24/16 at 11:45; Stop 08/24/16 at 11:46; Status DC Lidocaine/ Epinephrine (Xylocaine 2%-Epi 1:100,000) 20 ml 1X ONCE IJ Last administered on 08/24/16 12:23; Start 08/24/16 at 11:45; Stop 08/24/16 at 11:46 ; Status DC Fentanyl Citrate (Fentanyl 2ml Vial) 100 mcg STK-MED ONCE .ROUTE ; Start at 11:58; Stop 08/24/16 at 11:59; Status DC Midazolam HCl (Versed) 2 mg STK-MED ONCE .ROUTE ; Start 08/24/16 at 11:58; Stop 08/24/16 at 11:59; Status DC Heparin Sodium (Porcine) (Heparin Sodium) 4,300 unit 1X ONCE IV Last administered on 08/24/16 12:15; Start 08/24/16 at 12:15; Stop 08/24/16 at 12:21 ; Status DC Midazolam HCl (Versed) 2 mg 1X ONCE IV Last administered on 08/24/16 12:30; Start 08/24/16 at 12:30; Stop 08/24/16 at 12:31; Status DC Fentanyl Citrate 100 mcg 100 mcg 1X ONCE IV Last administered on 08/24/16 12: 30; Start 08/24/16 at 12:30; Stop 08/24/16 at 12:31; Status DC Cefazolin Sodium (Ancef 1gm Ivpb For Omni) 50 ml @ 100 mls/hr 1X ONCE IV Last administered on 08/24/16 12:29; Start 08/24/16 at 12:30; Stop 08/24/16 at 12:59; Status DC Warfarin Sodium (Coumadin) 4 mg 1X WARF ONCE PO Last administered on 18:08; Start 08/24/16 at 16:00; Stop 08/24/16 at 16:01; Status DC Mineral Oil (Fleet Mineral Oil) 133 ml PRN DAILY PRN NE CONSTIPATION; Start 03/02 at 19:30 Info (PHARMACY MONITORING -- do not chart) 1 each PRN DAILY PRN MC SEE COMMENTS ; Start 08/25/16 at 12:45; Stop 08/27/16 at 13:18; Status DC Info (PHARMACY MONITORING -- do not chart) 1 each PRN DAILY PRN MC SEE COMMENTS ; Start 08/25/16 at 12:45; Stop 08/27/16 at 13:18; Status DC Warfarin Sodium (Coumadin) 4 mg 1X WARF ONCE PO Last administered on 16:11; Start 08/25/16 at 16:00; Stop 08/25/16 at 16:01; Status DC Tramadol HCl (Ultram) 50 mg PRN TID PRN PO PAIN Last administered on 09/02/16 21:38; Start 08/25/16 at 15:45 Info (PHARMACY MONITORING -- do not chart) 1 each PRN DAILY PRN MC SEE COMMENTS ; Start 08/26/16 at 06:45; Stop 08/27/16 at 13:18; Status DC Warfarin Sodium (Coumadin) 4 mg 1X WARF ONCE PO Last administered on 17:13; Start 08/26/16 at 16:00; Stop 08/26/16 at 16:01; Status DC Info (PHARMACY MONITORING -- do not chart) 1 each PRN DAILY PRN MC SEE COMMENTS ; Start 08/27/16 at 08:00; Status UNV Info (PHARMACY MONITORING -- do not chart) 1 each PRN DAILY PRN MC SEE COMMENTS ; Start 08/27/16 at 08:00; Status Cancel Warfarin Sodium (Coumadin) 4 mg 1X WARF ONCE PO Last administered on 18:32; Start 08/27/16 at 16:00; Stop 08/27/16 at 16:01; Status DC Warfarin Sodium 3 mg 3 mg 1X WARF ONCE PO Last administered on 08/28/16 17:15 ; Start 08/28/16 at 16:00; Stop 08/28/16 at 16:01; Status DC Sodium Chloride (Iv Sodium Chloride 0.9% 1000ml Bag) 1,000 ml @ 1,000 mls/hr Q1H PRN IV hypotension; Start 08/28/16 at 10:42; Stop 08/28/16 at 16:41; Status DC Sodium Chloride (Normal Saline Flush) 10 ml 1X PRN PRN IV AP catheter pack; Start 08/28/16 at 10:45; Stop 08/29/16 at 10:44; Status DC Sodium Chloride (Normal Saline Flush) 10 ml 1X PRN PRN IV CAPACITOR REPAIRER catheter pack; Start 08/28/16 at 10:45; Stop 08/29/16 at 10:44; Status DC Info (PHARMACY MONITORING -- do not chart) 1 each PRN DAILY PRN MC SEE COMMENTS ; Start 08/28/16 at 10:45; Status UNV Info (PHARMACY MONITORING -- do not chart) 1 each PRN DAILY PRN MC SEE COMMENTS ; Start 08/28/16 at 10:45; Status UNV Warfarin Sodium (Coumadin) 2.5 mg 1X WARF ONCE PO Last administered on 17:00; Start 08/29/16 at 16:00; Stop 08/29/16 at 16:01; Status DC Warfarin Sodium (Coumadin) 2 mg 1X WARF ONCE PO Last administered on 17:58; Start 08/30/16 at 16:00; Stop 08/30/16 at 16:01; Status DC Artificial Tears (Artificial Tears) 1 drop PRN Q15MIN PRN OU DRY EYE Last administered on 08/30/16 21:21; Start 08/30/16 at 18:00 Info (PHARMACY MONITORING -- do not chart) 1 each PRN DAILY PRN MC SEE COMMENTS ; Start 08/31/16 at 08:15; Stop 09/05/16 at 08:14; Status DC Info (PHARMACY MONITORING -- do not chart) 1 each PRN DAILY PRN MC SEE COMMENTS ; Start 08/31/16 at 08:15; Status UNV Warfarin Sodium (Coumadin - No Dose Today) 1 each 1X WARF ONCE MC ; Start 08/31 at 16:00; Stop 08/31/16 at 16:01; Status DC Warfarin Sodium (Coumadin) 2 mg 1X WARF ONCE PO Last administered on 17:47; Start 09/01/16 at 16:00; Stop 09/01/16 at 16:01; Status DC Zolpidem Tartrate (Ambien) 5 mg PRN QHS PRN PO INSOMNIA, MAY REPEAT IN 1HR Last administered on 09/04/16 21:13; Start 09/01/16 at 21:00 Warfarin Sodium 3 mg 3 mg 1X WARF ONCE PO Last administered on 09/02/16 17:30 ; Start 09/02/16 at 16:00; Stop 09/02/16 at 16:01; Status DC Sodium Chloride (Iv Sodium Chloride 0.9% 1000ml Bag) 1,000 ml @ 1,000 mls/hr Q1H PRN IV hypotension; Start 09/02/16 at 10:45; Stop 09/02/16 at 16:44; Status DC Info (PHARMACY MONITORING -- do not chart) 1 each PRN DAILY PRN MC SEE COMMENTS ; Start 09/02/16 at 10:45; Status UNV Nystatin (Nystop) 1 maria teresa BID TP Last administered on 09/04/16 21:12; Start at 21:00 Furosemide (Lasix) 40 mg [id number] IVP Last administered on 09/03/16 18:07; Start 09/03/16 at 10:30 Alprazolam (Xanax) 0.25 mg PRN Q8HRS PRN PO ANXIETY / AGITATION Last administered on 09/05/16 04:28; Start 09/03/16 at 10:00 Warfarin Sodium (Coumadin) 3 mg 1X WARF ONCE PO Last administered on 18:07; Start 09/03/16 at 16:00; Stop 09/03/16 at 16:01; Status DC Warfarin Sodium 3 mg 3 mg 1X WARF ONCE PO Last administered on 09/04/16 16:28 ; Start 09/04/16 at 16:00; Stop 09/04/16 at 16:01; Status DC Sodium Chloride 1,000 ml @ 1,000 mls/hr Q1H PRN IV hypotension; Start 09/04/16 at 10:55; Stop 09/04/16 at 16:54; Status DC Albumin Human (Albuminar) 200 ml @ 200 mls/hr 1X PRN PRN IV Hypotension Last administered on 09/04/16 11:08; Start 09/04/16 at 11:00; Stop 09/04/16 at 16:59 ; Status DC Sodium Chloride (Normal Saline Flush) 10 ml 1X PRN PRN IV AP catheter pack; Start 09/04/16 at 11:00; Stop 09/05/16 at 10:59; Status DC Sodium Chloride (Normal Saline Flush) 10 ml 1X PRN PRN IV CAPACITOR REPAIRER catheter pack; Start 09/04/16 at 11:00; Stop 09/05/16 at 10:59; Status DC Info (PHARMACY MONITORING -- do not chart) 1 each PRN DAILY PRN MC SEE COMMENTS ; Start 09/04/16 at 11:00; Stop 09/05/16 at 08:14; Status DC Info (PHARMACY MONITORING -- do not chart) 1 each PRN DAILY PRN MC SEE COMMENTS ; Start 09/04/16 at 11:00 Warfarin Sodium (Coumadin) 4 mg 1X WARF ONCE PO ; Start 09/05/16 at 16:00; Stop 09/05/16 at 16:01 Active Scripts Active Entresto 24 mg-26 mg Tablet (Sacubitril/Valsartan) 1 Each Tablet 1 Tab PO BID Coumadin (Warfarin Sodium) 2.5 Mg Tablet 2.5 Mg PO DAILY16 Reported Reglan (Metoclopramide Hcl) 10 Mg Tablet 5 Mg PO PRN BID PRN Atorvastatin Calcium 40 Mg Tablet 1 Tab PO DAILY Colestid (Colestipol Hcl) 1 Gm Tablet 1 Gm PO TID Pacerone (Amiodarone Hcl) 200 Mg Tablet 200 Mg PO DAILY Lasix (Furosemide) 80 Mg Tablet 1 Tab PO BID Gabapentin 100 Mg Capsule 1 Cap PO TID Aspir 81 (Aspirin) 81 Mg Tablet.dr 1 Tab PO DAILY Coreg (Carvedilol) 6.25 Mg Tablet 1 Tab PO BID K-Tab ER (Potassium Chloride) 20 Meq Tablet.er 20 Meq PO BID Vitals/I & O Vital Sign - Last 24 Hours 09/04/16 09/04/16 09/04/16 09/04/16 16:31 19:25 19:43 23:35 Temp 97.4 98.7 97.4 98.7 Pulse 69 71 71 Resp 16 B/P 94/57 101/62 95/52 Pulse Ox 96 97 O2 Delivery Room Air Room Air Room Air 09/05/16 09/05/16 03:35 07:00 Temp 98.4 97.8 98.4 97.8 Pulse 70 70 Resp 16 19 B/P 103/55 102/67 Pulse Ox 97 94 O2 Delivery Room Air Room Air Intake and Output 09/04/16 09/04/16 09/05/16 15:00 23:00 07:00 Intake Total 920 ml 399.2 ml Balance 920 ml 399.2 ml HEATHER CHERRY MD Sep 05, 2016 15:48
[2016-09-05] MEDS ORDERED: WARFARIN 4 MG TABLET. PO ONE (16:00)
[2016-09-05] MEDS: AMIODARONE HCL 200 MG TABLET. PO SCH (17:52)
[2016-09-05] MEDS: PANTOPRAZOLE 40 MG TABLET.DR. PO SCH (17:52)
[2016-09-05] MEDS: ASPIRIN ENTERIC COATED 81 MG TABLET.DR. PO SCH (17:52)
[2016-09-05] MEDS ORDERED: PANT40TA3 PO (18:09)
[2016-09-05] MEDS ORDERED: SENN8.6T67 PO (18:12)
[2016-09-05] MEDS ORDERED: TRAM50TA PO (18:12)
[2016-09-05 19:20] VITALS: BP 98/56
[2016-09-05] MEDS: ATORVASTATIN CALCIUM 40 MG TABLET. PO SCH (20:53)
[2016-09-05] MEDS: TRAMADOL 50 MG TABLET. PO PRN (20:54)
[2016-09-05] MEDS: ZOLPIDEM 5 MG TABLET. PO PRN (20:54)
[2016-09-05] MEDS ORDERED: IV NORMAL SALINE 1000ML BAG 1,000 ML IV PRN (23:24)
[2016-09-05 23:25] VITALS: BP 116/73
[2016-09-05] MEDS ORDERED: DIALYSIS PATIENT. MC PRN (23:30)
[2016-09-05] MEDS ORDERED: 0.9 % SODIUM CHLORIDE 10 ML DISP.SYRIN. IV PRN ×2 (23:30)
[2016-09-06 03:20] VITALS: BP 95/59
[2016-09-06 05:24] LABS: INR 2.2 (0.8-1.1); PROTHROMBIN TIME PATIENT 22.9 SEC (11.7-14.0)
[2016-09-06 07:27] VITALS: BP 102/52
[2016-09-06] MEDS: INSULIN ASPART 300 UNITS/3 ML INSULN.PEN SQ SCH (08:00)
[2016-09-06] MEDS: CARVEDILOL 6.25 MG TABLET. PO SCH (08:24)
[2016-09-06] MEDS: ASPIRIN ENTERIC COATED 81 MG TABLET.DR. PO SCH (08:24)
[2016-09-06] MEDS: PANTOPRAZOLE 40 MG TABLET.DR. PO SCH (08:24)
[2016-09-06] MEDS: AMIODARONE HCL 200 MG TABLET. PO SCH (08:25)
[2016-09-06] MEDS: ALPRAZolam 0.25 MG TABLET PO PRN (08:25)
[2016-09-06] MEDS: TRAMADOL 50 MG TABLET. PO PRN (08:26)
[2016-09-06] MEDS: NYSTATIN TOPICAL POWDER 15GM BOTTLE. TP SCH (09:00)
--- NOTE | 2016-09-06 11:24 | PDOC ---
PROGRESS NOTES Subjective Subjective no new problems Objective Objective Vital Signs Date Time Temp Pulse Resp B/P Pulse Ox O2 Delivery O2 Flow Rate FiO2 09/06/16 08:26 Room Air 09/06/16 08:25 70 09/06/16 08:00 2.0 09/06/16 07:27 98.3 16 102/52 95 98.3 Intake and Output 09/06/16 07:00 Intake Total 520 ml Output Total 0 ml Balance 520 ml Intake Oral 520 ml Output Urine Total 0 ml # Voids 1 Physical Exam Abdomen: Normal bowel sounds, Soft, No tenderness Heart: Regular rate, Normal S1, Normal S2, Other (1-2/6 systolic murmur) Extremities: No clubbing, No cyanosis General: Alert, Oriented X3, Cooperative, No acute distress HEENT: Atraumatic, PERRLA Lungs: Clear to auscultation MUSCULOSKELETAL: No joint tenderness, No deformity, No muscular tenderness noted Neck: Supple Neuro: Normal speech Psych/Mental Status: Mood NL Skin: No rashes, No significant lesion Diagnosis Problem List Problems Medical Problems: (1) Acute on chronic renal failure Status: Acute Assessment Assessment New ESRD on dialysis,started on dialysis last week * urinary retention improved. ac on crf. possible ATN 1. ARF with CKD II ATN SONA on HD 2. a/c systolic CHF ICM EF 10% AICD 3. HTN 4. DM II with CKD II diet control 5. hyperlipidemia 6. mild to mod MR 7. moderate pulmonary HTN 8. severe weakness and debility 9. metabolic encephalopathy POA 10. moderate chronic PCL malnutrition 11.PVD PLAN: d/c to [facility],moving to [place], [place] out pt dialysis 3 times a week and dobutamine infusions 3 times a week Problems: Plan Plan of Care Problems Medical Problems: (1) Acute on chronic renal failure Status: Acute Comment Review of Relevant I have reviewed the following items marquise (where applicable) has been applied. Labs Laboratory Tests Test 09/05/16 12:42 09/05/16 20:51 09/06/16 04:55 Glucose (Fingerstick) 95mg/dL (70-99) 126mg/dL (70-99) Prothrombin Time 22.9SEC (11.7-14.0) Prothromb Time International Ratio 2.2 (0.8-1.1) Microbiology 08/15/16 Urine Culture - Final, Complete 08/15/16 Urine Culture Result 1 (JV) - Final, Complete 08/15/16 Urine Culture Result 2 (JV) - Final, Complete 08/15/16 Antimicrobic Susceptibility - Final, Complete Medications Current Medications Info (PHARMACY MONITORING -- do not chart) 1 each PRN DAILY PRN MC SEE COMMENTS ; Start 09/05/16 at 23:30 Sodium Chloride (Iv Sodium Chloride 0.9% 1000ml Bag) 1,000 ml @ 1,000 mls/hr Q1H PRN IV hypotension; Start 09/05/16 at 23:24; Stop 09/06/16 at 05:24; Status DC Sodium Chloride (Normal Saline Flush) 10 ml 1X PRN PRN IV AP catheter pack; Start 09/05/16 at 23:30; Stop 09/06/16 at 23:29 Sodium Chloride (Normal Saline Flush) 10 ml 1X PRN PRN IV AUTOMOTIVE COLLISION REPAIR INSTRUCTOR catheter pack; Start 09/05/16 at 23:30; Stop 09/06/16 at 23:29 Warfarin Sodium 4 mg 4 mg 1X WARF ONCE PO Last administered on 09/05/16t 17:52 ; Start 09/05/16 at 16:00; Stop 09/05/16 at 16:01; Status DC Vitals/I & O Vital Sign - Last 24 Hours 09/05/16 09/05/16 09/05/16 09/05/16 15:00 17:52 17:52 19:20 Temp 98.1 98.1 98.1 98.1 Pulse 72 76 76 72 Resp 20 16 B/P 106/63 98/56 Pulse Ox 98 100 O2 Delivery Room Air Room Air 09/05/16 09/05/16 09/05/16 09/06/16 20:16 20:54 23:25 03:20 Temp 97.9 98.3 97.9 98.3 Pulse 73 69 Resp 16 14 B/P 116/73 95/59 Pulse Ox 98 99 O2 Delivery Room Air Room Air Room Air Room Air 09/06/16 09/06/16 09/06/16 09/06/16 07:27 08:00 08:24 08:25 Temp 98.3 98.3 Pulse 72 70 70 Resp 16 B/P 102/52 Pulse Ox 95 O2 Delivery Room Air Room Air O2 Flow Rate 2.0 09/06/16 08:26 O2 Delivery Room Air Intake and Output 09/05/16 09/05/16 09/06/16 15:00 23:00 07:00 Intake Total 520 ml Output Total 0 ml Balance 520 ml 0 ml AFSHAN SLADE MD Sep 06, 2016 11:23
--- NOTE | 2016-09-09 15:26 | PDOC ---
Provider Note Provider Note Discharge summary dictated. #[id number] AFSHAN SLADE MD Sep 09, 2016 15:26
--- NOTE | 2016-09-10 00:46 | DS ---
DATE OF DISCHARGE: 09/06/2016 REASON FOR ADMISSION TO THE HOSPITAL: Acute kidney failure, end-stage congestive heart failure, ejection fraction 10%, chronic systolic, and hyperkalemia. CONSULTATIONS: Dr. Barajas, Dr. Mccauley, Dr. Trujillo, Dr. Lester, and Dr. Butterfield of Urology. PROCEDURES DONE: 1. Insertion of port-a-cath for dobutamine infusions. 2. Insertion of dialysis catheter. 3. Hemodialysis . 4. Arterial Doppler lower extremities. HOSPITAL COURSE: This is a 71-year-old female who has history of diabetes, hypertension, chronic systolic heart failure, ejection fraction 10%, and cardiomyopathy. The patient has AICD and she has been doing relatively well until last couple of months, she was more short of breath, was admitted last month for heart failure, again this time her kidneys were going bad. Potassium was high at 6, BUN 100, and creatinine around 3. The patient was admitted to the hospital, was given IV fluids, in spite of that the kidneys did not improve. The patient is in congestive heart failure, not able to get the fluid off and Renal was consulted. The patient was started on hemodialysis, was given Perma-catheter for dialysis access, was dialyzed 3 times a week and the patient's condition was improving. Kidney function was improving with dialysis. The patient was seen by Cardiology, Dr. Barajas, had ejection fraction 10%, dilated cardiomyopathy and she also had AICD, has a pacemaker, which the battery was changed not too long ago.She was placed on low dose dobutamine infusions daily. The patient was having blisters on the heel,weak ,not able to ambulate deconditioned with weakness in the lower extremities seen by Dr. Trujillo, venous Doppler negative for DVT, had arterial Doppler, which shows significant bifurcation disease. The patient's condition was not improving, the vascular recommended conservative treatment ,if things does not need surgical intervention on the arterial circulation. The patient had at one time bladder retention, was seen by Urology, was recommended Flomax and after a couple of days, Whiteside catheter was discontinued and she was able to void. Patient was seen by multiple specialists ,but not improving,seen by by palliative team because of her end-stage congestive heart failure, had discussion, was made DNR, DNI and she would like to continue dialysis and see how she does and also if she does not improve, transition to hospice after that. 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 FINAL DIAGNOSES: 1. Acute kidney failure, possible acute tubular necrosis. 2. New End-stage renal disease, started on hemodialysis. 3. Chronic systolic heart failure, stage IV, 10% ejection fraction. 4. Diabetes, insulin-dependent. 5. Peripheral vascular disease with ischemia and blister on heals. 6. Hypertension. 7. Hyperlipidemia. 8. Bladder retention. 9. General debility. She was recommended to continue dobutamine infusions as outpatient 3 times a week in [place] and dialysis 3 times a week. Prognosis is poor.Hospice candidate. AFSHAN SLADE MD DR: JALYN/david JOB#: [id number] / [id number] [place]
== END 2016-09-06 09:45 | disposition home or self-care (01) | DRG 286 ==
LOC: 2 SOUTH 15:48
PROVIDERS: ADMIT Internal Medicine; ATTEND Internal Medicine
PROC: 02H633Z Insertion of Infusion Device into Right Atrium, Percutaneous Approach (ICD-10-PCS; principal; 2016-08-24)
PROC: B214YZZ Fluoroscopy of Right Heart using Other Contrast (ICD-10-PCS; 2016-08-24)
PROC: B244ZZZ Ultrasonography of Right Heart (ICD-10-PCS; 2016-08-24)
PROC: 5A1D60Z (ICD-10-PCS; 2016-08-24)
DX: I13.2 Hypertensive heart and chronic kidney disease with heart failure and with stage 5 chronic kidney disease, or end stage renal disease (principal); N17.0 Acute kidney failure with tubular necrosis; I50.23 Acute on chronic systolic (congestive) heart failure; G93.41 Metabolic encephalopathy; N18.6 End stage renal disease; L97.419 Non-pressure chronic ulcer of right heel and midfoot with unspecified severity; R18.8 Other ascites; E44.0 Moderate protein-calorie malnutrition; I42.0 Dilated cardiomyopathy; E11.22 Type 2 diabetes mellitus with diabetic chronic kidney disease; E11.42 Type 2 diabetes mellitus with diabetic polyneuropathy; E11.621 Type 2 diabetes mellitus with foot ulcer; E87.5 Hyperkalemia; F17.210 Nicotine dependence, cigarettes, uncomplicated; I25.10 Atherosclerotic heart disease of native coronary artery without angina pectoris; I27.2 Other secondary pulmonary hypertension; I34.0 Nonrheumatic mitral (valve) insufficiency; I48.91 Unspecified atrial fibrillation; E11.51 Type 2 diabetes mellitus with diabetic peripheral angiopathy without gangrene; D64.9 Anemia, unspecified; K59.00 Constipation, unspecified; L89.90 Pressure ulcer of unspecified site, unspecified stage; J44.9 Chronic obstructive pulmonary disease, unspecified; E78.5 Hyperlipidemia, unspecified; M16.11 Unilateral primary osteoarthritis, right hip; N31.2 Flaccid neuropathic bladder, not elsewhere classified; R33.9 Retention of urine, unspecified; G80.9 Cerebral palsy, unspecified; Z66 Do not resuscitate; Z79.01 Long term (current) use of anticoagulants; I25.2 Old myocardial infarction; Z79.4 Long term (current) use of insulin; Z82.49 Family history of ischemic heart disease and other diseases of the circulatory system; Z95.810 Presence of automatic (implantable) cardiac defibrillator; Z99.2 Dependence on renal dialysis; Z90.49 Acquired absence of other specified parts of digestive tract; Z91.041 Radiographic dye allergy status; Z91.018 Allergy to other foods; Z91.09 Other allergy status, other than to drugs and biological substances; Z68.32 Body mass index [BMI] 32.0-32.9, adult; Z79.82 Long term (current) use of aspirin; Z79.899 Other long term (current) drug therapy
CPT/HCPCS: 36415; 36558; 36561; 71020; 73502; 76770; 76937; 77001; 80048; 80053; 80069; 80076; 81001; 82728; 82947; 83540; 83550; 83735; 84100; 85007; 85027; 85045; 85610; 86704; 86706; 87086; 87186; 87340; 87341; 87517; 93005; 93923; A4215; C1750; C1751; C1892; J0690; J0696; J0881; J1250; J1756; J1815; J1940; J2250; J2405; J3010; J3370; J3490; J7030; J7040; P9046; 97110; 97116; 97530; 97535